=== PATIENT | male | born 1965 | race Caucasian/White ===

== ENCOUNTER 2017-02-22 11:43 | Emergency (ER) | payer BC ==
[2017-02-22] MEDS ORDERED: IBUPROFEN 600 MG TAB PO STA (12:16)
[2017-02-22] MEDS ORDERED: ACETAMINOPHEN TAB 500 MG TAB PO STA (12:16)
[2017-02-22] MEDS ORDERED: ALBUTEROL NEBULIZED 7.5 MG, IPRATROPIUM NEBULIZED 0.5 MG, SODIUM CHLORIDE 0.9% NEBULIZ ... INHALATION ONE ×3 (12:17)
[2017-02-22] MEDS ORDERED: methylPREDNISolone SOD SUCCI 125 MG/2 ML VIAL IV STA (12:17)
--- NOTE | 2017-02-22 12:21 | ED ---
General Adult HPI - General Chief complaint: Shortness of Breath Stated complaint: diff breathing,weakness Time Seen by Provider: 02/22/17 11:55 Source: patient, RN notes reviewed Mode of arrival: wheelchair Limitations: no limitations - History of Present Illness Initial comments: This is a 51-year-old male who presents emergency Department complaining of difficulty breathing. Patient states he has COPD and he still smokes. Patient states difficulty breathing his been ongoing for over a week. Patient states today he got so bad he decided he needed to come emergency department. Patient denies chest pain or palpitations. Patient denies any cough or fever. Patient denies any abdominal pain patient denies nausea vomiting diarrhea. Patient's other complaint is for over a month now his right leg is causing quite a bit of pain and dusky in appearance. - Related Data Home Medications Medication Instructions Recorded Confirmed ALPRAZolam [Xanax] 0.5 mg PO Q8H 02/22/17 02/22/17 Albuterol Inhaler [Ventolin Hfa 1 - 2 puff INHALATION RT-QID PRN 02/22/17 Inhaler] Citalopram Hydrobromide [CeleXA] 20 mg PO BID 02/22/17 02/22/17 Fish Oil/Dha/Epa [Fish Oil 1,200 1 cap PO DAILY 02/22/17 02/22/17 mg Fish Oil] Naproxen Sodium [Aleve] 220 mg PO BID PRN 02/22/17 02/22/17 Allergies Allergy/AdvReac Type Severity Reaction Status Date / Time No Known Allergies Allergy Verified 02/22/17 12:29 Review of Systems ROS Statement: Those systems with pertinent positive or pertinent negative responses have been documented in the HPI. ROS Other: All systems not noted in ROS Statement are negative. Past Medical History Past Medical History: Asthma History of Any Multi-Drug Resistant Organisms: None Reported Past Surgical History: Orthopedic Surgery Past Psychological History: Anxiety, Depression Smoking Status: Current every day smoker Past Alcohol Use History: Heavy, Occasional Past Drug Use History: None Reported General Exam - General Exam Comments Initial Comments: GENERAL: Patient is well-developed and well-nourished. Patient is nontoxic and well- hydrated and is in moderate distress. ENT: Neck is soft and supple. No significant lymphadenopathy is noted. Oropharynx is clear. Moist mucous membranes. Neck has full range of motion without eliciting any pain. EYES: The sclera were anicteric and conjunctiva were pink and moist. Extraocular movements were intact and pupils were equal round and reactive to light. Eyelids were unremarkable. PULMONARY: Diminished breath sounds bilaterally. CARDIOVASCULAR: There is a regular rate and rhythm without any murmurs gallops or rubs. ABDOMEN: Soft and nontender with normal bowel sounds. No palpable organomegaly was noted. There is no palpable pulsatile mass. SKIN: Right leg is dusky has extremely poor Refill and pulses in the foot cannot be palpated time NEUROLOGIC: Patient is alert and oriented x3. Cranial nerves II through XII are grossly intact. Motor and sensory are also intact. Normal speech, volume and content. Symmetrical smile. MUSCULOSKELETAL: Normal extremities with adequate strength and full range of motion. No lower extremity swelling or edema. No calf tenderness. LYMPHATICS: No significant lymphadenopathy is noted PSYCHIATRIC: Normal psychiatric evaluation. Limitations: no limitations Course Vital Signs 02/22/17 02/22/17 02/22/17 11:53 12:41 13:00 Temperature 99.9 F H Pulse Rate 122 H 109 H Respiratory 22 24 20 Rate Blood Pressure 133/79 151/94 O2 Sat by Pulse 100 Oximetry 02/22/17 02/22/17 02/22/17 13:01 13:17 13:34 Temperature Pulse Rate 114 H 120 H 114 H Respiratory Rate Blood Pressure O2 Sat by Pulse Oximetry 02/22/17 02/22/17 14:00 14:14 Temperature Pulse Rate 98 98 Respiratory 20 20 Rate Blood Pressure 137/74 125/68 O2 Sat by Pulse 100 100 Oximetry Medical Decision Making - Medical Decision Making EKG shows sinus tachycardia at 112 bpm [place] interval is 142 QRS is 92 QT interval 342 QTC is 466. Patient's EKG shows no ST segment elevation or depression or T wave abnormalities are noted. Patient received steroids and 3 consecutive breathing treatments and they seem to help him he did have slightly better air movement but patient did feel better. Patient has had a CT of chest and pelvis with runoff and it showed an occluded right femoral artery in the proximal area. With a partial occluded popliteal artery. I spoke with Dr. Staton who was on-call for Dr. Thomas for this patient I'm admitting him for COPD exacerbation. Dr. Solo was called earlier he did come see the patient and I made him aware of the CT results after they were done. Once Dr. Solo came back a second time to reevaluate the patient with the CAT scan information it was determined that the patient should be transferred to a tertiary center. I spoke with [facility] and they accepted the transfer and I transferred the patient. - Lab Data Result diagrams: 02/22/17 12:26 02/22/17 12:26 Lab Results 02/22/17 02/22/17 02/22/17 Range/Units 12:26 12:26 12:26 WBC 7.6 (3.8-10.6) k/uL RBC >7.00 H (4.30-5.90) m/uL Hgb 22.9 H* (13.0-17.5) gm/dL Hct 64.4 H* (39.0-53.0) % MCV 89.4 (80.0-100.0) fL MCH 31.8 (25.0-35.0) pg MCHC 35.6 (31.0-37.0) g/dL RDW 13.0 (11.5-15.5) % Plt Count 190 (150-450) k/uL Neutrophils % 78 % Lymphocytes % 10 % Monocytes % 8 % Eosinophils % 1 % Basophils % 1 % Neutrophils # 5.9 (1.3-7.7) k/uL Lymphocytes # 0.8 L (1.0-4.8) k/uL Monocytes # 0.6 (0-1.0) k/uL Eosinophils # 0.0 (0-0.7) k/uL Basophils # 0.1 (0-0.2) k/uL PT (9.0-12.0) sec INR (<1.2) APTT (22.0-30.0) sec D-Dimer <0.17 (<0.60) mg/L FEU Sodium (137-145) mmol/L Potassium (3.5-5.1) mmol/L Chloride (98-107) mmol/L Carbon Dioxide (22-30) mmol/L Anion Gap mmol/L BUN (9-20) mg/dL Creatinine (0.66-1.25) mg/dL Est GFR (MDRD) Af Amer (>60 ml/min/1.73 sqM) Est GFR (MDRD) Non-Af (>60 ml/min/1.73 sqM) Glucose (74-99) mg/dL Plasma Lactic Acid Rajeev (0.7-2.0) mmol/L Calcium (8.4-10.2) mg/dL Total Bilirubin (0.2-1.3) mg/dL AST (17-59) U/L ALT (21-72) U/L Alkaline Phosphatase (38-126) U/L Total Creatine Kinase 81 (55-170) U/L CK-MB (CK-2) 1.7 (0.0-2.4) ng/mL CK-MB (CK-2) Rel Index 2.1 Troponin I <0.012 (0.000-0.034) ng/mL Total Protein (6.3-8.2) g/dL Albumin (3.5-5.0) g/dL Urine Color Urine Appearance (Clear) Urine pH (5.0-8.0) Ur Specific [place] (1.001-1.035) Urine Protein (Negative) Urine Glucose (UA) (Negative) Urine Ketones (Negative) Urine Blood (Negative) Urine Nitrite (Negative) Urine Bilirubin (Negative) Urine Urobilinogen (<2.0) mg/dL Ur Leukocyte Esterase (Negative) Urine RBC (0-5) /hpf Urine WBC (0-5) /hpf Hyaline Casts (0-2) /lpf Urine Mucus (None) /hpf 02/22/17 02/22/17 02/22/17 Range/Units 12:26 12:26 13:06 WBC (3.8-10.6) k/uL RBC (4.30-5.90) m/uL Hgb (13.0-17.5) gm/dL Hct (39.0-53.0) % MCV (80.0-100.0) fL MCH (25.0-35.0) pg MCHC (31.0-37.0) g/dL RDW (11.5-15.5) % Plt Count (150-450) k/uL Neutrophils % % Lymphocytes % % Monocytes % % Eosinophils % % Basophils % % Neutrophils # (1.3-7.7) k/uL Lymphocytes # (1.0-4.8) k/uL Monocytes # (0-1.0) k/uL Eosinophils # (0-0.7) k/uL Basophils # (0-0.2) k/uL PT 11.1 (9.0-12.0) sec INR 1.1 (<1.2) APTT 25.0 (22.0-30.0) sec D-Dimer (<0.60) mg/L FEU Sodium 123 L (137-145) mmol/L Potassium 4.7 (3.5-5.1) mmol/L Chloride 90 L (98-107) mmol/L Carbon Dioxide 17 L (22-30) mmol/L Anion Gap 16 mmol/L BUN 7 L (9-20) mg/dL Creatinine 0.85 (0.66-1.25) mg/dL Est GFR (MDRD) Af Amer >60 (>60 ml/min/1.73 sqM) Est GFR (MDRD) Non-Af >60 (>60 ml/min/1.73 sqM) Glucose 126 H (74-99) mg/dL Plasma Lactic Acid Rajeev 3.3 H* (0.7-2.0) mmol/L Calcium 10.1 (8.4-10.2) mg/dL Total Bilirubin 3.1 H (0.2-1.3) mg/dL AST 74 H (17-59) U/L ALT 51 (21-72) U/L Alkaline Phosphatase 135 H (38-126) U/L Total Creatine Kinase (55-170) U/L CK-MB (CK-2) (0.0-2.4) ng/mL CK-MB (CK-2) Rel Index Troponin I (0.000-0.034) ng/mL Total Protein 8.5 H (6.3-8.2) g/dL Albumin 4.8 (3.5-5.0) g/dL Urine Color Urine Appearance (Clear) Urine pH (5.0-8.0) Ur Specific [place] (1.001-1.035) Urine Protein (Negative) Urine Glucose (UA) (Negative) Urine Ketones (Negative) Urine Blood (Negative) Urine Nitrite (Negative) Urine Bilirubin (Negative) Urine Urobilinogen (<2.0) mg/dL Ur Leukocyte Esterase (Negative) Urine RBC (0-5) /hpf Urine WBC (0-5) /hpf Hyaline Casts (0-2) /lpf Urine Mucus (None) /hpf 02/22/17 Range/Units 13:17 WBC (3.8-10.6) k/uL RBC (4.30-5.90) m/uL Hgb (13.0-17.5) gm/dL Hct (39.0-53.0) % MCV (80.0-100.0) fL MCH (25.0-35.0) pg MCHC (31.0-37.0) g/dL RDW (11.5-15.5) % Plt Count (150-450) k/uL Neutrophils % % Lymphocytes % % Monocytes % % Eosinophils % % Basophils % % Neutrophils # (1.3-7.7) k/uL Lymphocytes # (1.0-4.8) k/uL Monocytes # (0-1.0) k/uL Eosinophils # (0-0.7) k/uL Basophils # (0-0.2) k/uL PT (9.0-12.0) sec INR (<1.2) APTT (22.0-30.0) sec D-Dimer (<0.60) mg/L FEU Sodium (137-145) mmol/L Potassium (3.5-5.1) mmol/L Chloride (98-107) mmol/L Carbon Dioxide (22-30) mmol/L Anion Gap mmol/L BUN (9-20) mg/dL Creatinine (0.66-1.25) mg/dL Est GFR (MDRD) Af Amer (>60 ml/min/1.73 sqM) Est GFR (MDRD) Non-Af (>60 ml/min/1.73 sqM) Glucose (74-99) mg/dL Plasma Lactic Acid Rajeev (0.7-2.0) mmol/L Calcium (8.4-10.2) mg/dL Total Bilirubin (0.2-1.3) mg/dL AST (17-59) U/L ALT (21-72) U/L Alkaline Phosphatase (38-126) U/L Total Creatine Kinase (55-170) U/L CK-MB (CK-2) (0.0-2.4) ng/mL CK-MB (CK-2) Rel Index Troponin I (0.000-0.034) ng/mL Total Protein (6.3-8.2) g/dL Albumin (3.5-5.0) g/dL Urine Color [place] Urine Appearance Clear (Clear) Urine pH 6.5 (5.0-8.0) Ur Specific [place] 1.014 (1.001-1.035) Urine Protein Trace H (Negative) Urine Glucose (UA) Negative (Negative) Urine Ketones 2+ H (Negative) Urine Blood Negative (Negative) Urine Nitrite Negative (Negative) Urine Bilirubin 1+ H (Negative) Urine Urobilinogen 4.0 (<2.0) mg/dL Ur Leukocyte Esterase Moderate H (Negative) Urine RBC 1 (0-5) /hpf Urine WBC 9 H (0-5) /hpf Hyaline Casts 11 H (0-2) /lpf Urine Mucus Rare H (None) /hpf Critical Care Time Critical Care Time: Yes Total Critical Care Time: 35 Disposition Clinical Impression: Polycythemia, Femoral artery occlusion, COPD with acute exacerbation Disposition: OTHER INSTITUTION NOT DEFINED Referrals: Blas Espinal MD [Primary Care Provider] - 1-2 days Time of Disposition: 14:35 - Out of Hospital Transfer - Req. Specs Out of Hospital Transfer - Requested Specifics: Other Emergency Center ([facility])
[2017-02-22 12:40] LABS: Basophils # (A) 0.1 k/uL (0-0.2); Basophils % (A) 1 %; CH 32.2; CHCM 36.1; Eosinophils % (A) 1 %; HDW 2.06; Luc # (Auto) 0.24; Luc % (Auto) 3; Lymphocytes # (A) 0.8 k/uL (1.0-4.8); Lymphocytes % (A) 10 %; MCH 31.8 pg (25.0-35.0); MCHC 35.6 g/dL (31.0-37.0); MCV 89.4 fL (80.0-100.0); Mean Platelet Volume 7.1; Monocytes # (A) 0.6 k/uL (0-1.0); Monocytes % (A) 8 %; Neutrophils # (A) 5.9 k/uL (1.3-7.7); Neutrophils % (A) 78 %; WBC 7.6 k/uL (3.8-10.6); WBC (Perox) 7.81
[2017-02-22 12:49] LABS: HGB 22.9 gm/dL (13.0-17.5)
[2017-02-22 12:50] LABS: HCT 64.4 % (39.0-53.0); RBC >7.00 m/uL (4.30-5.90)
[2017-02-22 12:57] LABS: ALT 51 U/L (21-72); AST 74 U/L (17-59); Alkaline Phosphatase 135 U/L (38-126); Anion Gap 16 mmol/L; Blood Urea Nitrogen 7 mg/dL (9-20); Calcium 10.1 mg/dL (8.4-10.2); Carbon Dioxide 17 mmol/L (22-30); Chloride 90 mmol/L (98-107); Glucose 126 mg/dL (74-99); Non-African American GFR(MDRD) >60 (>60 ml/min/1.73 sqM); Potassium 4.7 mmol/L (3.5-5.1); Sodium 123 mmol/L (137-145); Total Bilirubin 3.1 mg/dL (0.2-1.3); Total Protein 8.5 g/dL (6.3-8.2)
[2017-02-22 13:01] LABS: Creatine Kinase 81 U/L (55-170)
--- NOTE | 2017-02-22 13:09 | XR ---
EXAMINATION TYPE: XR chest 2V DATE OF EXAM: 02/22/2017 COMPARISON: NONE HISTORY: Shortness of breath and asthma TECHNIQUE: Frontal and lateral views of the chest are obtained. FINDINGS: There is no focal air space opacity, pleural effusion, or pneumothorax seen. There is pulm onary hyperinflation and flattening of the diaphragms on the lateral image. The cardiac silhouette si ze is within normal limits. The osseous structures are intact. Overlying wire is seen at the right cardiophrenic angle. Mild degenerative changes of the thoracic spine. IMPRESSION: 1. No acute cardiopulmonary process. 2. Pulmonary hyperinflation, likely relating to the patient's history of asthma.
[2017-02-22 13:14] LABS: Creatine Kinase MB 1.7 ng/mL (0.0-2.4); Troponin I <0.012 ng/mL (0.000-0.034)
[2017-02-22] MEDS ORDERED: LORazepam 2 MG/ML SYRINGE IV STA (13:21)
[2017-02-22 13:35] LABS: Appearance,Urine Clear (Clear); Bilirubin,Urine 1+ (Negative); Glucose,Urine (UA) Negative (Negative); Ketones,Urine 2+ (Negative); Leukocyte Esterase,Urine Moderate (Negative); Mucus,Urine Rare /hpf; Nitrite,Urine Negative (Negative); PH, Urine 6.5 (5.0-8.0); Particle Count 3188; Protein,Urine Trace (Negative); RBC,Urine 1 /hpf (0-5); Specific Gravity,Urine 1.014 (1.001-1.035); UA Billing (MACRO vs. MICRO) MICRO; WBC,Urine 9 /hpf (0-5)
[2017-02-22 13:53] LABS: INR 1.1 (<1.2)
[2017-02-22 14:08] LABS: Prothrombin Time 11.1 sec (9.0-12.0)
--- NOTE | 2017-02-22 14:22 | CT ---
EXAMINATION TYPE: CT angio thoracic/abd aorta DATE OF EXAM: 02/22/2017 COMPARISON: NONE HISTORY: Discoloration right leg for [address] DLP: 977.5 mGycm. Automated Exposure Control for Dose Reduction was Utilized. CONTRAST: CT scan of the thorax, abdomen and pelvis is performed with IV Contrast, patient injected with 150 mL of Omnipaque 350. Three-dimensional reconstructions performed on an alternate workstation. FINDINGS: LUNGS: The lungs are grossly clear, there is no concerning parenchymal mass or nodule identified. Em physematous changes, interstitial lung disease change is present bilaterally. There is no pleural eff usion or pneumothorax seen. The tracheobronchial tree is patent. MEDIASTINUM: There are no greater than 1 cm hilar or mediastinal lymph nodes. No pericardial effusi on is seen. Small prevascular node is present. There are coronary artery calcifications present. OTHER: No additional significant abnormality is seen. LIVER/GB: The liver shows low attenuation likely due to fatty infiltration, the liver is enlarged. Ga llbladder is unremarkable. PANCREAS: No significant abnormality is seen. SPLEEN: No significant abnormality is seen. ADRENALS: No significant abnormality is seen. KIDNEYS: No significant abnormality is seen. BOWEL: Diverticular changes associated with the colon especially in the sigmoid region, descending co daren. GENITAL ORGANS: No gross abnormality seen. LYMPH NODES: No greater than 1cm abdominal or pelvic lymph nodes are appreciated. OSSEOUS STRUCTURES: Degenerative disc changes, facet arthropathy results in spinal stenosis at L4-5.. The aorta shows atheromatous change. The aorta shows normal caliber. No evident dissection. Three-ves beth transverse aorta is present, superior aortic branch vessels are patent. Celiac axis, superior mes enteric, renal arteries, inferior mesenteric artery are patent. Common iliac arteries are patent and densely calcified. Internal iliac, external iliac arteries are patent. Common femoral arteries are pa tent. The proximal right superficial femoral artery is occluded. Deep femoral branches are present, there i s reconstitution of the right popliteal artery above the level of the knee. Dense atheromatous change s are present in the popliteal artery, there is narrowing of the popliteal artery as well as associat ed calcification. Trifurcation vessels are patent proximally. Posterior tibial artery not well seen p eripherally, there are likely areas of plaque and stenosis extends peripherally. There is poor opacif ication of the peroneal artery, posterior tibial artery distally on the left. Stenoses. Anterior tibi al artery shows atheromatous change distally and possibly segmental stenosis. The left official femoral artery shows extensive atheromatous change with tendon stenoses. Deep femor al artery is patent. Popliteal artery also shows extensive atheromatous change and areas of narrowing . There may be popliteal aneurysm on the left, popliteal artery measures approximately 11 to 12 mm an d shows luminal plaque. Narrowing of the popliteal artery is present at this level. Trifurcation appe ars patent but shows atheromatous changes IMPRESSION: Right superficial femoral artery occlusion proximally as described. Peripheral vascular o cclusive disease. 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 Emphysema, in terstitial lung disease, coronary artery disease. Diverticulosis. Hepatic steatosis. Additional findi ngs above.
[2017-02-22] MEDS ORDERED: HEPARIN SODIUM,PORCINE/D5W PMX 25,000 UNIT in DEXTROSE/WATER 1 500ML.BAG IV SCH (14:36)
[2017-02-22] MEDS ORDERED: HEPARIN SODIUM,PORCINE 10,000 UNIT/ML 1 ML VIAL IV ONE (14:36)
[2017-02-22] MEDS ORDERED: IPRATROPIUM-ALBUTEROL 3 ML NEB INHALATION PRN (14:39)
[2017-02-22 15:22] VITALS: RESP 18
[2017-02-22 16:01] VITALS: BP 123/96; PULSE 104; TEMP 98.6
[2017-02-22] MEDS ORDERED: methylPREDNISolone SOD SUCCI 125 MG/2 ML VIAL IV SCH (18:00)
--- NOTE | 2017-02-23 08:10 | CONS ---
Date of consultation: 02-22-17 This is a 51-year-old gentleman who came to the emergency room with history of acute respiratory failure with severe chronic obstructive pulmonary disease. Patient has been complaining of some right foot pain for the last one month on and off and I was consulted for vascular evaluation on this gentleman. Patient has history of three packs a day smoking for the last 30-years. Also he has been diagnosed with severe chronic obstructive pulmonary disease. MEDICAL HISTORY: No history of diabetes, hypertension. PERSONAL HISTORY: Patient smoked three packs a day for the last 30-years. On examination the patient was seen in the room. The patient is extremely short of breath and has nasal oxygen and he cannot lay flat. He is in sitting position. His chest has crackles bilaterally. Abdomen is soft, nontender. Vascular examination: Brachial, radial pulses are present. Femorals are palpable bilaterally. Right leg is cooler than the left leg. Popliteal, posterior tibial and dorsalis pedis are not palpable. On the left side also the popliteal and posterior tibial and dorsalis pedis are not palpable. The right foot is more dusky than the left foot and there is no Doppler signal present of the dorsalis pedis and posterior tibial. On the left foot there is Doppler signal present. Motor function is diminished on the right side. Patient had CT of the chest and abdomen. CT was reviewed with the radiologist. Patient has atherosclerosis disease involving both iliac arteries and right common femoral artery was visualized. Profunda is not visualized. SFA is occluded from the takeoff and it reconstitutes above the knee with multiple atherosclerosis disease. Popliteal has severe atherosclerosis disease. There is very small tibial vessel noted below the knee and no flow noted to the foot. Patient was started on heparin. I have discussed with the sister and the mother. At this point this 51-year-old gentleman who has longstanding history of smoking prognosis is guarded because of diminutive flow noted to the right foot. Family wants to have a second opinion and we will arrange to go to tertiary center at [facility]. Patient started on heparin. Discussed with emergency room physician. They all agreed. [facility]
== END 2017-02-22 16:00 | disposition other institution (70) ==
LOC: EC 11:43 → UNDOADMIN 14:39 → 6SEL 14:39 → EC 16:00
DX: I74.3 Embolism and thrombosis of arteries of the lower extremities (principal); D75.1 Secondary polycythemia; R00.0 Tachycardia, unspecified; J44.1 Chronic obstructive pulmonary disease with (acute) exacerbation; F41.9 Anxiety disorder, unspecified; F32.9 Major depressive disorder, single episode, unspecified; F17.200 Nicotine dependence, unspecified, uncomplicated; Z79.899 Other long term (current) drug therapy
CPT/HCPCS: 96375 ×3; 96376 ×2; 96365 ×2; 99291 ×2; 36415; 94644; 93005; 85379; 80053; 82550; 82553; 83605; 84484; 85025; 85610; 85730; 81001; 87040; 87086; 71020; 75635; 71275; J2060; J1644 ×2; J2930; Q9967

== ENCOUNTER 2017-03-02 10:18 | Inpatient (IN) | payer BC ==
[2017-03-02] MEDS ORDERED: SODIUM CHLORIDE 0.9% 500 ML IV STA (11:04)
[2017-03-02 11:26] LABS: INR 4.6 (<1.2); Partial Thromboplastin Time 32.5 sec (22.0-30.0); Prothrombin Time 45.6 sec (9.0-12.0)
[2017-03-02 11:28] LABS: Basophils # (A) 0.1 k/uL (0-0.2); Basophils % (A) 1 %; CH 32.5; CHCM 33.5; Eosinophils # (A) 0.1 k/uL (0-0.7); Eosinophils % (A) 1 %; HCT 38.2 % (39.0-53.0); HDW 2.23; Luc # (Auto) 0.23; Luc % (Auto) 2; Lymphocytes # (A) 1.7 k/uL (1.0-4.8); Lymphocytes % (A) 18 %; MCH 31.5 pg (25.0-35.0); MCHC 32.4 g/dL (31.0-37.0); Mean Platelet Volume 8.2; Monocytes # (A) 0.6 k/uL (0-1.0); Monocytes % (A) 6 %; Neutrophils # (A) 6.6 k/uL (1.3-7.7); Neutrophils % (A) 71 %; RBC 3.92 m/uL (4.30-5.90); RDW 13.6 % (11.5-15.5); WBC 9.2 k/uL (3.8-10.6); WBC (Perox) 9.43
[2017-03-02 11:29] LABS: HGB 12.4 gm/dL (13.0-17.5); MCV 97.2 fL (80.0-100.0)
[2017-03-02] MEDS ORDERED: PANTOPRAZOLE 40 MG/10 ML VIAL IVP ONE (11:30)
[2017-03-02 11:39] LABS: ALT 52 U/L (21-72); AST 37 U/L (17-59); Alkaline Phosphatase 53 U/L (38-126); Anion Gap 8 mmol/L; Blood Urea Nitrogen 41 mg/dL (9-20); Calcium 8.7 mg/dL (8.4-10.2); Carbon Dioxide 22 mmol/L (22-30); Chloride 104 mmol/L (98-107); Creatine Kinase 31 U/L (55-170); Glucose 98 mg/dL (74-99); Magnesium 1.6 mg/dL (1.6-2.3); Non-African American GFR(MDRD) >60 (>60 ml/min/1.73 sqM); Potassium 4.2 mmol/L (3.5-5.1); Sodium 134 mmol/L (137-145); Total Bilirubin 0.4 mg/dL (0.2-1.3); Total Protein 5.5 g/dL (6.3-8.2)
[2017-03-02 11:51] LABS: Creatine Kinase MB 0.6 ng/mL (0.0-2.4); Troponin I <0.012 ng/mL (0.000-0.034)
[2017-03-02] MEDS ORDERED: NALOXONE 0.4 MG/ML 1 ML VIAL IV PRN (12:12)
[2017-03-02] MEDS ORDERED: PHYTONADIONE 5 MG in SODIUM CHLORIDE 0.9% 50 ML IVPB STA (12:36)
--- NOTE | 2017-03-02 12:46 | ED ---
General Adult HPI - General Chief complaint: GI Bleed Stated complaint: Low BP Time Seen by Provider: 03/02/17 10:30 Source: patient, family, RN notes reviewed, old records reviewed Mode of arrival: ambulatory Limitations: no limitations - History of Present Illness Initial comments: 51-year-old male with past medical history of COPD, peripheral vascular disease recently started on Coumadin presents with 10 episodes of dark stool, which progressed to bright red blood with blood clots. This began yesterday. He had not had a bowel movement in approximately one week. One week ago patient presented to the emergency department with chief complaint one month of pain in his right leg. He was found to have an arterial occlusion. He was sent to [facility] where he had a femoral bypass, these exact records are not available at the time this dictation, patient was started on Lovenox and Coumadin. Last dose of each of these was yesterday. At initial presentation the patient is complaining of generalized weakness and is thirsty. He denies significant abdominal pain. No known history of GI bleed. - Related Data Home Medications Medication Instructions Recorded Confirmed ALPRAZolam [Xanax] 0.5 mg PO Q8H 02/22/17 03/02/17 Albuterol Inhaler [Ventolin Hfa 1 - 2 puff INHALATION RT-QID PRN 02/22/17 Inhaler] Citalopram Hydrobromide [CeleXA] 20 mg PO BID 02/22/17 03/02/17 Fish Oil/Dha/Epa [Fish Oil 1,200 1 cap PO DAILY 02/22/17 03/02/17 mg Fish Oil] Naproxen Sodium [Aleve] 220 mg PO BID PRN 02/22/17 03/02/17 Aspirin 81 mg PO DAILY 03/02/17 03/02/17 Atorvastatin [Lipitor] 40 mg PO DIRECTED 03/02/17 03/02/17 Enoxaparin [Lovenox] 100 mg SQ Q12H 03/02/17 03/02/17 Warfarin [Coumadin] 7.5 mg PO HS 03/02/17 03/02/17 oxyCODONE HCL [Oxyir] 5 mg PO Q4HR PRN 03/02/17 03/02/17 Allergies Allergy/AdvReac Type Severity Reaction Status Date / Time No Known Allergies Allergy Verified 03/02/17 11:31 Review of Systems ROS Statement: Those systems with pertinent positive or pertinent negative responses have been documented in the HPI. ROS Other: All systems not noted in ROS Statement are negative. Past Medical History Past Medical History: Asthma Additional Past Medical History / Comment(s): dvt etoh abuse History of Any Multi-Drug Resistant Organisms: None Reported Past Surgical History: Orthopedic Surgery Additional Past Surgical History / Comment(s): fem pop bipass Past Psychological History: Anxiety, Depression Smoking Status: Former smoker Past Alcohol Use History: None Reported, Heavy, Occasional Past Drug Use History: None Reported General Exam Limitations: no limitations General appearance: alert, lethargic, in distress Head exam: Present: atraumatic, normocephalic Eye exam: Present: normal appearance, other (Pale palpebral conjunctiva) ENT exam: Present: mucous membranes dry Respiratory exam: Present: normal lung sounds bilaterally. Absent: respiratory distress, wheezes Cardiovascular Exam: Present: tachycardia GI/Abdominal exam: Present: soft. Absent: distended, tenderness Rectal exam: Present: heme (+) stool, bloody stool Extremities exam: Present: normal inspection, full ROM, normal capillary refill , other (Bilateral 2+ pulses, DP signals present.). Absent: pedal edema Neurological exam: Present: alert, oriented X3, CN II-XII intact. Absent: motor sensory deficit Psychiatric exam: Present: normal affect, normal mood Skin exam: Present: pallor. Absent: cyanosis, diaphoretic Course Vital Signs 03/02/17 03/02/17 03/02/17 10:22 10:27 11:27 Temperature 98.1 F 98.2 F Pulse Rate 102 H 96 Respiratory 20 19 Rate Blood Pressure 89/54 98/59 O2 Sat by Pulse 92 L 99 Oximetry 03/02/17 12:00 Temperature Pulse Rate 87 Respiratory 19 Rate Blood Pressure 96/61 O2 Sat by Pulse 100 Oximetry - Reevaluation(s) Reevaluation #1: 03/02/17 12:38 Patient is reevaluated multiple times. Blood pressure does remain low. Patient is responsive, able to answer questions, somewhat lethargic. EKG Findings - EKG Comments: EKG Findings:: EKG shows normal sinus rhythm, ventricular rate 98, ND interval 126, QRS duration 84, QTC 413 Procedures - Central Line Placement Right SC Consent Obtained: verbal consent Time Out Performed: Yes Patient Placed on Monitor/Pulse Ox: Yes Prep: mask, gown, gloves Central Line Prep: Chlorhexidine scrub, sterile drapes applied Local Anesthesia Used: Lidocaine 1% Amount of Anesthesia Used (mls): 2 Ultrasound Used for Placement: No Central Line Lumen Inserted: triple Bloods Obtained for Lab: Yes Central Line Position: good blood return, all ports aspirated, flushed, capped, sutured in place with 2-0 silk Dressing Applied: Tegaderm Post Procedure X-Ray: other (Pending) Patient Tolerated Procedure: well Complications: none, other (Pending x-ray) Medical Decision Making - Medical Decision Making 51-year-old male with recent femoral bypass surgery, started on Coumadin and Lovenox presents with GI bleed. Bleed is significant. His had 10 episodes of bright red blood with clots. Patient is initially hypotensive and tachycardic. He does receive moderate resuscitation with normal saline. 2 units of packed RBCs is ordered and 2 units of fresh frozen plasma for INR reversal is ordered. Initial hemoglobin is 12, however hemoglobin one week ago was 23, this represents 11 g drop in hemoglobin. Despite the relatively normal hemoglobin at this time. He will be empirically transfused 2 units of packed RBCs. Case is discussed with vascular surgery given his recent femoral bypass, at this time the recommendation is to reverse his anticoagulation even in the setting of this recent operation considering the risk of exsanguination. Case is also discussed with gastroenterology. Patient will be admitted to the intensive care unit for further resuscitation and treatment. Right subclavian triple lumen is placed in the emergency department. Patient currently receiving transfusion. Diagnosis: Hemorrhagic shock, acute GI bleed likely lower, acute blood loss anemia. - Lab Data Result diagrams: 03/02/17 11:06 03/02/17 11:06 Lab Results 03/02/17 03/02/17 03/02/17 Range/Units 11:05 11:06 11:06 WBC 9.2 (3.8-10.6) k/uL RBC 3.92 L (4.30-5.90) m/uL Hgb 12.4 L D (13.0-17.5) gm/dL Hct 38.2 L (39.0-53.0) % MCV 97.2 D (80.0-100.0) fL MCH 31.5 (25.0-35.0) pg MCHC 32.4 (31.0-37.0) g/dL RDW 13.6 (11.5-15.5) % Plt Count 281 (150-450) k/uL Neutrophils % 71 % Lymphocytes % 18 % Monocytes % 6 % Eosinophils % 1 % Basophils % 1 % Neutrophils # 6.6 (1.3-7.7) k/uL Lymphocytes # 1.7 (1.0-4.8) k/uL Monocytes # 0.6 (0-1.0) k/uL Eosinophils # 0.1 (0-0.7) k/uL Basophils # 0.1 (0-0.2) k/uL PT (9.0-12.0) sec INR (<1.2) APTT (22.0-30.0) sec Sodium (137-145) mmol/L Potassium (3.5-5.1) mmol/L Chloride (98-107) mmol/L Carbon Dioxide (22-30) mmol/L Anion Gap mmol/L BUN (9-20) mg/dL Creatinine (0.66-1.25) mg/dL Est GFR (MDRD) Af Amer (>60 ml/min/1.73 sqM) Est GFR (MDRD) Non-Af (>60 ml/min/1.73 sqM) Glucose (74-99) mg/dL Plasma Lactic Acid Rajeev (0.7-2.0) mmol/L Calcium (8.4-10.2) mg/dL Magnesium (1.6-2.3) mg/dL Total Bilirubin (0.2-1.3) mg/dL AST (17-59) U/L ALT (21-72) U/L Alkaline Phosphatase (38-126) U/L Total Creatine Kinase 31 L (55-170) U/L CK-MB (CK-2) 0.6 (0.0-2.4) ng/mL CK-MB (CK-2) Rel Index 1.9 Troponin I <0.012 (0.000-0.034) ng/mL Total Protein (6.3-8.2) g/dL Albumin (3.5-5.0) g/dL Stool Occult Blood Positive (Negative) Blood Type Blood Type Recheck Antibody Screen Crossmatch Transfuse Plasma Spec Expiration Date 03/02/17 03/02/17 03/02/17 Range/Units 11:06 11:06 11:06 WBC (3.8-10.6) k/uL RBC (4.30-5.90) m/uL Hgb (13.0-17.5) gm/dL Hct (39.0-53.0) % MCV (80.0-100.0) fL MCH (25.0-35.0) pg MCHC (31.0-37.0) g/dL RDW (11.5-15.5) % Plt Count (150-450) k/uL Neutrophils % % Lymphocytes % % Monocytes % % Eosinophils % % Basophils % % Neutrophils # (1.3-7.7) k/uL Lymphocytes # (1.0-4.8) k/uL Monocytes # (0-1.0) k/uL Eosinophils # (0-0.7) k/uL Basophils # (0-0.2) k/uL PT 45.6 H (9.0-12.0) sec INR 4.6 H (<1.2) APTT 32.5 H (22.0-30.0) sec Sodium 134 L (137-145) mmol/L Potassium 4.2 (3.5-5.1) mmol/L Chloride 104 (98-107) mmol/L Carbon Dioxide 22 (22-30) mmol/L Anion Gap 8 mmol/L BUN 41 H (9-20) mg/dL Creatinine 0.80 (0.66-1.25) mg/dL Est GFR (MDRD) Af Amer >60 (>60 ml/min/1.73 sqM) Est GFR (MDRD) Non-Af >60 (>60 ml/min/1.73 sqM) Glucose 98 (74-99) mg/dL Plasma Lactic Acid Rajeev 1.9 (0.7-2.0) mmol/L Calcium 8.7 (8.4-10.2) mg/dL Magnesium 1.6 (1.6-2.3) mg/dL Total Bilirubin 0.4 (0.2-1.3) mg/dL AST 37 (17-59) U/L ALT 52 (21-72) U/L Alkaline Phosphatase 53 (38-126) U/L Total Creatine Kinase (55-170) U/L CK-MB (CK-2) (0.0-2.4) ng/mL CK-MB (CK-2) Rel Index Troponin I (0.000-0.034) ng/mL Total Protein 5.5 L (6.3-8.2) g/dL Albumin 3.0 L (3.5-5.0) g/dL Stool Occult Blood (Negative) Blood Type Blood Type Recheck Antibody Screen Crossmatch Transfuse Plasma Spec Expiration Date 03/02/17 03/02/17 Range/Units 11:06 11:46 WBC (3.8-10.6) k/uL RBC (4.30-5.90) m/uL Hgb (13.0-17.5) gm/dL Hct (39.0-53.0) % MCV (80.0-100.0) fL MCH (25.0-35.0) pg MCHC (31.0-37.0) g/dL RDW (11.5-15.5) % Plt Count (150-450) k/uL Neutrophils % % Lymphocytes % % Monocytes % % Eosinophils % % Basophils % % Neutrophils # (1.3-7.7) k/uL Lymphocytes # (1.0-4.8) k/uL Monocytes # (0-1.0) k/uL Eosinophils # (0-0.7) k/uL Basophils # (0-0.2) k/uL PT (9.0-12.0) sec INR (<1.2) APTT (22.0-30.0) sec Sodium (137-145) mmol/L Potassium (3.5-5.1) mmol/L Chloride (98-107) mmol/L Carbon Dioxide (22-30) mmol/L Anion Gap mmol/L BUN (9-20) mg/dL Creatinine (0.66-1.25) mg/dL Est GFR (MDRD) Af Amer (>60 ml/min/1.73 sqM) Est GFR (MDRD) Non-Af (>60 ml/min/1.73 sqM) Glucose (74-99) mg/dL Plasma Lactic Acid Rajeev (0.7-2.0) mmol/L Calcium (8.4-10.2) mg/dL Magnesium (1.6-2.3) mg/dL Total Bilirubin (0.2-1.3) mg/dL AST (17-59) U/L ALT (21-72) U/L Alkaline Phosphatase (38-126) U/L Total Creatine Kinase (55-170) U/L CK-MB (CK-2) (0.0-2.4) ng/mL CK-MB (CK-2) Rel Index Troponin I (0.000-0.034) ng/mL Total Protein (6.3-8.2) g/dL Albumin (3.5-5.0) g/dL Stool Occult Blood (Negative) Blood Type O Positive Blood Type Recheck No Antibody Screen NEGATIVE Crossmatch See Detail Transfuse Plasma 03/02/17 Spec Expiration Date 03/05/2017 - 9 Critical Care Time Critical Care Time: Yes Total Critical Care Time: 40 Disposition Clinical Impression: Hematochezia, Hemorrhagic shock Disposition: ADMITTED IP TO THIS [facility] Condition: Serious Referrals: Blas Espinal MD [Primary Care Provider] - 1-2 days Decision to Admit Reason: Admit from EC Decision Date: 03/02/17 Decision Time: 12:05
--- NOTE | 2017-03-02 13:16 | P.CONS ---
History of Present Illness - Reason for Consult Consult date: 03/02/17 GI bleed Requesting physician: Cristobal Thomas - History of Present Illness 51-year-old gentleman patient of Dr. Espinal [facility] polycythemia recently evaluated in the ER on 02/22/2017 and transferred to [facility] secondary to right lower extremity peripheral occlusive disease and thrombosis. Status post right lower extremity femoral bypass at [facility] a week ago and presents with acute painless rectal bleeding. Patient was discharged from [facility] on Sunday. Constipated for a week. Yesterday he wasn't feeling well symptoms of fatigue weakness then followed by 2 gross bloody bowel movements yesterday afternoon. He was evaluated yesterday afternoon by his PCP and told he had low blood pressure but he did not mention to his PCP he had 2 bloody bowel movements. He continued to not feel well yesterday evening then passed several more gross bloody bowel movements. Systolic blood pressure 80s-100s. Heart rate 82-102. Afebrile. He started Coumadin, and Lovenox twice daily Sunday at [facility]. His last dose of Coumadin was Sunday and his last dose of Lovenox was yester morning. Admission INR 4.6. Hemoglobin 12.4. BUN 41. Denies fever chills melena or gross hematochezia. CT abdomen and pelvis 02/22/2017 reported diverticulosis. No history of GI bleeding. No history of colonoscopy. No recent NSAIDs even though home medications include Aleve however patient states he has not taken it for a long time. He is scheduled to receive 2 units of blood and 2 units of FFP along with vitamin K. Review of Systems RConstitutional: Denies fever, chills, sweats, weight gain, or loss. HEENT: Negative for migraines, blurred vision or loss, earaches, drainage, tinnitus, oral mucosal lesions, dysphagia, or odynophagia. Cardiac: Negative for chest pain, arrhythmias, or palpitation. Respiratory: Negative for shortness of breath, hemoptysis, cough, or sputum production. Gastrointestinal: See HPI for pertinent findings. Genitourinary: Negative for hematuria, urgency, frequency, polyuria, dysuria, or penile discharge. Musculoskeletal: Negative for muscle aches, swelling, arthritis, and arthralgias. Neurologic: Negative for stroke or TIA. Endocrine: Negative for thyroid problems. Skin: Negative for rash or itching. Psychiatric: Negative history for depression and anxietye All systems: negative (See HPI) Past Medical History Past Medical History: Asthma Additional Past Medical History / Comment(s): dvt etoh abuse History of Any Multi-Drug Resistant Organisms: None Reported Past Surgical History: Orthopedic Surgery Additional Past Surgical History / Comment(s): fem pop bipass Past Psychological History: Anxiety, Depression Smoking Status: Former smoker Past Alcohol Use History: None Reported, Heavy, Occasional Past Drug Use History: None Reported Medications and Allergies Home Medications Medication Instructions Recorded Confirmed Type ALPRAZolam [Xanax] 0.5 mg PO Q8H 02/22/17 03/02/17 History Albuterol Inhaler [Ventolin Hfa 1 - 2 puff INHALATION RT-QID PRN 02/22/17 History Inhaler] Citalopram Hydrobromide [CeleXA] 20 mg PO BID 02/22/17 03/02/17 History Fish Oil/Dha/Epa [Fish Oil 1,200 1 cap PO DAILY 02/22/17 03/02/17 History mg Fish Oil] Naproxen Sodium [Aleve] 220 mg PO BID PRN 02/22/17 03/02/17 History Aspirin 81 mg PO DAILY 03/02/17 03/02/17 History Atorvastatin [Lipitor] 40 mg PO DIRECTED 03/02/17 03/02/17 History Enoxaparin [Lovenox] 100 mg SQ Q12H 03/02/17 03/02/17 History Warfarin [Coumadin] 7.5 mg PO HS 03/02/17 03/02/17 History oxyCODONE HCL [Oxyir] 5 mg PO Q4HR PRN 03/02/17 03/02/17 History Allergies Allergy/AdvReac Type Severity Reaction Status Date / Time No Known Allergies Allergy Verified 03/02/17 11:31 Physical Exam Vitals: Vital Signs Temp Pulse Resp BP Pulse Ox 03/02/17 12:50 97.9 F 82 16 103/63 100 03/02/17 12:40 98.8 F 85 16 96/60 100 03/02/17 12:00 87 19 96/61 100 03/02/17 11:27 96 19 98/59 99 03/02/17 10:27 98.2 F 03/02/17 10:22 98.1 F 102 H 20 89/54 92 L Intake and Output 03/01/17 03/02/17 03/02/17 22:59 06:59 14:59 Intake Total 0 Balance 0 Intake: Blood Product 0 Rc Pheresis As-3 Unit 0 [id number] Other: Weight 92.986 kg Patient Weight 03/03/17 06:59 Weight 92.986 kg General appearance: The patient is alert, appears tired. HET: Head is normocephalic and atraumatic. Pupils are equal and reactive. Oropharynx is clear without lesions. Neck: Supple without lymphadenopathy. Trachea midline. Heart: S1 S2. Regular rate and rhythm. Lungs: No crackles or wheezes are heard. Abdomen: Soft, nontender, nondistended with bowel sounds. No peritoneal signs. No palpable organomegaly or masses. Extremities: Right groin incision with danna without erythema or drainage. Normal skin color and turgor. No cyanosis, rash, ulceration, clubbing, or edema. Radial and pedal pulses are 2/4 bilaterally. Neurological: No focal deficits. Strength and sensation are grossly intact. Rectal: Gross burgundy colored blood. Results CBC & Chem 7: 03/02/17 11:06 03/02/17 11:06 Labs: Abnormal Lab Results - Last 24 Hours (Table) 03/02/17 03/02/17 03/02/17 Range/Units 11:06 11:06 11:06 RBC 3.92 L (4.30-5.90) m/uL Hgb 12.4 L D (13.0-17.5) gm/dL Hct 38.2 L (39.0-53.0) % PT (9.0-12.0) sec INR (<1.2) APTT (22.0-30.0) sec Sodium 134 L (137-145) mmol/L BUN 41 H (9-20) mg/dL Total Creatine Kinase 31 L (55-170) U/L Total Protein 5.5 L (6.3-8.2) g/dL Albumin 3.0 L (3.5-5.0) g/dL Crossmatch 03/02/17 03/02/17 Range/Units 11:06 11:06 RBC (4.30-5.90) m/uL Hgb (13.0-17.5) gm/dL Hct (39.0-53.0) % PT 45.6 H (9.0-12.0) sec INR 4.6 H (<1.2) APTT 32.5 H (22.0-30.0) sec Sodium (137-145) mmol/L BUN (9-20) mg/dL Total Creatine Kinase (55-170) U/L Total Protein (6.3-8.2) g/dL Albumin (3.5-5.0) g/dL Crossmatch See Detail Assessment and Plan (1) GI bleed Narrative/Plan: Symptomatic anemia component of acute blood loss. Suspect colonic diverticular bleed based on CT findings from 02/22/2017 exacerbated by warfarin-induced coagulopathy and Lovenox. Status: Acute (2) Warfarin-induced coagulopathy Status: Acute (3) Hematochezia Status: Acute (4) Femoral artery occlusion Status: Acute (5) Polycythemia Status: Acute Plan: 1. Blood transfusion. FFP. Vitamin K. Hold anticoagulation. 2. Nothing by mouth. 3. Recommend general surgical consultation. 4. Inpatient colonoscopy discussed but will be contingent on clinical course. 5. Tagged RBC scan if bleeding accelerates and does not improve with reversal agents. 6. CBC every 6 hours. Thank you for this kind referral and the opportunity to participate in the care of your patient. This consultation was discussed with Dr. Verdin. The impression and plan of care have been directed as dictated.
--- NOTE | 2017-03-02 13:19 | XR ---
EXAMINATION TYPE: XR chest 1V portable DATE OF EXAM: 03/02/2017 HISTORY: Shortness of breath. COMPARISON: February 22, 2017 TECHNIQUE: Single view of the chest is submitted. FINDINGS: Right-sided central venous line with its distal tip overlying the SVC. No evidence for pneumothorax. There is no evidence for focal infiltrate. The heart is stable. Hilar and mediastinal structures are within normal limits. Degenerative changes are seen of the dorsal spine. Chronic appearing right rib deformity. IMPRESSION: 1. Chronic changes without evidence for acute pulmonary disease.
--- NOTE | 2017-03-02 13:51 | P.CNPUL ---
History of Present Illness Consult date: 03/02/17 Reason for consult: other Chief complaint: GI bleed, anemia History of present illness: Consult dated 03/02/2017 This is a 51-year-old male who has a history of underlying asthma peripheral vascular occlusive disease and was recently started on both Coumadin and Lovenox following a surgery done at [facility]. The patient apparently presented here late last week with a femoral occlusion. Was transferred to [facility]. The patient apparently had a fem-pop bypass and the patient was put on Lovenox to bridge him with anticoagulation with Coumadin. Apparently he started having a bowel movement some last night which had dark initially and then became more bloody. He apparently was found be very anemic in the emergency room today. About 6 days at [facility]. This name of surgeon is not known. The patient was placed on Lovenox and Coumadin when he was discharged there. The patient has received nor is quite received 2 units of PRBCs and 2 units of fresh frozen plasma. The patient apparently is feeling very weak and fatigued. Does have a history of underlying asthma. Takes an albuterol inhaler for that. Also uses Xanax for anxiety. Also takes Celexa fish oil and Aleve. Also apparently on aspirin Lipitor the Lovenox and warfarin and oxycodone. ALLERGIES are denied. Medical history is positive for a previous history of a DVT and asthma. Also history of alcohol abuse. Surgical history includes the recent fem-pop bypass. Social history is positive for previous tobacco use. Has a previous history of heavy alcohol use. No illicit drug use. The patient will be made moved to the ICU. Blood has been started as well as fresh frozen plasma. He received vitamin K as well. Review of Systems 12 point review of system is positive for weakness and bright red bleeding per rectum. Past Medical History Past Medical History: Asthma Additional Past Medical History / Comment(s): dvt etoh abuse History of Any Multi-Drug Resistant Organisms: None Reported Past Surgical History: Orthopedic Surgery Additional Past Surgical History / Comment(s): fem pop bipass Past Psychological History: Anxiety, Depression Smoking Status: Former smoker Past Alcohol Use History: None Reported, Heavy, Occasional Past Drug Use History: None Reported Medications and Allergies Home Medications Medication Instructions Recorded Confirmed Type ALPRAZolam [Xanax] 0.5 mg PO Q8H 02/22/17 03/02/17 History Albuterol Inhaler [Ventolin Hfa 1 - 2 puff INHALATION RT-QID PRN 02/22/17 History Inhaler] Citalopram Hydrobromide [CeleXA] 20 mg PO BID 02/22/17 03/02/17 History Fish Oil/Dha/Epa [Fish Oil 1,200 1 cap PO DAILY 02/22/17 03/02/17 History mg Fish Oil] Naproxen Sodium [Aleve] 220 mg PO BID PRN 02/22/17 03/02/17 History Aspirin 81 mg PO DAILY 03/02/17 03/02/17 History Atorvastatin [Lipitor] 40 mg PO DIRECTED 03/02/17 03/02/17 History Enoxaparin [Lovenox] 100 mg SQ Q12H 03/02/17 03/02/17 History Warfarin [Coumadin] 7.5 mg PO HS 03/02/17 03/02/17 History oxyCODONE HCL [Oxyir] 5 mg PO Q4HR PRN 03/02/17 03/02/17 History Allergies Allergy/AdvReac Type Severity Reaction Status Date / Time No Known Allergies Allergy Verified 03/02/17 11:31 Physical Exam Osteopathic Statement: *. No significant issues noted on an osteopathic structural exam other than those noted in the History and Physical/Consult. Vitals: Vital Signs Temp Pulse Resp BP Pulse Ox 03/02/17 13:44 99.0 F 81 18 104/64 03/02/17 13:38 99.0 F 88 18 104/64 03/02/17 13:20 99.0 F 83 18 94/61 03/02/17 13:00 88 20 92/53 100 03/02/17 12:50 97.9 F 82 16 103/63 100 03/02/17 12:40 98.8 F 85 16 96/60 100 03/02/17 12:00 87 19 96/61 100 03/02/17 11:27 96 19 98/59 99 03/02/17 10:27 98.2 F 03/02/17 10:22 98.1 F 102 H 20 89/54 92 L Intake and Output 03/01/17 03/02/17 03/02/17 22:59 06:59 14:59 Intake Total 0 Balance 0 Intake: Blood Product 0 Ffp 24 Cpda Unit 0 [id number] Rc Pheresis As-3 Unit 0 [id number] Other: Weight 92.986 kg Patient Weight 03/03/17 06:59 Weight 92.986 kg No acute distress, the patient does look pale. Does look fatigued. HEENT examination is grossly unremarkable. Mucous membranes are bit dry. Neck supple. Full range of motion. Cardiovascular examination reveals regular rhythm rate. S1-S2 normal. Lungs reveal clear breath sounds. No wheezes or rhonchi. Abdomen soft. Bowel sounds are noted. Patient not really having much in way of abdominal pain. Extremities are intact. Skin without rash. Results - Laboratory Findings CBC and BMP: 03/02/17 11:06 03/02/17 11:06 PT/INR, D-dimer PT 45.6 sec (9.0-12.0) H 03/02/17 11:06 INR 4.6 (<1.2) H 03/02/17 11:06 Abnormal lab findings: Abnormal Labs 03/02/17 03/02/17 03/02/17 11:06 11:06 11:06 RBC 3.92 L Hgb 12.4 L D Hct 38.2 L PT INR APTT Sodium 134 L BUN 41 H Total Creatine Kinase 31 L Total Protein 5.5 L Albumin 3.0 L Crossmatch 03/02/17 03/02/17 11:06 11:06 RBC Hgb Hct PT 45.6 H INR 4.6 H APTT 32.5 H Sodium BUN Total Creatine Kinase Total Protein Albumin Crossmatch See Detail Assessment and Plan (1) Asthma Status: Acute (2) GI bleed Status: Acute (3) Hematochezia Status: Acute (4) Warfarin-induced coagulopathy Status: Acute (5) Femoral artery occlusion Status: Acute Plan: Plan dated 03/02/2017 The patient can be transferred up to the ICU. He is to receive fresh frozen plasma PRBCs and vitamin K. The patient will be seen by GI. Additional recommendations suggestions forthcoming. The patient is hemodynamically stable currently. His respiratory status seems stable. Additional recommendations suggestions are forthcoming. We'll check hemoglobin about every 6 hours. We' ll watch him closely for any signs of deterioration. Time with Patient: Greater than 30
[2017-03-02 14:38] LABS: Glucose,Whole Blood 86 mg/dL (75-99)
[2017-03-02 18:56] LABS: Basophils % (A) 0 %; CH 32.5; CHCM 33.8; Eosinophils # (A) 0.1 k/uL (0-0.7); Eosinophils % (A) 2 %; HCT 28.3 % (39.0-53.0); HDW 2.39; Luc # (Auto) 0.12; Luc % (Auto) 2; Lymphocytes # (A) 1.7 k/uL (1.0-4.8); Lymphocytes % (A) 30 %; MCH 31.3 pg (25.0-35.0); MCHC 32.5 g/dL (31.0-37.0); MCV 96.4 fL (80.0-100.0); Monocytes # (A) 0.4 k/uL (0-1.0); Monocytes % (A) 7 %; Neutrophils # (A) 3.4 k/uL (1.3-7.7); Neutrophils % (A) 59 %; RBC 2.94 m/uL (4.30-5.90); RDW 14.1 % (11.5-15.5); WBC 5.7 k/uL (3.8-10.6); WBC (Perox) 5.63
[2017-03-02 18:59] LABS: HGB 9.2 gm/dL (13.0-17.5)
--- NOTE | 2017-03-02 19:03 | NM ---
EXAMINATION TYPE: NM GI bleeding DATE OF EXAM: 03/02/2017 HISTORY: COMPARISON: NONE Following administration of 3 ml PYP 30.0 mCi Tc 99m Sodium Pertechnete. Immediate images post inject ion. FINDINGS: There is some tracer accumulation in the left upper quadrant in the anticipated region of the distal transverse colon. There appears to be progressive increase tracer accumulation in the descending colo n. IMPRESSION: The exam appears to show active bleeding involving the distal transverse colon
[2017-03-02] MEDS: SODIUM CHLORIDE 0.9% 1,000 ML IV SCH (20:00)
[2017-03-02] MEDS ORDERED: ATORVASTATIN 40 MG TAB PO SCH (20:45)
[2017-03-02] MEDS ORDERED: ALPRAZolam 0.5 MG TAB PO SCH (20:45)
[2017-03-02] MEDS: CITALOPRAM HYDROBROMIDE 20 MG TAB PO SCH (21:09)
[2017-03-02] MEDS: PANTOPRAZOLE 40 MG/10 ML VIAL IV SCH (21:09)
[2017-03-03 00:12] LABS: CH 32.3; CHCM 34.2; HCT 26.5 % (39.0-53.0); HDW 2.42; HGB 9.1 gm/dL (13.0-17.5); MCH 32.8 pg (25.0-35.0); MCHC 34.5 g/dL (31.0-37.0); MCV 94.8 fL (80.0-100.0); Mean Platelet Volume 8.1; RBC 2.79 m/uL (4.30-5.90); RDW 13.5 % (11.5-15.5); WBC 5.8 k/uL (3.8-10.6)
[2017-03-03] MEDS: ALPRAZolam 0.5 MG TAB PO PRN ×3 (02:12→20:59)
[2017-03-03 06:27] LABS: Basophils % (A) 1 %; CH 32.4; Eosinophils # (A) 0.1 k/uL (0-0.7); Eosinophils % (A) 3 %; HCT 25.6 % (39.0-53.0); HGB 8.4 gm/dL (13.0-17.5); Luc % (Auto) 2; Lymphocytes # (A) 1.3 k/uL (1.0-4.8); Lymphocytes % (A) 27 %; MCH 31.5 pg (25.0-35.0); MCHC 32.9 g/dL (31.0-37.0); MCV 95.8 fL (80.0-100.0); Mean Platelet Volume 8.1; Monocytes # (A) 0.3 k/uL (0-1.0); Monocytes % (A) 7 %; Neutrophils % (A) 61 %; RBC 2.67 m/uL (4.30-5.90); RDW 13.5 % (11.5-15.5); WBC 4.9 k/uL (3.8-10.6); WBC (Perox) 4.81
[2017-03-03 06:45] LABS: INR 1.1 (<1.2); Prothrombin Time 10.8 sec (9.0-12.0)
[2017-03-03 07:00] LABS: ALT 55 U/L (21-72); AST 57 U/L (17-59); Alkaline Phosphatase 40 U/L (38-126); Anion Gap 2 mmol/L; Blood Urea Nitrogen 24 mg/dL (9-20); Calcium 7.8 mg/dL (8.4-10.2); Carbon Dioxide 23 mmol/L (22-30); Chloride 108 mmol/L (98-107); Glucose 85 mg/dL (74-99); Magnesium 1.6 mg/dL (1.6-2.3); Non-African American GFR(MDRD) >60 (>60 ml/min/1.73 sqM); Phosphorous 3.3 mg/dL (2.5-4.5); Potassium 3.7 mmol/L (3.5-5.1); Sodium 133 mmol/L (137-145); Total Bilirubin 0.8 mg/dL (0.2-1.3); Total Protein 4.1 g/dL (6.3-8.2)
[2017-03-03] MEDS: CITALOPRAM HYDROBROMIDE 20 MG TAB PO SCH ×2 (09:10→20:59)
[2017-03-03] MEDS: MAGNESIUM SULFATE-D5W PMX 1 GM in DEXTROSE/WATER 1 100ML.BAG IVPB SCH ×2 (09:10→13:03)
[2017-03-03] MEDS: SODIUM CHLORIDE 0.9% 1,000 ML IV SCH ×3 (09:10→17:20)
[2017-03-03] MEDS: POTASSIUM CHLORIDE 10 MEQ in WATER FOR INJECTION 1 100ML.BAG IVPB SCH ×2 (09:10→13:04)
[2017-03-03] MEDS: PANTOPRAZOLE 40 MG/10 ML VIAL IV SCH ×2 (09:11→21:00)
--- NOTE | 2017-03-03 10:40 | P.PN ---
Subjective This is a 51-year-old male who has a history of underlying asthma peripheral vascular occlusive disease and was recently started on both Coumadin and Lovenox following a surgery done at [facility]. The patient apparently presented here late last week with a femoral occlusion. Was transferred to [facility]. The patient apparently had a fem-pop bypass and the patient was put on Lovenox to bridge him with anticoagulation with Coumadin. Apparently he started having a bowel movement some last night which had dark initially and then became more bloody. He apparently was found be very anemic in the emergency room today. About 6 days at [facility]. This name of surgeon is not known. The patient was placed on Lovenox and Coumadin when he was discharged there. The patient has received nor is quite received 2 units of PRBCs and 2 units of fresh frozen plasma. The patient apparently is feeling very weak and fatigued. Does have a history of underlying asthma. Takes an albuterol inhaler for that. Also uses Xanax for anxiety. Also takes Celexa fish oil and Aleve. Also apparently on aspirin Lipitor the Lovenox and warfarin and oxycodone. ALLERGIES are denied. Medical history is positive for a previous history of a DVT and asthma. Also history of alcohol abuse. Surgical history includes the recent fem-pop bypass. Social history is positive for previous tobacco use. Has a previous history of heavy alcohol use. No illicit drug use. The patient will be made moved to the ICU. Blood has been started as well as fresh frozen plasma. He received vitamin K as well. The patient is seen again today 03/03/2017 in follow-up in the intensive care unit. He is awake and alert in no acute distress. He is feeling quite a bit better today as compared to yesterday. Still some weakness and fatigue. He denies any chest pain. No shortness of breath. Dizziness or lightheadedness. 3 black tarry stools last evening. None thus far this morning. His hemoglobin is currently 8.4. He is status post packed red blood cells and 2 units of fresh frozen plasma. His INR is 1.1. Take red blood cell study revealed active bleeding involving the distal transverse colon. The plan is for colonoscopy in the a.m. Objective - Vital Signs Vital signs: Vital Signs Temp 98.2 F 03/03/17 09:00 Pulse 68 03/03/17 10:00 Resp 24 03/03/17 10:00 BP 96/59 03/03/17 10:00 Pulse Ox 98 03/03/17 10:00 Intake & Output 03/02/17 03/03/17 03/03/17 18:59 06:59 18:59 Intake Total 1343 1200 400 Output Total 300 1800 200 Balance 1043 -600 200 Weight 92.986 kg 86.7 kg Intake: IV 300 1200 400 Sodium Chloride 0.9% 1, 300 1200 400 000 ml @ 100 mls/hr IV . Q10H [facility] Rx#:[id number] Blood Product 1043 Ffp 24 Cpda Unit 217 [id number] Ffp 24 Cpda Unit 206 [id number] Rc Pheresis As-3 Unit 310 [id number] Rc Pheresis As-3 Unit 310 [id number] Output: Urine 300 1800 200 Other: Voiding Method Urinal Urinal # Bowel Movements 0 1 0 - Exam GENERAL EXAM: Alert, active, comfortable in no apparent distress. HEAD: Normocephalic. EYES: Normal reaction of pupils, equal size. NOSE: Clear with pink turbinates. THROAT: No erythema or exudates. NECK: No masses, no JVD. CHEST: No chest wall deformity. LUNGS: Equal air entry with no crackles, wheeze, rhonchi or dullness. CVS: S1 and S2 normal with no audible murmurs, regular rhythm. ABDOMEN: No hepatosplenomegaly, normal bowel sounds, no guarding or rigidity. SPINE: No scoliosis or deformity SKIN: No rashes CENTRAL NERVOUS SYSTEM: No focal deficits, tone is normal in all 4 extremities. - Labs CBC & Chem 7: 03/03/17 06:00 03/03/17 06:00 Labs: Abnormal Lab Results - Last 24 Hours (Table) 03/02/17 03/02/17 03/02/17 Range/Units 11:06 11:06 11:06 RBC 3.92 L (4.30-5.90) m/uL Hgb 12.4 L D (13.0-17.5) gm/dL Hct 38.2 L (39.0-53.0) % PT (9.0-12.0) sec INR (<1.2) APTT (22.0-30.0) sec Sodium 134 L (137-145) mmol/L Chloride (98-107) mmol/L BUN 41 H (9-20) mg/dL Calcium (8.4-10.2) mg/dL Total Creatine Kinase 31 L (55-170) U/L Total Protein 5.5 L (6.3-8.2) g/dL Albumin 3.0 L (3.5-5.0) g/dL Crossmatch 03/02/17 03/02/17 03/02/17 Range/Units 11:06 11:06 18:45 RBC 2.94 L (4.30-5.90) m/uL Hgb 9.2 L D (13.0-17.5) gm/dL Hct 28.3 L (39.0-53.0) % PT 45.6 H (9.0-12.0) sec INR 4.6 H (<1.2) APTT 32.5 H (22.0-30.0) sec Sodium (137-145) mmol/L Chloride (98-107) mmol/L BUN (9-20) mg/dL Calcium (8.4-10.2) mg/dL Total Creatine Kinase (55-170) U/L Total Protein (6.3-8.2) g/dL Albumin (3.5-5.0) g/dL Crossmatch See Detail 03/02/17 03/03/17 03/03/17 Range/Units 23:50 06:00 06:00 RBC 2.79 L 2.67 L (4.30-5.90) m/uL Hgb 9.1 L 8.4 L (13.0-17.5) gm/dL Hct 26.5 L 25.6 L (39.0-53.0) % PT (9.0-12.0) sec INR (<1.2) APTT (22.0-30.0) sec Sodium 133 L (137-145) mmol/L Chloride 108 H (98-107) mmol/L BUN 24 H (9-20) mg/dL Calcium 7.8 L (8.4-10.2) mg/dL Total Creatine Kinase (55-170) U/L Total Protein 4.1 L (6.3-8.2) g/dL Albumin 2.1 L (3.5-5.0) g/dL Crossmatch Assessment and Plan Plan: Pression: #1 Acute gastrointestinal bleeding with positive tagged RBC revealing active bleeding involving the distal transverse colon. #2 Supratherapeutic coagulopathy secondary to warfarin and Lovenox, recovered. Current INR 1.1. #3 Recent femoral-popliteal bypass with stent placement. #4 History of chronic tobacco dependence. #5 History of heavy alcohol use. #6 History of anxiety/depression. Plan: The patient was seen and evaluated by Dr. Waters. He is currently stable from the critical care standpoint. He could be transferred out to the regular medical floor later this afternoon. Continue to monitor his hemoglobin. The plan is for possible colonoscopy in the a.m. We'll continue to follow.
[2017-03-03] MEDS ORDERED: POTASSIUM CHLORIDE 10 MEQ, LIDOCAINE 2% INJ 10 MG in SODIUM CHLORIDE 0.9% 100 ML IVPB SCH (14:00)
--- NOTE | 2017-03-03 14:32 | P.HPIM ---
History of Present Illness H&P Date: 03/03/17 Chief Complaint: GI bleed History of presenting complaint: This is a 50-year-old patient I came to see twice yesterday when patient was out of the room, and for testing and saw this patient this morning. He follows with Dr. Espinal. Patient come to the ER on 02/22/2017 and transferred to [facility] for acute arterial occlusion. Patient did have a fem-pop bypass done patient was then discharged from there 3-4 days ago. Patient 2 days ago feeling weak and tired and presented with gross bloody bowel movements and is his family doctor within moved him right away to the hospital. Patient did receive 2 units of blood as patient was bleeding significantly had 4 bloody bowel movements. Patient also Coumadin with INR of 4.6 did receive vitamin K and fresh frozen plasma. Patient did have a tagged WBC scan that showed bleeding in the distal transverse colon. Patient does feel very tired and rundown. Seen by Dr. Anderson from GI. GEN.: Tired EYES: None HEENT: None NECK: None RESPIRATORY: Some shortness of breath CARDIOVASCULAR: None GASTROINTESTINAL: No abdominal pain GENITOURINARY: None MUSCULOSKELETAL: None LYMPHATICS: None HEMATOLOGICAL: As above PSYCHIATRY: Some anxiety and depression NEUROLOGICAL: None Past medical history: COPD, peripheral artery disease, right femoral-popliteal bypass at age of [age] at 02/22/2017, anxiety depression Past surgical history: Bilaterally arthroscopic surgery, right fem-pop bypass as above Home medications reviewed in the computer ALLERGIES: None Social history: Smokes a pack and a half a day for close to 30 years seasonal spoke about 2 weeks has averaged about 4-5 beers a day about 15 years loss to 3 weeks. Lives with his parents. 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 EYES: Pupils equal. Conjunctiva palel. HEENT: External appearance of nose and ears normal, oral cavity grossly normal. NECK: JVD not raised; masses not palpable. HEART: First and second heart sounds are normal; no edema. LUNGS: Respiratory rate normal; decreased breath sounds. ABDOMEN: Soft, nontender, liver spleen not palpable, no masses palpable. LYMPHATICS: No lymph nodes palpable in the axilla and neck. PSYCH: [Alert and oriented x3; mood and affect anxious appearing l. NEUROLOGICAL: Cranial nerves grossly intact; no facial asymmetry, power and sensation grossly intact. Investigations: Initial hemoglobin 12.4 then dropped down to 8.4 this morning. INR is 4.6 down to 1.1 potassium 4. 2 GI nuclear scan as above Assessment: -Acute severe GI bleed from the bleeding source being transverse colon as seen in the tagged RBC scan from patient being on Coumadin -Acute severe blood loss anemia from GI bleed requiring 2 units of blood and causing hypotension with no shock -COPD in a current smoker -Chronic nicotine dependence patient is smoker -Chronic alcohol dependence to recently -Peripheral arterial disease with recent fem-pop bypass -Chronic depression not otherwise specified in remission Plan: Gastroenterology/Dr. Michael Anderosn was consulted. Patient had more bloody stools. Hence surgery will be consulted. Patient begin a nicotine patch. H&H followed closely. Care was discussed with the patient. Past Medical History Past Medical History: COPD, Vascular Disorder Additional Past Medical History / Comment(s): PVD, DVT R leg-recent R femoral popliteal bypass at [facility] [place] 02/22/17, History of Any Multi-Drug Resistant Organisms: None Reported Past Surgical History: Orthopedic Surgery Additional Past Surgical History / Comment(s): R fem pop bypass 02/22/17 [facility] [place], bilateral knee arthroscopic surgeries. Past Anesthesia/Blood Transfusion Reactions: No Reported Reaction Additional Past Anesthesia/Blood Transfusion Reaction / Comment(s): Pt is currently receiving blood-no reaction at this time. Smoking Status: Former smoker - Past Family History Mother Family Medical History: Cancer, Hyperlipidemia Additional Family Medical History / Comment(s): Mother had skin cancer. She is living. Father Family Medical History: Hyperlipidemia, Hypertension Additional Family Medical History / Comment(s): Father has heart condition. Medications and Allergies Home Medications Medication Instructions Recorded Confirmed Type ALPRAZolam [Xanax] 0.5 mg PO Q8H 02/22/17 03/02/17 History Albuterol Inhaler [Ventolin Hfa 1 - 2 puff INHALATION RT-QID PRN 02/22/17 History Inhaler] Citalopram Hydrobromide [CeleXA] 20 mg PO BID 02/22/17 03/02/17 History Fish Oil/Dha/Epa [Fish Oil 1,200 1 cap PO DAILY 02/22/17 03/02/17 History mg Fish Oil] Naproxen Sodium [Aleve] 220 mg PO BID PRN 02/22/17 03/02/17 History Aspirin 81 mg PO DAILY 03/02/17 03/02/17 History Atorvastatin [Lipitor] 40 mg PO DIRECTED 03/02/17 03/02/17 History Enoxaparin [Lovenox] 100 mg SQ Q12H 03/02/17 03/02/17 History Warfarin [Coumadin] 7.5 mg PO HS 03/02/17 03/02/17 History oxyCODONE HCL [Oxyir] 5 mg PO Q4HR PRN 03/02/17 03/02/17 History Allergies Allergy/AdvReac Type Severity Reaction Status Date / Time No Known Allergies Allergy Verified 03/02/17 11:31 Results CBC & Chem 7: 03/03/17 06:00 03/03/17 06:00
[2017-03-03] MEDS ORDERED: PEG 3350-NA SULF,BICARB,CL/KCL 4,000 ML BOTTLE PO ONE (17:00)
--- NOTE | 2017-03-03 20:22 | PN ---
DATE OF SERVICE: 03/03/17 The patient is a 51 -year-old pleasant white male admitted to the hospital with acute GI bleed. He presented with multiple episodes of maroon colored stool yesterday and drooped his hemoglobin from 12 to 8.4. He received two units of blood in the emergency room yesterday. The patient was just discharged home from [facility] after having fem-fem bypass surgery five days ago. He was discharged home on Coumadin as well as Lovenox. Currently on hold and the coagulopathy has been reversed with Vitamin K and fresh frozen plasma yesterday. He was admitted to the Intensive Care Unit. He had at least three bloody bowel movements through the night but presently tapering off. He denies any abdominal pain. He did have a tagged RBC scan that showed active bleeding in the distal transverse colon that showed possible active bleeding in the distal transverse colon. This morning, the patient states that he is feeling better. No abdominal pain. No nausea or vomiting. No bloody bowel movements in the last six hours. Complains of some dizziness. On physical examination, he appears comfortable in no apparent distress. Vital signs are stable. Blood pressure 87/52. Pulse rate 61. Temperature 97.5. HEENT: Unremarkable. Conjunctivae pink. Sclerae anicteric. Oral cavity no lesions. Neck no JVD or lymph node enlargement. Chest clear to auscultation. Heart regular rate and rhythm. Abdomen is soft. Nontender. Nondistended. Bowel sounds positive. No organomegaly. Extremities no pedal edema. Skin no rashes. Neurological: Alert and oriented times three. No focal deficits. Labs: Hemoglobin today is 8.4. WBC 4.9. Platelets are normal. INR 1.1. BUN 24, creatinine 0.7. IMPRESSION: 1. Acute gastrointestinal bleed, possibly lower in etiology. Tagged RBC scan done yesterday showed possible bleeding from the distal transverse colon. Presently hemodynamically stable. Last bleeding episode was about six to eight hours ago. 2. Coagulopathy secondary to Coumadin, currently reversed with FFP and Vitamin K. INR this morning is 1.1. 3. Status post fem-fem bypass surgery a week ago at [facility] presently stable. RECOMMENDATIONS: 1. Continue with a clear liquid diet. 2. We will proceed with EGD and colonoscopy tomorrow. I discussed with the patient the risks, benefits and complications and he is agreeable to it. In the meantime, we will continue to monitor CBC every six hours and transfuse as needed. Thank you for this consultation. ADORE
[2017-03-04 04:22] LABS: CH 32.4; CHCM 33.9; HCT 23.1 % (39.0-53.0); HDW 2.42; HGB 7.7 gm/dL (13.0-17.5); MCHC 33.3 g/dL (31.0-37.0); MCV 95.9 fL (80.0-100.0); Mean Platelet Volume 8.5; RBC 2.41 m/uL (4.30-5.90); RDW 13.3 % (11.5-15.5); WBC 4.5 k/uL (3.8-10.6)
[2017-03-04 04:39] LABS: Anion Gap 3 mmol/L; Blood Urea Nitrogen 12 mg/dL (9-20); Calcium 7.8 mg/dL (8.4-10.2); Carbon Dioxide 23 mmol/L (22-30); Chloride 108 mmol/L (98-107); Glucose 83 mg/dL (74-99); Magnesium 1.8 mg/dL (1.6-2.3); Non-African American GFR(MDRD) >60 (>60 ml/min/1.73 sqM); Phosphorous 3.2 mg/dL (2.5-4.5); Potassium 3.7 mmol/L (3.5-5.1); Sodium 134 mmol/L (137-145)
[2017-03-04] MEDS: SODIUM CHLORIDE 0.9% 1,000 ML IV SCH ×2 (04:47→19:39)
[2017-03-04] MEDS ORDERED: POTASSIUM CHLORIDE 20 MEQ in WATER FOR INJECTION 1 100ML.BAG IVPB ONE (06:39)
--- NOTE | 2017-03-04 09:28 | P.PN ---
Subjective Progress note dated 03/04/2017 This is a 51-year-old male who was up in the intensive care unit. The patient' s doing better. His apparently scheduled for a colonoscopy in the EGD today. He has no supplemental oxygen. He just receiving room air. His IV is 0.9 normal saline at 100 mL an hour he's received 2 units of PRBCs and 2 units of fresh frozen plasma. Also some vitamin K. He seems be doing relatively well. Not having any further bowel movements of any significance. The patient denies any complaints. No nausea vomiting. No diarrhea. No chest pain or chest discomfort. No dizziness.. The patient seems to be relatively stable. The plan is to move him to the general medical floor after his procedure as long as a don't find anything significant either on the EGD or colonoscopy. Objective - Vital Signs Vital signs: Vital Signs Temp 97.7 F 03/04/17 04:00 Pulse 56 L 03/04/17 07:00 Resp 13 03/04/17 07:00 BP 93/58 03/04/17 07:00 Pulse Ox 97 03/04/17 07:00 Intake & Output 03/03/17 03/04/17 03/04/17 18:59 06:59 18:59 Intake Total 1600 1450 100 Output Total 1700 1300 Balance -100 150 100 Weight 87.3 kg Intake: IV 1200 1200 100 Sodium Chloride 0.9% 1, 1200 1200 100 000 ml @ 100 mls/hr IV . Q10H [facility] Rx#:[id number] Intake, IV Titration 400 Amount Magnesium Sulfate-D5w Pmx 200 1 gm In Dextrose/Water 1 100ml.bag @ 100 mls/hr IVPB Q1H [facility] Rx#: [id number] Potassium Chloride 10 meq 100 In Water For Injection 1 100ml.bag @ 100 mls/hr IVPB Q1H [facility] Rx#: [id number] Potassium Chloride 10 meq 100 Lidocaine 2% Inj 10 mg In Sodium Chloride 0.9% 100 ml @ 100 mls/hr IVPB Q1HR [facility] Rx#:[id number] Oral 250 Output: Urine 1700 1300 Other: Voiding Method Urinal Urinal # Bowel Movements 0 - Exam No acute distress, oriented 3. HEENT examination is grossly unremarkable. Mucous membranes are moist. No oral lesions. Neck supple. Full range of motion. No adenopathy or thyromegaly. Heart and vascular examination reveals regular rhythm rate. S1-S2 normal. No S3-S4 or murmur. Lungs reveal clear breath sounds. No wheezes rhonchi or crackles. Breath sounds are equal bilaterally. Abdomen soft bowel sounds are heard. There is no tenderness on palpation. Extremities are intact. No cyanosis clubbing or edema. Skin without rash. Neurologic examination is nonfocal. - Labs CBC & Chem 7: 03/04/17 04:05 03/04/17 04:05 Labs: Abnormal Lab Results - Last 24 Hours (Table) 03/04/17 03/04/17 Range/Units 04:05 04:05 RBC 2.41 L (4.30-5.90) m/uL Hgb 7.7 L (13.0-17.5) gm/dL Hct 23.1 L (39.0-53.0) % Sodium 134 L (137-145) mmol/L Chloride 108 H (98-107) mmol/L Creatinine 0.60 L (0.66-1.25) mg/dL Calcium 7.8 L (8.4-10.2) mg/dL Assessment and Plan (1) Asthma Status: Acute (2) GI bleed Status: Acute (3) Hematochezia Status: Acute (4) Warfarin-induced coagulopathy Status: Acute (5) Femoral artery occlusion Status: Acute Plan: Plan dated 03/02/2017 The patient can be transferred up to the ICU. He is to receive fresh frozen plasma PRBCs and vitamin K. The patient will be seen by GI. Additional recommendations suggestions forthcoming. The patient is hemodynamically stable currently. His respiratory status seems stable. Additional recommendations suggestions are forthcoming. We'll check hemoglobin about every 6 hours. We' ll watch him closely for any signs of deterioration. Plan dated 03/04/2017 The patient's doing a better. Since she's been here he received 2 units of PRBCs in 2 units of fresh frozen plasma. He also receive vitamin K in the emergency room. This is because he was having a Coumadin induced colitis neuropathy. When he was discharged from [facility], he was sent home both on Lovenox as a bridge and Coumadin. The patient's hemoglobin of 7.7. Is not actively bleeding. He is apparently going to have an EGD and colonoscopy today. He May go straight to the general medical floor after the procedure. This depends with a fine. Labs x-rays a medications are all reviewed. Time with Patient: Less than 30
[2017-03-04] MEDS: PANTOPRAZOLE 40 MG/10 ML VIAL IV SCH ×2 (10:15→19:47)
[2017-03-04] MEDS: MAGNESIUM SULFATE-D5W PMX 1 GM in DEXTROSE/WATER 1 100ML.BAG IVPB SCH ×2 (10:15→12:35)
[2017-03-04] MEDS ORDERED: MIDAZOLAM 2 MG/2 ML VIAL ONE (10:58)
[2017-03-04] MEDS ORDERED: fentaNYL (PF) 50 MCG/ML 2 ML AMP ONE (10:58)
[2017-03-04] MEDS ORDERED: PROPOFOL 10 MG/ML 20 ML VIAL IV ONE (10:58)
[2017-03-04] MEDS ORDERED: SODIUM CHLORIDE 0.9% 1,000 ML IV ONE (11:03)
--- NOTE | 2017-03-04 11:38 | P.PCN ---
Date of Procedure: 03/04/17 Preoperative Diagnosis: Postoperative Diagnosis: Procedure(s) Performed: Brief history: Patient is a pleasant 51-year-old white male, admitted admitted to the hospital with acute GI bleed. Here multiple episodes of maroon-colored stools and dropped his hemoglobin from 12-7.5 g/dL despite giving units of blood transfusions while in the ER. He had coagulopathy secondary to Coumadin which has been reversed with vitamin K and fresh wasn't plasma last INR is 1.1. He did have a tagged RBC scan that showed possible bleeding in the stool transverse colon. scheduled for an elective upper endoscopy as well as colonoscopy as a part of evaluation of Procedure performed: Esophagogastroduodenoscopy with biopsy Colonoscopy with snare polypectomy Preoperative diagnosis: Acute GI bleeding Anesthesia: MAC Procedure: After informed consent was obtained from the patient was brought into the endoscopy unit and IV sedation was administered by anesthesia under continuous monitoring. Initially upper endoscopy was done. The Olympus GF 160 video endoscope was inserted inserted into the mouth and esophagus intubated without any difficulty and was gradually advanced into the stomach and duodenum and carefully examined. In the bulb of the duodenum there was a 1.5 cm superficial ulceration identified with no active bleeding and second part of the duodenum appeared normal. The scope was then withdrawn into the stomach adequately insufflated with air and upon careful examination the antrum had mild gastritis and biopsies were done from this area. The and body, cardia and fundus appeared normal. The scope was then withdrawn into the esophagus. Small hiatal hernia noted. The GE junction was located at 40 cm to the incisors. It appeared regular but there were 2 superficial erosions consistent with LA grade B reflux esophagitis. Rest of the esophagus appeared normal. Patient tolerated the procedure well. At this time the patient continued to remain sedation. Initial digital rectal examination was normal. Olympus CF 160 video colonoscope was then inserted into the rectum and gradually advanced to the cecum without any difficulty. Careful examination was performed as the scope was gradually being withdrawn. The prep was excellent. The cecum, ascending colon, transverse colon, descending colon, sigmoid colon and rectum appeared normal. In the sigmoid colon there was a 1 to polyp removed by snare polypectomy. Scattered left sided diverticulosis seen but no active bleeding. Retroflexion was performed in the rectum and no lesions were noted. Patient tolerated the procedure well. Impression: 1. Upper endoscopy revealed a 1.5 cm superficial duodenal bulbar ulcer with no active bleeding, small hiatal hernia and LA grade B reflux esophagitis 2. Colonoscopy revealed 1 small colon polyp status post polypectomy and scattered left sided diverticulosis Recommendations: Findings of this examination were discussed with the patient as well as his family. Recent episode of bleeding possibly was diverticular in nature but possibility of a duodenal ulcer causing bleeding cannot be excluded. Presently the bleeding has subsided. He will be continued on Protonix 40 mg daily and Diflucan advance as tolerated. Implants: Indications for Procedure: Operative Findings: Description of Procedure:
[2017-03-04] MEDS: CITALOPRAM HYDROBROMIDE 20 MG TAB PO SCH ×2 (12:35→19:47)
--- NOTE | 2017-03-04 13:01 | P.GSCN ---
History of Present Illness Consult date: 03/04/17 Reason for Consult: GI bleeding History of present illness: 51 years old male presented with GI bleed and Coumadin toxicity. Received 2Units PRBC Tagged RBC scan showed activity in transverse colon .Underwent EGD and colonoscopy by Dr. Verdin today and was found to have a duodenal ulcer without any active bleeding and colon polyp. He denies any abdominal pain. No nausea or vomiting. Status post vascular surgery at [facility] 1 week - stent placed and patient was on aspirin, lovenox and recently started on Coumadin. Unclear if this was a arterial or venous procedure Review of Systems Constitutional: Denies fever, weight loss or loss of appetite HEENT: No difficulty in vision or hearing. Denies dysphagia. Cardiovascular:Denies chest pain, palpitations, dizziness, shortness of breath. Respiratory: No cough or SOB Gastrointestinal: No recent change in bowel habits Integumentary: Genitourinary: No urinary incontinence, hematuria or dysuria Neurologic: No seizures, denies weakness in upper or lower extremities Musculoskeletal: Strength 5/5 Psychiatry: No history of depression, no suicidal ideation, no anxiety or psychosis Past Medical History Past Medical History: COPD, Vascular Disorder Additional Past Medical History / Comment(s): PVD, DVT R leg-recent R femoral popliteal bypass at [facility] 02/22/17, History of Any Multi-Drug Resistant Organisms: None Reported Past Surgical History: Orthopedic Surgery Additional Past Surgical History / Comment(s): R fem pop bypass 02/22/17 [facility], bilateral knee arthroscopic surgeries. Past Anesthesia/Blood Transfusion Reactions: No Reported Reaction Additional Past Anesthesia/Blood Transfusion Reaction / Comm: Pt is currently receiving blood-no reaction at this time. Smoking Status: Former smoker - Past Family History Mother Family Medical History: Cancer, Hyperlipidemia Additional Family Medical History / Comment(s): Mother had skin cancer. She is living. Father Family Medical History: Hyperlipidemia, Hypertension Additional Family Medical History / Comment(s): Father has heart condition. Medications and Allergies Home Medications Medication Instructions Recorded Confirmed Type ALPRAZolam [Xanax] 0.5 mg PO Q8H 02/22/17 03/02/17 History Albuterol Inhaler [Ventolin Hfa 1 - 2 puff INHALATION RT-QID PRN 02/22/17 History Inhaler] Citalopram Hydrobromide [CeleXA] 20 mg PO BID 02/22/17 03/02/17 History Fish Oil/Dha/Epa [Fish Oil 1,200 1 cap PO DAILY 02/22/17 03/02/17 History mg Fish Oil] Naproxen Sodium [Aleve] 220 mg PO BID PRN 02/22/17 03/02/17 History Aspirin 81 mg PO DAILY 03/02/17 03/02/17 History Atorvastatin [Lipitor] 40 mg PO DIRECTED 03/02/17 03/02/17 History Enoxaparin [Lovenox] 100 mg SQ Q12H 03/02/17 03/02/17 History Warfarin [Coumadin] 7.5 mg PO HS 03/02/17 03/02/17 History oxyCODONE HCL [Oxyir] 5 mg PO Q4HR PRN 03/02/17 03/02/17 History Allergies Allergy/AdvReac Type Severity Reaction Status Date / Time No Known Allergies Allergy Verified 03/02/17 11:31 Surgical - Exam Vital Signs Temp Pulse Resp BP Pulse Ox 98.1 F 102 H 20 89/54 92 L 03/02/17 10:22 03/02/17 10:22 03/02/17 10:22 03/02/17 10:22 03/02/17 10:22 General: Patient is alert and oriented to time, place and person and cooperative with exam. He is not in acute distress. HEENT: No pallor, no icterus Chest: Bilateral equal breath sounds present. No wheezes, no crackles. Cardiovascular: Regular rate and rhythm. Abdomen: Soft, nontender, nondistended. Integumentary: No active ulcers or discharge. Neurologic: Cranial nerves II-XII intact. Strength upper and lower extremities 5/5. No focal neurologic deficits. Gait is normal. Psychiatric: No anxiety or psychosis. Results - Labs 03/04/17 04:05 03/04/17 04:05 Abnormal Lab Results - Last 24 Hours (Table) 03/04/17 03/04/17 Range/Units 04:05 04:05 RBC 2.41 L (4.30-5.90) m/uL Hgb 7.7 L (13.0-17.5) gm/dL Hct 23.1 L (39.0-53.0) % Sodium 134 L (137-145) mmol/L Chloride 108 H (98-107) mmol/L Creatinine 0.60 L (0.66-1.25) mg/dL Calcium 7.8 L (8.4-10.2) mg/dL Diabetes panel 03/04/17 Range/Units 04:05 Sodium 134 L (137-145) mmol/L Potassium 3.7 (3.5-5.1) mmol/L Chloride 108 H (98-107) mmol/L Carbon Dioxide 23 (22-30) mmol/L BUN 12 (9-20) mg/dL Creatinine 0.60 L (0.66-1.25) mg/dL Glucose 83 (74-99) mg/dL Calcium 7.8 L (8.4-10.2) mg/dL Calcium panel 03/04/17 Range/Units 04:05 Calcium 7.8 L (8.4-10.2) mg/dL Phosphorus 3.2 (2.5-4.5) mg/dL Pituitary panel 03/04/17 Range/Units 04:05 Sodium 134 L (137-145) mmol/L Potassium 3.7 (3.5-5.1) mmol/L Chloride 108 H (98-107) mmol/L Carbon Dioxide 23 (22-30) mmol/L BUN 12 (9-20) mg/dL Creatinine 0.60 L (0.66-1.25) mg/dL Glucose 83 (74-99) mg/dL Calcium 7.8 L (8.4-10.2) mg/dL Adrenal panel 03/04/17 Range/Units 04:05 Sodium 134 L (137-145) mmol/L Potassium 3.7 (3.5-5.1) mmol/L Chloride 108 H (98-107) mmol/L Carbon Dioxide 23 (22-30) mmol/L BUN 12 (9-20) mg/dL Creatinine 0.60 L (0.66-1.25) mg/dL Glucose 83 (74-99) mg/dL Calcium 7.8 L (8.4-10.2) mg/dL Assessment and Plan (1) Asthma Status: Acute (2) GI bleed Status: Acute (3) Warfarin-induced coagulopathy Status: Acute Plan: 1. No active bleeding on upper and lower endoscopy. Duodenal ulcer noted. 2. Continue to monitor closely. 3. No indication for acute surgical intervention at this time. 4. Anticoagulation and antiplatelet management as per vascular surgery 5. Avoid NSAIDS
--- NOTE | 2017-03-04 17:35 | P.PN ---
Progress Note - Text Attending note. Date of service-03/04/2017 This patient was seen and examined by me . Discussed the patient with my nurse practitioner Ms. Franco. Admitted with GI bleed. Endoscopy results noted. Patient does state he was taking Aleve 250 mg a day for several months before his recent intervention. On examination: Abdomen-soft nontender Investigations: Hemoglobin 7.7 Assessment and plan: -Acute GI bleed possibly probably from peptic ulcer disease in a patient was taking Aleve until recently, also was on Coumadin and Lovenox and agree noted that patient was drinking significant alcohol for many years -Left-sided colonic diverticulosis could be a source of bleeding too Have requested records from [facility] to check exactly what procedure patient had. It does appear to meet this was a arterial intervention with a cold foot. Due to get the records from [facility] I will consult Dr. Coreas from vascular. As anticoagulation needs to be addressed. Patient been advanced to a regular diet per GI
--- NOTE | 2017-03-04 19:52 | P.PN ---
Progress Note - Text DATE OF SERVICE: 03/04/2017 PRESENTING COMPLAINT: GI bleed HISTORY OF PRESENT ILLNESS: 50-year-old patient who presented with 2 days of feeling weak and tired had gross bloody bowel movements at home, went to see his family doctor and told him about the bowel movements and was told to come to the ER. On arrival had 4 bloody bowel movements, hemoglobin dropped, received 2 units of blood. Patient was receiving Coumadin and INR was 4.6 on admission received vitamin K and fresh frozen plasma. GI was consulted, tagged red blood cell scan ordered and showed bleeding in the distal transverse colon. INTERVAL HISTORY: 03/04/2017: Patient seen and examined, patient lying in bed appears comfortable, GI took the patient for an EGD with biopsy and a colonoscopy with snare polypectomy. EGD revealed a 1.5 superficial duodenal bulbar ulcer with no active bleeding, small hiatal hernia and grade B reflux esophagitis. Colonoscopy revealed a small colon polyp status post polypectomy with some scattered left-sided diverticulosis. Postprocedure patient appears comfortable, diet advanced, no further episodes of bleeding, ambulatory within the room. REVIEW OF SYSTEMS: Done for constitutional ,cardiovascular, GI, pulmonary with relevant findings as above. CURRENT MEDICATIONS Xanax, Celexa, Protonix. PHYSICAL EXAM VITAL SIGNS: Temperature 98.2 pulse 65 respiratory rate 15 blood pressure 110/63 oxygen saturation 100% on room air. GENERAL APPEARANCE:. Lying in bed, appears comfortable EYES: Pupils equal. Conjunctiva normal. NECK: JVD not raised. Mass not palpable. RESPIRATORY: Respiratory effort normal. Lungs clear to auscultation. CARDIOVASCULAR: First and second sounds normal. No edema. ABDOMEN: Soft. Liver and spleen not palpable. No tenderness. No mass palpable. PSYCHIATRY: Alert and oriented x3. Mood and affect calm cooperative. INVESTIGATIONS: Hemoglobin 77, sodium 134, potassium 3.7, EGD with biopsy and colonoscopy: 1.5 cm superficial duodenal bulbar ulcer with no active bleeding, small hiatal hernia and grade B reflux esophagitis. Colonoscopy revealed a small colon polyp status post polypectomy with some scattered left-sided diverticulosis. ASSESSMENT: -Acute severe GI bleed likely from peptic ulcer disease in a patient who is taking Aleve until recently was on Coumadin and Lovenox with history of significant alcohol intake for many years -Left sided colonic diverticulosis -Acute severe blood loss anemia from GI bleed requiring 2 units of blood and causing hypotension with no shock -COPD in a current smoker -Chronic nicotine dependence patient is smoker -Chronic alcohol dependence to recently -Peripheral arterial disease with recent fem-pop bypass -Chronic depression not otherwise specified in remission PLAN: Continue patient on Protonix 40 mg daily and Diflucan diet can be advanced as he can tolerate. Have requested medical records from [facility] patient had a recent fem-pop bypass was on anticoagulation, need to restart anticoagulation, need to determine what was done at [facility] and anticoagulation is most appropriate. Plan of care discussed with the patient at the bedside he is in agreement. We'll continue to follow closely. FIELD UNDERWRITER statement: Patient was seen and examined by nurse practitioner Pauly Franco and all elements of the case discussed with attending Dr. Thomas
[2017-03-04] MEDS: ALPRAZolam 0.5 MG TAB PO PRN (20:59)
[2017-03-05] MEDS: SODIUM CHLORIDE 0.9% 1,000 ML IV SCH (02:10)
[2017-03-05 06:46] LABS: CH 32.5; CHCM 33.6; HCT 22.4 % (39.0-53.0); HDW 2.34; HGB 7.2 gm/dL (13.0-17.5); MCH 31.1 pg (25.0-35.0); MCV 97.2 fL (80.0-100.0); Mean Platelet Volume 8.6; RDW 13.3 % (11.5-15.5); WBC 4.5 k/uL (3.8-10.6)
[2017-03-05 06:58] LABS: Anion Gap 3 mmol/L; Blood Urea Nitrogen 6 mg/dL (9-20); Calcium 7.6 mg/dL (8.4-10.2); Carbon Dioxide 24 mmol/L (22-30); Chloride 109 mmol/L (98-107); Glucose 80 mg/dL (74-99); Magnesium 1.7 mg/dL (1.6-2.3); Non-African American GFR(MDRD) >60 (>60 ml/min/1.73 sqM); Phosphorous 3.5 mg/dL (2.5-4.5); Potassium 3.8 mmol/L (3.5-5.1); Sodium 136 mmol/L (137-145)
[2017-03-05] MEDS: CITALOPRAM HYDROBROMIDE 20 MG TAB PO SCH ×2 (07:59→20:55)
[2017-03-05] MEDS: PANTOPRAZOLE 40 MG/10 ML VIAL IV SCH ×2 (07:59→20:55)
[2017-03-05] MEDS: ALPRAZolam 0.5 MG TAB PO PRN ×2 (08:06→20:54)
[2017-03-05 10:10] LABS: CHCM 32.3; HCT 22.8 % (39.0-53.0); HDW 2.31; HGB 7.3 gm/dL (13.0-17.5); MCH 31.7 pg (25.0-35.0); MCHC 31.8 g/dL (31.0-37.0); MCV 99.5 fL (80.0-100.0); Mean Platelet Volume 8.2; RDW 13.1 % (11.5-15.5); WBC 4.1 k/uL (3.8-10.6)
--- NOTE | 2017-03-05 13:00 | P.PN ---
Subjective 51-year-old gentleman being seen on rounds this morning. Currently sitting up in bed taking a soft diet. Patient is being seen by the attending for a surgical eval in which there is no indication for an acute surgical intervention at this time. Patient is status post EGD and colonoscopy by Dr. Anderson done March 04 it showed a duodenal ulcer without any active bleeding and colon polyp. Patient currently is denying any abdominal pain. Reports no nausea vomiting. Patient is status post vascular procedure done at [facility] a week prior where stent was placed area patient presented to the emergency room with acute GI bleeding Coumadin toxicity did receive 2 units of packed red blood cells. being followed by medicine service Objective - Vital Signs Vital signs: Vital Signs Temp 98.7 F 03/05/17 07:00 Pulse 73 03/05/17 07:00 Resp 18 03/05/17 07:00 BP 103/60 03/05/17 07:00 Pulse Ox 97 03/05/17 07:00 Intake & Output 03/04/17 03/05/17 03/05/17 18:59 06:59 18:59 Intake Total 1200 550 Output Total 400 Balance 800 550 Intake: IV 1100 400 Sodium Chloride 0.9% 1, 800 400 000 ml @ 100 mls/hr IV . Q10H OLVIN Rx#:[id number] Intake, IV Titration 100 Amount Magnesium Sulfate-D5w Pmx 100 1 gm In Dextrose/Water 1 100ml.bag @ 100 mls/hr IVPB Q1H OLVIN Rx#: [id number] Oral 150 Output: Urine 400 Other: Voiding Method Urinal Urinal Urinal # Voids 1 1 # Bowel Movements 1 - Exam Physical exam 51-year-old male sitting up in bed taking a diet tolerating states no nausea vomiting denies abdominal pain when questioning pleasant cooperative oriented 3 Lungs essentially clear adequate air movement on room air Heart S1-S2 audible and regular denying chest pain Abdomen flat nontender bowel tones present states no stool Extremities danna to the right femoral area suture line well approximated no redness. No calf tenderness. No edema noted. - Labs CBC & Chem 7: 03/05/17 09:44 03/05/17 06:30 Labs: Abnormal Lab Results - Last 24 Hours (Table) 03/05/17 03/05/17 03/05/17 Range/Units 06:30 06:30 09:44 RBC 2.30 L 2.30 L (4.30-5.90) m/uL Hgb 7.2 L 7.3 L (13.0-17.5) gm/dL Hct 22.4 L 22.8 L (39.0-53.0) % Sodium 136 L (137-145) mmol/L Chloride 109 H (98-107) mmol/L BUN 6 L (9-20) mg/dL Calcium 7.6 L (8.4-10.2) mg/dL Assessment and Plan Plan: Impression Present on admission acute GI bleed with Coumadin toxicity Status post EGD and a colonoscopy showed duodenal ulcer without any active bleed and colon polyp A recent right leg femoral popliteal bypass a [facility] February Recent DVT right leg Plan No indication for an acute surgical intervention at this time Defer to medicine for further medical management Reinforce avoiding NSAIDS Continue to monitor closely Anticoagulation antiplatelet management per vascular surgery defer to Will sign off reevaluate if clinical issues arise that warrant a surgical eval The above impression and plan of care have been discussed and directed by signing physician. Aisha Miller nurse practitioner acting as scribe for signing physician.
--- NOTE | 2017-03-05 15:50 | P.PN ---
Subjective This is a 51-year-old male who has a history of underlying asthma peripheral vascular occlusive disease and was recently started on both Coumadin and Lovenox following a surgery done at [facility]. The patient apparently presented here late last week with a femoral occlusion. Was transferred to [facility]. The patient apparently had a fem-pop bypass and the patient was put on Lovenox to bridge him with anticoagulation with Coumadin. Apparently he started having a bowel movement some last night which had dark initially and then became more bloody. He apparently was found be very anemic in the emergency room today. About 6 days at [facility]. This name of surgeon is not known. The patient was placed on Lovenox and Coumadin when he was discharged there. The patient has received nor is quite received 2 units of PRBCs and 2 units of fresh frozen plasma. The patient apparently is feeling very weak and fatigued. Does have a history of underlying asthma. Takes an albuterol inhaler for that. Also uses Xanax for anxiety. Also takes Celexa fish oil and Aleve. Also apparently on aspirin Lipitor the Lovenox and warfarin and oxycodone. ALLERGIES are denied. Medical history is positive for a previous history of a DVT and asthma. Also history of alcohol abuse. Surgical history includes the recent fem-pop bypass. Social history is positive for previous tobacco use. Has a previous history of heavy alcohol use. No illicit drug use. The patient will be made moved to the ICU. Blood has been started as well as fresh frozen plasma. He received vitamin K as well. The patient is seen again today 03/03/2017 in follow-up in the intensive care unit. He is awake and alert in no acute distress. He is feeling quite a bit better today as compared to yesterday. Still some weakness and fatigue. He denies any chest pain. No shortness of breath. Dizziness or lightheadedness. 3 black tarry stools last evening. None thus far this morning. His hemoglobin is currently 8.4. He is status post packed red blood cells and 2 units of fresh frozen plasma. His INR is 1.1. Take red blood cell study revealed active bleeding involving the distal transverse colon. The plan is for colonoscopy in the a.m. On 03/05/2017 the patient is being seen in follow-up. The patient underwent endoscopy for GI bleeding and this included upper endoscopy and a colonoscopy. The upper endoscopy showed a 1.5 cm superficial duodenal ulcer that showed no evidence of any acute bleeding and there was small hiatal hernia and a grade he is esophagitis. The colonoscopy showed a 1 cm colonic polyp that was removed/ polypectomy was performed and there was scattered area of diverticulosis on the left. It was felt that the episodes of GI bleeding was most likely diverticular in nature but possibility of a duodenal ulcer causing bleeding cannot be completely excluded. The patient was started on Protonix 40 mg. For now, the patient's hemoglobin stable at 7.3. Patient is still off anticoagulation. The patient is receiving normal saline at the rate of 100 mL an hour. A surgical consultation was also obtained. No evidence of any bleeding for now and the patient is very much stable. Anticoagulation will be restarted today. Objective - Vital Signs Vital signs: Vital Signs Temp 98.7 F 03/05/17 07:00 Pulse 73 03/05/17 07:00 Resp 18 03/05/17 07:00 BP 103/60 03/05/17 07:00 Pulse Ox 97 03/05/17 07:00 Intake & Output 03/04/17 03/05/17 03/05/17 18:59 06:59 18:59 Intake Total 1200 550 Output Total 400 Balance 800 550 Intake: IV 1100 400 Sodium Chloride 0.9% 1, 800 400 000 ml @ 100 mls/hr IV . Q10H OLVIN Rx#:[id number] Intake, IV Titration 100 Amount Magnesium Sulfate-D5w Pmx 100 1 gm In Dextrose/Water 1 100ml.bag @ 100 mls/hr IVPB Q1H OLVIN Rx#: [id number] Oral 150 Output: Urine 400 Other: Voiding Method Urinal Urinal Urinal # Voids 1 1 # Bowel Movements 1 - Exam General: Patient is alert and oriented to time, place and person and cooperative with exam. He is not in acute distress. HEENT: No pallor, no icterus Chest: Bilateral equal breath sounds present. No wheezes, no crackles. Cardiovascular: Regular rate and rhythm. Abdomen: Soft, nontender, nondistended. Integumentary: No active ulcers or discharge. Neurologic: Cranial nerves II-XII intact. Strength upper and lower extremities 5/5. No focal neurologic deficits. Gait is normal. Psychiatric: No anxiety or psychosis. - Labs CBC & Chem 7: 03/05/17 09:44 03/05/17 06:30 Labs: Abnormal Lab Results - Last 24 Hours (Table) 03/05/17 03/05/17 03/05/17 Range/Units 06:30 06:30 09:44 RBC 2.30 L 2.30 L (4.30-5.90) m/uL Hgb 7.2 L 7.3 L (13.0-17.5) gm/dL Hct 22.4 L 22.8 L (39.0-53.0) % Sodium 136 L (137-145) mmol/L Chloride 109 H (98-107) mmol/L BUN 6 L (9-20) mg/dL Calcium 7.6 L (8.4-10.2) mg/dL Assessment and Plan Plan: Assessment #1 Acute gastrointestinal bleeding with positive tagged RBC revealing active bleeding involving the distal transverse colon. The EGD and colonoscopy was done. The patient has scattered diverticulosis which is thought to be the source of bleeding. The patient also had a 1.5 cm duodenal ulcer. #2 Supratherapeutic coagulopathy secondary to warfarin and Lovenox, recovered. The patient presented with Coumadin toxicity. This was a reversed and the patient is currently stable for now. Anti-coagulation has not been resumed yet. #3 Recent femoral-popliteal bypass with stent placement. The patient underwent a right lower extremity fem-pop bypass surgery previous stent placement. #4 History of chronic tobacco dependence. #5 History of heavy alcohol use. #6 History of anxiety/depression. Plan Kept on IV fluids to KVO. Monitor hemoglobin. Initiate Coumadin therapy today. Watch patient in the hospital for another 24 hours to make sure there is no evidence of any active bleeding. We'll continue to follow. He'll be bridged with Lovenox and Coumadin will be started with 7.5 mg tonight. Monitor PT/INR. Repeat hemoglobin in a.m. Continue to follow
--- NOTE | 2017-03-05 17:51 | P.PN ---
<Pauly Franco - Last Filed: 03/05/17 17:34> Progress Note - Text DATE OF SERVICE: 03/05/2017 PRESENTING COMPLAINT: GI bleed HISTORY OF PRESENT ILLNESS: 50-year-old patient who presented with 2 days of feeling weak and tired had gross bloody bowel movements at home, went to see his family doctor and told him about the bowel movements and was told to come to the ER. On arrival had 4 bloody bowel movements, hemoglobin dropped, received 2 units of blood. Patient was receiving Coumadin and INR was 4.6 on admission received vitamin K and fresh frozen plasma. GI was consulted, tagged red blood cell scan ordered and showed bleeding in the distal transverse colon. Patient is status post right femoral endarterectomy, right SFA and profunda embolectomy, right SFA stent, this procedure was done at [facility]. INTERVAL HISTORY: 03/05/2017: Patient seen in follow-up today, lying in bed appears frustrated. States he feels tired because he didn't sleep well and having difficulty with dietary. Otherwise patient feels good, tolerating his diet, states he is a bit of a fussy eater but eats when he can. No further episodes of rectal bleeding. Ambulating to and from the bathroom without difficulty. Last BM 03/04/2017. Discharge from [facility] received and will evaluate with vascular surgery for appropriate anticoagulation therapy. 03/04/2017: Patient seen and examined, patient lying in bed appears comfortable, GI took the patient for an EGD with biopsy and a colonoscopy with snare polypectomy. EGD revealed a 1.5 superficial duodenal bulbar ulcer with no active bleeding, small hiatal hernia and grade B reflux esophagitis. Colonoscopy revealed a small colon polyp status post polypectomy with some scattered left-sided diverticulosis. Postprocedure patient appears comfortable, diet advanced, no further episodes of bleeding, ambulatory within the room. REVIEW OF SYSTEMS: Done for constitutional ,cardiovascular, GI, pulmonary with relevant findings as above. CURRENT MEDICATIONS Xanax, Celexa, Protonix. PHYSICAL EXAM VITAL SIGNS: Temperature 98.2 pulse 65 respiratory rate 15 blood pressure 110/63 oxygen saturation 100% on room air. GENERAL APPEARANCE:. Lying in bed, appears anxious EYES: Pupils equal. Conjunctiva normal. NECK: JVD not raised. Mass not palpable. RESPIRATORY: Respiratory effort normal. Lungs clear to auscultation. CARDIOVASCULAR: First and second sounds normal. No edema. ABDOMEN: Soft. Liver and spleen not palpable. No tenderness. No mass palpable. PSYCHIATRY: Alert and oriented x3. Mood and affect calm anxious. INVESTIGATIONS: Hemoglobin 7.3, sodium 136, BUN 6, creatinine 0.69, ASSESSMENT: -Acute severe GI bleed likely from peptic ulcer disease in a patient taking Aleve until recently was on Coumadin and Lovenox with history of significant alcohol intake for many years -Peripheral arterial disease Status post right femoral endarterectomy, right SFA and profunda embolectomy, right SFA stent, performed at [facility] about 2 weeks ago requiring anticoagulation. -Left sided colonic diverticulosis, possible bleeding source -Acute severe blood loss anemia from GI bleed requiring 2 units of blood and causing hypotension with no shock -COPD in a current smoker -Chronic nicotine dependence patient is smoker -Chronic alcohol dependence to recently -Chronic depression not otherwise specified in remission PLAN: Continue patient on Protonix 40 mg daily and Diflucan. Likely Coumadin will be started with a 7.5 mg dose tonight with Lovenox as a bridge we'll monitor PT and INR closely. Plan of care discussed with the patient at the bedside he is in agreement. Discharge likely to occur in the next 24-48 hours. We'll continue to follow closely. MEDICAL AUDITOR statement: Patient was seen and examined by nurse practitioner Pauly Franco and all elements of the case discussed with attending Dr. Thomas <Cristobal Thomas - Last Filed: 03/06/17 18:07> Progress Note - Text Attending note. Date of service-03/05/2017 This patient was seen and examined by me . Discussed the patient with my nurse practitioner Ms. Franco. Usman GI bleed from peptic ulcer disease, patient was on Coumadin and Lovenox and was taking Aleve short time ago. No further bleeding. Records from [facility] showed patient had right femoral endarterectomy , right SFA and profunda thrombectomy embolectomy. On examination: Abdomen-soft nontender, sitting up. Did tolerate his diet Investigations: Hemoglobin 7.3 Assessment and plan: Acute GI bleed from peptic ulcer disease Recent right femoral endarterectomy, right SFA and profunda thrombectomy embolectomy. We'll await input from Dr. Coreas about anticoagulation
--- NOTE | 2017-03-05 18:20 | CONS ---
This is a 51 -year-old gentleman who has been admitted with GI bleed. This patient had a right ischemic foot. The patient had a right femoral endarterectomy, profundoplasty and SFA balloon stent placement 02/22. The patient had a scope and bleeding has been stopped. He was on Lovenox and Coumadin. The patient was seen today. His past medical history includes history of diabetes, history of COPD, history of severe peripheral vascular disease. On examination, the patient was seen in his room. Neck was supple. Chest is clear to auscultation. Abdomen soft. Brachial, radial pulses present. Femorals are palpable. The patient had incision in the right groin with danna. The patient had a Doppler signal on the right foot. Foot is warm. PLAN: The patient is going home. The patient wants to follow-up with me in the office. He will have one visit to [facility] for vascular evaluation. Then we will follow in my office. ADORE
[2017-03-06 08:01] LABS: CH 32.4; CHCM 32.8; HGB 7.5 gm/dL (13.0-17.5); MCHC 31.3 g/dL (31.0-37.0); MCV 99.3 fL (80.0-100.0); Mean Platelet Volume 8.1; RBC 2.42 m/uL (4.30-5.90); RDW 13.1 % (11.5-15.5); WBC 5.1 k/uL (3.8-10.6)
[2017-03-06 08:18] LABS: Anion Gap 3 mmol/L; Blood Urea Nitrogen 3 mg/dL (9-20); Carbon Dioxide 24 mmol/L (22-30); Chloride 110 mmol/L (98-107); Glucose 81 mg/dL (74-99); Magnesium 1.6 mg/dL (1.6-2.3); Non-African American GFR(MDRD) >60 (>60 ml/min/1.73 sqM); Phosphorous 3.7 mg/dL (2.5-4.5); Sodium 137 mmol/L (137-145)
[2017-03-06 08:30] LABS: Prothrombin Time 10.1 sec (9.0-12.0)
[2017-03-06] MEDS: CITALOPRAM HYDROBROMIDE 20 MG TAB PO SCH ×2 (09:00→21:11)
[2017-03-06] MEDS: SODIUM CHLORIDE 0.9% 1,000 ML IV SCH ×4 (09:00→17:20)
[2017-03-06] MEDS: PANTOPRAZOLE 40 MG/10 ML VIAL IV SCH (09:00)
--- NOTE | 2017-03-06 10:43 | P.PN ---
Subjective Principal diagnosis: GI bleed Admitted with acute GI bleed exacerbated by anticoagulation. Status post EGD colonoscopy with findings of diverticular disease and superficial nonbleeding duodenal ulcer. No active bleeding. Tolerating regular diet. Hemoglobin stable 7.5. Denies abdominal pain. Objective - Vital Signs Vital signs: Vital Signs Temp 98.6 F 03/06/17 07:00 Pulse 64 03/06/17 07:00 Resp 18 03/06/17 07:00 BP 120/64 03/06/17 07:00 Pulse Ox 95 03/06/17 07:00 Intake & Output 03/05/17 03/06/17 03/06/17 18:59 06:59 18:59 Intake Total 2638 Balance 2638 Intake: IV 800 Sodium Chloride 0.9% 1, 800 000 ml @ 100 mls/hr IV . Q10H [facility] Rx#:[id number] Oral 1838 Other: Voiding Method Urinal Urinal # Voids 1 1 - Exam General appearance: The patient is alert, oriented, in no acute distress. HET: Head is normocephalic and atraumatic. Pupils are equal and reactive. Oropharynx is clear without lesions. Neck: Supple without lymphadenopathy. Trachea midline. Heart: S1 S2. Regular rate and rhythm. Lungs: No crackles or wheezes are heard. Abdomen: Soft, nontender, nondistended with bowel sounds. No peritoneal signs. No palpable organomegaly or masses. Extremities: Right groin incision without erythema or drainage. Normal skin color and turgor. No cyanosis, rash, ulceration, clubbing, or edema. Radial and pedal pulses are 2/4 bilaterally. Neurological: No focal deficits. Strength and sensation are grossly intact. - Labs CBC & Chem 7: 03/06/17 07:37 03/06/17 07:37 Labs: Abnormal Lab Results - Last 24 Hours (Table) 03/06/17 03/06/17 Range/Units 07:37 07:37 RBC 2.42 L (4.30-5.90) m/uL Hgb 7.5 L (13.0-17.5) gm/dL Hct 24.0 L (39.0-53.0) % Chloride 110 H (98-107) mmol/L BUN 3 L (9-20) mg/dL Calcium 8.0 L (8.4-10.2) mg/dL Assessment and Plan (1) GI bleed Narrative/Plan: Neck diverticular bleed cannot exclude bleeding from duodenal superficial ulcer possible combination of both sources exacerbated by anticoagulation Status: Acute (2) Warfarin-induced coagulopathy Status: Acute (3) Hematochezia Status: Acute (4) Femoral artery occlusion Status: Acute (5) Polycythemia Status: Acute Plan: 1. Discharge per medicine. 2. We'll defer restarting anticoagulation to medicine/toy consultant service. 3. Follow up in GI office in 3 weeks. 4. Protonix 40 mg daily. Avoid constipation. Stool softeners daily. We'll sign off. Assessment and plan a care discussed with Dr. Goodson
--- NOTE | 2017-03-06 11:15 | P.PN ---
Subjective This is a 51-year-old male who has a history of underlying asthma peripheral vascular occlusive disease and was recently started on both Coumadin and Lovenox following a surgery done at [facility]. The patient apparently presented here late last week with a femoral occlusion. Was transferred to [facility]. The patient apparently had a fem-pop bypass and the patient was put on Lovenox to bridge him with anticoagulation with Coumadin. Apparently he started having a bowel movement some last night which had dark initially and then became more bloody. He apparently was found be very anemic in the emergency room today. About 6 days at [facility]. This name of surgeon is not known. The patient was placed on Lovenox and Coumadin when he was discharged there. The patient has received nor is quite received 2 units of PRBCs and 2 units of fresh frozen plasma. The patient apparently is feeling very weak and fatigued. Does have a history of underlying asthma. Takes an albuterol inhaler for that. Also uses Xanax for anxiety. Also takes Celexa fish oil and Aleve. Also apparently on aspirin Lipitor the Lovenox and warfarin and oxycodone. ALLERGIES are denied. Medical history is positive for a previous history of a DVT and asthma. Also history of alcohol abuse. Surgical history includes the recent fem-pop bypass. Social history is positive for previous tobacco use. Has a previous history of heavy alcohol use. No illicit drug use. The patient will be made moved to the ICU. Blood has been started as well as fresh frozen plasma. He received vitamin K as well. The patient is seen again today 03/03/2017 in follow-up in the intensive care unit. He is awake and alert in no acute distress. He is feeling quite a bit better today as compared to yesterday. Still some weakness and fatigue. He denies any chest pain. No shortness of breath. Dizziness or lightheadedness. 3 black tarry stools last evening. None thus far this morning. His hemoglobin is currently 8.4. He is status post packed red blood cells and 2 units of fresh frozen plasma. His INR is 1.1. Take red blood cell study revealed active bleeding involving the distal transverse colon. The plan is for colonoscopy in the a.m. On 03/05/2017 the patient is being seen in follow-up. The patient underwent endoscopy for GI bleeding and this included upper endoscopy and a colonoscopy. The upper endoscopy showed a 1.5 cm superficial duodenal ulcer that showed no evidence of any acute bleeding and there was small hiatal hernia and a grade he is esophagitis. The colonoscopy showed a 1 cm colonic polyp that was removed/ polypectomy was performed and there was scattered area of diverticulosis on the left. It was felt that the episodes of GI bleeding was most likely diverticular in nature but possibility of a duodenal ulcer causing bleeding cannot be completely excluded. The patient was started on Protonix 40 mg. For now, the patient's hemoglobin stable at 7.3. Patient is still off anticoagulation. The patient is receiving normal saline at the rate of 100 mL an hour. A surgical consultation was also obtained. No evidence of any bleeding for now and the patient is very much stable. Anticoagulation will be restarted today. The patient is seen again today 03/06/2017 in follow-up on the regular medical floor. He is awake and alert in no acute distress. His hemoglobin today is 7.5. He has not had any further bloody bowel movements. No noted blood in the urine. He is continued on Protonix. He denies any chest pain, no lightheadedness or dizziness. No shortness of breath. Continues to maintain good O2 saturations in the mid to upper 90s on room air. He has been hemodynamically stable. Objective - Vital Signs Vital signs: Vital Signs Temp 98.6 F 03/06/17 07:00 Pulse 64 03/06/17 07:00 Resp 18 03/06/17 07:00 BP 120/64 03/06/17 07:00 Pulse Ox 95 03/06/17 07:00 Intake & Output 03/05/17 03/06/17 03/06/17 18:59 06:59 18:59 Intake Total 2638 Balance 2638 Intake: IV 800 Sodium Chloride 0.9% 1, 800 000 ml @ 100 mls/hr IV . Q10H [facility] Rx#:[id number] Oral 1838 Other: Voiding Method Urinal Urinal # Voids 1 1 - Exam GENERAL EXAM: Alert, active, comfortable in no apparent distress. HEAD: Normocephalic. EYES: Normal reaction of pupils, equal size. NOSE: Clear with pink turbinates. THROAT: No erythema or exudates. NECK: No masses, no JVD. CHEST: No chest wall deformity. LUNGS: Equal air entry with no crackles, wheeze, rhonchi or dullness. CVS: S1 and S2 normal with no audible murmurs, regular rhythm. ABDOMEN: No hepatosplenomegaly, normal bowel sounds, no guarding or rigidity. SPINE: No scoliosis or deformity SKIN: No rashes CENTRAL NERVOUS SYSTEM: No focal deficits, tone is normal in all 4 extremities. - Labs CBC & Chem 7: 03/06/17 07:37 03/06/17 07:37 Labs: Abnormal Lab Results - Last 24 Hours (Table) 03/06/17 03/06/17 Range/Units 07:37 07:37 RBC 2.42 L (4.30-5.90) m/uL Hgb 7.5 L (13.0-17.5) gm/dL Hct 24.0 L (39.0-53.0) % Chloride 110 H (98-107) mmol/L BUN 3 L (9-20) mg/dL Calcium 8.0 L (8.4-10.2) mg/dL Assessment and Plan Plan: Pression: #1 Acute gastrointestinal bleeding with positive tagged RBC revealing active bleeding involving the distal transverse colon. No further active bleeding. Current hemoglobin 7.5. #2 Supratherapeutic coagulopathy secondary to warfarin and Lovenox, recovered. Current INR 1.0. #3 Recent femoral-popliteal bypass with stent placement. #4 History of chronic tobacco dependence. #5 History of heavy alcohol use. #6 History of anxiety/depression. Plan: The patient was seen and evaluated by Dr. Laguna. He is currently stable from the critical care standpoint. We will follow the patient on as-needed basis.
[2017-03-06] MEDS: PANTOPRAZOLE 40 MG TABLET PO SCH (17:40)
--- NOTE | 2017-03-06 21:00 | P.PN ---
<Pauly Franco - Last Filed: 03/06/17 20:59> Progress Note - Text DATE OF SERVICE: 03/06/2017 PRESENTING COMPLAINT: GI bleed HISTORY OF PRESENT ILLNESS: 50-year-old patient who presented with 2 days of feeling weak and tired had gross bloody bowel movements at home, went to see his family doctor and told him about the bowel movements and was told to come to the ER. On arrival had 4 bloody bowel movements, hemoglobin dropped, received 2 units of blood. Patient was receiving Coumadin and INR was 4.6 on admission received vitamin K and fresh frozen plasma. GI was consulted, tagged red blood cell scan ordered and showed bleeding in the distal transverse colon. Patient is status post right femoral endarterectomy, right SFA and profunda embolectomy, right SFA stent, this procedure was done at [facility]. INTERVAL HISTORY: 03/06/2017: Patient seen in follow-up today, lying in bed appears comfortable. Had many questions regarding anticoagulation and whats being done about it. Discussed with the patient that we were consulting with vascular surgery to ensure proper products being put on his regimen. He is agreeable to this. No further episodes of rectal bleeding, hemoglobin is stabilized, up to the bathroom without difficulty although feels a little woozy at times. Last BM 03/05/2017: Patient seen in follow-up today, lying in bed appears frustrated. States he feels tired because he didn't sleep well and having difficulty with dietary. Otherwise patient feels good, tolerating his diet, states he is a bit of a fussy eater but eats when he can. No further episodes of rectal bleeding. Ambulating to and from the bathroom without difficulty. Last BM 03/04/2017. Discharge from [facility] received and will evaluate with vascular surgery for appropriate anticoagulation therapy. 03/04/2017: Patient seen and examined, patient lying in bed appears comfortable, GI took the patient for an EGD with biopsy and a colonoscopy with snare polypectomy. EGD revealed a 1.5 superficial duodenal bulbar ulcer with no active bleeding, small hiatal hernia and grade B reflux esophagitis. Colonoscopy revealed a small colon polyp status post polypectomy with some scattered left-sided diverticulosis. Postprocedure patient appears comfortable, diet advanced, no further episodes of bleeding, ambulatory within the room. REVIEW OF SYSTEMS: Done for constitutional ,cardiovascular, GI, pulmonary with relevant findings as above. CURRENT MEDICATIONS Xanax, Celexa, Protonix. PHYSICAL EXAM VITAL SIGNS: Temperature 98.2 pulse 65 respiratory rate 15 blood pressure 110/63 oxygen saturation 100% on room air. GENERAL APPEARANCE:. Lying in bed, appears anxious EYES: Pupils equal. Conjunctiva normal. NECK: JVD not raised. Mass not palpable. RESPIRATORY: Respiratory effort normal. Lungs clear to auscultation. CARDIOVASCULAR: First and second sounds normal. No edema. ABDOMEN: Soft. Liver and spleen not palpable. No tenderness. No mass palpable. PSYCHIATRY: Alert and oriented x3. Mood and affect calm anxious. INVESTIGATIONS: Hemoglobin 7.3, sodium 136, BUN 6, creatinine 0.69, ASSESSMENT: -Acute severe GI bleed likely from peptic ulcer disease in a patient taking Aleve until recently was on Coumadin and Lovenox with history of significant alcohol intake for many years -Peripheral arterial disease Status post right femoral endarterectomy, right SFA and profunda embolectomy, right SFA stent, performed at [facility] about 2 weeks ago requiring anticoagulation. -Left sided colonic diverticulosis, possible bleeding source -Acute severe blood loss anemia from GI bleed requiring 2 units of blood and causing hypotension with no shock -COPD in a current smoker -Chronic nicotine dependence patient is smoker -Chronic alcohol dependence to recently -Chronic depression not otherwise specified in remission PLAN: Continue patient on Protonix 40 mg daily and Diflucan. Await input from vascular surgery regarding anticoagulation needs and goals.. Plan of care discussed with the patient at the bedside he is in agreement. Discharge likely to occur in the next 24-48 hours. We'll continue to follow closely. [employer] statement: Patient was seen and examined by nurse practitioner Pauly Franco and all elements of the case discussed with attending Dr. Thomas <Cristobal Thomas - Last Filed: 03/06/17 23:34> Progress Note - Text Attending note. Date of service-03/06/2017 This patient was seen and examined by me . Discussed the patient with my nurse practitioner Ms. Franco. Normal bleeding. Comfortable. No abdominal pain. On examination: Abdomen-6 soft nontender Investigations: Hemoglobin 7.5 Assessment and plan: Acute GI bleed from peptic ulcer disease patient taking Aleve to recently that was on Coumadin and Lovenox after intervention for peripheral artery disease. I spoke to Dr. Coreas. He said to start the patient on Plavix and patient in follow-up at [facility] coming this Sunday
[2017-03-06] MEDS: ALPRAZolam 0.5 MG TAB PO PRN (21:11)
[2017-03-06] MEDS: CLOPIDOGREL 75 MG TAB PO SCH (22:39)
[2017-03-07 07:49] LABS: Prothrombin Time 10.3 sec (9.0-12.0)
[2017-03-07 07:51] LABS: Basophils # (A) 0.1 k/uL (0-0.2); Basophils % (A) 1 %; CH 32.4; CHCM 33.1; Eosinophils # (A) 0.1 k/uL (0-0.7); Eosinophils % (A) 2 %; HCT 26.7 % (39.0-53.0); HDW 2.35; HGB 8.6 gm/dL (13.0-17.5); Luc # (Auto) 0.12; Luc % (Auto) 2; Lymphocytes # (A) 1.4 k/uL (1.0-4.8); Lymphocytes % (A) 18 %; MCH 31.5 pg (25.0-35.0); MCHC 32.1 g/dL (31.0-37.0); MCV 98.3 fL (80.0-100.0); Mean Platelet Volume 7.8; Monocytes # (A) 0.3 k/uL (0-1.0); Monocytes % (A) 5 %; Neutrophils # (A) 5.4 k/uL (1.3-7.7); Neutrophils % (A) 73 %; RBC 2.72 m/uL (4.30-5.90); RDW 13.6 % (11.5-15.5); WBC 7.4 k/uL (3.8-10.6); WBC (Perox) 7.33
[2017-03-07 08:03] VITALS: BP 129/58; PULSE 61; RESP 15; TEMP 98.3
[2017-03-07 08:23] LABS: Anion Gap 7 mmol/L; Blood Urea Nitrogen 6 mg/dL (9-20); Calcium 8.2 mg/dL (8.4-10.2); Carbon Dioxide 23 mmol/L (22-30); Chloride 107 mmol/L (98-107); Glucose 77 mg/dL (74-99); Non-African American GFR(MDRD) >60 (>60 ml/min/1.73 sqM); Potassium 4.1 mmol/L (3.5-5.1); Sodium 137 mmol/L (137-145)
[2017-03-07] MEDS: PANTOPRAZOLE 40 MG TABLET PO SCH (08:58)
[2017-03-07] MEDS: CITALOPRAM HYDROBROMIDE 20 MG TAB PO SCH (08:58)
[2017-03-07] MEDS: CLOPIDOGREL 75 MG TAB PO SCH (08:58)
[2017-03-07] MEDS: SODIUM CHLORIDE 0.9% 1,000 ML IV SCH (08:59)
--- NOTE | 2017-03-07 16:33 | P.DS ---
Providers Date of admission: 03/02/17 12:12 Expected date of discharge: 03/07/17 Attending physician: Cristobal Thomas Consults: 03/02/17 12:17 Consult Physician Stat Consulting Provider: Jovany Waters Consult Reason/Comments: Hemorrhagic shock, acute GI bleed Do you want consulting provider notified?: Already Contacted Consult Physician Urgent Consulting Provider: Linden Solo Consult Reason/Comments: Recent femoral bypass, with GI bleed, anticoagulation recommendations Do you want consulting provider notified?: Already Contacted 03/03/17 15:17 Consult Physician Stat Consulting Provider: Edna Martins Consult Reason/Comments: Bleeding Transverse Colon Do you want consulting provider notified?: Yes 03/04/17 17:29 Consult Physician Routine Consulting Provider: Linden Solo Consult Reason/Comments: recent vascular intervention Do you want consulting provider notified?: Yes [facility] Course: Final diagnosis: -Acute severe GI bleed likely from duodenal ulcer disease in a patient taking Aleve until recently was on Coumadin and Lovenox with history of significant alcohol intake for many years -Grade B reflux esophagitis -Peripheral arterial disease Status post right femoral endarterectomy, right SFA and profunda embolectomy, right SFA stent, performed at [facility] about 2 weeks ago . -Left sided colonic diverticulosis, -Acute severe blood loss anemia from GI bleed requiring 2 units of blood and causing hypotension with no shock -COPD in a current smoker -Chronic nicotine dependence patient is smoker -Chronic alcohol dependence to recently -Chronic depression not otherwise specified in remission Hospital course: This patient presented with GI bleed. He recently had intervention to the right leg arterial system transferred to [facility] for intervention including thrombo-embolectomy. Patient was discharged on Lovenox and Coumadin. Prior to that patient be doing quite a bit of Aleve. Patient presently GI bleed. EGD confirmed a duodenal ulcer and colonoscopy did show diverticulosis. Patient had no further bleeding. Patient did get 2 units of blood. Last hemoglobin was 8.6. I spoke to Dr. Coreas from vascular surgery and he said to put him on Plavix. Patient is due to follow-up at [facility] this coming Sunday. Patient is feeling well. No further bleeding. Up and about. Care was discussed with the patient. On examination: Lungs-slight decreased breath sounds, abdomen soft nontender Consultation: Dr. Coreas from vascular surgery Dr. Jolene Verdin from GI Dr. Martins from general surgery Dr. Waters from critical care Plan - Discharge Summary New Discharge Prescriptions: New Clopidogrel [Plavix] 75 mg PO DAILY #30 tab Pantoprazole [Protonix] 40 mg PO DAILY #30 tab Continue Fish Oil/Dha/Epa [Fish Oil 1,200 mg Fish Oil] 1 cap PO DAILY Citalopram Hydrobromide [CeleXA] 20 mg PO BID Albuterol Inhaler [Ventolin Hfa Inhaler] 1 - 2 puff INHALATION RT-QID PRN PRN Reason: Shortness Of Breath ALPRAZolam [Xanax] 0.5 mg PO Q8H oxyCODONE HCL [OxyIR] 5 mg PO Q4HR PRN PRN Reason: Pain Atorvastatin [Lipitor] 40 mg PO DIRECTED Discontinued Naproxen Sodium [Aleve] 220 mg PO BID PRN PRN Reason: Pain Warfarin [Coumadin] 7.5 mg PO HS Enoxaparin [Lovenox] 100 mg SQ Q12H Aspirin 81 mg PO DAILY Discharge Medication List ALPRAZolam [Xanax] 0.5 mg PO Q8H 02/22/17 [History] Albuterol Inhaler [Ventolin Hfa Inhaler] 1 - 2 puff INHALATION RT-QID PRN [History] Citalopram Hydrobromide [CeleXA] 20 mg PO BID 02/22/17 [History] Fish Oil/Dha/Epa [Fish Oil 1,200 mg Fish Oil] 1 cap PO DAILY 02/22/17 [History] Atorvastatin [Lipitor] 40 mg PO DIRECTED 03/02/17 [History] oxyCODONE HCL [OxyIR] 5 mg PO Q4HR PRN 03/02/17 [History] Clopidogrel [Plavix] 75 mg PO DAILY #30 tab 03/06/17 [Rx] Pantoprazole [Protonix] 40 mg PO DAILY #30 tab 03/06/17 [Rx] Follow up Appointment(s)/Referral(s): Blas Espinal MD [Primary Care Provider] - 03/29/17 11:00 am Sabine Verdin MD [STAFF PHYSICIAN] - 03/29/17 3:00 pm Jovany Waters DO [Doctor of Osteopathic Medicine] - As Needed Linden Solo MD [STAFF PHYSICIAN] - 04/05/17 10:30 am () Ambulatory/Diagnostic Orders: Complete Blood Count w/diff [LAB.AMB] Location: Determined By Patient Patient Instructions/Handouts: Clopidogrel (By mouth), Pantoprazole (By mouth) , Gastrointestinal Bleeding (DC) Activity/Diet/Wound Care/Special Instructions: [facility] - Need to follow up with [facility] Vascular surgery on Sunday to determine when OK to return to work. Will be off until Sunday03/09/2017 Discharge Disposition: HOME WITH HOME HEALTH SERVICES
== END 2017-03-07 10:40 | disposition home health service (06) | DRG 378 ==
LOC: EC 10:18 → 6ICU 12:12 → 5MS5E 03-04 11:56
PROVIDERS: ADMIT Hospitalist; ATTEND Hospitalist
PROC: 30243K1 Transfusion of Nonautologous Frozen Plasma into Central Vein, Percutaneous Approach (ICD-10-PCS; 2017-03-02)
PROC: 30243N1 Transfusion of Nonautologous Red Blood Cells into Central Vein, Percutaneous Approach (ICD-10-PCS; 2017-03-02)
PROC: 05H533Z Insertion of Infusion Device into Right Subclavian Vein, Percutaneous Approach (ICD-10-PCS; 2017-03-02)
PROC: 0DB78ZX Excision of Stomach, Pylorus, Via Natural or Artificial Opening Endoscopic, Diagnostic (ICD-10-PCS; principal; 2017-03-04 11:00)
PROC: 0DBN8ZX Excision of Sigmoid Colon, Via Natural or Artificial Opening Endoscopic, Diagnostic (ICD-10-PCS; 2017-03-04 11:00)
DX: K26.4 Chronic or unspecified duodenal ulcer with hemorrhage (principal); D62 Acute posthemorrhagic anemia; I95.9 Hypotension, unspecified; K57.31 Diverticulosis of large intestine without perforation or abscess with bleeding; D75.1 Secondary polycythemia; F33.40 Major depressive disorder, recurrent, in remission, unspecified; T39.315A Adverse effect of propionic acid derivatives, initial encounter; R00.0 Tachycardia, unspecified; T45.515A Adverse effect of anticoagulants, initial encounter; K29.70 Gastritis, unspecified, without bleeding; K44.9 Diaphragmatic hernia without obstruction or gangrene; F10.20 Alcohol dependence, uncomplicated; E78.5 Hyperlipidemia, unspecified; J44.9 Chronic obstructive pulmonary disease, unspecified; D12.5 Benign neoplasm of sigmoid colon; R53.1 Weakness; I73.9 Peripheral vascular disease, unspecified; F41.9 Anxiety disorder, unspecified; K21.0 Gastro-esophageal reflux disease with esophagitis; F17.200 Nicotine dependence, unspecified, uncomplicated; Z79.899 Other long term (current) drug therapy; Z82.49 Family history of ischemic heart disease and other diseases of the circulatory system; Z80.8 Family history of malignant neoplasm of other organs or systems; Z86.718 Personal history of other venous thrombosis and embolism; Z79.82 Long term (current) use of aspirin; Z51.81 Encounter for therapeutic drug level monitoring; Z79.01 Long term (current) use of anticoagulants; Z79.1 Long term (current) use of non-steroidal anti-inflammatories (NSAID); Z79.891 Long term (current) use of opiate analgesic; Z95.820 Peripheral vascular angioplasty status with implants and grafts; Z95.828 Presence of other vascular implants and grafts
CPT/HCPCS: 36415; 36556; 43239; 45385; 71010; 78278; 80048; 80053; 82272; 82550; 82553; 83605; 83735; 84100; 84484; 85025; 85027; 85610; 85730; 86850; 86900; 86901; 86920; 88305; 88342; 93005; 96365; 96375; 99291

== ENCOUNTER 2023-01-07 10:12 | Emergency (ER) | payer BC, OTHER ==
[2023-01-07 10:17] VITALS: RESP 18
[2023-01-07] MEDS ORDERED: KETOROLAC 15 MG/ML 1 ML VIAL IVP STA (10:40)
--- NOTE | 2023-01-07 11:12 | ED ---
Lower Extremity Injury HPI - General Chief Complaint: Extremity Injury, Lower Stated Complaint: L leg pain Time Seen by Provider: 01/07/23 10:24 Source: patient, RN notes reviewed Mode of arrival: wheelchair - History of Present Illness Initial Comments: This is a 57-year-old male who presents to the emergency department for left leg pain. States that it started yesterday. Feels like this is a burning sensation from the left knee down to the foot. Pain is worse in the front of the leg. Denies any injuries. 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 However, states that the symptoms feel different. When this was the case, his leg was cold and the pain was different. States that this time, his leg looks slightly red, particularly around the rivera. Denies any chest pain or shortness of breath. He is still on blood thinners. Denies any fevers, chills, sore throat, cough, dyspnea, chest pain, palpitations, abdominal pain, nausea, vomiting, diarrhea, back pain, or headaches. - Related Data Home Medications Medication Instructions Recorded Confirmed ALPRAZolam [Xanax] 0.5 mg PO Q8H 02/22/17 03/02/17 Albuterol Inhaler [Ventolin Hfa 1 - 2 puff INHALATION RT-QID PRN 02/22/17 03/02/17 Inhaler] Citalopram Hydrobromide [CeleXA] 20 mg PO BID 02/22/17 03/02/17 Fish Oil/Dha/Epa [Fish Oil 1,200 1 cap PO DAILY 02/22/17 03/02/17 mg Fish Oil] Atorvastatin [Lipitor] 40 mg PO DIRECTED 03/02/17 03/02/17 oxyCODONE HCL [OxyIR] 5 mg PO Q4HR PRN 03/02/17 03/02/17 Previous Rx's Medication Instructions Recorded Clopidogrel [Plavix] 75 mg PO DAILY #30 tab 03/06/17 Pantoprazole [Protonix] 40 mg PO DAILY #30 tab 03/06/17 HYDROcodone/APAP 5-325MG [Denton 1 tab PO Q6HR PRN 3 Days #12 tab 01/07/23 5-325] Allergies Allergy/AdvReac Type Severity Reaction Status Date / Time No Known Allergies Allergy Verified 01/07/23 10:17 Review of Systems ROS Statement: Those systems with pertinent positive or pertinent negative responses have been documented in the HPI. ROS Other: All systems not noted in ROS Statement are negative. Past Medical History Past Medical History: COPD, Vascular Disorder Additional Past Medical History / Comment(s): PVD, DVT R leg-recent R femoral popliteal bypass at [facility] 02/22/17, History of Any Multi-Drug Resistant Organisms: None Reported Past Surgical History: Orthopedic Surgery Additional Past Surgical History / Comment(s): R fem pop bypass 02/22/17 [facility], bilateral knee arthroscopic surgeries. Past Anesthesia/Blood Transfusion Reactions: No Reported Reaction Additional Past Anesthesia/Blood Transfusion Reaction / Comment(s): Pt is currently receiving blood-no reaction at this time. Past Psychological History: Anxiety, Depression Smoking Status: Current every day smoker Past Alcohol Use History: Daily, Heavy Past Drug Use History: None Reported - Past Family History Mother Family Medical History: Cancer, Hyperlipidemia Additional Family Medical History / Comment(s): Mother had skin cancer. She is living. Father Family Medical History: Hyperlipidemia, Hypertension Additional Family Medical History / Comment(s): Father has heart condition. General Exam Limitations: no limitations General appearance: alert, in no apparent distress Head exam: Present: atraumatic, normocephalic, normal inspection Respiratory exam: Present: normal lung sounds bilaterally. Absent: respiratory distress, wheezes, rales, rhonchi, stridor Cardiovascular Exam: Present: regular rate, normal rhythm, normal heart sounds. Absent: systolic murmur, diastolic murmur, rubs, gallop, clicks Extremities exam: Present: other (Minor erythema to the anterior aspect of the left lower extremity. No calf tenderness. 2+ DP/PT pulses. Capillary refill <1 second. Extremity is warm and well perfused.) Neurological exam: Present: alert, oriented X3, CN II-XII intact Psychiatric exam: Present: normal affect, normal mood Course Vital Signs 01/07/23 01/07/23 01/07/23 10:13 12:59 14:06 Temperature 98.6 F 98.0 F Pulse Rate 105 H 88 80 Respiratory 18 18 18 Rate Blood Pressure 142/83 157/93 143/89 O2 Sat by Pulse 95 96 96 Oximetry Medical Decision Making - Medical Decision Making This is a 57-year-old male who presents to the emergency department for left leg pain. Was pt. sent in by a medical professional or institution? @ -No Did you speak to anyone other than the patient for history? @ -No Did you review nursing and triage notes? @ -Yes, and I agree, it is accurate with regards to the patient's symptoms. Were old charts reviewed? @ -No Differential Diagnosis? @ -Differential Leg Pain: Leg fracture, leg sprain, DVT, PVD, arterial insufficiency, iliac artery aneurysm, cellulitis, compartment syndrome, tendinopathy, nerve entrapment, piriformis syndrome, osteoarthritis, rhabdomyolysis, myositis, cramping from an electrolyte imbalance, this is not meant to be an all inclusive list. EKG interpreted by me (3pts min.)? @ -Not obtained X-rays interpreted by me (1pt min.)? @ -Not obtained CT interpreted by me (1pt min.)? @ -Not obtained U/S interpreted by me (1pt. min.)? @ -Duplex ultrasound of the left lower extremity obtained. My interpretation identifies no evidence of a DVT. What testing was considered but not performed? (CT, X-rays, U/S, labs)? Why? @ -None What meds were considered but not given? Why? @ -None Did you discuss the management of the patient with other professionals? @ -No Did you reconcile home meds? @ -No Was smoking cessation discussed for >3mins.? @ -No Was critical care preformed (if so, how long)? @ -No Were there social determinants of health that impacted care today? How? (Homelessness, low income, unemployed, alcoholism, drug addiction, transportation, low edu. Level, literacy, decrease access to med. care, intermediate, rehab)? @ -No Was there de-escalation of care discussed even if they declined? (Discuss DNR or withdrawal of care, Hospice)? @ -No What co-morbidities impacted this encounter? (DM, HTN, Smoking, COPD, CAD, Cance r, CVA, Hep., AIDS, mental health diagnosis, sleep apnea, morbid obesity)? @ -Vascular disorder Was patient admitted / discharged? @ -Discharged. Lab work obtained revealing hyponatremia. However, the patient is not symptomatic in this regard, and this is not at a level that would necessitate the need for admission. Patient was made aware of this and the need to follow-up on this with his primary care provider. Duplex ultrasound of the left lower extremity obtained revealing no evidence of a DVT or other acute process. His extremities werewarm and well perfused and he had strong pulses. This is not consistent with an arterial occlusion like he has had in the past. Advised that given this history, if it would make him more comfortable, I am willing to order a CT angiogram. Patient declined. He was given Toradol and Denton, and his pain was well-controlled. He was able to ambulate without difficulty and felt comfortable with discharge home. Advised that the cause of his pain is not entirely clear at this time. Prescription for Denton provided with dosing instructions reviewed. Advised to take this sparingly when his pain is the most severe and to avoid driving or operating machinery when taking this. Otherwise advised to alternate with ibuprofen and Tylenol and have close follow-up with his primary care provider. Undiagnosed new problem with uncertain prognosis? @ -None Drug Therapy requiring intensive monitoring for toxicity (Heparin, Nitro, Insulin, Cardizem)? @ -None Were any procedures done? @ -None Diagnosis/symptom? @ -Left leg pain Acute, or Chronic, or Acute on Chronic? @ -Acute Uncomplicated (without systemic symptoms) or Complicated (systemic symptoms)? @ -Uncomplicated Side effects of treatment? @ -None Exacerbation, Progression, or Severe Exacerbation] @ -Not applicable Poses a threat to life or bodily function? @ -No Return precautions reviewed in depth, the patient is instructed to return to the emergency department with any new, worsening, or concerning symptoms. Patient verbalized understanding. This case was discussed in detail with the attending ED physician, Dr. Guerrero. Presentation, findings, and treatment plan discussed in detail as well. - Lab Data Result diagrams: 01/07/23 10:54 01/07/23 10:54 Lab Results 01/07/23 01/07/23 01/07/23 Range/Units 10:54 10:54 10:54 WBC 7.9 (3.8-10.6) k/uL RBC 5.87 (4.30-5.90) m/uL Hgb 16.3 (13.0-17.5) gm/dL Hct 49.4 (39.0-53.0) % MCV 84.1 (80.0-100.0) fL MCH 27.7 (25.0-35.0) pg MCHC 33.0 (31.0-37.0) g/dL RDW 14.0 (11.5-15.5) % Plt Count 254 (150-450) k/uL MPV 7.5 Neutrophils % 76 % Lymphocytes % 13 % Monocytes % 9 % Eosinophils % 1 % Basophils % 0 % Neutrophils # 6.0 (1.3-7.7) k/uL Lymphocytes # 1.0 (1.0-4.8) k/uL Monocytes # 0.7 (0-1.0) k/uL Eosinophils # 0.1 (0-0.7) k/uL Basophils # 0.0 (0-0.2) k/uL Sodium 127 L (137-145) mmol/L Potassium 4.6 (3.5-5.1) mmol/L Chloride 97 L (98-107) mmol/L Carbon Dioxide 21 L (22-30) mmol/L Anion Gap 9 mmol/L BUN 5 L (9-20) mg/dL Creatinine 0.80 (0.66-1.25) mg/dL Est GFR (CKD-EPI)AfAm >90 (>60 ml/min/1.73 sqM) Est GFR (CKD-EPI)NonAf >90 (>60 ml/min/1.73 sqM) Glucose 109 H (74-99) mg/dL Plasma Lactic Acid Rajeev 1.4 (0.7-2.0) mmol/L Calcium 9.0 (8.4-10.2) mg/dL Total Bilirubin 1.1 (0.2-1.3) mg/dL AST 94 H (17-59) U/L ALT 77 H (4-49) U/L Alkaline Phosphatase 101 (38-126) U/L C-Reactive Protein 1.1 H (<1.0) mg/dL Total Protein 7.9 (6.3-8.2) g/dL Albumin 4.0 (3.5-5.0) g/dL - Radiology Data Radiology results: report reviewed, image reviewed Disposition Clinical Impression: Left leg pain Disposition: HOME SELF-CARE Instructions (If sedation given, give patient instructions): Leg Pain (ED) Additional Instructions: Return to the emergency department with any new, worsening, or concerning symptoms. Alternate with ibuprofen and Tylenol as needed for pain relief. Take the Denton sparingly when your pain is the most severe and be aware that it may make you drowsy. Follow up with your primary care provider in 1-2 days. Prescriptions: HYDROcodone/APAP 5-325MG [Denton 5-325] 1 tab PO Q6HR PRN 3 Days #12 tab PRN Reason: Pain Is patient prescribed a controlled substance at d/c from ED?: Yes When asked, does pt state using other controlled substances?: No If prescribed controlled substance>3 days was MAPS reviewed?: Prescribed <3 Days Referrals: Blas Espinal MD [Primary Care Provider] - 1-2 days
[2023-01-07 11:21] LABS: Basophils % (A) 0 %; Eosinophils # (A) 0.1 k/uL (0-0.7); Eosinophils % (A) 1 %; HCT 49.4 % (39.0-53.0); HGB 16.3 gm/dL (13.0-17.5); Lymphocytes % (A) 13 %; MCH 27.7 pg (25.0-35.0); MCV 84.1 fL (80.0-100.0); Mean Platelet Volume 7.5; Monocytes # (A) 0.7 k/uL (0-1.0); Monocytes % (A) 9 %; Neutrophils % (A) 76 %; Platelet Count 254 k/uL (150-450); RBC 5.87 m/uL (4.30-5.90); WBC 7.9 k/uL (3.8-10.6)
[2023-01-07 11:34] LABS: ALT 77 U/L (4-49); AST 94 U/L (17-59); African American GFR (CKD) >90 (>60 ml/min/1.73 sqM); Alkaline Phosphatase 101 U/L (38-126); Anion Gap 9 mmol/L; Blood Urea Nitrogen 5 mg/dL (9-20); C Reactive Protein 1.1 mg/dL (<1.0); Carbon Dioxide 21 mmol/L (22-30); Chloride 97 mmol/L (98-107); Glucose 109 mg/dL (74-99); Non-African American GFR(CKD) >90 (>60 ml/min/1.73 sqM); Potassium 4.6 mmol/L (3.5-5.1); Sodium 127 mmol/L (137-145); Total Bilirubin 1.1 mg/dL (0.2-1.3); Total Protein 7.9 g/dL (6.3-8.2)
--- NOTE | 2023-01-07 12:03 | US ---
EXAMINATION TYPE: US venous doppler duplex LE LT DATE OF EXAM: 01/07/2023 11:54 AM COMPARISON: US 2010 CLINICAL INDICATION: Male, 57 years old with history of Left leg pain and redness; SIDE PERFORMED: Left TECHNIQUE: The lower extremity deep venous system is examined utilizing real time linear array sonog bernadine with graded compression, doppler sonography and color-flow sonography. VESSELS IMAGED: Common Femoral Vein Deep Femoral Vein Greater Saphenous Vein * Femoral Vein Popliteal Vein Small Saphenous Vein * Proximal Calf Veins (* superficial vessels) Left Leg: Appears negative for DVT IMPRESSION: 1. Left lower extremity ultrasound negative for deep venous thrombosis.
[2023-01-07] MEDS ORDERED: HYDROcodone/APAP 7.5-325MG 1 EACH TAB PO ONE (12:56)
[2023-01-07] MEDS ORDERED: ACET/COD 300 MG/30 MG STARTER PACK 6 TAB BTL PO STA (14:05)
[2023-01-07] MEDS ORDERED: IBUPROFEN 600 MG STARTER PACK 4 TAB BTL PO STA (14:05)
[2023-01-07 14:12] VITALS: BP 143/89; PULSE 80; TEMP 98
== END 2023-01-07 14:58 | disposition home or self-care (01) ==
LOC: EC 10:12
DX: M79.605 Pain in left leg (principal); F32.A Depression, unspecified; F41.9 Anxiety disorder, unspecified; J44.9 Chronic obstructive pulmonary disease, unspecified; F17.200 Nicotine dependence, unspecified, uncomplicated; Z79.899 Other long term (current) drug therapy
CPT/HCPCS: 36415; 80053; 83605; 85025; 86140; 93971; 99284; 96374; J1885

== ENCOUNTER 2023-09-03 10:45 | Inpatient (IN) | payer OTHER ==
[2023-09-03] MEDS ORDERED: VANCOMYCIN IV PER PHARMACY 1 EACH MISC MISCELLANE PRN (10:52)
--- NOTE | 2023-09-03 10:57 | ED ---
General Adult HPI - General Stated complaint: LEG INFECTION Time Seen by Provider: 09/03/23 10:45 Source: patient, RN notes reviewed, old records reviewed - History of Present Illness Initial comments: This is a 57-year-old male who presents to the emergency department stating that he had a wound on the top of his foot about 8 months ago and has been taking care with Neosporin but more recently his foot has become worse and he has not removed his sock in about a week and he decided to come to the emergency department today because he is finding it difficult to walk on that foot anymore. Patient states he does not have a primary care doctor and he sees no one for this wound in the past. Patient denies being a diabetic. Patient states he had an arterial occlusion on the other leg and had it opened up in the past. - Related Data Home Medications Medication Instructions Recorded Confirmed ALPRAZolam [Xanax] 0.5 mg PO HS 02/22/17 09/03/23 ALPRAZolam [Xanax] 0.25 mg PO DAILY PRN 09/03/23 09/03/23 Citalopram Hydrobromide [CeleXA] 20 mg PO HS 09/03/23 09/03/23 Omeprazole 20 mg PO HS 09/03/23 09/03/23 Allergies Allergy/AdvReac Type Severity Reaction Status Date / Time No Known Allergies Allergy Verified 09/03/23 12:15 Review of Systems ROS Statement: Those systems with pertinent positive or pertinent negative responses have been documented in the HPI. ROS Other: All systems not noted in ROS Statement are negative. Past Medical History Past Medical History: COPD, Vascular Disorder Additional Past Medical History / Comment(s): PVD, DVT R leg-recent R femoral popliteal bypass at [facility] 02/22/17, History of Any Multi-Drug Resistant Organisms: None Reported Past Surgical History: Orthopedic Surgery Additional Past Surgical History / Comment(s): R fem pop bypass 02/22/17 [facility], bilateral knee arthroscopic surgeries. Past Anesthesia/Blood Transfusion Reactions: No Reported Reaction Additional Past Anesthesia/Blood Transfusion Reaction / Comment(s): Pt is currently receiving blood-no reaction at this time. Past Psychological History: Anxiety, Depression Smoking Status: Current every day smoker Past Alcohol Use History: Daily, Heavy Past Drug Use History: None Reported - Past Family History Mother Family Medical History: Cancer, Hyperlipidemia Additional Family Medical History / Comment(s): Mother had skin cancer. She is living. Father Family Medical History: Hyperlipidemia, Hypertension Additional Family Medical History / Comment(s): Father has heart condition. General Exam - General Exam Comments Initial Comments: GENERAL: Patient is well-developed and well-nourished. Patient is nontoxic and well- hydrated and is in mild distress. ENT: Neck is soft and supple. No significant lymphadenopathy is noted. Oropharynx is clear. Moist mucous membranes. Neck has full range of motion without eliciting any pain. EYES: The sclera were anicteric and conjunctiva were pink and moist. Extraocular movements were intact and pupils were equal round and reactive to light. Eyelids were unremarkable. PULMONARY: Unlabored respirations. Good breath sounds bilaterally. No audible rales rhonchi or wheezing was noted. CARDIOVASCULAR: There is a regular rate and rhythm without any murmurs gallops or rubs. Femoral pulses are equal bilaterally ABDOMEN: Soft and nontender with normal bowel sounds. No palpable organomegaly was noted. There is no palpable pulsatile mass. SKIN: Skin is clear with no lesions or rashes and otherwise unremarkable. NEUROLOGIC: Patient is alert and oriented x3. Cranial nerves II through XII are grossly intact. Motor and sensory are also intact. Normal speech, volume and content. Symmetrical smile. MUSCULOSKELETAL: Left foot has a large wound that is mostly scabbed over on the top of the foot around the medial aspect of the ankle and around the heel. Patient also has a necrotic looking left first toe without any cap refill. His other toes do have cap refill just over 2 seconds LYMPHATICS: No significant lymphadenopathy is noted PSYCHIATRIC: Normal psychiatric evaluation. Course Vital Signs 09/03/23 10:51 Temperature 98.4 F Pulse Rate 105 H Respiratory 18 Rate Blood Pressure 128/91 O2 Sat by Pulse 97 Oximetry Medical Decision Making - Medical Decision Making EKG is interpreted by myself. EKG shows a sinus rhythm at 97 bpm NC interval 170 QRS is 89 QT interval 352 QTc is 407. Was pt. sent in by a medical professional or institution (, PA, IRONWORKER MACHINE OPERATOR, urgent care, hospital, or custodial...) When possible be specific @ -No Did you speak to anyone other than the patient for history (EMS, parent, family, police, friend...)? What history was obtained from this source @ -No Did you review nursing and triage notes (agree or disagree)? Why? @ -I reviewed and agree with nursing and triage notes Were old charts reviewed (outside hosp., previous admission, EMS record, old EKG, old radiological studies, urgent care reports/EKG's, custodial records)? Report findings @ -No old charts were reviewed Differential Diagnosis (chest pain, altered mental status, abdominal pain women, abdominal pain men, vaginal bleeding, weakness, fever, dyspnea, syncope, headache, dizziness, GI bleed, back pain, seizure, CVA, palpatations, mental health, musculoskeletal)? @ -Arterial occlusion, infected wound, osteomyelitis, cellulitis, this is not an all-inclusive list EKG interpreted by me (3pts min.). @ -As above X-rays interpreted by me (1pt min.). @ -X-ray of the foot shows no acute abnormality CT interpreted by me (1pt min.). @ -None done U/S interpreted by me (1pt. min.). @ -None done What testing was considered but not performed or refused? (CT, X-rays, U/S, labs)? Why? @ -None What meds were considered but not given or refused? Why? @ -None Did you discuss the management of the patient with other professionals (professionals i.e. , PA, IRONWORKER MACHINE OPERATOR, lab, RT, psych nurse, social media marketing specialist, supervisor braiding, teacher, bank operations officer, shelter case manager)? Give summary @ -I spoke with [facility] they agreed to admit the patient admit the patient wrote admitting orders Was smoking cessation discussed for >3mins.? @ -No Was critical care preformed (if so, how long)? @ -35 minutes Were there social determinants of health that impacted care today? How? (Homelessness, low income, unemployed, alcoholism, drug addiction, transportation, low edu. Level, literacy, decrease access to med. care, retirement, rehab)? @ -No Was there de-escalation of care discussed even if they declined (Discuss DNR or withdrawal of care, Hospice)? DNR status @ -No What co-morbidities impacted this encounter? (DM, HTN, Smoking, COPD, CAD, Cancer, CVA, ARF, Chemo, Hep., AIDS, mental health diagnosis, sleep apnea, morbid obesity)? @ -None Was patient admitted / discharged? Hospital course, mention meds given and route, prescriptions, significant lab abnormalities, going to OR and other pertinent info. @ -Patient received Zosyn and vancomycin for the wound and also received fluids. Patient had a sodium of 119. I spoke with [facility] hospitalist agreed admit the patient to the patient consult nephrology and ID Undiagnosed new problem with uncertain prognosis? @ -No Drug Therapy requiring intensive monitoring for toxicity (Heparin, Nitro, Insulin, Cardizem)? @ -No Were any procedures done? @ -No Diagnosis/symptom? @ -Infected wound of foot Acute, or Chronic, or Acute on Chronic? @ -Acute Uncomplicated (without systemic symptoms) or Complicated (systemic symptoms)? @ -Complicated Side effects of treatment? @ -No Exacerbation, Progression, or Severe Exacerbation? @ -No Poses a threat to life or bodily function? How? (Chest pain, USA, MD, pneumonia, PE, COPD, DKA, ARF, appy, cholecystitis, CVA, Diverticulitis, Homicidal, Suicidal, threat to staff... and all critical care pts) @ -Yes this could lead to sepsis and endorgan dysfunction Diagnosis/symptom? @ -Hyponatremia Acute, or Chronic, or Acute on Chronic? @ -Acute Uncomplicated (without systemic symptoms) or Complicated (systemic symptoms)? @ -Complicated Side effects of treatment? @ -None Exacerbation, Progression, or Severe Exacerbation] @ -No Poses a threat to life or bodily function? @ -Yes this can lead to altered mental status and coma. - Lab Data Result diagrams: 09/03/23 11:10 09/03/23 11:10 Lab Results 09/03/23 09/03/23 09/03/23 Range/Units 11:10 11:10 11:10 WBC 10.7 H (3.8-10.6) k/uL RBC 4.42 (4.30-5.90) m/uL Hgb 12.6 L (13.0-17.5) gm/dL Hct 36.5 L (39.0-53.0) % MCV 82.5 (80.0-100.0) fL MCH 28.6 (25.0-35.0) pg MCHC 34.6 (31.0-37.0) g/dL RDW 12.8 (11.5-15.5) % Plt Count 329 (150-450) k/uL MPV 7.2 Neutrophils % 84 % Lymphocytes % 7 % Monocytes % 7 % Eosinophils % 1 % Basophils % 0 % Neutrophils # 8.9 H (1.3-7.7) k/uL Lymphocytes # 0.7 L (1.0-4.8) k/uL Monocytes # 0.7 (0-1.0) k/uL Eosinophils # 0.1 (0-0.7) k/uL Basophils # 0.0 (0-0.2) k/uL PT 11.7 (10.0-12.5) sec INR 1.1 (<1.2) APTT 28.8 (22.0-30.0) sec Sodium 119 L* (137-145) mmol/L Potassium 4.2 (3.5-5.1) mmol/L Chloride 89 L (98-107) mmol/L Carbon Dioxide 21 L (22-30) mmol/L Anion Gap 9 mmol/L BUN 10 (9-20) mg/dL Creatinine 0.53 L (0.66-1.25) mg/dL Est GFR (CKD-EPI)AfAm >90 (>60 ml/min/1.73 sqM) Est GFR (CKD-EPI)NonAf >90 (>60 ml/min/1.73 sqM) Glucose 100 H (74-99) mg/dL Plasma Lactic Acid Rajeev (0.7-2.0) mmol/L Calcium 8.8 (8.4-10.2) mg/dL Total Bilirubin 1.1 (0.2-1.3) mg/dL AST 40 (17-59) U/L ALT 28 (4-49) U/L Alkaline Phosphatase 101 (38-126) U/L Total Protein 6.9 (6.3-8.2) g/dL Albumin 3.3 L (3.5-5.0) g/dL 09/03/23 Range/Units 11:10 WBC (3.8-10.6) k/uL RBC (4.30-5.90) m/uL Hgb (13.0-17.5) gm/dL Hct (39.0-53.0) % MCV (80.0-100.0) fL MCH (25.0-35.0) pg MCHC (31.0-37.0) g/dL RDW (11.5-15.5) % Plt Count (150-450) k/uL MPV Neutrophils % % Lymphocytes % % Monocytes % % Eosinophils % % Basophils % % Neutrophils # (1.3-7.7) k/uL Lymphocytes # (1.0-4.8) k/uL Monocytes # (0-1.0) k/uL Eosinophils # (0-0.7) k/uL Basophils # (0-0.2) k/uL PT (10.0-12.5) sec INR (<1.2) APTT (22.0-30.0) sec Sodium (137-145) mmol/L Potassium (3.5-5.1) mmol/L Chloride (98-107) mmol/L Carbon Dioxide (22-30) mmol/L Anion Gap mmol/L BUN (9-20) mg/dL Creatinine (0.66-1.25) mg/dL Est GFR (CKD-EPI)AfAm (>60 ml/min/1.73 sqM) Est GFR (CKD-EPI)NonAf (>60 ml/min/1.73 sqM) Glucose (74-99) mg/dL Plasma Lactic Acid Rajeev 1.2 (0.7-2.0) mmol/L Calcium (8.4-10.2) mg/dL Total Bilirubin (0.2-1.3) mg/dL AST (17-59) U/L ALT (4-49) U/L Alkaline Phosphatase (38-126) U/L Total Protein (6.3-8.2) g/dL Albumin (3.5-5.0) g/dL Disposition Clinical Impression: Infected wound, Hyponatremia Disposition: ADMITTED IP TO THIS HOSP Referrals: None,Stated [Primary Care Provider] - 1-2 days Time of Disposition: 13:37
[2023-09-03] MEDS: SODIUM CHLORIDE 0.9% 500 ML 500 ML IV SCH (11:16)
[2023-09-03] MEDS: PIPERACILLIN-TAZOBACTAM 3.375 GM in SODIUM CHLORIDE 0.9% 100 ML IVPB STA (11:18)
[2023-09-03 11:20] LABS: Basophils % (A) 0 %; Eosinophils # (A) 0.1 k/uL (0-0.7); Eosinophils % (A) 1 %; HCT 36.5 % (39.0-53.0); HGB 12.6 gm/dL (13.0-17.5); Lymphocytes # (A) 0.7 k/uL (1.0-4.8); Lymphocytes % (A) 7 %; MCH 28.6 pg (25.0-35.0); MCHC 34.6 g/dL (31.0-37.0); MCV 82.5 fL (80.0-100.0); Mean Platelet Volume 7.2; Monocytes # (A) 0.7 k/uL (0-1.0); Monocytes % (A) 7 %; Neutrophils # (A) 8.9 k/uL (1.3-7.7); Neutrophils % (A) 84 %; Platelet Count 329 k/uL (150-450); RBC 4.42 m/uL (4.30-5.90); RDW 12.8 % (11.5-15.5); WBC 10.7 k/uL (3.8-10.6)
[2023-09-03] MEDS: KETOROLAC 15 MG/ML 1 ML VIAL IVP STA (11:31)
[2023-09-03] MEDS: HYDROmorphone 0.5 MG/0.5 ML SYRINGE IVP STA (11:33)
[2023-09-03 11:34] LABS: ALT 28 U/L (4-49); African American GFR (CKD) >90 (>60 ml/min/1.73 sqM); Albumin 3.3 g/dL (3.5-5.0); Anion Gap 9 mmol/L; Blood Urea Nitrogen 10 mg/dL (9-20); Calcium 8.8 mg/dL (8.4-10.2); Carbon Dioxide 21 mmol/L (22-30); Chloride 89 mmol/L (98-107); Glucose 100 mg/dL (74-99); Non-African American GFR(CKD) >90 (>60 ml/min/1.73 sqM); Total Bilirubin 1.1 mg/dL (0.2-1.3); Total Protein 6.9 g/dL (6.3-8.2)
[2023-09-03 11:37] LABS: AST 40 U/L (17-59); Potassium 4.2 mmol/L (3.5-5.1); Sodium 119 mmol/L (137-145)
[2023-09-03 11:38] LABS: Alkaline Phosphatase 101 U/L (38-126)
[2023-09-03 11:43] LABS: INR 1.1 (<1.2); Partial Thromboplastin Time 28.8 sec (22.0-30.0); Prothrombin Time 11.7 sec (10.0-12.5)
[2023-09-03] MEDS: VANCOMYCIN 1,750 MG in SODIUM CHLORIDE 0.9% 500 ML 500 ML IVPB ONE (12:01)
--- NOTE | 2023-09-03 12:04 | XR ---
EXAMINATION TYPE: XR foot complete 3 views LT DATE OF EXAM: 09/03/2023 Comparison: None Clinical History: 57-year-old male pain and wounds to the left foot, assess for Osteomyelitis Findings: There is a soft tissue wound overlying the lateral aspect of the fifth metatarsal head. Some small fo ci of soft tissue air are present here. There seems to be another wound along the medial midfoot. No underlying lytic osseous destruction is identified. Mild generalized soft tissue swelling. No acute f racture, subluxation, dislocation. Impression: 1. Soft tissue wound lateral to the fifth metatarsal head. Small foci of soft tissue air are present in this region. Correlate to exclude infection with gas-forming organism. 2. Suggestion of an additional wound medial midfoot. 3. No radiographic evidence for an underlying contiguous osteomyelitis at this time.
[2023-09-03] MEDS: SODIUM CHLORIDE 0.9% 1,000 ML IV ONE (12:10)
[2023-09-03] MEDS ORDERED: ONDANSETRON 4 MG/2 ML VIAL IVP PRN (13:29)
[2023-09-03] MEDS ORDERED: NALOXONE 0.4 MG/ML 1 ML VIAL IV PRN (13:29)
[2023-09-03] MEDS: SODIUM CHLORIDE 0.9% 1,000 ML IV SCH (13:47)
[2023-09-03] MEDS ORDERED: LORazepam 1 MG TAB PO PRN (14:05)
[2023-09-03] MEDS ORDERED: chlordiazePOXIDE 25 MG CAP PO PRN ×2 (14:05)
[2023-09-03] MEDS ORDERED: LORazepam 2 MG/ML INJ IV PRN (14:05)
--- NOTE | 2023-09-03 14:07 | P.HPIM ---
History of Present Illness H&P Date: 09/03/23 Chief Complaint: Foot pain, ulcer * 57-year-old gentleman with past medical history significant for duodenal ulcer, history of gastrointestinal bleed, peripheral arterial disease history of s/p right femoral endarterectomy, right SFA and profunda embolectomy 2016, history of colon diverticulosis, history of COPD, alcohol use, history of depression presents to the emergency department with complaints of wound noted on his foot for approximately 8 months. Patient said he has been using topical antibiotic however recently patient has noted that the wound was getting worse. Patient states that for approximately 1 week he has not removed his socks and decided to come to the emergency since patient was unable to walk. Patient does endorse that he has history of arterial disease however denies history of diabetes. Workup initiated in ER included CBC which showed WBC of 10.7 hemoglobin 12.6 platelet count of 329 * Chemistry obtained in ER showed sodium of 119, potassium 4.2, dioxide 21 BUN 10 creatinine 0.53 * X-ray obtained in ER showed soft tissue wound lateral to the fifth metatarsal head.. Further evaluation ordered including CT foot * Patient started on IV Zosyn and vancomycin admitted to medical floor REVIEW OF SYSTEMS: Foot pain, ulcer nonhealing CONSTITUTIONAL: No fever, no malaise, no fatigue. HEENT: No recent visual problems or hearing problems. Denied any sore throat. CARDIOVASCULAR: No chest pain, orthopnea, PND, no palpitations, no syncope. PULMONARY: No shortness of breath, no cough, no hemoptysis. GASTROINTESTINAL: No diarrhea, no nausea, no vomiting, no abdominal pain. NEUROLOGICAL: No headaches, no weakness, no numbness. HEMATOLOGICAL: Denies any bleeding or petechiae. GENITOURINARY: Denies any burning micturition, frequency, or urgency. MUSCULOSKELETAL/RHEUMATOLOGICAL: Denies any joint pain, swelling, or any muscle pain. ENDOCRINE: Denies any polyuria or polydipsia. PHYSICAL EXAMINATION: GENERAL: The patient is alert and oriented x3,, chronic ill-appearing HEENT: Pupils are round and equally reacting to light. EOMI. No scleral icterus. CARDIOVASCULAR: S1 and S2 present. No murmurs, rubs, or gallops. PULMONARY: Chest is clear to auscultation, no wheezing or crackles. ABDOMEN: Soft, nontender, nondistended, normoactive bowel sounds. No palpable organomegaly. MUSCULOSKELETAL: No joint swelling or deformity. EXTREMITIES: Bilateral lower extremity edema NEUROLOGICAL: Gross neurological examination did not reveal any focal deficits. SKIN: Left lower extremity skin breakdown granulation tissue noted, erythema noted Past Medical History Past Medical History: COPD, Vascular Disorder Additional Past Medical History / Comment(s): PVD, DVT R leg-recent R femoral popliteal bypass at [facility] 02/22/17, History of Any Multi-Drug Resistant Organisms: None Reported Past Surgical History: Orthopedic Surgery Additional Past Surgical History / Comment(s): R fem pop bypass 02/22/17 [facility], bilateral knee arthroscopic surgeries. Past Anesthesia/Blood Transfusion Reactions: No Reported Reaction Additional Past Anesthesia/Blood Transfusion Reaction / Comment(s): Pt is currently receiving blood-no reaction at this time. Past Psychological History: Anxiety, Depression Smoking Status: Current every day smoker Past Alcohol Use History: Daily, Heavy Past Drug Use History: None Reported - Past Family History Mother Family Medical History: Cancer, Hyperlipidemia Additional Family Medical History / Comment(s): Mother had skin cancer. She is living. Father Family Medical History: Hyperlipidemia, Hypertension Additional Family Medical History / Comment(s): Father has heart condition. Medications and Allergies Home Medications Medication Instructions Recorded Confirmed Type ALPRAZolam [Xanax] 0.5 mg PO HS 02/22/17 09/03/23 History ALPRAZolam [Xanax] 0.25 mg PO DAILY PRN 09/03/23 09/03/23 History Citalopram Hydrobromide [CeleXA] 20 mg PO HS 09/03/23 09/03/23 History Omeprazole 20 mg PO HS 09/03/23 09/03/23 History Allergies Allergy/AdvReac Type Severity Reaction Status Date / Time No Known Allergies Allergy Verified 09/03/23 12:15 Physical Exam Vitals: Vital Signs Temp Pulse Resp BP Pulse Ox 09/03/23 10:51 98.4 F 105 H 18 128/91 97 Intake and Output 09/02/23 09/03/23 09/03/23 22:59 06:59 14:59 Other: Weight 99.79 kg Results CBC & Chem 7: 09/03/23 11:10 09/03/23 11:10 Labs: Abnormal Lab Results - Last 24 Hours (Table) 09/03/23 09/03/23 Range/Units 11:10 11:10 WBC 10.7 H (3.8-10.6) k/uL Hgb 12.6 L (13.0-17.5) gm/dL Hct 36.5 L (39.0-53.0) % Neutrophils # 8.9 H (1.3-7.7) k/uL Lymphocytes # 0.7 L (1.0-4.8) k/uL Sodium 119 L* (137-145) mmol/L Chloride 89 L (98-107) mmol/L Carbon Dioxide 21 L (22-30) mmol/L Creatinine 0.53 L (0.66-1.25) mg/dL Glucose 100 H (74-99) mg/dL Albumin 3.3 L (3.5-5.0) g/dL Assessment and Plan Assessment: Assessment and plan Peripheral arterial disease with nonhealing ulcer left foot Left foot cellulitis rule out osteomyelitis History of peripheral arterial disease with right lower extremity bypass Acute hyponatremia History of gastroesophageal reflux disease Alcohol use Tobacco use * In regards to left foot infection, CT foot ordered, CT angiogram with runoff ordered to evaluate for peripheral arterial disease. Continue Zosyn and vancomycin infectious disease and vascular surgery consulted * Regards to left foot cellulitis continue patient on IV antibiotics. CT foot ordered * Regards to acute hyponatremia, urine analysis including urine osmolality urine sodium ordered serum osmolality ordered continue patient on fluid resu scitation follow-up on electrolyte panel. Nephrology consulted * Regards to gastroesophageal reflux disease continue patient on omeprazole * In regards to peripheral arterial disease continue aspirin and Lipitor * In regards to alcohol use continue patient on CIWA * In regards to DVT prophylaxis continue Lovenox * CODE STATUS is full code Time with Patient: Greater than 30
[2023-09-03] MEDS: oxyCODONE-APAP 5-325MG 1 EACH TAB PO PRN (14:26)
[2023-09-03 15:17] LABS: African American GFR (CKD) >90 (>60 ml/min/1.73 sqM); Anion Gap 8 mmol/L; Blood Urea Nitrogen 9 mg/dL (9-20); Carbon Dioxide 22 mmol/L (22-30); Chloride 92 mmol/L (98-107); Glucose 95 mg/dL (74-99); Non-African American GFR(CKD) >90 (>60 ml/min/1.73 sqM); Potassium 3.9 mmol/L (3.5-5.1); Sodium 122 mmol/L (137-145)
--- NOTE | 2023-09-03 16:04 | CT ---
EXAMINATION TYPE: CT angio abd aorta w/Runoff DATE OF EXAM: 09/03/2023 COMPARISON: 02/22/2017 HISTORY: 57-year-old male PAD, left leg blisters, osteomyelitis TECHNIQUE: Contiguous axial scanning of the abdomen and pelvis performed without IV contrast. Subsequ ently, the patient is injected with 100 mL of Isovue 370 with scanning of the abdomen and pelvis and bilateral lower extremity runoff. Coronal/sagittal reconstructions performed. 3-D reconstructions gen erated on a dedicated independent workstation. CT DLP: 2265.4 mGycm Automated exposure control for dose reduction was used. FINDINGS: Abdomen pelvis: Heart normal size without pericardial effusion. New reticular change and patchy groundglass at the lower lungs especially on the left. Correlate for any symptoms of atypical pneumonia or interstitial pneumonitis. No pleural effusion. No focal liver lesion or biliary ductal dilatation. Portal venous system is patent. Gallbladder, spleen, left kidney, and pancreas within normal limits. Benign 1.8 cm cortical cyst posterior right kidney increased in size from 2017. 8 mm nodularity right adrenal gland is unchanged. Mild diffuse thickening of the left adrenal gland i s unchanged. No dilated small bowel, free fluid, or free air. No mesenteric or retroperitoneal adenopathy. Left-sided colonic diverticulosis without pericolonic inflammatory change. Normal appendix. Bladder is urine distended. No abnormal fluid collection in pelvis or pelvic lymphadenopathy. Bones: Moderate spondylotic change throughout the lumbar spine with degenerative grade 1 spondylolisthesis L 1-L2, L2-L3, L3-L4, L4-L5. Hypertrophic facet arthropathy is also present. Vasculature: The celiac axis and SMA are patent. Mild atherosclerotic calcification at the proximal renal arteries on both sides. Moderate apical scarring distal abdominal aorta. Right: Moderate atherosclerotic calcifications throughout the right iliac arteries, severe stenosis proximal right external iliac artery. JACKAROO is patent. Nonvisualization of the PFA. There is a previously occluded SFA stent along with a femoral bypass graft which remains patent cours ing medially to anastomose with the popliteal artery. Pronounced generalized soft tissue swelling at the thigh. Moderate to severe atherosclerotic irregularity of a diminutive mid to distal popliteal artery. There is prominent venous contamination limiting assessment of the trifurcation vessels. Some flow is noted within the diminutive anterior and posterior tibial arteries though with scattered moderate at herosclerotic changes throughout. Peroneal artery not clearly seen. Left: Segmental moderate stenoses left common and external iliac arteries. Severe stenoses and subtotal occlusions left common femoral artery. There is a patent PFA but occlusion of the SFA and continued severe atherosclerotic calcifications wi thin the popliteal artery and trifurcation vessels. Some minimal faint enhancement is noted within th e anterior tibial artery. Posterior tibial and peroneal arteries are not well seen. Pronounced generalized soft tissue swelling especially of the leg, ankle, and foot. Soft tissue ulcer ation lateral to the fifth metatarsal head and medial midfoot. IMPRESSION: Right: 1. SEVERE FOCAL STENOSIS PROXIMAL EXTERNAL ILIAC ARTERY. 2. NONVISUALIZATION OF THE PFA WITH PREVIOUSLY OCCLUDED SFA STENT. 3. PATENT FEMORAL TO POPLITEAL BYPASS GRAFT. HOWEVER, THERE IS [id number] ATHEROSCLEROTIC IRR EGULARITY OF THE POPLITEAL ARTERY AFTER THE DISTAL ANASTOMOSIS. 4. THERE IS ALSO PROMINENT VENOUS CONTAMINATION LIMITING ASSESSMENT OF THE TRIFURCATION VESSELS. SOME FLOW IS NOTED WITHIN DIMINUTIVE ANTERIOR AND POSTERIOR TIBIAL ARTERIES WITH SCATTERED MODERATE ATHER OSCLEROTIC CHANGES THROUGHOUT. PERONEAL ARTERY NOT CLEARLY SEEN. LEFT: 5. MODERATE SEGMENTAL STENOSES COMMON AND EXTERNAL ILIAC ARTERIES BUT WITH SEVERE STENOSES AND SUBTOT AL OCCLUSIONS LEFT JACKAROO. 6. PATENT PFA BUT WITH LONG SEGMENT SFA OCCLUSION. SEVERE ATHEROSCLEROTIC CHANGES CONTINUE INTO THE P OPLITEAL ARTERY AND TRIFURCATION VESSELS. 7. ARTERIAL OCCLUSION EXTENDS DOWN TO AT LEAST THE TIBIOPERONEAL TRUNK. SOME MINIMAL FAINT ENHANCEMEN T IS NOTED WITHIN THE ANTERIOR TIBIAL ARTERY. POSTERIOR TIBIAL AND PERONEAL ARTERIES ARE NOT SEEN. ABDOMEN PELVIS: 8. NEW PATCHY GROUNDGLASS CHANGE IN THE LOWER LUNGS ESPECIALLY ON THE LEFT. CORRELATE FOR ANY SYMPTOM S OF INFECTION OR ASPIRATION PNEUMONITIS.
[2023-09-03] MEDS: HYDROmorphone 1 MG/ML 1 ML SYRINGE IVP PRN (16:22)
[2023-09-03] MEDS: ASPIRIN 81 MG PO SCH (16:22)
[2023-09-03] MEDS: PIPERACILLIN-TAZOBACTAM 3.375 GM in SODIUM CHLORIDE 0.9% 100 ML IVPB SCH (16:41)
[2023-09-03 19:22] LABS: African American GFR (CKD) >90 (>60 ml/min/1.73 sqM); Anion Gap 5 mmol/L; Blood Urea Nitrogen 9 mg/dL (9-20); Calcium 7.8 mg/dL (8.4-10.2); Carbon Dioxide 23 mmol/L (22-30); Chloride 94 mmol/L (98-107); Glucose 112 mg/dL (74-99); Non-African American GFR(CKD) >90 (>60 ml/min/1.73 sqM); Potassium 3.7 mmol/L (3.5-5.1); Sodium 122 mmol/L (137-145)
[2023-09-03] MEDS: PANTOPRAZOLE 40 MG TABLET PO SCH (21:14)
[2023-09-03] MEDS: ALPRAZolam 0.5 MG TAB PO SCH (21:14)
[2023-09-03] MEDS: CITALOPRAM HYDROBROMIDE 20 MG TAB PO SCH (21:14)
[2023-09-03] MEDS: ATORVASTATIN 40 MG TAB PO SCH (21:14)
[2023-09-03] MEDS: VANCOMYCIN 1,750 MG in SODIUM CHLORIDE 0.9% 500 ML 500 ML IVPB SCH (21:15)
--- NOTE | 2023-09-03 22:55 | P.CONS ---
History of Present Illness - Reason for Consult Consult date: 09/03/23 Foot infection suspected osteomyelitis Requesting physician: Fredi Wagner - Chief Complaint Worsening wound to the left foot x weeks - History of Present Illness Patient is a 57-year-old male with a past medical history significant for COPD PAD in this patient who did have a previous history of right femoropopliteal bypass at [facility] anxiety depression current everyday smoker apparently the patient did have a wound on the top of his left foot that started about 8 months ago following January 2023 the patient has been taking care of home with Neosporin however the patient recently noticed the left foot also was becoming more discolored clinical complaining of pain to the left foot area is mostly sharp moderate intensity without any radiation patient denies having any fever or chills at home or any foul-smelling drainage no headache or URI symptoms no chest pain shortness of breath or cough no nausea vomiting no abdominal pain or diarrhea patient on presentation to the hospital was afebrile and no fever have recorded subsequently patient was not tachycardic hypotensive or hypoxic did have a white count of 10.7 creatinine was normal liver enzymes normal patient did have x-ray of the foot soft tissue wound lateral to the left fifth metatarsal head small foci of soft tissue air correlate to exclude infection with a gas-forming organism patient also have a CT angiography moderate segmental stenosis, and external iliac arteries but with severe stenosis and subtotal occlusion of the left [employer] patient has been admitted to the hospital started on vancomycin and Zosyn infectious disease was consulted for further management of antibiotic therapy Review of Systems Positive point and negatives has been mentioned in the HPI, complete review of systems was performed and all other systems are negative Past Medical History Past Medical History: COPD, Vascular Disorder Additional Past Medical History / Comment(s): PVD, DVT R leg-recent R femoral popliteal bypass at [facility] 02/22/17, History of Any Multi-Drug Resistant Organisms: None Reported Past Surgical History: Orthopedic Surgery Additional Past Surgical History / Comment(s): R fem pop bypass 02/22/17 [facility], bilateral knee arthroscopic surgeries. Past Anesthesia/Blood Transfusion Reactions: No Reported Reaction Additional Past Anesthesia/Blood Transfusion Reaction / Comm: Pt is currently receiving blood-no reaction at this time. Past Psychological History: Anxiety, Depression Smoking Status: Current every day smoker Past Alcohol Use History: Daily, Heavy Past Drug Use History: None Reported - Past Family History Mother Family Medical History: Cancer, Hyperlipidemia Additional Family Medical History / Comment(s): Mother had skin cancer. She is living. Father Family Medical History: Hyperlipidemia, Hypertension Additional Family Medical History / Comment(s): Father has heart condition. Medications and Allergies Home Medications Medication Instructions Recorded Confirmed Type Omeprazole 20 mg PO HS 09/03/23 09/03/23 History Acetaminophen Tab [Tylenol] 650 mg PO Q6HR PRN tab 09/10/23 Rx Ampicillin Sodium/Sulbactam Na 3 gm IV Q6H 21 Days each 09/10/23 Rx [Unasyn 3 gm Vial] Aspirin 81 mg PO DAILY tab 09/10/23 Rx Atorvastatin [Lipitor] 40 mg PO HS tab 09/10/23 Rx Citalopram Hydrobromide [CeleXA] 40 mg PO HS tab 09/10/23 Rx Collagenase [Santyl Ointment] 1 applic TOPICAL DAILY each 09/10/23 Rx Melatonin 5 mg PO HS PRN #10 tab 09/10/23 Rx Mirtazapine [Remeron] 15 mg PO HS tab 09/10/23 Rx Tamsulosin [Flomax] 0.4 mg PO PC-BRKFST #30 cap 09/10/23 Rx ALPRAZolam [Xanax] 0.5 mg PO HS PRN #3 tab 09/19/23 Rx Furosemide [Lasix] 40 mg PO DAILY #30 tab 09/19/23 Rx Metoprolol Succinate (ER) [Toprol 25 mg PO DAILY #30 tab 09/19/23 Rx XL] Potassium Chloride ER [K-Dur 10] 10 meq PO DAILY #30 tab 09/19/23 Rx Rivaroxaban [Xarelto] 2.5 mg PO BID #60 tab 09/19/23 Rx Thiamine [Vitamin B-1] 100 mg PO DAILY #30 tab 09/19/23 Rx oxyCODONE-APAP 5-325MG [Percocet 1 tab PO Q8H PRN 3 Days #4 tab 09/19/23 Rx 5-325 mg] Allergies Allergy/AdvReac Type Severity Reaction Status Date / Time No Known Allergies Allergy Verified 09/04/23 15:37 Physical Exam Vitals: Vital Signs Temp Pulse Resp BP Pulse Ox 09/03/23 15:18 80 18 134/81 97 09/03/23 10:51 98.4 F 105 H 18 128/91 97 Intake and Output 09/03/23 09/03/23 09/03/23 06:59 14:59 22:59 Output Total 750 Balance -750 Output: Urine 750 Uretheral (Stearns) 750 Other: Weight 99.79 kg GENERAL DESCRIPTION: Middle-aged male lying in bed, no distress. No tachypnea or accessory muscle of respiration use. HEENT: Shows Pallor , no scleral icterus. Oral mucous membrane is dry. No pharyngeal erythema or thrush NECK: Trachea central, no thyromegaly. LUNGS: Unlabored breathing. Clear to auscultation anteriorly. No wheeze or crackle. HEART: S1, S2, regular rate and rhythm. No loud murmur ABDOMEN: Soft, no tenderness , guarding or rigidity, no organomegaly EXTREMITIES: Significant wound to the left foot with excoriation and necrotic tissue along with redness SKIN: No rash, no masses palpable. NEUROLOGICAL: The patient is awake, alert, oriented x3, mood and affect normal. Results CBC & Chem 7: 09/19/23 08:33 09/19/23 08:33 Labs: Abnormal Lab Results - Last 24 Hours (Table) 09/03/23 09/03/23 09/03/23 Range/Units 11:10 11:10 14:53 WBC 10.7 H (3.8-10.6) k/uL Hgb 12.6 L (13.0-17.5) gm/dL Hct 36.5 L (39.0-53.0) % Neutrophils # 8.9 H (1.3-7.7) k/uL Lymphocytes # 0.7 L (1.0-4.8) k/uL Sodium 119 L* 122 L (137-145) mmol/L Chloride 89 L 92 L (98-107) mmol/L Carbon Dioxide 21 L (22-30) mmol/L Creatinine 0.53 L 0.57 L (0.66-1.25) mg/dL Glucose 100 H (74-99) mg/dL Calcium 8.0 L (8.4-10.2) mg/dL Albumin 3.3 L (3.5-5.0) g/dL Assessment and Plan (1) Cellulitis of left foot Status: Acute Code(s): L03.116 - CELLULITIS OF LEFT LOWER LIMB SNOMED Code(s): 05263765636332769 (2) Infected wound Status: Acute Code(s): T14.8XXA - OTHER INJURY OF UNSPECIFIED BODY REGION, INITIAL ENCOUNTER; L08.9 - LOCAL INFECTION OF THE SKIN AND SUBCUTANEOUS TISSUE, UNSP SNOMED Code(s): 00152793 (3) Non-pressure chronic ulcer of other part of left foot with necrosis of bone Status: Acute Code(s): L97.524 - NON-PRS CHRONIC ULCER OTH PRT LEFT FOOT W NECROSIS OF BONE SNOMED Code(s): 11919196011776074 Plan: 1-1patient is a 57-year-old male past medical history significant for PAD in this patient current smoker presented to hospital with extensive infection/wound to the left foot area likely component of ischemia with secondary cellulitis 2-we will check inflammatory markers 3-await vascular surgeon evaluation regarding debridement and deep culture 4-continue with the vancomycin however discontinue Zosyn and start the patient on Unasyn to decrease risk of nephrotoxicity We will follow on clinical condition and cultures to further adjust medication if needed Thank you for this consultation we will follow the patient along with you Dictation was produced using [employer] dictation software. please excuse any grammatical, word or spelling errors.
[2023-09-04] MEDS: AMPICILLIN-SULBACTAM 3 GM in SODIUM CHLORIDE 0.9% 100 ML IVPB SCH (00:37)
[2023-09-04 01:35] LABS: African American GFR (CKD) >90 (>60 ml/min/1.73 sqM); Blood Urea Nitrogen 8 mg/dL (9-20); Calcium 7.8 mg/dL (8.4-10.2); Carbon Dioxide 22 mmol/L (22-30); Chloride 98 mmol/L (98-107); Glucose 81 mg/dL (74-99); Non-African American GFR(CKD) >90 (>60 ml/min/1.73 sqM)
[2023-09-04 02:19] LABS: Anion Gap 3 mmol/L; Sodium 123 mmol/L (137-145)
[2023-09-04 06:58] LABS: Basophils # (A) 0.1 k/uL (0-0.2); Basophils % (A) 1 %; Eosinophils # (A) 0.1 k/uL (0-0.7); Eosinophils % (A) 1 %; HCT 36.3 % (39.0-53.0); HGB 12.2 gm/dL (13.0-17.5); Lymphocytes # (A) 0.7 k/uL (1.0-4.8); Lymphocytes % (A) 8 %; MCH 28.6 pg (25.0-35.0); MCHC 33.5 g/dL (31.0-37.0); MCV 85.1 fL (80.0-100.0); Mean Platelet Volume 7.4; Monocytes # (A) 0.6 k/uL (0-1.0); Monocytes % (A) 7 %; Neutrophils # (A) 7.3 k/uL (1.3-7.7); Neutrophils % (A) 83 %; Platelet Count 226 k/uL (150-450); RBC 4.26 m/uL (4.30-5.90); RDW 12.7 % (11.5-15.5); WBC 8.8 k/uL (3.8-10.6)
[2023-09-04 07:10] LABS: Anion Gap 6 mmol/L; Blood Urea Nitrogen 7 mg/dL (9-20); Carbon Dioxide 21 mmol/L (22-30); Chloride 100 mmol/L (98-107); Glucose 83 mg/dL (74-99); Potassium 3.9 mmol/L (3.5-5.1); Sodium 127 mmol/L (137-145)
[2023-09-04] MEDS: THIAMINE 100 MG TAB PO SCH (08:42)
[2023-09-04] MEDS: ENOXAPARIN 40 MG/0.4 ML SYRINGE SQ SCH (08:42)
[2023-09-04] MEDS: ALPRAZolam 0.25 MG TAB PO PRN (10:12)
--- NOTE | 2023-09-04 11:11 | P.NPCON ---
History of Present Illness - Reason for Consult hyponatremia - History of Present Illness Reason for consultation: Hyponatremia History of present illness: Patient is a 57-year-old male seen in renal consultation for hyponatremia. Patient came to the hospital due to left foot wound. Patient states it started with a scratch about 8 to 9 months ago for which she never seek medical care. It progressively got worse. Patient has history of peripheral arterial disease with stenting in the past. Patient denies history of diabetes. Denies history of coronary artery disease. Does admit to taking Motrin on a daily basis for the last few days. He does admit to drinking 3 to 4 cans of beer daily, 20 to 30 ounces of water and 2 cans of pop on a daily basis. Patient states oral intake has been just fair. He denies history of malignancy. Denies use of diuretics. He did receive 2 L of normal saline bolus on admission. He was on normal saline but is currently off fluids. Sodium level was 119 on admission on September 03, 2023 at 11 AM and is up to 127 this morning. He has a Stearns catheter for urinary retention. Denies history of kidney disease. GFR at baseline. Vital signs are stable. General: No acute distress. HEENT: Head exam is unremarkable. LUNGS: No audible rhonchi or wheezes. HEART: Rate and Rhythm are regular. ABDOMEN: Nontender. EXTREMITITES: Trace edema. Left foot wound and discoloration noted. Past Medical History Past Medical History: COPD, Vascular Disorder Additional Past Medical History / Comment(s): PVD, DVT R leg-recent R femoral popliteal bypass at [facility] 02/22/17, History of Any Multi-Drug Resistant Organisms: None Reported Past Surgical History: Orthopedic Surgery Additional Past Surgical History / Comment(s): R fem pop bypass 02/22/17 [facility], bilateral knee arthroscopic surgeries. Past Anesthesia/Blood Transfusion Reactions: No Reported Reaction Additional Past Anesthesia/Blood Transfusion Reaction / Comment(s): Pt is currently receiving blood-no reaction at this time. Past Psychological History: Anxiety, Depression Smoking Status: Current every day smoker Past Alcohol Use History: Daily, Heavy Past Drug Use History: None Reported - Past Family History Mother Family Medical History: Cancer, Hyperlipidemia Additional Family Medical History / Comment(s): Mother had skin cancer. She is living. Father Family Medical History: Hyperlipidemia, Hypertension Additional Family Medical History / Comment(s): Father has heart condition. Medications and Allergies Home Medications Medication Instructions Recorded Confirmed Type ALPRAZolam [Xanax] 0.5 mg PO HS 02/22/17 09/03/23 History ALPRAZolam [Xanax] 0.25 mg PO DAILY PRN 09/03/23 09/03/23 History Citalopram Hydrobromide [CeleXA] 20 mg PO HS 09/03/23 09/03/23 History Omeprazole 20 mg PO HS 09/03/23 09/03/23 History Allergies Allergy/AdvReac Type Severity Reaction Status Date / Time No Known Allergies Allergy Verified 09/03/23 12:15 Physical Exam Vitals: Vital Signs Temp Pulse Pulse Resp BP BP Pulse Ox 09/04/23 08:00 97.5 F L 65 17 136/75 93 L 09/04/23 01:30 97.5 F L 69 18 120/71 91 L 09/03/23 20:23 97.5 F L 74 18 120/72 97 09/03/23 18:41 71 18 101/75 98 09/03/23 18:26 72 18 99/70 96 09/03/23 16:40 75 18 121/82 98 09/03/23 15:18 80 18 134/81 97 Intake and Output 09/03/23 09/04/23 09/04/23 22:59 06:59 14:59 Intake Total 1600 Output Total 750 1000 1500 Balance -750 -1000 100 Intake: Intake, IV Titration 1600 Amount Ampicillin-Sulbactam 3 gm 200 In Sodium Chloride 0.9% 100 ml @ 200 mls/hr IVPB Q6HR OLVIN Rx#:[id number] Sodium Chloride 0.9% 1, 900 000 ml @ 75 mls/hr IV . [id number] OLVIN Rx#:[id number] Vancomycin 1,750 mg In 500 Sodium Chloride 0.9% 500 ml 500 ml @ 167 mls/hr IVPB Q8H OLVIN Rx#: [id number] Output: Urine 750 1000 1500 Uretheral (Stearns) 750 Other: Voiding Method Indwelling Catheter Indwelling Catheter Weight 99.79 kg Results - Lab Results Most recent lab results Calcium 8.0 mg/dL (8.4-10.2) L 09/04/23 06:28 09/04/23 06:28 09/04/23 06:28 Assessment and Plan Plan: Assessment: 1. Hyponatremia from poor solute intake and excessive fluid intake. Also component of NSAID use. Urine sodium less than 20 and urine osmolality 312. Improved with IV hydration. TSH normal. Sodium level of 127 this morning. 2. Left foot wound on antibiotics. Culture positive for gram-negative bacilli. Infectious disease and vascular surgery following. 3. Peripheral arterial disease with prior stenting. 4. Urinary retention status post Stearns catheter placement. Plan: Maintain off IV fluids. Add Flomax. Encouraged oral intake. Repeat labs in the morning. Thank you for the consultation. I will continue to follow the patient with you during his hospital stay.
[2023-09-04] MEDS: IV FLUID CONTINUATION 1,000 ML IV ONE ×2 (11:52→15:42)
--- NOTE | 2023-09-04 12:01 | P.GSCN ---
History of Present Illness Consult date: 09/04/23 Reason for Consult: Peripheral arterial disease, left foot wound Requesting physician: Fredi Wagner History of present illness: On this is a pleasant 57-year-old male who presented to the emergency department concern for left foot wound. States that the foot wound began back in December 2022 was a spot the size of a quarter. He states he was putting Neosporin on it the wound had improved. And then it came back and started spreading back in June 2023. He has not had insurance and has not been following with anyone. Wound has been progressively getting worse with redness up his leg and pain. He has a past medical history including peripheral arterial disease status post stent and right femoral to below the knee bypass [place] [address] Chairez. He has not followed with anybody recently. He had a CT angiogram abdominal aorta with runoff, left lower extremity with significant peripheral arterial d isease with only about 20% of flow down the left leg. X-ray of the foot is showing air and possible gas formation. Patient states that he does have pain in that left foot. Denies any shortness of breath, chest pain, abdominal pain, nausea or vomiting. No fevers or chills. He was started on IV vancomycin and Unasyn. Patient also currently here on suicide precautions Review of Systems A 14 point review systems was completed all pertinent positives and negatives as stated in the HPI. Past Medical History Past Medical History: COPD, Vascular Disorder Additional Past Medical History / Comment(s): PVD, DVT R leg-recent R femoral popliteal bypass at [facility] 02/22/17, History of Any Multi-Drug Resistant Organisms: None Reported Past Surgical History: Orthopedic Surgery Additional Past Surgical History / Comment(s): R fem pop bypass 02/22/[address] [facility], bilateral knee arthroscopic surgeries. Past Anesthesia/Blood Transfusion Reactions: No Reported Reaction Additional Past Anesthesia/Blood Transfusion Reaction / Comm: Pt is currently receiving blood-no reaction at this time. Past Psychological History: Anxiety, Depression Smoking Status: Current every day smoker Past Alcohol Use History: Daily, Heavy Past Drug Use History: None Reported - Past Family History Mother Family Medical History: Cancer, Hyperlipidemia Additional Family Medical History / Comment(s): Mother had skin cancer. She is living. Father Family Medical History: Hyperlipidemia, Hypertension Additional Family Medical History / Comment(s): Father has heart condition. Medications and Allergies Home Medications Medication Instructions Recorded Confirmed Type ALPRAZolam [Xanax] 0.5 mg PO HS 02/22/17 09/03/23 History ALPRAZolam [Xanax] 0.25 mg PO DAILY PRN 09/03/23 09/03/23 History Citalopram Hydrobromide [CeleXA] 20 mg PO HS 09/03/23 09/03/23 History Omeprazole 20 mg PO HS 09/03/23 09/03/23 History Allergies Allergy/AdvReac Type Severity Reaction Status Date / Time No Known Allergies Allergy Verified 09/03/23 12:15 Surgical - Exam Vital Signs Temp Pulse Resp BP Pulse Ox 98.4 F 105 H 18 128/91 97 09/03/23 10:51 09/03/23 10:51 09/03/23 10:51 09/03/23 10:51 09/03/23 10:51 General appearance: The patient is alert, oriented, appears in no acute distress. HET: Head is normocephalic and atraumatic. Pupils are equal and reactive. Neck: Supple. Heart: Regular. Lungs: Equal expansion, normal respiratory effort. Abdomen: Soft, nontender, nondistended. Extremities: Palpable bilateral radial pulses. Left lower extremity wound or all dorsal aspect of left foot ankle and at the distal end of rivera with maxim rounding erythema and drainage. Neurological: No focal deficits. Strength and sensation are grossly intact. Results - Labs 09/04/23 06:28 09/04/23 06:28 Abnormal Lab Results - Last 24 Hours (Table) 09/03/23 09/03/23 09/03/23 Range/Units 13:26 13:26 13:26 RBC (4.30-5.90) m/uL Hgb (13.0-17.5) gm/dL Hct (39.0-53.0) % Lymphocytes # (1.0-4.8) k/uL Sodium (137-145) mmol/L Chloride (98-107) mmol/L Carbon Dioxide (22-30) mmol/L BUN (9-20) mg/dL Creatinine (0.66-1.25) mg/dL Glucose (74-99) mg/dL Osmolality 248 A* (275-295) mOsm/kg Calcium (8.4-10.2) mg/dL Urine Osmolality 312 L (400-1100) mOsm/kg Ur Random Sodium <20 L (40-220) mmol/L 09/03/23 09/03/23 09/04/23 Range/Units 14:53 18:59 01:02 RBC (4.30-5.90) m/uL Hgb (13.0-17.5) gm/dL Hct (39.0-53.0) % Lymphocytes # (1.0-4.8) k/uL Sodium 122 L 122 L 123 L (137-145) mmol/L Chloride 92 L 94 L (98-107) mmol/L Carbon Dioxide (22-30) mmol/L BUN 8 L (9-20) mg/dL Creatinine 0.57 L 0.61 L 0.56 L (0.66-1.25) mg/dL Glucose 112 H (74-99) mg/dL Osmolality (275-295) mOsm/kg Calcium 8.0 L 7.8 L 7.8 L (8.4-10.2) mg/dL Urine Osmolality (400-1100) mOsm/kg Ur Random Sodium (40-220) mmol/L 09/04/23 09/04/23 Range/Units 06:28 06:28 RBC 4.26 L (4.30-5.90) m/uL Hgb 12.2 L (13.0-17.5) gm/dL Hct 36.3 L (39.0-53.0) % Lymphocytes # 0.7 L (1.0-4.8) k/uL Sodium 127 L (137-145) mmol/L Chloride (98-107) mmol/L Carbon Dioxide 21 L (22-30) mmol/L BUN 7 L (9-20) mg/dL Creatinine (0.66-1.25) mg/dL Glucose (74-99) mg/dL Osmolality (275-295) mOsm/kg Calcium 8.0 L (8.4-10.2) mg/dL Urine Osmolality (400-1100) mOsm/kg Ur Random Sodium (40-220) mmol/L Microbiology - Last 24 Hours (Table) 09/03/23 11:10 Gram Stain - Preliminary Foot - Left Wound Culture - Preliminary Gram Neg Bacilli Diabetes panel 02/26/24 02/26/24 02/26/24 Range/Units 11:10 14:53 18:59 Sodium 122 L 122 L (137-145) mmol/L Potassium 3.9 3.7 (3.5-5.1) mmol/L Chloride 92 L 94 L (98-107) mmol/L Carbon Dioxide 22 23 (22-30) mmol/L BUN 9 9 (9-20) mg/dL Creatinine 0.57 L 0.61 L (0.66-1.25) mg/dL Glucose 95 112 H (74-99) mg/dL Hemoglobin A1c 5.4 (<=6.0) % Calcium 8.0 L 7.8 L (8.4-10.2) mg/dL 09/04/23 09/04/23 Range/Units 01:02 06:28 Sodium 123 L 127 L (137-145) mmol/L Potassium 4.0 3.9 (3.5-5.1) mmol/L Chloride 98 100 (98-107) mmol/L Carbon Dioxide 22 21 L (22-30) mmol/L BUN 8 L 7 L (9-20) mg/dL Creatinine 0.56 L ENVIRONMENTAL AUDITOR (0.66-1.25) mg/dL Glucose 81 83 (74-99) mg/dL Hemoglobin A1c (<=6.0) % Calcium 7.8 L 8.0 L (8.4-10.2) mg/dL Thyroid panel 09/04/23 Range/Units 06:28 TSH 3.010 (0.465-4.680) mIU/L Calcium panel 09/03/23 09/03/23 09/04/23 Range/Units 14:53 18:59 01:02 Calcium 8.0 L 7.8 L 7.8 L (8.4-10.2) mg/dL 09/04/23 Range/Units 06:28 Calcium 8.0 L (8.4-10.2) mg/dL Pituitary panel 09/03/23 09/03/23 09/04/23 Range/Units 14:53 18:59 01:02 Sodium 122 L 122 L 123 L (137-145) mmol/L Potassium 3.9 3.7 4.0 (3.5-5.1) mmol/L Chloride 92 L 94 L 98 (98-107) mmol/L Carbon Dioxide 22 23 22 (22-30) mmol/L BUN 9 9 8 L (9-20) mg/dL Creatinine 0.57 L 0.61 L 0.56 L (0.66-1.25) mg/dL Glucose 95 112 H 81 (74-99) mg/dL Calcium 8.0 L 7.8 L 7.8 L (8.4-10.2) mg/dL TSH (0.465-4.680) mIU/L 09/04/23 Range/Units 06:28 Sodium 127 L (137-145) mmol/L Potassium 3.9 (3.5-5.1) mmol/L Chloride 100 (98-107) mmol/L Carbon Dioxide 21 L (22-30) mmol/L BUN 7 L (9-20) mg/dL Creatinine ENVIRONMENTAL AUDITOR (0.66-1.25) mg/dL Glucose 83 (74-99) mg/dL Calcium 8.0 L (8.4-10.2) mg/dL TSH 3.010 (0.465-4.680) mIU/L Adrenal panel 09/03/23 09/03/23 09/04/23 Range/Units 14:53 18:59 01:02 Sodium 122 L 122 L 123 L (137-145) mmol/L Potassium 3.9 3.7 4.0 (3.5-5.1) mmol/L Chloride 92 L 94 L 98 (98-107) mmol/L Carbon Dioxide 22 23 22 (22-30) mmol/L BUN 9 9 8 L (9-20) mg/dL Creatinine 0.57 L 0.61 L 0.56 L (0.66-1.25) mg/dL Glucose 95 112 H 81 (74-99) mg/dL Calcium 8.0 L 7.8 L 7.8 L (8.4-10.2) mg/dL 09/04/23 Range/Units 06:28 Sodium 127 L (137-145) mmol/L Potassium 3.9 (3.5-5.1) mmol/L Chloride 100 (98-107) mmol/L Carbon Dioxide 21 L (22-30) mmol/L BUN 7 L (9-20) mg/dL Creatinine ENVIRONMENTAL AUDITOR (0.66-1.25) mg/dL Glucose 83 (74-99) mg/dL Calcium 8.0 L (8.4-10.2) mg/dL - Imaging Comments: CT angiogram abdomen aorta with runoff Right colon severe focal stenosis proximal external iliac artery. Nonvisualization of the PFA with previous occluded SFA stent. Patent femoral to popliteal bypass graft. However there is moderate to severe arthrosclerotic irregularity of the popliteal artery after the distal anastomosis. There is also prominent venous contamination limiting assessment of the trifurcation vessels. Some flow is noted within diminutive anterior and posterior tibial arteries with scattered moderate arthrosclerotic changes throughout. Peroneal artery not clearly seen. Left: Moderate segmental stenosis common and external iliac arteries but with severe stenosis and subtotal occlusion left SUSTAINABILITY DIRECTOR. Patent PFA but with long segment SFA occlusion. Severe arthrosclerotic changes continued to the popliteal artery and trifurcation vessels. Arterial occlusion extends down to at least the tibioperoneal trunk. Some minimal faint enhancement is noted within the anterior tibial artery. Posterior tibial and peroneal arteries are not seen. Abdomen pelvis: New patchy groundglass changes in the lower lung especially on the left. Correlate for any symptoms of infection or aspiration pneumonitis. Left foot x-ray Soft tissue wound lateral to the left metatarsal head. Small foci of soft tissue air are present in this region. Correlate to exclude infection with gas- forming organism. Suggestion of an additional wound medial midfoot. No radiographic evidence for an underlying contigous osteomyelitis at this time. Assessment and Plan Assessment: 1. Chronic right foot/lower extremity wound 2. Cellulitis 3. Left SFA and SUSTAINABILITY DIRECTOR occlusions 4. History of peripheral arterial disease with previous right lower extremity stenting and femoropopliteal bypass 5. Suicidal ideations on suicide watch Plan: 1. Keep n.p.o. for surgery, then n.p.o. after midnight 2. Patient to go to the OR for left foot/lower extremity surgical debridement 3. Patient scheduled for angiogram left lower extremity tomorrow 4. Antibiotics per recommendations from infectious disease 5. Further recommendations forthcoming per vascular surgeon based on angiogram findings Thank you for this consultation, we will continue to follow. The impression and plan of care has been dictated as directed. I performed a history and examination of this patient, discussed the same with the dictator. I agree with the dictator's note ,documented as a scribe. Any additional findings or plans will be noted.
--- NOTE | 2023-09-04 12:11 | P.PN ---
Subjective Progress Note Date: 09/04/23 * 57-year-old gentleman with past medical history significant for duodenal ulcer, history of gastrointestinal bleed, peripheral arterial disease history of s/p right femoral endarterectomy, right SFA and profunda embolectomy 2016, history of colon diverticulosis, history of COPD, alcohol use, history of de pression presents to the emergency department with complaints of wound noted on his foot for approximately 8 months. Patient said he has been using topical antibiotic however recently patient has noted that the wound was getting worse. Patient states that for approximately 1 week he has not remove d his socks and decided to come to the emergency since patient was unable to walk. Patient does endorse that he has history of arterial disease however denies history of diabetes. Workup initiated in ER included CBC which showed WBC of 10.7 hemoglobin 12.6 platelet count of 329 * Chemistry obtained in ER showed sodium of 119, potassium 4.2, dioxide 21 BUN 10 creatinine 0.53 * X-ray obtained in ER showed soft tissue wound lateral to the fifth metatarsal head.. Further evaluation ordered including CT foot * Patient started on IV Zosyn and vancomycin admitted to medical floor * 09/04/23: patient seen and evaluated at bedside, CT angiogram lower extremity reviewed bilateral moderate to severe occlusive disease noted. , vascular surgery consulted. Patient started on aspirin and Lipitor. Appreciate input from Infectious Disease continue patient on IV antibiotic continue with wound care. Patient going for wound debridement made n.p.o. patient made suicidal ideation, continue one-to-one sitter will consult psychiatry REVIEW OF SYSTEMS: Foot pain, ulcer nonhealing CONSTITUTIONAL: No fever, no malaise, no fatigue. HEENT: No recent visual problems or hearing problems. Denied any sore throat. CARDIOVASCULAR: No chest pain, orthopnea, PND, no palpitations, no syncope. PULMONARY: No shortness of breath, no cough, no hemoptysis. GASTROINTESTINAL: No diarrhea, no nausea, no vomiting, no abdominal pain. NEUROLOGICAL: No headaches, no weakness, no numbness. HEMATOLOGICAL: Denies any bleeding or petechiae. GENITOURINARY: Denies any burning micturition, frequency, or urgency. MUSCULOSKELETAL/RHEUMATOLOGICAL: Denies any joint pain, swelling, or any muscle pain. ENDOCRINE: Denies any polyuria or polydipsia. PHYSICAL EXAMINATION: GENERAL: The patient is alert and oriented x3,, chronic ill-appearing HEENT: Pupils are round and equally reacting to light. EOMI. No scleral icterus. CARDIOVASCULAR: S1 and S2 present. No murmurs, rubs, or gallops. PULMONARY: Chest is clear to auscultation, no wheezing or crackles. ABDOMEN: Soft, nontender, nondistended, normoactive bowel sounds. No palpable organomegaly. MUSCULOSKELETAL: No joint swelling or deformity. EXTREMITIES: Bilateral lower extremity edema NEUROLOGICAL: Gross neurological examination did not reveal any focal deficits. SKIN: Left lower extremity skin breakdown granulation tissue noted, erythema noted Objective - Vital Signs Vital signs: Vital Signs Temp 97.5 F L 09/04/23 01:30 Pulse 69 09/04/23 01:30 Resp 18 09/04/23 01:30 BP 120/71 09/04/23 01:30 Pulse Ox 91 L 09/04/23 01:30 FiO2 Intake & Output 09/03/23 09/03/23 09/04/23 06:59 18:59 06:59 Output Total 750 Balance -750 Weight 99.79 kg 99.79 kg Output: Urine 750 Uretheral (Stearns) 750 Other: Voiding Method Indwelling Catheter - Labs CBC & Chem 7: 09/04/23 06:28 09/04/23 06:28 Labs: Abnormal Lab Results - Last 24 Hours (Table) 09/03/23 09/03/23 09/03/23 Range/Units 11:10 11:10 13:26 WBC 10.7 H (3.8-10.6) k/uL Hgb 12.6 L (13.0-17.5) gm/dL Hct 36.5 L (39.0-53.0) % Neutrophils # 8.9 H (1.3-7.7) k/uL Lymphocytes # 0.7 L (1.0-4.8) k/uL Sodium 119 L* (137-145) mmol/L Chloride 89 L (98-107) mmol/L Carbon Dioxide 21 L (22-30) mmol/L BUN (9-20) mg/dL Creatinine 0.53 L (0.66-1.25) mg/dL Glucose 100 H (74-99) mg/dL Osmolality (275-295) mOsm/kg Calcium (8.4-10.2) mg/dL Albumin 3.3 L (3.5-5.0) g/dL Urine Osmolality 312 L (400-1100) mOsm/kg Ur Random Sodium (40-220) mmol/L 09/03/23 09/03/23 09/03/23 Range/Units 13:26 13:26 14:53 WBC (3.8-10.6) k/uL Hgb (13.0-17.5) gm/dL Hct (39.0-53.0) % Neutrophils # (1.3-7.7) k/uL Lymphocytes # (1.0-4.8) k/uL Sodium 122 L (137-145) mmol/L Chloride 92 L (98-107) mmol/L Carbon Dioxide (22-30) mmol/L BUN (9-20) mg/dL Creatinine 0.57 L (0.66-1.25) mg/dL Glucose (74-99) mg/dL Osmolality 248 A* (275-295) mOsm/kg Calcium 8.0 L (8.4-10.2) mg/dL Albumin (3.5-5.0) g/dL Urine Osmolality (400-1100) mOsm/kg Ur Random Sodium <20 L (40-220) mmol/L 09/03/23 09/04/23 Range/Units 18:59 01:02 WBC (3.8-10.6) k/uL Hgb (13.0-17.5) gm/dL Hct (39.0-53.0) % Neutrophils # (1.3-7.7) k/uL Lymphocytes # (1.0-4.8) k/uL Sodium 122 L 123 L (137-145) mmol/L Chloride 94 L (98-107) mmol/L Carbon Dioxide (22-30) mmol/L BUN 8 L (9-20) mg/dL Creatinine 0.61 L 0.56 L (0.66-1.25) mg/dL Glucose 112 H (74-99) mg/dL Osmolality (275-295) mOsm/kg Calcium 7.8 L 7.8 L (8.4-10.2) mg/dL Albumin (3.5-5.0) g/dL Urine Osmolality (400-1100) mOsm/kg Ur Random Sodium (40-220) mmol/L Assessment and Plan Assessment: Assessment and plan Peripheral arterial disease with nonhealing ulcer left foot Left foot cellulitis rule out osteomyelitis History of peripheral arterial disease with right lower extremity bypass Acute hyponatremia Depression with suicidal ideation History of gastroesophageal reflux disease Alcohol use Tobacco use * In regards to left foot infection, CT foot CT angiogram with runoff shows significant peripheral arterial disease. Continue Zosyn and vancomycin, wound debridement * infectious disease and vascular surgery consulted * In Regards to left foot cellulitis continue patient on IV antibiotics. CT scan reviewed * Regards to acute hyponatremia, urine osmolality/ urine sodium Ordered ,serum osmolality 248 , continue patient on fluid resuscitation , follow-up on electrolyte panel. Nephrology consulted * Regards to gastroesophageal reflux disease continue patient on omeprazole * In regards to peripheral arterial disease continue aspirin and Lipitor * Regards to depression, patient made suicidal comments continue to maintain safety precautions continue one-to-one sitter * In regards to alcohol use , continue patient on CIWA protocol * In regards to DVT prophylaxis continue Lovenox * CODE STATUS is full code Time with Patient: Greater than 30
[2023-09-04] MEDS: VANCOMYCIN TROUGH DUE 1 EACH MISC MISCELLANE ONE (12:12)
[2023-09-04] MEDS: TAMSULOSIN 0.4 MG CAP.ER.24H PO SCH (12:18)
--- NOTE | 2023-09-04 15:20 | P.CN ---
Psychiatric Consult - . Consult date: 09/04/23 Consult:: 09/04/23 14:18 IDENTIFYING DATA: This patient is a 57-year-old male, currently lives alone in apartment, he is single unemployed, he has 1 daughter. REASON FOR REFERRAL: Psychiatry was consulted for suicidal ideations HISTORY OF PRESENT ILLNESS: The patient presented to the hospital initially on 09/03 after having a wound on his foot for the past 8 months or so. He states that he has not removed his sock in about a week and he came into the ER. Patient was admitted for foot cellulitis and pain. Hyponatremia sodium was at 119. Patient has vascular surgery on the hansen and he is scheduled to have a debridement today. Patient apparently made suicidal ideations however no specific plan. He is currently on a sitter. He was seen today laying in bed and agreeable to speak to newspaper writer. He states that he has been unable to walk due to the pain and claims that he does not know the cause of the ulcer and foot wound. States that he is in significant amount of pain. Claims that he was in a job last in February 2022. 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 Claims that he was recently having some depression and anxiety, states that he has fleeting suicidal ideations however no intent or plan. Claims that his sleep has been on and off appetite has been fair. He did claim that he does not know how he will take the news if they have to remove his foot. At this time patient denies any homical ideations, intent or plan. Patient denies any auditory, visual hallucinations and denies any paranoia or delusions. Patients admits to using claims that he smokes cigarettes daily. PAST PSYCHIATRIC HISTORY: Patient has a a history of depression, anxiety. Patient is currently on Celexa, Xanax. Patient denies any previous psychiatric hospitalizations. Patient denies any psychiatric outpatient follow-up. Claims that he attempted to cut his wrist when he was 17 years old. Past Medical History: COPD, Vascular Disorder Additional Past Medical History / Comment(s): PVD, DVT R leg-recent R femoral popliteal bypass at [facility] 02/22/17, History of Any Multi-Drug Resistant Organisms: None Reported Past Surgical History: Orthopedic Surgery Additional Past Surgical History / Comment(s): R fem pop bypass 02/22/17 [facility], bilateral knee arthroscopic surgeries. Past Anesthesia/Blood Transfusion Reactions: No Reported Reaction Additional Past Anesthesia/Blood Transfusion Reaction / Comment(s): Pt is currently receiving blood-no reaction at this time. Past Psychological History: Anxiety, Depression Smoking Status: Current every day smoker Past Alcohol Use History: Daily, Heavy Past Drug Use History: None Reported ALLERGIES: as per EMR. CHEMICAL DEPENDENCY HISTORY: as per HPI. FAMILY PSYCHIATRIC/SUBSTANCE USE HISTORY: Denies SOCIAL HISTORY: Patient was born and raised in [facility]. States that he completed high school. States that he has no legal history in the past never been to [facility] or [facility]. States that he has 1 daughter, he is single and unemployed. He lives alone in an apartment.. MENTAL STATUS EXAM: General Appearance: Patient appears to be have severe wound in his left leg, necrosis, stated age is alert, attempts to be cooperative. Patient appears to have fair hygiene and grooming wearing hospital gown with poor eye contact. Behavior: Patient is calmly lying in bed without any agitated behavior. Vague at times Speech: Patient's speech is fluent and nonpressured. Mood/Affect: Patient reports their mood is "depressed and mildly anxious", affect is congruent and constricted Suicidality/Homicidality: Patient denies having any suicidal or homicidal ideation intent or plan. Perceptions: Patient denies any visual hallucinations and denies any auditory hallucinations Though content/process: There is no evidence of any delusional thought content and thought process is linear and goal-directed. [place] Memory and concentration: AOX3, grossly intact for the purposes of this session. Can spell "WORLD" backwards Judgment and insight: Poor IMPRESSIONS: Major depressive disorder Anxiety disorder unspecified Nicotine dependence PLAN: -At this time patient DOES NOT meet criteria for inpatient psychiatric admission. Would recommend the following medication changes/additions: Can continue with Xanax 0.5 mg nightly for anxiety, Celexa increased to dose of 40 mg nightly for mood/anxiety. Added Remeron 7.5 mg nightly for sleep/anxiety/mood. -Continue 1:1 sitter for safety and suicidal thoughts, will look at possibly discontinuing tomorrow if patient is improving. -Director Of Rooms spoke with patient about substance abuse and the harmful effects on medical and mental health, patient verbally understood and agreed. -Communicated plan to patient's nurse -Will continue to follow along tomorrow -Please contact with any questions. 09/04/23 15:14
--- NOTE | 2023-09-04 15:26 | P.PN ---
Subjective Progress Note Date: 09/04/23 Principal diagnosis: Left foot wound and cellulitis Patient is a 57-year-old male with a past medical history significant for COPD PAD in this patient who did have a previous history of right femoropopliteal bypass at [facility] anxiety depression current ever yday smoker presented to the hospital worsening discoloration and wound to the left foot that has been there for couple of months. On today's evaluation that is 09/04/2023,the patient remains to be afebrile, patient is on room air not requiring supplemental oxygen and denies any shortness of breath no chest pain or cough.Patient denies having any nausea or vomiting, no abdominal pain and no diarrhea has been reported, denies any worsening pain to the left foot area. Patient white count at 8.8, creatinine is 0.61, blood culture growing gram- negative Objective - Vital Signs Vital signs: Vital Signs Temp 97.7 F 09/04/23 14:00 Pulse 67 09/04/23 14:00 Resp 16 09/04/23 14:00 BP 126/71 09/04/23 14:00 Pulse Ox 93 L 09/04/23 14:00 FiO2 Intake & Output 09/03/23 09/04/23 09/04/23 18:59 06:59 18:59 Intake Total 1600 Output Total 750 1000 1500 Balance -750 -1000 100 Weight 99.79 kg 99.79 kg 99.79 kg Intake: Intake, IV Titration 1600 Amount Ampicillin-Sulbactam 3 gm 200 In Sodium Chloride 0.9% 100 ml @ 200 mls/hr IVPB Q6HR [facility] Rx#:[id number] Sodium Chloride 0.9% 1, 900 000 ml @ 75 mls/hr IV . [id number] [facility] Rx#:[id number] Vancomycin 1,750 mg In 500 Sodium Chloride 0.9% 500 ml 500 ml @ 167 mls/hr IVPB Q8H [facility] Rx#: [id number] Output: Urine 750 1000 1500 Uretheral (Stearns) 750 Other: Voiding Method Indwelling Catheter Indwelling Catheter - Exam GENERAL DESCRIPTION: Middle-age male lying in bed in no distress RESPIRATORY SYSTEM: Unlabored breathing , decreased breath sounds at bases HEART: S1 S2 regular rate and rhythm , ABDOMEN: Soft , no tenderness EXTREMITIES: Left foot with e discoloration swelling redness no foul-smelling drainage - Labs CBC & Chem 7: 09/04/23 06:28 09/04/23 06:28 Labs: Abnormal Lab Results - Last 24 Hours (Table) 09/03/23 09/03/23 09/03/23 Range/Units 13:26 13:26 13:26 RBC (4.30-5.90) m/uL Hgb (13.0-17.5) gm/dL Hct (39.0-53.0) % Lymphocytes # (1.0-4.8) k/uL Sodium (137-145) mmol/L Chloride (98-107) mmol/L Carbon Dioxide (22-30) mmol/L BUN (9-20) mg/dL Creatinine (0.66-1.25) mg/dL Glucose (74-99) mg/dL Osmolality 248 A* (275-295) mOsm/kg Calcium (8.4-10.2) mg/dL Urine Osmolality 312 L (400-1100) mOsm/kg Ur Random Sodium <20 L (40-220) mmol/L 09/03/23 09/04/23 09/04/23 Range/Units 18:59 01:02 06:28 RBC 4.26 L (4.30-5.90) m/uL Hgb 12.2 L (13.0-17.5) gm/dL Hct 36.3 L (39.0-53.0) % Lymphocytes # 0.7 L (1.0-4.8) k/uL Sodium 122 L 123 L (137-145) mmol/L Chloride 94 L (98-107) mmol/L Carbon Dioxide (22-30) mmol/L BUN 8 L (9-20) mg/dL Creatinine 0.61 L 0.56 L (0.66-1.25) mg/dL Glucose 112 H (74-99) mg/dL Osmolality (275-295) mOsm/kg Calcium 7.8 L 7.8 L (8.4-10.2) mg/dL Urine Osmolality (400-1100) mOsm/kg Ur Random Sodium (40-220) mmol/L 09/04/23 Range/Units 06:28 RBC (4.30-5.90) m/uL Hgb (13.0-17.5) gm/dL Hct (39.0-53.0) % Lymphocytes # (1.0-4.8) k/uL Sodium 127 L (137-145) mmol/L Chloride (98-107) mmol/L Carbon Dioxide 21 L (22-30) mmol/L BUN 7 L (9-20) mg/dL Creatinine (0.66-1.25) mg/dL Glucose (74-99) mg/dL Osmolality (275-295) mOsm/kg Calcium 8.0 L (8.4-10.2) mg/dL Urine Osmolality (400-1100) mOsm/kg Ur Random Sodium (40-220) mmol/L Microbiology - Last 24 Hours (Table) 09/03/23 11:10 Gram Stain - Preliminary Foot - Left Wound Culture - Preliminary Gram Neg Bacilli Assessment and Plan (1) Cellulitis of left foot Current Visit: Yes Status: Acute Code(s): L03.116 - CELLULITIS OF LEFT LOWER LIMB SNOMED Code(s): 93869840652032162 (2) Infected wound Current Visit: Yes Status: Acute Code(s): T14.8XXA - OTHER INJURY OF UNSPECIFIED BODY REGION, INITIAL ENCOUNTER; L08.9 - LOCAL INFECTION OF THE SKIN AND SUBCUTANEOUS TISSUE, UNSP SNOMED Code(s): 56926380 Plan: 1-1patient is a 57-year-old male past medical history significant for PAD in this patient current smoker presented to hospital with extensive infection/wound to the left foot area likely component of ischemia with secondary cellulitis 2-await surgical debridement and deep culture 3patient to continue with the vancomycin and Unasyn while waiting for the culture to finalize Dictation was produced using [employer] dictation software. please excuse any grammatical, word or spelling errors. Time with Patient: Less than 30
[2023-09-04] MEDS ORDERED: LIDOCAINE 1% INJ 10MG/ML (20 ML MDV) ONE (16:11)
[2023-09-04] MEDS ORDERED: PROPOFOL 10 MG/ML 20 ML VIAL IV ONE (16:11)
[2023-09-04] MEDS ORDERED: fentaNYL (PF) 50 MCG/ML 2 ML AMP ONE (16:11)
[2023-09-04] MEDS ORDERED: KETAMINE HCL IN 0.9 % NACL 50 MG/5 ML SYRINGE ONE (16:11)
[2023-09-04] MEDS ORDERED: ePHEDrine 50 MG/ML 1 ML VIAL ONE (16:11)
[2023-09-04] MEDS ORDERED: MIDAZOLAM 2 MG/2 ML VIAL ONE (16:11)
[2023-09-04] MEDS ORDERED: SUCCINYLCHOLINE CHLORIDE 200 MG/10 ML VIAL IV ONE (16:11)
[2023-09-04] MEDS: BACITRACIN ZINC 500 UNIT/GM OINT 28.4 GM TUBE TOPICAL ONE (17:17)
[2023-09-04] MEDS: SODIUM CHLORIDE 0.9% 1,000 ML IV ONE ×2 (17:26)
--- NOTE | 2023-09-04 18:42 | P.OP ---
Date of Procedure: 09/04/23 Preoperative Diagnosis: Left foot gangrene, chronic wound, possible osteomyelitis Postoperative Diagnosis: Left foot wound without evidence of osteomyelitis Procedure(s) Performed: Excisional debridement of left foot wound Anesthesia: LEXYA Surgeon: Marcos Payne Estimated Blood Loss (ml): 10 Pathology: other (wound culture) Condition: stable Disposition: PACU Indications for Procedure: 57 year old gentleman with left chronic foot wound, possible flesh eating bacteria and osteomyelitis presents to the OR for debridement to determine the extent of the wound and future planning for revascularization versus amputation. Operative Findings: Large subcutaneous wound involving the dorsal aspect of the left foot. Wound measured over 20cm x 20 cm with 0.2 cm in depth Description of Procedure: After written and informed consent was obtained and all risks, benefits and complications were described the patient was brought to the operative suite and laid in a supine position. The area of the left foot was prepped and draped in the usual sterile fashion. Timeout was performed in usual fashion. Using a 10 blade scalpel and currette the foot was debrided down to the subcutaneous tissue and fascia. Some purulent drainage noted from the 5th metatarsal aspect of the foot which was cultured. No bone was exposed. The wound was irrigated with antibiotics solution and then dressed with Bacitracin, 4x4, ABD pads and Kerlix. The patient tolerated the procedure well and was sent to PACU for recovery.
[2023-09-04] MEDS: CITALOPRAM HYDROBROMIDE 20 MG TAB PO SCH (21:34)
[2023-09-04] MEDS: MIRTAZAPINE 15 MG TAB PO SCH (21:34)
[2023-09-05 06:39] LABS: African American GFR (CKD) >90 (>60 ml/min/1.73 sqM); Anion Gap 3 mmol/L; Blood Urea Nitrogen 5 mg/dL (9-20); Calcium 7.7 mg/dL (8.4-10.2); Carbon Dioxide 24 mmol/L (22-30); Chloride 102 mmol/L (98-107); Glucose 84 mg/dL (74-99); Magnesium 1.7 mg/dL (1.6-2.3); Non-African American GFR(CKD) >90 (>60 ml/min/1.73 sqM); Potassium 3.8 mmol/L (3.5-5.1); Sodium 129 mmol/L (137-145)
--- NOTE | 2023-09-05 10:46 | P.PN ---
Subjective Patient is seen in follow-up for hyponatremia. Sodium level gradually improving. Oral intake good. No vomiting or diarrhea. Good urine output. Vital signs are stable. General: No acute distress. HEENT: Head exam is unremarkable. LUNGS: No audible rhonchi or wheezes. HEART: Rate and Rhythm are regular. ABDOMEN: Nontender. EXTREMITITES: Left foot wrapped. 1+ edema. Objective - Vital Signs Vital signs: Vital Signs Temp 98.2 F 09/05/23 07:15 Pulse 81 09/05/23 07:15 Resp 18 09/05/23 07:15 BP 130/71 09/05/23 07:15 Pulse Ox 99 09/05/23 07:15 FiO2 Intake & Output 09/04/23 09/05/23 09/05/23 18:59 06:59 18:59 Intake Total 2700 Output Total 2450 650 Balance 250 -650 Weight 99.79 kg Intake: IV 1100 Intake, IV Titration 1600 Amount Ampicillin-Sulbactam 3 gm 200 In Sodium Chloride 0.9% 100 ml @ 200 mls/hr IVPB Q6HR [facility] Rx#:[id number] Sodium Chloride 0.9% 1, 900 000 ml @ 75 mls/hr IV . [id number] [facility] Rx#:[id number] Vancomycin 1,750 mg In 500 Sodium Chloride 0.9% 500 ml 500 ml @ 167 mls/hr IVPB Q8H [facility] Rx#: [id number] Output: Urine 2450 650 Other: Voiding Method Indwelling Catheter Indwelling Catheter Indwelling Catheter - Labs CBC & Chem 7: 09/04/23 06:28 09/05/23 06:05 Labs: Abnormal Lab Results - Last 24 Hours (Table) 09/05/23 Range/Units 06:05 Sodium 129 L (137-145) mmol/L BUN 5 L (9-20) mg/dL Creatinine 0.56 L (0.66-1.25) mg/dL Calcium 7.7 L (8.4-10.2) mg/dL Microbiology - Last 24 Hours (Table) 09/03/23 11:10 Gram Stain - Final Foot - Left Wound Culture - Final Proteus vulgaris 09/03/23 11:10 Blood Culture - Preliminary Blood 09/03/23 11:10 Blood Culture - Preliminary Blood Assessment and Plan Plan: Assessment: 1. Hyponatremia from poor solute intake and excessive fluid intake. Also component of NSAID use. Urine sodium less than 20 and urine osmolality 312. Improved with IV hydration. TSH normal. Sodium level of 129 this morning. 2. Left foot wound on antibiotics. Culture positive for Proteus. Infectious disease and vascular surgery following. Status post debridement September 04, 2023. 3. Peripheral arterial disease with prior stenting. 4. Urinary retention status post Stearns catheter placement. On Flomax. Plan: Encouraged oral intake. Repeat labs in the morning.
--- NOTE | 2023-09-05 12:08 | P.PN ---
Subjective Progress Note Date: 09/05/23 Principal diagnosis: Left foot wound and cellulitis Patient is a 57-year-old male with a past medical history significant for COPD PAD in this patient who did have a previous history of right femoropopliteal bypass at [facility] anxiety depression current ever yday smoker presented to the hospital worsening discoloration and wound to the left foot that has been there for couple of months. Patient is status post excisional debridement of the left foot completed by vascular surgery operative report mention no evidence of osteomyelitis. On today's evaluation that is 09/05/2023, the patient continues to be afebrile, the patient is on room air and breathing comfortably, the Pt denies having any chest pain or cough, the patient denies having any abdominal pain no vomiting or any diarrhea has been reported by the nursing staff, patient mention pain to the left for slightly decreased in intensity. Patient local culture growing Proteus white count is 8.8 creatinine 0.56 Objective - Vital Signs Vital signs: Vital Signs Temp 98.2 F 09/05/23 07:15 Pulse 81 09/05/23 07:15 Resp 18 09/05/23 07:15 BP 130/71 09/05/23 07:15 Pulse Ox 99 09/05/23 07:15 FiO2 Intake & Output 09/04/23 09/05/23 09/05/23 18:59 06:59 18:59 Intake Total 2700 Output Total 2450 650 825 Balance 250 -650 -825 Weight 99.79 kg Intake: IV 1100 Intake, IV Titration 1600 Amount Ampicillin-Sulbactam 3 gm 200 In Sodium Chloride 0.9% 100 ml @ 200 mls/hr IVPB Q6HR [facility] Rx#:[id number] Sodium Chloride 0.9% 1, 900 000 ml @ 75 mls/hr IV . [id number] [facility] Rx#:[id number] Vancomycin 1,750 mg In 500 Sodium Chloride 0.9% 500 ml 500 ml @ 167 mls/hr IVPB Q8H [facility] Rx#: [id number] Output: Urine 2450 650 825 Other: Voiding Method Indwelling Catheter Indwelling Catheter Indwelling Catheter - Exam GENERAL DESCRIPTION: Middle-age male lying in bed in no distress RESPIRATORY SYSTEM: Unlabored breathing , decreased breath sounds at bases HEART: S1 S2 regular rate and rhythm , ABDOMEN: Soft , no tenderness EXTREMITIES: Left foot currently dressed minimal drainage on the dressing - Labs CBC & Chem 7: 09/04/23 06:28 09/05/23 06:05 Labs: Abnormal Lab Results - Last 24 Hours (Table) 09/05/23 Range/Units 06:05 Sodium 129 L (137-145) mmol/L BUN 5 L (9-20) mg/dL Creatinine 0.56 L (0.66-1.25) mg/dL Calcium 7.7 L (8.4-10.2) mg/dL Microbiology - Last 24 Hours (Table) 09/03/23 11:10 Gram Stain - Final Foot - Left Wound Culture - Final Proteus vulgaris 09/03/23 11:10 Blood Culture - Preliminary Blood 09/03/23 11:10 Blood Culture - Preliminary Blood Assessment and Plan (1) Cellulitis of left foot Current Visit: Yes Status: Acute Code(s): L03.116 - CELLULITIS OF LEFT LOWER LIMB SNOMED Code(s): 29904532250292846 (2) Infected wound Current Visit: Yes Status: Acute Code(s): T14.8XXA - OTHER INJURY OF UNSPECIFIED BODY REGION, INITIAL ENCOUNTER; L08.9 - LOCAL INFECTION OF THE SKIN AND SUBCUTANEOUS TISSUE, UNSP SNOMED Code(s): 73954730 Plan: 1-1patient is a 57-year-old male past medical history significant for PAD in this patient current smoker presented to hospital with extensive infection/wound to the left foot area likely component of ischemia with secondar y cellulitis 2-patient is status post surgical debridement and deep culture, operative report did not mention any extension of the wound 3patient cultures currently growing Proteus sensitive to Unasyn to be continued and will discontinue vancomycin Dictation was produced using [employer] dictation software. please excuse any grammatical, word or spelling errors. Time with Patient: Less than 30
--- NOTE | 2023-09-05 13:31 | P.PN ---
Subjective 57-year-old gentleman with past medical history significant for duodenal ulcer, history of gastrointestinal bleed, peripheral arterial disease history of s/p right femoral endarterectomy, right SFA and profunda embolectomy 2016, history of colon diverticulosis, history of COPD, alcohol use, history of depression presents to the emergency department with complaints of wound noted on his foot for approximately 8 months. Patient said he has been using topical antibiotic however recently patient has noted that the wound was getting worse. Patient states that for approximately 1 week he has not removed his socks and decided to come to the emergency since patient was unable to walk. Patient does endorse that he has history of arterial disease however denies history of diabetes. Workup initiated in ER included CBC which showed WBC of 10.7 hemoglobin 12.6 platelet count of 329 Chemistry obtained in ER showed sodium of 119, potassium 4.2, dioxide 21 BUN 10 creatinine 0.53 X-ray obtained in ER showed soft tissue wound lateral to the fifth metatarsal head.. Further evaluation ordered including CT foot Patient started on IV Zosyn and vancomycin admitted to medical floor 09/04/23: patient seen and evaluated at bedside, CT angiogram lower extremity reviewed bilateral moderate to severe occlusive disease noted. , vascular surgery consulted. Patient started on aspirin and Lipitor. Appreciate input from Infectious Disease continue patient on IV antibiotic continue with wound care. Patient going for wound debridement made n.p.o. patient made suicidal ideation, continue one-to-one sitter will consult psychiatry 09/05/2023 This is a pleasant 57 years old male who presents on 09/03 for left foot infection on the wound which was been going on for 8 months, recently getting worse. He is status post excision and debridement and 09/04. Today postop day #1. His left foot in a dressing and pain was controlled. 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 When asked the patient he told me he has depression but he denies suicidal ideation or homicidal ideation currently. No evidence of active delirium tremens or alcohol withdrawal symptoms His wound culture is growing sensitive for Proteus and the vancomycin was discontinued Discussed with staff Review of systems CONSTITUTIONAL: No fever, no malaise, no fatigue. HEENT: No recent visual problems or hearing problems. Denied any sore throat. CARDIOVASCULAR: No orthopnea, PND, no palpitations, no syncope. PULMONARY: No shortness of breath, no cough, no hemoptysis. GASTROINTESTINAL: No diarrhea, no nausea, no vomiting, no abdominal pain. Normoactive bowel sounds. Active Medications Generic Name Dose Route Start Last Admin Trade Name Freq PRN Reason Stop Dose Admin Acetaminophen 650 mg 09/03/23 13:29 Acetaminophen Tab 325 Mg Tab PO Q6HR PRN Mild Pain or Fever > 100.5 Alprazolam 0.5 mg 09/03/23 21:00 09/04/23 21:34 Alprazolam 0.5 Mg Tab PO 0.5 mg HS OLVIN Administration Aspirin 81 mg 09/03/23 14:15 09/05/23 08:07 Aspirin 81 Mg PO Not Given DAILY O[facility] Atorvastatin Calcium 40 mg 09/03/23 21:00 09/04/23 21:35 Atorvastatin 40 Mg Tab PO 40 mg HS O[facility]IN Administration Citalopram Hydrobromide 40 mg 09/04/23 21:00 09/04/23 21:34 Citalopram Hydrobromide 20 Mg Tab PO 40 mg HS OLVIN Administration Enoxaparin Sodium 40 mg 09/04/23 09:00 09/05/23 08:07 Enoxaparin 40 Mg/0.4 Ml Syringe SQ Not Given DAILY [facility] Hydromorphone HCl 1 mg 09/03/23 13:29 09/04/23 11:08 Hydromorphone 1 Mg/Ml 1 Ml Syringe IVP 1 mg Q3HR PRN Administration Severe Pain (Scale 7 to 10) Ampicillin Sodium/Sulbactam 100 mls @ 200 mls/hr 09/04/23 00:00 09/05/23 11:19 Sodium 3 gm/ Sodium Chloride IVPB 200 mls/hr Q6HR [facility] Administration Protocol Lorazepam 2 mg 09/03/23 14:05 Lorazepam 1 Mg Tab PO Q2HR PRN Ciwa 10 or greater Lorazepam 2 mg 09/03/23 14:05 Lorazepam 2 Mg/Ml Inj IV 09/05/23 14:05 Q10M PRN CIWA 16 or higher Mirtazapine 7.5 mg 09/04/23 21:00 09/04/23 21:34 Mirtazapine 15 Mg Tab PO 7.5 mg HS OLVIN Administration Naloxone HCl 0.2 mg 09/03/23 13:29 Naloxone 0.4 Mg/Ml 1 Ml Vial IV Q2M PRN Opioid Reversal Ondansetron HCl 4 mg 09/03/23 13:29 Ondansetron 4 Mg/2 Ml Vial IVP Q8HR PRN Nausea And Vomiting Oxycodone/Acetaminophen 1 each 09/03/23 13:29 09/05/23 11:50 Oxycodone-Apap 5-325mg 1 Each Tab PO 1 each Q4HR PRN Administration Severe Pain (Scale 7 to 10) Pantoprazole Sodium 40 mg 09/03/23 21:00 09/04/23 21:34 Pantoprazole 40 Mg Tablet PO 40 mg HS OLVIN Administration Tamsulosin HCl 0.4 mg 09/04/23 11:15 09/05/23 08:06 Tamsulosin 0.4 Mg Cap.Er.24h PO 0.4 mg [id number] O[facility] Administration Thiamine HCl 100 mg 09/04/23 09:00 09/05/23 08:06 Thiamine 100 Mg Tab PO 100 mg DAILY OLVIN Administration Objective - Vital Signs Vital signs: Vital Signs Temp 98.2 F 09/05/23 07:15 Pulse 81 09/05/23 07:15 Resp 18 09/05/23 07:15 BP 130/71 09/05/23 07:15 Pulse Ox 99 09/05/23 07:15 FiO2 Intake & Output 09/04/23 09/05/23 09/05/23 18:59 06:59 18:59 Intake Total 2700 Output Total 2450 650 825 Balance 250 -650 -825 Weight 99.79 kg Intake: IV 1100 Intake, IV Titration 1600 Amount Ampicillin-Sulbactam 3 gm 200 In Sodium Chloride 0.9% 100 ml @ 200 mls/hr IVPB Q6HR [facility] Rx#:[id number] Sodium Chloride 0.9% 1, 900 000 ml @ 75 mls/hr IV . [id number] [facility] Rx#:[id number] Vancomycin 1,750 mg In 500 Sodium Chloride 0.9% 500 ml 500 ml @ 167 mls/hr IVPB Q8H [facility] Rx#: [id number] Output: Urine 2450 650 825 Other: Voiding Method Indwelling Catheter Indwelling Catheter Indwelling Catheter - Exam GENERAL: The patient is alert and oriented x3, not in any acute distress. Well developed, well nourished. HEENT: Pupils are round and equally reacting to light. EOMI. No scleral icterus. No conjunctival pallor. Normocephalic, atraumatic. No pharyngeal erythema. No thyromegaly. CARDIOVASCULAR: S1 and S2 present. No murmurs, rubs, or gallops. PULMONARY: Chest is clear to auscultation, no wheezing , no crackles. ABDOMEN: Soft, nontender, nondistended, normoactive bowel sounds. No palpable organomegaly. MUSCULOSKELETAL: No joint swelling or deformity. -EXTREMITIES: No cyanosis, clubbing, or pedal edema. Left foot surgical wound with a recent a Place. Rest of exam is deferred to surgery team NEUROLOGICAL: Gross neurological examination did not reveal any focal deficits. SKIN: No rashes. no petechiae. - Labs CBC & Chem 7: 09/04/23 06:28 09/05/23 06:05 Labs: Abnormal Lab Results - Last 24 Hours (Table) 09/05/23 Range/Units 06:05 Sodium 129 L (137-145) mmol/L BUN 5 L (9-20) mg/dL Creatinine 0.56 L (0.66-1.25) mg/dL Calcium 7.7 L (8.4-10.2) mg/dL Microbiology - Last 24 Hours (Table) 09/03/23 11:10 Gram Stain - Final Foot - Left Wound Culture - Final Proteus vulgaris 09/03/23 11:10 Blood Culture - Preliminary Blood 09/03/23 11:10 Blood Culture - Preliminary Blood Assessment and Plan Assessment: Left foot gangrene and wound infection with cellulitis status post excision and debridement and 09/04 Depression, with previous suicidal ideation. He tolerated by psychiatrist Local lose disorder Hyponatremia, improving Plan: Continue with Unasyn Continue with CIWA protocol and a mean Psychiatric evaluation is ongoing and patient currently has sitter at bedside to be discontinued by psychiatrist Monitor sodium level and follow with organization development consultant recommendation. Labs and medication were reviewed.. Continue same treatment. Continue with symptomatic treatment. Resume home medication. Monitor labs and vitals. DVT and GI prophylaxis. Further recommendations as per clinical course of the patient DVT prophylaxis: Subcutaneous heparin GI Prophylaxis: Pepcid PT/OT: Subacute rehab, I talked to the patient and he is agreeable Prognosis is guarded
--- NOTE | 2023-09-05 14:20 | P.PN ---
Progress Note - Text Progress Note Date: 09/05/23 Interval history: Patient was seen today for psychiatric follow-up regarding patient's depression and anxiety. Patient was seen today at the bedside and agreeable to speak to technical report writer. Patient had wound debridement today this morning with vascular surgery. Patient claims that he is doing a bit better with regards to his depression, I explained that he does have some mild anxiety still. Claims that the meds have been helping him. He states that he did not sleep well last night, we spoke ab out increasing his Remeron and also adding trazodone as needed and which she is okay with. States that he is looking forward to the news about his foot and what they can do to help him. At this time he is more future oriented, denying any suicidal homicidal ideations intent or plan. Denies any auditory or visual hallucinations. He was contracted to safety with the technical report writer MENTAL STATUS EXAM: General Appearance: Patient appears to be have severe wound in his left leg, necrosis, stated age is alert, attempts to be cooperative. Patient appears to have fair hygiene and grooming wearing hospital gown with improving eye contact Behavior: Patient is calmly lying in bed without any agitated behavior. Vague at times, improving Speech: Patient's speech is fluent and nonpressured. Mood/Affect: Patient reports their mood is "a bit anxious", mood is improving, affect is congruent and constricted, improving Suicidality/Homicidality: Patient denies having any suicidal or homicidal ideation intent or plan. Perceptions: Patient denies any visual hallucinations and denies any auditory hallucinations Though content/process: There is no evidence of any delusional thought content and thought process is linear and goal-directed. [place], more future oriented today Memory and concentration: AOX3, grossly intact for the purposes of this session Judgment and insight: Improving mildly IMPRESSIONS: Major depressive disorder Anxiety disorder unspecified Nicotine dependence PLAN: -At this time patient DOES NOT meet criteria for inpatient psychiatric admission. Would recommend the following medication changes/additions: Can continue with Xanax 0.5 mg nightly for anxiety, Celexa 40 mg nightly for mood/anxiety. Increased Remeron 15 mg nightly for sleep/anxiety/mood. Added trazodone 50 mg nightly as needed for insomnia. -Can discontinue 1:1 sitter today as patient claims that he is improving since yesterday, adamantly denies any suicidal ideations today intent or plan. -Communicated plan to patient's nurse -At this time psychiatry will sign off. -Please contact with any questions.
[2023-09-05] MEDS: MIDAZOLAM 2 MG/2 ML VIAL IVP ONE (14:30)
[2023-09-05] MEDS: fentaNYL (PF) 50 MCG/1 ML VIAL IVP ONE ×2 (14:30→14:43)
[2023-09-05] MEDS: LIDOCAINE 1% INJ 10MG/ML (5 ML VIAL-PF) SQ ONE (14:30)
[2023-09-05] MEDS: IOPAMIDOL-370 100ML BTL INTRATHECA ONE (14:47)
[2023-09-05] MEDS: SODIUM CHLORIDE 0.9% 1,000 ML IV ONE (14:48)
--- NOTE | 2023-09-05 14:58 | P.OP ---
Date of Procedure: 09/05/23 Description of Procedure: Preoperative diagnosis: [place] 6 peripheral arterial disease, left lower extremity wound Postoperative diagnosis: Same Procedure: Ultrasound-guided right radial artery access with permanent images stored Selective placement of catheter in descending and abdominal aorta, second order Aortogram with runoffs Moderate conscious sedation 24 minutes, personal monitoring certified RN administration with hemodynamic monitoring Surgeon: Surekha Stearns D.O. EBL: Less than 5 mL IV fluids: See records Urine output: Not measured Drains: None Complications: None immediately apparent Condition: Stable to recovery Operative indication and findings: Patient is 57-year-old male with severe peripheral vascular disease, previous right lower extremity bypass and left lower extremity wounds. In order to undergo intervention revascularization further visualization with angiogram was recommended due to planning for bypass and target. Risks and benefits were discussed. He seemingly understood Procedure in detail: [Patient was taken to the special suite and placed in supine position the right wrist and bilateral groins are prepped and draped in usual sterile fashion. A pre-procedure, performed, all parties are in agreement. Using ultrasound, the right radial artery was identified, it was found be patent with no significant calcific disease. Permanent images stored. The skin overlying was anesthetized and using Seldinger technique a 5 slender sheath was placed. Catheters and wires were then advanced into the subclavian artery, the aortic arch, then using a pigtail catheter the descending aorta was selected. The catheter was advanced and an aortogram was performed. The catheter was advanced to the bifurcation and bilateral lower extremity images were obtained. Catheters and wires were then removed. The sheath was removed and anterior band was placed with adequate hemostasis. The patient was transferred to recovery in stable condition having tolerated the procedure well. Angiographic findings: Aorta. Normal course and caliber. Bilateral bilateral common iliac arteries appear patent without significant disease. The internal and external iliac arteries appear patent without obvious disease. On the right, the common femoral artery appears patent without significant disease. There is postsurgical changes with a bypass visualized that is patent down to the above-knee femoral artery. There is a widely patent popliteal artery. The anterior tibial and peroneal arteries appear patent. There is no posterior tibial artery visualized. On the left, the common femoral artery has significant disease with occlusion of the common and reconstitution of the profunda. The superficial femoral artery is occluded at its origin and does reconstitute at the level of the below-knee popliteal artery. Flow is diminutive however there does appear to be some disease. It is patent and there is visualization of the anterior tibial and peroneal vessel down to the mid calf.
--- NOTE | 2023-09-05 17:53 | IR ---
EXAMINATION TYPE: IR angio abdominal w runoff Intraoperative/procedural fluoroscopic services were pr ovided. CLINICAL INDICATION:Male, 57 years old with history of 1.7min fluoro, bilateral leg pain, 104.8999Gyc m2; , [facility] Total fluoroscopy time is 1.7 min. DAP: 104.89 Gycm2 Please see the operative/procedural note for further details.
[2023-09-05] MEDS: MIRTAZAPINE 15 MG TAB PO SCH (22:10)
--- NOTE | 2023-09-05 23:35 | US ---
EXAMINATION TYPE: US vein mapping LT DATE OF EXAM: 09/05/2023 9:16 PM COMPARISON: NONE CLINICAL INDICATION: Male, 57 years old with history of need by tomorrow am to know if able to use by pass; SIDE PERFORMED: Left TECHNIQUE: Left leg greater saphenous vein is examined and measured utilizing real time linear array sonography. DUPLEX FINDINGS: Greater Saphenous: Color flow seen Measurements in mm: Left Greater Saphenous: Groin: 6.7 x 5.3 mm High Thigh: 5.7 x 4.8 mm Mid Thigh: 3.3 x 2.9 mm Above Knee: 2.4 x 1.8 mm Knee: 4.6 x 3.1 mm Below Knee: 4.1 x 3 mm Mid Calf: 3.8 x 2.9 mm At Ankle: 5 x 3.8 mm Prominent lymph node seen in the groin measuring 2.8 x 1.7 x 1.2cm, with preserved lymph node archite cture. Edema noted in the calf. IMPRESSION: 1. Left leg GSV measurements as above. Performing surgeon to determine viability as conduit. 2. Prominent lymph node seen in the left groin, likely reactive. 3. Calf edema.
[2023-09-06 08:41] LABS: African American GFR (CKD) >90 (>60 ml/min/1.73 sqM); Anion Gap 6 mmol/L; Blood Urea Nitrogen 5 mg/dL (9-20); Calcium 7.6 mg/dL (8.4-10.2); Carbon Dioxide 23 mmol/L (22-30); Chloride 99 mmol/L (98-107); Glucose 77 mg/dL (74-99); Non-African American GFR(CKD) >90 (>60 ml/min/1.73 sqM); Sodium 128 mmol/L (137-145)
[2023-09-06 08:44] LABS: Potassium 3.8 mmol/L (3.5-5.1)
--- NOTE | 2023-09-06 10:42 | P.PN ---
Subjective Patient is seen in follow-up for hyponatremia. Sodium level stable. Oral intake good. No vomiting or diarrhea. Good urine output. Vital signs are stable. General: No acute distress. HEENT: Head exam is unremarkable. LUNGS: No audible rhonchi or wheezes. HEART: Rate and Rhythm are regular. ABDOMEN: Nontender. EXTREMITITES: Left foot wrapped. 1+ edema. Objective - Vital Signs Vital signs: Vital Signs Temp 98 F 09/06/23 04:00 Pulse 89 09/06/23 04:00 Resp 16 09/05/23 15:29 BP 136/69 09/06/23 04:00 Pulse Ox 92 L 09/06/23 04:00 FiO2 Intake & Output 09/05/23 09/06/23 09/06/23 18:59 06:59 18:59 Intake Total 740 Output Total 825 2325 Balance -85 -2325 Intake: IV 200 Oral 540 Output: Urine 825 2325 Other: Voiding Method Indwelling Catheter Indwelling Catheter - Labs CBC & Chem 7: 09/04/23 06:28 09/06/23 07:26 Labs: Abnormal Lab Results - Last 24 Hours (Table) 09/06/23 Range/Units 07:26 Sodium 128 L (137-145) mmol/L BUN 5 L (9-20) mg/dL Creatinine 0.55 L (0.66-1.25) mg/dL Calcium 7.6 L (8.4-10.2) mg/dL Microbiology - Last 24 Hours (Table) 09/04/23 16:51 Gram Stain - Preliminary Foot - Left Wound Culture - Preliminary Gram Neg Bacilli 09/03/23 11:10 Blood Culture - Preliminary Blood 09/03/23 11:10 Blood Culture - Preliminary Blood 09/03/23 11:10 Gram Stain - Final Foot - Left Wound Culture - Final Proteus vulgaris Assessment and Plan Plan: Assessment: 1. Hyponatremia from poor solute intake and excessive fluid intake. Also component of NSAID use. Urine sodium less than 20 and urine osmolality 312. Improved with IV hydration. TSH normal. Sodium level stable at 128 this morning. 2. Left foot wound on antibiotics. Culture positive for Proteus. Infectious disease and vascular surgery following. Status post debridement September 04, 2023. 3. Peripheral arterial disease with prior stenting. 4. Urinary retention status post Stearns catheter placement. On Flomax. Plan: Encouraged oral intake. Add 1500 cc fluid restriction. Lasix 20 mg IV once today. Repeat labs in the morning.
--- NOTE | 2023-09-06 11:27 | P.PN ---
Subjective 57-year-old gentleman with past medical history significant for duodenal ulcer, history of gastrointestinal bleed, peripheral arterial disease history of s/p right femoral endarterectomy, right SFA and profunda embolectomy 2016, history of colon diverticulosis, history of COPD, alcohol use, history of depression presents to the emergency department with complaints of wound noted on his foot for approximately 8 months. Patient said he has been using topical antibiotic however recently patient has noted that the wound was getting worse. Patient states that for approximately 1 week he has not removed his socks and decided to come to the emergency since patient was unable to walk. Patient does endorse that he has history of arterial disease however denies history of diabetes. Workup initiated in ER included CBC which showed WBC of 10.7 hemoglobin 12.6 platelet count of 329 Chemistry obtained in ER showed sodium of 119, potassium 4.2, dioxide 21 BUN 10 creatinine 0.53 X-ray obtained in ER showed soft tissue wound lateral to the fifth metatarsal head.. Further evaluation ordered including CT foot Patient started on IV Zosyn and vancomycin admitted to medical floor 09/04/23: patient seen and evaluated at bedside, CT angiogram lower extremity reviewed bilateral moderate to severe occlusive disease noted. , vascular surgery consulted. Patient started on aspirin and Lipitor. Appreciate input from Infectious Disease continue patient on IV antibiotic continue with wound care. Patient going for wound debridement made n.p.o. patient made suicidal ideation, continue one-to-one sitter will consult psychiatry 09/05/2023 This is a pleasant 57 years old male who presents on 09/03 for left foot infection on the wound which was been going on for 8 months, recently getting worse. He is status post excision and debridement and 09/04. Today postop day #1. His left foot in a dressing and pain was controlled. 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 When asked the patient he told me he has depression but he denies suicidal ideation or homicidal ideation currently. No evidence of active delirium tremens or alcohol withdrawal symptoms His wound culture is growing sensitive for Proteus and the vancomycin was discontinued Discussed with staff 09/06/2023 Patient transferred to [address] [place] [address] after the angiogram done yesterday by vascular surgery team showing significant peripheral vascular disease involvement the left lower extremity including the iliac arteries and tibia arteries as well. Patient remains on Unasyn and wound culture, Proteus, repeat wound culture growing gram-negative bacilli which is pending for now Patients sodium 128 and he has evidence of bilateral leg swelling. Is status post Lasix 20 mg 1 today Objective - Vital Signs Vital signs: Vital Signs Temp 98 F 09/06/23 04:00 Pulse 89 09/06/23 04:00 Resp 16 09/05/23 15:29 BP 136/69 09/06/23 04:00 Pulse Ox 92 L 09/06/23 04:00 FiO2 Intake & Output 09/05/23 09/06/23 09/06/23 18:59 06:59 18:59 Intake Total 740 Output Total 825 2325 Balance -85 -2325 Intake: IV 200 Oral 540 Output: Urine 825 2325 Other: Voiding Method Indwelling Catheter Indwelling Catheter - Exam GENERAL: The patient is alert and oriented x3, not in any acute distress. Well developed, well nourished. HEENT: Pupils are round and equally reacting to light. EOMI. No scleral icterus. No conjunctival pallor. Normocephalic, atraumatic. No pharyngeal erythema. No thyromegaly. CARDIOVASCULAR: S1 and S2 present. No murmurs, rubs, or gallops. PULMONARY: Chest is clear to auscultation, no wheezing , no crackles. ABDOMEN: Soft, nontender, nondistended, normoactive bowel sounds. No palpable organomegaly. MUSCULOSKELETAL: No joint swelling or deformity. -EXTREMITIES: No cyanosis, clubbing, or pedal edema. Left foot surgical wound with a recent a Place. Rest of exam is deferred to surgery team NEUROLOGICAL: Gross neurological examination did not reveal any focal deficits. SKIN: No rashes. no petechiae. - Labs CBC & Chem 7: 09/04/23 06:28 09/06/23 07:26 Labs: Abnormal Lab Results - Last 24 Hours (Table) 09/06/23 Range/Units 07:26 Sodium 128 L (137-145) mmol/L BUN 5 L (9-20) mg/dL Creatinine 0.55 L (0.66-1.25) mg/dL Calcium 7.6 L (8.4-10.2) mg/dL Microbiology - Last 24 Hours (Table) 09/04/23 16:51 Gram Stain - Preliminary Foot - Left Wound Culture - Preliminary Gram Neg Bacilli 09/03/23 11:10 Blood Culture - Preliminary Blood 09/03/23 11:10 Blood Culture - Preliminary Blood 09/03/23 11:10 Gram Stain - Final Foot - Left Wound Culture - Final Proteus vulgaris Assessment and Plan Assessment: Left foot gangrene and wound infection with cellulitis status post excision and debridement and 09/04. Angiogram showing significant disease of the left lower extremity Depression, with previous suicidal ideation. He is improved and patient was by psychiatrist who discontinued the sitter Alcohol lose disorder, patient consult and increased to quit. No withdrawal symptoms currently Hyponatremia, hypervolemic Bilateral pitting leg edema Plan: Continue with Unasyn. Follow-up final wound culture results Psychiatric evaluation is appreciated. Psychiatric team discontinued sitter and found patient does not meet criteria for inpatient psych unit, continue with medications recommended by psychiatrist Monitor sodium level and follow with superintendent automotive recommendation. Status post Lasix Vascular surgery team of the case and patient is status post angiogram showing significant disease of the left lower extremity. Labs and medication were reviewed.. Continue same treatment. Continue with symptomatic treatment. Resume home medication. Monitor labs and vitals. DVT and GI prophylaxis. Further recommendations as per clinical course of the patient DVT prophylaxis: Subcutaneous heparin GI Prophylaxis: Pepcid PT/OT: Subacute rehab, I talked to the patient and he is agreeable Prognosis is guarded
--- NOTE | 2023-09-06 11:37 | P.CONS ---
History of Present Illness - Reason for Consult Consult date: 09/06/23 wound care - History of Present Illness This is a 57-year-old patient being seen on 3 S. for a nonhealing ulceration of the left foot status postsurgical debridement. Patient's past medical history significant for COPD he is a current everyday smoker previous popliteal bypass in 2017. Patient is scheduled to have a vascular intervention tomorrow. Patient has a nonhealing ulceration with bone exposure possible osteomyelitis and gangrene to the left foot. Ulceration measures approximately 20 x 20 x 0.3 cm with slough and nonviable tissue present no tunneling or undermining noted. Minimal granulation noted to the wound bed. Review Of Systems: Constitutional: No fever, no chills, no night sweats. No weight change. No weakness, fatigue or lethargy. No daytime sleepiness. Integumentary:reports wounds, no lesions. No rash or pruritus. No unusual bruising. No change in hair or nails. Physical exam: General Appearance: Alert, cooperative, no distress, appears stated age. Skin: See HPI all other Skin color, texture, tugor normal, no rashes or lesions. Neurologic: Alert oriented x3 Assessment: 1. Nonhealing ulceration with bone necrosis left foot 2. Osteomyelitis 3. Gangrene Plan: 1.Apply Santyl, saline moist gauze, dry gauze, rolled gauze and secure with paper tape. Change daily. Patient would benefit from advanced wound care and wound care center. We be happy to see him upon discharge. Thank you for the consultation any questions please contact the wound care center DNP note has been reviewed and discussed with Dr. Beal and the impression and plan of care has been directed as dictated. Past Medical History Past Medical History: COPD, Vascular Disorder Additional Past Medical History / Comment(s): PVD, DVT R leg-recent R femoral popliteal bypass at [facility] 02/22/17, History of Any Multi-Drug Resistant Organisms: None Reported Past Surgical History: Orthopedic Surgery Additional Past Surgical History / Comment(s): R fem pop bypass 02/22/17 [facility], bilateral knee arthroscopic surgeries. Past Anesthesia/Blood Transfusion Reactions: No Reported Reaction Additional Past Anesthesia/Blood Transfusion Reaction / Comm: Pt is currently receiving blood-no reaction at this time. Past Psychological History: Anxiety, Depression Smoking Status: Current every day smoker Past Alcohol Use History: Daily, Heavy Past Drug Use History: None Reported - Past Family History Mother Family Medical History: Cancer, Hyperlipidemia Additional Family Medical History / Comment(s): Mother had skin cancer. She is living. Father Family Medical History: Hyperlipidemia, Hypertension Additional Family Medical History / Comment(s): Father has heart condition. Medications and Allergies Home Medications Medication Instructions Recorded Confirmed Type ALPRAZolam [Xanax] 0.5 mg PO HS 02/22/17 09/03/23 History ALPRAZolam [Xanax] 0.25 mg PO DAILY PRN 09/03/23 09/03/23 History Citalopram Hydrobromide [CeleXA] 20 mg PO HS 09/03/23 09/03/23 History Omeprazole 20 mg PO HS 09/03/23 09/03/23 History Allergies Allergy/AdvReac Type Severity Reaction Status Date / Time No Known Allergies Allergy Verified 09/04/23 15:37 Physical Exam Vitals: Vital Signs Temp Pulse Pulse Resp BP BP Pulse Ox 09/06/23 08:45 98.4 F 89 16 109/68 97 09/06/23 04:00 98 F 89 136/69 92 L 09/06/23 00:00 79 130/69 96 09/05/23 20:00 98.2 F 74 145/72 98 09/05/23 16:44 87 123/75 98 09/05/23 16:30 91 104/65 99 09/05/23 16:15 93 109/65 100 09/05/23 15:29 90 16 138/80 97 09/05/23 15:14 96 16 151/74 97 09/05/23 14:59 92 16 158/80 96 09/05/23 14:00 97.9 F 81 16 122/68 98 Intake and Output 09/05/23 09/06/23 09/06/23 22:59 06:59 14:59 Intake Total 640 Output Total 850 1475 Balance -210 -1475 Intake: IV 100 Oral 540 Output: Urine 850 1475 Other: Voiding Method Indwelling Catheter Indwelling Catheter Indwelling Catheter Results CBC & Chem 7: 09/04/23 06:28 09/06/23 07:26 Labs: Abnormal Lab Results - Last 24 Hours (Table) 09/06/23 Range/Units 07:26 Sodium 128 L (137-145) mmol/L BUN 5 L (9-20) mg/dL Creatinine 0.55 L (0.66-1.25) mg/dL Calcium 7.6 L (8.4-10.2) mg/dL Microbiology - Last 24 Hours (Table) 09/04/23 16:51 Gram Stain - Preliminary Foot - Left Wound Culture - Preliminary Gram Neg Bacilli 09/03/23 11:10 Blood Culture - Preliminary Blood 09/03/23 11:10 Blood Culture - Preliminary Blood 09/03/23 11:10 Gram Stain - Final Foot - Left Wound Culture - Final Proteus vulgaris Assessment and Plan (1) Non-pressure chronic ulcer of other part of left foot with necrosis of bone Current Visit: Yes Status: Acute Code(s): L97.524 - NON-PRS CHRONIC ULCER OTH PRT LEFT FOOT W NECROSIS OF BONE SNOMED Code(s): 25667959813439284 (2) Osteomyelitis, unspecified Current Visit: Yes Status: Acute Code(s): M86.9 - OSTEOMYELITIS, UNSPECIFIED SNOMED Code(s): 32495552 (3) Gangrene Current Visit: Yes Status: Acute Code(s): I96 - GANGRENE, NOT ELSEWHERE CLASSIFIED SNOMED Code(s): 221969516
[2023-09-06] MEDS: FUROSEMIDE 10 MG/ML 2 ML VIAL IV ONE (11:53)
--- NOTE | 2023-09-06 12:26 | P.PN ---
Subjective Progress Note Date: 09/06/23 Principal diagnosis: Left foot wound and cellulitis Patient is a 57-year-old male with a past medical history significant for COPD PAD in this patient who did have a previous history of right femoropopliteal bypass at [facility] anxiety depression current ever yday smoker presented to the hospital worsening discoloration and wound to the left foot that has been there for couple of months. Patient is status post excisional debridement of the left foot completed by vascular surgery operative report mention no evidence of osteomyelitis. On today's evaluation that is 09/06/2023, Patient is afebrile patient is currently on room air and denies having any shortness of breath, the patient denies any chest pain or cough, the patient denies any nausea vomiting did not have any abdominal pain and no diarrhea pain to the left foot is currently controlled. Patient creatinine 0.55 local culture with Proteus Objective - Vital Signs Vital signs: Vital Signs Temp 98.2 F 09/06/23 11:47 Pulse 80 09/06/23 11:47 Resp 16 09/06/23 11:47 BP 108/66 09/06/23 11:47 Pulse Ox 99 09/06/23 11:47 FiO2 Intake & Output 09/05/23 09/06/23 09/06/23 18:59 06:59 18:59 Intake Total 740 Output Total 825 2325 1125 Balance -85 -2325 -1125 Intake: IV 200 Oral 540 Output: Urine 825 2325 1125 Other: Voiding Method Indwelling Catheter Indwelling Catheter Indwelling Catheter - Exam GENERAL DESCRIPTION: Middle-age male lying in bed in no distress RESPIRATORY SYSTEM: Unlabored breathing , decreased breath sounds at bases HEART: S1 S2 regular rate and rhythm , ABDOMEN: Soft , no tenderness EXTREMITIES: Left foot currently dressed minimal drainage on the dressing - Labs CBC & Chem 7: 09/04/23 06:28 09/06/23 07:26 Labs: Abnormal Lab Results - Last 24 Hours (Table) 09/06/23 Range/Units 07:26 Sodium 128 L (137-145) mmol/L BUN 5 L (9-20) mg/dL Creatinine 0.55 L (0.66-1.25) mg/dL Calcium 7.6 L (8.4-10.2) mg/dL Microbiology - Last 24 Hours (Table) 09/04/23 16:51 Gram Stain - Preliminary Foot - Left Wound Culture - Preliminary Gram Neg Bacilli 09/03/23 11:10 Blood Culture - Preliminary Blood 09/03/23 11:10 Blood Culture - Preliminary Blood 09/03/23 11:10 Gram Stain - Final Foot - Left Wound Culture - Final Proteus vulgaris Assessment and Plan (1) Cellulitis of left foot Current Visit: Yes Status: Acute Code(s): L03.116 - CELLULITIS OF LEFT LOWER LIMB SNOMED Code(s): 88201144358516111 (2) Infected wound Current Visit: Yes Status: Acute Code(s): T14.8XXA - OTHER INJURY OF UNSPECIFIED BODY REGION, INITIAL ENCOUNTER; L08.9 - LOCAL INFECTION OF THE SKIN AND SUBCUTANEOUS TISSUE, UNSP SNOMED Code(s): 01377178 Plan: 1-1patient is a 57-year-old male past medical history significant for PAD in this patient current smoker presented to hospital with extensive infection/wound to the left foot area likely component of ischemia with secondary cellulitis 2-patient is status post surgical debridement and deep culture, operative report did not mention any extension of the wound 3patient cultures currently growing Proteus sensitive to Unasyn patient to continue with Unasyn will need a PICC line for outpatient IV antibiotic therapy because of his extensive infection Dictation was produced using [employer] dictation software. please excuse any grammatical, word or spelling errors. Time with Patient: Less than 30
--- NOTE | 2023-09-06 13:46 | P.PN ---
Subjective Progress Note Date: 09/06/23 Principal diagnosis: Chronic wound, peripheral arterial disease Patient is seen and examined today as a follow-up. Yesterday he underwent left lower extremity angiogram. He was found to have left SFA and common femoral artery occlusion. Left lower extremity with dressing intact with serosanguineous drainage. No other acute changes through the night. He remains afebrile. Infectious diseases following. Objective - Vital Signs Vital signs: Vital Signs Temp 98.2 F 09/06/23 11:47 Pulse 80 09/06/23 11:47 Resp 16 09/06/23 11:47 BP 108/66 09/06/23 11:47 Pulse Ox 99 09/06/23 11:47 FiO2 Intake & Output 09/05/23 09/06/23 09/06/23 18:59 06:59 18:59 Intake Total 740 480 Output Total 825 2325 1125 Balance -85 -2325 -645 Intake: IV 200 Oral 540 480 Output: Urine 825 2325 1125 Other: Voiding Method Indwelling Catheter Indwelling Catheter Indwelling Catheter - Exam General appearance: The patient is alert, oriented, appears in no acute distress. HET: Head is normocephalic and atraumatic. Pupils are equal and reactive. Neck: Supple. Heart: Regular. Lungs: Equal expansion, normal respiratory effort. Abdomen: Soft, nontender, nondistended. Extremities: Left lower extremity with dressing with serosanguineous drainage, dressing removed. Left foot wound debridement site with pink bleeding tissue. Neurological: No focal deficits. Strength and sensation are grossly intact. - Labs CBC & Chem 7: 09/04/23 06:28 09/06/23 07:26 Labs: Abnormal Lab Results - Last 24 Hours (Table) 09/06/23 Range/Units 07:26 Sodium 128 L (137-145) mmol/L BUN 5 L (9-20) mg/dL Creatinine 0.55 L (0.66-1.25) mg/dL Calcium 7.6 L (8.4-10.2) mg/dL Microbiology - Last 24 Hours (Table) 09/04/23 16:51 Gram Stain - Preliminary Foot - Left Wound Culture - Preliminary Gram Neg Bacilli 09/03/23 11:10 Blood Culture - Preliminary Blood 09/03/23 11:10 Blood Culture - Preliminary Blood 09/03/23 11:10 Gram Stain - Final Foot - Left Wound Culture - Final Proteus vulgaris Assessment and Plan Assessment: 1. 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 [place] 6 peripheral arterial disease 3. Chronic right foot/lower extremity wound 4. Cellulitis 5. History of peripheral arterial disease with previous right lower extremity stenting and femoropopliteal bypass 6. Suicidal ideations on suicide watch Plan: 1. N.p.o. after midnight 2. Hold Lovenox on 09/07/2023 for surgery 3. Patient is status post angiogram 4. Antibiotics per recommendations from infectious disease 5. Patient is scheduled for left femoral endarterectomy with femoral-tibial bypass with in situ graft Thank you for this consultation, we will continue to follow. The impression and plan of care has been dictated as directed. Dr. Robin I performed a history and examination of this patient, discussed the same with the dictator. I agree with the dictator's note ,documented as a scribe. Any additional findings or plans will be noted.
--- NOTE | 2023-09-06 16:32 | CDI ---
Documentation Clarification Form Date: 09/06/2023 04:28:25 PM From: Sheila Kenny RN, CCDS Email: [email or web address] Admit Date: 09/03/2023 01:37:00 PM Patient Name: Star Alas Visit Number: [id number] Discharge Date: ATTENTION: The Clinical Documentation Specialists (CDI) and [facility] Coding Staff appreciate your assistance in clarifying documentation. Please respond to the clarification below the line at the bottom and electronically sign. The CDI & [facility] Coding staff will review the response and follow-up if needed. Please note: Queries are made part of the Legal Health Record. If you have any questions, please contact the author of this message via ITS. Dr. Moe Snow Gangrene is documented in the 09/04 procedure note and subsequent progress notes. Additional specificity regarding the type of gangrene is requested. Patient history/risk factors: PAD, non-healing ulcer left foot, GERD, alcohol and tobacco use. Presents with foot pain and ulcer. Admitted with peripheral arterial disease with nonhealing ulcer left foot and left foot cellulitis rule out osteomyelitis. Clinical Indicators: 09/03 Left foot xray: Soft tissue wound lateral to the fifth metatarsal head. Small foci of soft tissue air are present in this region. Correlate to exclude infection with gas-forming organism. 09/03 ID consult: "patient did have x-ray of the foot. Soft tissue wound lateral to the left fifth metatarsal head small foci of soft tissue air, correlate to exclude infection with a gas-forming organism." 09/04 Consult: "X-ray of the foot is showing air and possible gas formation." 09/05 IM: "Left foot gangrene and wound infection with cellulitis status post excision and debridement and 09/04." Treatment: IV Unasyn 3gm Q6H 09/04-; IV Zosyn 3.375gm x1 on 09/03; IV Vancomycin 1750mg x1 on 09/03; IV Vancomycin 1750mg Q8H 09/03-09/05 09/04 Procedure: Left foot gangrene, chronic wound, possible osteomyelitis. S/P excisional debridement of left foot wound. After work up and study can you further specify the type of gangrene? [ x ] Gas gangrene [ ] Other, please specify [ ] Unable to determine MTDD
[2023-09-07] MEDS: COLLAGENASE 250 UNIT/GM OINTMENT 30 GM TUBE TOPICAL SCH (05:52)
[2023-09-07 08:18] LABS: African American GFR (CKD) >90 (>60 ml/min/1.73 sqM); Anion Gap 3 mmol/L; Blood Urea Nitrogen 7 mg/dL (9-20); Calcium 7.6 mg/dL (8.4-10.2); Carbon Dioxide 26 mmol/L (22-30); Chloride 100 mmol/L (98-107); Glucose 116 mg/dL (74-99); Magnesium 1.6 mg/dL (1.6-2.3); Non-African American GFR(CKD) >90 (>60 ml/min/1.73 sqM); Potassium 3.1 mmol/L (3.5-5.1); Sodium 129 mmol/L (137-145)
--- NOTE | 2023-09-07 10:17 | P.PN ---
Subjective Patient is seen in follow-up for hyponatremia. Sodium level slightly better. Oral intake good. No vomiting or diarrhea. Good urine output. Vital signs are stable. General: No acute distress. HEENT: Head exam is unremarkable. LUNGS: No audible rhonchi or wheezes. HEART: Rate and Rhythm are regular. ABDOMEN: Nontender. EXTREMITITES: Left foot wrapped. 1+ edema. Objective - Vital Signs Vital signs: Vital Signs Temp 98 F 09/07/23 08:50 Pulse 62 09/07/23 08:50 Resp 17 09/07/23 08:50 BP 146/79 09/07/23 08:50 Pulse Ox 95 09/07/23 08:50 FiO2 Intake & Output 09/06/23 09/07/23 09/07/23 18:59 06:59 18:59 Intake Total 720 Output Total 1974 1849 Balance -5 -1849 Intake: Oral 720 Output: Urine 1974 1849 Other: Voiding Method Indwelling Catheter Indwelling Catheter Indwelling Catheter - Labs CBC & Chem 7: 09/04/23 06:28 09/07/23 07:43 Labs: Abnormal Lab Results - Last 24 Hours (Table) 09/07/23 Range/Units 07:43 Sodium 129 L (137-145) mmol/L Potassium 3.1 L (3.5-5.1) mmol/L BUN 7 L (9-20) mg/dL Creatinine 0.58 L (0.66-1.25) mg/dL Glucose 116 H (74-99) mg/dL Calcium 7.6 L (8.4-10.2) mg/dL Microbiology - Last 24 Hours (Table) 09/03/23 11:10 Blood Culture - Preliminary Blood 09/03/23 11:10 Blood Culture - Preliminary Blood 09/04/23 16:51 Gram Stain - Preliminary Foot - Left Wound Culture - Preliminary Gram Neg Bacilli Assessment and Plan Plan: Assessment: 1. Hyponatremia from poor solute intake and excessive fluid intake. Also component of NSAID use. Urine sodium less than 20 and urine osmolality 312. Improved with IV hydration. TSH normal. Sodium level 129 today. 2. Left foot wound on antibiotics. Culture positive for Proteus. Infectious disease and vascular surgery following. Status post debridement September 04, 2023. 3. Peripheral arterial disease with prior stenting. 4. Urinary retention status post Stearns catheter placement. On Flomax. 5. Hypokalemia from diuresis. Plan: Encouraged oral intake. Maintain 1500 cc fluid restriction. Repeat Lasix 20 mg IV once today. Replace potassium. Repeat labs in the morning.
[2023-09-07] MEDS: MAGNESIUM SULFATE-D5W PMX 1 GM in DEXTROSE/WATER 1 100ML.BAG IVPB SCH (10:25)
[2023-09-07] MEDS: FUROSEMIDE 10 MG/ML 2 ML VIAL IV STA (10:26)
[2023-09-07] MEDS: POTASSIUM CHLORIDE ER 20 MEQ TAB.ER PO SCH (10:26)
[2023-09-07] MEDS ORDERED: Potassium Replacement Protocol 1 EACH MISC MISCELLANE PRN (12:27)
--- NOTE | 2023-09-07 12:29 | P.PN ---
Subjective 57-year-old gentleman with past medical history significant for duodenal ulcer, history of gastrointestinal bleed, peripheral arterial disease history of s/p right femoral endarterectomy, right SFA and profunda embolectomy 2016, history of colon diverticulosis, history of COPD, alcohol use, history of depression presents to the emergency department with complaints of wound noted on his foot for approximately 8 months. Patient said he has been using topical antibiotic however recently patient has noted that the wound was getting worse. Patient states that for approximately 1 week he has not removed his socks and decided to come to the emergency since patient was unable to walk. Patient does endorse that he has history of arterial disease however denies history of diabetes. Workup initiated in ER included CBC which showed WBC of 10.7 hemoglobin 12.6 platelet count of 329 Chemistry obtained in ER showed sodium of 119, potassium 4.2, dioxide 21 BUN 10 creatinine 0.53 X-ray obtained in ER showed soft tissue wound lateral to the fifth metatarsal head.. Further evaluation ordered including CT foot Patient started on IV Zosyn and vancomycin admitted to medical floor 09/04/23: patient seen and evaluated at bedside, CT angiogram lower extremity reviewed bilateral moderate to severe occlusive disease noted. , vascular surgery consulted. Patient started on aspirin and Lipitor. Appreciate input from Infectious Disease continue patient on IV antibiotic continue with wound care. Patient going for wound debridement made n.p.o. patient made suicidal ideation, continue one-to-one sitter will consult psychiatry 09/05/2023 This is a pleasant 57 years old male who presents on 09/03 for left foot infection on the wound which was been going on for 8 months, recently getting worse. He is status post excision and debridement and 09/04. Today postop day #1. His left foot in a dressing and pain was controlled. 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 When asked the patient he told me he has depression but he denies suicidal ideation or homicidal ideation currently. No evidence of active delirium tremens or alcohol withdrawal symptoms His wound culture is growing sensitive for Proteus and the vancomycin was discontinued Discussed with staff 09/06/2023 Patient transferred to [address] [place] [address] after the angiogram done yesterday by vascular surgery team showing significant peripheral vascular disease involvement the left lower extremity including the iliac arteries and tibia arteries as well. Patient remains on Unasyn and wound culture, Proteus, repeat wound culture growing gram-negative bacilli which is pending for now Patients sodium 128 and he has evidence of bilateral leg swelling. Is status post Lasix 20 mg 1 today 09/07/2023 Patient is awake and alert, no pain no distress, no new complaints No chest pain or dyspnea His left foot wound with a dressing in place. No significant pain Patient is planned to go for OR today for revascularization and direct hysterectomy and possible bypass procedure with vascular surgery team Patient low potassium and magnesium been replaced per protocol He is on Unasyn. Local withdrawal Objective - Vital Signs Vital signs: Vital Signs Temp 98 F 09/07/23 08:50 Pulse 62 09/07/23 08:50 Resp 17 09/07/23 08:50 BP 146/79 09/07/23 08:50 Pulse Ox 95 09/07/23 08:50 FiO2 Intake & Output 09/06/23 09/07/23 09/07/23 18:59 06:59 18:59 Intake Total 720 Output Total 1974 1849 Balance -1255 -1849 Intake: Oral 720 Output: Urine 1974 1849 Other: Voiding Method Indwelling Catheter Indwelling Catheter Indwelling Catheter - Exam GENERAL: The patient is alert and oriented x3, not in any acute distress. Well developed, well nourished. HEENT: Pupils are round and equally reacting to light. EOMI. No scleral icterus. No conjunctival pallor. Normocephalic, atraumatic. No pharyngeal erythema. No thyromegaly. CARDIOVASCULAR: S1 and S2 present. No murmurs, rubs, or gallops. PULMONARY: Chest is clear to auscultation, no wheezing , no crackles. ABDOMEN: Soft, nontender, nondistended, normoactive bowel sounds. No palpable organomegaly. MUSCULOSKELETAL: No joint swelling or deformity. -EXTREMITIES: No cyanosis, clubbing, or pedal edema. Left foot surgical wound with a recent a Place. Rest of exam is deferred to surgery team NEUROLOGICAL: Gross neurological examination did not reveal any focal deficits. SKIN: No rashes. no petechiae. - Labs CBC & Chem 7: 09/04/23 06:28 09/07/23 07:43 Labs: Abnormal Lab Results - Last 24 Hours (Table) 09/07/23 Range/Units 07:43 Sodium 129 L (137-145) mmol/L Potassium 3.1 L (3.5-5.1) mmol/L BUN 7 L (9-20) mg/dL Creatinine 0.58 L (0.66-1.25) mg/dL Glucose 116 H (74-99) mg/dL Calcium 7.6 L (8.4-10.2) mg/dL Microbiology - Last 24 Hours (Table) 09/04/23 16:51 Gram Stain - Final Foot - Left Wound Culture - Final Proteus vulgaris 09/03/23 11:10 Blood Culture - Preliminary Blood 09/03/23 11:10 Blood Culture - Preliminary Blood Assessment and Plan Assessment: Left foot gangrene and wound infection with cellulitis status post excision and debridement and 09/04. Angiogram showing significant disease of the left lower extremity Depression, with previous suicidal ideation. He is improved and patient was by psychiatrist who discontinued the sitter Alcohol lose disorder, patient consult and increased to quit. No withdrawal symptoms currently Hyponatremia, hypervolemic Bilateral pitting leg edema Plan: Continue with Unasyn. Follow-up final wound culture results Psychiatric evaluation is appreciated. Psychiatric team discontinued sitter and found patient does not meet criteria for inpatient psych unit, continue with medications recommended by psychiatrist Monitor sodium level and follow with hay buckler recommendation. Status post Lasix Vascular surgery team of the case and patient is status post angiogram showing significant disease of the left lower extremity. Labs and medication were reviewed.. Continue same treatment. Continue with symptomatic treatment. Resume home medication. Monitor labs and vitals. DVT and GI prophylaxis. Further recommendations as per clinical course of the patient DVT prophylaxis: Subcutaneous heparin GI Prophylaxis: Pepcid PT/OT: Subacute rehab, I talked to the patient and he is agreeable Prognosis is guarded
--- NOTE | 2023-09-07 14:08 | P.PN ---
Subjective Progress Note Date: 09/07/23 Principal diagnosis: Chronic wound, peripheral arterial disease Patient is seen and examined today as a follow-up. He was initially scheduled to undergo left lower extremity bypass surgery with atherectomy today however his surgery will be rescheduled for next week sometime due to emergency cases in the operating room. Patient is afebrile. He denies any pain currently. Objective - Vital Signs Vital signs: Vital Signs Temp 98.1 F 09/07/23 12:00 Pulse 65 09/07/23 12:00 Resp 17 09/07/23 12:00 BP 146/83 09/07/23 12:00 Pulse Ox 95 09/07/23 12:00 FiO2 Intake & Output 09/06/23 09/07/23 09/07/23 18:59 06:59 18:59 Intake Total 720 10 Output Total 1974 1849 2800 Balance -1255 -1850 -1970 Intake: IV 10 Invasive Line 6 10 Oral 720 Output: Urine 19740 Other: Voiding Method Indwelling Catheter Indwelling Catheter Indwelling Catheter - Exam General appearance: The patient is alert, oriented, appears in no acute distress. HET: Head is normocephalic and atraumatic. Pupils are equal and reactive. Neck: Supple. Extremities: Left lower extremity with dressing clean dry and intact. Neurological: No focal deficits. - Labs CBC & Chem 7: 09/04/23 06:28 09/07/23 07:43 Labs: Abnormal Lab Results - Last 24 Hours (Table) 09/07/23 Range/Units 07:43 Sodium 129 L (137-145) mmol/L Potassium 3.1 L (3.5-5.1) mmol/L BUN 7 L (9-20) mg/dL Creatinine 0.58 L (0.66-1.25) mg/dL Glucose 116 H (74-99) mg/dL Calcium 7.6 L (8.4-10.2) mg/dL Microbiology - Last 24 Hours (Table) 09/04/23 16:51 Gram Stain - Final Foot - Left Wound Culture - Final Proteus vulgaris 09/03/23 11:10 Blood Culture - Preliminary Blood 09/03/23 11:10 Blood Culture - Preliminary Blood Assessment and Plan Assessment: 1. 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 Annamaria 6 peripheral arterial disease 3. Chronic right foot/lower extremity wound 4. Cellulitis 5. History of peripheral arterial disease with previous right lower extremity stenting and femoropopliteal bypass 6. Suicidal ideations on suicide watch Plan: 1. Patient may have regular diet 2. May resume Lovenox 3. Patient is status post angiogram 4. Continue with recommendations from infectious disease 5. Patient was scheduled for left femoral endarterectomy with femoral-tibial b ypass with in situ graft, however this will need to be rescheduled for sometime next week 6. Local wound care per recommendations from wound care clinic 7. If planning on discharge patient is cleared from vascular surgery for discharge and may have bypass done as an outpatient. Thank you for this consultation, we will continue to follow. The impression and plan of care has been dictated as directed. Dr. Stearns I performed a history and examination of this patient, discussed the same with the dictator. I agree with the dictator's note ,documented as a scribe. Any additional findings or plans will be noted.
--- NOTE | 2023-09-07 15:23 | P.PN ---
Subjective Progress Note Date: 09/07/23 Principal diagnosis: Left foot wound and cellulitis Patient is a 57-year-old male with a past medical history significant for COPD PAD in this patient who did have a previous history of right femoropopliteal bypass at [facility] anxiety depression current ever yday smoker presented to the hospital worsening discoloration and wound to the left foot that has been there for couple of months. Patient is status post excisional debridement of the left foot completed by vascular surgery operative report mention no evidence of osteomyelitis. On today's evaluation that is 09/07/2023,the patient denies any fever or any chills, patient is breathing comfortably on room air, the patient denies chest pain shortness of breath and no significant cough, patient denies abdominal pain, no nausea vomiting or diarrhea. Patient pain to the left foot slightly decreased in intensity. Patient did have a creatinine 0.58 foot culture growing Proteus that is sensitive to Unasyn anaerobe cultures so far negative Objective - Vital Signs Vital signs: Vital Signs Temp 98.1 F 09/07/23 12:00 Pulse 65 09/07/23 12:00 Resp 17 09/07/23 12:00 BP 146/83 09/07/23 12:00 Pulse Ox 95 09/07/23 12:00 FiO2 Intake & Output 09/06/23 09/07/23 09/07/23 18:59 06:59 18:59 Intake Total 720 10 Output Total 19740 2800 Balance -1530 -4654 -4319 Weight 99.79 kg Intake: IV 10 Invasive Line 6 10 Oral 720 Output: Urine 19740 Other: Voiding Method Indwelling Catheter Indwelling Catheter Indwelling Catheter - Exam GENERAL DESCRIPTION: Middle-age male lying in bed in no distress RESPIRATORY SYSTEM: Unlabored breathing , decreased breath sounds at bases HEART: S1 S2 regular rate and rhythm , ABDOMEN: Soft , no tenderness EXTREMITIES: Left foot currently dressed minimal drainage on the dressing - Labs CBC & Chem 7: 09/04/23 06:28 09/07/23 14:36 Labs: Abnormal Lab Results - Last 24 Hours (Table) 09/07/23 Range/Units 07:43 Sodium 129 L (137-145) mmol/L Potassium 3.1 L (3.5-5.1) mmol/L BUN 7 L (9-20) mg/dL Creatinine 0.58 L (0.66-1.25) mg/dL Glucose 116 H (74-99) mg/dL Calcium 7.6 L (8.4-10.2) mg/dL Microbiology - Last 24 Hours (Table) 09/04/23 16:51 Anaerobic Culture - Final Foot - Left 09/04/23 16:51 Gram Stain - Final Foot - Left Wound Culture - Final Proteus vulgaris 09/03/23 11:10 Blood Culture - Preliminary Blood 09/03/23 11:10 Blood Culture - Preliminary Blood Assessment and Plan (1) Cellulitis of left foot Current Visit: Yes Status: Acute Code(s): L03.116 - CELLULITIS OF LEFT LOWER LIMB SNOMED Code(s): 88398256939494984 (2) Infected wound Current Visit: Yes Status: Acute Code(s): T14.8XXA - OTHER INJURY OF UNSPECIFIED BODY REGION, INITIAL ENCOUNTER; L08.9 - LOCAL INFECTION OF THE SKIN AND SUBCUTANEOUS TISSUE, UNSP SNOMED Code(s): 55805275 Plan: 1-1patient is a 57-year-old male past medical history significant for PAD in this patient current smoker presented to hospital with extensive i nfection/wound to the left foot area likely component of ischemia with secondary cellulitis 2-patient is status post surgical debridement and deep culture, operative report did not mention any extension of the wound 3patient cultures currently growing Proteus sensitive to Unasyn but resistant/intermediate to Rocephin 4-keeping in mind extensive infection will order PICC line for outpatient IV Un asyn Dictation was produced using [employer] dictation software. please excuse any grammatical, word or spelling errors. Time with Patient: Less than 30
[2023-09-07] MEDS: LIDOCAINE 1% INJ 10MG/ML (20 ML MDV) SQ ONE (15:33)
[2023-09-07] MEDS: POTASSIUM CHLORIDE ER 20 MEQ TAB.ER PO STA (16:25)
--- NOTE | 2023-09-07 16:51 | P.OP ---
Date of Procedure: 09/07/23 Description of Procedure: Preoperative diagnosis Need for long-term IV antibiotic access. Postoperative Diagnosis: Same. Procedure(s) Performed: Ultrasound-guided cannulation right basilic vein. Insertion of peripherally inserted central catheter under fluoroscopic guidance. Anesthesia: local 1% lidocaine aissatou Surgeon: Daryn Estimated Blood Loss (ml): 5 IV fluids (ml): 0 Urine output (ml): 0 Pathology: none sent Condition: stable Disposition: no change Indications for Procedure: Patient requires long-term IV antibiotics as an outpatient patient is offered a PICC line to allow for intravenous administration of antibiotics. Description of Procedure: Patient was brought to the special procedure suite. The right upper extremity sterilely prepped and draped in usual manner. Ultrasound was utilized to identify the basilic vein which was normally compressible free of visible thrombus. There was permenant image was stored. Noted the early bifurcation of the brachial artery visualized the radial and ulnar arteries up in the upper arm. 1% Xylocaine was utilized for local anesthesia tissues overlying the vein. Through this anesthetized area and with the aid of ultrasound a micropuncture needle was utilized to cannulate the vein. Once cannulated, Softip guidewire was advanced into the vein. The needle was withdrawn and a micropuncture sheath and dilator advanced over the guidewire. The guidewire was withdrawn and exchanged for the PICC guidewire and measured 42 cm to the cavoatrial junction. The catheter was cut to size and advanced into the cavoatrial junction without resistance. The sheath was peeled away. Blood was easily withdrawn through the catheter and the catheter was then flushed with heparinized saline solution and secured to the skin. Patient tolerated procedure well and was returned to their room in satisfactory and stable condition.
--- NOTE | 2023-09-07 17:05 | IR ---
EXAMINATION TYPE: IR cvc insert >=5 years Intraoperative/procedural fluoroscopic services were provid ed. CLINICAL INDICATION:Male, 57 years old with history of ABX, 42cm, left basilic vein, 0.3min fluoro, 0 .[id number]; , [facility] Total fluoroscopy time is 0.3 min. DAP: 0.209 Gycm2 Please see the operative/procedural note for further details.
[2023-09-07] MEDS: POTASSIUM CHLORIDE ER 20 MEQ TAB.ER PO ONE (17:31)
[2023-09-08 09:17] LABS: African American GFR (CKD) >90 (>60 ml/min/1.73 sqM); Anion Gap 5 mmol/L; Blood Urea Nitrogen 10 mg/dL (9-20); Calcium 7.9 mg/dL (8.4-10.2); Carbon Dioxide 26 mmol/L (22-30); Chloride 100 mmol/L (98-107); Glucose 114 mg/dL (74-99); Magnesium 1.7 mg/dL (1.6-2.3); Non-African American GFR(CKD) >90 (>60 ml/min/1.73 sqM); Potassium 3.7 mmol/L (3.5-5.1); Sodium 131 mmol/L (137-145)
--- NOTE | 2023-09-08 11:07 | P.PN ---
Subjective 57-year-old gentleman with past medical history significant for duodenal ulcer, history of gastrointestinal bleed, peripheral arterial disease history of s/p right femoral endarterectomy, right SFA and profunda embolectomy 2016, history of colon diverticulosis, history of COPD, alcohol use, history of depression presents to the emergency department with complaints of wound noted on his foot for approximately 8 months. Patient said he has been using topical antibiotic however recently patient has noted that the wound was getting worse. Patient states that for approximately 1 week he has not removed his socks and decided to come to the emergency since patient was unable to walk. Patient does endorse that he has history of arterial disease however denies history of diabetes. Workup initiated in ER included CBC which showed WBC of 10.7 hemoglobin 12.6 platelet count of 329 Chemistry obtained in ER showed sodium of 119, potassium 4.2, dioxide 21 BUN 10 creatinine 0.53 X-ray obtained in ER showed soft tissue wound lateral to the fifth metatarsal head.. Further evaluation ordered including CT foot Patient started on IV Zosyn and vancomycin admitted to medical floor 09/04/23: patient seen and evaluated at bedside, CT angiogram lower extremity reviewed bilateral moderate to severe occlusive disease noted. , vascular surgery consulted. Patient started on aspirin and Lipitor. Appreciate input from Infectious Disease continue patient on IV antibiotic continue with wound care. Patient going for wound debridement made n.p.o. patient made suicidal ideation, continue one-to-one sitter will consult psychiatry 09/05/2023 This is a pleasant 57 years old male who presents on 09/03 for left foot infection on the wound which was been going on for 8 months, recently getting worse. He is status post excision and debridement and 09/04. Today postop day #1. His left foot in a dressing and pain was controlled. 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 When asked the patient he told me he has depression but he denies suicidal ideation or homicidal ideation currently. No evidence of active delirium tremens or alcohol withdrawal symptoms His wound culture is growing sensitive for Proteus and the vancomycin was discontinued Discussed with staff 09/06/2023 Patient transferred to [address] [place] [id number] after the angiogram done yesterday by vascular surgery team showing significant peripheral vascular disease involvement the left lower extremity including the iliac arteries and tibia arteries as well. Patient remains on Unasyn and wound culture, Proteus, repeat wound culture growing gram-negative bacilli which is pending for now Patients sodium 128 and he has evidence of bilateral leg swelling. Is status post Lasix 20 mg 1 today 09/07/2023 Patient is awake and alert, no pain no distress, no new complaints No chest pain or dyspnea His left foot wound with a dressing in place. No significant pain Patient is planned to go for OR today for revascularization and direct hysterectomy and possible bypass procedure with vascular surgery team Patient low potassium and magnesium been replaced per protocol He is on Unasyn. Local withdrawal 09/08/2023 Patient awake and alert He is supposed to get surgery for his peripheral vascular disease of the left lower extremity including endarterectomy and bypass procedure however it was held and vascular surgery are considering doing it as an outpatient. In the meantime he remains being treated with IV Unasyn for his left foot wound and infection, PICC line was placed for IV antibiotics Unasyn upon discharge per recommendation of ID team Patient required ECF upon discharge, prior authorization is still pending He is on multiple pain regimen Objective - Vital Signs Vital signs: Vital Signs Temp 98.2 F 09/08/23 08:30 Pulse 74 09/08/23 08:30 Resp 16 09/08/23 08:30 BP 112/62 09/08/23 08:30 Pulse Ox 95 09/08/23 08:30 FiO2 Intake & Output 09/07/23 09/08/23 09/08/23 18:59 06:59 18:59 Intake Total 490 20 240 Output Total 2800 1100 Balance -2310 -1080 240 Weight 99.79 kg Intake: IV 10 20 Invasive Line 6 10 20 Oral 480 240 Output: Urine 2800 1100 Other: Voiding Method Indwelling Catheter Indwelling Catheter Indwelling Catheter - Exam GENERAL: The patient is alert and oriented x3, not in any acute distress. Well developed, well nourished. HEENT: Pupils are round and equally reacting to light. EOMI. No scleral icterus. No conjunctival pallor. Normocephalic, atraumatic. No pharyngeal erythema. No thyromegaly. CARDIOVASCULAR: S1 and S2 present. No murmurs, rubs, or gallops. PULMONARY: Chest is clear to auscultation, no wheezing , no crackles. ABDOMEN: Soft, nontender, nondistended, normoactive bowel sounds. No palpable organomegaly. MUSCULOSKELETAL: No joint swelling or deformity. -EXTREMITIES: No cyanosis, clubbing, or pedal edema. Left foot surgical wound with a recent a Place. Rest of exam is deferred to surgery team NEUROLOGICAL: Gross neurological examination did not reveal any focal deficits. SKIN: No rashes. no petechiae. - Labs CBC & Chem 7: 09/04/23 06:28 09/08/23 08:22 Labs: Abnormal Lab Results - Last 24 Hours (Table) 09/07/23 09/08/23 Range/Units 14:36 08:22 Sodium 131 L (137-145) mmol/L Potassium 3.2 L (3.5-5.1) mmol/L Creatinine 0.64 L (0.66-1.25) mg/dL Glucose 114 H (74-99) mg/dL Calcium 7.9 L (8.4-10.2) mg/dL Microbiology - Last 24 Hours (Table) 09/04/23 16:51 Anaerobic Culture - Final Foot - Left 09/04/23 16:51 Gram Stain - Final Foot - Left Wound Culture - Final Proteus vulgaris Assessment and Plan Assessment: Left foot gangrene and wound infection with cellulitis status post excision and debridement and 09/04. Angiogram showing significant disease of the left lower extremity Depression, with previous suicidal ideation. He is improved and patient was by psychiatrist who discontinued the sitter Alcohol lose disorder, patient consult and increased to quit. No withdrawal symptoms currently Hyponatremia, hypervolemic Bilateral pitting leg edema Plan: Continue with Unasyn. Follow-up final wound culture results Psychiatric evaluation is appreciated. Psychiatric team discontinued sitter and found patient does not meet criteria for inpatient psych unit, continue with medications recommended by psychiatrist Monitor sodium level and follow with rn clinical resource recommendation. Status post Lasix Vascular surgery team of the case and patient is status post angiogram showing significant disease of the left lower extremity. Labs and medication were reviewed.. Continue same treatment. Continue with symptomatic treatment. Resume home medication. Monitor labs and vitals. DVT and GI prophylaxis. Further recommendations as per clinical course of the patient DVT prophylaxis: Subcutaneous heparin GI Prophylaxis: Pepcid PT/OT: Subacute rehab, I talked to the patient and he is agreeable Prognosis is guarded
--- NOTE | 2023-09-08 11:29 | P.PN ---
Subjective Patient is seen for follow-up for hyponatremia. Improved with IV saline. No significant complaints today. Sodium has improved to 131 today. Objective - Vital Signs Vital signs: Vital Signs Temp 98.2 F 09/08/23 08:30 Pulse 74 09/08/23 08:30 Resp 16 09/08/23 08:30 BP 112/62 09/08/23 08:30 Pulse Ox 95 09/08/23 08:30 FiO2 Intake & Output 09/07/23 09/08/23 09/08/23 18:59 06:59 18:59 Intake Total 490 20 240 Output Total 2800 1100 Balance -2310 -1080 240 Weight 99.79 kg Intake: IV 10 20 Invasive Line 6 10 20 Oral 480 240 Output: Urine 2800 1100 Other: Voiding Method Indwelling Catheter Indwelling Catheter Indwelling Catheter - Exam Patient is awake, comfortable, no acute distress Examination of the heart S1 and S2 Examination of the lungs bilateral breath sounds are heard Abdomen is soft nontender Examination of lower extremities shows no edema. Left foot is currently wrapped. ALUMINUM SIDING INSTALLER exam grossly intact - Labs CBC & Chem 7: 09/04/23 06:28 09/08/23 08:22 Labs: Abnormal Lab Results - Last 24 Hours (Table) 09/07/23 09/08/23 Range/Units 14:36 08:22 Sodium 131 L (137-145) mmol/L Potassium 3.2 L (3.5-5.1) mmol/L Creatinine 0.64 L (0.66-1.25) mg/dL Glucose 114 H (74-99) mg/dL Calcium 7.9 L (8.4-10.2) mg/dL Microbiology - Last 24 Hours (Table) 09/04/23 16:51 Anaerobic Culture - Final Foot - Left 09/04/23 16:51 Gram Stain - Final Foot - Left Wound Culture - Final Proteus vulgaris Assessment and Plan Assessment: 1. Hyponatremia from poor solute intake and excessive fluid intake. Also component of NSAID use. Urine sodium less than 20 and urine osmolality 312. Improved with IV saline. Also received a dose of IV Lasix on 09/07/2023. TSH normal. Sodium level 131 today. 2. Left foot wound on antibiotics. Culture positive for Proteus. Infectious disease and vascular surgery following. Status post debridement September 04, 2023. 3. Peripheral arterial disease with prior stenting. 4. Urinary retention status post Stearns catheter placement. On Flomax. 5. Hypokalemia from diuresis. Plan: Continue off of IV fluids and diuretics Encourage increase oral intake particularly protein Repeat labs in AM.
--- NOTE | 2023-09-08 13:23 | P.PN ---
Subjective Progress Note Date: 09/08/23 Principal diagnosis: Left foot wound and cellulitis Patient is a 57-year-old male with a past medical history significant for COPD PAD in this patient who did have a previous history of right femoropopliteal bypass at [facility] anxiety depression current ever yday smoker presented to the hospital worsening discoloration and wound to the left foot that has been there for couple of months. Patient is status post excisional debridement of the left foot completed by vascular surgery operative report mention no evidence of osteomyelitis. On today's evaluation that is 09/08/2023,the patient remains to be afebrile, patient is on room air not requiring supplemental oxygen and denies any shortness of breath no chest pain or cough.Patient denies having any nausea or vomiting, no abdominal pain and no diarrhea has been reported patient has been complaining of pain to the left foot area no worsening though. Patient did have a creatinine 0.64 Objective - Vital Signs Vital signs: Vital Signs Temp 98.3 F 09/08/23 12:00 Pulse 74 09/08/23 12:00 Resp 16 09/08/23 12:00 BP 131/76 09/08/23 12:00 Pulse Ox 96 09/08/23 12:00 FiO2 Intake & Output 09/07/23 09/08/23 09/08/23 18:59 06:59 18:59 Intake Total 490 20 240 Output Total 2800 1100 Balance -2310 -1080 240 Weight 99.79 kg Intake: IV 10 20 Invasive Line 6 10 20 Oral 480 240 Output: Urine 2800 1100 Other: Voiding Method Indwelling Catheter Indwelling Catheter Indwelling Catheter - Exam GENERAL DESCRIPTION: Middle-age male lying in bed in no distress RESPIRATORY SYSTEM: Unlabored breathing , decreased breath sounds at bases HEART: S1 S2 regular rate and rhythm , ABDOMEN: Soft , no tenderness EXTREMITIES: Left foot currently dressed minimal drainage on the dressing - Labs CBC & Chem 7: 09/04/23 06:28 09/08/23 08:22 Labs: Abnormal Lab Results - Last 24 Hours (Table) 09/07/23 09/08/23 Range/Units 14:36 08:22 Sodium 131 L (137-145) mmol/L Potassium 3.2 L (3.5-5.1) mmol/L Creatinine 0.64 L (0.66-1.25) mg/dL Glucose 114 H (74-99) mg/dL Calcium 7.9 L (8.4-10.2) mg/dL Microbiology - Last 24 Hours (Table) 09/04/23 16:51 Anaerobic Culture - Final Foot - Left 09/04/23 16:51 Gram Stain - Final Foot - Left Wound Culture - Final Proteus vulgaris Assessment and Plan (1) Cellulitis of left foot Current Visit: Yes Status: Acute Code(s): L03.116 - CELLULITIS OF LEFT LOWER LIMB SNOMED Code(s): 06652746772167182 (2) Infected wound Current Visit: Yes Status: Acute Code(s): T14.8XXA - OTHER INJURY OF UNSPECIFIED BODY REGION, INITIAL ENCOUNTER; L08.9 - LOCAL INFECTION OF THE SKIN AND SUBCUTANEOUS TISSUE, UNSP SNOMED Code(s): 38942118 Plan: 1-1patient is a 57-year-old male past medical history significant for PAD in this patient current smoker presented to hospital with extensive infection/wound to the left foot area likely component of ischemia with s econdary cellulitis 2-patient is status post surgical debridement and deep culture, operative report did not mention any extension of the wound 3patient cultures currently growing Proteus sensitive to Unasyn but resistant/intermediate to Rocephin, anaerobe culture have been negative 4-patient did get a PICC line for outpatient IV Unasyn currently waiting for insurance Auth before the patient could be [facility] to the [facility] or not continue with the Unasyn Mother at the bedside questions were answered Dictation was produced using [employer] NET dictation software. please excuse any grammatical, word or spelling errors. Time with Patient: Less than 30
--- NOTE | 2023-09-09 14:36 | P.PN ---
Subjective Patient is seen for follow-up for hyponatremia. Improved with IV saline. No significant complaints today. Sodium has improved to 131. Currently off of IV fluids. Tolerating oral intake. Objective - Vital Signs Vital signs: Vital Signs Temp 98.3 F 09/09/23 12:00 Pulse 81 09/09/23 12:00 Resp 16 09/09/23 12:00 BP 116/71 09/09/23 12:00 Pulse Ox 95 09/09/23 12:00 FiO2 Intake & Output 09/08/23 09/09/23 09/09/23 18:59 06:59 18:59 Intake Total 640 110 Output Total 650 1999 500 Balance -390 Intake: Oral 640 110 Output: Urine 650 1999 500 Uretheral (Stearns) 500 Other: Voiding Method Indwelling Catheter Indwelling Catheter Indwelling Catheter - Exam Patient is awake, comfortable, no acute distress Examination of the heart S1 and S2 Examination of the lungs bilateral breath sounds are heard Abdomen is soft nontender Examination of lower extremities shows no edema. Left foot is wrapped. FRONT COUNTER CLERK exam grossly intact - Labs CBC & Chem 7: 09/04/23 06:28 09/08/23 08:22 Labs: Microbiology - Last 24 Hours (Table) 09/03/23 11:10 Blood Culture - Final Blood 09/03/23 11:10 Blood Culture - Final Blood Assessment and Plan Assessment: 1. Hyponatremia from poor solute intake and excessive fluid intake. Also component of NSAID use. Urine sodium less than 20 and urine osmolality 312. Improved with IV saline. Also received a dose of IV Lasix on 09/07/2023. TSH normal. Sodium level 131 yesterday. 2. Left foot wound on antibiotics. Culture positive for Proteus. Infectious disease and vascular surgery following. Status post debridement September 04, 2023. 3. Peripheral arterial disease with prior stenting. 4. Urinary retention status post Stearns catheter placement. On Flomax. 5. Hypokalemia from diuresis. Plan: Continue off of IV fluids and diuretics Encourage increase oral intake particularly protein Repeat labs in AM.
--- NOTE | 2023-09-09 15:55 | P.PN ---
Subjective 57-year-old gentleman with past medical history significant for duodenal ulcer, history of gastrointestinal bleed, peripheral arterial disease history of s/p right femoral endarterectomy, right SFA and profunda embolectomy 2016, history of colon diverticulosis, history of COPD, alcohol use, history of depression presents to the emergency department with complaints of wound noted on his foot for approximately 8 months. Patient said he has been using topical antibiotic however recently patient has noted that the wound was getting worse. Patient states that for approximately 1 week he has not removed his socks and decided to come to the emergency since patient was unable to walk. Patient does endorse that he has history of arterial disease however denies history of diabetes. Workup initiated in ER included CBC which showed WBC of 10.7 hemoglobin 12.6 platelet count of 329 Chemistry obtained in ER showed sodium of 119, potassium 4.2, dioxide 21 BUN 10 creatinine 0.53 X-ray obtained in ER showed soft tissue wound lateral to the fifth metatarsal head.. Further evaluation ordered including CT foot Patient started on IV Zosyn and vancomycin admitted to medical floor 09/04/23: patient seen and evaluated at bedside, CT angiogram lower extremity reviewed bilateral moderate to severe occlusive disease noted. , vascular surgery consulted. Patient started on aspirin and Lipitor. Appreciate input from Infectious Disease continue patient on IV antibiotic continue with wound care. Patient going for wound debridement made n.p.o. patient made suicidal ideation, continue one-to-one sitter will consult psychiatry 09/05/2023 This is a pleasant 57 years old male who presents on 09/03 for left foot infection on the wound which was been going on for 8 months, recently getting worse. He is status post excision and debridement and 09/04. Today postop day #1. His left foot in a dressing and pain was controlled. 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 When asked the patient he told me he has depression but he denies suicidal ideation or homicidal ideation currently. No evidence of active delirium tremens or alcohol withdrawal symptoms His wound culture is growing sensitive for Proteus and the vancomycin was discontinued Discussed with staff 09/06/2023 Patient transferred to [address] [place] [address] after the angiogram done yesterday by vascular surgery team showing significant peripheral vascular disease involvement the left lower extremity including the iliac arteries and tibia arteries as well. Patient remains on Unasyn and wound culture, Proteus, repeat wound culture growing gram-negative bacilli which is pending for now Patients sodium 128 and he has evidence of bilateral leg swelling. Is status post Lasix 20 mg 1 today 09/07/2023 Patient is awake and alert, no pain no distress, no new complaints No chest pain or dyspnea His left foot wound with a dressing in place. No significant pain Patient is planned to go for OR today for revascularization and direct hysterectomy and possible bypass procedure with vascular surgery team Patient low potassium and magnesium been replaced per protocol He is on Unasyn. Local withdrawal 09/08/2023 Patient awake and alert He is supposed to get surgery for his peripheral vascular disease of the left lower extremity including endarterectomy and bypass procedure however it was held and vascular surgery are considering doing it as an outpatient. In the meantime he remains being treated with IV Unasyn for his left foot wound and infection, PICC line was placed for IV antibiotics Unasyn upon discharge per recommendation of ID team Patient required ECF upon discharge, prior authorization is still pending He is on multiple pain regimen 09/09/2039 Patient still being treated for his left foot infection and wound. He has evidence of peripheral vascular disease, initially vascular surgery team are planning to do revascularization procedure for his left lower extremity however currently this is was postponed until outpatient basis. Patient informed and he agreed He continues to improve with IV antibiotic, currently he is on IV Unasyn and plan for him to be discharged on IV antibiotic. PICC line is in place Patient also wants to be DNR Objective - Vital Signs Vital signs: Vital Signs Temp 98.4 F 09/09/23 08:20 Pulse 80 09/09/23 08:20 Resp 16 09/09/23 08:20 BP 122/69 09/09/23 08:20 Pulse Ox 94 L 09/09/23 08:20 FiO2 Intake & Output 09/08/23 09/09/23 09/09/23 18:59 06:59 18:59 Intake Total 640 110 Output Total 650 1999 Balance - Intake: Oral 640 110 Output: Urine 650 1999 Uretheral (Stearns) 500 Other: Voiding Method Indwelling Catheter Indwelling Catheter Indwelling Catheter - Exam GENERAL: The patient is alert and oriented x3, not in any acute distress. Well developed, well nourished. HEENT: Pupils are round and equally reacting to light. EOMI. No scleral icterus. No conjunctival pallor. Normocephalic, atraumatic. No pharyngeal erythema. No thyromegaly. CARDIOVASCULAR: S1 and S2 present. No murmurs, rubs, or gallops. PULMONARY: Chest is clear to auscultation, no wheezing , no crackles. ABDOMEN: Soft, nontender, nondistended, normoactive bowel sounds. No palpable or ganomegaly. MUSCULOSKELETAL: No joint swelling or deformity. -EXTREMITIES: No cyanosis, clubbing, or pedal edema. Left foot surgical wound with a recent a Place. Rest of exam is deferred to surgery team NEUROLOGICAL: Gross neurological examination did not reveal any focal deficits. SKIN: No rashes. no petechiae. - Labs CBC & Chem 7: 09/04/23 06:28 09/08/23 08:22 Labs: Microbiology - Last 24 Hours (Table) 09/03/23 11:10 Blood Culture - Final Blood 09/03/23 11:10 Blood Culture - Final Blood Assessment and Plan Assessment: Left foot gangrene and wound infection with cellulitis status post excision and debridement and 09/04. Angiogram showing significant disease of the left lower extremity Depression, with previous suicidal ideation. He is improved and patient was by psychiatrist who discontinued the sitter Alcohol lose disorder, patient consult and increased to quit. No withdrawal symptoms currently Hyponatremia, hypervolemic Bilateral pitting leg edema Plan: Continue with Unasyn. Follow-up final wound culture results Psychiatric evaluation is appreciated. Psychiatric team discontinued sitter and found patient does not meet criteria for inpatient psych unit, continue with medications recommended by psychiatrist Monitor sodium level and follow with gettering filament machine operator recommendation. Status post Lasix Vascular surgery team of the case and patient is status post angiogram showing significant disease of the left lower extremity. Labs and medication were reviewed.. Continue same treatment. Continue with symptomatic treatment. Resume home medication. Monitor labs and vitals. DVT and GI prophylaxis. Further recommendations as per clinical course of the patient DVT prophylaxis: Subcutaneous heparin GI Prophylaxis: Pepcid PT/OT: Subacute rehab, I talked to the patient and he is agreeable Prognosis is guarded
[2023-09-10] MEDS: ZINC OXIDE PASTE (Z-GUARD) 1 APPLIC TOPICAL SCH (00:35)
--- NOTE | 2023-09-10 10:51 | P.PN ---
Subjective Progress Note Date: 09/10/23 Principal diagnosis: Chronic wound, peripheral arterial disease Patient is seen and examined today as a follow-up. He has had no acute changes throughout the weekend. He is awaiting authorization for ECF. He has PICC line in place. Awaiting recommendations for outpatient IV antibiotics from infectious disease. Objective - Vital Signs Vital signs: Vital Signs Temp 98.3 F 09/10/23 04:02 Pulse 85 09/10/23 04:02 Resp 19 09/10/23 04:02 BP 113/66 09/10/23 04:02 Pulse Ox 93 L 09/10/23 04:02 FiO2 Intake & Output 09/09/23 09/10/23 09/10/23 18:59 06:59 18:59 Intake Total 1050 Output Total 950 2150 Balance 100 -2150 Intake: Oral 1050 Output: Urine 950 2150 Straight 450 850 Uretheral (Stearns) 500 Other: Voiding Method Indwelling Catheter - Exam General appearance: The patient is alert, oriented, appears in no acute distress. HET: Head is normocephalic and atraumatic. Pupils are equal and reactive. Neck: Supple. Extremities: Left lower extremity with dressing clean dry and intact. Neurological: No focal deficits. - Labs CBC & Chem 7: 09/04/23 06:28 09/08/23 08:22 Assessment and Plan Assessment: 1. 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 [place] 6 peripheral arterial disease 3. Chronic left foot/lower extremity wound status post debridement 4. Cellulitis 5. History of peripheral arterial disease with previous right lower extremity stenting and femoropopliteal bypass 6. Suicidal ideations on suicide watch Plan: 1. Continue daily dressing changes with recommendation from wound care 2. Continue with recommendations from infectious disease 3. Patient to follow-up this week with vascular surgery, to schedule outpatient left femoral endarterectomy with femoral tibial bypass with GSV in situ graft 4. Patient is cleared from vascular surgery for discharge Thank you for this consultation. The impression and plan of care has been dictated as directed. Dr. Payne I performed a history and examination of this patient, discussed the same with the dictator. I agree with the dictator's note ,documented as a scribe. Any additional findings or plans will be noted.
--- NOTE | 2023-09-10 11:15 | P.DS ---
Providers Date of admission: 09/03/23 13:37 Attending physician: Fredi Wagner MD Consults: 09/03/23 13:30 Consult Physician Routine Consulting Provider: Surekha Stearns Consult Reason/Comments: History of peripheral arterial disease with suspicion chr for limb ischemia Do you want consulting provider notified?: Yes Consult Physician Routine Consulting Provider: Torrie Shaffer Consult Reason/Comments: Foot infection suspected osteomyelitis Do you want consulting provider notified?: Yes 09/03/23 13:36 Consult Physician Routine Consulting Provider: Jcarlos Knutson Consult Reason/Comments: Acute hyponatremia Do you want consulting provider notified?: Yes 09/03/23 22:37 Consult Physician Routine Consulting Provider: Ted Barrientos Consult Reason/Comments: Suicidal thoughs Do you want consulting provider notified?: Yes, Notify in am Primary care physician: Stated None Hospital Course: Diagnosis: Left foot gangrene and wound infection with cellulitis status post excision and debridement on 09/04. Angiogram showing significant disease of the left lower extremity Depression, with previous suicidal ideation. He is improved and patient was cleared by psychiatrist who discontinued the sitter Alcohol lose disorder, patient consult and agrees to quit. No withdrawal symptoms currently Hyponatremia, hypervolemic Bilateral pitting leg edema Hospital course: 57-year-old gentleman with past medical history significant for duodenal ulcer, history of gastrointestinal bleed, peripheral arterial disease history of s/p right femoral endarterectomy, right SFA and profunda embolectomy 2016, history of colon diverticulosis, history of COPD, alcohol use, history of depression presents to the emergency department with complaints of wound noted on his foot for approximately 8 months. Patient said he has been using topical antibiotic however recently patient has noted that the wound was getting worse. Patient is admitted with extensive left foot cellulitis with infected wound and has been evaluated by vascular surgery team were following with him closely. He underwent excision and debridement on 09/04. Angiogram showing significant peripheral vascular disease of the left lower extremity, initially were planned to revascularization surgery in hospital however patient remains clinically stable and improving slowly and gradually while on antibiotic, the vascular surgery team recommend to do the procedure as an outpatient patient informed and he agrees He is currently covered with IV Unasyn per ID team recommendation went plan for him to continue with Unasyn upon discharge, right upper extremity PICC line placed and he tolerated his procedure well. Patient has no more alcohol withdrawal symptom. Psychiatrist evaluated the p atient and find him does not meet criteria for inpatient psych hospital. Sitter was discontinued. Patient currently denies overt depressive symptoms, also he is denying suicidal or homicidal ideation. No other new complaint Patient was cleared for discharge by vascular surgery team and infectious disease team. Problems and management plan were discussed with the patient and he verbalized understanding and acceptance Patient was found stable and can be discharged home in guarded prognosis however he needs follow-up as an outpatient. Patient was instructed to follow up with PCP within one week and patient agrees ( patient states he has no PCP, he was instructed to call his medical insurance provider to find a nearby PCP and he agrees) Patient was instructed to follow-up with vascular surgeon Dr. Car already in 1 week for procedure of revascularization of his lower extremity and he agrees. Also patient was instructed to follow-up with Dr. Hall from infectious disease in 1 week and he agrees Physical exam Gen: patient is a AAOx3, no distress CVS: S1-S2, RRR, no murmur Lungs: B/L CTA, no wheezing Abdomen: soft, no distention, no tenderness, positive bowel sounds Extremity: no leg edema or induration. Left foot surgical wound with a recent a Place. Rest of exam is deferred to surgery team Time spent more than 35 minutes Heart healthy diet Activity as tolerated Patient will require wound care while in rehab Plan - Discharge Summary Discharge Rx Participant: No New Discharge Prescriptions: No Action RX: ALPRAZolam [Xanax] 0.5 mg PO HS RX: Omeprazole 20 mg PO HS ALPRAZolam [Xanax] 0.25 mg PO DAILY PRN PRN Reason: Anxiety/SLEEP Citalopram Hydrobromide [CeleXA] 20 mg PO HS Discharge Medication List RX: ALPRAZolam [Xanax] 0.5 mg PO HS 02/22/17 [History] ALPRAZolam [Xanax] 0.25 mg PO DAILY PRN 09/03/23 [History] Citalopram Hydrobromide [CeleXA] 20 mg PO HS 09/03/23 [History] RX: Omeprazole 20 mg PO HS 09/03/23 [History] Follow up Appointment(s)/Referral(s): Marcos Payne DO [STAFF PHYSICIAN] - 1-2 Days None,Stated [Primary Care Provider] - 1-2 days [facility] [NON-STAFF] - 1 Week Torrie Shaffer MD [STAFF PHYSICIAN] - 1 Week Discharge/Stand Alone Forms: Area PCPs
--- NOTE | 2023-09-10 12:18 | P.PN ---
Subjective Progress Note Date: 09/09/23 Principal diagnosis: Left foot wound and cellulitis Patient is a 57-year-old male with a past medical history significant for COPD PAD in this patient who did have a previous history of right femoropopliteal bypass at [facility] anxiety depression current ever yday smoker presented to the hospital worsening discoloration and wound to the left foot that has been there for couple of months. Patient is status post excisional debridement of the left foot completed by vascular surgery operative report mention no evidence of osteomyelitis. On today's evaluation that is 09/09/2023, the patient continues to be afebrile, the patient is on room air and breathing comfortably, the Pt denies having any chest pain or cough, the patient denies having any abdominal pain no vomiting or any diarrhea has been reported by the nursing staff pain to the left foot is currently controlled with the pain medication. No new labs today Objective - Vital Signs Vital signs: Vital Signs Temp 98.4 F 09/09/23 08:20 Pulse 80 09/09/23 08:20 Resp 16 09/09/23 08:20 BP 122/69 09/09/23 08:20 Pulse Ox 94 L 09/09/23 08:20 FiO2 Intake & Output 09/08/23 09/09/23 09/09/23 18:59 06:59 18:59 Intake Total 640 110 Output Total 650 1999 500 Balance - Intake: Oral 640 110 Output: Urine 650 1999 500 Uretheral (Stearns) 500 Other: Voiding Method Indwelling Catheter Indwelling Catheter Indwelling Catheter - Exam GENERAL DESCRIPTION: Middle-age male lying in bed in no distress RESPIRATORY SYSTEM: Unlabored breathing , decreased breath sounds at bases HEART: S1 S2 regular rate and rhythm , ABDOMEN: Soft , no tenderness EXTREMITIES: Left foot currently dressed minimal drainage on the dressing - Labs CBC & Chem 7: 09/04/23 06:28 09/08/23 08:22 Labs: Microbiology - Last 24 Hours (Table) 09/03/23 11:10 Blood Culture - Final Blood 09/03/23 11:10 Blood Culture - Final Blood Assessment and Plan (1) Cellulitis of left foot Current Visit: Yes Status: Acute Code(s): L03.116 - CELLULITIS OF LEFT LOWER LIMB SNOMED Code(s): 25293458204468206 (2) Infected wound Current Visit: Yes Status: Acute Code(s): T14.8XXA - OTHER INJURY OF UNSPECIFIED BODY REGION, INITIAL ENCOUNTER; L08.9 - LOCAL INFECTION OF THE SKIN AND SUBCUTANEOUS TISSUE, UNSP SNOMED Code(s): 18313203 Plan: 1-1patient is a 57-year-old male past medical history significant for PAD in this patient current smoker presented to hospital with extensive infection/wound to the left foot area likely component of ischemia with secondary cellulitis 2-patient is status post surgical debridement and deep culture, operative report did not mention any extension of the wound 3patient cultures currently growing Proteus sensitive to Unasyn but resistant /intermediate to Rocephin, anaerobe culture have been negative 4-patient did get a PICC line for outpatient IV Unasyn currently waiting for insurance Auth before the patient could be sent to the penitentiary 5-patient to continue with the Unasyn and monitor clinical course closely Dictation was produced using [employer] dictation software. please excuse any grammatical, word or spelling errors.
[2023-09-10 14:12] LABS: Potassium 3.3 mmol/L (3.5-5.1)
[2023-09-10] MEDS: MAGNESIUM SULFATE-D5W PMX 1 GM in DEXTROSE/WATER 1 100ML.BAG IVPB ONE (21:15)
[2023-09-10] MEDS: POTASSIUM CHLORIDE ER 20 MEQ TAB.ER PO STA (21:15)
--- NOTE | 2023-09-11 11:01 | P.PN ---
Subjective 57-year-old gentleman with past medical history significant for duodenal ulcer, history of gastrointestinal bleed, peripheral arterial disease history of s/p right femoral endarterectomy, right SFA and profunda embolectomy 2016, history of colon diverticulosis, history of COPD, alcohol use, history of depression presents to the emergency department with complaints of wound noted on his foot for approximately 8 months. Patient said he has been using topical antibiotic however recently patient has noted that the wound was getting worse. Patient states that for approximately 1 week he has not removed his socks and decided to come to the emergency since patient was unable to walk. Patient does endorse that he has history of arterial disease however denies history of diabetes. Workup initiated in ER included CBC which showed WBC of 10.7 hemoglobin 12.6 platelet count of 329 Chemistry obtained in ER showed sodium of 119, potassium 4.2, dioxide 21 BUN 10 creatinine 0.53 X-ray obtained in ER showed soft tissue wound lateral to the fifth metatarsal head.. Further evaluation ordered including CT foot Patient started on IV Zosyn and vancomycin admitted to medical floor 09/04/23: patient seen and evaluated at bedside, CT angiogram lower extremity reviewed bilateral moderate to severe occlusive disease noted. , vascular surgery consulted. Patient started on aspirin and Lipitor. Appreciate input from Infectious Disease continue patient on IV antibiotic continue with wound care. Patient going for wound debridement made n.p.o. patient made suicidal ideation, continue one-to-one sitter will consult psychiatry 09/05/2023 This is a pleasant 57 years old male who presents on 09/03 for left foot infection on the wound which was been going on for 8 months, recently getting worse. He is status post excision and debridement and 09/04. Today postop day #1. His left foot in a dressing and pain was controlled. 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 When asked the patient he told me he has depression but he denies suicidal ideation or homicidal ideation currently. No evidence of active delirium tremens or alcohol withdrawal symptoms His wound culture is growing sensitive for Proteus and the vancomycin was discontinued Discussed with staff 09/06/2023 Patient transferred to [address] [place] [id number] after the angiogram done yesterday by vascular surgery team showing significant peripheral vascular disease involvement the left lower extremity including the iliac arteries and tibia arteries as well. Patient remains on Unasyn and wound culture, Proteus, repeat wound culture growing gram-negative bacilli which is pending for now Patients sodium 128 and he has evidence of bilateral leg swelling. Is status post Lasix 20 mg 1 today 09/07/2023 Patient is awake and alert, no pain no distress, no new complaints No chest pain or dyspnea His left foot wound with a dressing in place. No significant pain Patient is planned to go for OR today for revascularization and direct hysterectomy and possible bypass procedure with vascular surgery team Patient low potassium and magnesium been replaced per protocol He is on Unasyn. Local withdrawal 09/08/2023 Patient awake and alert He is supposed to get surgery for his peripheral vascular disease of the left lower extremity including endarterectomy and bypass procedure however it was held and vascular surgery are considering doing it as an outpatient. In the meantime he remains being treated with IV Unasyn for his left foot wound and infection, PICC line was placed for IV antibiotics Unasyn upon discharge per recommendation of ID team Patient required ECF upon discharge, prior authorization is still pending He is on multiple pain regimen 09/09/2039 Patient still being treated for his left foot infection and wound. He has evidence of peripheral vascular disease, initially vascular surgery team are planning to do revascularization procedure for his left lower extremity however currently this is was postponed until outpatient basis. Patient informed and he agreed He continues to improve with IV antibiotic, currently he is on IV Unasyn and plan for him to be discharged on IV antibiotic. PICC line is in place Patient also wants to be DNR 09/11/2023 Patient discharged yesterday was held for placement I discussed the case with case supervisor today, his insurance has lapsed and now his with no insurance and social work job titles on the case for his discharge planning Clinically patient looks the same, no new complaint. Will check bladder scan that was less than 10. Patient does not need Stearns catheter Patient is aware with the discharge plan and is agreeable Will discharge patient to rehab once authorization is obtained Objective - Vital Signs Vital signs: Vital Signs Temp 98.8 F 09/11/23 07:51 Pulse 84 09/11/23 07:51 Resp 19 09/11/23 07:51 BP 124/72 09/11/23 07:51 Pulse Ox 92 L 09/11/23 07:51 FiO2 Intake & Output 09/10/23 09/11/23 09/11/23 18:59 06:59 18:59 Intake Total 680 Output Total 1000 Balance 680 -1000 Intake: Intake, IV Titration 200 Amount Ampicillin-Sulbactam 3 gm 100 In Sodium Chloride 0.9% 100 ml @ 200 mls/hr IVPB Q6HR [facility] Rx#:[id number] Sodium Chloride 0.9% 1, 100 000 ml @ 0 mls/hr IV .[facility] Rx#:[id number] Oral 480 Output: Urine 1000 Other: Voiding Method Indwelling Catheter - Exam GENERAL: The patient is alert and oriented x3, not in any acute distress. Well developed, well nourished. HEENT: Pupils are round and equally reacting to light. EOMI. No scleral icterus. No conjunctival pallor. Normocephalic, atraumatic. No pharyngeal erythema. No thyromegaly. CARDIOVASCULAR: S1 and S2 present. No murmurs, rubs, or gallops. PULMONARY: Chest is clear to auscultation, no wheezing , no crackles. ABDOMEN: Soft, nontender, nondistended, normoactive bowel sounds. No palpable organomegaly. MUSCULOSKELETAL: No joint swelling or deformity. -EXTREMITIES: No cyanosis, clubbing, or pedal edema. Left foot surgical wound with a recent a Place. Rest of exam is deferred to surgery team NEUROLOGICAL: Gross neurological examination did not reveal any focal deficits. SKIN: No rashes. no petechiae. - Labs CBC & Chem 7: 09/04/23 06:28 09/10/23 11:22 Labs: Abnormal Lab Results - Last 24 Hours (Table) 09/10/23 Range/Units 11:22 Sodium 131 L (137-145) mmol/L Potassium 3.3 L (3.5-5.1) mmol/L Assessment and Plan Assessment: Left foot gangrene and wound infection with cellulitis status post excision and debridement and 09/04. Angiogram showing significant disease of the left lower extremity Depression, with previous suicidal ideation. He is improved and patient was by psychiatrist who discontinued the sitter Alcohol lose disorder, patient consult and increased to quit. No withdrawal symptoms currently Hyponatremia, hypervolemic Bilateral pitting leg edema Plan: Continue with Unasyn. Follow-up final wound culture results Psychiatric evaluation is appreciated. Psychiatric team discontinued sitter and found patient does not meet criteria for inpatient psych unit, continue with medications recommended by psychiatrist Monitor sodium level and follow with associate spa director recommendation. Status post Lasix Vascular surgery team of the case and patient is status post angiogram showing significant disease of the left lower extremity. Labs and medication were reviewed.. Continue same treatment. Continue with symptomatic treatment. Resume home medication. Monitor labs and vitals. DVT and GI prophylaxis. Further recommendations as per clinical course of the patient DVT prophylaxis: Subcutaneous heparin GI Prophylaxis: Pepcid PT/OT: Subacute rehab, I talked to the patient and he is agreeable Prognosis is guarded
--- NOTE | 2023-09-11 12:50 | P.PN ---
Subjective Progress Note Date: 09/11/23 Principal diagnosis: Chronic wound, peripheral arterial disease Patient seen and examined today as a follow-up. No acute changes through the night. He is awaiting authorization for possible discharge to extended-care facility. Patient's mother is at the bedside and concerned that patient's insurance will not cover ECF, he has 3 flights of stairs to get into his home. Patient is complaining of left calf pain and pain with ambulating. Objective - Vital Signs Vital signs: Vital Signs Temp 98.8 F 09/11/23 07:51 Pulse 84 09/11/23 07:51 Resp 19 09/11/23 07:51 BP 124/72 09/11/23 07:51 Pulse Ox 92 L 09/11/23 07:51 FiO2 Intake & Output 09/10/23 09/11/23 09/11/23 18:59 06:59 18:59 Intake Total 680 Output Total 1000 Balance 680 -1000 Intake: Intake, IV Titration 200 Amount Ampicillin-Sulbactam 3 gm 100 In Sodium Chloride 0.9% 100 ml @ 200 mls/hr IVPB Q6HR [facility] Rx#:[id number] Sodium Chloride 0.9% 1, 100 000 ml @ 0 mls/hr IV .[facility] Rx#:[id number] Oral 480 Output: Urine 1000 Other: Voiding Method Indwelling Catheter - Exam General appearance: The patient is alert, oriented, appears in no acute distress. HET: Head is normocephalic and atraumatic. Pupils are equal and reactive. Neck: Supple. Extremities: Left lower extremity with dressing clean dry and intact. Tenderness to calf and rivera with squeezing. Neurological: No focal deficits. - Labs CBC & Chem 7: 09/04/23 06:28 09/10/23 11:22 Labs: Abnormal Lab Results - Last 24 Hours (Table) 09/10/23 Range/Units 11:22 Sodium 131 L (137-145) mmol/L Potassium 3.3 L (3.5-5.1) mmol/L Assessment and Plan Assessment: 1. 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 [place] 6 peripheral arterial disease 3. Chronic left foot/lower extremity wound status post debridement 4. Cellulitis 5. History of peripheral arterial disease with previous right lower extremity stenting and femoropopliteal bypass 6. Suicidal ideations on suicide watch Plan: 1. Continue daily dressing changes with recommendation from wound care 2. Continue with recommendations from infectious disease 3. At this time patient does not have insurance to cover ECF placement, discharge is on hold. 4. Patient is tentatively scheduled for 09/15/2023 for left femoral endarterectomy with femoral tibial bypass with GSV in situ graft 5. Rest of medical management per primary medical team Thank you for this consultation. We will continue to follow. The impression and plan of care has been dictated as directed. Dr. Payne I performed a history and examination of this patient, discussed the same with the dictator. I agree with the dictator's note ,documented as a scribe. Any additional findings or plans will be noted.
--- NOTE | 2023-09-11 13:08 | P.PN ---
Subjective Patient is seen for follow-up for hyponatremia. Improved with IV saline. No significant complaints today. Sodium staying at 131 Currently off of IV fluids. Tolerating oral intake. Objective - Vital Signs Vital signs: Vital Signs Temp 98.8 F 09/11/23 07:51 Pulse 84 09/11/23 07:51 Resp 19 09/11/23 07:51 BP 124/72 09/11/23 07:51 Pulse Ox 92 L 09/11/23 07:51 FiO2 Intake & Output 09/10/23 09/11/23 09/11/23 18:59 06:59 18:59 Intake Total 680 Output Total 1000 Balance 680 -1000 Weight 99.79 kg Intake: Intake, IV Titration 200 Amount Ampicillin-Sulbactam 3 gm 100 In Sodium Chloride 0.9% 100 ml @ 200 mls/hr IVPB Q6HR [facility] Rx#:[id number] Sodium Chloride 0.9% 1, 100 000 ml @ 0 mls/hr IV .[facility] Rx#:[id number] Oral 480 Output: Urine 1000 Other: Voiding Method Indwelling Catheter - Exam Patient is awake, comfortable, no acute distress Examination of the heart S1 and S2 Examination of the lungs bilateral breath sounds are heard Abdomen is soft nontender Examination of lower extremities shows no edema. Left foot is wrapped. 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 Hyponatremia from poor solute intake and excessive fluid intake. Also component of NSAID use. Urine sodium less than 20 and urine osmolality 312. TSH normal. Sodium currently staying at 131 2. Left foot wound on antibiotics. Culture positive for Proteus. Infectious disease and vascular surgery following. Status post debridement September 04, 2023. 3. Peripheral arterial disease with prior stenting. 4. Urinary retention status post Stearns catheter placement. On Flomax. 5. Hypokalemia from diuresis. Plan: Continue off of IV fluids and diuretics Continue with fluid restriction Encourage increase oral intake particularly protein Repeat labs in AM.
--- NOTE | 2023-09-11 14:46 | P.PN ---
Subjective Progress Note Date: 09/10/23 Principal diagnosis: Left foot wound and cellulitis Patient is a 57-year-old male with a past medical history significant for COPD PAD in this patient who did have a previous history of right femoropopliteal bypass at [facility] anxiety depression current ever yday smoker presented to the hospital worsening discoloration and wound to the left foot that has been there for couple of months. Patient is status post excisional debridement of the left foot completed by vascular surgery operative report mention no evidence of osteomyelitis. On today's evaluation that is 09/10/2023, Patient is afebrile patient is currently on room air and denies having any shortness of breath, the patient denies any chest pain or cough, the patient denies any nausea vomiting did not have any abdominal pain and no diarrhea, pain to the left foot has slightly decreased intensity Patient did not have any new labs today Objective - Vital Signs Vital signs: Vital Signs Temp 98.1 F 09/10/23 08:00 Pulse 92 09/10/23 08:00 Resp 20 09/10/23 08:00 BP 98/54 09/10/23 08:00 Pulse Ox 96 09/10/23 08:00 FiO2 Intake & Output 09/09/23 09/10/23 09/10/23 18:59 06:59 18:59 Intake Total 1050 Output Total 950 2150 Balance 100 -2150 Intake: Oral 1050 Output: Urine 950 2150 Straight 450 850 Uretheral (Stearns) 500 Other: Voiding Method Indwelling Catheter - Exam GENERAL DESCRIPTION: Middle-age male lying in bed in no distress RESPIRATORY SYSTEM: Unlabored breathing , decreased breath sounds at bases HEART: S1 S2 regular rate and rhythm , ABDOMEN: Soft , no tenderness EXTREMITIES: Left foot currently dressed minimal drainage on the dressing - Labs CBC & Chem 7: 09/04/23 06:28 09/10/23 11:22 Assessment and Plan (1) Cellulitis of left foot Current Visit: Yes Status: Acute Code(s): L03.116 - CELLULITIS OF LEFT LOWER LIMB SNOMED Code(s): 22880048427831061 (2) Infected wound Current Visit: Yes Status: Acute Code(s): T14.8XXA - OTHER INJURY OF UNSPECIFIED BODY REGION, INITIAL ENCOUNTER; L08.9 - LOCAL INFECTION OF THE SKIN AND SUBCUTANEOUS TISSUE, UNSP SNOMED Code(s): 73056758 Plan: 1-1patient is a 57-year-old male past medical history significant for PAD in this patient current smoker presented to hospital with extensive infection/wound to the left foot area likely component of ischemia with secondary cellulitis 2-patient is status post surgical debridement and deep culture, operative report did not mention any extension of the wound 3patient cultures grew Proteus sensitive to Unasyn but resistant/intermediate to Rocephin, anaerobe culture have been negative 4-patient did get a PICC line for outpatient IV Unasyn, the patient is currently waiting for insurance Auth for rehab placement 5-patient to continue with the Unasyn and continue with supportive care Dictation was produced using [employer] dictation software. please excuse any grammatical, word or spelling errors.
--- NOTE | 2023-09-11 14:47 | P.PN ---
Subjective Progress Note Date: 09/11/23 Principal diagnosis: Left foot wound and cellulitis Patient is a 57-year-old male with a past medical history significant for COPD PAD in this patient who did have a previous history of right femoropopliteal bypass at [facility] anxiety depression current ever yday smoker presented to the hospital worsening discoloration and wound to the left foot that has been there for couple of months. Patient is status post excisional debridement of the left foot completed by vascular surgery operative report mention no evidence of osteomyelitis. On today's evaluation that is 09/11/2023,the patient denies any fever or any chills, patient is breathing comfortably on room air, the patient denies chest pain shortness of breath and no significant cough, patient denies abdominal pain, no nausea vomiting or diarrhea, P denies any worsening pain to the left foot currently waiting for placement No new labs were obtained today Objective - Vital Signs Vital signs: Vital Signs Temp 98.1 F 09/11/23 14:00 Pulse 81 09/11/23 14:00 Resp 16 09/11/23 14:00 BP 108/68 09/11/23 14:00 Pulse Ox 96 09/11/23 14:00 FiO2 Intake & Output 09/10/23 09/11/23 09/11/23 18:59 06:59 18:59 Intake Total 680 100 Output Total 1000 Balance 680 -1000 100 Weight 99.79 kg Intake: Intake, IV Titration 200 100 Amount Ampicillin-Sulbactam 3 gm 100 100 In Sodium Chloride 0.9% 100 ml @ 200 mls/hr IVPB Q6HR [facility] Rx#:[id number] Sodium Chloride 0.9% 1, 100 000 ml @ 0 mls/hr IV .[facility] Rx#:[id number] Oral 480 Output: Urine 1000 Other: Voiding Method Indwelling Catheter - Exam GENERAL DESCRIPTION: Middle-age male lying in bed in no distress RESPIRATORY SYSTEM: Unlabored breathing , decreased breath sounds at bases HEART: S1 S2 regular rate and rhythm , ABDOMEN: Soft , no tenderness EXTREMITIES: Left foot currently dressed minimal drainage on the dressing - Labs CBC & Chem 7: 09/04/23 06:28 09/10/23 11:22 Assessment and Plan (1) Cellulitis of left foot Current Visit: Yes Status: Acute Code(s): L03.116 - CELLULITIS OF LEFT LOWER LIMB SNOMED Code(s): 28638416942404318 (2) Infected wound Current Visit: Yes Status: Acute Code(s): T14.8XXA - OTHER INJURY OF UNSPECIFIED BODY REGION, INITIAL ENCOUNTER; L08.9 - LOCAL INFECTION OF THE SKIN AND SUBCUTANEOUS TISSUE, UNSP SNOMED Code(s): 86890628 Plan: 1-1patient is a 57-year-old male past medical history significant for PAD in this patient current smoker presented to hospital with extensive infection/wound to the left foot area likely component of ischemia with secondary cellulitis 2-patient is status post surgical debridement and deep culture, operative report did not mention any extension of the wound 3patient cultures grew Proteus sensitive to Unasyn but resistant/intermediate to Rocephin, anaerobe culture have been negative 4-patient did get a PICC line for outpatient IV Unasyn, the patient is currently waiting for insurance Auth for rehab placement 5-patient has tolerated Unasyn and will continue on with local wound care per the surgical team mother at the bedside question Answered Dictation was produced using [employer] dictation software. please excuse any grammatical, word or spelling errors. Time with Patient: Less than 30
[2023-09-11] MEDS: ACETAMINOPHEN TAB 325 MG TAB PO PRN (16:52)
--- NOTE | 2023-09-12 11:03 | P.PN ---
Subjective Progress Note Date: 09/12/23 Principal diagnosis: Chronic wound, peripheral arterial disease Patient seen and examined today as a follow-up. He remains afebrile. Still has pain down the left lower extremity however is well-managed with pain medication. He is without any acute changes through the night. He remains on IV antibiotics. Objective - Vital Signs Vital signs: Vital Signs Temp 98.3 F 09/12/23 07:38 Pulse 83 09/12/23 07:38 Resp 19 09/12/23 07:38 BP 96/60 09/12/23 07:38 Pulse Ox 95 09/12/23 07:38 FiO2 Intake & Output 09/11/23 09/12/23 09/12/23 18:59 06:59 18:59 Intake Total 100 Output Total 800 Balance 100 -800 Weight 99.79 kg Intake: Intake, IV Titration 100 Amount Ampicillin-Sulbactam 3 gm 100 In Sodium Chloride 0.9% 100 ml @ 200 mls/hr IVPB Q6HR [facility] Rx#:[id number] Output: Urine 800 - Exam General appearance: The patient is alert, oriented, appears in no acute distress . HET: Head is normocephalic and atraumatic. Pupils are equal and reactive. Neck: Supple. Extremities: Left lower extremity with dressing changed. Eschar to heel and areas on dorsal apsect of foot and lateral aspect. Neurological: No focal deficits. - Labs CBC & Chem 7: 09/04/23 06:28 09/10/23 11:22 Assessment and Plan Assessment: 1. 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 [place] 6 peripheral arterial disease 3. Chronic left foot/lower extremity wound status post debridement 4. Cellulitis 5. History of peripheral arterial disease with previous right lower extremity stenting and femoropopliteal bypass 6. Suicidal ideations on suicide watch Plan: 1. Continue daily dressing changes with recommendation from wound care 2. Continue with recommendations from infectious disease 3. At this time patient does not have insurance to cover ECF placement, discharge is on hold. 4. Patient is tentatively scheduled for 09/15/2023 for left femoral endarterectomy with femoral tibial bypass with GSV in situ graft, possible debridement 5. Rest of medical management per primary medical team Thank you for this consultation. We will continue to follow. The impression and plan of care has been dictated as directed. Dr. Stearns I performed a history and examination of this patient, discussed the same with the dictator. I agree with the dictator's note ,documented as a scribe. Any additional findings or plans will be noted.
[2023-09-12 11:53] LABS: Basophils # (A) 0.1 k/uL (0-0.2); Basophils % (A) 1 %; Eosinophils # (A) 0.2 k/uL (0-0.7); Eosinophils % (A) 2 %; HCT 33.5 % (39.0-53.0); HGB 10.9 gm/dL (13.0-17.5); Lymphocytes # (A) 1.2 k/uL (1.0-4.8); Lymphocytes % (A) 10 %; MCH 28.8 pg (25.0-35.0); MCHC 32.6 g/dL (31.0-37.0); MCV 88.4 fL (80.0-100.0); Mean Platelet Volume 8.2; Monocytes # (A) 1.1 k/uL (0-1.0); Monocytes % (A) 9 %; Neutrophils % (A) 76 %; Platelet Count 419 k/uL (150-450); RBC 3.79 m/uL (4.30-5.90); WBC 11.9 k/uL (3.8-10.6)
[2023-09-12 12:02] LABS: ALT 101 U/L (4-49); AST 121 U/L (17-59); African American GFR (CKD) >90 (>60 ml/min/1.73 sqM); Albumin 2.5 g/dL (3.5-5.0); Albumin/Globulin Ratio 0.8; Alkaline Phosphatase 158 U/L (38-126); Anion Gap 5 mmol/L; Blood Urea Nitrogen 11 mg/dL (9-20); Calcium 7.8 mg/dL (8.4-10.2); Carbon Dioxide 26 mmol/L (22-30); Chloride 103 mmol/L (98-107); Globulin 3.2 g/dL; Glucose 93 mg/dL (74-99); Non-African American GFR(CKD) >90 (>60 ml/min/1.73 sqM); Potassium 3.4 mmol/L (3.5-5.1); Sodium 134 mmol/L (137-145); Total Bilirubin 0.5 mg/dL (0.2-1.3); Total Protein 5.7 g/dL (6.3-8.2)
--- NOTE | 2023-09-12 20:23 | P.PN ---
Subjective 57-year-old gentleman with past medical history significant for duodenal ulcer, history of gastrointestinal bleed, peripheral arterial disease history of s/p right femoral endarterectomy, right SFA and profunda embolectomy 2016, history of colon diverticulosis, history of COPD, alcohol use, history of depression presents to the emergency department with complaints of wound noted on his foot for approximately 8 months. Patient said he has been using topical antibiotic however recently patient has noted that the wound was getting worse. Patient states that for approximately 1 week he has not removed his socks and decided to come to the emergency since patient was unable to walk. Patient does endorse that he has history of arterial disease however denies history of diabetes. Workup initiated in ER included CBC which showed WBC of 10.7 hemoglobin 12.6 platelet count of 329 Chemistry obtained in ER showed sodium of 119, potassium 4.2, dioxide 21 BUN 10 creatinine 0.53 X-ray obtained in ER showed soft tissue wound lateral to the fifth metatarsal head.. Further evaluation ordered including CT foot Patient started on IV Zosyn and vancomycin admitted to medical floor 09/04/23: patient seen and evaluated at bedside, CT angiogram lower extremity reviewed bilateral moderate to severe occlusive disease noted. , vascular surgery consulted. Patient started on aspirin and Lipitor. Appreciate input from Infectious Disease continue patient on IV antibiotic continue with wound care. Patient going for wound debridement made n.p.o. patient made suicidal ideation, continue one-to-one sitter will consult psychiatry 09/05/2023 This is a pleasant 57 years old male who presents on 09/03 for left foot infection on the wound which was been going on for 8 months, recently getting worse. He is status post excision and debridement and 09/04. Today postop day #1. His left foot in a dressing and pain was controlled. 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 When asked the patient he told me he has depression but he denies suicidal ideation or homicidal ideation currently. No evidence of active delirium tremens or alcohol withdrawal symptoms His wound culture is growing sensitive for Proteus and the vancomycin was discontinued Discussed with staff 09/06/2023 Patient transferred to [address] [place] [address] after the angiogram done yesterday by vascular surgery team showing significant peripheral vascular disease involvement the left lower extremity including the iliac arteries and tibia arteries as well. Patient remains on Unasyn and wound culture, Proteus, repeat wound culture growing gram-negative bacilli which is pending for now Patients sodium 128 and he has evidence of bilateral leg swelling. Is status post Lasix 20 mg 1 today 09/07/2023 Patient is awake and alert, no pain no distress, no new complaints No chest pain or dyspnea His left foot wound with a dressing in place. No significant pain Patient is planned to go for OR today for revascularization and direct hysterectomy and possible bypass procedure with vascular surgery team Patient low potassium and magnesium been replaced per protocol He is on Unasyn. Local withdrawal 09/08/2023 Patient awake and alert He is supposed to get surgery for his peripheral vascular disease of the left lower extremity including endarterectomy and bypass procedure however it was held and vascular surgery are considering doing it as an outpatient. In the meantime he remains being treated with IV Unasyn for his left foot wound and infection, PICC line was placed for IV antibiotics Unasyn upon discharge per recommendation of ID team Patient required ECF upon discharge, prior authorization is still pending He is on multiple pain regimen 09/09/2039 Patient still being treated for his left foot infection and wound. He has evidence of peripheral vascular disease, initially vascular surgery team are planning to do revascularization procedure for his left lower extremity however currently this is was postponed until outpatient basis. Patient informed and he agreed He continues to improve with IV antibiotic, currently he is on IV Unasyn and plan for him to be discharged on IV antibiotic. PICC line is in place Patient also wants to be DNR 09/11/2023 Patient discharged yesterday was held for placement I discussed the case with case finisher today, his insurance has lapsed and now his with no insurance and social work faculty member on the case for his discharge planning Clinically patient looks the same, no new complaint. Will check bladder scan that was less than 10. Patient does not need Stearns catheter Patient is aware with the discharge plan and is agreeable Will discharge patient to rehab once authorization is obtained 09/12/2023 Patient clinically looks the same. He has slightly worsening labs Patient has no insurance to go to rehab, patient is scheduled for surgery this coming Thursday 09/14. Continue with antibiotic Objective - Vital Signs Vital signs: Vital Signs Temp 98.3 F 09/12/23 07:38 Pulse 83 09/12/23 07:38 Resp 19 09/12/23 07:38 BP 96/60 09/12/23 07:38 Pulse Ox 95 09/12/23 07:38 FiO2 Intake & Output 09/11/23 09/12/23 09/12/23 18:59 06:59 18:59 Intake Total 100 Output Total 800 Balance 100 -800 Weight 99.79 kg Intake: Intake, IV Titration 100 Amount Ampicillin-Sulbactam 3 gm 100 In Sodium Chloride 0.9% 100 ml @ 200 mls/hr IVPB Q6HR [facility] Rx#:[id number] Output: Urine 800 - Exam GENERAL: The patient is alert and oriented x3, not in any acute distress. Well developed, well nourished. HEENT: Pupils are round and equally reacting to light. EOMI. No scleral icterus. No conjunctival pallor. Normocephalic, atraumatic. No pharyngeal erythema. No thyromegaly. CARDIOVASCULAR: S1 and S2 present. No murmurs, rubs, or gallops. PULMONARY: Chest is clear to auscultation, no wheezing , no crackles. ABDOMEN: Soft, nontender, nondistended, normoactive bowel sounds. No palpable organomegaly. MUSCULOSKELETAL: No joint swelling or deformity. -EXTREMITIES: No cyanosis, clubbing, or pedal edema. Left foot surgical wound with a recent a Place. Rest of exam is deferred to surgery team NEUROLOGICAL: Gross neurological examination did not reveal any focal deficits. SKIN: No rashes. no petechiae. - Labs CBC & Chem 7: 09/12/23 11:17 09/12/23 11:17 Labs: Abnormal Lab Results - Last 24 Hours (Table) 09/12/23 09/12/23 Range/Units 11:17 11:17 WBC 11.9 H (3.8-10.6) k/uL RBC 3.79 L (4.30-5.90) m/uL Hgb 10.9 L (13.0-17.5) gm/dL Hct 33.5 L (39.0-53.0) % Neutrophils # 9.0 H (1.3-7.7) k/uL Monocytes # 1.1 H (0-1.0) k/uL Sodium 134 L (137-145) mmol/L Potassium 3.4 L (3.5-5.1) mmol/L Creatinine 0.64 L (0.66-1.25) mg/dL Calcium 7.8 L (8.4-10.2) mg/dL AST 121 H (17-59) U/L ALT 101 H (4-49) U/L Alkaline Phosphatase 158 H (38-126) U/L Total Protein 5.7 L (6.3-8.2) g/dL Albumin 2.5 L (3.5-5.0) g/dL Assessment and Plan Assessment: Left foot gangrene and wound infection with cellulitis status post excision and debridement and 09/04. Angiogram showing significant disease of the left lower extremity Depression, with previous suicidal ideation. He is improved and patient was by psychiatrist who discontinued the sitter Alcohol lose disorder, patient consult and increased to quit. No withdrawal symptoms currently Hyponatremia, hypervolemic Bilateral pitting leg edema Plan: Patient scheduled for surgery of the left lower extremity on 09/14 including endarterectomy Continue with Unasyn. Follow-up final wound culture results Psychiatric evaluation is appreciated. Psychiatric team discontinued sitter and found patient does not meet criteria for inpatient psych unit, continue with medications recommended by psychiatrist Monitor sodium level and follow with harness placer recommendation. Status post Lasix Vascular surgery team of the case and patient is status post angiogram showing significant disease of the left lower extremity. Labs and medication were reviewed.. Continue same treatment. Continue with symptomatic treatment. Resume home medication. Monitor labs and vitals. DVT and GI prophylaxis. Further recommendations as per clinical course of the patient DVT prophylaxis: Subcutaneous heparin GI Prophylaxis: Pepcid PT/OT: Subacute rehab, I talked to the patient and he is agreeable Prognosis is guarded
--- NOTE | 2023-09-13 10:15 | P.PN ---
Subjective 57-year-old gentleman with past medical history significant for duodenal ulcer, history of gastrointestinal bleed, peripheral arterial disease history of s/p right femoral endarterectomy, right SFA and profunda embolectomy 2016, history of colon diverticulosis, history of COPD, alcohol use, history of depression presents to the emergency department with complaints of wound noted on his foot for approximately 8 months. Patient said he has been using topical antibiotic however recently patient has noted that the wound was getting worse. Patient states that for approximately 1 week he has not removed his socks and decided to come to the emergency since patient was unable to walk. Patient does endorse that he has history of arterial disease however denies history of diabetes. Workup initiated in ER included CBC which showed WBC of 10.7 hemoglobin 12.6 platelet count of 329 Chemistry obtained in ER showed sodium of 119, potassium 4.2, dioxide 21 BUN 10 creatinine 0.53 X-ray obtained in ER showed soft tissue wound lateral to the fifth metatarsal head.. Further evaluation ordered including CT foot Patient started on IV Zosyn and vancomycin admitted to medical floor 09/04/23: patient seen and evaluated at bedside, CT angiogram lower extremity reviewed bilateral moderate to severe occlusive disease noted. , vascular surgery consulted. Patient started on aspirin and Lipitor. Appreciate input from Infectious Disease continue patient on IV antibiotic continue with wound care. Patient going for wound debridement made n.p.o. patient made suicidal ideation, continue one-to-one sitter will consult psychiatry 09/05/2023 This is a pleasant 57 years old male who presents on 09/03 for left foot infection on the wound which was been going on for 8 months, recently getting worse. He is status post excision and debridement and 09/04. Today postop day #1. His left foot in a dressing and pain was controlled. 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 When asked the patient he told me he has depression but he denies suicidal ideation or homicidal ideation currently. No evidence of active delirium tremens or alcohol withdrawal symptoms His wound culture is growing sensitive for Proteus and the vancomycin was discontinued Discussed with staff 09/06/2023 Patient transferred to [address] [place] [address] after the angiogram done yesterday by vascular surgery team showing significant peripheral vascular disease involvement the left lower extremity including the iliac arteries and tibia arteries as well. Patient remains on Unasyn and wound culture, Proteus, repeat wound culture growing gram-negative bacilli which is pending for now Patients sodium 128 and he has evidence of bilateral leg swelling. Is status post Lasix 20 mg 1 today 09/07/2023 Patient is awake and alert, no pain no distress, no new complaints No chest pain or dyspnea His left foot wound with a dressing in place. No significant pain Patient is planned to go for OR today for revascularization and direct hysterectomy and possible bypass procedure with vascular surgery team Patient low potassium and magnesium been replaced per protocol He is on Unasyn. Local withdrawal 09/08/2023 Patient awake and alert He is supposed to get surgery for his peripheral vascular disease of the left lower extremity including endarterectomy and bypass procedure however it was held and vascular surgery are considering doing it as an outpatient. In the meantime he remains being treated with IV Unasyn for his left foot wound and infection, PICC line was placed for IV antibiotics Unasyn upon discharge per recommendation of ID team Patient required ECF upon discharge, prior authorization is still pending He is on multiple pain regimen 09/09/2039 Patient still being treated for his left foot infection and wound. He has evidence of peripheral vascular disease, initially vascular surgery team are planning to do revascularization procedure for his left lower extremity however currently this is was postponed until outpatient basis. Patient informed and he agreed He continues to improve with IV antibiotic, currently he is on IV Unasyn and plan for him to be discharged on IV antibiotic. PICC line is in place Patient also wants to be DNR 09/11/2023 Patient discharged yesterday was held for placement I discussed the case with rn case manager today, his insurance has lapsed and now his with no insurance and healthcare social worker on the case for his discharge planning Clinically patient looks the same, no new complaint. Will check bladder scan that was less than 10. Patient does not need Stearns catheter Patient is aware with the discharge plan and is agreeable Will discharge patient to rehab once authorization is obtained 09/12/2023 Patient clinically looks the same. He has slightly worsening labs Patient has no insurance to go to rehab, patient is scheduled for surgery this coming Thursday 09/14. Continue with antibiotic patient awake alert, no new complaint No chest pain or dyspnea Patient planned to undergo vascular surgery of his left leg/ankle on this coming Sunday Objective - Vital Signs Vital signs: Vital Signs Temp 98.3 F 09/13/23 07:14 Pulse 83 09/13/23 07:14 Resp 18 09/13/23 07:14 BP 141/83 09/13/23 07:14 Pulse Ox 98 09/13/23 07:14 FiO2 Intake & Output 09/12/23 09/13/23 09/13/23 18:59 06:59 18:59 Intake Total 100 Output Total 1450 Balance 100 -1450 Intake: Intake, IV Titration 100 Amount Ampicillin-Sulbactam 3 gm 100 In Sodium Chloride 0.9% 100 ml @ 200 mls/hr IVPB Q6HR [facility] Rx#:[id number] Output: Urine 1450 Other: # Voids 1 # Bowel Movements 1 - Exam GENERAL: The patient is alert and oriented x3, not in any acute distress. Well developed, well nourished. HEENT: Pupils are round and equally reacting to light. EOMI. No scleral icterus. No conjunctival pallor. Normocephalic, atraumatic. No pharyngeal erythema. No thyromegaly. CARDIOVASCULAR: S1 and S2 present. No murmurs, rubs, or gallops. PULMONARY: Chest is clear to auscultation, no wheezing , no crackles. ABDOMEN: Soft, nontender, nondistended, normoactive bowel sounds. No palpable organomegaly. MUSCULOSKELETAL: No joint swelling or deformity. -EXTREMITIES: No cyanosis, clubbing, or pedal edema. Left foot surgical wound with a recent a Place. Rest of exam is deferred to surgery team NEUROLOGICAL: Gross neurological examination did not reveal any focal deficits. SKIN: No rashes. no petechiae. - Labs CBC & Chem 7: 09/12/23 11:17 09/12/23 11:17 Labs: Abnormal Lab Results - Last 24 Hours (Table) 09/12/23 09/12/23 Range/Units 11:17 11:17 WBC 11.9 H (3.8-10.6) k/uL RBC 3.79 L (4.30-5.90) m/uL Hgb 10.9 L (13.0-17.5) gm/dL Hct 33.5 L (39.0-53.0) % Neutrophils # 9.0 H (1.3-7.7) k/uL Monocytes # 1.1 H (0-1.0) k/uL Sodium 134 L (137-145) mmol/L Potassium 3.4 L (3.5-5.1) mmol/L Creatinine 0.64 L (0.66-1.25) mg/dL Calcium 7.8 L (8.4-10.2) mg/dL AST 121 H (17-59) U/L ALT 101 H (4-49) U/L Alkaline Phosphatase 158 H (38-126) U/L Total Protein 5.7 L (6.3-8.2) g/dL Albumin 2.5 L (3.5-5.0) g/dL Assessment and Plan Assessment: Left foot gangrene and wound infection with cellulitis status post excision and debridement and 09/04. Angiogram showing significant disease of the left lower extremity Depression, with previous suicidal ideation. He is improved and patient was by psychiatrist who discontinued the sitter Alcohol lose disorder, patient consult and increased to quit. No withdrawal symptoms currently Hyponatremia, hypervolemic Bilateral pitting leg edema Plan: Patient scheduled for surgery of the left lower extremity on 09/14 including endarterectomy Continue with Unasyn. Follow-up final wound culture results Psychiatric evaluation is appreciated. Psychiatric team discontinued sitter and found patient does not meet criteria for inpatient psych unit, continue with medications recommended by psychiatrist Monitor sodium level and follow with punch operator recommendation. Status post Lasix Vascular surgery team of the case and patient is status post angiogram showing significant disease of the left lower extremity. Labs and medication were reviewed.. Continue same treatment. Continue with symptomatic treatment. Resume home medication. Monitor labs and vitals. DVT and GI prophylaxis. Further recommendations as per clinical course of the patient DVT prophylaxis: Subcutaneous heparin GI Prophylaxis: Pepcid PT/OT: Subacute rehab, I talked to the patient and he is agreeable Prognosis is guarded
[2023-09-13] MEDS: POTASSIUM CHLORIDE ER 20 MEQ TAB.ER PO STA (11:01)
--- NOTE | 2023-09-13 13:08 | P.PN ---
Subjective Patient is seen for follow-up for hyponatremia. Improved with IV saline. No significant complaints today. Sodium at 134 Currently off of IV fluids. Tolerating oral intake. Objective - Vital Signs Vital signs: Vital Signs Temp 98.3 F 09/13/23 07:14 Pulse 83 09/13/23 07:14 Resp 18 09/13/23 07:14 BP 141/83 09/13/23 07:14 Pulse Ox 98 09/13/23 07:14 FiO2 Intake & Output 09/12/23 09/13/23 09/13/23 18:59 06:59 18:59 Intake Total 100 Output Total 1450 Balance 100 -1450 Intake: Intake, IV Titration 100 Amount Ampicillin-Sulbactam 3 gm 100 In Sodium Chloride 0.9% 100 ml @ 200 mls/hr IVPB Q6HR [facility] Rx#:[id number] Output: Urine 1450 Other: # Voids 1 # Bowel Movements 1 - Exam Patient is awake, comfortable, no acute distress Examination of the heart S1 and S2 Examination of the lungs bilateral breath sounds are heard Abdomen is soft nontender Examination of lower extremities shows 1+ edema. Left foot is wrapped. LOAN REPRESENTATIVE exam grossly intact - Labs CBC & Chem 7: 09/12/23 11:17 09/12/23 11:17 Assessment and Plan Assessment: 1. Hyponatremia from poor solute intake and excessive fluid intake. Also component of NSAID use. Urine sodium less than 20 and urine osmolality 312. TSH normal. Sodium currently staying at 134. Patient is currently hypervolemic. 2. Left foot wound on antibiotics. Culture positive for Proteus. Infectious disease and vascular surgery following. Status post debridement September 04, 2023. 3. Peripheral arterial disease with prior stenting. 4. Urinary retention status post Stearns catheter placement. On Flomax. 5. Hypokalemia from diuresis. Plan: Add loop diuretics Continue with fluid restriction Encourage increase oral intake particularly protein Repeat labs in AM.
--- NOTE | 2023-09-13 14:21 | P.PN ---
Subjective Progress Note Date: 09/12/23 Principal diagnosis: Left foot wound and cellulitis Patient is a 57-year-old male with a past medical history significant for COPD PAD in this patient who did have a previous history of right femoropopliteal bypass at [facility] anxiety depression current ever yday smoker presented to the hospital worsening discoloration and wound to the left foot that has been there for couple of months. Patient is status post excisional debridement of the left foot completed by vascular surgery operative report mention no evidence of osteomyelitis. On today's evaluation that is 09/12/2023,the patient remains to be afebrile, patient is on room air not requiring supplemental oxygen and denies any shortness of breath no chest pain or cough.Patient denies having any nausea or vomiting, no abdominal pain and no diarrhea has been reported, denies any worsening pain to the left foot wound area. Patient did have white count of 11.9, creatinine 0.64 Objective - Vital Signs Vital signs: Vital Signs Temp 98.3 F 09/12/23 07:38 Pulse 83 09/12/23 07:38 Resp 19 09/12/23 07:38 BP 96/60 09/12/23 07:38 Pulse Ox 95 09/12/23 07:38 FiO2 Intake & Output 09/11/23 09/12/23 09/12/23 18:59 06:59 18:59 Intake Total 100 Output Total 800 Balance 100 -800 Weight 99.79 kg Intake: Intake, IV Titration 100 Amount Ampicillin-Sulbactam 3 gm 100 In Sodium Chloride 0.9% 100 ml @ 200 mls/hr IVPB Q6HR [facility] Rx#:[id number] Output: Urine 800 - Exam GENERAL DESCRIPTION: Middle-age male lying in bed in no distress RESPIRATORY SYSTEM: Unlabored breathing , decreased breath sounds at bases HEART: S1 S2 regular rate and rhythm , ABDOMEN: Soft , no tenderness EXTREMITIES: Left foot currently dressed minimal drainage on the dressing - Labs CBC & Chem 7: 09/12/23 11:17 09/12/23 11:17 Labs: Abnormal Lab Results - Last 24 Hours (Table) 09/12/23 09/12/23 Range/Units 11:17 11:17 WBC 11.9 H (3.8-10.6) k/uL RBC 3.79 L (4.30-5.90) m/uL Hgb 10.9 L (13.0-17.5) gm/dL Hct 33.5 L (39.0-53.0) % Neutrophils # 9.0 H (1.3-7.7) k/uL Monocytes # 1.1 H (0-1.0) k/uL Sodium 134 L (137-145) mmol/L Potassium 3.4 L (3.5-5.1) mmol/L Creatinine 0.64 L (0.66-1.25) mg/dL Calcium 7.8 L (8.4-10.2) mg/dL AST 121 H (17-59) U/L ALT 101 H (4-49) U/L Alkaline Phosphatase 158 H (38-126) U/L Total Protein 5.7 L (6.3-8.2) g/dL Albumin 2.5 L (3.5-5.0) g/dL Assessment and Plan (1) Cellulitis of left foot Current Visit: Yes Status: Acute Code(s): L03.116 - CELLULITIS OF LEFT LOWER LIMB SNOMED Code(s): 60234220845306920 (2) Infected wound Current Visit: Yes Status: Acute Code(s): T14.8XXA - OTHER INJURY OF UNSPECIFIED BODY REGION, INITIAL ENCOUNTER; L08.9 - LOCAL INFECTION OF THE SKIN AND SUBCUTANEOUS TISSUE, UNSP SNOMED Code(s): 21787334 Plan: 1-1patient is a 57-year-old male past medical history significant for PAD in this patient current smoker presented to hospital with extensive infection/wound to the left foot area likely component of ischemia with secondary cellulitis 2-patient is status post surgical debridement and deep culture, operative report did not mention any extension of the wound 3patient cultures grew Proteus sensitive to Unasyn but resistant/intermediate to Rocephin, anaerobe culture have been negative 4-patient did get a PICC line for outpatient IV Unasyn, the patient is currently waiting for insurance Auth for rehab placement 5-patient to continue on with local wound care per the surgical team and continue with Unasyn Dictation was produced using [employer] dictation software. please excuse any grammatical, word or spelling errors. Time with Patient: Less than 30
--- NOTE | 2023-09-13 14:23 | P.PN ---
Subjective Progress Note Date: 09/13/23 Principal diagnosis: Left foot wound and cellulitis Patient is a 57-year-old male with a past medical history significant for COPD PAD in this patient who did have a previous history of right femoropopliteal bypass at [facility] anxiety depression current ever yday smoker presented to the hospital worsening discoloration and wound to the left foot that has been there for couple of months. Patient is status post excisional debridement of the left foot completed by vascular surgery operative report mention no evidence of osteomyelitis. On today's evaluation that is 09/13/2023, the patient continues to be afebrile, the patient is on room air and breathing comfortably, the Pt denies having any chest pain or cough, the patient denies having any abdominal pain no vomiting or any diarrhea has been reported by the nursing staff, pain to the left foot is currently controlled. No new labs obtained today Objective - Vital Signs Vital signs: Vital Signs Temp 98.7 F 09/13/23 13:12 Pulse 81 09/13/23 13:12 Resp 19 09/13/23 13:12 BP 149/76 09/13/23 13:12 Pulse Ox 100 09/13/23 13:12 FiO2 Intake & Output 09/12/23 09/13/23 09/13/23 18:59 06:59 18:59 Intake Total 100 Output Total 1450 Balance 100 -1450 Intake: Intake, IV Titration 100 Amount Ampicillin-Sulbactam 3 gm 100 In Sodium Chloride 0.9% 100 ml @ 200 mls/hr IVPB Q6HR [facility] Rx#:[id number] Output: Urine 1450 Other: # Voids 1 3 # Bowel Movements 1 1 - Exam GENERAL DESCRIPTION: Middle-age male lying in bed in no distress RESPIRATORY SYSTEM: Unlabored breathing , decreased breath sounds at bases HEART: S1 S2 regular rate and rhythm , ABDOMEN: Soft , no tenderness EXTREMITIES: Left foot currently dressed minimal drainage on the dressing - Labs CBC & Chem 7: 09/12/23 11:17 09/12/23 11:17 Assessment and Plan (1) Cellulitis of left foot Current Visit: Yes Status: Acute Code(s): L03.116 - CELLULITIS OF LEFT LOWER LIMB SNOMED Code(s): 74510987513798255 (2) Infected wound Current Visit: Yes Status: Acute Code(s): T14.8XXA - OTHER INJURY OF UNSPECIFIED BODY REGION, INITIAL ENCOUNTER; L08.9 - LOCAL INFECTION OF THE SKIN AND SUBCUTANEOUS TISSUE, UNSP SNOMED Code(s): 25354142 Plan: 1-1patient presented to hospital with extensive infection/wound to the left foot area likely component of ischemia with secondary cellulitis, patient is status post surgical debridement and deep culture, operative report did not mention any extension of the wound 2-patient cultures grew Proteus sensitive to Unasyn but resistant/intermediate to Rocephin, anaerobe culture have been negative 3-patient did get a PICC line for outpatient IV Unasyn, 4-patient to continue on with local wound care per the surgical team and continue with Unasyn, currently waiting for the rehab placement insurance authorization Dictation was produced using [employer] dictation software. please excuse any grammatical, word or spelling errors. Time with Patient: Less than 30
[2023-09-13] MEDS: FUROSEMIDE 10 MG/ML 4 ML VIAL IV SCH (14:41)
[2023-09-13] MEDS: POTASSIUM CHLORIDE ER 20 MEQ TAB.ER PO SCH (23:00)
[2023-09-14] MEDS: traZODone HCL 50 MG TAB PO PRN (00:56)
[2023-09-14 09:03] LABS: HCT 33.2 % (39.0-53.0); HGB 10.6 gm/dL (13.0-17.5); MCH 27.9 pg (25.0-35.0); MCV 87.3 fL (80.0-100.0); Platelet Count 516 k/uL (150-450); RDW 13.1 % (11.5-15.5); WBC 11.1 k/uL (3.8-10.6)
[2023-09-14 09:14] LABS: African American GFR (CKD) >90 (>60 ml/min/1.73 sqM); Anion Gap 10 mmol/L; Blood Urea Nitrogen 10 mg/dL (9-20); Calcium 8.3 mg/dL (8.4-10.2); Carbon Dioxide 24 mmol/L (22-30); Chloride 102 mmol/L (98-107); Glucose 109 mg/dL (74-99); Non-African American GFR(CKD) >90 (>60 ml/min/1.73 sqM); Potassium 3.5 mmol/L (3.5-5.1); Sodium 136 mmol/L (137-145)
--- NOTE | 2023-09-14 12:17 | P.PN ---
Subjective Progress Note Date: 09/14/23 Principal diagnosis: Chronic wound, peripheral arterial disease Patient seen and examined today as a follow-up. No acute changes through the night. Patient was moved to 3 S. cardiac stepdown unit for anticipation of femoropopliteal bypass tomorrow. Objective - Vital Signs Vital signs: Vital Signs Temp 98.2 F 09/14/23 09:02 Pulse 74 09/14/23 11:54 Resp 16 09/14/23 11:54 BP 104/69 09/14/23 11:54 Pulse Ox 96 09/14/23 11:54 FiO2 Intake & Output 09/13/23 09/14/23 09/14/23 18:59 06:59 18:59 Intake Total 480 580 10 Output Total 300 1200 Balance 180 -620 10 Weight 91.4 kg Intake: IV 10 Invasive Line 7 10 Intake, IV Titration 100 Amount Ampicillin-Sulbactam 3 gm 100 In Sodium Chloride 0.9% 100 ml @ 200 mls/hr IVPB Q6HR [facility] Rx#:[id number] Oral 480 480 Output: Urine 300 1200 Other: Voiding Method Toilet Toilet Urinal Urinal # Voids 3 1 0 # Bowel Movements 1 - Exam General appearance: The patient is alert, oriented, appears in no acute distress. HET: Head is normocephalic and atraumatic. Pupils are equal and reactive. Neck: Supple. Extremities: Left lower extremity with dressing clean dry and intact. Neurological: No focal deficits. - Labs CBC & Chem 7: 09/14/23 08:32 09/14/23 08:32 Labs: Abnormal Lab Results - Last 24 Hours (Table) 09/14/23 09/14/23 Range/Units 08:32 08:32 WBC 11.1 H (3.8-10.6) k/uL RBC 3.80 L (4.30-5.90) m/uL Hgb 10.6 L (13.0-17.5) gm/dL Hct 33.2 L (39.0-53.0) % Plt Count 516 H (150-450) k/uL Sodium 136 L (137-145) mmol/L Creatinine 0.65 L (0.66-1.25) mg/dL Glucose 109 H (74-99) mg/dL Calcium 8.3 L (8.4-10.2) mg/dL Assessment and Plan Assessment: 1. 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 Annamaria 6 peripheral arterial disease 3. Chronic left foot/lower extremity wound status post debridement 4. Cellulitis 5. History of peripheral arterial disease with previous right lower extremity stenting and femoropopliteal bypass 6. Suicidal ideations on suicide watch Plan: 1. Continue daily dressing changes with recommendation from wound care 2. Continue with recommendations from infectious disease 3. N.p.o. after midnight 4. Patient is scheduled tomorrow for left femoral endarterectomy with femoral tibial bypass with GSV in situ graft, possible debridement 5. Type and screen, CBC, BMP ordered 6. Hold Lovenox 09/15/2023 7. Rest of medical management per primary medical team Thank you for this consultation. We will continue to follow. The impression and plan of care has been dictated as directed. Dr. Stearns I performed a history and examination of this patient, discussed the same with the dictator. I agree with the dictator's note ,documented as a scribe. Any additional findings or plans will be noted.
--- NOTE | 2023-09-14 15:29 | P.PN ---
Subjective Patient is seen for follow-up for hyponatremia. Currently hypervolemic and started on IV Lasix. No significant complaints today. Sodium at 136 Tolerating oral intake. Objective - Vital Signs Vital signs: Vital Signs Temp 98.2 F 09/14/23 09:02 Pulse 74 09/14/23 11:54 Resp 16 09/14/23 11:54 BP 104/69 09/14/23 11:54 Pulse Ox 96 09/14/23 11:54 FiO2 Intake & Output 09/13/23 09/14/23 09/14/23 18:59 06:59 18:59 Intake Total 480 580 20 Output Total 300 1200 Balance 180 -620 20 Weight 91.4 kg Intake: IV 20 Invasive Line 7 20 Intake, IV Titration 100 Amount Ampicillin-Sulbactam 3 gm 100 In Sodium Chloride 0.9% 100 ml @ 200 mls/hr IVPB Q6HR [facility] Rx#:[id number] Oral 480 480 Output: Urine 300 1200 Other: Voiding Method Toilet Toilet Urinal Urinal # Voids 3 1 0 # Bowel Movements 1 - Exam Patient is awake, comfortable, no acute distress Examination of the heart S1 and S2 Examination of the lungs bilateral breath sounds are heard Abdomen is soft nontender Examination of lower extremities shows 1+ edema. Left foot is wrapped. KNOT BUMPER exam grossly intact - Labs CBC & Chem 7: 09/14/23 08:32 09/14/23 08:32 Labs: Abnormal Lab Results - Last 24 Hours (Table) 09/14/23 09/14/23 Range/Units 08:32 08:32 WBC 11.1 H (3.8-10.6) k/uL RBC 3.80 L (4.30-5.90) m/uL Hgb 10.6 L (13.0-17.5) gm/dL Hct 33.2 L (39.0-53.0) % Plt Count 516 H (150-450) k/uL Sodium 136 L (137-145) mmol/L Creatinine 0.65 L (0.66-1.25) mg/dL Glucose 109 H (74-99) mg/dL Calcium 8.3 L (8.4-10.2) mg/dL Assessment and Plan Assessment: 1. Hyponatremia from poor solute intake and excessive fluid intake. Also component of NSAID use. Urine sodium less than 20 and urine osmolality 312. TSH normal. Sodium currently staying at 134. Patient is currently hypervolemic. Started on IV Lasix on 09/13/2023 2. Left foot wound on antibiotics. Culture positive for Proteus. Infectious disease and vascular surgery following. Status post debridement September 04, 2023. Plans for femoropopliteal bypass in a.m. 3. Peripheral arterial disease with prior stenting. 4. Urinary retention status post Stearns catheter placement. On Flomax. 5. Hypokalemia from diuresis. Plan: Continue with IV Lasix Continue with fluid restriction Encourage increase oral intake particularly protein Repeat labs in AM.
--- NOTE | 2023-09-14 16:33 | P.PN ---
Subjective Progress Note Date: 09/14/23 Principal diagnosis: Left foot wound and cellulitis Patient is a 57-year-old male with a past medical history significant for COPD PAD in this patient who did have a previous history of right femoropopliteal bypass at [facility] anxiety depression current ever yday smoker presented to the hospital worsening discoloration and wound to the left foot that has been there for couple of months. Patient is status post excisional debridement of the left foot completed by vascular surgery operative report mention no evidence of osteomyelitis. On today's evaluation that is 09/14/2023, Patient is afebrile patient is currently on room air and denies having any shortness of breath, the patient denies any chest pain or cough, the patient denies any nausea vomiting did not have any abdominal pain and no diarrhea, pain to the left foot is currently controlled with the current medication. Patient white count is 11.1, creatinine 0.65 Objective - Vital Signs Vital signs: Vital Signs Temp 98.2 F 09/14/23 09:02 Pulse 74 09/14/23 11:54 Resp 16 09/14/23 11:54 BP 104/69 09/14/23 11:54 Pulse Ox 96 09/14/23 11:54 FiO2 Intake & Output 09/13/23 09/14/23 09/14/23 18:59 06:59 18:59 Intake Total 480 580 510 Output Total 300 1200 Balance 180 -620 510 Weight 91.4 kg Intake: IV 30 Invasive Line 7 30 Intake, IV Titration 100 Amount Ampicillin-Sulbactam 3 gm 100 In Sodium Chloride 0.9% 100 ml @ 200 mls/hr IVPB Q6HR [facility] Rx#:[id number] Oral 480 480 480 Output: Urine 300 1200 Other: Voiding Method Toilet Toilet Urinal Urinal # Voids 3 1 0 # Bowel Movements 1 - Exam GENERAL DESCRIPTION: Middle-age male lying in bed in no distress RESPIRATORY SYSTEM: Unlabored breathing , decreased breath sounds at bases HEART: S1 S2 regular rate and rhythm , ABDOMEN: Soft , no tenderness EXTREMITIES: Left foot currently dressed minimal drainage on the dressing - Labs CBC & Chem 7: 09/14/23 08:32 09/14/23 08:32 Labs: Abnormal Lab Results - Last 24 Hours (Table) 09/14/23 09/14/23 Range/Units 08:32 08:32 WBC 11.1 H (3.8-10.6) k/uL RBC 3.80 L (4.30-5.90) m/uL Hgb 10.6 L (13.0-17.5) gm/dL Hct 33.2 L (39.0-53.0) % Plt Count 516 H (150-450) k/uL Sodium 136 L (137-145) mmol/L Creatinine 0.65 L (0.66-1.25) mg/dL Glucose 109 H (74-99) mg/dL Calcium 8.3 L (8.4-10.2) mg/dL Assessment and Plan (1) Cellulitis of left foot Current Visit: Yes Status: Acute Code(s): L03.116 - CELLULITIS OF LEFT LOWER LIMB SNOMED Code(s): 10462541755871279 (2) Infected wound Current Visit: Yes Status: Acute Code(s): T14.8XXA - OTHER INJURY OF UNSPECIFIED BODY REGION, INITIAL ENCOUNTER; L08.9 - LOCAL INFECTION OF THE SKIN AND SUBCUTANEOUS TISSUE, UNSP SNOMED Code(s): 07833994 Plan: 1-1patient presented to hospital with extensive infection/wound to the left foot area likely component of ischemia with secondary cellulitis, patient is status post surgical debridement and deep culture, operative report did not mention any extension of the wound 2-patient cultures grew Proteus sensitive to Unasyn but resistant/intermediate to Rocephin, anaerobe culture have been negative 3-patient did get a PICC line for outpatient IV Unasyn, 4-patient to continue on with local wound care per the surgical team apparently scheduled for surgical intervention tomorrow morning for revascularization to the left leg 5patient to continue with Unasyn mother at the bedside questions were answered Dictation was produced using [employer] dictation software. please excuse any grammatical, word or spelling errors. Time with Patient: Less than 30
--- NOTE | 2023-09-14 21:44 | P.PN ---
Subjective 57-year-old gentleman with past medical history significant for duodenal ulcer, history of gastrointestinal bleed, peripheral arterial disease history of s/p right femoral endarterectomy, right SFA and profunda embolectomy 2016, history of colon diverticulosis, history of COPD, alcohol use, history of depression presents to the emergency department with complaints of wound noted on his foot for approximately 8 months. Patient said he has been using topical antibiotic however recently patient has noted that the wound was getting worse. Patient states that for approximately 1 week he has not removed his socks and decided to come to the emergency since patient was unable to walk. Patient does endorse that he has history of arterial disease however denies history of diabetes. Workup initiated in ER included CBC which showed WBC of 10.7 hemoglobin 12.6 platelet count of 329 Chemistry obtained in ER showed sodium of 119, potassium 4.2, dioxide 21 BUN 10 creatinine 0.53 X-ray obtained in ER showed soft tissue wound lateral to the fifth metatarsal head.. Further evaluation ordered including CT foot Patient started on IV Zosyn and vancomycin admitted to medical floor 09/04/23: patient seen and evaluated at bedside, CT angiogram lower extremity reviewed bilateral moderate to severe occlusive disease noted. , vascular surgery consulted. Patient started on aspirin and Lipitor. Appreciate input from Infectious Disease continue patient on IV antibiotic continue with wound care. Patient going for wound debridement made n.p.o. patient made suicidal ideation, continue one-to-one sitter will consult psychiatry 09/05/2023 This is a pleasant 57 years old male who presents on 09/03 for left foot infection on the wound which was been going on for 8 months, recently getting worse. He is status post excision and debridement and 09/04. Today postop day #1. His left foot in a dressing and pain was controlled. 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 When asked the patient he told me he has depression but he denies suicidal ideation or homicidal ideation currently. No evidence of active delirium tremens or alcohol withdrawal symptoms His wound culture is growing sensitive for Proteus and the vancomycin was discontinued Discussed with staff 09/06/2023 Patient transferred to [address] [place] [address] after the angiogram done yesterday by vascular surgery team showing significant peripheral vascular disease involvement the left lower extremity including the iliac arteries and tibia arteries as well. Patient remains on Unasyn and wound culture, Proteus, repeat wound culture growing gram-negative bacilli which is pending for now Patients sodium 128 and he has evidence of bilateral leg swelling. Is status post Lasix 20 mg 1 today 09/07/2023 Patient is awake and alert, no pain no distress, no new complaints No chest pain or dyspnea His left foot wound with a dressing in place. No significant pain Patient is planned to go for OR today for revascularization and direct hysterectomy and possible bypass procedure with vascular surgery team Patient low potassium and magnesium been replaced per protocol He is on Unasyn. Local withdrawal 09/08/2023 Patient awake and alert He is supposed to get surgery for his peripheral vascular disease of the left lower extremity including endarterectomy and bypass procedure however it was held and vascular surgery are considering doing it as an outpatient. In the meantime he remains being treated with IV Unasyn for his left foot wound and infection, PICC line was placed for IV antibiotics Unasyn upon discharge per recommendation of ID team Patient required ECF upon discharge, prior authorization is still pending He is on multiple pain regimen 09/09/2039 Patient still being treated for his left foot infection and wound. He has evidence of peripheral vascular disease, initially vascular surgery team are planning to do revascularization procedure for his left lower extremity however currently this is was postponed until outpatient basis. Patient informed and he agreed He continues to improve with IV antibiotic, currently he is on IV Unasyn and plan for him to be discharged on IV antibiotic. PICC line is in place Patient also wants to be DNR 09/11/2023 Patient discharged yesterday was held for placement I discussed the case with case consultant today, his insurance has lapsed and now his with no insurance and social services designee on the case for his discharge planning Clinically patient looks the same, no new complaint. Will check bladder scan that was less than 10. Patient does not need Stearns catheter Patient is aware with the discharge plan and is agreeable Will discharge patient to rehab once authorization is obtained 09/12/2023 Patient clinically looks the same. He has slightly worsening labs Patient has no insurance to go to rehab, patient is scheduled for surgery this coming Thursday 09/14. Continue with antibiotic patient awake alert, no new complaint No chest pain or dyspnea Patient planned to undergo vascular surgery of his left leg/ankle on this coming Sunday09/14/2023 Patient is awake and alert looks comfortable in bed No chest pain no dyspnea Is able get up from bed His left lower extremity cellulitis looks improvement with less warmth and tenderness and swelling. Remains on broad-spectrum antibiotics Patient planned for left femoral endarterectomy and left femoral-tibial bypass procedure and possible debridement Objective - Vital Signs Vital signs: Vital Signs Temp 98.3 F 09/14/23 20:37 Pulse 66 09/14/23 20:37 Resp 19 09/14/23 20:37 BP 132/78 09/14/23 20:37 Pulse Ox 97 09/14/23 20:37 FiO2 Intake & Output 09/14/23 09/14/23 09/15/23 06:59 18:59 06:59 Intake Total 580 520 240 Output Total 1200 950 Balance -620 -430 240 Weight 91.4 kg Intake: IV 40 Invasive Line 7 40 Intake, IV Titration 100 Amount Ampicillin-Sulbactam 3 gm 100 In Sodium Chloride 0.9% 100 ml @ 200 mls/hr IVPB Q6HR [facility] Rx#:[id number] Oral 480 480 240 Output: Urine 1200 950 Other: Voiding Method Toilet Toilet Urinal Urinal # Voids 1 0 - Exam GENERAL: The patient is alert and oriented x3, not in any acute distress. Well developed, well nourished. HEENT: Pupils are round and equally reacting to light. EOMI. No scleral icterus. No conjunctival pallor. Normocephalic, atraumatic. No pharyngeal erythema. No thyromegaly. CARDIOVASCULAR: S1 and S2 present. No murmurs, rubs, or gallops. PULMONARY: Chest is clear to auscultation, no wheezing , no crackles. ABDOMEN: Soft, nontender, nondistended, normoactive bowel sounds. No palpable organomegaly. MUSCULOSKELETAL: No joint swelling or deformity. -EXTREMITIES: No cyanosis, clubbing, or pedal edema. Left foot surgical wound with a recent a Place. Rest of exam is deferred to surgery team NEUROLOGICAL: Gross neurological examination did not reveal any focal deficits. SKIN: No rashes. no petechiae. - Labs CBC & Chem 7: 09/14/23 08:32 09/14/23 08:32 Labs: Abnormal Lab Results - Last 24 Hours (Table) 09/14/23 09/14/23 Range/Units 08:32 08:32 WBC 11.1 H (3.8-10.6) k/uL RBC 3.80 L (4.30-5.90) m/uL Hgb 10.6 L (13.0-17.5) gm/dL Hct 33.2 L (39.0-53.0) % Plt Count 516 H (150-450) k/uL Sodium 136 L (137-145) mmol/L Creatinine 0.65 L (0.66-1.25) mg/dL Glucose 109 H (74-99) mg/dL Calcium 8.3 L (8.4-10.2) mg/dL Assessment and Plan Assessment: Left foot gangrene and wound infection with cellulitis status post excision and debridement and 09/04. Angiogram showing significant disease of the left lower extremity Depression, with previous suicidal ideation. He is improved and patient was by psychiatrist who discontinued the sitter Alcohol lose disorder, patient consult and increased to quit. No withdrawal symptoms currently Hyponatremia, hypervolemic Bilateral pitting leg edema Plan: Patient scheduled for surgery of the left lower extremity on 09/14 including endarterectomy Continue with Unasyn. Follow-up final wound culture results Psychiatric evaluation is appreciated. Psychiatric team discontinued sitter and found patient does not meet criteria for inpatient psych unit, continue with medications recommended by psychiatrist Monitor sodium level and follow with pet adoption counselor recommendation. Status post Lasix Vascular surgery team of the case and patient is status post angiogram showing significant disease of the left lower extremity. Labs and medication were reviewed.. Continue same treatment. Continue with symptomatic treatment. Resume home medication. Monitor labs and vitals. DVT and GI prophylaxis. Further recommendations as per clinical course of the patient DVT prophylaxis: Subcutaneous heparin GI Prophylaxis: Pepcid PT/OT: Subacute rehab, I talked to the patient and he is agreeable Prognosis is guarded
[2023-09-15] MEDS ORDERED: PROPOFOL 10 MG/ML 20 ML VIAL IV ONE (08:13)
[2023-09-15] MEDS ORDERED: HEPARIN SODIUM,PORCINE 10,000 UNIT/ML 1 ML VIAL ONE (08:13)
[2023-09-15] MEDS ORDERED: PHENYLEPHRINE 10 MG/ML VIAL ONE (08:13)
[2023-09-15] MEDS ORDERED: ROCURONIUM 10 MG/ML (5 ML VIAL) IV ONE (08:13)
[2023-09-15] MEDS ORDERED: MIDAZOLAM 2 MG/2 ML VIAL ONE (08:13)
[2023-09-15] MEDS ORDERED: fentaNYL (PF) 50 MCG/ML 2 ML AMP ONE (08:13)
[2023-09-15] MEDS ORDERED: HYDROmorphone (PF) 1 MG/ML ONE (08:13)
[2023-09-15] MEDS ORDERED: LIDOCAINE 1% INJ 10MG/ML (20 ML MDV) ONE (08:13)
[2023-09-15] MEDS: IV FLUID CONTINUATION 1,000 ML IV ONE (08:13)
[2023-09-15] MEDS: ceFAZolin 1,000 MG in SODIUM CHLORIDE 0.9% 1,000 ML IRRIGATION ONE (08:20)
[2023-09-15] MEDS: HEPARIN SODIUM,PORCINE 10,000 UNIT in SODIUM CHLORIDE 0.9% 1,000 ML IRRIGATION ONE (08:20)
[2023-09-15] MEDS: ceFAZolin 4 GM in SODIUM CHLORIDE 0.9% 1,000 ML IRRIGATION ONE (08:20)
[2023-09-15] MEDS: LACTATED RINGERS 1,000 ML IV ONE ×4 (08:20→12:55)
[2023-09-15] MEDS: GELATIN SPONGE,ABSORB (LARGE) 1 EACH SPONGE TOPICAL ONE (09:27)
[2023-09-15] MEDS: THROMBIN (BOVINE) 5,000 UNIT VIAL TOPICAL ONE ×2 (09:27→12:37)
--- NOTE | 2023-09-15 10:10 | P.PN ---
Subjective 57-year-old gentleman with past medical history significant for duodenal ulcer, history of gastrointestinal bleed, peripheral arterial disease history of s/p right femoral endarterectomy, right SFA and profunda embolectomy 2016, history of colon diverticulosis, history of COPD, alcohol use, history of depression presents to the emergency department with complaints of wound noted on his foot for approximately 8 months. Patient said he has been using topical antibiotic however recently patient has noted that the wound was getting worse. Patient states that for approximately 1 week he has not removed his socks and decided to come to the emergency since patient was unable to walk. Patient does endorse that he has history of arterial disease however denies history of diabetes. Workup initiated in ER included CBC which showed WBC of 10.7 hemoglobin 12.6 platelet count of 329 Chemistry obtained in ER showed sodium of 119, potassium 4.2, dioxide 21 BUN 10 creatinine 0.53 X-ray obtained in ER showed soft tissue wound lateral to the fifth metatarsal head.. Further evaluation ordered including CT foot Patient started on IV Zosyn and vancomycin admitted to medical floor 09/04/23: patient seen and evaluated at bedside, CT angiogram lower extremity reviewed bilateral moderate to severe occlusive disease noted. , vascular surgery consulted. Patient started on aspirin and Lipitor. Appreciate input from Infectious Disease continue patient on IV antibiotic continue with wound care. Patient going for wound debridement made n.p.o. patient made suicidal ideation, continue one-to-one sitter will consult psychiatry 09/05/2023 This is a pleasant 57 years old male who presents on 09/03 for left foot infection on the wound which was been going on for 8 months, recently getting worse. He is status post excision and debridement and 09/04. Today postop day #1. His left foot in a dressing and pain was controlled. 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 When asked the patient he told me he has depression but he denies suicidal ideation or homicidal ideation currently. No evidence of active delirium tremens or alcohol withdrawal symptoms His wound culture is growing sensitive for Proteus and the vancomycin was discontinued Discussed with staff 09/06/2023 Patient transferred to [address] [place] [address] after the angiogram done yesterday by vascular surgery team showing significant peripheral vascular disease involvement the left lower extremity including the iliac arteries and tibia arteries as well. Patient remains on Unasyn and wound culture, Proteus, repeat wound culture growing gram-negative bacilli which is pending for now Patients sodium 128 and he has evidence of bilateral leg swelling. Is status post Lasix 20 mg 1 today 09/07/2023 Patient is awake and alert, no pain no distress, no new complaints No chest pain or dyspnea His left foot wound with a dressing in place. No significant pain Patient is planned to go for OR today for revascularization and direct hysterectomy and possible bypass procedure with vascular surgery team Patient low potassium and magnesium been replaced per protocol He is on Unasyn. Local withdrawal 09/08/2023 Patient awake and alert He is supposed to get surgery for his peripheral vascular disease of the left lower extremity including endarterectomy and bypass procedure however it was held and vascular surgery are considering doing it as an outpatient. In the meantime he remains being treated with IV Unasyn for his left foot wound and infection, PICC line was placed for IV antibiotics Unasyn upon discharge per recommendation of ID team Patient required ECF upon discharge, prior authorization is still pending He is on multiple pain regimen 09/09/2039 Patient still being treated for his left foot infection and wound. He has evidence of peripheral vascular disease, initially vascular surgery team are planning to do revascularization procedure for his left lower extremity however currently this is was postponed until outpatient basis. Patient informed and he agreed He continues to improve with IV antibiotic, currently he is on IV Unasyn and plan for him to be discharged on IV antibiotic. PICC line is in place Patient also wants to be DNR 09/11/2023 Patient discharged yesterday was held for placement I discussed the case with case packer and sealer today, his insurance has lapsed and now his with no insurance and social services assistant on the case for his discharge planning Clinically patient looks the same, no new complaint. Will check bladder scan that was less than 10. Patient does not need Stearns catheter Patient is aware with the discharge plan and is agreeable Will discharge patient to rehab once authorization is obtained 09/12/2023 Patient clinically looks the same. He has slightly worsening labs Patient has no insurance to go to rehab, patient is scheduled for surgery this coming Thursday 09/14. Continue with antibiotic patient awake alert, no new complaint No chest pain or dyspnea Patient planned to undergo vascular surgery of his left leg/ankle on this coming Sunday09/14/2023 Patient is awake and alert looks comfortable in bed No chest pain no dyspnea Is able get up from bed His left lower extremity cellulitis looks improvement with less warmth and tenderness and swelling. Remains on broad-spectrum antibiotics Patient planned for left femoral endarterectomy and left femoral-tibial bypass procedure and possible debridement 09/15/2023 Patient In bed comfortable. No chest pain or dyspnea. No other complaints. Vitals and labs reviewed. He has mild increased liver enzymes. We will check it tomorrow. However patient denies any right upper quadrant pain or tenderness hi Patient planned for left femoral endarterectomy and left femoral-tibial bypass procedure and possible debridement today Objective - Vital Signs Vital signs: Vital Signs Temp 97.7 F 09/15/23 04:00 Pulse 97 09/15/23 04:00 Resp 15 09/15/23 04:00 BP 105/68 09/15/23 04:00 Pulse Ox 98 09/15/23 04:00 FiO2 Intake & Output 09/14/23 09/15/23 09/15/23 18:59 06:59 18:59 Intake Total 520 920 902 Output Total 950 575 Balance -430 345 902 Intake: IV 40 902 Invasive Line 7 40 Intake, IV Titration 200 Amount Ampicillin-Sulbactam 3 gm 200 In Sodium Chloride 0.9% 100 ml @ 200 mls/hr IVPB Q6HR [facility] Rx#:[id number] Oral 480 720 Output: Urine 950 575 Other: Voiding Method Toilet Toilet Urinal Urinal # Voids 0 3 - Exam GENERAL: The patient is alert and oriented x3, not in any acute distress. Well developed, well nourished. HEENT: Pupils are round and equally reacting to light. EOMI. No scleral icterus. No conjunctival pallor. Normocephalic, atraumatic. No pharyngeal erythema. No thyromegaly. CARDIOVASCULAR: S1 and S2 present. No murmurs, rubs, or gallops. PULMONARY: Chest is clear to auscultation, no wheezing , no crackles. ABDOMEN: Soft, nontender, nondistended, normoactive bowel sounds. No palpable organomegaly. MUSCULOSKELETAL: No joint swelling or deformity. -EXTREMITIES: No cyanosis, clubbing, or pedal edema. Left foot surgical wound with a recent a Place. Rest of exam is deferred to surgery team NEUROLOGICAL: Gross neurological examination did not reveal any focal deficits. SKIN: No rashes. no petechiae. - Labs CBC & Chem 7: 09/14/23 08:32 09/14/23 08:32 Assessment and Plan Assessment: Left foot gangrene and wound infection with cellulitis status post excision and debridement and 09/04. Angiogram showing significant disease of the left lower extremity Depression, with previous suicidal ideation. He is improved and patient was by psychiatrist who discontinued the sitter Alcohol lose disorder, patient consult and increased to quit. No withdrawal symptoms currently Hyponatremia, hypervolemic Bilateral pitting leg edema Plan: Patient scheduled for surgery of the left lower extremity on 09/14 including endarterectomy Continue with Unasyn. Follow-up final wound culture results Psychiatric evaluation is appreciated. Psychiatric team discontinued sitter and found patient does not meet criteria for inpatient psych unit, continue with medications recommended by psychiatrist Monitor sodium level and follow with conference center manager recommendation. Status post Lasix Vascular surgery team of the case and patient is status post angiogram showing significant disease of the left lower extremity. Labs and medication were reviewed.. Continue same treatment. Continue with symptomatic treatment. Resume home medication. Monitor labs and vitals. DVT and GI prophylaxis. Further recommendations as per clinical course of the patient DVT prophylaxis: Subcutaneous heparin GI Prophylaxis: Pepcid PT/OT: Subacute rehab, I talked to the patient and he is agreeable Prognosis is guarded
[2023-09-15] MEDS ORDERED: ceFAZolin 1 GM/50 ML BAG (PMX) ONE (12:28)
--- NOTE | 2023-09-15 15:06 | P.OP ---
Date of Procedure: 09/15/23 Preoperative Diagnosis: Critical limb ischemia of left lower extremity Left lower extremity common femoral artery occlusion, superficial femoral artery occlusion with reconstitution below the knee popliteal Left foot non-healing wound Postoperative Diagnosis: Same Procedure(s) Performed: Left common femoral artery endarterectomy with patch angioplasty Left femoral to below knee popliteal artery bypass with InSitu greater saphenous graft Selective left lower extremity angiogram Left femoral-popliteal bypass balloon angioplasty Anesthesia: LEENA Surgeon: Marcos Payne Canine Service Teacher #1: Surekha Stearns Estimated Blood Loss (ml): 50 Pathology: other (Femoral plaque, femoral lymph nodes) Condition: stable Disposition: PACU Indications for Procedure: 58-year-old gentleman with history of left lower extremity non healing foot wound presents to the operative suite for left femoral-below knee popliteal bypass after workup demonstrated femoral occlusion with reconstitution below knee to hopefully improve blood flow to help heal the wound and prevent a mputation. Operative Findings: Occluded left femoral artery with dense plaque One vessel runoff to ankle Description of Procedure: After written and informed consent was obtained from the patient all risks benefits and competitions were described the patient is brought to the operative suite and laid in a supine position. The area of the abdomen, left lower extremity was prepped and draped in usual sterile fashion after appropriate anesthetic was performed per the anesthesiologist. A timeout was performed in normal fashion. Antibiotics were administered prior to incision. A vertical incision was created at the left groin and dissection was carried down to the common femoral artery. Femoral artery was densely calcified. The common f emoral, superficial femoral and profundus femoris arteries were dissected free in a circumferential manner and controlled with vessel loops. Attention was then placed to the greater saphenous vein which was dissected free up to the saphenofemoral junction. A vessel loop was then placed around this area. Attention was then placed distally and a transverse incision was created on the medial aspect of the lower leg just below the knee with a 15 blade scalpel. Dissection was then carried down with electrocautery through the fascia to the popliteal artery. Popliteal artery, tibioperoneal trunk was then dissected free in a circumferential manner and controlled with vessel loops. The anterior tibial artery was also dissected free and visualized. Once controlled attention was then placed to dissection of the greater saphenous vein. Meticulous dissection was then performed of the greater saphenous vein and controlled with a blue vessel loop. Patient was then administered heparin. Endarterectomy was then performed at the common femoral artery extending up towards the external iliac artery with an 11 blade scalpel and Dwyer scissors. Dense plaque was noted and endarterectomy was performed with removal of large amount of plaque with good backbleeding noted from the profunda. Once completed there was good inflow with palpable pulse. Utilizing a bovine pericardial patch a patch angioplasty was then performed with 6-0 Prolene suture in a running fashion. Once completed control was released revealing good pulsatile flow through the patch. Control was once again placed and vascular clamps were placed and the proximal greater saphenous vein was then resected and suture ligated at the saphenofemoral junction. The vein was then brought over to the femoral artery and patch arteriotomy was then created with 11 blade scalpel and extended with Pott Navarro scissors. End-to-side anastomosis was then created with 6-0 Prolene suture in a running fashion after the vein was dilated with serial dilation. Good backbleeding was noted from the vein and good brisk forward bleeding was noted from the artery. Final sutures were then placed good pulsatile blood flow was noted within the vein bypass. The vein was then ligated distally and utilizing a valvulotome the valves were destroyed up to the proximal aspect at the previous anastomosis until there was good pulsatile bleeding noted through the bypass. There was an issue with the valvulotome going into a different branch of greater saphenous vein that had already been ligated and therefore multiple incisions were created overlying the greater saphenous vein and a large branch was noted which was suture-ligated to direct the valvulotome in the correct position. Once it was directed in the appropriate vein valves were destroyed and good pulsatile blood flow was noted. There was a large amount of vein that when the subcutaneous tissue was brought over to close it was kinking and therefore decision was made to finish the bypass and see if this would straighten it out and if not would have to be revised. The tibial peroneal trunk was then controlled and arteriotomy was created with 11 blade scalpel and extended with Pott Navarro scissors. There was good backbleeding noted. The vein was then spatulated and an end-to-side anastomosis was created with 6-0 Prolene suture in a running fashion. Prior to last sutures being placed backbleeding was once again assessed which was not adequate due to the kink proximally. The vein was then cut and the excess vein was removed and an end-to-end anastomosis was created. There was still diminished blood flow through the bypass and therefore decision was made to perform an angiogram. The vein proximally was accessed with a 6 Arabic sheath in normal fashion and selective angiogram was performed demonstrating decreased flow at the anastomosis site at the midportion of the vein as well as distally where the vein decreased to about 20%. 018 wire was then placed across these areas and balloon angioplasty was performed with a 5 x 40 mm balloon. This improved the pulse significantly and final angiogram was obtained demonstrating good pulsatile blood flow through the bypass distally with one-vessel runoff to the ankle. Doppler signals were then noted distal to the bypass and were multiphasic. The areas were then copiously irrigated with antibiotic solution. The incisions were then closed in a multilayer fashion after hemostasis was assured with Gelfoam and thrombin and the skin was then cleansed and dressings were placed. The patient tolerated procedure well was sent to PACU for recovery.
--- NOTE | 2023-09-15 15:20 | FL ---
EXAMINATION TYPE: FL guidance operating room DATE OF EXAM: 09/15/2023 Comparison: None Clinical History: 58-year-old male Fem Pop Findings: fem pop bypass left lower extremity 3 min 39 sec fl 7.8961 Gycm2 DAP 11 images provided Impression: Intraoperative fluoroscopy as above.
[2023-09-15 18:17] LABS: Glucose,Whole Blood 95 mg/dL (70-110)
[2023-09-15] MEDS: RIVAROXABAN 2.5 MG TABLET PO SCH (21:50)
[2023-09-16 09:43] LABS: ALT 55 U/L (4-49); AST 57 U/L (17-59); African American GFR (CKD) >90 (>60 ml/min/1.73 sqM); Albumin 2.2 g/dL (3.5-5.0); Alkaline Phosphatase 170 U/L (38-126); Anion Gap 6 mmol/L; Bilirubin, Delta 0.3 mg/dL (0.0-0.2); Bilirubin,Unconjugated 0.4 mg/dL (0.0-1.1); Blood Urea Nitrogen 9 mg/dL (9-20); Calcium 7.8 mg/dL (8.4-10.2); Carbon Dioxide 25 mmol/L (22-30); Chloride 102 mmol/L (98-107); Glucose 88 mg/dL (74-99); Non-African American GFR(CKD) >90 (>60 ml/min/1.73 sqM); Potassium 3.6 mmol/L (3.5-5.1); Sodium 133 mmol/L (137-145); Total Bilirubin 0.7 mg/dL (0.2-1.3); Total Protein 5.4 g/dL (6.3-8.2)
--- NOTE | 2023-09-16 10:38 | P.PN ---
Subjective Patient is seen in follow-up for hyponatremia. Sodium level 133 today. Oral intake good. No vomiting or diarrhea. Good urine output. On IV Lasix. Vital signs are stable. General: No acute distress. HEENT: Head exam is unremarkable. LUNGS: No audible rhonchi or wheezes. HEART: Rate and Rhythm are regular. ABDOMEN: Nontender. EXTREMITITES: 1+ edema. No drainage noted. Objective - Vital Signs Vital signs: Vital Signs Temp 98.7 F 09/16/23 04:00 Pulse 95 09/16/23 04:00 Resp 20 09/16/23 04:00 BP 135/66 09/16/23 04:00 Pulse Ox 96 09/16/23 04:00 FiO2 Intake & Output 09/15/23 09/16/23 09/16/23 17:59 06:59 18:59 Intake Total Output Total Balance Intake: IV Output: Urine Estimated Blood Loss Other: Voiding Method - Labs CBC & Chem 7: 09/14/23 08:32 09/16/23 08:37 Labs: Abnormal Lab Results - Last 24 Hours (Table) 09/16/23 Range/Units 08:37 Sodium 133 L (137-145) mmol/L Creatinine 0.64 L (0.66-1.25) mg/dL Calcium 7.8 L (8.4-10.2) mg/dL Delta Bilirubin 0.3 H (0.0-0.2) mg/dL ALT 55 H (4-49) U/L Alkaline Phosphatase 170 H (38-126) U/L Total Protein 5.4 L (6.3-8.2) g/dL Albumin 2.2 L (3.5-5.0) g/dL Assessment and Plan Plan: Assessment: 1. Hyponatremia from poor solute intake and excessive fluid intake. Now hypervolemic on Lasix. Urine sodium less than 20 and urine osmolality 312. Improved with IV hydration. TSH normal. Sodium level 133 today. 2. Left foot wound on antibiotics. Culture positive for Proteus. Infectious disease and vascular surgery following. Status post debridement September 04, 2023. 3. Peripheral arterial disease with prior stenting. Underwent left common femoral artery endarterectomy with patch angioplasty, left femoral to below-knee popliteal artery bypass September 15, 2023. 4. Urinary retention status post Stearns catheter placement - Stearns catheter had been removed but was placed again yesterday for surgery.. On Flomax. 5. Hypokalemia from diuresis. Plan: Encouraged oral intake. Maintain 1500 cc fluid restriction. Maintain IV Lasix. Replace potassium. Repeat labs in the morning. Okay to DC Stearns catheter from nephrology standpoint.
--- NOTE | 2023-09-16 11:28 | P.PN ---
Subjective 57-year-old gentleman with past medical history significant for duodenal ulcer, history of gastrointestinal bleed, peripheral arterial disease history of s/p right femoral endarterectomy, right SFA and profunda embolectomy 2016, history of colon diverticulosis, history of COPD, alcohol use, history of depression presents to the emergency department with complaints of wound noted on his foot for approximately 8 months. Patient said he has been using topical antibiotic however recently patient has noted that the wound was getting worse. Patient states that for approximately 1 week he has not removed his socks and decided to come to the emergency since patient was unable to walk. Patient does endorse that he has history of arterial disease however denies history of diabetes. Workup initiated in ER included CBC which showed WBC of 10.7 hemoglobin 12.6 platelet count of 329 Chemistry obtained in ER showed sodium of 119, potassium 4.2, dioxide 21 BUN 10 creatinine 0.53 X-ray obtained in ER showed soft tissue wound lateral to the fifth metatarsal head.. Further evaluation ordered including CT foot Patient started on IV Zosyn and vancomycin admitted to medical floor 09/04/23: patient seen and evaluated at bedside, CT angiogram lower extremity reviewed bilateral moderate to severe occlusive disease noted. , vascular surgery consulted. Patient started on aspirin and Lipitor. Appreciate input from Infectious Disease continue patient on IV antibiotic continue with wound care. Patient going for wound debridement made n.p.o. patient made suicidal ideation, continue one-to-one sitter will consult psychiatry 09/05/2023 This is a pleasant 57 years old male who presents on 09/03 for left foot infection on the wound which was been going on for 8 months, recently getting worse. He is status post excision and debridement and 09/04. Today postop day #1. His left foot in a dressing and pain was controlled. 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 When asked the patient he told me he has depression but he denies suicidal ideation or homicidal ideation currently. No evidence of active delirium tremens or alcohol withdrawal symptoms His wound culture is growing sensitive for Proteus and the vancomycin was discontinued Discussed with staff 09/06/2023 Patient transferred to [address] [place] [address] after the angiogram done yesterday by vascular surgery team showing significant peripheral vascular disease involvement the left lower extremity including the iliac arteries and tibia arteries as well. Patient remains on Unasyn and wound culture, Proteus, repeat wound culture growing gram-negative bacilli which is pending for now Patients sodium 128 and he has evidence of bilateral leg swelling. Is status post Lasix 20 mg 1 today 09/07/2023 Patient is awake and alert, no pain no distress, no new complaints No chest pain or dyspnea His left foot wound with a dressing in place. No significant pain Patient is planned to go for OR today for revascularization and direct hysterectomy and possible bypass procedure with vascular surgery team Patient low potassium and magnesium been replaced per protocol He is on Unasyn. Local withdrawal 09/08/2023 Patient awake and alert He is supposed to get surgery for his peripheral vascular disease of the left lower extremity including endarterectomy and bypass procedure however it was held and vascular surgery are considering doing it as an outpatient. In the meantime he remains being treated with IV Unasyn for his left foot wound and infection, PICC line was placed for IV antibiotics Unasyn upon discharge per recommendation of ID team Patient required [facility] upon discharge, prior authorization is still pending He is on multiple pain regimen 09/09/2039 Patient still being treated for his left foot infection and wound. He has evidence of peripheral vascular disease, initially vascular surgery team are planning to do revascularization procedure for his left lower extremity however currently this is was postponed until outpatient basis. Patient informed and he agreed He continues to improve with IV antibiotic, currently he is on IV Unasyn and plan for him to be discharged on IV antibiotic. PICC line is in place Patient also wants to be DNR 09/11/2023 Patient discharged yesterday was held for placement I discussed the case with continuous pillowcase cutter today, his insurance has lapsed and now his with no insurance and social sciences instructor on the case for his discharge planning Clinically patient looks the same, no new complaint. Will check bladder scan that was less than 10. Patient does not need Stearns catheter Patient is aware with the discharge plan and is agreeable Will discharge patient to rehab once authorization is obtained 09/12/2023 Patient clinically looks the same. He has slightly worsening labs Patient has no insurance to go to rehab, patient is scheduled for surgery this coming Thursday 09/14. Continue with antibiotic patient awake alert, no new complaint No chest pain or dyspnea Patient planned to undergo vascular surgery of his left leg/ankle on this coming Sunday09/14/2023 Patient is awake and alert looks comfortable in bed No chest pain no dyspnea Is able get up from bed His left lower extremity cellulitis looks improvement with less warmth and tenderness and swelling. Remains on broad-spectrum antibiotics Patient planned for left femoral endarterectomy and left femoral-tibial bypass procedure and possible debridement 09/15/2023 Patient In bed comfortable. No chest pain or dyspnea. No other complaints. Vitals and labs reviewed. He has mild increased liver enzymes. We will check it tomorrow. However patient denies any right upper quadrant pain or tenderness hi Patient planned for left femoral endarterectomy and left femoral-tibial bypass procedure and possible debridement today 09/16/2023 Patient s/p Left common femoral artery endarterectomy with patch angioplasty andLeft femoral to below knee popliteal artery bypass with InSitu greater saphenous graft, patient is postop day #1 He denies chest pain or dyspnea he is awake and calm Overnight he pulled his wound VAC from his left leg. Vascular surgery had to come and clean the area and put the dressing back in. Pain is minimal this morning. No chest pain dyspnea. No other new complaints His liver enzymes are improving. Rest of labs and vitals look stable Remains on Unasyn. Also he is on Xarelto 2.5 mg started by surgery team Objective - Vital Signs Vital signs: Vital Signs Temp 98.7 F 09/16/23 04:00 Pulse 95 09/16/23 04:00 Resp 20 09/16/23 04:00 BP 135/66 09/16/23 04:00 Pulse Ox 96 09/16/23 04:00 FiO2 Intake & Output 09/15/23 09/16/23 09/16/23 17:59 06:59 18:59 Intake Total Output Total Balance Intake: IV Output: Urine Estimated Blood Loss Other: Voiding Method - Exam GENERAL: The patient is alert and oriented x3, not in any acute distress. Well developed, well nourished. HEENT: Pupils are round and equally reacting to light. EOMI. No scleral icterus. No conjunctival pallor. Normocephalic, atraumatic. No pharyngeal erythema. No thyromegaly. CARDIOVASCULAR: S1 and S2 present. No murmurs, rubs, or gallops. PULMONARY: Chest is clear to auscultation, no wheezing , no crackles. ABDOMEN: Soft, nontender, nondistended, normoactive bowel sounds. No palpable organomegaly. MUSCULOSKELETAL: No joint swelling or deformity. -EXTREMITIES: No cyanosis, clubbing, or pedal edema. Left foot surgical wound with dressing in Place. Rest of exam is deferred to surgery team. Your surgical wounds with dressing in place also on the medial side of the left thigh and left leg NEUROLOGICAL: Gross neurological examination did not reveal any focal deficits. SKIN: No rashes. no petechiae. - Labs CBC & Chem 7: 09/14/23 08:32 09/16/23 08:37 Labs: Abnormal Lab Results - Last 24 Hours (Table) 09/16/23 Range/Units 08:37 Sodium 133 L (137-145) mmol/L Creatinine 0.64 L (0.66-1.25) mg/dL Calcium 7.8 L (8.4-10.2) mg/dL Delta Bilirubin 0.3 H (0.0-0.2) mg/dL ALT 55 H (4-49) U/L Alkaline Phosphatase 170 H (38-126) U/L Total Protein 5.4 L (6.3-8.2) g/dL Albumin 2.2 L (3.5-5.0) g/dL Assessment and Plan Assessment: -Left foot gangrene and wound infection with cellulitis status post excision and debridement and 09/04. Angiogram showing significant disease of the left lower extremity. Status post Left common femoral artery endarterectomy with patch angioplasty andLeft femoral to below knee popliteal artery bypass with InSitu greater saphenous graft, -Depression, with previous suicidal ideation. He is improved and patient was by psychiatrist who discontinued the sitter -Alcohol lose disorder, patient consult and increased to quit. No withdrawal symptoms currently -Hyponatremia, hypervolemic -Bilateral pitting leg edema Plan: Patient s is a status post surgery of the left lower extremity on 09/14 including endarterectomy Continue with Unasyn. Follow-up final wound culture results Psychiatric evaluation is appreciated. Psychiatric team discontinued sitter and found patient does not meet criteria for inpatient psych unit, continue with medications recommended by psychiatrist Monitor sodium level and follow with tube closing machine operator recommendation. Labs and medication were reviewed.. Continue same treatment. Continue with symptomatic treatment. Resume home medication. Monitor labs and vitals. DVT and GI prophylaxis. Further recommendations as per clinical course of the patient DVT prophylaxis: Xarelto 2.5 mg GI Prophylaxis: Pepcid PT/OT: Subacute rehab, I talked to the patient and he is agreeable Prognosis is guarded
[2023-09-16] MEDS: POTASSIUM CHLORIDE ER 20 MEQ TAB.ER PO STA (12:09)
--- NOTE | 2023-09-16 12:45 | P.PN ---
Subjective Progress Note Date: 09/16/23 Patient seen and examined. States he feels somewhat better in his leg as he does not need to continuously Put it over the side of the bed for pain control. Denies any issues otherwise. Overnight events noted, he did remove dressings and wound VAC. Objective - Vital Signs Vital signs: Vital Signs Temp 98.6 F 09/16/23 08:00 Pulse 74 09/16/23 08:00 Resp 20 09/16/23 08:00 BP 122/65 09/16/23 08:00 Pulse Ox 96 09/16/23 08:00 FiO2 Intake & Output 09/15/23 09/16/23 09/16/23 17:59 06:59 18:59 Intake Total 240 Output Total 1200 Balance -960 Intake: IV Oral 240 Output: Urine 1200 Estimated Blood Loss Other: Voiding Method Indwelling Catheter - Exam No acute distress resting comfortably. Sitting at the side of the bed. Dressings in place. No significant erythema or drainage. Dressings are dry. Palpable pulse in the graft at the knee with good signal. Foot dressings in place - Labs CBC & Chem 7: 09/14/23 08:32 09/16/23 08:37 Labs: Abnormal Lab Results - Last 24 Hours (Table) 09/16/23 Range/Units 08:37 Sodium 133 L (137-145) mmol/L Creatinine 0.64 L (0.66-1.25) mg/dL Calcium 7.8 L (8.4-10.2) mg/dL Delta Bilirubin 0.3 H (0.0-0.2) mg/dL ALT 55 H (4-49) U/L Alkaline Phosphatase 170 H (38-126) U/L Total Protein 5.4 L (6.3-8.2) g/dL Albumin 2.2 L (3.5-5.0) g/dL Assessment and Plan Assessment: Postop left femoral endarterectomy with patch angioplasty, left femoral to distal popliteal in situ saphenous vein bypass, left lower extremity angiogram and balloon angioplasty of saphenous vein bypass and debridement of foot Left superficial femoral artery and common femoral artery occlusions Annamaria 6 peripheral arterial disease Chronic left foot/lower extremity wound status post debridement Cellulitis History of peripheral arterial disease with previous right lower extremity stenting and femoropopliteal bypass Suicidal ideations on suicide watch Plan: Continue with local wound care for the foot. Continue medications as ordered. Okay to reinitiate DC planning. Activity as tolerated
--- NOTE | 2023-09-16 14:35 | P.PN ---
Subjective Progress Note Date: 09/15/23 Principal diagnosis: Left foot wound and cellulitis Patient is a 57-year-old male with a past medical history significant for COPD PAD in this patient who did have a previous history of right femoropopliteal bypass at [facility] anxiety depression current ever yday smoker presented to the hospital worsening discoloration and wound to the left foot that has been there for couple of months. Patient is status post excisional debridement of the left foot completed by vascular surgery operative report mention no evidence of osteomyelitis. On today's evaluation that is 09/15/2023, patient has been afebrile, patient is breathing comfortably and is currently on room air, patient denies having any significant cough no chest pain shortness of breath, patient denies nausea vomiting or diarrhea and no abdominal pain, pain to the left foot is currently controlled. Patient white count is 11.1, creatinine 0.65 Objective - Vital Signs Vital signs: Vital Signs Temp 97.7 F 09/15/23 04:00 Pulse 97 09/15/23 04:00 Resp 15 09/15/23 04:00 BP 105/68 09/15/23 04:00 Pulse Ox 98 09/15/23 04:00 FiO2 Intake & Output 09/14/23 09/15/23 09/15/23 18:59 06:59 18:59 Intake Total 772 755 9991 Output Total 950 575 Balance -844 447 9551 Intake: IV 40 2902 Invasive Line 7 40 Intake, IV Titration 200 Amount Ampicillin-Sulbactam 3 gm 200 In Sodium Chloride 0.9% 100 ml @ 200 mls/hr IVPB Q6HR [facility] Rx#:[id number] Oral 480 720 Output: Urine 950 575 Other: Voiding Method Toilet Toilet Urinal Urinal # Voids 0 3 - Exam GENERAL DESCRIPTION: Middle-age male lying in bed in no distress RESPIRATORY SYSTEM: Unlabored breathing , decreased breath sounds at bases HEART: S1 S2 regular rate and rhythm , ABDOMEN: Soft , no tenderness EXTREMITIES: Left foot currently dressed minimal drainage on the dressing - Labs CBC & Chem 7: 09/14/23 08:32 09/16/23 08:37 Assessment and Plan (1) Cellulitis of left foot Current Visit: Yes Status: Acute Code(s): L03.116 - CELLULITIS OF LEFT LOWER LIMB SNOMED Code(s): 75264123169052946 (2) Infected wound Current Visit: Yes Status: Acute Code(s): T14.8XXA - OTHER INJURY OF UNSPECIFIED BODY REGION, INITIAL ENCOUNTER; L08.9 - LOCAL INFECTION OF THE SKIN AND SUBCUTANEOUS TISSUE, UNSP SNOMED Code(s): 80839260 Plan: 1-1patient presented to hospital with extensive infection/wound to the left foot area likely component of ischemia with secondary cellulitis, patient is status post surgical debridement and deep culture, operative report did not mention any extension of the wound 2-patient cultures grew Proteus sensitive to Unasyn but resistant/intermediate to Rocephin, anaerobe culture have been negative 3--patient to continue on with local wound care per the surgical team 4patient is status post left femoral-popliteal bypass hopefully will help with healing of his left foot wound, patient to continue with Unasyn mother at the bedside questions were answered Dictation was produced using [employer] dictation software. please excuse any grammatical, word or spelling errors. Time with Patient: Less than 30
--- NOTE | 2023-09-16 14:37 | P.PN ---
Subjective Progress Note Date: 09/16/23 Principal diagnosis: Left foot wound and cellulitis Patient is a 57-year-old male with a past medical history significant for COPD PAD in this patient who did have a previous history of right femoropopliteal bypass at [facility] anxiety depression current ever yday smoker presented to the hospital worsening discoloration and wound to the left foot that has been there for couple of months. Patient is status post excisional debridement of the left foot completed by vascular surgery operative report mention no evidence of osteomyelitis.Patient is status post left common femoral artery endarterectomy with patch angioplasty, Left femoral to below knee popliteal artery bypass with InSitu greater saphenous graft, Selective left lower extremity angiogram and Left femoral-popliteal bypass balloon angioplasty, procedure completed on 09/15/2023. On today's visit that is 09/16/2023,the patient denies any fever or any chills, patient is breathing comfortably on 2 L nasal cannula oxygen, the patient denies chest pain shortness of breath and no significant cough, patient denies abdominal pain, no nausea vomiting or diarrhea. Patient still complaining of pain to the left lower extremity but no worsening. Patient did have a creatinine 0.64 no CBC was done today Objective - Vital Signs Vital signs: Vital Signs Temp 98.6 F 09/16/23 08:00 Pulse 74 09/16/23 08:00 Resp 20 09/16/23 08:00 BP 122/65 09/16/23 08:00 Pulse Ox 96 09/16/23 08:00 FiO2 Intake & Output 09/15/23 09/16/23 09/16/23 17:59 06:59 18:59 Intake Total 240 Output Total 1200 Balance -960 Intake: IV Oral 240 Output: Urine 1200 Estimated Blood Loss Other: Voiding Method Indwelling Catheter - Exam GENERAL DESCRIPTION: Middle-age male lying in bed in no distress RESPIRATORY SYSTEM: Unlabored breathing , decreased breath sounds at bases HEART: S1 S2 regular rate and rhythm , ABDOMEN: Soft , no tenderness EXTREMITIES: Left foot currently dressed, review of the picture taken by the nursing staff did have some clear however still have some necrotic skin - Labs CBC & Chem 7: 09/14/23 08:32 09/16/23 08:37 Labs: Abnormal Lab Results - Last 24 Hours (Table) 09/16/23 Range/Units 08:37 Sodium 133 L (137-145) mmol/L Creatinine 0.64 L (0.66-1.25) mg/dL Calcium 7.8 L (8.4-10.2) mg/dL Delta Bilirubin 0.3 H (0.0-0.2) mg/dL ALT 55 H (4-49) U/L Alkaline Phosphatase 170 H (38-126) U/L Total Protein 5.4 L (6.3-8.2) g/dL Albumin 2.2 L (3.5-5.0) g/dL Assessment and Plan (1) Cellulitis of left foot Current Visit: Yes Status: Acute Code(s): L03.116 - CELLULITIS OF LEFT LOWER LIMB SNOMED Code(s): 73348280186973397 (2) Infected wound Current Visit: Yes Status: Acute Code(s): T14.8XXA - OTHER INJURY OF UNSPECIFIED BODY REGION, INITIAL ENCOUNTER; L08.9 - LOCAL INFECTION OF THE SKIN AND SUBCUTANEOUS TISSUE, UNSP SNOMED Code(s): 68355341 Plan: 1-1patient presented to hospital with extensive infection/wound to the left foot area likely component of ischemia with secondary cellulitis, patient is status post surgical debridement and deep culture, operative report did not mention any extension of the wound 2-patient cultures grew Proteus sensitive to Unasyn but resistant/intermediate to Rocephin, anaerobe culture have been negative 3--patient to continue on with local wound care per the surgical team 4patient is status post left femoral-popliteal bypass completed on 09/15/2023, patient to continue with Unasyn for underlying infection and monitor clinical course closely Dictation was produced using [employer] dictation software. please excuse any grammatical, word or spelling errors. Time with Patient: Less than 30
[2023-09-16] MEDS: METOPROLOL SUCCINATE (ER) 25 MG TAB.ER.24H PO SCH (17:24)
--- NOTE | 2023-09-16 18:16 | P.CRDCN ---
History of Present Illness Consult date: 09/16/23 History of present illness: HISTORY OF PRESENTING ILLNESS 87-year-old male with PMH of prior GI bleeding, PAD s/p right SFA profunda embolectomy and bypass surgery. Recently underwent left femoropopliteal bypass. He also has history of COPD, alcohol abuse, depression. Patient has had a prolonged hospital stay. He was admitted on 09/03/2023. He underwent left femoral endarterectomy with patch angioplasty, left femoral to distal popliteal in situ saphenous vein bypass, left lower extremity angiogram and balloon angioplasty of saphenous vein bypass and debridement of foot. He is also dealing with chronic nonhealing left lower extremity wound and cellulitis. Today around 7 AM it was noticed that patient had a short run of nonsustained ventricular tachycardia during which patient was asymptomatic. His potassium was 3.6. Which has been replaced. His magnesium was 1.6 which has not been replaced. I will give him 2 g of IV mag sulfate. REVIEW OF SYSTEMS 14 point review of system is negative except what is mentioned above in HPI. PHYSICAL EXAMINATION Vital signs reviewed. Head: Normocephalic. Eyes: Sclerae nonicteric. Neck: Brisk carotid upstroke, no jugular venous distention. Lungs: Clear to auscultation. Heart: Regular rate and rhythm, S1-S2, no S3, no murmur or rub. Abdomen: Soft nontender, positive bowel sounds. Extremities: No edema, intact distal pulses. Neuro: Alert, oritented, no focal deficits. Detailed neuro exam was not performed. ASSESSMENT nonsustained ventricular tachycardia, asymptomatic. Severe PAD s/p femoral endarterectomy with patch angioplasty, left femoral to distal popliteal in situ saphenous vein bypass, left lower extremity angiogram and balloon angioplasty of saphenous vein bypass and debridement of foot Suicidal ideation and depression PLAN His potassium was 3.6. Which has been replaced. His magnesium was 1.6 which has not been replaced. I will give him 2 g of IV mag sulfate. Will obtain an echocardiogram to make sure there is no concerns of cardiomyopathy Metoprolol succinate 25 mg daily Agree with aspirin, atorvastatin, Xarelto 2.5 mg twice daily Ryan Sherman MD, FACC, RPVI Thank you for allowing [facility] to participate in this patient's care. Feel free to reach out in case of any followup questions. Past Medical History Past Medical History: COPD, Vascular Disorder Additional Past Medical History / Comment(s): PVD, DVT R leg-recent R femoral popliteal bypass at [facility] 02/22/17, History of Any Multi-Drug Resistant Organisms: None Reported Past Surgical History: Orthopedic Surgery Additional Past Surgical History / Comment(s): R fem pop bypass 02/22/17 [facility], bilateral knee arthroscopic surgeries. Past Anesthesia/Blood Transfusion Reactions: No Reported Reaction Additional Past Anesthesia/Blood Transfusion Reaction / Comment(s): Pt is currently receiving blood-no reaction at this time. Past Psychological History: Anxiety, Depression Smoking Status: Current every day smoker Past Alcohol Use History: Daily, Heavy Past Drug Use History: None Reported - Past Family History Mother Family Medical History: Cancer, Hyperlipidemia Additional Family Medical History / Comment(s): Mother had skin cancer. She is living. Father Family Medical History: Hyperlipidemia, Hypertension Additional Family Medical History / Comment(s): Father has heart condition. Medications and Allergies Home Medications Medication Instructions Recorded Confirmed Type Omeprazole 20 mg PO HS 09/03/23 09/03/23 History ALPRAZolam [Xanax] 0.5 mg PO HS PRN #3 09/10/23 09/03/23 Rx Acetaminophen Tab [Tylenol] 650 mg PO Q6HR PRN tab 09/10/23 Rx Ampicillin Sodium/Sulbactam Na 3 gm IV Q6H 21 Days each 09/10/23 Rx [Unasyn 3 gm Vial] Aspirin 81 mg PO DAILY tab 09/10/23 Rx Atorvastatin [Lipitor] 40 mg PO HS tab 09/10/23 Rx Citalopram Hydrobromide [CeleXA] 40 mg PO HS tab 09/10/23 Rx Collagenase [Santyl Ointment] 1 applic TOPICAL DAILY each 09/10/23 Rx Melatonin 5 mg PO HS PRN #10 tab 09/10/23 Rx Mirtazapine [Remeron] 15 mg PO HS tab 09/10/23 Rx Tamsulosin [Flomax] 0.4 mg PO PC-BRKFST #30 cap 09/10/23 Rx oxyCODONE-APAP 5-325MG [Percocet 1 each PO Q8HR PRN #6 tab 09/10/23 Rx 5-325 mg] Allergies Allergy/AdvReac Type Severity Reaction Status Date / Time No Known Allergies Allergy Verified 09/04/23 15:37 Physical Exam Vitals: Vital Signs Temp Pulse Resp BP Pulse Ox 09/16/23 16:00 98.9 F 82 18 121/68 97 09/16/23 12:00 99.8 F H 94 18 114/69 97 09/16/23 08:00 98.6 F 74 20 122/65 96 09/16/23 04:00 98.7 F 95 20 135/66 96 09/16/23 00:00 99.3 F 87 16 119/64 96 09/15/23 20:00 99.4 F 99 18 123/66 96 09/15/23 18:10 89 18 149/82 98 Intake and Output 09/16/23 09/16/23 09/16/23 06:59 14:59 22:59 Intake Total 358 522 Output Total 1200 Balance -842 522 Intake: Oral 358 522 Output: Urine 1200 Other: Voiding Method Indwelling Catheter Results 09/14/23 08:32 09/16/23 08:37 Cardiac Enzymes 09/16/23 Range/Units 08:37 AST 57 (17-59) U/L Comprehensive Metabolic Panel 09/16/23 Range/Units 08:37 Sodium 133 L (137-145) mmol/L Potassium 3.6 (3.5-5.1) mmol/L Chloride 102 (98-107) mmol/L Carbon Dioxide 25 (22-30) mmol/L BUN 9 (9-20) mg/dL Creatinine 0.64 L (0.66-1.25) mg/dL Glucose 88 (74-99) mg/dL Calcium 7.8 L (8.4-10.2) mg/dL Unconjugated Bilirubin 0.4 (0.0-1.1) mg/dL AST 57 (17-59) U/L ALT 55 H (4-49) U/L Alkaline Phosphatase 170 H (38-126) U/L Total Protein 5.4 L (6.3-8.2) g/dL Albumin 2.2 L (3.5-5.0) g/dL Current Medications Generic Name Dose Route Start Last Admin Trade Name Freq PRN Reason Stop Dose Admin Acetaminophen 650 mg 09/03/23 13:29 09/14/23 11:55 Acetaminophen Tab 325 Mg Tab PO 650 mg Q6HR PRN Administration Mild Pain or Fever > 100.5 Alprazolam 0.5 mg 09/03/23 21:00 09/15/23 21:50 Alprazolam 0.5 Mg Tab PO 0.5 mg HS OLVIN Administration Aspirin 81 mg 09/03/23 14:15 09/16/23 09:38 Aspirin 81 Mg PO 81 mg DAILY OLVIN Administration Atorvastatin Calcium 40 mg 09/03/23 21:00 09/15/23 21:49 Atorvastatin 40 Mg Tab PO 40 mg HS OLVIN Administration Citalopram Hydrobromide 40 mg 09/04/23 21:00 09/15/23 21:49 Citalopram Hydrobromide 20 Mg Tab PO 40 mg HS OLVIN Administration Collagenase 1 applic 09/07/23 11:30 09/16/23 09:39 Collagenase 250 Unit/Gm Ointment 30 Gm Tube TOPICAL 1 applic DAILY OLVIN Administration Protocol Furosemide 40 mg 09/13/23 13:30 09/16/23 09:39 Furosemide 10 Mg/Ml 4 Ml Vial IV 40 mg DAILY OLVIN Administration Hydromorphone HCl 1 mg 09/03/23 13:29 09/16/23 06:56 Hydromorphone 1 Mg/Ml 1 Ml Syringe IVP 1 mg Q3HR PRN Administration Severe Pain (Scale 7 to 10) Ampicillin Sodium/Sulbactam 100 mls @ 200 mls/hr 09/04/23 00:00 09/16/23 17:24 Sodium 3 gm/ Sodium Chloride IVPB 200 mls/hr Q6HR OLVIN Administration Protocol Magnesium Sulfate/Dextrose 1 100 mls @ 100 mls/hr 09/16/23 18:30 gm/ IV Solution IVPB 09/16/23 20:29 Q1H OLVIN Lorazepam 2 mg 09/03/23 14:05 Lorazepam 1 Mg Tab PO Q2HR PRN Ciwa 10 or greater Metoprolol Succinate 25 mg 09/16/23 17:00 09/16/23 17:24 Metoprolol Succinate (Er) 25 Mg Tab.Er.24h PO 25 mg DAILY OLVIN Administration Mirtazapine 15 mg 09/05/23 21:00 09/15/23 21:49 Mirtazapine 15 Mg Tab PO 15 mg HS OLVIN Administration Miscellaneous Information 1 each 09/07/23 12:27 Potassium Replacement Protocol 1 Each Misc MISCELLANE DAILY PRN Per Protocol Protocol Naloxone HCl 0.2 mg 09/03/23 13:29 Naloxone 0.4 Mg/Ml 1 Ml Vial IV Q2M PRN Opioid Reversal Ondansetron HCl 4 mg 09/03/23 13:29 Ondansetron 4 Mg/2 Ml Vial IVP Q8HR PRN Nausea And Vomiting Oxycodone/Acetaminophen 1 each 09/03/23 13:29 09/16/23 12:08 Oxycodone-Apap 5-325mg 1 Each Tab PO 1 each Q4HR PRN Administration Severe Pain (Scale 7 to 10) Pantoprazole Sodium 40 mg 09/03/23 21:00 09/15/23 21:49 Pantoprazole 40 Mg Tablet PO 40 mg HS OLVIN Administration Petrolatum 1 applic 09/09/23 21:00 09/16/23 09:39 Zinc Oxide Paste (Z-Guard) 1 Applic TOPICAL Not Given BID OLVIN Protocol Rivaroxaban 2.5 mg 09/15/23 21:00 09/16/23 09:38 Rivaroxaban 2.5 Mg Tablet PO 2.5 mg BID OLVIN Administration Protocol Tamsulosin HCl 0.4 mg 09/04/23 11:15 09/16/23 09:38 Tamsulosin 0.4 Mg Cap.Er.24h PO 0.4 mg PC-BRKFST OLVIN Administration Thiamine HCl 100 mg 09/04/23 09:00 09/16/23 09:38 Thiamine 100 Mg Tab PO 100 mg DAILY OLVIN Administration Trazodone HCl 50 mg 09/05/23 14:15 09/14/23 21:54 Trazodone Hcl 50 Mg Tab PO 50 mg HS PRN Administration Insomnia Intake and Output 09/16/23 09/16/23 09/16/23 06:59 14:59 22:59 Intake Total 358 522 Output Total 1200 Balance -842 522 Intake: Oral 358 522 Output: Urine 1200 Other: Voiding Method Indwelling Catheter 09/14/23 08:32 09/16/23 08:37
[2023-09-16] MEDS: MAGNESIUM SULFATE-D5W PMX 1 GM in DEXTROSE/WATER 1 100ML.BAG IVPB SCH (18:21)
[2023-09-17 08:30] LABS: African American GFR (CKD) >90 (>60 ml/min/1.73 sqM); Anion Gap 8 mmol/L; Blood Urea Nitrogen 11 mg/dL (9-20); Calcium 7.9 mg/dL (8.4-10.2); Carbon Dioxide 23 mmol/L (22-30); Chloride 101 mmol/L (98-107); Glucose 118 mg/dL (74-99); Magnesium 1.9 mg/dL (1.6-2.3); Non-African American GFR(CKD) >90 (>60 ml/min/1.73 sqM); Potassium 3.2 mmol/L (3.5-5.1); Sodium 132 mmol/L (137-145)
--- NOTE | 2023-09-17 11:27 | CA ---
Transthoracic Echo Report Name: Star Alas Age: 58 Gender: M : 1965 Exam Date: 09/17/2023 08:27 Exam Location: [facility] Ht (in): 74 Wt (lb): 201 Ordering Physician: Ryan Sherman MD ([id number]) Attending/Referring Phys: Ophthalmic Medical Technician Deisi Huston RCS Procedure CPT: Indications: Ventricular Tachycardia Cardiac Hx: Technical Quality: Technically difficult study Contrast 1: Definity Total Dose (mL): 2 Contrast 2: Total Dose (mL): MEASUREMENTS (Male / Female) Normal Values 2D ECHO LV Diastolic Diameter PLAX 5.5 cm 4.2 - 5.9 / 3.9 - 5.3 cm LV Systolic Diameter PLAX 4.4 cm IVS Diastolic Thickness 0.7 cm 0.6 - 1.0 / 0.6 - 0.9 cm LVPW Diastolic Thickness 0.6 cm 0.6 - 1.0 / 0.6 - 0.9 cm LV Relative Wall Thickness 0.2 LVOT Diameter 2.0 cm LV Diastolic Volume MOD BP 196.7 cm??? 67 - 155 / 56 - 104 cm??? LV Systolic Volume MOD BP 98.4 cm??? 22 - 58 / 19 - 49 cm??? LV Ejection Fraction MOD BP 50.0 % >= 55 % LV Cardiac Index MOD BP 3321.4 cm???/min???m??? LV Diastolic Volume MOD 4C 194.1 cm??? LV Systolic Volume MOD 4C 89.8 cm??? LV Ejection Fraction MOD 4C 53.7 % LV Cardiac Index MOD 4C 3525.1 cm???/min???m??? LV Diastolic Length 4C 9.6 cm LV Systolic Length 4C 8.1 cm LV Diastolic Volume MOD 2C 195.8 cm??? LV Systolic Volume MOD 2C 107.8 cm??? LV Ejection Fraction MOD 2C 44.9 % LV Cardiac Index MOD 2C 2972.7 cm???/min???m??? LV Diastolic Length 2C 9.8 cm LV Systolic Length 2C 8.0 cm LA Volume 66.0 cm??? 18 - 58 / 22 - 52 cm??? LA Volume Index 30.2 cm???/m??? 16 - 28 cm???/m??? DOPPLER AV Peak Velocity 123.8 cm/s AV Peak Gradient 6.1 mmHg AV Mean Velocity 90.1 cm/s AV Mean Gradient 3.7 mmHg AV Velocity Time Integral 24.9 cm LVOT Peak Velocity 106.4 cm/s LVOT Peak Gradient 4.5 mmHg LVOT Velocity Time Integral 19.9 cm LVOT Stroke Volume 63.6 cm??? LVOT Stroke Volume Index 29.2 ml/m??? LVOT Cardiac Index 2150.2 cm???/min???m??? AV Area Cont Eq vti 2.6 cm??? AV Area Cont Eq pk 2.8 cm??? Mitral E Point Velocity 71.4 cm/s Mitral A Point Velocity 45.4 cm/s Mitral E to A Ratio 1.6 MV Deceleration Time 217.0 ms MV E' Velocity 11.4 cm/s Mitral E to MV E' Ratio 6.3 PV Peak Velocity 95.5 cm/s PV Peak Gradient 3.7 mmHg FINDINGS Left Ventricle Left ventricular ejection fraction is estimated at 45%. Moderately increased left ventricular diastolic volume. Severely increased left ventricular systolic volume. Mildly decreased left ventricular ejection fraction. No obvious regional wall motion abnormalities. Right Ventricle Normal right ventricular size and function. Unable to determine right ventricular systolic function. Right Atrium Normal right atrial size. Left Atrium Mildly increased left atrial volume. Mildly increased left atrial area. Mitral Valve Structurally normal mitral valve. No evidence for mitral valve prolapse. No mitral stenosis. Trace mitral regurgitation. Aortic Valve Trileaflet aortic valve. No aortic stenosis. No aortic regurgitation. Tricuspid Valve Structurally normal tricuspid valve. No tricuspid stenosis. Trace tricuspid regurgitation. Pulmonic Valve Pulmonic valve not well visualized. No pulmonic stenosis. No pulmonic regurgitation. Pericardium No pericardial effusion. Aorta Aortic annulus normal. Ascending aorta not well visualized. CONCLUSIONS Technically difficult study. Contrast was used Mildly impaired LV function with EF at 45% No significant valvular abnormalities noted No pericardial effusion Previewed by: Dr. Jorge Lehman MD (Electronically Signed) Final Date: 17 September 2023 11:26
--- NOTE | 2023-09-17 11:29 | P.PN ---
Subjective Progress Note Date: 09/17/23 Principal diagnosis: Chronic wound, peripheral arterial disease Patient is seen and examined today as a follow-up. He is postop day #2 for left femoral to below the knee popliteal bypass. He states he is having increased pain to his foot. He also underwent debridement. States he has been up and walking in his room. Denies any shortness of breath, chest pain, abdominal akri n, nausea or vomiting. He has been afebrile. Left lower extremity warm to the touch. Objective - Vital Signs Vital signs: Vital Signs Temp 98.6 F 09/17/23 04:00 Pulse 86 09/17/23 04:00 Resp 18 09/17/23 04:00 BP 130/73 09/17/23 04:00 Pulse Ox 92 L 09/17/23 04:00 FiO2 Intake & Output 09/16/23 09/17/23 09/17/23 18:59 06:59 18:59 Intake Total 1420 20 Output Total 1200 600 Balance 220 -580 Weight 92.5 kg Intake: IV 20 Invasive Line 7 10 Invasive Line 8 10 Oral 1420 Output: Urine 1200 600 Other: Voiding Method Indwelling Catheter Urinal # Voids 1 - Exam General appearance: The patient is alert, oriented, appears in no acute distress. HET: Head is normocephalic and atraumatic. Neck: Supple. Extremities: Left lower extremity groin incision with serosanguineous drainage, left medial thigh dressing clean dry and intact, left medial lower and extremity incision well-approximated. Palpable bypass. Multiphasic PT signal present. Left foot with multiple areas of ischemic changes to the dorsal aspect as well and has healed. Neurological: No focal deficits. - Labs CBC & Chem 7: 09/14/23 08:32 09/17/23 07:41 Labs: Abnormal Lab Results - Last 24 Hours (Table) 09/17/23 Range/Units 07:41 Sodium 132 L (137-145) mmol/L Potassium 3.2 L (3.5-5.1) mmol/L Creatinine 0.60 L (0.66-1.25) mg/dL Glucose 118 H (74-99) mg/dL Calcium 7.9 L (8.4-10.2) mg/dL Assessment and Plan Assessment: 1. 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 Annamaria 6 peripheral arterial disease 3. Chronic left foot/lower extremity wound status post debridement 4. Cellulitis 5. History of peripheral arterial disease with previous right lower extremity stenting and femoropopliteal bypass 6. Suicidal ideations on suicide watch Plan: 1. Continue local wound care as recommended by wound clinic 2. Continue with recommendations from infectious disease 3. Consult to physical therapy 4. Patient will need continued outpatient wound care with the [facility] wound clinic 5. Rest of medical management per primary medical team Thank you for this consultation. Patient is cleared from vascular surgery for discharge. The impression and plan of care has been dictated as directed. Dr. Stearns I performed a history and examination of this patient, discussed the same with the dictator. I agree with the dictator's note ,documented as a scribe. Any additional findings or plans will be noted. Palpable pulse and graft. Foot wound is evaluated, await further demarcation. Continue local wound care. Likely will need further debridement versus amputation pending the amount of tissue loss. Discussed with the patient and his mother seems understand.
--- NOTE | 2023-09-17 11:56 | P.PN ---
Subjective Patient is seen in follow-up for hyponatremia. Sodium level 132 today. Oral intake good. Drinking quite a bit of fluids. No vomiting or diarrhea. Good urine output. On IV Lasix. Vital signs are stable. General: No acute distress. HEENT: Head exam is unremarkable. LUNGS: No audible rhonchi or wheezes. HEART: Rate and Rhythm are regular. ABDOMEN: Nontender. EXTREMITITES: 1+ edema. No drainage noted. Dark discoloration of lower extremity noted. Objective - Vital Signs Vital signs: Vital Signs Temp 98.0 F 09/17/23 08:20 Pulse 77 09/17/23 08:20 Resp 17 09/17/23 08:20 BP 82/51 09/17/23 08:20 Pulse Ox 98 09/17/23 08:20 FiO2 Intake & Output 09/16/23 09/17/23 09/17/23 18:59 06:59 18:59 Intake Total 1420 20 Output Total 1200 600 Balance 220 -580 Weight 92.5 kg Intake: IV 20 Invasive Line 7 10 Invasive Line 8 10 Oral 1420 Output: Urine 1200 600 Other: Voiding Method Indwelling Catheter Urinal # Voids 1 - Labs CBC & Chem 7: 09/14/23 08:32 09/17/23 07:41 Labs: Abnormal Lab Results - Last 24 Hours (Table) 09/17/23 Range/Units 07:41 Sodium 132 L (137-145) mmol/L Potassium 3.2 L (3.5-5.1) mmol/L Creatinine 0.60 L (0.66-1.25) mg/dL Glucose 118 H (74-99) mg/dL Calcium 7.9 L (8.4-10.2) mg/dL Assessment and Plan Plan: Assessment: 1. Hyponatremia from poor solute intake and excessive fluid intake. Now hypervolemic on Lasix. Urine sodium less than 20 and urine osmolality 312. Improved with IV hydration. TSH normal. Sodium level 132 today. 2. Left foot wound on antibiotics. Culture positive for Proteus. Infectious disease and vascular surgery following. Status post debridement September 04, 2023. 3. Peripheral arterial disease with prior stenting. Underwent left common femoral artery endarterectomy with patch angioplasty, left femoral to below-knee popliteal artery bypass September 15, 2023. 4. Urinary retention status post Stearns catheter placement - Stearns catheter had been removed but was placed again yesterday for surgery.. On Flomax. 5. Hypokalemia from diuresis. Plan: Encouraged oral intake. Maintain 1500 cc fluid restriction - stressed compliance. Patient was not adhering. Maintain IV Lasix. Replace potassium. Repeat labs in the morning. Stearns catheter removed.
[2023-09-17] MEDS: POTASSIUM CHLORIDE ER 20 MEQ TAB.ER PO STA (12:29)
[2023-09-17 14:41] VITALS: BMI 26.2
--- NOTE | 2023-09-17 15:05 | P.PN ---
Subjective Progress Note Date: 09/17/23 HISTORY OF PRESENTING ILLNESS 87-year-old male with PMH of prior GI bleeding, PAD s/p right SFA profunda embolectomy and bypass surgery. Recently underwent left femoropopliteal bypass. He also has history of COPD, alcohol abuse, depression. Patient has had a prolonged hospital stay. He was admitted on 09/03/2023. He underwent left femoral endarterectomy with patch angioplasty, left femoral to distal popliteal in situ saphenous vein bypass, left lower extremity angiogram and balloon angioplasty of saphenous vein bypass and debridement of foot. He is also dealing with chronic nonhealing left lower extremity wound and cellulitis. Today around 7 AM it was noticed that patient had a short run of nonsustained ventricular tachycardia during which patient was asymptomatic. His potassium was 3.6. Which has been replaced. His magnesium was 1.6 which has not been replaced. I will give him 2 g of IV mag sulfate. 09/16 Patient denies having any chest pain or shortness of breath. He states he may have felt a little dizzy this morning. Blood pressure 82/51, heart rate 77, pulse ox 98% on room air. Sodium 132, potassium 3.2, creatinine 0.6. Potassium has been replaced by nephrology. Patient is currently on Lasix 40 mg IV daily per nephrology. Echocardiogram reveals EF of 45%. No significant valvular abnormalities. PHYSICAL EXAMINATION Vital signs reviewed. Head: Normocephalic. Eyes: Sclerae nonicteric. Neck: Brisk carotid upstroke, no jugular venous distention. Lungs: Clear to auscultation. Heart: Regular rate and rhythm, S1-S2, no S3, no murmur or rub. Abdomen: Soft nontender, positive bowel sounds. Extremities: 1+ edema, intact distal pulses. Dark skin changes noted to the lower extremities Neuro: Alert, oritented, no focal deficits. Detailed neuro exam was not performe d. ASSESSMENT nonsustained ventricular tachycardia, asymptomatic. Severe PAD s/p femoral endarterectomy with patch angioplasty, left femoral to distal popliteal in situ saphenous vein bypass, left lower extremity angiogram and balloon angioplasty of saphenous vein bypass and debridement of foot Suicidal ideation and depression PLAN Continue patient on Metoprolol succinate 25 mg daily Agree with aspirin, atorvastatin, Xarelto 2.5 mg twice daily Diuretics per nephrology Nurse practitioner note has been reviewed, I agree with documented findings and plan of care. Patient was seen and examined. Objective - Vital Signs Vital signs: Vital Signs Temp 98.0 F 09/17/23 08:20 Pulse 77 09/17/23 08:20 Resp 17 09/17/23 08:20 BP 82/51 09/17/23 08:20 Pulse Ox 98 09/17/23 08:20 FiO2 Intake & Output 09/16/23 09/17/23 09/17/23 18:59 06:59 18:59 Intake Total 1420 20 Output Total 1200 600 Balance 220 -580 Weight 92.5 kg Intake: IV 20 Invasive Line 7 10 Invasive Line 8 10 Oral 1420 Output: Urine 1200 600 Other: Voiding Method Indwelling Catheter Urinal # Voids 1 - Labs CBC & Chem 7: 09/14/23 08:32 09/17/23 07:41 Labs: Abnormal Lab Results - Last 24 Hours (Table) 09/17/23 Range/Units 07:41 Sodium 132 L (137-145) mmol/L Potassium 3.2 L (3.5-5.1) mmol/L Creatinine 0.60 L (0.66-1.25) mg/dL Glucose 118 H (74-99) mg/dL Calcium 7.9 L (8.4-10.2) mg/dL
[2023-09-18 09:59] LABS: Basophils # (A) 0.1 k/uL (0-0.2); Basophils % (A) 1 %; Eosinophils # (A) 0.2 k/uL (0-0.7); Eosinophils % (A) 2 %; HCT 25.3 % (39.0-53.0); Lymphocytes # (A) 0.8 k/uL (1.0-4.8); Lymphocytes % (A) 8 %; MCH 28.6 pg (25.0-35.0); MCHC 32.8 g/dL (31.0-37.0); MCV 87.2 fL (80.0-100.0); Mean Platelet Volume 8.2; Monocytes # (A) 0.7 k/uL (0-1.0); Monocytes % (A) 7 %; Neutrophils # (A) 7.9 k/uL (1.3-7.7); Neutrophils % (A) 81 %; Platelet Count 429 k/uL (150-450); RDW 13.3 % (11.5-15.5); WBC 9.8 k/uL (3.8-10.6)
[2023-09-18 10:03] LABS: HGB 8.3 gm/dL (13.0-17.5)
[2023-09-18 10:08] LABS: African American GFR (CKD) >90 (>60 ml/min/1.73 sqM); Anion Gap 4 mmol/L; Blood Urea Nitrogen 12 mg/dL (9-20); Calcium 7.4 mg/dL (8.4-10.2); Carbon Dioxide 26 mmol/L (22-30); Chloride 104 mmol/L (98-107); Glucose 89 mg/dL (74-99); Magnesium 1.8 mg/dL (1.6-2.3); Non-African American GFR(CKD) >90 (>60 ml/min/1.73 sqM); Potassium 3.4 mmol/L (3.5-5.1); Sodium 134 mmol/L (137-145)
--- NOTE | 2023-09-18 11:47 | P.PN ---
Subjective Patient is seen in follow-up for hyponatremia. Sodium level 134 today. Oral intake good. No vomiting or diarrhea. Good urine output. On IV Lasix. Vital signs are stable. General: No acute distress. HEENT: Head exam is unremarkable. LUNGS: No audible rhonchi or wheezes. HEART: Rate and Rhythm are regular. ABDOMEN: Nontender. EXTREMITITES: 1+ edema. No drainage noted. Objective - Vital Signs Vital signs: Vital Signs Temp 98.2 F 09/18/23 08:00 Pulse 79 09/18/23 08:00 Resp 18 09/18/23 08:00 BP 97/59 09/18/23 08:00 Pulse Ox 98 09/18/23 08:00 FiO2 Intake & Output 09/17/23 09/18/23 09/18/23 18:59 06:59 18:59 Intake Total 480 118 Output Total 1100 2000 950 Balance -620 -2000 -832 Weight 92.5 kg 93.2 kg Intake: Oral 480 118 Output: Urine 1100 2000 950 Other: Voiding Method Urinal Urinal # Voids 1 - Labs CBC & Chem 7: 09/18/23 09:35 09/18/23 09:35 Labs: Abnormal Lab Results - Last 24 Hours (Table) 09/18/23 09/18/23 Range/Units 09:35 09:35 RBC 2.90 L (4.30-5.90) m/uL Hgb 8.3 L D (13.0-17.5) gm/dL Hct 25.3 L (39.0-53.0) % Neutrophils # 7.9 H (1.3-7.7) k/uL Lymphocytes # 0.8 L (1.0-4.8) k/uL Sodium 134 L (137-145) mmol/L Potassium 3.4 L (3.5-5.1) mmol/L Calcium 7.4 L (8.4-10.2) mg/dL Assessment and Plan Plan: Assessment: 1. Hyponatremia from poor solute intake and excessive fluid intake. Now hyper volemic on Lasix. Urine sodium less than 20 and urine osmolality 312. TSH normal. Sodium level 134 today. 2. Left foot wound on antibiotics. Culture positive for Proteus. Infectious disease and vascular surgery following. Status post debridement September 04, 2023. 3. Peripheral arterial disease with prior stenting. Underwent left common femoral artery endarterectomy with patch angioplasty, left femoral to below-knee popliteal artery bypass September 15, 2023. 4. Urinary retention status post Stearns catheter placement - Stearns catheter had been removed but was placed again yesterday for surgery.. On Flomax. 5. Hypokalemia from diuresis. Plan: Encouraged oral intake. Maintain 1500 cc fluid restriction - stressed compliance. Maintain IV Lasix. Will give additional dose this evening. Potassium replaced. Repeat labs in the morning.
--- NOTE | 2023-09-18 12:40 | P.PN ---
Subjective Progress Note Date: 09/18/23 HISTORY OF PRESENTING ILLNESS 87-year-old male with PMH of prior GI bleeding, PAD s/p right SFA profunda embolectomy and bypass surgery. Recently underwent left femoropopliteal bypass. He also has history of COPD, alcohol abuse, depression. Patient has had a prolonged hospital stay. He was admitted on 09/03/2023. He underwent left femoral endarterectomy with patch angioplasty, left femoral to distal popliteal in situ saphenous vein bypass, left lower extremity angiogram and balloon angioplasty of saphenous vein bypass and debridement of foot. He is also dealing with chronic nonhealing left lower extremity wound and cellulitis. Today around 7 AM it was noticed that patient had a short run of nonsustained ventricular tachycardia during which patient was asymptomatic. His potassium was 3.6. Which has been replaced. His magnesium was 1.6 which has not been replaced. I will give him 2 g of IV mag sulfate. 09/16 Patient denies having any chest pain or shortness of breath. He states he may have felt a little dizzy this morning. Blood pressure 82/51, heart rate 77, pulse ox 98% on room air. Sodium 132, potassium 3.2, creatinine 0.6. Potassium has been replaced by nephrology. Patient is currently on Lasix 40 mg IV daily per nephrology. Echocardiogram reveals EF of 45%. No significant valvular abnormalities. 09/17 Noted patient had a drop in his hemoglobin 8.3. Other lab work revealed sodium 134, potassium 3.4 will be replaced. Creatinine 0.67. Blood pressure 97/59, heart rate in the 70s, pulse ox 98% on room air. Patient states he has had no issues overnight. No chest pain or shortness of breath. Lower extremity edema in the left leg is improving. He states pain to the left foot is controlled. PHYSICAL EXAMINATION Vital signs reviewed. Head: Normocephalic. Eyes: Sclerae nonicteric. Neck: Brisk carotid upstroke, no jugular venous distention. Lungs: Clear to auscultation. Heart: Regular rate and rhythm, S1-S2, no S3, no murmur or rub. Abdomen: Soft nontender, positive bowel sounds. Extremities: 1+ edema, intact distal pulses. Dark skin changes noted to the lower extremities Neuro: Alert, oritented, no focal deficits. Detailed neuro exam was not perform ed. ASSESSMENT nonsustained ventricular tachycardia, asymptomatic. Severe PAD s/p femoral endarterectomy with patch angioplasty, left femoral to distal popliteal in situ saphenous vein bypass, left lower extremity angiogram and balloon angioplasty of saphenous vein bypass and debridement of foot Suicidal ideation and depression PLAN Continue patient on Metoprolol succinate 25 mg daily Agree with aspirin, atorvastatin, Xarelto 2.5 mg twice daily Diuretics per nephrology Cardiology will sign off this case and follow on an as-needed basis. Please reconsult for any new concerns. Patient may follow-up in the office in one to 2 weeks. Nurse practitioner note has been reviewed, I agree with documented findings and plan of care. Patient was seen and examined. Objective - Vital Signs Vital signs: Vital Signs Temp 98.2 F 09/18/23 08:00 Pulse 79 09/18/23 08:00 Resp 18 09/18/23 08:00 BP 97/59 09/18/23 08:00 Pulse Ox 98 09/18/23 08:00 FiO2 Intake & Output 09/17/23 09/18/23 09/18/23 18:59 06:59 18:59 Intake Total 480 118 Output Total 1100 2000 950 Balance -620 -2000 -832 Weight 92.5 kg 93.2 kg Intake: Oral 480 118 Output: Urine 1100 2000 950 Other: Voiding Method Urinal Urinal # Voids 1 - Labs CBC & Chem 7: 09/18/23 09:35 09/18/23 09:35 Labs: Abnormal Lab Results - Last 24 Hours (Table) 09/18/23 09/18/23 Range/Units 09:35 09:35 RBC 2.90 L (4.30-5.90) m/uL Hgb 8.3 L D (13.0-17.5) gm/dL Hct 25.3 L (39.0-53.0) % Neutrophils # 7.9 H (1.3-7.7) k/uL Lymphocytes # 0.8 L (1.0-4.8) k/uL Sodium 134 L (137-145) mmol/L Potassium 3.4 L (3.5-5.1) mmol/L Calcium 7.4 L (8.4-10.2) mg/dL
--- NOTE | 2023-09-18 12:50 | P.PN ---
Subjective Progress Note Date: 09/17/23 Principal diagnosis: Left foot wound and cellulitis Patient is a 57-year-old male with a past medical history significant for COPD PAD in this patient who did have a previous history of right femoropopliteal bypass at [facility] anxiety depression current ever yday smoker presented to the hospital worsening discoloration and wound to the left foot that has been there for couple of months. Patient is status post excisional debridement of the left foot completed by vascular surgery operative report mention no evidence of osteomyelitis.Patient is status post left common femoral artery endarterectomy with patch angioplasty, Left femoral to below knee popliteal artery bypass with InSitu greater saphenous graft, Selective left lower extremity angiogram and Left femoral-popliteal bypass balloon angioplasty, procedure completed on 09/15/2023. On today's visit that is 09/17/2023,the patient remains to be afebrile, patient is on room air not requiring supplemental oxygen and denies any shortness of breath no chest pain or cough.Patient denies having any nausea or vomiting, no abdominal pain and no diarrhea has been reported, still complaining of pain to t he left lower extremity no worsening though Patient did have a creatinine 0.60 no CBC was done today Objective - Vital Signs Vital signs: Vital Signs Temp 98.0 F 09/17/23 08:20 Pulse 77 09/17/23 08:20 Resp 17 09/17/23 08:20 BP 82/51 09/17/23 08:20 Pulse Ox 98 09/17/23 08:20 FiO2 Intake & Output 09/16/23 09/17/23 09/17/23 18:59 06:59 18:59 Intake Total 1420 20 Output Total 1200 600 Balance 220 -580 Weight 92.5 kg Intake: IV 20 Invasive Line 7 10 Invasive Line 8 10 Oral 1420 Output: Urine 1200 600 Other: Voiding Method Indwelling Catheter Urinal # Voids 1 - Exam GENERAL DESCRIPTION: Middle-age male lying in bed in no distress RESPIRATORY SYSTEM: Unlabored breathing , decreased breath sounds at bases HEART: S1 S2 regular rate and rhythm , ABDOMEN: Soft , no tenderness EXTREMITIES: Left foot currently dressed, review of the picture taken by the nursing staff did have some clear however still have some necrotic skin - Labs CBC & Chem 7: 09/18/23 09:35 09/18/23 09:35 Labs: Abnormal Lab Results - Last 24 Hours (Table) 09/17/23 Range/Units 07:41 Sodium 132 L (137-145) mmol/L Potassium 3.2 L (3.5-5.1) mmol/L Creatinine 0.60 L (0.66-1.25) mg/dL Glucose 118 H (74-99) mg/dL Calcium 7.9 L (8.4-10.2) mg/dL Assessment and Plan (1) Cellulitis of left foot Current Visit: Yes Status: Acute Code(s): L03.116 - CELLULITIS OF LEFT LOWER LIMB SNOMED Code(s): 13666788918921262 (2) Infected wound Current Visit: Yes Status: Acute Code(s): T14.8XXA - OTHER INJURY OF UNSPECIFIED BODY REGION, INITIAL ENCOUNTER; L08.9 - LOCAL INFECTION OF THE SKIN AND SUBCUTANEOUS TISSUE, UNSP SNOMED Code(s): 84290717 Plan: 1-1patient presented to hospital with extensive infection/wound to the left foot area likely component of ischemia with secondary cellulitis, patient is status post surgical debridement and deep culture, operative report did not mention any extension of the wound 2-patient cultures grew Proteus sensitive to Unasyn but resistant/intermediate to Rocephin, anaerobe culture have been negative 3--patient is status post left femoral-popliteal bypass completed on 09/15/2023 4- patient to continue with Unasyn for underlying infection and monitor clinical course closely Dictation was produced using [employer] dictation software. please excuse any grammatical, word or spelling errors. Time with Patient: Less than 30
--- NOTE | 2023-09-18 12:51 | P.PN ---
Subjective Progress Note Date: 09/18/23 Principal diagnosis: Left foot wound and cellulitis Patient is a 57-year-old male with a past medical history significant for COPD PAD in this patient who did have a previous history of right femoropoplite[facility] at [facility] anxiety depression current ever yday smoker presented to the hospital worsening discoloration and wound to the left foot that has been there for couple of months. Patient is status post excisional debridement of the left foot completed by vascular surgery operative report mention no evidence of osteomyelitis.Patient is status post left common femoral artery endarterectomy with patch angioplasty, Left femoral to below knee popliteal artery bypass with InSitu greater saphenous graft, Selective left lower extremity angiogram and Left femoral-popliteal bypass balloon angioplasty, procedure completed on 09/15/2023. On today's visit that is 09/18/2023, the patient continues to be afebrile, the patient is on room air and breathing comfortably, the Pt denies having any chest pain or cough, the patient denies having any abdominal pain no vomiting or any diarrhea has been reported by the nursing staff, pain to the left lower extre mity has slightly decreased in intensity Patient white count normal at 9.8, creatinine 0.67 Objective - Vital Signs Vital signs: Vital Signs Temp 98.2 F 09/18/23 08:00 Pulse 79 09/18/23 08:00 Resp 18 09/18/23 08:00 BP 97/59 09/18/23 08:00 Pulse Ox 98 09/18/23 08:00 FiO2 Intake & Output 09/17/23 09/18/23 09/18/23 18:59 06:59 18:59 Intake Total 480 118 Output Total 1100 1999 950 Balance -620 -2000 -832 Weight 92.5 kg 93.2 kg Intake: Oral 480 118 Output: Urine 1100 1999 950 Other: Voiding Method Urinal Urinal # Voids 1 - Exam GENERAL DESCRIPTION: Middle-age male lying in bed in no distress RESPIRATORY SYSTEM: Unlabored breathing , decreased breath sounds at bases HEART: S1 S2 regular rate and rhythm , ABDOMEN: Soft , no tenderness EXTREMITIES: Left foot currently dressed, review of the picture taken by the nursing staff did have some clear however still have some necrotic skin - Labs CBC & Chem 7: 09/18/23 09:35 09/18/23 09:35 Labs: Abnormal Lab Results - Last 24 Hours (Table) 09/18/23 09/18/23 Range/Units 09:35 09:35 RBC 2.90 L (4.30-5.90) m/uL Hgb 8.3 L D (13.0-17.5) gm/dL Hct 25.3 L (39.0-53.0) % Neutrophils # 7.9 H (1.3-7.7) k/uL Lymphocytes # 0.8 L (1.0-4.8) k/uL Sodium 134 L (137-145) mmol/L Potassium 3.4 L (3.5-5.1) mmol/L Calcium 7.4 L (8.4-10.2) mg/dL Assessment and Plan (1) Cellulitis of left foot Current Visit: Yes Status: Acute Code(s): L03.116 - CELLULITIS OF LEFT LOWER LIMB SNOMED Code(s): 34648722938524529 (2) Infected wound Current Visit: Yes Status: Acute Code(s): T14.8XXA - OTHER INJURY OF UNSPECIFIED BODY REGION, INITIAL ENCOUNTER; L08.9 - LOCAL INFECTION OF THE SKIN AND SUBCUTANEOUS TISSUE, UNSP SNOMED Code(s): 26138542 Plan: 1-1patient presented to hospital with extensive infection/wound to the left foot area likely component of ischemia with secondary cellulitis, patient is status post surgical debridement and deep culture, operative report did not mention any extension of the wound 2-patient cultures grew Proteus sensitive to Unasyn but resistant/intermediate to Rocephin, anaerobe culture have been negative 3--patient is status post left femoral-popliteal bypass completed on 09/15/2023 4- patient is afebrile patient white count is normal, patient to continue with Unasyn for few weeks because of his extensive infection and continue supportive care Dictation was produced using [employer] dictation software. please excuse any grammatical, word or spelling errors. Time with Patient: Less than 30
--- NOTE | 2023-09-18 13:09 | P.PN ---
Subjective Progress Note Date: 09/18/23 Principal diagnosis: Chronic wound, peripheral arterial disease Patient seen and examined today as a follow-up. He continues to have increased swelling in the left lower extremity. He states pain has improved. No acute changes through the night. He did have a drop in his hemoglobin from 10.6-8.3. No signs of bleeding. Objective - Vital Signs Vital signs: Vital Signs Temp 98.2 F 09/18/23 08:00 Pulse 79 09/18/23 08:00 Resp 18 09/18/23 08:00 BP 97/59 09/18/23 08:00 Pulse Ox 98 09/18/23 08:00 FiO2 Intake & Output 09/17/23 09/18/23 09/18/23 18:59 06:59 18:59 Intake Total 480 118 Output Total 1100 2000 950 Balance -620 -2000 -832 Weight 92.5 kg 93.2 kg Intake: Oral 480 118 Output: Urine 1100 2000 950 Other: Voiding Method Urinal Urinal # Voids 1 - Exam General appearance: The patient is alert, oriented, appears in no acute distress. HET: Head is normocephalic and atraumatic. Neck: Supple. Extremities: Left lower extremity swelling. Left lower extremity groin incision with serosanguineous drainage, left medial thigh dressing clean dry and intact, left medial lower and extremity incision well-approximated. Palpable bypass. Multiphasic PT signal present. Left foot with multiple areas of ischemic changes to the dorsal aspect as well and has healed. Neurological: No focal deficits. - Labs CBC & Chem 7: 09/18/23 09:35 09/18/23 09:35 Labs: Abnormal Lab Results - Last 24 Hours (Table) 09/18/23 09/18/23 Range/Units 09:35 09:35 RBC 2.90 L (4.30-5.90) m/uL Hgb 8.3 L D (13.0-17.5) gm/dL Hct 25.3 L (39.0-53.0) % Neutrophils # 7.9 H (1.3-7.7) k/uL Lymphocytes # 0.8 L (1.0-4.8) k/uL Sodium 134 L (137-145) mmol/L Potassium 3.4 L (3.5-5.1) mmol/L Calcium 7.4 L (8.4-10.2) mg/dL Assessment and Plan Assessment: 1. 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 [place] 6 peripheral arterial disease 3. Chronic left foot/lower extremity wound status post debridement 4. Cellulitis 5. History of peripheral arterial disease with previous right lower extremity stenting and femoropopliteal bypass 6. Suicidal ideations on suicide watch Plan: 1. Continue local wound care as recommended by wound clinic 2. Continue with recommendations from infectious disease 3. Consult to physical therapy 4. Patient will need continued outpatient wound care with the [facility] wound cli [place] 5. Rest of medical management per primary medical team 6. Elevate left lower extremity 7. Repeat CBC tomorrow Thank you for this consultation. The impression and plan of care has been dictated as directed. Dr. Payne I performed a history and examination of this patient, discussed the same with the dictator. I agree with the dictator's note ,documented as a scribe. Any additional findings or plans will be noted.
[2023-09-18] MEDS: POTASSIUM CHLORIDE ER 20 MEQ TAB.ER PO STA (14:04)
[2023-09-18] MEDS: FUROSEMIDE 10 MG/ML 2 ML VIAL IV ONE (16:48)
[2023-09-18] MEDS ORDERED: Magnesium Replacement Protocol 1 EACH MISC MISCELLANE PRN (22:27)
--- NOTE | 2023-09-18 22:58 | P.PN ---
Subjective Progress Note Date: 09/17/23 57-year-old gentleman with past medical history significant for duodenal ulcer, history of gastrointestinal bleed, peripheral arterial disease history of s/p right femoral endarterectomy, right SFA and profunda embolectomy 2016, history of colon diverticulosis, history of COPD, alcohol use, history of de pression presents to the emergency department with complaints of wound noted on his foot for approximately 8 months. Patient said he has been using topical antibiotic however recently patient has noted that the wound was getting worse. Patient states that for approximately 1 week he has not removed his socks and decided to come to the emergency since patient was unable to walk. Patient does endorse that he has history of arterial disease however denies history of diabetes. Workup initiated in ER included CBC which showed WBC of 10.7 hemoglobin 12.6 platelet count of 329 Chemistry obtained in ER showed sodium of 119, potassium 4.2, dioxide 21 BUN 10 creatinine 0.53 X-ray obtained in ER showed soft tissue wound lateral to the fifth metatarsal head.. Further evaluation ordered including CT foot Patient started on IV Zosyn and vancomycin admitted to medical floor 09/04/23: patient seen and evaluated at bedside, CT angiogram lower extremity reviewed bilateral moderate to severe occlusive disease noted. , vascular surgery consulted. Patient started on aspirin and Lipitor. Appreciate input from Infectious Disease continue patient on IV antibiotic continue with wound care. Patient going for wound debridement made n.p.o. patient made suicidal ideation, continue one-to-one sitter will consult psychiatry 09/05/2023 This is a pleasant 57 years old male who presents on 09/03 for left foot infection on the wound which was been going on for 8 months, recently getting worse. He is status post excision and debridement and 09/04. Today postop day #1. His left foot in a dressing and pain was controlled. 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 When asked the patient he told me he has depression but he denies suicidal ideation or homicidal ideation currently. No evidence of active delirium tremens or alcohol withdrawal symptoms His wound culture is growing sensitive for Proteus and the vancomycin was discontinued Discussed with staff 09/06/2023 Patient transferred to [address] [place] [address] after the angiogram done yesterday by vascular surgery team showing significant peripheral vascular disease involvement the l eft lower extremity including the iliac arteries and tibia arteries as well. Patient remains on Unasyn and wound culture, Proteus, repeat wound culture growing gram-negative bacilli which is pending for now Patients sodium 128 and he has evidence of bilateral leg swelling. Is status post Lasix 20 mg 1 today 09/07/2023 Patient is awake and alert, no pain no distress, no new complaints No chest pain or dyspnea His left foot wound with a dressing in place. No significant pain Patient is planned to go for OR today for revascularization and direct hysterectomy and possible bypass procedure with vascular surgery team Patient low potassium and magnesium been replaced per protocol He is on Unasyn. Local withdrawal 09/08/2023 Patient awake and alert He is supposed to get surgery for his peripheral vascular disease of the left lower extremity including endarterectomy and bypass procedure however it was held and vascular surgery are considering doing it as an outpatient. In the meantime he remains being treated with IV Unasyn for his left foot wound and infection, PICC line was placed for IV antibiotics Unasyn upon discharge per recommendation of ID team Patient required ECF upon discharge, prior authorization is still pending He is on multiple pain regimen 09/09/2039 Patient still being treated for his left foot infection and wound. He has evidence of peripheral vascular disease, initially vascular surgery team are planning to do revascularization procedure for his left lower extremity however currently this is was postponed until outpatient basis. Patient informed and he agreed He continues to improve with IV antibiotic, currently he is on IV Unasyn and plan for him to be discharged on IV antibiotic. PICC line is in place Patient also wants to be DNR 09/11/2023 Patient discharged yesterday was held for placement I discussed the case with briefcase sewer today, his insurance has lapsed and now his with no insurance and adoption social worker on the case for his discharge planning Clinically patient looks the same, no new complaint. Will check bladder scan that was less than 10. Patient does not need Stearns catheter Patient is aware with the discharge plan and is agreeable Will discharge patient to rehab once authorization is obtained 09/12/2023 Patient clinically looks the same. He has slightly worsening labs Patient has no insurance to go to rehab, patient is scheduled for surgery this coming Thursday 09/14. Continue with antibiotic patient awake alert, no new complaint No chest pain or dyspnea Patient planned to undergo vascular surgery of his left leg/ankle on this coming Sunday09/14/2023 Patient is awake and alert looks comfortable in bed No chest pain no dyspnea Is able get up from bed His left lower extremity cellulitis looks improvement with less warmth and tenderness and swelling. Remains on broad-spectrum antibiotics Patient planned for left femoral endarterectomy and left femoral-tibial bypass procedure and possible debridement 09/15/2023 Patient In bed comfortable. No chest pain or dyspnea. No other complaints. Vitals and labs reviewed. He has mild increased liver enzymes. We will check it tomorrow. However patient denies any right upper quadrant pain or tenderness hi Patient planned for left femoral endarterectomy and left femoral-tibial bypass procedure and possible debridement today 09/16/2023 Patient s/p Left common femoral artery endarterectomy with patch angioplasty andLeft femoral to below knee popliteal artery bypass with InSitu greater saphenous graft, patient is postop day #1 He denies chest pain or dyspnea he is awake and calm Overnight he pulled his wound VAC from his left leg. Vascular surgery had to come and clean the area and put the dressing back in. Pain is minimal this morning. No chest pain dyspnea. No other new complaints His liver enzymes are improving. Rest of labs and vitals look stable Remains on Unasyn. Also he is on Xarelto 2.5 mg started by surgery team 09/17/2023 Patient is lying in the bed. Awake alert and orient x 3. Patient is complaining of left lower extremity pain this morning. Also complains of dizziness getting up. Blood pressure was low this morning with SBP upper 80s. No complaints of chest pain or shortness of breath. No nausea vomiting abdominal pain or diarrhea. Currently on room air. Lab data showed sodium 132 potassium 3.3 chloride 101 bicarb is 23 BUN 11 creatinine 0.63 blood sugar 118 and calcium 7.9 and magnesium 1.9. Patient is being currently on Lasix 40 mg IV. daily Also on antibiotics in the form of Unasyn. Anticoagulation with Xarelto 2.5 mg p.o. twice daily. Vascular surgery, ID and cardiology and nephrology is on board. Current medications reviewed. Objective - Vital Signs Vital signs: Vital Signs Temp 98.6 F 09/17/23 04:00 Pulse 86 09/17/23 04:00 Resp 18 09/17/23 04:00 BP 130/73 09/17/23 04:00 Pulse Ox 92 L 09/17/23 04:00 FiO2 Intake & Output 09/16/23 09/17/23 09/17/23 18:59 06:59 18:59 Intake Total 1420 20 Output Total 1200 600 Balance 220 -580 Weight 92.5 kg Intake: IV 20 Invasive Line 7 10 Invasive Line 8 10 Oral 1420 Output: Urine 1200 600 Other: Voiding Method Indwelling Catheter Urinal # Voids 1 - Exam GENERAL: The patient is alert and oriented x3, not in any acute distress. Well developed, well nourished. HEENT: Pupils are round and equally reacting to light. EOMI. No scleral icterus. No conjunctival pallor. Normocephalic, atraumatic. No pharyngeal erythema. No thyromegaly. CARDIOVASCULAR: S1 and S2 present. No murmurs, rubs, or gallops. PULMONARY: Chest is clear to auscultation, no wheezing , no crackles. ABDOMEN: Soft, nontender, nondistended, normoactive bowel sounds. No palpable organomegaly. MUSCULOSKELETAL: No joint swelling or deformity. -EXTREMITIES: No cyanosis, clubbing, or pedal edema. Left foot surgical wound with dressing in Place. Rest of exam is deferred to surgery team. Your surgical wounds with dressing in place also on the medial side of the left thigh and left leg NEUROLOGICAL: Gross neurological examination did not reveal any focal deficits. SKIN: No rashes. no petechiae. - Labs CBC & Chem 7: 09/18/23 09:35 09/18/23 09:35 Labs: Abnormal Lab Results - Last 24 Hours (Table) 09/17/23 Range/Units 07:41 Sodium 132 L (137-145) mmol/L Potassium 3.2 L (3.5-5.1) mmol/L Creatinine 0.60 L (0.66-1.25) mg/dL Glucose 118 H (74-99) mg/dL Calcium 7.9 L (8.4-10.2) mg/dL Assessment and Plan Assessment: -Left foot gangrene and wound infection with cellulitis status post excision and debridement and 09/04. Angiogram showing significant disease of the left lower extremity. Status post Left common femoral artery endarterectomy with patch angioplasty andLeft femoral to below knee popliteal artery bypass with InSitu greater saphenous graft, -Depression, with previous suicidal ideation. He is improved and patient was by psychiatrist who discontinued the sitter -Alcohol lose disorder, patient consult and increased to quit. No withdrawal symptoms currently -Hyponatremia, hypervolemic -Bilateral pitting leg edema -DVT prophylaxis patient is on Xarelto Plan: Patient s is a status post surgery of the left lower extremity on 09/14 including endarterectomy Continue with Unasyn. Follow-up final wound culture results Psychiatric evaluation is appreciated. Psychiatric team discontinued sitter and found patient does not meet criteria for inpatient psych unit, continue with medications recommended by psychiatrist Monitor sodium level and follow with pear picker recommendation. Labs and medication were reviewed.. Monitor labs and vitals. DVT and GI prophylaxis. Patient will be continued on aspirin and statins. On IV Lasix 40 mg daily. DVT prophylaxis: Xarelto 2.5 mg GI Prophylaxis: Pepcid PT/OT: Subacute rehab, patient is agreeable Prognosis is guarded Time with Patient: Greater than 30
--- NOTE | 2023-09-18 23:04 | P.PN ---
Subjective Progress Note Date: 09/18/23 57-year-old gentleman with past medical history significant for duodenal ulcer, history of gastrointestinal bleed, peripheral arterial disease history of s/p right femoral endarterectomy, right SFA and profunda embolectomy 2016, history of colon diverticulosis, history of COPD, alcohol use, history of de pression presents to the emergency department with complaints of wound noted on his foot for approximately 8 months. Patient said he has been using topical antibiotic however recently patient has noted that the wound was getting worse. Patient states that for approximately 1 week he has not removed his socks and decided to come to the emergency since patient was unable to walk. Patient does endorse that he has history of arterial disease however denies history of diabetes. Workup initiated in ER included CBC which showed WBC of 10.7 hemoglobin 12.6 platelet count of 329 Chemistry obtained in ER showed sodium of 119, potassium 4.2, dioxide 21 BUN 10 creatinine 0.53 X-ray obtained in ER showed soft tissue wound lateral to the fifth metatarsal head.. Further evaluation ordered including CT foot Patient started on IV Zosyn and vancomycin admitted to medical floor 09/04/23: patient seen and evaluated at bedside, CT angiogram lower extremity reviewed bilateral moderate to severe occlusive disease noted. , vascular surgery consulted. Patient started on aspirin and Lipitor. Appreciate input from Infectious Disease continue patient on IV antibiotic continue with wound care. Patient going for wound debridement made n.p.o. patient made suicidal ideation, continue one-to-one sitter will consult psychiatry 09/05/2023 This is a pleasant 57 years old male who presents on 09/03 for left foot infection on the wound which was been going on for 8 months, recently getting worse. He is status post excision and debridement and 09/04. Today postop day #1. His left foot in a dressing and pain was controlled. 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 When asked the patient he told me he has depression but he denies suicidal ideation or homicidal ideation currently. No evidence of active delirium tremens or alcohol withdrawal symptoms His wound culture is growing sensitive for Proteus and the vancomycin was discontinued Discussed with staff 09/06/2023 Patient transferred to [address] [place] [address] after the angiogram done yesterday by vascular surgery team showing significant peripheral vascular disease involvement the l eft lower extremity including the iliac arteries and tibia arteries as well. Patient remains on Unasyn and wound culture, Proteus, repeat wound culture growing gram-negative bacilli which is pending for now Patients sodium 128 and he has evidence of bilateral leg swelling. Is status post Lasix 20 mg 1 today 09/07/2023 Patient is awake and alert, no pain no distress, no new complaints No chest pain or dyspnea His left foot wound with a dressing in place. No significant pain Patient is planned to go for OR today for revascularization and direct hysterectomy and possible bypass procedure with vascular surgery team Patient low potassium and magnesium been replaced per protocol He is on Unasyn. Local withdrawal 09/08/2023 Patient awake and alert He is supposed to get surgery for his peripheral vascular disease of the left lower extremity including endarterectomy and bypass procedure however it was held and vascular surgery are considering doing it as an outpatient. In the meantime he remains being treated with IV Unasyn for his left foot wound and infection, PICC line was placed for IV antibiotics Unasyn upon discharge per recommendation of ID team Patient required ECF upon discharge, prior authorization is still pending He is on multiple pain regimen 09/09/2039 Patient still being treated for his left foot infection and wound. He has evidence of peripheral vascular disease, initially vascular surgery team are planning to do revascularization procedure for his left lower extremity however currently this is was postponed until outpatient basis. Patient informed and he agreed He continues to improve with IV antibiotic, currently he is on IV Unasyn and plan for him to be discharged on IV antibiotic. PICC line is in place Patient also wants to be DNR 09/11/2023 Patient discharged yesterday was held for placement I discussed the case with caseworker intake today, his insurance has lapsed and now his with no insurance and marriage and family social worker on the case for his discharge planning Clinically patient looks the same, no new complaint. Will check bladder scan that was less than 10. Patient does not need Stearns catheter Patient is aware with the discharge plan and is agreeable Will discharge patient to rehab once authorization is obtained 09/12/2023 Patient clinically looks the same. He has slightly worsening labs Patient has no insurance to go to rehab, patient is scheduled for surgery this coming Thursday 09/14. Continue with antibiotic patient awake alert, no new complaint No chest pain or dyspnea Patient planned to undergo vascular surgery of his left leg/ankle on this coming Sunday09/14/2023 Patient is awake and alert looks comfortable in bed No chest pain no dyspnea Is able get up from bed His left lower extremity cellulitis looks improvement with less warmth and tenderness and swelling. Remains on broad-spectrum antibiotics Patient planned for left femoral endarterectomy and left femoral-tibial bypass procedure and possible debridement 09/15/2023 Patient In bed comfortable. No chest pain or dyspnea. No other complaints. Vitals and labs reviewed. He has mild increased liver enzymes. We will check it tomorrow. However patient denies any right upper quadrant pain or tenderness hi Patient planned for left femoral endarterectomy and left femoral-tibial bypass procedure and possible debridement today 09/16/2023 Patient s/p Left common femoral artery endarterectomy with patch angioplasty andLeft femoral to below knee popliteal artery bypass with InSitu greater saphenous graft, patient is postop day #1 He denies chest pain or dyspnea he is awake and calm Overnight he pulled his wound VAC from his left leg. Vascular surgery had to come and clean the area and put the dressing back in. Pain is minimal this morning. No chest pain dyspnea. No other new complaints His liver enzymes are improving. Rest of labs and vitals look stable Remains on Unasyn. Also he is on Xarelto 2.5 mg started by surgery team 09/17/2023 Patient is lying in the bed. Awake alert and orient x 3. Patient is complaining of left lower extremity pain this morning. Also complains of dizziness getting up. Blood pressure was low this morning with SBP upper 80s. No complaints of chest pain or shortness of breath. No nausea vomiting abdominal pain or diarrhea. Currently on room air. Lab data showed sodium 132 potassium 3.3 chloride 101 bicarb is 23 BUN 11 creatinine 0.63 blood sugar 118 and calcium 7.9 and magnesium 1.9. Patient is being currently on Lasix 40 mg IV. daily Also on antibiotics in the form of Unasyn. Anticoagulation with Xarelto 2.5 mg p.o. twice daily. Vascular surgery, ID and cardiology and nephrology is on board. 09/18/2023 Patient is resting in the bed. Awake alert and oriented x 3. Lower extremity pain is better. Swelling is also improving. It is an denied any dizziness or lightheadedness. Patient has been afebrile. Continue to be antibiotics Unasyn. Wound cultures growing Proteus vulgaris. Patient is also on IV Lasix 40 mg daily. Laboratory data showed WBC 9.8 hemoglobin 8.3 and platelets 429 Sodium 134 potassium 3.4 chloride 104 bicarb is 26 BUN 12 and creatinine 0.67 blood sugar 89 and calcium 7.4 magnesium 1.8. Current medications reviewed. Objective - Vital Signs Vital signs: Vital Signs Temp 98.2 F 09/18/23 16:00 Pulse 78 09/18/23 16:00 Resp 17 09/18/23 16:00 BP 119/69 09/18/23 16:00 Pulse Ox 97 09/18/23 16:00 FiO2 Intake & Output 09/18/23 09/18/23 09/19/23 06:59 18:59 06:59 Intake Total 118 Output Total 1999 1749 Balance -1999 Weight 93.2 kg Intake: Oral 118 Output: Urine 1999 1749 Other: Voiding Method Urinal Urinal # Voids 2 - Exam GENERAL: The patient is alert and oriented x3, not in any acute distress. Well developed, well nourished. HEENT: Pupils are round and equally reacting to light. EOMI. No scleral icterus. No conjunctival pallor. Normocephalic, atraumatic. No pharyngeal erythema. No thyromegaly. CARDIOVASCULAR: S1 and S2 present. No murmurs, rubs, or gallops. PULMONARY: Chest is clear to auscultation, no wheezing , no crackles. ABDOMEN: Soft, nontender, nondistended, normoactive bowel sounds. No palpable organomegaly. MUSCULOSKELETAL: No joint swelling or deformity. -EXTREMITIES: No cyanosis, clubbing, or pedal edema. Left foot surgical wound with dressing in Place. Rest of exam is deferred to surgery team. Your surgical wounds with dressing in place also on the medial side of the left thigh and left leg NEUROLOGICAL: Gross neurological examination did not reveal any focal deficits. SKIN: No rashes. no petechiae. - Labs CBC & Chem 7: 09/18/23 09:35 09/18/23 09:35 Labs: Abnormal Lab Results - Last 24 Hours (Table) 09/18/23 09/18/23 Range/Units 09:35 09:35 RBC 2.90 L (4.30-5.90) m/uL Hgb 8.3 L D (13.0-17.5) gm/dL Hct 25.3 L (39.0-53.0) % Neutrophils # 7.9 H (1.3-7.7) k/uL Lymphocytes # 0.8 L (1.0-4.8) k/uL Sodium 134 L (137-145) mmol/L Potassium 3.4 L (3.5-5.1) mmol/L Calcium 7.4 L (8.4-10.2) mg/dL Assessment and Plan Assessment: -Left foot ischemia and wound infection with cellulitis status post excision and debridement and 09/04. Angiogram showing significant disease of the left lower extremity. Status post Left common femoral artery endarterectomy with patch angioplasty andLeft femoral to below knee popliteal artery bypass with InSitu greater saphenous graft, -Depression, with previous suicidal ideation. He is improved and patient was by psychiatrist who discontinued the sitter -Alcohol lose disorder, patient consult and increased to quit. No withdrawal symptoms currently -Hyponatremia, hypervolemic -Bilateral pitting leg edema -DVT prophylaxis patient is on Xarelto Plan: Patient is a status post surgery of the left lower extremity on 09/14 including endarterectomy Continue with Unasyn. Wound cultures growing Proteus vulgaris. Patient is being continued on Unasyn. Psychiatric evaluation is appreciated. Psychiatric team discontinued sitter and found patient does not meet criteria for inpatient psych unit, continue with medications recommended by psychiatrist Monitor sodium level and follow with oyster floater recommendation. Labs and medication were reviewed.. Monitor labs and vitals. DVT and GI prophylaxis. Patient will be continued on aspirin and statins. On IV Lasix 40 mg daily. DVT prophylaxis: Xarelto 2.5 mg GI Prophylaxis: Pepcid PT/OT: Subacute rehab, patient is agreeable Prognosis is guarded Time with Patient: Greater than 30
[2023-09-18 23:24] LABS: ALT 97 U/L (4-49); AST 125 U/L (17-59); African American GFR (CKD) >90 (>60 ml/min/1.73 sqM); Albumin 2.1 g/dL (3.5-5.0); Alkaline Phosphatase 182 U/L (38-126); Anion Gap 5 mmol/L; Blood Urea Nitrogen 11 mg/dL (9-20); Calcium 7.3 mg/dL (8.4-10.2); Carbon Dioxide 25 mmol/L (22-30); Chloride 102 mmol/L (98-107); Glucose 122 mg/dL (74-99); Magnesium 1.6 mg/dL (1.6-2.3); Non-African American GFR(CKD) >90 (>60 ml/min/1.73 sqM); Potassium 3.3 mmol/L (3.5-5.1); Sodium 132 mmol/L (137-145); Total Bilirubin 0.5 mg/dL (0.2-1.3); Total Protein 5.2 g/dL (6.3-8.2)
[2023-09-18] MEDS: POTASSIUM CHLORIDE ER 20 MEQ TAB.ER PO SCH (23:58)
[2023-09-18] MEDS: MAGNESIUM SULFATE-D5W PMX 1 GM in DEXTROSE/WATER 1 100ML.BAG IVPB SCH (23:59)
[2023-09-19 04:48] VITALS: RESP 16
[2023-09-19 09:09] LABS: Basophils # (A) 0.1 k/uL (0-0.2); Basophils % (A) 1 %; Eosinophils # (A) 0.1 k/uL (0-0.7); Eosinophils % (A) 1 %; HCT 27.6 % (39.0-53.0); Lymphocytes # (A) 0.8 k/uL (1.0-4.8); Lymphocytes % (A) 9 %; MCH 28.8 pg (25.0-35.0); MCHC 32.6 g/dL (31.0-37.0); MCV 88.4 fL (80.0-100.0); Mean Platelet Volume 7.5; Monocytes # (A) 0.5 k/uL (0-1.0); Monocytes % (A) 5 %; Neutrophils # (A) 7.4 k/uL (1.3-7.7); Neutrophils % (A) 82 %; Platelet Count 502 k/uL (150-450); RBC 3.13 m/uL (4.30-5.90); RDW 13.4 % (11.5-15.5)
[2023-09-19 09:17] LABS: African American GFR (CKD) >90 (>60 ml/min/1.73 sqM); Anion Gap 8 mmol/L; Blood Urea Nitrogen 10 mg/dL (9-20); Calcium 7.8 mg/dL (8.4-10.2); Carbon Dioxide 22 mmol/L (22-30); Chloride 103 mmol/L (98-107); Glucose 122 mg/dL (74-99); Magnesium 2.1 mg/dL (1.6-2.3); Non-African American GFR(CKD) >90 (>60 ml/min/1.73 sqM); Potassium 4.1 mmol/L (3.5-5.1); Sodium 133 mmol/L (137-145)
[2023-09-19 09:25] VITALS: TEMP 99.7
--- NOTE | 2023-09-19 12:03 | P.PN ---
Subjective Patient is seen in follow-up for hyponatremia. Sodium level 133 today. Oral intake good. No vomiting or diarrhea. Good urine output. On IV Lasix. Vital signs are stable. General: No acute distress. HEENT: Head exam is unremarkable. LUNGS: No audible rhonchi or wheezes. HEART: Rate and Rhythm are regular. ABDOMEN: Nontender. EXTREMITITES: 1+ edema. No drainage noted. Objective - Vital Signs Vital signs: Vital Signs Temp 99.7 F H 09/19/23 08:55 Pulse 86 09/19/23 08:55 Resp 16 09/19/23 08:55 BP 96/51 09/19/23 08:55 Pulse Ox 98 09/19/23 08:55 FiO2 Intake & Output 09/18/23 09/19/23 09/19/23 18:59 06:59 18:59 Intake Total 118 Output Total 1750 600 700 Balance -6122 -600 -700 Weight 92.7 kg Intake: Oral 118 Output: Urine 1750 600 700 Other: Voiding Method Urinal Urinal Urinal # Voids 2 3 - Labs CBC & Chem 7: 09/19/23 08:33 09/19/23 08:33 Labs: Abnormal Lab Results - Last 24 Hours (Table) 09/18/23 09/19/23 09/19/23 Range/Units 22:32 08:33 08:33 RBC 3.13 L (4.30-5.90) m/uL Hgb 9.0 L (13.0-17.5) gm/dL Hct 27.6 L (39.0-53.0) % Plt Count 502 H (150-450) k/uL Lymphocytes # 0.8 L (1.0-4.8) k/uL Sodium 132 L 133 L (137-145) mmol/L Potassium 3.3 L (3.5-5.1) mmol/L Creatinine 0.62 L (0.66-1.25) mg/dL Glucose 122 H 122 H (74-99) mg/dL Calcium 7.3 L 7.8 L (8.4-10.2) mg/dL AST 125 H (17-59) U/L ALT 97 H (4-49) U/L Alkaline Phosphatase 182 H (38-126) U/L Total Protein 5.2 L (6.3-8.2) g/dL Albumin 2.1 L (3.5-5.0) g/dL Assessment and Plan Plan: Assessment: 1. Hyponatremia from poor solute intake and excessive fluid intake. Now hypervolemic on Lasix. Urine sodium less than 20 and urine osmolality 312. TSH normal. Sodium level 133 today. 2. Left foot wound on antibiotics. Culture positive for Proteus. Infectious disease and vascular surgery following. Status post debridement September 04, 2023. 3. Peripheral arterial disease with prior stenting. Underwent left common femoral artery endarterectomy with patch angioplasty, left femoral to below-knee popliteal artery bypass September 15, 2023. 4. Urinary retention status post Stearns catheter placement - Stearns catheter had been removed but was placed again yesterday for surgery.. On Flomax. 5. Hypokalemia from diuresis. Replaced. Better. Plan: Encouraged oral intake. Maintain 1500 cc fluid restriction - stressed compliance. Change Lasix to 40 mg orally once daily starting tomorrow. Add maintenance potassium supplementation. Repeat BMP and magnesium level 2 to 3 days postdischarge. Follow-up outpatient in 1 week.
[2023-09-19 13:25] VITALS: BP 105/55; PULSE 73
--- NOTE | 2023-09-19 13:52 | P.DS ---
Providers Date of admission: 09/03/23 13:37 Expected date of discharge: 09/19/23 Attending physician: Fredi Wagner MD Consults: 09/03/23 13:30 Consult Physician Routine Consulting Provider: Surekha Stearns Consult Reason/Comments: History of peripheral arterial disease with suspicion chr for limb ischemia Do you want consulting provider notified?: Yes Consult Physician Routine Consulting Provider: Torrie Shaffer Consult Reason/Comments: Foot infection suspected osteomyelitis Do you want consulting provider notified?: Yes 09/03/23 13:36 Consult Physician Routine Consulting Provider: Jcarlos Knutson Consult Reason/Comments: Acute hyponatremia Do you want consulting provider notified?: Yes 09/03/23 22:37 Consult Physician Routine Consulting Provider: Ted Barrientos Consult Reason/Comments: Suicidal thoughs Do you want consulting provider notified?: Yes, Notify in am 09/16/23 08:23 Consult Physician Routine Consulting Provider: Ryan Sherman Consult Reason/Comments: NSVT, 7 RUNS Do you want consulting provider notified?: Yes Primary care physician: Stated None Hospital Course: Discharge diagnosis -Left foot ischemia and wound infection with cellulitis status post excision and debridement and 09/04. Angiogram showing significant disease of the left lower extremity. Status post Left common femoral artery endarterectomy with patch angioplasty andLeft femoral to below knee popliteal artery bypass with InSitu greater saphenous graft,. Wound cultures growing Proteus vulgaris. Continue with Unasyn as per ID recommendations. -Depression, with previous suicidal ideation. He is improved and patient was seen by psychiatrist who discontinued the sitter. Continue with medications. -Alcohol lose disorder, patient consult and increased to quit. No withdrawal symptoms currently -Hyponatremia, hypervolemic. Improving. -Bilateral pitting leg edema -Nonsustained V. tach -DVT prophylaxis patient is on Xarelto 2.5 mg twice daily. Hospital course Pt. is a 57-year-old gentleman with past medical history significant for duodenal ulcer, history of gastrointestinal bleed, peripheral arterial disease history of s/p right femoral endarterectomy, right SFA and profunda embolectomy 2016, history of colon diverticulosis, history of COPD, alcohol use, history of depression presents to the emergency department with complaints of wound noted on his foot for approximately 8 months. Patient said he has been using topical antibiotic however recently patient has noted that the wound was getting worse. Patient states that for approximately 1 week he has not removed his socks and decided to come to the emergency since patient was unable to walk. Patient does endorse that he has history of arterial disease however denies history of diabetes. Workup initiated in ER included CBC which showed WBC of 10.7 hemoglobin 12.6 platelet count of 329 Chemistry obtained in ER showed sodium of 119, potassium 4.2, dioxide 21 BUN 10 creatinine 0.53 X-ray obtained in ER showed soft tissue wound lateral to the fifth metatarsal head.. Further evaluation ordered including CT foot Patient started on IV Zosyn and vancomycin admitted to medical floor 09/04/23: patient seen and evaluated at bedside, CT angiogram lower extremity reviewed bilateral moderate to severe occlusive disease noted. , vascular surgery consulted. Patient started on aspirin and Lipitor. Appreciate input from Infectious Disease continue patient on IV antibiotic continue with wound care. Patient going for wound debridement made n.p.o. patient made suicidal ideation, continue one-to-one sitter will consult psychiatry 09/05/2023 This is a pleasant 57 years old male who presents on 09/03 for left foot infection on the wound which was been going on for 8 months, recently getting worse. He is status post excision and debridement and 09/04. Today postop day #1. His left foot in a dressing and pain was controlled. 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 When asked the patient he told me he has depression but he denies suicidal ideation or homicidal ideation currently. No evidence of active delirium tremens or alcohol withdrawal symptoms His wound culture is growing sensitive for Proteus and the vancomycin was discontinued Discussed with staff 09/06/2023 Patient transferred to [address] [place] [address] after the angiogram done yesterday by vascular surgery team showing significant peripheral vascular disease involvement the left lower extremity including the iliac arteries and tibia arteries as well. Patient remains on Unasyn and wound culture, Proteus, repeat wound culture growing gram-negative bacilli which is pending for now Patients sodium 128 and he has evidence of bilateral leg swelling. Is status post Lasix 20 mg 1 today 09/07/2023 Patient is awake and alert, no pain no distress, no new complaints No chest pain or dyspnea His left foot wound with a dressing in place. No significant pain Patient is planned to go for OR today for revascularization and direct hysterectomy and possible bypass procedure with vascular surgery team Patient low potassium and magnesium been replaced per protocol He is on Unasyn. Local withdrawal 09/08/2023 Patient awake and alert He is supposed to get surgery for his peripheral vascular disease of the left lower extremity including endarterectomy and bypass procedure however it was held and vascular surgery are considering doing it as an outpatient. In the meantime he remains being treated with IV Unasyn for his left foot wound and infection, PICC line was placed for IV antibiotics Unasyn upon discharge per recommendation of ID team Patient required ECF upon discharge, prior authorization is still pending He is on multiple pain regimen 09/09/2039 Patient still being treated for his left foot infection and wound. He has evidence of peripheral vascular disease, initially vascular surgery team are planning to do revascularization procedure for his left lower extremity however currently this is was postponed until outpatient basis. Patient informed and he agreed He continues to improve with IV antibiotic, currently he is on IV Unasyn and plan for him to be discharged on IV antibiotic. PICC line is in place Patient also wants to be DNR 09/11/2023 Patient discharged yesterday was held for placement I discussed the case with protective services case worker today, his insurance has lapsed and now his with no insurance and social sciences professor on the case for his discharge planning Clinically patient looks the same, no new complaint. Will check bladder scan that was less than 10. Patient does not need Stearns catheter Patient is aware with the discharge plan and is agreeable Will discharge patient to rehab once authorization is obtained 09/12/2023 Patient clinically looks the same. He has slightly worsening labs Patient has no insurance to go to rehab, patient is scheduled for surgery this coming Thursday 09/14. Continue with antibiotic patient awake alert, no new complaint No chest pain or dyspnea Patient planned to undergo vascular surgery of his left leg/ankle on this coming Sunday09/14/2023 Patient is awake and alert looks comfortable in bed No chest pain no dyspnea Is able get up from bed His left lower extremity cellulitis looks improvement with less warmth and tenderness and swelling. Remains on broad-spectrum antibiotics Patient planned for left femoral endarterectomy and left femoral-tibial bypass procedure and possible debridement 09/15/2023 Patient In bed comfortable. No chest pain or dyspnea. No other complaints. Vitals and labs reviewed. He has mild increased liver enzymes. We will check it tomorrow. However patient denies any right upper quadrant pain or tenderness hi Patient planned for left femoral endarterectomy and left femoral-tibial bypass procedure and possible debridement today 09/16/2023 Patient s/p Left common femoral artery endarterectomy with patch angioplasty andLeft femoral to below knee popliteal artery bypass with InSitu greater saphenous graft, patient is postop day #1 He denies chest pain or dyspnea he is awake and calm Overnight he pulled his wound VAC from his left leg. Vascular surgery had to come and clean the area and put the dressing back in. Pain is minimal this morning. No chest pain dyspnea. No other new complaints His liver enzymes are improving. Rest of labs and vitals look stable Remains on Unasyn. Also he is on Xarelto 2.5 mg started by surgery team 09/17/2023 Patient is lying in the bed. Awake alert and orient x 3. Patient is complaining of left lower extremity pain this morning. Also complains of dizziness getting up. Blood pressure was low this morning with SBP upper 80s. No complaints of chest pain or shortness of breath. No nausea vomiting abdominal pain or diarrhea. Currently on room air. Lab data showed sodium 132 potassium 3.3 chloride 101 bicarb is 23 BUN 11 creatinine 0.63 blood sugar 118 and calcium 7.9 and magnesium 1.9. Patient is being currently on Lasix 40 mg IV. daily Also on antibiotics in the form of Unasyn. Anticoagulation with Xarelto 2.5 mg p.o. twice daily. Vascular surgery, ID and cardiology and nephrology is on board. 09/18/2023 Patient is resting in the bed. Awake alert and oriented x 3. Lower extremity pain is better. Swelling is also improving. It is an denied any dizziness or lightheadedness. Patient has been afebrile. Continue to be antibiotics Unasyn. Wound cultures growing Proteus vulgaris. Patient is also on IV Lasix 40 mg daily. Laboratory data showed WBC 9.8 hemoglobin 8.3 and platelets 429 Sodium 134 potassium 3.4 chloride 104 bicarb is 26 BUN 12 and creatinine 0.67 blood sugar 89 and calcium 7.4 magnesium 1.8. 09/19/2023 Patient is resting in the bed. Awake alert and oriented x 2-3. No complaints of chest pain or shortness of breath. Currently on room air. Left leg pain is much improved. No nausea vomiting or abdominal pain or diarrhea. Patient is tolerating oral diet. Nephrology recommends to maintain 1.5 L fluid restriction and continue with Lasix 40 mg daily and potassium supplementation. Continue with IV antibiotics Unasyn and follow-up with vascular surgery and ID as an outpatient as well. Patient is being discharged to rehab today. Discussed with his mother at bedside in detail. Stearns catheter has been discontinued and awaiting spontaneous voiding. Patient will be continued on aspirin, statin send Xarelto. GENERAL: The patient is alert and oriented x3, not in any acute distress. Well developed, well nourished. HEENT: Pupils are round and equally reacting to light. EOMI. No scleral icterus. No conjunctival pallor. Normocephalic, atraumatic. No pharyngeal erythema. No thyromegaly. CARDIOVASCULAR: S1 and S2 present. No murmurs, rubs, or gallops. PULMONARY: Chest is clear to auscultation, no wheezing , no crackles. ABDOMEN: Soft, nontender, nondistended, normoactive bowel sounds. No palpable organomegaly. MUSCULOSKELETAL: No joint swelling or deformity. -EXTREMITIES: No cyanosis, clubbing, or pedal edema. Left foot surgical wound with dressing in Place. Rest of exam is deferred to surgery team. Your surgical wounds with dressing in place also on the medial side of the left thigh and left leg NEUROLOGICAL: Gross neurological examination did not reveal any focal deficits. SKIN: No rashes. no petechiae. Vital Signs 09/19/23 09/19/23 08:55 12:10 Temperature 99.7 F H Pulse Rate [ 86 73 [employer] ] Respiratory 16 16 Rate Blood Pressure 96/51 105/55 [Right Arm] O2 Sat by Pulse 98 99 Oximetry Total time taken greater than 35 minutes including 18 minutes for counseling and coordination of care. Patient Condition at Discharge: Stable Plan - Discharge Summary Discharge Rx Participant: No New Discharge Prescriptions: New Tamsulosin [Flomax] 0.4 mg PO PC-BRKFST #30 cap Metoprolol Succinate (ER) [Toprol XL] 25 mg PO DAILY #30 tab Furosemide [Lasix] 40 mg PO DAILY #30 tab Aspirin 81 mg PO DAILY tab Citalopram Hydrobromide [CeleXA] 40 mg PO HS tab Atorvastatin [Lipitor] 40 mg PO HS tab oxyCODONE-APAP 5-325MG [Percocet 5-325 mg] 1 each PO Q8HR PRN #6 tab PRN Reason: Severe Pain (Scale 7 To 10) Mirtazapine [Remeron] 15 mg PO HS tab Collagenase [Santyl Ointment] 1 applic TOPICAL DAILY each Acetaminophen Tab [Tylenol] 650 mg PO Q6HR PRN tab PRN Reason: Mild Pain Or Fever > 100.5 Melatonin 5 mg PO HS PRN #10 tab PRN Reason: Insomnia Ampicillin Sodium/Sulbactam Na [Unasyn 3 gm Vial] 3 gm IV Q6H 21 Days each Thiamine [Vitamin B-1] 100 mg PO DAILY #30 tab Rivaroxaban [Xarelto] 2.5 mg PO BID #60 tab Potassium Chloride ER [K-Dur 10] 10 meq PO DAILY #30 tab Continue Omeprazole 20 mg PO HS Changed ALPRAZolam [Xanax] 0.5 mg PO HS PRN #3 PRN Reason: Insomnia Discontinued ALPRAZolam [Xanax] 0.25 mg PO DAILY PRN PRN Reason: Anxiety/SLEEP Citalopram Hydrobromide [CeleXA] 20 mg PO HS Discharge Medication List Omeprazole 20 mg PO HS 09/03/23 [History] ALPRAZolam [Xanax] 0.5 mg PO HS PRN #3 09/10/23 [Rx] Acetaminophen Tab [Tylenol] 650 mg PO Q6HR PRN tab 09/10/23 [Rx] Ampicillin Sodium/Sulbactam Na [Unasyn 3 gm Vial] 3 gm IV Q6H 21 Days each 09/10/23 [Rx] Aspirin 81 mg PO DAILY tab 09/10/23 [Rx] Atorvastatin [Lipitor] 40 mg PO HS tab 09/10/23 [Rx] Citalopram Hydrobromide [CeleXA] 40 mg PO HS tab 09/10/23 [Rx] Collagenase [Santyl Ointment] 1 applic TOPICAL DAILY each 09/10/23 [Rx] Melatonin 5 mg PO HS PRN #10 tab 09/10/23 [Rx] Mirtazapine [Remeron] 15 mg PO HS tab 09/10/23 [Rx] Tamsulosin [Flomax] 0.4 mg PO PC-BRKFST #30 cap 09/10/23 [Rx] oxyCODONE-APAP 5-325MG [Percocet 5-325 mg] 1 each PO Q8HR PRN #6 tab 09/10/23 [Rx] Furosemide [Lasix] 40 mg PO DAILY #30 tab 09/19/23 [Rx] Metoprolol Succinate (ER) [Toprol XL] 25 mg PO DAILY #30 tab 09/19/23 [Rx] Potassium Chloride ER [K-Dur 10] 10 meq PO DAILY #30 tab 09/19/23 [Rx] Rivaroxaban [Xarelto] 2.5 mg PO BID #60 tab 09/19/23 [Rx] Thiamine [Vitamin B-1] 100 mg PO DAILY #30 tab 09/19/23 [Rx] Follow up Appointment(s)/Referral(s): Ryan Sherman MD [Medical Doctor] - 1 Week Marcos Payne DO [STAFF PHYSICIAN] - 2 Weeks None,Stated [Primary Care Provider] - 1-2 days [facility] [NON-STAFF] - 1 Week Jcarlos Knutson DO [STAFF PHYSICIAN] - 1 Week Torrie Shaffer MD [STAFF PHYSICIAN] - 1 Week Patient Instructions/Handouts: Hyponatremia (DC), Chronic Wound Care (DC), PICC (Peripherally Inserted Central Catheter) (DC), Incision and Drainage (DC) Activity/Diet/Wound Care/Special Instructions: Heart healthy diet, continue fluid restriction 1500 ml per day Activity as tolerated We recommend to discontinue PICC line after finishing his course of IV antibiotic Patient will require sowing outpatient follow-up with Dr. Car already from vascular surgery for revascularization of his left lower extremity peripheral vascular disease. monitor sodium level Discharge/Stand Alone Forms: Area PCPs Discharge Disposition: TRANSFER TO SNF/ECF
--- NOTE | 2023-09-19 15:29 | P.PN ---
Subjective Progress Note Date: 09/19/23 Principal diagnosis: Chronic wound, peripheral arterial disease Patient seen and examined today as a follow-up. Swelling improved to the left lower extremity. He states pain has improved. No acute changes through the night. Hemoglobin stable at 9.0. He has been seen and evaluated and working with physical therapy. Objective - Vital Signs Vital signs: Vital Signs Temp 99.7 F H 09/19/23 08:55 Pulse 86 09/19/23 08:55 Resp 16 09/19/23 08:55 BP 96/51 09/19/23 08:55 Pulse Ox 98 09/19/23 08:55 FiO2 Intake & Output 09/18/23 09/19/23 09/19/23 18:59 06:59 18:59 Intake Total 118 Output Total 1750 600 Balance -1632 -600 Weight 92.7 kg Intake: Oral 118 Output: Urine 1750 600 Other: Voiding Method Urinal Urinal Urinal # Voids 2 - Exam General appearance: The patient is alert, oriented, appears in no acute distress. HET: Head is normocephalic and atraumatic. Neck: Supple. Extremities: Left lower extremity swelling. Left lower extremity groin incision well-approximated without any drainage, no notable hematoma. Left medial thigh incision well-approximated without any drainage or redness. Left medial lower and extremity incision well-approximated. Palpable bypass. left foot dressing clean dry and intact. Neurological: No focal deficits. - Labs CBC & Chem 7: 09/19/23 08:33 09/19/23 08:33 Labs: Abnormal Lab Results - Last 24 Hours (Table) 09/18/23 09/18/23 09/18/23 Range/Units 09:35 09:35 22:32 RBC 2.90 L (4.30-5.90) m/uL Hgb 8.3 L D (13.0-17.5) gm/dL Hct 25.3 L (39.0-53.0) % Plt Count (150-450) k/uL Neutrophils # 7.9 H (1.3-7.7) k/uL Lymphocytes # 0.8 L (1.0-4.8) k/uL Sodium 134 L 132 L (137-145) mmol/L Potassium 3.4 L 3.3 L (3.5-5.1) mmol/L Creatinine (0.66-1.25) mg/dL Glucose 122 H (74-99) mg/dL Calcium 7.4 L 7.3 L (8.4-10.2) mg/dL AST 125 H (17-59) U/L ALT 97 H (4-49) U/L Alkaline Phosphatase 182 H (38-126) U/L Total Protein 5.2 L (6.3-8.2) g/dL Albumin 2.1 L (3.5-5.0) g/dL 09/19/23 09/19/23 Range/Units 08:33 08:33 RBC 3.13 L (4.30-5.90) m/uL Hgb 9.0 L (13.0-17.5) gm/dL Hct 27.6 L (39.0-53.0) % Plt Count 502 H (150-450) k/uL Neutrophils # (1.3-7.7) k/uL Lymphocytes # 0.8 L (1.0-4.8) k/uL Sodium 133 L (137-145) mmol/L Potassium (3.5-5.1) mmol/L Creatinine 0.62 L (0.66-1.25) mg/dL Glucose 122 H (74-99) mg/dL Calcium 7.8 L (8.4-10.2) mg/dL AST (17-59) U/L ALT (4-49) U/L Alkaline Phosphatase (38-126) U/L Total Protein (6.3-8.2) g/dL Albumin (3.5-5.0) g/dL Assessment and Plan Assessment: 1. 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 Annamaria 6 peripheral arterial disease 3. Chronic left foot/lower extremity wound status post debridement 4. Cellulitis 5. History of peripheral arterial disease with previous right lower extremity stenting and femoropopliteal bypass 6. Suicidal ideations on suicide watch Plan: 1. Continue local wound care as recommended by wound clinic 2. Continue with recommendations from infectious disease 3. Consult to physical therapy 4. Patient will need continued outpatient wound care with the [facility] wound clinic 5. Rest of medical management per primary medical team 6. Elevate left lower extremity Thank you for this consultation, patient is cleared from vascular surgery for discharge. The impression and plan of care has been dictated as directed. Dr. Stearns I performed a history and examination of this patient, discussed the same with the dictator. I agree with the dictator's note ,documented as a scribe. Any additional findings or plans will be noted.
[2023-09-20] MEDS ORDERED: FUROSEMIDE 40 MG TAB PO SCH (09:00)
[2023-09-20] MEDS ORDERED: POTASSIUM CHLORIDE ER 10 MEQ TAB.ER.PRT PO SCH (09:00)
== END 2023-09-19 15:44 | DRG 181 ==
LOC: EC 10:45 → 4SSUR 13:37 → 3SCARD 09-05 15:42 → 4SSUR 09-10 21:55 → 3SCARD 09-13 16:08
PROVIDERS: ADMIT Internal Medicine; ATTEND Internal Medicine
DX: I70.262 Atherosclerosis of native arteries of extremities with gangrene, left leg (principal); L97.524 Non-pressure chronic ulcer of other part of left foot with necrosis of bone; F17.210 Nicotine dependence, cigarettes, uncomplicated; Z71.6 Tobacco abuse counseling; F10.10 Alcohol abuse, uncomplicated; Z71.41 Alcohol abuse counseling and surveillance of alcoholic; E87.6 Hypokalemia; T50.2X5A Adverse effect of carbonic-anhydrase inhibitors, benzothiadiazides and other diuretics, initial encounter; F32.A Depression, unspecified; I47.20 Ventricular tachycardia, unspecified; Z87.11 Personal history of peptic ulcer disease; J44.9 Chronic obstructive pulmonary disease, unspecified; F41.9 Anxiety disorder, unspecified; I10 Essential (primary) hypertension; R33.9 Retention of urine, unspecified; Z95.828 Presence of other vascular implants and grafts; Z28.311 Partially vaccinated for COVID-19; Z28.21 Immunization not carried out because of patient refusal; R45.851 Suicidal ideations; K21.9 Gastro-esophageal reflux disease without esophagitis; L03.116 Cellulitis of left lower limb; E87.1 Hypo-osmolality and hyponatremia; Z71.3 Dietary counseling and surveillance; B96.4 Proteus (mirabilis) (morganii) as the cause of diseases classified elsewhere; E87.70 Fluid overload, unspecified; Z60.2 Problems related to living alone; Z86.718 Personal history of other venous thrombosis and embolism; Z59.7 Insufficient social insurance and welfare support; Z79.01 Long term (current) use of anticoagulants; Z79.82 Long term (current) use of aspirin; Z79.899 Other long term (current) drug therapy; Z82.49 Family history of ischemic heart disease and other diseases of the circulatory system; Z91.51 Personal history of suicidal behavior
CPT/HCPCS: 36200; 36415; 36573; 51798; 75630; 75635; 75716; 76937; 80048; 80051; 80053; 80076; 80202; 83036; 83605; 83735; 83930; 83935; 84132; 84300; 84443; 85025; 85027; 85610; 85730; 86850; 86900; 86901; 87040; 87070; 87075; 87077; 87186; 87205; 88304; 88305; 88311; 93005; 93306; 96361; 96365; 96366; 96368; 96375; 99291

== ENCOUNTER 2023-11-05 10:37 | Inpatient (IN) | payer OTHER ==
--- NOTE | 2023-11-05 11:39 | ED ---
Wound/Laceration HPI - General Chief Complaint: Wound/Laceration Stated Complaint: Celulitis Time Seen by Provider: 11/05/23 11:00 Source: patient, EMS, RN notes reviewed Mode of arrival: EMS Limitations: physical limitation - History of Present Illness Initial Comments: 58-year-old male presenting with left lower leg edema x 2 days. States he was hospitalized 2 months ago for osteomyelitis of left foot and had to DVTs during his hospital stay. He is currently residing at [facility] for short-term care of his wounds. He was sent here due to swelling and redness of his left lower leg over the weekend. He remains nonweightbearing due to injury. He is currently on Xarelto. He reports infection is improving. - Related Data Home Medications Medication Instructions Recorded Confirmed Acetaminophen Tab [Tylenol Tab] 1,000 mg PO ONETIME 11/05/23 11/05/23 Acetaminophen [Tylenol Arthritis] 650 mg PO Q6H PRN 11/05/23 11/05/23 Citalopram Hydrobromide [CeleXA] 40 mg PO HS 11/05/23 11/05/23 DULoxetine HCL [Cymbalta] 30 mg PO DAILY@0700 11/05/23 11/05/23 Famotidine [Pepcid] 10 mg PO DAILY 11/05/23 11/05/23 Gabapentin 300 mg PO TID@0700,1300,1900 11/05/23 11/05/23 Magnesium Oxide [Mag-Ox] 400 mg PO DAILY@0700 11/05/23 11/05/23 Metoprolol Succinate (ER) [Toprol 25 mg PO DAILY 11/05/23 11/05/23 Xl] Naloxone HCl [Narcan] 4 mg NASAL ONCE PRN 11/05/23 11/05/23 Naloxone [Narcan] 0.4 mg IM ONCE PRN 11/05/23 11/05/23 oxyCODONE-APAP 7.5-325MG [Percocet 1 tab PO Q6HR 11/05/23 11/05/23 7.5-325 mg] Previous Rx's Medication Instructions Recorded Aspirin 81 mg PO DAILY tab 09/10/23 Atorvastatin [Lipitor] 40 mg PO HS tab 09/10/23 Mirtazapine [Remeron] 15 mg PO HS tab 09/10/23 Tamsulosin [Flomax] 0.4 mg PO PC-BRKFST #30 cap 09/10/23 Rivaroxaban [Xarelto] 2.5 mg PO BID #60 tab 09/19/23 Thiamine [Vitamin B-1] 100 mg PO DAILY #30 tab 09/19/23 Allergies Allergy/AdvReac Type Severity Reaction Status Date / Time No Known Allergies Allergy Verified 11/05/23 11:04 Review of Systems ROS Statement: Those systems with pertinent positive or pertinent negative responses have been documented in the HPI. ROS Other: All systems not noted in ROS Statement are negative. Past Medical History Past Medical History: COPD, Vascular Disorder Additional Past Medical History / Comment(s): PVD, DVT R leg-recent R femoral popliteal bypass at [facility] 02/22/17, History of Any Multi-Drug Resistant Organisms: None Reported Past Surgical History: Orthopedic Surgery Additional Past Surgical History / Comment(s): R fem pop bypass 02/22/17 [facility], bilateral knee arthroscopic surgeries. Past Anesthesia/Blood Transfusion Reactions: No Reported Reaction Additional Past Anesthesia/Blood Transfusion Reaction / Comment(s): Pt is currently receiving blood-no reaction at this time. Past Psychological History: Anxiety, Depression Smoking Status: Current every day smoker Past Alcohol Use History: Daily, Heavy Past Drug Use History: None Reported - Past Family History Mother Family Medical History: Cancer, Hyperlipidemia Additional Family Medical History / Comment(s): Mother had skin cancer. She is living. Father Family Medical History: Hyperlipidemia, Hypertension Additional Family Medical History / Comment(s): Father has heart condition. General Exam Limitations: physical limitation General appearance: alert, in no apparent distress Respiratory exam: Present: normal lung sounds bilaterally. Absent: respiratory distress, wheezes, rales, rhonchi, stridor Cardiovascular Exam: Present: regular rate, normal rhythm, normal heart sounds. Absent: systolic murmur, diastolic murmur, rubs, gallop, clicks Left Knee exam: Present: normal inspection, full ROM. Absent: tenderness, swelling Lower Leg exam: Present: swelling. Absent: normal inspection (Lower left le+ pitting edema and diffuse erythema. Full sensation and dorsalis pedis pulses.), full ROM, tenderness Foot/Toe exam: Absent: normal inspection (Multiple well-healing infections over medial aspect of left lower leg and diffusely over left foot.) Neurovascular tendon exam: Absent: no vascular compromise, pulse deficit, abnormal cap refill, sensory deficit Course Vital Signs 11/05/23 10:52 Temperature 98.1 F Pulse Rate 91 Respiratory 16 Rate Blood Pressure 106/68 O2 Sat by Pulse 97 Oximetry Medical Decision Making - Medical Decision Making Was pt. sent in by a medical professional or institution (, [facility], SUPPLY ASSISTANT, urgent care, hospital, or senior living...) When possible be specific @ -Sent by [employer] Did you speak to anyone other than the patient for history (EMS, parent, family, police, friend...)? What history was obtained from this source @ -[No] Did you review nursing and triage notes (agree or disagree)? Why? @ -[I reviewed and agree with nursing and triage notes] Were old charts reviewed (outside hosp., previous admission, EMS record, old EKG, old radiological studies, urgent care reports/EKG's, senior living records)? Report findings @ -Previous admission and previous lab work reviewed. White blood cell count increasing from labs 4 days ago. Differential Diagnosis (chest pain, altered mental status, abdominal pain women, abdominal pain men, vaginal bleeding, weakness, fever, dyspnea, syncope, headache, dizziness, GI bleed, back pain, seizure, CVA, palpatations, mental health, musculoskeletal)? @ -Cellulitis, DVT, necrotizing fasciitis, osteomyelitis EKG interpreted by me (3pts min.). @ -None X-rays interpreted by me (1pt min.). @ -X-ray of left tib-fib ordered at time of admission. CT interpreted by me (1pt min.). @ -[None done] U/S interpreted by me (1pt. min.). @ -Ultrasound of left lower leg negative for DVT What testing was considered but not performed or refused? (CT, X-rays, U/S, labs)? Why? @ -[None] What meds were considered but not given or refused? Why? @ -[None] Did you discuss the management of the patient with other professionals (professionals i.e. [facility] Gallo, SUPPLY ASSISTANT, lab, RT, psych nurse, administrator social welfare, meeting specialist, teacher, staff nuclear weapons officer, director of casework services)? Give summary @ -Case discussed with Dr. Wagner from [facility] who accepted admission. Patient started on IV antibiotics and x-ray ordered. Was smoking cessation discussed for >3mins.? @ -[No] Was critical care preformed (if so, how long)? @ -[No] Were there social determinants of health that impacted care today? How? (Homelessness, low income, unemployed, alcoholism, drug addiction, transportation, low edu. Level, literacy, decrease access to med. care, senior care, rehab)? @ -[No] Was there de-escalation of care discussed even if they declined (Discuss DNR or withdrawal of care, Hospice)? DNR status @ -[No] What co-morbidities impacted this encounter? (DM, HTN, Smoking, COPD, CAD, Cancer, CVA, ARF, Chemo, Hep., AIDS, mental health diagnosis, sleep apnea, morbid obesity)? @ -[None] Was patient admitted / discharged? Hospital course, mention meds given and route, prescriptions, significant lab abnormalities, going to OR and other pertinent info. @ -Patient was admitted. Patient was seen and evaluated for left lower extremity infection. Vitals are stable however patient is noted to have a fever of 100.8 at [facility]. Ultrasound performed to rule out DVT and was negative. White blood cell count increased from 4 days ago. X-ray of tib-fib ordered and patient started on IV antibiotics. Patient admitted to [facility]. Undiagnosed new problem with uncertain prognosis? @ -[No] Drug Therapy requiring intensive monitoring for toxicity (Heparin, Nitro, Insulin, Cardizem)? @ -[No] Were any procedures done? @ -[No] Diagnosis/symptom? @ -Cellulitis of left lower extremity Acute, or Chronic, or Acute on Chronic? @ -Acute Uncomplicated (without systemic symptoms) or Complicated (systemic symptoms)? @ -Complicated Side effects of treatment? @ -[No] Exacerbation, Progression, or Severe Exacerbation? @ -[No] Poses a threat to life or bodily function? How? (Chest pain, [place], [place], pneumonia, PE, COPD, DKA, ARF, appy, cholecystitis, CVA, Diverticulitis, Homicidal, Suicidal, threat to staff... and all critical care pts) @ -Yes - Lab Data Result diagrams: 11/05/23 11:55 11/05/23 11:55 Lab Results 11/05/23 11/05/23 Range/Units 11:55 11:55 WBC 13.3 H (3.8-10.6) k/uL RBC 3.21 L (4.30-5.90) m/uL Hgb 8.6 L (13.0-17.5) gm/dL Hct 27.5 L (39.0-53.0) % MCV 85.6 (80.0-100.0) fL MCH 26.9 (25.0-35.0) pg MCHC 31.5 (31.0-37.0) g/dL RDW 15.0 (11.5-15.5) % Plt Count 540 H (150-450) k/uL MPV 7.2 Neutrophils % 74 % Lymphocytes % 14 % Monocytes % 7 % Eosinophils % 3 % Basophils % 1 % Neutrophils # 9.8 H (1.3-7.7) k/uL Lymphocytes # 1.9 (1.0-4.8) k/uL Monocytes # 0.9 (0-1.0) k/uL Eosinophils # 0.4 (0-0.7) k/uL Basophils # 0.1 (0-0.2) k/uL Sodium 133 L (137-145) mmol/L Potassium 4.8 (3.5-5.1) mmol/L Chloride 100 (98-107) mmol/L Carbon Dioxide 30 (22-30) mmol/L Anion Gap 3 mmol/L BUN 9 (9-20) mg/dL Creatinine 0.61 L (0.66-1.25) mg/dL Est GFR (CKD-EPI)AfAm >90 (>60 ml/min/1.73 sqM) Est GFR (CKD-EPI)NonAf >90 (>60 ml/min/1.73 sqM) Glucose 88 (74-99) mg/dL Calcium 8.3 L (8.4-10.2) mg/dL Total Bilirubin 0.6 (0.2-1.3) mg/dL AST 30 (17-59) U/L ALT 18 (4-49) U/L Alkaline Phosphatase 143 H (38-126) U/L Total Protein 6.8 (6.3-8.2) g/dL Albumin 2.8 L (3.5-5.0) g/dL Disposition Clinical Impression: Cellulitis of left leg Disposition: ADMITTED IP TO THIS HOSP Condition: Stable Referrals: Kierra Fisher DO [Primary Care Provider] - 1-2 days Time of Disposition: 13:16
[2023-11-05 12:17] LABS: Basophils # (A) 0.1 k/uL (0-0.2); Basophils % (A) 1 %; Eosinophils # (A) 0.4 k/uL (0-0.7); Eosinophils % (A) 3 %; HCT 27.5 % (39.0-53.0); HGB 8.6 gm/dL (13.0-17.5); Lymphocytes # (A) 1.9 k/uL (1.0-4.8); Lymphocytes % (A) 14 %; MCH 26.9 pg (25.0-35.0); MCHC 31.5 g/dL (31.0-37.0); MCV 85.6 fL (80.0-100.0); Mean Platelet Volume 7.2; Monocytes # (A) 0.9 k/uL (0-1.0); Monocytes % (A) 7 %; Neutrophils # (A) 9.8 k/uL (1.3-7.7); Neutrophils % (A) 74 %; Platelet Count 540 k/uL (150-450); RBC 3.21 m/uL (4.30-5.90); WBC 13.3 k/uL (3.8-10.6)
[2023-11-05 12:23] LABS: ALT 18 U/L (4-49); AST 30 U/L (17-59); African American GFR (CKD) >90 (>60 ml/min/1.73 sqM); Albumin 2.8 g/dL (3.5-5.0); Alkaline Phosphatase 143 U/L (38-126); Anion Gap 3 mmol/L; Blood Urea Nitrogen 9 mg/dL (9-20); Calcium 8.3 mg/dL (8.4-10.2); Carbon Dioxide 30 mmol/L (22-30); Chloride 100 mmol/L (98-107); Glucose 88 mg/dL (74-99); Non-African American GFR(CKD) >90 (>60 ml/min/1.73 sqM); Potassium 4.8 mmol/L (3.5-5.1); Sodium 133 mmol/L (137-145); Total Bilirubin 0.6 mg/dL (0.2-1.3); Total Protein 6.8 g/dL (6.3-8.2)
--- NOTE | 2023-11-05 12:24 | US ---
EXAMINATION TYPE: US venous doppler duplex LE LT DATE OF EXAM: 11/05/2023 12:10 PM COMPARISON: NONE CLINICAL INDICATION: Male, 58 years old with history of left lower extremity edema; foot black histor y of DVT on blood thinners SIDE PERFORMED: Left TECHNIQUE: The lower extremity deep venous system is examined utilizing real time linear array sonog bernadine with graded compression, doppler sonography and color-flow sonography. VESSELS IMAGED: Common Femoral Vein Deep Femoral Vein Greater Saphenous Vein * Femoral Vein Popliteal Vein Small Saphenous Vein * Proximal Calf Veins (* superficial vessels) Left Leg: Negative for DVT IMPRESSION: 1. Left lower extremity ultrasound negative for deep venous thrombosis.
[2023-11-05] MEDS ORDERED: ONDANSETRON 4 MG/2 ML VIAL IVP PRN (13:01)
[2023-11-05] MEDS ORDERED: NALOXONE 0.4 MG/ML 1 ML VIAL IV PRN (13:01)
[2023-11-05] MEDS ORDERED: VANCOMYCIN IV PER PHARMACY 1 EACH MISC MISCELLANE PRN ×2 (13:03→13:04)
--- NOTE | 2023-11-05 13:28 | P.HPIM ---
History of Present Illness H&P Date: 11/05/23 Chief Complaint: Worsening lower extremity infection * 58-year-old gentleman with past medical history of peripheral arterial disease, history of left foot nonhealing wound, with cellulitis, s/p left common femoral artery endarterectomy and angioplasty left femoral to below-k nee popliteal artery bypass, history of gastrointestinal bleed, history of colon diverticulosis, COPD, history of depression presents to the emergency department with worsening lower extremity edema ongoing for 48 hours. Patient was hospitalized in September and was treated for left foot infection, noted to have DVT during that hospitalization. Patient coming in from [facility] short-term care for his wounds. Secondary to worsening swelling, left lower extremity erythema patient was sent in for further evaluation * Workup in ER included CBC which showed WBC of 13.3 hemoglobin 8.6 platelet count of 540, serum chemistry showed sodium 133 potassium 4.8 BUN 9 creatinine 0.61 * While in the ER and x-ray of the foot is requested, started on broad-spectrum antibiotic including Zosyn and vancomycin REVIEW OF SYSTEMS: Lower extremity swelling, fever, worsening left lower extrem ity infection, left lower extremity swelling CONSTITUTIONAL: No fever, no malaise, no fatigue. HEENT: No recent visual problems or hearing problems. Denied any sore throat. CARDIOVASCULAR: No chest pain, orthopnea, PND, no palpitations, no syncope. PULMONARY: No shortness of breath, no cough, no hemoptysis. GASTROINTESTINAL: No diarrhea, no nausea, no vomiting, no abdominal pain. NEUROLOGICAL: No headaches, no weakness, no numbness. HEMATOLOGICAL: Denies any bleeding or petechiae. GENITOURINARY: Denies any burning micturition, frequency, or urgency. MUSCULOSKELETAL/RHEUMATOLOGICAL: Lower extremity swelling, fever, worsening left lower extremity infection, left lower extremity swelling ENDOCRINE: Denies any polyuria or polydipsia. PHYSICAL EXAMINATION: GENERAL: The patient is alert and oriented x3, HEENT: Pupils are round and equally reacting to light. EOMI. CARDIOVASCULAR: S1 and S2 present. No murmurs, rubs, or gallops. PULMONARY: Chest is clear to auscultation, no wheezing or crackles. ABDOMEN: Soft, nontender, nondistended, normoactive bowel sounds. No palpable organomegaly. MUSCULOSKELETAL: No joint swelling or deformity. EXTREMITIES: Lower extremity edema NEUROLOGICAL: Gross neurological examination did not reveal any focal deficits. SKIN: Left lower extremity cellulitis, erythema left foot gangrene Assessment and plan * Left lower extremity cellulitis, left foot gangrene * Sepsis * Peripheral arterial disease s/p left femoral endarterectomy, patch ang ioplasty, left femoral to distal popliteal saphenous vein bypass * History of DVT * History of nonsustained V. tach * In regards to left lower extremity cellulitis, infectious disease consulted, x-ray left lower extremity ordered, venous ultrasound negative for DVT * In regards to sepsis, continue patient on broad-spectrum antibiotic Zosyn and vancomycin blood cultures requested in regards to peripheral arterial disease continue patient on aspirin, Lipitor, continue Xarelto * In regards to history of DVT continue patient on Xarelto in regards to history of nonsustained V. tach continue patient on metoprolol * Vascular surgery consulted * CODE STATUS full code Past Medical History Past Medical History: COPD, Vascular Disorder Additional Past Medical History / Comment(s): PVD, DVT R leg-recent R femoral popliteal bypass at [facility] 02/22/17, History of Any Multi-Drug Resistant Organisms: None Reported Past Surgical History: Orthopedic Surgery Additional Past Surgical History / Comment(s): R fem pop bypass 02/22/17 [facility], bilateral knee arthroscopic surgeries. Past Anesthesia/Blood Transfusion Reactions: No Reported Reaction Additional Past Anesthesia/Blood Transfusion Reaction / Comment(s): Pt is currently receiving blood-no reaction at this time. Past Psychological History: Anxiety, Depression Smoking Status: Current every day smoker Past Alcohol Use History: Daily, Heavy Past Drug Use History: None Reported - Past Family History Mother Family Medical History: Cancer, Hyperlipidemia Additional Family Medical History / Comment(s): Mother had skin cancer. She is living. Father Family Medical History: Hyperlipidemia, Hypertension Additional Family Medical History / Comment(s): Father has heart condition. Medications and Allergies Home Medications Medication Instructions Recorded Confirmed Type Aspirin 81 mg PO DAILY tab 09/10/23 11/05/23 Rx Atorvastatin [Lipitor] 40 mg PO HS tab 09/10/23 11/05/23 Rx Mirtazapine [Remeron] 15 mg PO HS tab 09/10/23 11/05/23 Rx Tamsulosin [Flomax] 0.4 mg PO PC-BRKFST #30 cap 09/10/23 11/05/23 Rx Rivaroxaban [Xarelto] 2.5 mg PO BID #60 tab 09/19/23 11/05/23 Rx Thiamine [Vitamin B-1] 100 mg PO DAILY #30 tab 09/19/23 11/05/23 Rx Acetaminophen Tab [Tylenol Tab] 1,000 mg PO ONETIME 11/05/23 11/05/23 History Acetaminophen [Tylenol Arthritis] 650 mg PO Q6H PRN 11/05/23 11/05/23 History Citalopram Hydrobromide [CeleXA] 40 mg PO HS 11/05/23 11/05/23 History DULoxetine HCL [Cymbalta] 30 mg PO DAILY@0700 11/05/23 11/05/23 History Famotidine [Pepcid] 10 mg PO DAILY 11/05/23 11/05/23 History Gabapentin 300 mg PO TID@0700,1300,1900 11/05/23 11/05/23 History Magnesium Oxide [Mag-Ox] 400 mg PO DAILY@0700 11/05/23 11/05/23 History Metoprolol Succinate (ER) [Toprol 25 mg PO DAILY 11/05/23 11/05/23 History Xl] Naloxone HCl [Narcan] 4 mg NASAL ONCE PRN 11/05/23 11/05/23 History Naloxone [Narcan] 0.4 mg IM ONCE PRN 11/05/23 11/05/23 History oxyCODONE-APAP 7.5-325MG [Percocet 1 tab PO Q6HR 11/05/23 11/05/23 History 7.5-325 mg] Allergies Allergy/AdvReac Type Severity Reaction Status Date / Time No Known Allergies Allergy Verified 11/05/23 11:04 Physical Exam Vitals: Vital Signs Temp Pulse Resp BP Pulse Ox 11/05/23 10:52 98.1 F 91 16 106/68 97 Intake and Output 11/04/23 11/05/23 11/05/23 22:59 06:59 14:59 Other: Weight 90.718 kg Results CBC & Chem 7: 11/05/23 11:55 11/05/23 11:55 Labs: Abnormal Lab Results - Last 24 Hours (Table) 11/05/23 11/05/23 Range/Units 11:55 11:55 WBC 13.3 H (3.8-10.6) k/uL RBC 3.21 L (4.30-5.90) m/uL Hgb 8.6 L (13.0-17.5) gm/dL Hct 27.5 L (39.0-53.0) % Plt Count 540 H (150-450) k/uL Neutrophils # 9.8 H (1.3-7.7) k/uL Sodium 133 L (137-145) mmol/L Creatinine 0.61 L (0.66-1.25) mg/dL Calcium 8.3 L (8.4-10.2) mg/dL Alkaline Phosphatase 143 H (38-126) U/L Albumin 2.8 L (3.5-5.0) g/dL
[2023-11-05] MEDS: GABAPENTIN 300 MG CAP PO SCH (14:26)
[2023-11-05] MEDS: PIPERACILLIN-TAZOBACTAM 3.375 GM in SODIUM CHLORIDE 0.9% 100 ML IVPB STA (14:27)
--- NOTE | 2023-11-05 16:10 | XR ---
EXAMINATION TYPE: XR tibia fibula LT DATE OF EXAM: 11/05/2023 COMPARISON: None HISTORY: Leg infection TECHNIQUE: 2 view left tibia and fibula FINDINGS: Subcutaneous air is present laterally at the left foreleg. Correlate for gas forming infect ion. No suspicious cortical erosions are evident. Vascular calcification is present. Irregular soft tissue changes are in the distal lateral foreleg. Small Achilles tendon calcaneal heel spur is present. IMPRESSION: 1. Correlate for gas forming infection along the lateral proximal foreleg. 2. Additional soft tissue injury is along the anterior distal foreleg and lateral distal foreleg.
[2023-11-05] MEDS: oxyCODONE-APAP 7.5-325MG 1 EACH TAB PO PRN (17:18)
[2023-11-05] MEDS: VANCOMYCIN 1,500 MG in SODIUM CHLORIDE 0.9% 500 ML 500 ML IVPB STA (17:52)
[2023-11-05] MEDS: SODIUM CHLORIDE 0.9% 1,000 ML IV SCH (17:54)
[2023-11-05] MEDS ORDERED: oxyCODONE-APAP 7.5-325MG 1 EACH TAB PO SCH (18:00)
[2023-11-05] MEDS: ATORVASTATIN 40 MG TAB PO SCH (20:45)
[2023-11-05] MEDS: CITALOPRAM HYDROBROMIDE 20 MG TAB PO SCH (20:45)
[2023-11-05] MEDS: CEFEPIME 2 GM in SODIUM CHLORIDE 0.9% 100 ML IVPB SCH (21:11)
[2023-11-05] MEDS: MIRTAZAPINE 15 MG TAB PO SCH (21:40)
[2023-11-05] MEDS: RIVAROXABAN 2.5 MG TABLET PO SCH (21:40)
--- NOTE | 2023-11-05 21:43 | P.CONS ---
History of Present Illness - Reason for Consult Consult date: 11/05/23 Left lower extremity cellulitis Requesting physician: Fredi Wagner - Chief Complaint Left leg pain swelling and redness x few days - History of Present Illness Patient is a 58-year-old male with a past medical history significant for COPD patient did have a history of left foot gangrene in this patient who is status post left femoral-popliteal bypass patient currently at the local long-term patient has been sent to the ER concerning for increasing swelling redness of the left lower extremity that apparently has been getting worse over the last weekend patient complaining of increasing drainage from the left leg wound small skin tear denies any foul-smelling drainage denies high-grade fever patient pain is mostly dull aching to sharp mild to moderate intensity without radiation with the send the patient has been evaluated on presentation to the hospital the patient was afebrile and no fever have recorded subsequently patient was not tachycardic hypotensive or hypoxic and did have marginal 13.3 creatinine 0.61 liver enzymes are normal electrolytes normal blood culture has been obtained patient was admitted to the hospital started on vancomycin and Zosyn infectious disease was consulted regarding antibiotic therapy Review of Systems Positive point and negatives has been mentioned in the HPI, complete review of systems was performed and all other systems are negative Past Medical History Past Medical History: COPD, Vascular Disorder Additional Past Medical History / Comment(s): PVD, DVT R leg-recent R femoral popliteal bypass at [facility] 02/22/17, History of Any Multi-Drug Resistant Organisms: None Reported Past Surgical History: Orthopedic Surgery Additional Past Surgical History / Comment(s): R fem pop bypass 02/22/17 [facility], bilateral knee arthroscopic surgeries. Past Anesthesia/Blood Transfusion Reactions: No Reported Reaction Additional Past Anesthesia/Blood Transfusion Reaction / Comm: Pt is currently receiving blood-no reaction at this time. Past Psychological History: Anxiety, Depression Smoking Status: Current every day smoker Past Alcohol Use History: Daily, Heavy Past Drug Use History: None Reported - Past Family History Mother Family Medical History: Cancer, Hyperlipidemia Additional Family Medical History / Comment(s): Mother had skin cancer. She is living. Father Family Medical History: Hyperlipidemia, Hypertension Additional Family Medical History / Comment(s): Father has heart condition. Medications and Allergies Home Medications Medication Instructions Recorded Confirmed Type Aspirin 81 mg PO DAILY tab 09/10/23 11/05/23 Rx Atorvastatin [Lipitor] 40 mg PO HS tab 09/10/23 11/05/23 Rx Mirtazapine [Remeron] 15 mg PO HS tab 09/10/23 11/05/23 Rx Tamsulosin [Flomax] 0.4 mg PO PC-BRKFST #30 cap 09/10/23 11/05/23 Rx Rivaroxaban [Xarelto] 2.5 mg PO BID #60 tab 09/19/23 11/05/23 Rx Thiamine [Vitamin B-1] 100 mg PO DAILY #30 tab 09/19/23 11/05/23 Rx Acetaminophen Tab [Tylenol] 1,000 mg PO ONETIME 11/05/23 11/05/23 History Acetaminophen [Tylenol Arthritis] 650 mg PO Q6H PRN 11/05/23 11/05/23 History Citalopram Hydrobromide [CeleXA] 40 mg PO HS 11/05/23 11/05/23 History DULoxetine HCL [Cymbalta] 30 mg PO DAILY@0700 11/05/23 11/05/23 History Famotidine [Pepcid] 10 mg PO DAILY 11/05/23 11/05/23 History Magnesium Oxide [Mag-Ox] 400 mg PO DAILY@0700 11/05/23 11/05/23 History Metoprolol Succinate (ER) [Toprol 25 mg PO DAILY 11/05/23 11/05/23 History XL] Naloxone HCl [Narcan] 4 mg NASAL ONCE PRN 11/05/23 11/05/23 History Naloxone [Narcan] 0.4 mg IM ONCE PRN 11/05/23 11/05/23 History Cefepime [Maxipime] 2 gm IVPB Q8H #63 each 11/08/23 Rx Gabapentin [Neurontin] 600 mg PO TID@0700,1300,1900 #30 11/08/23 Rx cap Vancomycin 1,500 mg IVPB Q8HR #63 each 11/08/23 Rx oxyCODONE-APAP 7.5-325MG [Percocet 1 tab PO Q12HR PRN 3 Days #0 11/08/23 11/05/23 Rx 7.5-325 mg] Allergies Allergy/AdvReac Type Severity Reaction Status Date / Time No Known Allergies Allergy Verified 11/05/23 11:04 Physical Exam Vitals: Vital Signs Temp Pulse Resp BP Pulse Ox 11/05/23 15:29 98.1 F 92 18 130/75 98 11/05/23 10:52 98.1 F 91 16 106/68 97 Intake and Output 11/05/23 11/05/23 11/05/23 06:59 14:59 22:59 Other: Weight 90.718 kg GENERAL DESCRIPTION: Middle-aged male lying in bed, no distress. No tachypnea or accessory muscle of respiration use. HEENT: Shows Pallor , no scleral icterus. Oral mucous membrane is dry. No ph aryngeal erythema or thrush NECK: Trachea central, no thyromegaly. LUNGS: Unlabored breathing. Clear to auscultation anteriorly. No wheeze or crackle. HEART: S1, S2, regular rate and rhythm. No loud murmur ABDOMEN: Soft, no tenderness , guarding or rigidity, no organomegaly EXTREMITIES: Left foot with necrotic skin did have swelling redness and some drainage from the wound to the left leg SKIN: No rash, no masses palpable. NEUROLOGICAL: The patient is awake, alert, oriented x3, mood and affect normal. Results CBC & Chem 7: 11/07/23 06:28 11/07/23 06:28 Labs: Abnormal Lab Results - Last 24 Hours (Table) 11/05/23 11/05/23 Range/Units 11:55 11:55 WBC 13.3 H (3.8-10.6) k/uL RBC 3.21 L (4.30-5.90) m/uL Hgb 8.6 L (13.0-17.5) gm/dL Hct 27.5 L (39.0-53.0) % Plt Count 540 H (150-450) k/uL Neutrophils # 9.8 H (1.3-7.7) k/uL Sodium 133 L (137-145) mmol/L Creatinine 0.61 L (0.66-1.25) mg/dL Calcium 8.3 L (8.4-10.2) mg/dL Alkaline Phosphatase 143 H (38-126) U/L Albumin 2.8 L (3.5-5.0) g/dL Assessment and Plan (1) Cellulitis of left foot Status: Acute Code(s): L03.116 - CELLULITIS OF LEFT LOWER LIMB SNOMED Code(s): 95791186253208075 (2) Cellulitis of left leg Status: Acute Code(s): L03.116 - CELLULITIS OF LEFT LOWER LIMB SNOMED Code(s): 53124759462635064 (3) Gangrene of left foot Status: Acute Code(s): I96 - GANGRENE, NOT ELSEWHERE CLASSIFIED SNOMED C ode(s): 84249323075243311 Plan: 1patient presented to hospital with increasing pain swelling redness to the left lower extremity in this patient noted to have left foot gangrene and recently did have a left lower extremity bypass surgery and also completed extensive course of IV antibiotic therapy now presenting with increasing drainage did have elevated white count concerning for wound infection and cellulitis we will need to cover for resistant gram-positive as well as gram- negative 2-await vascular surgery evaluation for possible debridement and deep culture 3-continue with the vancomycin however switch Zosyn to cefepime to decrease risk of nephrotoxicity We will follow on clinical condition and cultures to further adjust medication if needed Thank you for this consultation we will follow the patient along with you Dictation was produced using [employer] dictation software. please excuse any grammatical, word or spelling errors. Time with Patient: Greater than 30
[2023-11-05] MEDS ORDERED: PIPERACILLIN-TAZOBACTAM 3.375 GM in SODIUM CHLORIDE 0.9% 100 ML IVPB SCH (22:00)
[2023-11-06] MEDS: VANCOMYCIN 1,500 MG in SODIUM CHLORIDE 0.9% 500 ML 500 ML IVPB SCH (02:00)
[2023-11-06 06:55] LABS: Basophils # (A) 0.1 k/uL (0-0.2); Basophils % (A) 0 %; Eosinophils # (A) 0.3 k/uL (0-0.7); Eosinophils % (A) 3 %; HGB 8.6 gm/dL (13.0-17.5); Lymphocytes # (A) 1.7 k/uL (1.0-4.8); Lymphocytes % (A) 15 %; MCH 26.9 pg (25.0-35.0); MCHC 30.8 g/dL (31.0-37.0); MCV 87.3 fL (80.0-100.0); Mean Platelet Volume 7.1; Monocytes # (A) 0.6 k/uL (0-1.0); Monocytes % (A) 6 %; Neutrophils # (A) 8.4 k/uL (1.3-7.7); Neutrophils % (A) 74 %; Platelet Count 553 k/uL (150-450); RBC 3.21 m/uL (4.30-5.90); RDW 14.8 % (11.5-15.5); WBC 11.4 k/uL (3.8-10.6)
[2023-11-06 07:05] LABS: African American GFR (CKD) >90 (>60 ml/min/1.73 sqM); Anion Gap 6 mmol/L; Blood Urea Nitrogen 9 mg/dL (9-20); Calcium 8.3 mg/dL (8.4-10.2); Carbon Dioxide 25 mmol/L (22-30); Chloride 104 mmol/L (98-107); Glucose 95 mg/dL (74-99); Non-African American GFR(CKD) >90 (>60 ml/min/1.73 sqM); Potassium 4.3 mmol/L (3.5-5.1); Sodium 135 mmol/L (137-145)
[2023-11-06] MEDS: FAMOTIDINE 20 MG TAB PO SCH (08:11)
[2023-11-06] MEDS: THIAMINE 100 MG TAB PO SCH (08:11)
[2023-11-06] MEDS: ASPIRIN 81 MG PO SCH (08:11)
[2023-11-06] MEDS: METOPROLOL SUCCINATE (ER) 50 MG TAB.ER.24H PO SCH (08:11)
[2023-11-06] MEDS: TAMSULOSIN 0.4 MG CAP.ER.24H PO SCH (08:11)
[2023-11-06] MEDS: MAGNESIUM OXIDE 400 MG TAB PO SCH (08:11)
[2023-11-06] MEDS: DULoxetine HCL 30 MG CAPSULE.DR PO SCH (08:33)
[2023-11-06] MEDS: HYDROmorphone 0.5 MG/0.5 ML SYRINGE IVP PRN (09:24)
--- NOTE | 2023-11-06 12:10 | P.CONS ---
History of Present Illness - Reason for Consult Consult date: 11/06/23 wound care - History of Present Illness This is a 58-year-old patient with history of peripheral vascular disease. Patient had a femoropopliteal bypass at the end of August. Patient has a wound dehiscence of the medial distal incision. Nonhealing ulceration to the left left lateral ankle. And wet gangrene noted to the fourth and fifth digit of the left foot. Patient has significant amount of dry eschar gangrene to the dorsal and plantar aspect of the left foot. The left calf medial incisional ulceration cluster of 2 measuring approximately 1 x 1 x 1 cm. No granulation noted within the wound bed. Serous drainage present. Patient states that he receives wound care at the extended-care facility. Review Of Systems: Constitutional: No fever, no chills, no night sweats. No weight change. No weakness, fatigue or lethargy. No daytime sleepiness. Integumentary:reports wounds, no lesions. No rash or pruritus. No unusual bruising. No change in hair or nails. Physical exam: General Appearance: Alert, cooperative, no distress, appears stated age. Skin: See HPI all other Skin color, texture, tugor normal, no rashes or lesions. Neurologic: Alert oriented x3 Assessment: 1. Gangrene to the left foot 2. Nonhealing ulceration left calf with muscle involvement 3. Arthrosclerosis with ulceration of left ankle Plan: 1. Awaiting vascular recommendations. May apply honey gel to the left medial calf incisional ulceration and left lateral ankle ulceration. Thank you for the consultation any questions please contact the wound care center DNP note has been reviewed and discussed with Dr. Beal and the impression and plan of care has been directed as dictated. Past Medical History Past Medical History: COPD, Vascular Disorder Additional Past Medical History / Comment(s): PVD, DVT R leg-recent R femoral popliteal bypass at [facility] 02/22/17, History of Any Multi-Drug Resistant Organisms: None Reported Past Surgical History: Orthopedic Surgery Additional Past Surgical History / Comment(s): R fem pop bypass 02/22/[address] [facility], bilateral knee arthroscopic surgeries. Past Anesthesia/Blood Transfusion Reactions: No Reported Reaction Additional Past Anesthesia/Blood Transfusion Reaction / Comm: Pt is currently receiving blood-no reaction at this time. Past Psychological History: Anxiety, Depression Smoking Status: Current every day smoker Past Alcohol Use History: Daily, Heavy Past Drug Use History: None Reported - Past Family History Mother Family Medical History: Cancer, Hyperlipidemia Additional Family Medical History / Comment(s): Mother had skin cancer. She is living. Father Family Medical History: Hyperlipidemia, Hypertension Additional Family Medical History / Comment(s): Father has heart condition. Medications and Allergies Home Medications Medication Instructions Recorded Confirmed Type Aspirin 81 mg PO DAILY tab 09/10/23 11/05/23 Rx Atorvastatin [Lipitor] 40 mg PO HS tab 09/10/23 11/05/23 Rx Mirtazapine [Remeron] 15 mg PO HS tab 09/10/23 11/05/23 Rx Tamsulosin [Flomax] 0.4 mg PO PC-BRKFST #30 cap 09/10/23 11/05/23 Rx Rivaroxaban [Xarelto] 2.5 mg PO BID #60 tab 09/19/23 11/05/23 Rx Thiamine [Vitamin B-1] 100 mg PO DAILY #30 tab 09/19/23 11/05/23 Rx Acetaminophen Tab [Tylenol Tab] 1,000 mg PO ONETIME 11/05/23 11/05/23 History Acetaminophen [Tylenol Arthritis] 650 mg PO Q6H PRN 11/05/23 11/05/23 History Citalopram Hydrobromide [CeleXA] 40 mg PO HS 11/05/23 11/05/23 History DULoxetine HCL [Cymbalta] 30 mg PO DAILY@0700 11/05/23 11/05/23 History Famotidine [Pepcid] 10 mg PO DAILY 11/05/23 11/05/23 History Gabapentin 300 mg PO TID@0700,1300,1900 11/05/23 11/05/23 History Magnesium Oxide [Mag-Ox] 400 mg PO DAILY@0700 11/05/23 11/05/23 History Metoprolol Succinate (ER) [Toprol 25 mg PO DAILY 11/05/23 11/05/23 History Xl] Naloxone HCl [Narcan] 4 mg NASAL ONCE PRN 11/05/23 11/05/23 History Naloxone [Narcan] 0.4 mg IM ONCE PRN 11/05/23 11/05/23 History oxyCODONE-APAP 7.5-325MG [Percocet 1 tab PO Q6HR 11/05/23 11/05/23 History 7.5-325 mg] Allergies Allergy/AdvReac Type Severity Reaction Status Date / Time No Known Allergies Allergy Verified 11/05/23 11:04 Physical Exam Vitals: Vital Signs Temp Pulse Pulse Resp BP BP Pulse Ox 11/06/23 07:00 98.2 F 97 128/72 99 11/06/23 01:57 98.2 F 91 16 124/74 100 11/05/23 20:20 97.9 F 79 16 128/74 100 11/05/23 15:29 98.1 F 92 18 130/75 98 Intake and Output 11/05/23 11/06/23 11/06/23 22:59 06:59 14:59 Intake Total 500 240 Output Total 640 800 675 Balance -140 -800 -435 Intake: Intake, IV Titration 500 Amount Vancomycin 1,500 mg In 500 Sodium Chloride 0.9% 500 ml 500 ml @ 167 mls/hr IVPB Q8H [facility] Rx#: [id number] Oral 240 Output: Urine 640 800 675 Other: Voiding Method Urinal Urinal Weight 90.718 kg Results CBC & Chem 7: 11/06/23 06:24 11/06/23 06:24 Labs: Abnormal Lab Results - Last 24 Hours (Table) 11/05/23 11/05/23 11/06/23 Range/Units 11:55 11:55 06:24 WBC 13.3 H 11.4 H (3.8-10.6) k/uL RBC 3.21 L 3.21 L (4.30-5.90) m/uL Hgb 8.6 L 8.6 L (13.0-17.5) gm/dL Hct 27.5 L 28.0 L (39.0-53.0) % MCHC 30.8 L (31.0-37.0) g/dL Plt Count 540 H 553 H (150-450) k/uL Neutrophils # 9.8 H 8.4 H (1.3-7.7) k/uL Sodium 133 L (137-145) mmol/L Creatinine 0.61 L (0.66-1.25) mg/dL Calcium 8.3 L (8.4-10.2) mg/dL Alkaline Phosphatase 143 H (38-126) U/L Albumin 2.8 L (3.5-5.0) g/dL 11/06/23 Range/Units 06:24 WBC (3.8-10.6) k/uL RBC (4.30-5.90) m/uL Hgb (13.0-17.5) gm/dL Hct (39.0-53.0) % MCHC (31.0-37.0) g/dL Plt Count (150-450) k/uL Neutrophils # (1.3-7.7) k/uL Sodium 135 L (137-145) mmol/L Creatinine 0.63 L (0.66-1.25) mg/dL Calcium 8.3 L (8.4-10.2) mg/dL Alkaline Phosphatase (38-126) U/L Albumin (3.5-5.0) g/dL Assessment and Plan (1) Gangrene of left foot Current Visit: Yes Status: Acute Code(s): I96 - GANGRENE, NOT ELSEWHERE CLASSIFIED SNOMED Code(s): 43175651486752707 (2) 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
--- NOTE | 2023-11-06 12:27 | P.PN ---
Subjective Progress Note Date: 11/06/23 * 58-year-old gentleman with past medical history of peripheral arterial disease, history of left foot nonhealing wound, with cellulitis, s/p left common femoral artery endarterectomy and angioplasty left femoral to below- knee popliteal artery bypass, history of gastrointestinal bleed, history of colon diverticulosis, COPD, history of depression presents to the emergency department with worsening lower extremity edema ongoing for 48 hours. Patient was hospitalized in September and was treated for left foot infection, noted to have DVT during that hospitalization. Patient coming in from [facility] for his wounds. Secondary to worsening swelling, left lower extremity erythema patient was sent in for further evaluation * Workup in ER included CBC which showed WBC of 13.3 hemoglobin 8.6 platelet count of 540, serum chemistry showed sodium 133 potassium 4.8 BUN 9 creatinine 0.61 * While in the ER and x-ray of the foot is requested, started on broad-spectrum antibiotic including Zosyn and vancomycin * 11/06/23: Patient seen and evaluated at bedside, appreciate input from infect ious disease, continue patient on broad-spectrum antibiotics on cefepime and vancomycin, x-ray of the face shows subcutaneous air laterally at the left lateral foreleg. Blood work reviewed WBC 11.4 trending down hemoglobin 8.6 serum chemistry reviewed. Potential need for amputation discussed with patient down the line, at this time patient adamantly refusing. REVIEW OF SYSTEMS: Lower extremity swelling, fever, worsening left lower extremity infection, left lower extremity swelling CONSTITUTIONAL: No fever, no malaise, no fatigue. HEENT: No recent visual problems or hearing problems. Denied any sore throat. CARDIOVASCULAR: No chest pain, orthopnea, PND, no palpitations, no syncope. PULMONARY: No shortness of breath, no cough, no hemoptysis. GASTROINTESTINAL: No diarrhea, no nausea, no vomiting, no abdominal pain. NEUROLOGICAL: No headaches, no weakness, no numbness. HEMATOLOGICAL: Denies any bleeding or petechiae. GENITOURINARY: Denies any burning micturition, frequency, or urgency. MUSCULOSKELETAL/RHEUMATOLOGICAL: Lower extremity swelling, fever, worsening left lower extremity infection, left lower extremity swelling ENDOCRINE: Denies any polyuria or polydipsia. PHYSICAL EXAMINATION: GENERAL: The patient is alert and oriented x3, HEENT: Pupils are round and equally reacting to light. EOMI. CARDIOVASCULAR: S1 and S2 present. No murmurs, rubs, or gallops. PULMONARY: Chest is clear to auscultation, no wheezing or crackles. ABDOMEN: Soft, nontender, nondistended, normoactive bowel sounds. No palpable organomegaly. MUSCULOSKELETAL: No joint swelling or deformity. EXTREMITIES: Lower extremity edema NEUROLOGICAL: Gross neurological examination did not reveal any focal deficits. SKIN: Left lower extremity cellulitis, erythema left foot gangrene Assessment and plan * Left lower extremity cellulitis, left foot gangrene * Sepsis * Peripheral arterial disease s/p left femoral endarterectomy, patch angioplasty, left femoral to distal popliteal saphenous vein bypass * History of DVT * History of nonsustained V. tach * In regards to left lower extremity cellulitis, infectious disease consulted, x-ray left lower extremity reviewed, venous ultrasound negative for DVT * In regards to sepsis, continue patient on broad-spectrum antibiotic cefepime and vancomycin day 2 * blood cultures ordered * in regards to peripheral arterial disease continue patient on aspirin, Lipitor, continue Xarelto * In regards to history of DVT continue patient on Xarelto in regards to history of nonsustained V. tach continue patient on metoprolol * Vascular surgery consulted, will need outpatient follow-up Objective - Vital Signs Vital signs: Vital Signs Temp 98.2 F 11/06/23 07:00 Pulse 97 11/06/23 07:00 Resp 16 11/06/23 01:57 BP 128/72 11/06/23 07:00 Pulse Ox 99 11/06/23 07:00 FiO2 Intake & Output 11/05/23 11/06/23 11/06/23 18:59 06:59 18:59 Intake Total 500 Output Total 1440 Balance -940 Weight 90.718 kg 90.718 kg Intake: Intake, IV Titration 500 Amount Vancomycin 1,500 mg In 500 Sodium Chloride 0.9% 500 ml 500 ml @ 167 mls/hr IVPB Q8H [facility] Rx#: [id number] Output: Urine 1440 Other: Voiding Method Urinal - Labs CBC & Chem 7: 11/06/23 06:24 11/06/23 06:24 Labs: Abnormal Lab Results - Last 24 Hours (Table) 11/05/23 11/05/23 11/06/23 Range/Units 11:55 11:55 06:24 WBC 13.3 H 11.4 H (3.8-10.6) k/uL RBC 3.21 L 3.21 L (4.30-5.90) m/uL Hgb 8.6 L 8.6 L (13.0-17.5) gm/dL Hct 27.5 L 28.0 L (39.0-53.0) % MCHC 30.8 L (31.0-37.0) g/dL Plt Count 540 H 553 H (150-450) k/uL Neutrophils # 9.8 H 8.4 H (1.3-7.7) k/uL Sodium 133 L (137-145) mmol/L Creatinine 0.61 L (0.66-1.25) mg/dL Calcium 8.3 L (8.4-10.2) mg/dL Alkaline Phosphatase 143 H (38-126) U/L Albumin 2.8 L (3.5-5.0) g/dL 11/06/23 Range/Units 06:24 WBC (3.8-10.6) k/uL RBC (4.30-5.90) m/uL Hgb (13.0-17.5) gm/dL Hct (39.0-53.0) % MCHC (31.0-37.0) g/dL Plt Count (150-450) k/uL Neutrophils # (1.3-7.7) k/uL Sodium 135 L (137-145) mmol/L Creatinine 0.63 L (0.66-1.25) mg/dL Calcium 8.3 L (8.4-10.2) mg/dL Alkaline Phosphatase (38-126) U/L Albumin (3.5-5.0) g/dL
--- NOTE | 2023-11-06 15:18 | P.GSCN ---
History of Present Illness Consult date: 11/06/23 Reason for Consult: Peripheral arterial disease status post left femoropopliteal bypass Requesting physician: Fredi Wagner History of present illness: This is a pleasant 58-year-old male with a history of peripheral arterial disease and critical limb ischemia of the left lower extremity who underwent left common femoral endarterectomy and femoral to below the knee popliteal artery bypass and left femoral popliteal bypass balloon angioplasty on 09/15/[address] Payne. Patient has been [facility] and getting wound care there. Patient has had increased swelling of that left lower extremity and pain so came in for further evaluation. He states he does not have much pain in the foot it is mostly in his rivera. He is currently aspirin 81 mg and Xarelto 2.5 mg twice daily. He had a venous duplex of the left lower extremity that was negative for DVT. X-ray reports correlate for gas-forming infection along the lateral proximal foreleg. Additional soft tissue injury is along the anterior distal foreleg and lateral distal foreleg. He denies any fevers, chills, body aches, abdominal pain, nausea vomiting, shortness of breath or chest pain. Review of Systems A 14 point review systems was completed all pertinent positives and negatives as stated in the HPI. Past Medical History Past Medical History: COPD, Vascular Disorder Additional Past Medical History / Comment(s): PVD, DVT R leg-recent R femoral popliteal bypass at [facility] 02/22/17, History of Any Multi-Drug Resistant Organisms: None Reported Past Surgical History: Orthopedic Surgery Additional Past Surgical History / Comment(s): R fem pop bypass 02/22/17 [facility], bilateral knee arthroscopic surgeries. Past Anesthesia/Blood Transfusion Reactions: No Reported Reaction Additional Past Anesthesia/Blood Transfusion Reaction / Comm: Pt is currently receiving blood-no reaction at this time. Past Psychological History: Anxiety, Depression Smoking Status: Current every day smoker Past Alcohol Use History: Daily, Heavy Past Drug Use History: None Reported - Past Family History Mother Family Medical History: Cancer, Hyperlipidemia Additional Family Medical History / Comment(s): Mother had skin cancer. She is living. Father Family Medical History: Hyperlipidemia, Hypertension Additional Family Medical History / Comment(s): Father has heart condition. Medications and Allergies Home Medications Medication Instructions Recorded Confirmed Type RX: Aspirin 81 mg PO DAILY tab 09/10/23 11/05/23 Rx RX: Atorvastatin [Lipitor] 40 mg PO HS tab 09/10/23 11/05/23 Rx RX: Mirtazapine [Remeron] 15 mg PO HS tab 09/10/23 11/05/23 Rx RX: Tamsulosin [Flomax] 0.4 mg PO PC-BRKFST #30 cap 09/10/23 11/05/23 Rx RX: Rivaroxaban [Xarelto] 2.5 mg PO BID #60 tab 09/19/23 11/05/23 Rx RX: Thiamine [Vitamin B-1] 100 mg PO DAILY #30 tab 09/19/23 11/05/23 Rx Acetaminophen Tab [Tylenol Tab] 1,000 mg PO ONETIME 11/05/23 11/05/23 History Acetaminophen [Tylenol Arthritis] 650 mg PO Q6H PRN 11/05/23 11/05/23 History Citalopram Hydrobromide [CeleXA] 40 mg PO HS 11/05/23 11/05/23 History DULoxetine HCL [Cymbalta] 30 mg PO DAILY@0700 11/05/23 11/05/23 History Famotidine [Pepcid] 10 mg PO DAILY 11/05/23 11/05/23 History Magnesium Oxide [Mag-Ox] 400 mg PO DAILY@0700 11/05/23 11/05/23 History Metoprolol Succinate (ER) [Toprol 25 mg PO DAILY 11/05/23 11/05/23 History Xl] Naloxone HCl [Narcan] 4 mg NASAL ONCE PRN 11/05/23 11/05/23 History Naloxone [Narcan] 0.4 mg IM ONCE PRN 11/05/23 11/05/23 History RX: Gabapentin 300 mg PO TID@0700,1300,1900 11/05/23 11/05/23 History oxyCODONE-APAP 7.5-325MG [Percocet 1 tab PO Q6HR 11/05/23 11/05/23 History 7.5-325 mg] Allergies Allergy/AdvReac Type Severity Reaction Status Date / Time No Known Allergies Allergy Verified 11/05/23 11:04 Surgical - Exam Vital Signs Temp Pulse Resp BP Pulse Ox 98.1 F 91 16 106/68 97 11/05/23 10:52 11/05/23 10:52 11/05/23 10:52 11/05/23 10:52 11/05/23 10:52 General appearance: The patient is alert, oriented, appears in no acute distr ess. HET: Head is normocephalic and atraumatic. Pupils are equal and reactive. Neck: Supple. Heart: Regular. Lungs: Equal expansion, normal respiratory effort. Abdomen: Soft, nontender, nondistended. Extremities: Left lower extremity swelling, bypass incision to medial aspect of lower extremity with dehiscence. Gangrene left foot, some noted area of drainage between fourth and fifth toes. Nonhealing ulcer to left lateral ankle. Doppler signal present of bypass graft. Neurological: No focal deficits. Strength and sensation are grossly intact. Results - Labs 11/06/23 06:24 11/06/23 06:24 Abnormal Lab Results - Last 24 Hours (Table) 11/05/23 11/05/23 11/06/23 Range/Units 11:55 11:55 06:24 WBC 13.3 H 11.4 H (3.8-10.6) k/uL RBC 3.21 L 3.21 L (4.30-5.90) m/uL Hgb 8.6 L 8.6 L (13.0-17.5) gm/dL Hct 27.5 L 28.0 L (39.0-53.0) % MCHC 30.8 L (31.0-37.0) g/dL Plt Count 540 H 553 H (150-450) k/uL Neutrophils # 9.8 H 8.4 H (1.3-7.7) k/uL Sodium 133 L (137-145) mmol/L Creatinine 0.61 L (0.66-1.25) mg/dL Calcium 8.3 L (8.4-10.2) mg/dL Alkaline Phosphatase 143 H (38-126) U/L Albumin 2.8 L (3.5-5.0) g/dL 11/06/23 Range/Units 06:24 WBC (3.8-10.6) k/uL RBC (4.30-5.90) m/uL Hgb (13.0-17.5) gm/dL Hct (39.0-53.0) % MCHC (31.0-37.0) g/dL Plt Count (150-450) k/uL Neutrophils # (1.3-7.7) k/uL Sodium 135 L (137-145) mmol/L Creatinine 0.63 L (0.66-1.25) mg/dL Calcium 8.3 L (8.4-10.2) mg/dL Alkaline Phosphatase (38-126) U/L Albumin (3.5-5.0) g/dL Diabetes panel 11/05/23 11/06/23 Range/Units 11:55 06:24 Sodium 133 L 135 L (137-145) mmol/L Potassium 4.8 4.3 (3.5-5.1) mmol/L Chloride 100 104 (98-107) mmol/L Carbon Dioxide 30 25 (22-30) mmol/L BUN 9 9 (9-20) mg/dL Creatinine 0.61 L 0.63 L (0.66-1.25) mg/dL Glucose 88 95 (74-99) mg/dL Calcium 8.3 L 8.3 L (8.4-10.2) mg/dL AST 30 (17-59) U/L ALT 18 (4-49) U/L Alkaline Phosphatase 143 H (38-126) U/L Total Protein 6.8 (6.3-8.2) g/dL Albumin 2.8 L (3.5-5.0) g/dL Calcium panel 11/05/23 11/06/23 Range/Units 11:55 06:24 Calcium 8.3 L 8.3 L (8.4-10.2) mg/dL Albumin 2.8 L (3.5-5.0) g/dL Pituitary panel 11/05/23 11/06/23 Range/Units 11:55 06:24 Sodium 133 L 135 L (137-145) mmol/L Potassium 4.8 4.3 (3.5-5.1) mmol/L Chloride 100 104 (98-107) mmol/L Carbon Dioxide 30 25 (22-30) mmol/L BUN 9 9 (9-20) mg/dL Creatinine 0.61 L 0.63 L (0.66-1.25) mg/dL Glucose 88 95 (74-99) mg/dL Calcium 8.3 L 8.3 L (8.4-10.2) mg/dL Adrenal panel 11/05/23 11/06/23 Range/Units 11:55 06:24 Sodium 133 L 135 L (137-145) mmol/L Potassium 4.8 4.3 (3.5-5.1) mmol/L Chloride 100 104 (98-107) mmol/L Carbon Dioxide 30 25 (22-30) mmol/L BUN 9 9 (9-20) mg/dL Creatinine 0.61 L 0.63 L (0.66-1.25) mg/dL Glucose 88 95 (74-99) mg/dL Calcium 8.3 L 8.3 L (8.4-10.2) mg/dL Total Bilirubin 0.6 (0.2-1.3) mg/dL AST 30 (17-59) U/L ALT 18 (4-49) U/L Alkaline Phosphatase 143 H (38-126) U/L Total Protein 6.8 (6.3-8.2) g/dL Albumin 2.8 L (3.5-5.0) g/dL - Imaging Comments: X-ray reports correlate for gas-forming infection along the lateral proximal foreleg. Additional soft tissue injury is along the anterior distal foreleg and lateral distal foreleg Venous duplex negative for DVT Assessment and Plan Assessment: 1. History of peripheral arterial disease with critical limb ischemia of the left lower extremity status post left common femoral endarterectomy and femoral to below-knee popliteal artery bypass 2. 2. Left lower extremity swelling 3. Dehiscence of left medial calf incision from increased edema 4. Gangrene left foot 5. Ulceration left ankle Plan: 1. Consult to wound clinic for local wound care 2. Wound cultures obtained 3. Continue with recommendations from infectious disease 4. Continue with outpatient wound care 5. Discussed with patient there is a likely possibility that he will require a below the knee amputation. 6. No plans on surgical intervention from vascular surgery at this time Thank you for this consultation, we will continue to follow. The impression and plan of care has been dictated as directed. I performed a history and examination of this patient, discussed the same with the dictator. I agree with the dictator's note ,documented as a scribe. Any additional findings or plans will be noted.
[2023-11-06] MEDS: VANCOMYCIN TROUGH DUE 1 EACH MISC MISCELLANE ONE (17:59)
[2023-11-07 07:07] LABS: African American GFR (CKD) >90 (>60 ml/min/1.73 sqM); Anion Gap 7 mmol/L; Blood Urea Nitrogen 7 mg/dL (9-20); Calcium 8.6 mg/dL (8.4-10.2); Carbon Dioxide 25 mmol/L (22-30); Chloride 103 mmol/L (98-107); Glucose 93 mg/dL (74-99); Non-African American GFR(CKD) >90 (>60 ml/min/1.73 sqM); Potassium 3.9 mmol/L (3.5-5.1); Sodium 135 mmol/L (137-145)
[2023-11-07 07:09] LABS: HCT 27.7 % (39.0-53.0); HGB 8.6 gm/dL (13.0-17.5); MCH 26.9 pg (25.0-35.0); MCV 86.7 fL (80.0-100.0); Mean Platelet Volume 7.5; Platelet Count 583 k/uL (150-450); RDW 14.7 % (11.5-15.5); WBC 12.6 k/uL (3.8-10.6)
--- NOTE | 2023-11-07 09:55 | P.PN ---
Subjective 58-year-old gentleman with past medical history of peripheral arterial disease, history of left foot nonhealing wound, with cellulitis, s/p left common femoral artery endarterectomy and angioplasty left femoral to below-knee popliteal artery bypass, history of gastrointestinal bleed, history of colon diverticulosis, COPD, history of depression presents to the emergency department with worsening lower extremity edema ongoing for 48 hours. Patient was hospitalized in September and was treated for left foot infection, noted to have DVT during that hospitalization. Patient coming in from [facility] short- term care for his wounds. Secondary to worsening swelling, left lower extremity erythema patient was sent in for further evaluation Workup in ER included CBC which showed WBC of 13.3 hemoglobin 8.6 platelet count of 540, serum chemistry showed sodium 133 potassium 4.8 BUN 9 creatinine 0.61 While in the ER and x-ray of the foot is requested, started on broad-spectrum antibiotic including Zosyn and vancomycin 11/06/23: Patient seen and evaluated at bedside, appreciate input from infectious disease, continue patient on broad-spectrum antibiotics on cefepime and vancomycin, x-ray of the face shows subcutaneous air laterally at the left lateral foreleg. Blood work reviewed WBC 11.4 trending down hemoglobin 8.6 serum chemistry reviewed. Potential need for amputation discussed with patient down the line, at this time patient adamantly refusing. 11/07/2023 Patient awake alert She has left leg swelling and wounds with some purulent discharge, he has a wound below the left knee medially and another 1 in the ankle and foot, he has some finger gangrene changes. Dressing is placed in pain and can move his legs and sit up on the bed age. Patient denies diarrhea or any other new complaint Hemodynamically stable WBC is 12.6 which is stable, hemoglobin stable at 13.6, BMP is unremarkable Wound cultures, gram-negative bacilli and MRSA Remains on IV cefepime and IV vancomycin Vascular surgery team already evaluated the patient, as per recommendation patient will likely possibility that there will need for below-knee amputation Objective - Vital Signs Vital signs: Vital Signs Temp 97.8 F 11/07/23 02:00 Pulse 95 11/07/23 02:00 Resp 16 11/07/23 02:00 BP 96/56 11/07/23 02:00 Pulse Ox 95 11/07/23 02:00 FiO2 Intake & Output 0411/07/23 11/07/23 18:59 06:59 18:59 Intake Total 1200 1150 Output Total 1925 550 Balance -725 1150 -550 Intake: Intake, IV Titration 1150 Amount Cefepime 2 gm In Sodium 650 Chloride 0.9% 100 ml @ 25 mls/hr IVPB Q8H [facility]LV[facility] Rx#: [id number] Vancomycin 1,500 mg In 500 Sodium Chloride 0.9% 500 ml 500 ml @ 167 mls/hr IVPB Q8H [facility] Rx#: [id number] Oral 1200 Output: Urine 1925 550 Other: Voiding Method Urinal # Voids 1 # Bowel Movements 1 - Exam GENERAL: The patient is alert and oriented x3, not in any acute distress. Well developed, well nourished. HEENT: Pupils are round and equally reacting to light. EOMI. No scleral icterus. No conjunctival pallor. Normocephalic, atraumatic. No pharyngeal erythema. No thyromegaly. CARDIOVASCULAR: S1 and S2 present. No murmurs, rubs, or gallops. PULMONARY: Chest is clear to auscultation, no wheezing , no crackles. ABDOMEN: Soft, nontender, nondistended, normoactive bowel sounds. No palpable organomegaly. MUSCULOSKELETAL: No joint swelling or deformity. -EXTREMITIES: No cyanosis, clubbing, or pedal edema. left leg swelling and wounds with some purulent discharge, he has a wound below the left knee medially and another 1 in the ankle and foot, he has some finger gangrene changes. Dressing is placed NEUROLOGICAL: Gross neurological examination did not reveal any focal deficits. SKIN: No rashes. no petechiae. - Labs CBC & Chem 7: 11/07/23 06:28 11/07/23 06:28 Labs: Abnormal Lab Results - Last 24 Hours (Table) 11/07/23 11/07/23 Range/Units 06:28 06:28 WBC 12.6 H (3.8-10.6) k/uL RBC 3.20 L (4.30-5.90) m/uL Hgb 8.6 L (13.0-17.5) gm/dL Hct 27.7 L (39.0-53.0) % Plt Count 583 H (150-450) k/uL Sodium 135 L (137-145) mmol/L BUN 7 L (9-20) mg/dL Creatinine 0.62 L (0.66-1.25) mg/dL Microbiology - Last 24 Hours (Table) 11/06/23 09:30 Gram Stain - Preliminary Leg - Left Wound Culture - Preliminary Gram Neg Bacilli Presumptive MRSA 11/06/23 09:30 Gram Stain - Preliminary Foot - Left 11/05/23 14:00 Blood Culture - Preliminary Blood Assessment and Plan Assessment: Left lower extremity cellulitis, left foot gangrene Sepsis Peripheral arterial disease s/p left femoral endarterectomy, patch angioplasty, left femoral to distal popliteal saphenous vein bypass History of DVT History of nonsustained V. tach Plan: Follow-up with cultures Continue with IV vancomycin and IV cefepime ID and vascular surgery team on the case Wound team consult Pain management Patient marked my surgical debridement or BKA per vascular surgery team recommendation Labs and medication were reviewed.. Continue same treatment. Continue with symptomatic treatment. Resume home medication. Monitor labs and vitals. DVT and GI prophylaxis. Further recommendations as per clinical course of the patient DVT prophylaxis: Xarelto GI Prophylaxis: Pepcid PT/OT: Pending, patient is from [facility] which she plans to go back upon discharge Prognosis is guarded
--- NOTE | 2023-11-07 12:05 | P.PN ---
Subjective Progress Note Date: 11/07/23 Principal diagnosis: Peripheral arterial disease, gangrene foot Patient is seen and examined today as a follow-up. He is sitting up at the bedside with his legs dangling on the floor. Left lower extremity with swelling and erythema. Dressings intact with drainage noted. Patient is afebrile. Wound culture preliminary gram-negative bacilli, presumptive MRSA. Patient continues to complain of left leg pain when elevated and feels better when it is dependent. Objective - Vital Signs Vital signs: Vital Signs Temp 97.8 F 11/07/23 02:00 Pulse 95 11/07/23 02:00 Resp 16 11/07/23 02:00 BP 96/56 11/07/23 02:00 Pulse Ox 95 11/07/23 02:00 FiO2 Intake & Output 11/06/23 11/07/23 11/07/23 18:59 06:59 18:59 Intake Total 1200 1150 Output Total 1925 550 Balance -725 1150 -550 Intake: Intake, IV Titration 1150 Amount Cefepime 2 gm In Sodium 650 Chloride 0.9% 100 ml @ 25 mls/hr IVPB Q8H [facility] Rx#: [id number] Vancomycin 1,500 mg In 500 Sodium Chloride 0.9% 500 ml 500 ml @ 167 mls/hr IVPB Q8H [facility]LV[facility] Rx#: [id number] Oral 1200 Output: Urine 1925 550 Other: Voiding Method Urinal # Voids 1 # Bowel Movements 1 - Exam General appearance: The patient is alert, oriented, appears in no acute distress. HET: Head is normocephalic and atraumatic. Pupils are equal and reactive. Neck: Supple. Abdomen: Soft, nondistended. Extremities: Left lower extremity swelling, erythema. Good capillary refill. Medial surgical incision with dressing with serosanguineous drainage noted. Left foot with dressing intact. Sensorimotor intact. Neurological: No focal deficits. Alert and oriented.. - Labs CBC & Chem 7: 11/07/23 06:28 11/07/23 06:28 Labs: Abnormal Lab Results - Last 24 Hours (Table) 11/07/23 11/07/23 Range/Units 06:28 06:28 WBC 12.6 H (3.8-10.6) k/uL RBC 3.20 L (4.30-5.90) m/uL Hgb 8.6 L (13.0-17.5) gm/dL Hct 27.7 L (39.0-53.0) % Plt Count 583 H (150-450) k/uL Sodium 135 L (137-145) mmol/L BUN 7 L (9-20) mg/dL Creatinine 0.62 L (0.66-1.25) mg/dL Microbiology - Last 24 Hours (Table) 11/06/23 09:30 Gram Stain - Preliminary Leg - Left 11/06/23 09:30 Gram Stain - Preliminary Foot - Left 11/05/23 14:00 Blood Culture - Preliminary Blood Assessment and Plan Assessment: 1. History of peripheral arterial disease with critical limb ischemia of the left lower extremity status post left common femoral endarterectomy and femoral to below-knee popliteal artery bypass 2. Left lower extremity swelling 3. Dehiscence of left medial calf incision from increased edema 4. Gangrene left foot 5. Ulceration left ankle Plan: 1. Consult to wound clinic for local wound care 2. Wound cultures obtained 3. Continue with recommendations from infectious disease 4. Continue with outpatient wound care 5. Discussed with patient there is a likely possibility that he will require a below the knee amputation, this will be further discussed as an outpatient if patient does not heal. 6. No plans on surgical intervention from vascular surgery at this time 7. Will plan for PICC line placement if ordered Thank you for this consultation, patient is cleared from vascular surgery for discharge. The impression and plan of care has been dictated as directed. Dr. Stearns I performed a history and examination of this patient, discussed the same with the dictator. I agree with the dictator's note ,documented as a scribe. Any additional findings or plans will be noted.
[2023-11-07] MEDS: GABAPENTIN 300 MG CAP PO SCH (12:44)
--- NOTE | 2023-11-08 09:03 | P.OP ---
Date of Procedure: 11/08/23 Description of Procedure: Date of Procedure: Preoperative Diagnosis: Need for long-term IV antibiotic access. Postoperative Diagnosis: Same. Procedure(s) Performed: Ultrasound-guided cannulation right basilic vein. Insertion of peripherally inserted central catheter under fluoroscopic guidance. Anesthesia: local (1% Xylocaine.) Surgeon: Daryn Estimated Blood Loss (ml): 5 IV fluids (ml): 0 Urine output (ml): 0 Pathology: none sent Condition: stable Disposition: no change Indications for Procedure: Patient is a 58-year-old male with lower extremity foot infection recommended to have antibiotics. Patient will require long-term IV antibiotics as an outpatient patient is offered a PICC line to allow for intravenous administration of antibiotics. Description of Procedure: Patient was brought to the special procedure suite. The right upper extremity sterilely prepped and draped in usual manner. Ultrasound was utilized to identify the basilic vein which was normally compressible free of visible thrombus. Permenant image was stored. 1% Xylocaine was utilized for local anesthesia tissues overlying the vein. Through this anesthetized area and with the aid of ultrasound a micropuncture needle was utilized to cannulate the vein. Once cannulated, Softip guidewire was advanced into the vein. The needle was withdrawn and a micropuncture sheath and dilator advanced over the guidewire. The guidewire was withdrawn and exchanged for the PICC guidewire and measured 45 cm to the cavoatrial junction. The catheter was cut to size and advanced into the cavoatrial junction without resistance. The sheath was peeled away. Blood was easily withdrawn through the catheter and the catheter was then flushed with heparinized saline solution and secured to the skin. Patient tolerated procedure well and was returned to their room in satisfactory and stable condition.
--- NOTE | 2023-11-08 09:14 | IR ---
EXAMINATION TYPE: IR cvc insert >=5 years DATE OF EXAM: 11/08/2023 COMPARISON: NONE HISTORY: Fluoroscopy time. Fluoroscopy was provided to the referring clinician.
--- NOTE | 2023-11-08 11:53 | P.PN ---
Subjective Progress Note Date: 11/08/23 Principal diagnosis: Peripheral arterial disease, gangrene foot Patient is seen and examined today as a follow-up. He had his PICC line placed. Plan is for discharge with IV antibiotics. He has been afebrile. States pain is improved. Objective - Vital Signs Vital signs: Vital Signs Temp 98.4 F 11/08/23 07:34 Pulse 79 11/08/23 07:34 Resp 20 11/08/23 07:34 BP 143/73 11/08/23 07:34 Pulse Ox 97 11/08/23 07:34 FiO2 Intake & Output 11/07/23 11/08/23 11/08/23 18:59 06:59 18:59 Intake Total 1300 Output Total 1650 1500 Balance -1650 -200 Intake: Intake, IV Titration 700 Amount Cefepime 2 gm In Sodium 200 Chloride 0.9% 100 ml @ 25 mls/hr IVPB Q8H [facility] Rx#: [id number] Vancomycin 1,500 mg In 500 Sodium Chloride 0.9% 500 ml 500 ml @ 167 mls/hr IVPB Q8H [facility] Rx#: [id number] Oral 600 Output: Urine 1650 1500 Other: Voiding Method Urinal Urinal Urinal # Voids 2 # Bowel Movements 1 - Exam General appearance: The patient is alert, oriented, appears in no acute distress. HET: Head is normocephalic and atraumatic. Pupils are equal and reactive. Neck: Supple. Abdomen: Soft, nondistended. Extremities: Left lower extremity swelling, erythema. Good capillary refill. Medial surgical incision with dressing with serosanguineous drainage noted. Left foot with dressing intact. Sensorimotor intact. Neurological: No focal deficits. Alert and oriented.. - Labs CBC & Chem 7: 11/07/23 06:28 11/07/23 06:28 Labs: Microbiology - Last 24 Hours (Table) 11/06/23 09:30 Gram Stain - Final Leg - Left Wound Culture - Final Pseudomonas aeruginosa Methicillin resist S. aureus 11/06/23 09:30 Gram Stain - Final Foot - Left Wound Culture - Final 11/05/23 14:00 Blood Culture - Preliminary Blood Assessment and Plan Assessment: 1. History of peripheral arterial disease with critical limb ischemia of the left lower extremity status post left common femoral endarterectomy and femoral to below-knee popliteal artery bypass 2. Left lower extremity swelling 3. Dehiscence of left medial calf incision from increased edema 4. Gangrene left foot 5. Ulceration left ankle Plan: 1. Consult to wound clinic for local wound care 2. Wound cultures obtained 3. Continue with recommendations from infectious disease 4. Continue with outpatient wound care 5. Discussed with patient there is a likely possibility that he will require a below the knee amputation, this will be further discussed as an outpatient if patient does not heal. 6. No plans on surgical intervention from vascular surgery at this time 7. PICC line placed Thank you for this consultation, patient is cleared from vascular surgery for discharge. He has appointment with Dr. Payne on 11/20/2023 The impression and plan of care has been dictated as directed. Dr. Stearns I performed a history and examination of this patient, discussed the same with the dictator. I agree with the dictator's note ,documented as a scribe. Any additional findings or plans will be noted.
[2023-11-08] MEDS: ACETAMINOPHEN TAB 325 MG TAB PO PRN (13:04)
--- NOTE | 2023-11-08 13:25 | P.PN ---
Subjective Progress Note Date: 11/06/23 Principal diagnosis: Reason for follow-up is left lower extremity wound and cellulitis Patient is a 58-year-old male with a past medical history significant for COPD patient did have a history of left foot gangrene in this patient who is status post left femoral-popliteal bypass patient currently at the local [facility] patient has been sent to the ER concerning for increasing swelling redness of the left lower extremity, patient admitted to hospital with left lower extremity wound and cellulitis. On today's evaluation that is 11/06/2023,the patient denies any fever or any chills, patient is breathing comfortably on room air, the patient denies chest pain shortness of breath and no significant cough, patient denies abdominal pain, no nausea vomiting or diarrhea or any worsening pain to the left lower extremity. The patient white count is down to 11.4, creatinine 0.63 Objective - Vital Signs Vital signs: Vital Signs Temp 98.4 F 11/06/23 07:34 Pulse 79 11/06/23 07:34 Resp 20 11/06/23 07:34 BP 143/73 11/06/23 07:34 Pulse Ox 97 11/06/23 07:34 FiO2 - Exam GENERAL DESCRIPTION: Middle-age male lying in bed in no distress RESPIRATORY SYSTEM: Unlabored breathing , decreased breath sounds at bases HEART: S1 S2 regular rate and rhythm , ABDOMEN: Soft , no tenderness EXTREMITIES: Left lower extremity some swelling redness minimal drainage - Labs CBC & Chem 7: 11/07/23 06:28 11/07/23 06:28 Labs: Microbiology - Last 24 Hours (Table) 11/06/23 09:30 Anaerobic Culture - Preliminary Leg - Left 11/06/23 09:30 Anaerobic Culture - Preliminary Foot - Left Sherin albicans 11/06/23 09:30 Gram Stain - Final Leg - Left Wound Culture - Final Pseudomonas aeruginosa Methicillin resist S. 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 Current Visit: Yes Status: Acute Code(s): L97.225 - NON-PRS CHR ULCER OF LEFT CALF WITH MSL INVL W/O EVD OF NECR SNOMED Code(s): 82460421415163371 Plan: 1patient presented to hospital with increasing pain swelling redness to the left lower extremity in this patient noted to have left foot gangrene and recently did have a left lower extremity bypass surgery and also completed ext ensive course of IV antibiotic therapy now presenting with increasing drainage did have elevated white count concerning for wound infection and cellulitis we will need to cover for resistant gram-positive as well as gram-negative 2-vascular surgery has evaluated the patient recommending no drainage at this point 3-patient to continue with the vancomycin and cefepime while waiting for the culture to finalize Dictation was produced using [employer] dictation software. please excuse any grammatical, word or spelling errors. Time with Patient: Less than 30
--- NOTE | 2023-11-08 13:30 | P.PN ---
Subjective Progress Note Date: 11/07/23 Principal diagnosis: Reason for follow-up is left lower extremity wound and cellulitis Patient is a 58-year-old male with a past medical history significant for COPD patient did have a history of left foot gangrene in this patient who is status post left femoral-popliteal bypass patient currently at the local [facility] patient has been sent to the ER concerning for increasing swelling redness of the left lower extremity, patient admitted to hospital with left lower extremity wound and cellulitis. On today's evaluation that is 11/07/2023,the patient remains to be afebrile, patient is on room air not requiring supplemental oxygen and denies any shortness of breath no chest pain or cough.Patient denies having any nausea or vomiting, no abdominal pain and no diarrhea has been reported, still complaining of pain to the left leg but no worsening. The patient white count is 12.6 creatinine 0.62 local culture with MRSA and gram-negative Objective - Vital Signs Vital signs: Vital Signs Temp 97.4 F L 11/07/23 10:37 Pulse 87 11/07/23 10:37 Resp 14 11/07/23 10:37 BP 110/72 11/07/23 10:37 Pulse Ox 99 11/07/23 10:37 FiO2 Intake & Output 11/06/23 11/07/23 11/07/23 18:59 06:59 18:59 Intake Total 1200 1150 Output Total 1925 1050 Balance -725 1150 -1050 Intake: Intake, IV Titration 1150 Amount Cefepime 2 gm In Sodium 650 Chloride 0.9% 100 ml @ 25 mls/hr IVPB Q8H [facility] Rx#: [id number] Vancomycin 1,500 mg In 500 Sodium Chloride 0.9% 500 ml 500 ml @ 167 mls/hr IVPB Q8H O[facility] Rx#: [id number] Oral 1200 Output: Urine 1925 1050 Other: Voiding Method Urinal Urinal # Voids 1 # Bowel Movements 1 - Exam GENERAL DESCRIPTION: Middle-age male lying in bed in no distress RESPIRATORY SYSTEM: Unlabored breathing , decreased breath sounds at bases HEART: S1 S2 regular rate and rhythm , ABDOMEN: Soft , no tenderness EXTREMITIES: Left lower extremity some swelling redness minimal drainage - Labs CBC & Chem 7: 11/07/23 06:28 11/07/23 06:28 Labs: Abnormal Lab Results - Last 24 Hours (Table) 11/07/23 11/07/23 Range/Units 06:28 06:28 WBC 12.6 H (3.8-10.6) k/uL RBC 3.20 L (4.30-5.90) m/uL Hgb 8.6 L (13.0-17.5) gm/dL Hct 27.7 L (39.0-53.0) % Plt Count 583 H (150-450) k/uL Sodium 135 L (137-145) mmol/L BUN 7 L (9-20) mg/dL Creatinine 0.62 L (0.66-1.25) mg/dL Microbiology - Last 24 Hours (Table) 11/06/23 09:30 Gram Stain - Preliminary Leg - Left Wound Culture - Preliminary Gram Neg Bacilli Presumptive MRSA 11/06/23 09:30 Gram Stain - Preliminary Foot - Left 11/05/23 14:00 Blood Culture - Preliminary Blood Assessment and Plan (1) Cellulitis of left leg Current Visit: Yes Status: Acute Code(s): L03.116 - CELLULITIS OF LEFT LOWER LIMB SNOMED Code(s): 28342419346327587 (2) Gangrene of left foot Current Visit: Yes Status: Acute Code(s): I96 - GANGRENE, NOT ELSEWHERE CLASSIFIED SNOMED Code(s): 21881911152816985 (3) 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 Current Visit: Yes Status: Acute Code(s): L97.225 - NON-PRS CHR ULCER OF LEFT CALF WITH MSL INVL W/O EVD OF NECR SNOMED Code(s): 91852964095364809 Plan: 1patient presented to hospital with increasing pain swelling redness to the left lower extremity in this patient noted to have left foot gangrene and rec ently did have a left lower extremity bypass surgery and also completed extensive course of IV antibiotic therapy now presenting with increasing drainage did have elevated white count concerning for wound infection and cellulitis we will need to cover for resistant gram-positive as well as gram-negative 2-vascular surgery has evaluated the patient recommending no drainage at this point 3-patient local culture currently growing MRSA and gram-negative for the patient is covered with cefepime and vancomycin he did get a PICC line Dictation was produced using [employer] dictation software. please excuse any grammatical, word or spelling errors. Time with Patient: Less than 30
--- NOTE | 2023-11-08 13:31 | P.PN ---
Subjective Progress Note Date: 11/08/23 Principal diagnosis: Reason for follow-up is left lower extremity wound and cellulitis Patient is a 58-year-old male with a past medical history significant for COPD patient did have a history of left foot gangrene in this patient who is status post left femoral-popliteal bypass patient currently at the local [facility] patient has been sent to the ER concerning for increasing swelling redness of the left lower extremity, patient admitted to hospital with left lower extremity wound and cellulitis. On today's evaluation that is 11/08/2023, Patient did have a low-grade fever 100.2 last night however the patient is afebrile since then patient is breathing comfortably on room air, denies having any chest pain shortness of breath or cough still complaining of pain to the left lower extremity but no worsening and no diarrhea. No new labs has been obtained today culture has been positive for Pseudomonas and MRSA anaerobe cultures so far negative, also showing Sherin species Objective - Vital Signs Vital signs: Vital Signs Temp 98.5 F 11/08/23 12:56 Pulse 78 11/08/23 12:56 Resp 18 11/08/23 12:56 BP 133/76 11/08/23 12:56 Pulse Ox 99 11/08/23 12:56 FiO2 Intake & Output 11/07/23 11/08/23 11/08/23 18:59 06:59 18:59 Intake Total 1300 Output Total 1650 1500 600 Balance -1650 -200 -600 Intake: Intake, IV Titration 700 Amount Cefepime 2 gm In Sodium 200 Chloride 0.9% 100 ml @ 25 mls/hr IVPB Q8H [facility] Rx#: [id number] Vancomycin 1,500 mg In 500 Sodium Chloride 0.9% 500 ml 500 ml @ 167 mls/hr IVPB Q8H [facility] Rx#: [id number] Oral 600 Output: Urine 1650 1500 600 Other: Voiding Method Urinal Urinal Urinal # Voids 2 3 # Bowel Movements 1 - Exam GENERAL DESCRIPTION: Middle-age male lying in bed in no distress RESPIRATORY SYSTEM: Unlabored breathing , decreased breath sounds at bases HEART: S1 S2 regular rate and rhythm , ABDOMEN: Soft , no tenderness EXTREMITIES: Left lower extremity some swelling redness has improved minimal drainage on the dressing - Labs CBC & Chem 7: 11/07/23 06:28 11/07/23 06:28 Labs: Microbiology - Last 24 Hours (Table) 11/06/23 09:30 Anaerobic Culture - Preliminary Leg - Left 11/06/23 09:30 Anaerobic Culture - Preliminary Foot - Left Sherin albicans 11/06/23 09:30 Gram Stain - Final Leg - Left Wound Culture - Final Pseudomonas aeruginosa Methicillin resist S. 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 Current Visit: Yes Status: Acute Code(s): L97.225 - NON-PRS CHR ULCER OF LEFT CALF WITH MSL INVL W/O EVD OF NECR SNOMED Code(s): 23736016366841544 Plan: 1patient presented to hospital with increasing pain swelling redness to the left lower extremity in this patient noted to have left foot gangrene and recently did have a left lower extremity bypass surgery and also completed extensive course of IV antibiotic therapy now presenting with increasing drainage did have elevated white count concerning for wound infection and cellulitis we will need to cover for resistant gram-positive as well as gram- negative 2-vascular surgery has evaluated the patient recommending no drainage at this point 3-patient local culture currently growing MRSA and Pseudomonas aeruginosa also showing Sherin which is more likely colonizer patient is covered with the vancomycin and cefepime to continue for 2 to 4-week depending upon clinical improvement and close outpatient follow-up discussed with admitting team Dictation was produced using [employer] dictation software. please excuse any grammatical, word or spelling errors. Time with Patient: Less than 30
[2023-11-08 15:19] VITALS: BMI 25.0
--- NOTE | 2023-11-08 16:18 | P.PN ---
Subjective 58-year-old gentleman with past medical history of peripheral arterial disease, history of left foot nonhealing wound, with cellulitis, s/p left common femoral artery endarterectomy and angioplasty left femoral to below-knee popliteal artery bypass, history of gastrointestinal bleed, history of colon diverticulosis, COPD, history of depression presents to the emergency department with worsening lower extremity edema ongoing for 48 hours. Patient was hospitalized in September and was treated for left foot infection, noted to have DVT during that hospitalization. Patient coming in from [facility] short- term care for his wounds. Secondary to worsening swelling, left lower extremity erythema patient was sent in for further evaluation Workup in ER included CBC which showed WBC of 13.3 hemoglobin 8.6 platelet count of 540, serum chemistry showed sodium 133 potassium 4.8 BUN 9 creatinine 0.61 While in the ER and x-ray of the foot is requested, started on broad-spectrum antibiotic including Zosyn and vancomycin 11/06/23: Patient seen and evaluated at bedside, appreciate input from infectious disease, continue patient on broad-spectrum antibiotics on cefepime and vancomycin, x-ray of the face shows subcutaneous air laterally at the left lateral foreleg. Blood work reviewed WBC 11.4 trending down hemoglobin 8.6 serum chemistry reviewed. Potential need for amputation discussed with patient down the line, at this time patient adamantly refusing. 11/07/2023 Patient awake alert She has left leg swelling and wounds with some purulent discharge, he has a wound below the left knee medially and another 1 in the ankle and foot, he has some finger gangrene changes. Dressing is placed in pain and can move his legs and sit up on the bed age. Patient denies diarrhea or any other new complaint Hemodynamically stable WBC is 12.6 which is stable, hemoglobin stable at 13.6, BMP is unremarkable Wound cultures, gram-negative bacilli and MRSA Remains on IV cefepime and IV vancomycin Vascular surgery team already evaluated the patient, as per recommendation patient will likely possibility that there will need for below-knee amputation 11/08/2023 Patient fluid culture came back positive for MRSA and Pseudomonas Patient had PICC line placed Antibiotic were adjusted for discharge including vancomycin and cefepime per ID team recommendation Patient is cleared for discharge by vascular surgery team per my discussion with them. Patient also refusing any surgical intervention while this hospital. Still patient has risk of BKA which is going to follow-up as an outpatient and already has appointment with vascular surgery team on 11/19 Currently patient medically stable and has been considered for discharge. Pending antibiotic set up as an outpatient Case discussed with the staff,, possible discharge tomorrow Objective - Vital Signs Vital signs: Vital Signs Temp 98.5 F 11/08/23 12:56 Pulse 78 11/08/23 12:56 Resp 18 11/08/23 12:56 BP 133/76 11/08/23 12:56 Pulse Ox 99 11/08/23 12:56 FiO2 Intake & Output 11/07/23 11/08/23 11/08/23 18:59 06:59 18:59 Intake Total 1300 Output Total 1650 1500 600 Balance -1650 -200 -600 Weight 90.718 kg Intake: Intake, IV Titration 700 Amount Cefepime 2 gm In Sodium 200 Chloride 0.9% 100 ml @ 25 mls/hr IVPB Q8H OLVIN Rx#: [id number] Vancomycin 1,500 mg In 500 Sodium Chloride 0.9% 500 ml 500 ml @ 167 mls/hr IVPB Q8H OLVIN Rx#: [id number] Oral 600 Output: Urine 1650 1500 600 Other: Voiding Method Urinal Urinal Urinal # Voids 2 3 # Bowel Movements 1 - Exam GENERAL: The patient is alert and oriented x3, not in any acute distress. Well developed, well nourished. HEENT: Pupils are round and equally reacting to light. EOMI. No scleral icterus. No conjunctival pallor. Normocephalic, atraumatic. No pharyngeal erythema. No thyromegaly. CARDIOVASCULAR: S1 and S2 present. No murmurs, rubs, or gallops. PULMONARY: Chest is clear to auscultation, no wheezing , no crackles. ABDOMEN: Soft, nontender, nondistended, normoactive bowel sounds. No palpable organomegaly. MUSCULOSKELETAL: No joint swelling or deformity. -EXTREMITIES: No cyanosis, clubbing, or pedal edema. left leg swelling and wounds with some purulent discharge, he has a wound below the left knee medially and another 1 in the ankle and foot, he has some finger gangrene changes. Dressing is placed NEUROLOGICAL: Gross neurological examination did not reveal any focal deficits. SKIN: No rashes. no petechiae. - Labs CBC & Chem 7: 11/07/23 06:28 11/07/23 06:28 Labs: Microbiology - Last 24 Hours (Table) 11/06/23 09:30 Anaerobic Culture - Preliminary Leg - Left 11/06/23 09:30 Anaerobic Culture - Preliminary Foot - Left Sherin albicans 11/06/23 09:30 Gram Stain - Final Leg - Left Wound Culture - Final Pseudomonas aeruginosa Methicillin resist S. aureus 11/06/23 09:30 Gram Stain - Final Foot - Left Wound Culture - Final 11/05/23 14:00 Blood Culture - Preliminary Blood Assessment and Plan Assessment: Left lower extremity cellulitis, left foot gangrene Sepsis Peripheral arterial disease s/p left femoral endarterectomy, patch angioplasty, left femoral to distal popliteal saphenous vein bypass History of DVT History of nonsustained V. tach Plan: Follow-up with cultures Continue with IV vancomycin and IV cefepime ID and vascular surgery team on the case Wound team consult Pain management Patient marked my surgical debridement or BKA per vascular surgery team recommendation Labs and medication were reviewed.. Continue same treatment. Continue with symptomatic treatment. Resume home medication. Monitor labs and vitals. DVT and GI prophylaxis. Further recommendations as per clinical course of the patient DVT prophylaxis: Xarelto GI Prophylaxis: Pepcid PT/OT: Pending, patient is from [facility] which she plans to go back upon discharge Prognosis is guarded
[2023-11-09 08:12] VITALS: BP 157/73; PULSE 90; RESP 18; TEMP 98.7
[2023-11-09] MEDS: VANCOMYCIN TROUGH DUE 1 EACH MISC MISCELLANE ONE (11:05)
--- NOTE | 2023-11-09 11:16 | P.DS ---
Providers Date of admission: 11/05/23 12:36 Attending physician: Fredi Wagner MD Consults: 11/05/23 13:03 Consult Physician Routine Consulting Provider: Torrie Shaffer Consult Reason/Comments: Left lower extremity cellulitis Do you want consulting provider notified?: Yes 11/05/23 13:25 Consult Physician Routine Consulting Provider: Marcos Miles Consult Reason/Comments: Peripheral arterial disease, s/p left femoropopliteal bypass,, foot gangren Do you want consulting provider notified?: Yes Primary care physician: Kierra Fisher DO Hospital Course: Diagnoses Left lower extremity cellulitis, left foot gangrene. Patient declined surgical treatment patient will be discharged on IV antibiotic Sepsis, secondary to above, improving Peripheral arterial disease s/p left femoral endarterectomy, patch angioplasty, left femoral to distal popliteal saphenous vein bypass, needs close outpatient follow-up History of DVT. Currently is taking Xarelto 2.5 mg for DVT prophylaxis History of nonsustained V. tach Hospital course: -year-old gentleman with past medical history of peripheral arterial disease, history of left foot nonhealing wound, with cellulitis, s/p left common femoral artery endarterectomy and angioplasty left femoral to below-knee popliteal artery bypass, history of gastrointestinal bleed, history of colon diverticu losis, COPD, history of depression presents to the emergency department with worsening lower extremity edema ongoing for 48 hours. Patient was hospitalized in September and was treated for left foot infection, noted to have DVT during that hospitalization, currently patient is on Xarelto 2.5 mg for DVT prophylaxis. Ultrasound of the left leg was negative for DVT. Patient coming in from [facility] short-term care for his wounds. Secondary to worsening swelling, left lower extremity erythema patient was sent in for further evaluation. Patient was found with cellulitis of the left lower extremity cultures growing MRSA Pseudomonas. Patient to continue with IV antibiotics upon discharge as is suggested by ID team to include IV vancomycin and cefepime. Also vascular surgery team evaluate the patient, patient may be considered for debridement versus left BKA however patient declined surgical intervention, as such patient will be continued with IV antibiotics. Vascular surgery team Clear him for discharge, patient has follow-up appointment with Dr. toussaint on 11/20, patient informed and he agrees Patient denies any other complaints. No chest pain or dyspnea Patient eager to go close rehab from yesterday Patient was cleared for discharge by all consultants including infectious disease team and vascular surgery team. I discussed the case with vascular surgery myself and patient can follow-up as an outpatient Problems and management plan were discussed with the patient and he verbalized understanding and acceptance Patient was found stable and can be discharged home in guarded prognosis however he needs follow-up as an outpatient. Patient was instructed to follow up with PCP Dr. Nelson within one week and patient agrees Patient was instructed to follow-up with vascular surgeon dr. miles on his appointment on 11/19 and he agrees to follow up Patient was instructed to follow-up with ID Dr. Shaffer in 1 week and he agrees Physical exam Gen: patient is a AAOx3, no distress CVS: S1-S2, RRR, no murmur Lungs: B/L CTA, no wheezing Abdomen: soft, no distention, no tenderness, positive bowel sounds -Extremity: no leg edema or induration. Left leg wound in the left and below left knee with dressing in place, cellulitis and erythema and swelling improvement Time spent more than 35 minutes Patient Condition at Discharge: Stable Plan - Discharge Summary Discharge Rx Participant: No New Discharge Prescriptions: New Gabapentin [Neurontin] 600 mg PO TID@0700,1300,1900 #30 cap Cefepime [Maxipime] 2 gm IVPB Q8H #63 each Vancomycin 1,500 mg IVPB Q8HR #63 each Continue Tamsulosin [Flomax] 0.4 mg PO PC-BRKFST #30 cap Naloxone [Narcan] 0.4 mg IM ONCE PRN PRN Reason: Opioid Reversal Acetaminophen Tab [Tylenol] 1,000 mg PO ONETIME Acetaminophen [Tylenol Arthritis] 650 mg PO Q6H PRN PRN Reason: Fever And/ Or Pain Famotidine [Pepcid] 10 mg PO DAILY Aspirin 81 mg PO DAILY tab Atorvastatin [Lipitor] 40 mg PO HS tab Mirtazapine [Remeron] 15 mg PO HS tab Thiamine [Vitamin B-1] 100 mg PO DAILY #30 tab Rivaroxaban [Xarelto] 2.5 mg PO BID #60 tab Naloxone HCl [Narcan] 4 mg NASAL ONCE PRN PRN Reason: Opioid Reversal Metoprolol Succinate (ER) [Toprol XL] 25 mg PO DAILY Magnesium Oxide [Mag-Ox] 400 mg PO DAILY@0700 Citalopram Hydrobromide [CeleXA] 40 mg PO HS DULoxetine HCL [Cymbalta] 30 mg PO DAILY@0700 Changed oxyCODONE-APAP 7.5-325MG [Percocet 7.5-325 mg] 1 tab PO Q12HR PRN 3 Days #0 PRN Reason: Severe Breakthrough Pain Discontinued Gabapentin 300 mg PO TID@0700,1300,1900 Discharge Medication List Aspirin 81 mg PO DAILY tab 09/10/23 [Rx] Atorvastatin [Lipitor] 40 mg PO HS tab 09/10/23 [Rx] Mirtazapine [Remeron] 15 mg PO HS tab 09/10/23 [Rx] Tamsulosin [Flomax] 0.4 mg PO PC-BRKFST #30 cap 09/10/23 [Rx] Rivaroxaban [Xarelto] 2.5 mg PO BID #60 tab 09/19/23 [Rx] Thiamine [Vitamin B-1] 100 mg PO DAILY #30 tab 09/19/23 [Rx] Acetaminophen Tab [Tylenol] 1,000 mg PO ONETIME 11/05/23 [History] Acetaminophen [Tylenol Arthritis] 650 mg PO Q6H PRN 11/05/23 [History] Citalopram Hydrobromide [CeleXA] 40 mg PO HS 11/05/23 [History] DULoxetine HCL [Cymbalta] 30 mg PO DAILY@0700 11/05/23 [History] Famotidine [Pepcid] 10 mg PO DAILY 11/05/23 [History] Magnesium Oxide [Mag-Ox] 400 mg PO DAILY@0700 11/05/23 [History] Metoprolol Succinate (ER) [Toprol XL] 25 mg PO DAILY 11/05/23 [History] Naloxone HCl [Narcan] 4 mg NASAL ONCE PRN 11/05/23 [History] Naloxone [Narcan] 0.4 mg IM ONCE PRN 11/05/23 [History] Cefepime [Maxipime] 2 gm IVPB Q8H #63 each 11/08/23 [Rx] Gabapentin [Neurontin] 600 mg PO TID@0700,1300,1900 #30 cap 11/08/23 [Rx] Vancomycin 1,500 mg IVPB Q8HR #63 each 11/08/23 [Rx] oxyCODONE-APAP 7.5-325MG [Percocet 7.5-325 mg] 1 tab PO Q12HR PRN 3 Days #0 11/08/23 [Rx] Follow up Appointment(s)/Referral(s): Kierra Fisher DO [Primary Care Provider] - 1-2 days Marcos Miles DO [STAFF PHYSICIAN] - 11/20/23 Torrie Shaffer MD [STAFF PHYSICIAN] - 1 Week Activity/Diet/Wound Care/Special Instructions: Regular diet activity is as tolerated
--- NOTE | 2023-11-09 16:23 | P.PN ---
Subjective Progress Note Date: 11/09/23 Principal diagnosis: Reason for follow-up is left lower extremity wound and cellulitis Patient is a 58-year-old male with a past medical history significant for COPD patient did have a history of left foot gangrene in this patient who is status post left femoral-popliteal bypass patient [facility] the local [facility] patient has been sent to the ER concerning for increasing swelling redness of the left lower extremity, patient admitted to hospital with left lower extremity wound and cellulitis. On today's evaluation that is 11/09/2023, patient has been afebrile, patient is breathing comfortably and is currently on room air, patient denies having any significant cough no chest pain shortness of breath, patient denies nausea vomiting or diarrhea and no abdominal pain, the patient pain to the left lower extremity has decreased in intensity. Patient did have a vancomycin trough of 23.4 no CBC was done today Objective - Vital Signs Vital signs: Vital Signs Temp 98.7 F 11/09/23 07:27 Pulse 90 11/09/23 07:27 Resp 18 11/09/23 07:27 BP 157/73 11/09/23 07:27 Pulse Ox 96 11/09/23 07:27 FiO2 Intake & Output 11/08/23 11/09/23 11/09/23 18:59 06:59 18:59 Intake Total 1200 Output Total 1075 2500 700 Balance -1075 -1300 -700 Weight 90.718 kg Intake: Intake, IV Titration 600 Amount Cefepime 2 gm In Sodium 100 Chloride 0.9% 100 ml @ 25 mls/hr IVPB Q8H OLVIN Rx#: [id number] Vancomycin 1,500 mg In 500 Sodium Chloride 0.9% 500 ml 500 ml @ 167 mls/hr IVPB Q8H OLVIN Rx#: [id number] Oral 600 Output: Urine 1075 2500 700 Other: Voiding Method Urinal Urinal # Voids 3 # Bowel Movements 1 - Exam GENERAL DESCRIPTION: Middle-age male lying in bed in no distress RESPIRATORY SYSTEM: Unlabored breathing , decreased breath sounds at bases HEART: S1 S2 regular rate and rhythm , ABDOMEN: Soft , no tenderness EXTREMITIES: Left lower extremity some swelling redness has improved minimal drainage on the dressing - Labs CBC & Chem 7: 11/07/23 06:28 11/07/23 06:28 Labs: Microbiology - Last 24 Hours (Table) 11/05/23 14:00 Blood Culture - Preliminary Blood 11/06/23 09:30 Anaerobic Culture - Preliminary Leg - Left 11/06/23 09:30 Anaerobic Culture - Preliminary Foot - Left Sherin albicans 11/06/23 09:30 Gram Stain - Final Leg - Left Wound Culture - Final Pseudomonas aeruginosa Methicillin resist S. 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 Status: Acute Code(s): L97.225 - NON-PRS CHR ULCER OF LEFT CALF WITH MSL INVL W/O EVD OF NECR SNOMED Code(s): 37642848233016351 Plan: 1patient presented to hospital with increasing pain swelling redness to the left lower extremity in this patient noted to have left foot gangrene and recently did have a left lower extremity bypass surgery and also completed extensive course of IV antibiotic therapy now presenting with increasing drainage did have elevated white count concerning for wound infection and cellulitis we will need to cover for resistant gram-positive as well as gram- negative 2-vascular surgery has evaluated the patient recommending no drainage at this point 3-patient local culture currently growing MRSA and Pseudomonas aeruginosa also showing Sherin which is more likely colonizer 4-patient to continue the vancomycin pharmacy to dose and cefepime x 2 to 4 weeks on discharge and close outpatient follow-up Dictation was produced using [employer] dictation software. please excuse any grammatical, word or spelling errors. Time with Patient: Less than 30
[2023-11-09] MEDS ORDERED: VANCOMYCIN 1,500 MG in SODIUM CHLORIDE 0.9% 500 ML 500 ML IVPB SCH (23:00)
== END 2023-11-09 13:07 | DRG 720 ==
LOC: EC 10:37 → 4SSUR 12:36 → 1SOBS 15:10 → 5NMEDONC 11-07 15:57
PROVIDERS: ADMIT Internal Medicine; ATTEND Internal Medicine
PROC: 02HV33Z Insertion of Infusion Device into Superior Vena Cava, Percutaneous Approach (ICD-10-PCS; principal; 2023-11-08 08:35)
DX: A41.02 Sepsis due to Methicillin resistant Staphylococcus aureus (principal); I70.262 Atherosclerosis of native arteries of extremities with gangrene, left leg; L97.225 Non-pressure chronic ulcer of left calf with muscle involvement without evidence of necrosis; R65.20 Severe sepsis without septic shock; L03.116 Cellulitis of left lower limb; T81.31XA Disruption of external operation (surgical) wound, not elsewhere classified, initial encounter; B96.5 Pseudomonas (aeruginosa) (mallei) (pseudomallei) as the cause of diseases classified elsewhere; F32.A Depression, unspecified; F41.9 Anxiety disorder, unspecified; F17.200 Nicotine dependence, unspecified, uncomplicated; L97.329 Non-pressure chronic ulcer of left ankle with unspecified severity; I47.20 Ventricular tachycardia, unspecified; Z79.01 Long term (current) use of anticoagulants; Z79.82 Long term (current) use of aspirin; Z79.899 Other long term (current) drug therapy; Z86.718 Personal history of other venous thrombosis and embolism; Z95.828 Presence of other vascular implants and grafts; Z87.19 Personal history of other diseases of the digestive system
CPT/HCPCS: 36415; 36573; 80048; 80053; 80202; 85025; 85027; 87040; 87070; 87075; 87077; 87186; 87205; 96365; 96366; 99285

== ENCOUNTER 2023-12-05 11:57 | Inpatient (IN) | payer OTHER ==
[2023-12-05 13:28] LABS: ALT 22 U/L (4-49); AST 33 U/L (17-59); African American GFR (CKD) 37 (>60 ml/min/1.73 sqM); Albumin 2.8 g/dL (3.5-5.0); Alcohol <10 mg/dL; Alkaline Phosphatase 121 U/L (38-126); Anion Gap 9 mmol/L; Blood Urea Nitrogen 19 mg/dL (9-20); Calcium 8.1 mg/dL (8.4-10.2); Carbon Dioxide 20 mmol/L (22-30); Chloride 108 mmol/L (98-107); Glucose 95 mg/dL (74-99); Lactic Acid, Venous 1.3 mmol/L (0.7-2.0); Magnesium 2.1 mg/dL (1.6-2.3); Non-African American GFR(CKD) 32 (>60 ml/min/1.73 sqM); Potassium 4.4 mmol/L (3.5-5.1); Sodium 137 mmol/L (137-145); Total Bilirubin 0.4 mg/dL (0.2-1.3); Total Protein 6.9 g/dL (6.3-8.2)
[2023-12-05] MEDS: SODIUM CHLORIDE 0.9% 500 ML 500 ML IV ONE (13:30)
[2023-12-05 13:38] LABS: Basophils # (A) 0.1 k/uL (0-0.2); Basophils % (A) 1 %; Eosinophils # (A) 0.3 k/uL (0-0.7); Eosinophils % (A) 3 %; HCT 25.4 % (39.0-53.0); HGB 7.8 gm/dL (13.0-17.5); Hypochromasia Moderate; Lymphocytes # (A) 1.3 k/uL (1.0-4.8); Lymphocytes % (A) 12 %; MCH 25.2 pg (25.0-35.0); MCHC 30.7 g/dL (31.0-37.0); MCV 82.1 fL (80.0-100.0); Mean Platelet Volume 7.3; Monocytes # (A) 0.7 k/uL (0-1.0); Monocytes % (A) 6 %; Neutrophils # (A) 8.9 k/uL (1.3-7.7); Neutrophils % (A) 78 %; Platelet Count 584 k/uL (150-450); RBC 3.09 m/uL (4.30-5.90); WBC 11.5 k/uL (3.8-10.6)
--- NOTE | 2023-12-05 13:49 | ED ---
General Adult HPI - General Chief complaint: Altered Mental Status Stated complaint: AMS Time Seen by Provider: 12/05/23 12:15 Source: patient, EMS Mode of arrival: EMS - History of Present Illness Initial comments: 58-year-old male sent to the emergency department from [facility]. Patient is currently there for cellulitis of his left lower extremity. Patient is on Vanco. The facility noted that the patient was becoming altered last night with worsening mentation this morning. He was trying to eat breakfast and was having difficulty feeding himself due to tremors. The patient stated that he did not feel well therefore they transferred him in. He states he feels foggy. Patient was given a Percocet just prior to his altered mental status however the patient has been on this medication for pain. He was also on Flexeril however this medication was recently discontinued yesterday. He denies any other medication changes. No trauma. He denies chest pain, shortness of breath, cough. No abdominal pain. No changes in his bowel or bladder habits. Denies headache or visual changes. No other alleviating, precipitating or modifying factors - Related Data Home Medications Medication Instructions Recorded Confirmed Acetaminophen [Tylenol Arthritis] 650 mg PO Q6H PRN 11/05/23 12/05/23 Citalopram Hydrobromide [CeleXA] 40 mg PO HS 11/05/23 12/05/23 Famotidine [Pepcid] 10 mg PO DAILY 11/05/23 12/05/23 Magnesium Oxide [Mag-Ox] 400 mg PO DAILY 11/05/23 12/05/23 Naloxone HCl [Narcan] 4 mg NASAL ONCE PRN 11/05/23 12/05/23 Naloxone [Narcan] 0.4 mg IM ONCE PRN 11/05/23 12/05/23 Metoprolol Succinate (ER) [Toprol 25 mg PO DAILY 11/22/23 12/05/23 Xl] Rivaroxaban [Xarelto] 2.5 mg PO BID@0700,1900 11/22/23 12/05/23 Tamsulosin [Flomax] 0.4 mg PO DAILY 11/22/23 12/05/23 Vancomycin 1,500 mg IVPB BID@0900,2100 11/22/23 12/05/23 oxyCODONE-APAP 7.5-325MG [Percocet 1 tab PO Q4H 11/22/23 12/05/23 7.5-325 mg] oxyCODONE-APAP 7.5-325MG [Percocet 1 tab PO Q4HR PRN 11/22/23 12/05/23 7.5-325 mg] Ascorbic Acid [Vitamin C] 500 mg PO DAILY 12/05/23 12/05/23 Aspirin EC [Ecotrin Low Dose] 81 mg PO DAILY 12/05/23 12/05/23 Calcium Carbonate/Vitamin D3 1 tab PO DAILY 12/05/23 12/05/23 [Calcium 600 mg-Vit D3 5 mcg (200 unit)] Previous Rx's Medication Instructions Recorded Atorvastatin [Lipitor] 40 mg PO HS tab 09/10/23 Mirtazapine [Remeron] 15 mg PO HS tab 09/10/23 Thiamine [Vitamin B-1] 100 mg PO DAILY #30 tab 09/19/23 Gabapentin [Neurontin] 600 mg PO TID@0700,1300,1900 #30 11/08/23 cap Allergies Allergy/AdvReac Type Severity Reaction Status Date / Time No Known Allergies Allergy Verified 12/05/23 12:31 Review of Systems ROS Statement: Those systems with pertinent positive or pertinent negative responses have been documented in the HPI. ROS Other: All systems not noted in ROS Statement are negative. Past Medical History Past Medical History: COPD, Vascular Disorder Additional Past Medical History / Comment(s): PVD, DVT R leg-recent R femoral popliteal bypass at [facility] 02/22/17, History of Any Multi-Drug Resistant Organisms: MRSA Date of last positivie culture/infection: 11/06/23 MRSA MDRO Source:: Left Leg Past Surgical History: Orthopedic Surgery Additional Past Surgical History / Comment(s): R fem pop bypass 02/22/17 [facility], bilateral knee arthroscopic surgeries. Past Anesthesia/Blood Transfusion Reactions: No Reported Reaction Additional Past Anesthesia/Blood Transfusion Reaction / Comment(s): Pt is currently receiving blood-no reaction at this time. Past Psychological History: Anxiety, Depression Smoking Status: Current every day smoker Past Alcohol Use History: Daily, Heavy Past Drug Use History: None Reported - Past Family History Mother Family Medical History: Cancer, Hyperlipidemia Additional Family Medical History / Comment(s): Mother had skin cancer. She is living. Father Family Medical History: Hyperlipidemia, Hypertension Additional Family Medical History / Comment(s): Father has heart condition. General Exam General appearance: alert, in no apparent distress Head exam: Present: atraumatic, normocephalic, normal inspection Eye exam: Present: normal appearance, PERRL, EOMI. Absent: scleral icterus, conjunctival injection, periorbital swelling ENT exam: Present: normal exam, mucous membranes moist Neck exam: Present: normal inspection. Absent: tenderness, meningismus, lymphadenopathy Respiratory exam: Present: normal lung sounds bilaterally. Absent: respiratory distress, wheezes, rales, rhonchi, stridor Cardiovascular Exam: Present: regular rate, normal rhythm, normal heart sounds. Absent: systolic murmur, diastolic murmur, rubs, gallop, clicks GI/Abdominal exam: Present: soft, normal bowel sounds. Absent: distended, tenderness, guarding, rebound, rigid Extremities exam: Present: normal capillary refill, pedal edema (Left leg is wrapped. Moderate edema noted to this extremity). Absent: tenderness, joint swelling, calf tenderness Back exam: Present: normal inspection Neurological exam: Present: alert, oriented X3, CN II-XII intact Psychiatric exam: Present: normal affect, normal mood Skin exam: Present: warm, dry, intact, normal color. Absent: rash Course Vital Signs 12/05/23 12/05/23 11:59 16:39 Temperature 98.0 F Pulse Rate 72 84 Respiratory 18 Rate Blood Pressure 92/56 102/61 O2 Sat by Pulse 100 99 Oximetry Medical Decision Making - Medical Decision Making Was pt. sent in by a medical professional or institution (, PA, CIVIL DRAFTING TECHNICIAN, urgent care, hospital, or fdc...) When possible be specific @ -Patient was sent in from [facility] Did you speak to anyone other than the patient for history (EMS, parent, family, police, friend...)? What history was obtained from this source @ -Spoke with EMS for history Did you review nursing and triage notes (agree or disagree)? Why? @ -I reviewed and agree with nursing and triage notes Were old charts reviewed (outside hosp., previous admission, EMS record, old EKG, old radiological studies, urgent care reports/EKG's, fdc records)? Report findings @ -I reviewed discharge summary from November 08 when patient was diagnosed with MRSA cellulitis and placed on antibiotics Differential Diagnosis (chest pain, altered mental status, abdominal pain women, abdominal pain men, vaginal bleeding, weakness, fever, dyspnea, syncope, headache, dizziness, GI bleed, back pain, seizure, CVA, palpatations, mental health, musculoskeletal)? @ -Differential Altered Mental Status: Hypoglycemia, DKA, hypercapnia, ETOH, overdose, CO poisoning, trauma, myxedema coma, HTN encephalopathy, infection, encephalitis, psychosis, intercranial hemorrhage, hepatic encephalopathy, meningitis, CVA, this is not meant to be an all-inclusive list EKG interpreted by me (3pts min.). @ -Yes and demonstrates sinus rhythm with a rate of 76. VT interval 140. QRS 88. QTc of 451. No acute ST segment elevations or depressions X-rays interpreted by me (1pt min.). @ -None done CT interpreted by me (1pt min.). @ -None done U/S interpreted by me (1pt. min.). @ -None done What testing was considered but not performed or refused? (CT, X-rays, U/S, labs)? Why? @ -None What meds were considered but not given or refused? Why? @ -None Did you discuss the management of the patient with other professionals (professionals i.e. , PA, CIVIL DRAFTING TECHNICIAN, lab, RT, psych nurse, social service worker, bed bug exterminator, teacher, aoc director intelligence officer, case packer)? Give summary @ -Spoke with Dr. Pierce for admission Was smoking cessation discussed for >3mins.? @ -No Was critical care preformed (if so, how long)? @ -No Were there social determinants of health that impacted care today? How? (Homel essness, low income, unemployed, alcoholism, drug addiction, transportation, low edu. Level, literacy, decrease access to med. care, senior living, rehab)? @ -Patient is coming from rehab Was there de-escalation of care discussed even if they declined (Discuss DNR or withdrawal of care, Hospice)? DNR status @ -No What co-morbidities impacted this encounter? (DM, HTN, Smoking, COPD, CAD, Cancer, CVA, ARF, Chemo, Hep., AIDS, mental health diagnosis, sleep apnea, morbid obesity)? @ -Chronic cellulitis/osteomyelitis Was patient admitted / discharged? Hospital course, mention meds given and route, prescriptions, significant lab abnormalities, going to OR and other pertinent info. @ -Upon arrival patient seen and evaluated in room 20. Thorough history and physical exam was performed. IV is established. Laboratory studies are conducted. Patient does have acute kidney injury. He is on vancomycin which is supratherapeutic. I did recommend admission for infectious disease consult and trending of the patient's creatinine. Patient was agreeable to admission. Spoke with Dr. Pierce for admission Undiagnosed new problem with uncertain prognosis? @ -No Drug Therapy requiring intensive monitoring for toxicity (Heparin, Nitro, Insulin, Cardizem)? @ -No Were any procedures done? @ -No Diagnosis/symptom? @ -Acute encephalopathy, DAYANARA, vancomycin toxicity Acute, or Chronic, or Acute on Chronic? @ -Acute Uncomplicated (without systemic symptoms) or Complicated (systemic symptoms)? @ -Complicated Side effects of treatment? @ -No Exacerbation, Progression, or Severe Exacerbation? @ -No Poses a threat to life or bodily function? How? (Chest pain, [place], [place], pneumonia, PE, COPD, DKA, ARF, appy, cholecystitis, CVA, Diverticulitis, Homicidal, Suicidal, threat to staff... and all critical care pts) @ -No - Lab Data Result diagrams: 12/05/23 13:08 12/05/23 13:08 Lab Results 12/05/23 12/05/23 12/05/23 Range/Units 13:08 13:08 13:08 WBC 11.5 H (3.8-10.6) k/uL RBC 3.09 L (4.30-5.90) m/uL Hgb 7.8 L (13.0-17.5) gm/dL Hct 25.4 L (39.0-53.0) % MCV 82.1 (80.0-100.0) fL MCH 25.2 (25.0-35.0) pg MCHC 30.7 L (31.0-37.0) g/dL RDW 15.0 (11.5-15.5) % Plt Count 584 H (150-450) k/uL MPV 7.3 Neutrophils % 78 % Lymphocytes % 12 % Monocytes % 6 % Eosinophils % 3 % Basophils % 1 % Neutrophils # 8.9 H (1.3-7.7) k/uL Lymphocytes # 1.3 (1.0-4.8) k/uL Monocytes # 0.7 (0-1.0) k/uL Eosinophils # 0.3 (0-0.7) k/uL Basophils # 0.1 (0-0.2) k/uL Hypochromasia Moderate Sodium 137 (137-145) mmol/L Potassium 4.4 (3.5-5.1) mmol/L Chloride 108 H (98-107) mmol/L Carbon Dioxide 20 L (22-30) mmol/L Anion Gap 9 mmol/L BUN 19 (9-20) mg/dL Creatinine 2.15 H (0.66-1.25) mg/dL Est GFR (CKD-EPI)AfAm 37 (>60 ml/min/1.73 sqM) Est GFR (CKD-EPI)NonAf 32 (>60 ml/min/1.73 sqM) Glucose 95 (74-99) mg/dL Plasma Lactic Acid Rajeev 1.3 (0.7-2.0) mmol/L Calcium 8.1 L (8.4-10.2) mg/dL Magnesium 2.1 (1.6-2.3) mg/dL Total Bilirubin 0.4 (0.2-1.3) mg/dL AST 33 (17-59) U/L ALT 22 (4-49) U/L Alkaline Phosphatase 121 (38-126) U/L Ammonia <9 (<30) umol/L Total Protein 6.9 (6.3-8.2) g/dL Albumin 2.8 L (3.5-5.0) g/dL Urine Color Urine Appearance (Clear) Urine pH (5.0-8.0) Ur Specific [place] (1.001-1.035) Urine Protein (Negative) Urine Glucose (UA) (Negative) Urine Ketones (Negative) Urine Blood (Negative) Urine Nitrite (Negative) Urine Bilirubin (Negative) Urine Urobilinogen (<2.0) mg/dL Ur Leukocyte Esterase (Negative) Urine RBC (0-5) /hpf Urine WBC (0-5) /hpf Ur Squamous Epith Cells (0-4) /hpf Amorphous Sediment (None) /hpf Urine Bacteria (None) /hpf Random Vancomycin 43.0 H* ug/mL Urine Opiates Screen (NotDetected) Ur Oxycodone Screen (NotDetected) Urine Methadone Screen (NotDetected) Ur Barbiturates Screen (NotDetected) U Tricyclic Antidepress (NotDetected) Ur Phencyclidine Scrn (NotDetected) Ur Amphetamines Screen (NotDetected) U Methamphetamines Scrn (NotDetected) U Benzodiazepines Scrn (NotDetected) Urine Cocaine Screen (NotDetected) U Marijuana (THC) Screen (NotDetected) Serum Alcohol <10 mg/dL 12/05/23 Range/Units 13:30 WBC (3.8-10.6) k/uL RBC (4.30-5.90) m/uL Hgb (13.0-17.5) gm/dL Hct (39.0-53.0) % MCV (80.0-100.0) fL MCH (25.0-35.0) pg MCHC (31.0-37.0) g/dL RDW (11.5-15.5) % Plt Count (150-450) k/uL MPV Neutrophils % % Lymphocytes % % Monocytes % % Eosinophils % % Basophils % % Neutrophils # (1.3-7.7) k/uL Lymphocytes # (1.0-4.8) k/uL Monocytes # (0-1.0) k/uL Eosinophils # (0-0.7) k/uL Basophils # (0-0.2) k/uL Hypochromasia Sodium (137-145) mmol/L Potassium (3.5-5.1) mmol/L Chloride (98-107) mmol/L Carbon Dioxide (22-30) mmol/L Anion Gap mmol/L BUN (9-20) mg/dL Creatinine (0.66-1.25) mg/dL Est GFR (CKD-EPI)AfAm (>60 ml/min/1.73 sqM) Est GFR (CKD-EPI)NonAf (>60 ml/min/1.73 sqM) Glucose (74-99) mg/dL Plasma Lactic Acid Rajeev (0.7-2.0) mmol/L Calcium (8.4-10.2) mg/dL Magnesium (1.6-2.3) mg/dL Total Bilirubin (0.2-1.3) mg/dL AST (17-59) U/L ALT (4-49) U/L Alkaline Phosphatase (38-126) U/L Ammonia (<30) umol/L Total Protein (6.3-8.2) g/dL Albumin (3.5-5.0) g/dL Urine Color Light Yellow Urine Appearance Turbid (Clear) Urine pH 5.5 (5.0-8.0) Ur Specific [place] 1.014 (1.001-1.035) Urine Protein 1+ H (Negative) Urine Glucose (UA) Negative (Negative) Urine Ketones Negative (Negative) Urine Blood Small H (Negative) Urine Nitrite Negative (Negative) Urine Bilirubin Negative (Negative) Urine Urobilinogen <2.0 (<2.0) mg/dL Ur Leukocyte Esterase Negative (Negative) Urine RBC 3 (0-5) /hpf Urine WBC 5 (0-5) /hpf Ur Squamous Epith Cells 1 (0-4) /hpf Amorphous Sediment Moderate H (None) /hpf Urine Bacteria Occasional H (None) /hpf Random Vancomycin ug/mL Urine Opiates Screen Not Detected (NotDetected) Ur Oxycodone Screen Not Detected (NotDetected) Urine Methadone Screen Not Detected (NotDetected) Ur Barbiturates Screen Not Detected (NotDetected) U Tricyclic Antidepress Not Detected (NotDetected) Ur Phencyclidine Scrn Not Detected (NotDetected) Ur Amphetamines Screen Not Detected (NotDetected) U Methamphetamines Scrn Not Detected (NotDetected) U Benzodiazepines Scrn Not Detected (NotDetected) Urine Cocaine Screen Not Detected (NotDetected) U Marijuana (THC) Screen Not Detected (NotDetected) Serum Alcohol mg/dL Disposition Clinical Impression: Acute encephalopathy, DAYANARA (acute kidney injury), Vancomycin-induced nephrotoxicity Disposition: ADMITTED IP TO THIS HOSP Condition: Serious Is patient prescribed a controlled substance at d/c from ED?: No Time of Disposition: 15:18 Decision to Admit Reason: Admit from EC Decision Date: 12/05/23 Decision Time: 15:18
[2023-12-05 14:18] LABS: Amorphous Sediment,Urine Moderate /hpf; Appearance,Urine Turbid (Clear); Bacteria,Urine Occasional /hpf; Bilirubin,Urine Negative (Negative); Blood,Urine Small (Negative); Color,Urine Light Yellow; Glucose,Urine (UA) Negative (Negative); Ketones,Urine Negative (Negative); Leukocyte Esterase,Urine Negative (Negative); Nitrite,Urine Negative (Negative); PH, Urine 5.5 (5.0-8.0); Protein,Urine 1+ (Negative); RBC,Urine 3 /hpf (0-5); Specific Gravity,Urine 1.014 (1.001-1.035); Squamous Epithelial Cell,Urine 1 /hpf (0-4); Urobilinogen,Urine <2.0 mg/dL (<2.0); WBC,Urine 5 /hpf (0-5)
[2023-12-05 14:25] LABS: Amphetamine Screen,Urine Not Detected (NotDetected); Barbiturate Screen,Urine Not Detected (NotDetected); Benzodiazepines Screen,Urine Not Detected (NotDetected); Cocaine Screen,Urine Not Detected (NotDetected); Methadone Screen, Urine Not Detected (NotDetected); Opiate Screen,Urine Not Detected (NotDetected); Oxycodone Screen, Urine Not Detected (NotDetected); Phencyclidine Screen,Urine Not Detected (NotDetected); Tricyclic Antidepressant,Urine Not Detected (NotDetected); Urn Cannabinoid Scrn Not Detected (NotDetected)
[2023-12-05] MEDS ORDERED: NALOXONE 0.4 MG/ML 1 ML VIAL IV PRN (15:19)
[2023-12-05] MEDS ORDERED: NALOXONE 1 MG/ML 2 ML SYRINGE IM PRN (18:13)
[2023-12-05] MEDS: HYDROmorphone 1 MG/ML 1 ML SYRINGE IVP STA (18:20)
[2023-12-05] MEDS: oxyCODONE-APAP 7.5-325MG 1 EACH TAB PO SCH ×2 (18:35→18:37)
[2023-12-05] MEDS: SODIUM CHLORIDE 0.9% 1,000 ML IV SCH (18:37)
[2023-12-05] MEDS: CITALOPRAM HYDROBROMIDE 20 MG TAB PO SCH (20:41)
[2023-12-05] MEDS: RIVAROXABAN 2.5 MG TABLET PO SCH (20:41)
[2023-12-05] MEDS: ATORVASTATIN 40 MG TAB PO SCH (20:41)
[2023-12-05] MEDS: MIRTAZAPINE 15 MG TAB PO SCH (20:41)
[2023-12-05] MEDS: DAPTOmycin 350 MG in SODIUM CHLORIDE 0.9% 50 ML IVPB SCH (23:37)
[2023-12-06] MEDS: HYDROmorphone 1 MG/ML 1 ML SYRINGE IVP PRN (00:59)
[2023-12-06] MEDS: CEFEPIME 2 GM in SODIUM CHLORIDE 0.9% 100 ML IVPB SCH (01:37)
[2023-12-06] MEDS: ACETAMINOPHEN SUPPOSITORY 650 MG SUPP RECTAL PRN (02:27)
[2023-12-06 04:53] LABS: Glucose,Whole Blood 88 mg/dL (70-110)
[2023-12-06 05:45] LABS: Glucose,Whole Blood 101 mg/dL (70-110)
[2023-12-06] MEDS: IPRATROPIUM-ALBUTEROL 3 ML NEB IH STA (05:46)
--- NOTE | 2023-12-06 05:58 | XR ---
EXAMINATION TYPE: XR chest 1V portable DATE OF EXAM: 12/06/2023 CLINICAL HISTORY: Respiratory distress TECHNIQUE: Single AP portable frontal upright view of the chest is obtained. COMPARISON: Chest x-ray 2017 FINDINGS: Right sided PICC line is redemonstrated. New central increased markings. No pleural effusi on or pneumothorax seen bilaterally. The cardiac silhouette size remains within normal limits. The osseous structures are intact. IMPRESSION: There is new Mild to moderate central vascular congestion suggesting fluid overload state . Correlate clinically.
[2023-12-06] MEDS: SODIUM CHLORIDE 0.9% 1,000 ML BAG IV STA (05:59)
[2023-12-06] MEDS: ACETAMINOPHEN IV (For NPO) 1,000 MG in EMPTY BAG 1 BAG IVPB ONE (05:59)
[2023-12-06] MEDS: METOPROLOL TARTRATE 5 MG/5 ML VIAL IVP ONE (06:00)
[2023-12-06] MEDS: ASPIRIN 300 MG SUPP RECTAL STA (06:31)
--- NOTE | 2023-12-06 07:50 | P.CONS ---
History of Present Illness - Reason for Consult Consult date: 12/05/23 - History of Present Illness Patient is a 58-year-old male with a past medical history significant for COPD also with a history of PAD with recent multiple admission to the hospital with necrotic left foot requiring revascularization recently did have a wound infection culture positive for MRSA and Pseudomonas patient did get a PICC line and was receiving IV vancomycin and cefepime at the skilled nursing patient has been brought into the hospital as the patient was noticed to have elevated Vanco trough and the patient did have some mental status changes patient has been complaining of feeling foggy and not feeling well denies high-grade fever or any chills and no chest pain shortness of breath or cough no nausea no vomiting no abdominal pain or diarrhea has been complaining of pain to the left lower extremity to be sharp moderate to severe intensity without any radiation also noticed to have more discoloration to the left foot area patient on presentation to the hospital was afebrile patient was not hypotensive mildly hypoxic currently on a 3 L nasal cannula oxygen he did have a white count of 11.5 creatinine is 2.15 liver enzymes are normal vancomycin random was 43 urine drug screen has been negative patient was admitted to hospital infectious disease was consulted for further management of antibiotic therapy Past Medical History Past Medical History: COPD, Vascular Disorder Additional Past Medical History / Comment(s): PVD, DVT R leg-recent R femoral popliteal bypass at [facility] 02/22/17, History of Any Multi-Drug Resistant Organisms: MRSA Year Discovered:: 11/06/23 MRSA MDRO Source:: Left Leg Past Surgical History: Orthopedic Surgery Additional Past Surgical History / Comment(s): R fem pop bypass 02/22/17 [facility], bilateral knee arthroscopic surgeries. Past Anesthesia/Blood Transfusion Reactions: No Reported Reaction Additional Past Anesthesia/Blood Transfusion Reaction / Comm: Pt is currently receiving blood-no reaction at this time. Past Psychological History: Anxiety, Depression Smoking Status: Current every day smoker Past Alcohol Use History: Daily, Heavy Past Drug Use History: None Reported - Past Family History Mother Family Medical History: Cancer, Hyperlipidemia Additional Family Medical History / Comment(s): Mother had skin cancer. She is living. Father Family Medical History: Hyperlipidemia, Hypertension Additional Family Medical History / Comment(s): Father has heart condition. Medications and Allergies Home Medications Medication Instructions Recorded Confirmed Type Atorvastatin [Lipitor] 40 mg PO HS tab 09/10/23 12/05/23 Rx Mirtazapine [Remeron] 15 mg PO HS tab 09/10/23 12/05/23 Rx Thiamine [Vitamin B-1] 100 mg PO DAILY #30 tab 09/19/23 12/05/23 Rx Acetaminophen [Tylenol Arthritis] 650 mg PO Q6H PRN 11/05/23 12/05/23 History Citalopram Hydrobromide [CeleXA] 40 mg PO HS 11/05/23 12/05/23 History Famotidine [Pepcid] 10 mg PO DAILY 11/05/23 12/05/23 History Magnesium Oxide [Mag-Ox] 400 mg PO DAILY 11/05/23 12/05/23 History Naloxone HCl [Narcan] 4 mg NASAL ONCE PRN 11/05/23 12/05/23 History Naloxone [Narcan] 0.4 mg IM ONCE PRN 11/05/23 12/05/23 History Gabapentin [Neurontin] 600 mg PO TID@0700,1300,1900 #30 11/08/23 12/05/23 Rx cap Metoprolol Succinate (ER) [Toprol 25 mg PO DAILY 11/22/23 12/05/23 History Xl] Rivaroxaban [Xarelto] 2.5 mg PO BID@0700,1900 11/22/23 12/05/23 History Tamsulosin [Flomax] 0.4 mg PO DAILY 11/22/23 12/05/23 History Vancomycin 1,500 mg IVPB BID@0900,2100 11/22/23 12/05/23 History oxyCODONE-APAP 7.5-325MG [Percocet 1 tab PO Q4H 11/22/23 12/05/23 History 7.5-325 mg] oxyCODONE-APAP 7.5-325MG [Percocet 1 tab PO Q4HR PRN 11/22/23 12/05/23 History 7.5-325 mg] Ascorbic Acid [Vitamin C] 500 mg PO DAILY 12/05/23 12/05/23 History Aspirin EC [Ecotrin Low Dose] 81 mg PO DAILY 12/05/23 12/05/23 History Calcium Carbonate/Vitamin D3 1 tab PO DAILY 12/05/23 12/05/23 History [Calcium 600 mg-Vit D3 5 mcg (200 unit)] Allergies Allergy/AdvReac Type Severity Reaction Status Date / Time No Known Allergies Allergy Verified 12/05/23 12:31 Physical Exam Vitals: Vital Signs Temp Pulse Resp BP Pulse Ox 12/05/23 16:39 84 18 102/61 99 12/05/23 11:59 98.0 F 72 92/56 100 Intake and Output 12/05/23 12/05/23 12/05/23 06:59 14:59 22:59 Other: Weight 90.718 kg Results CBC & Chem 7: 12/05/23 13:08 12/05/23 13:08 Labs: Abnormal Lab Results - Last 24 Hours (Table) 12/05/23 12/05/23 12/05/23 Range/Units 13:08 13:08 13:30 WBC 11.5 H (3.8-10.6) k/uL RBC 3.09 L (4.30-5.90) m/uL Hgb 7.8 L (13.0-17.5) gm/dL Hct 25.4 L (39.0-53.0) % MCHC 30.7 L (31.0-37.0) g/dL Plt Count 584 H (150-450) k/uL Neutrophils # 8.9 H (1.3-7.7) k/uL Chloride 108 H (98-107) mmol/L Carbon Dioxide 20 L (22-30) mmol/L Creatinine 2.15 H (0.66-1.25) mg/dL Calcium 8.1 L (8.4-10.2) mg/dL Albumin 2.8 L (3.5-5.0) g/dL Urine Protein 1+ H (Negative) Urine Blood Small H (Negative) Amorphous Sediment Moderate H (None) /hpf Urine Bacteria Occasional H (None) /hpf Random Vancomycin 43.0 H* ug/mL Assessment and Plan Plan: 1patient with a chronic nonhealing wound to the left lower extremity in this patient who did have significant PAD requiring revascularization surgery now with more necrotic left foot wound left lower extremity and cellulitis with a previous culture positive for MRSA and Pseudomonas 2-patient did have a elevated creatinine and high vancomycin random level. 3discontinue vancomycin. 4we will start the patient on daptomycin and cefepime. 5patient benefit from vascular surgery evaluation as to have failed medical therapy may need amputation. We will follow on clinical condition and cultures to further adjust medication if needed Thank you for this consultation we will follow the patient along with you Dictation was produced using [employer] dictation software. please excuse any grammatical, word or spelling errors. Time with Patient: Greater than 30
--- NOTE | 2023-12-06 09:52 | P.CRDCN ---
History of Present Illness Consult date: 12/06/23 Reason for Consult (text): Elevated troponin History of present illness: The patient is a 58-year-old male who is currently admitted to the hospital with mental status changes and acute kidney injury. The patient has had multiple admissions within the last several months regarding peripheral vascular disease and recurrent cellulitis. The patient was residing in a local long term where he was receiving IV vancomycin. On arrival to the emergency room he was noted to have nephro toxicity and elevated vancomycin levels. He was admitted to the medical floor and developed sinus tachycardia and reported having chest discomfort. He was subsequently transferred to the ICU and cardiology was consulted for elevated troponin at 0.2. DIAGNOSTICS: EKG shows sinus mechanism without ST or T wave abnormalities Chest x-ray shows pulmonary vascular congestion Lab data: WBC 11.5, hemoglobin 7.8, hematocrit 25.4, platelet 584, sodium 137, potassium 4.4, BUN 19, creatinine 2.15, troponin 0.2 Echocardiogram in September 2023 shows ejection fraction at 45% with no significant valvular abnormalities REVIEW OF SYSTEMS: No chest discomfort or difficulty breathing. Limited review of systems due to mental status. PHYSICAL EXAMINATION: This is a 58-year-old male in no apparent distress at the time of my examination. HEENT: Head is atraumatic, normocephalic. Pupils are equal, round. Mucous membranes of the mouth are moist. Neck is supple. There is no jugular venous distention. No carotid bruit is heard. CHEST EXAMINATION: Lungs are clear to auscultation. No chest wall tenderness is noted on palpation or with deep breathing. HEART EXAMINATION: Heart regular rate and rhythm. S1, S2 heard. No murmurs, gallops or rub. ABDOMEN: Soft, nontender. Bowel sounds are heard. No organomegaly noted. EXTREMITIES: Left lower extremity dressed. No edema in right lower extremity. +1 pulse NEUROLOGIC EXAMINATION: Patient is disoriented. Only able to answer simple questions. Intermittent clonic jerking. FINAL ASSESSMENT AND PLAN: Elevated troponin, likely secondary to nephrotoxicity, awaiting trend Vancomycin toxicity Acute encephalopathy Peripheral vascular disease, status post revascularization Left lower extremity cellulitis History of cardiomyopathy, EF 45% PLAN: Check BNP Resume home cardiac medication regimen Repeat limited echocardiogram Further recommendations to be based upon clinical course I am dictating on behalf of Dr Derek Funez's history/physical and assessment/plan. Past Medical History Past Medical History: COPD, Vascular Disorder Additional Past Medical History / Comment(s): PVD, DVT R leg-recent R femoral popliteal bypass at [facility] 02/22/17, History of Any Multi-Drug Resistant Organisms: MRSA Date of last positivie culture/infection: 11/06/23 MRSA MDRO Source:: Left Leg Past Surgical History: Orthopedic Surgery Additional Past Surgical History / Comment(s): R fem pop bypass 02/22/17 [facility], bilateral knee arthroscopic surgeries. Past Anesthesia/Blood Transfusion Reactions: No Reported Reaction Additional Past Anesthesia/Blood Transfusion Reaction / Comment(s): Pt is currently receiving blood-no reaction at this time. Past Psychological History: Anxiety, Depression Smoking Status: Current every day smoker Past Alcohol Use History: Daily, Heavy Past Drug Use History: None Reported - Past Family History Mother Family Medical History: Cancer, Hyperlipidemia Additional Family Medical History / Comment(s): Mother had skin cancer. She is living. Father Family Medical History: Hyperlipidemia, Hypertension Additional Family Medical History / Comment(s): Father has heart condition. Medications and Allergies Home Medications Medication Instructions Recorded Confirmed Type Atorvastatin [Lipitor] 40 mg PO HS tab 09/10/23 12/05/23 Rx Mirtazapine [Remeron] 15 mg PO HS tab 09/10/23 12/05/23 Rx Thiamine [Vitamin B-1] 100 mg PO DAILY #30 tab 09/19/23 12/05/23 Rx Acetaminophen [Tylenol Arthritis] 650 mg PO Q6H PRN 11/05/23 12/05/23 History Citalopram Hydrobromide [CeleXA] 40 mg PO HS 11/05/23 12/05/23 History Famotidine [Pepcid] 10 mg PO DAILY 11/05/23 12/05/23 History Magnesium Oxide [Mag-Ox] 400 mg PO DAILY 11/05/23 12/05/23 History Naloxone HCl [Narcan] 4 mg NASAL ONCE PRN 11/05/23 12/05/23 History Naloxone [Narcan] 0.4 mg IM ONCE PRN 11/05/23 12/05/23 History Gabapentin [Neurontin] 600 mg PO TID@0700,1300,1900 #30 11/08/23 12/05/23 Rx cap Metoprolol Succinate (ER) [Toprol 25 mg PO DAILY 11/22/23 12/05/23 History Xl] Rivaroxaban [Xarelto] 2.5 mg PO BID@0700,1900 11/22/23 12/05/23 History Tamsulosin [Flomax] 0.4 mg PO DAILY 11/22/23 12/05/23 History Vancomycin 1,500 mg IVPB BID@0900,2100 11/22/23 12/05/23 History oxyCODONE-APAP 7.5-325MG [Percocet 1 tab PO Q4H 11/22/23 12/05/23 History 7.5-325 mg] oxyCODONE-APAP 7.5-325MG [Percocet 1 tab PO Q4HR PRN 11/22/23 12/05/23 History 7.5-325 mg] Ascorbic Acid [Vitamin C] 500 mg PO DAILY 12/05/23 12/05/23 History Aspirin EC [Ecotrin Low Dose] 81 mg PO DAILY 12/05/23 12/05/23 History Calcium Carbonate/Vitamin D3 1 tab PO DAILY 12/05/23 12/05/23 History [Calcium 600 mg-Vit D3 5 mcg (200 unit)] Allergies Allergy/AdvReac Type Severity Reaction Status Date / Time No Known Allergies Allergy Verified 12/05/23 12:31 Physical Exam Vitals: Vital Signs Temp Pulse Pulse Resp BP BP Pulse Ox 12/06/23 08:13 94 L 12/06/23 08:00 100.3 F H 77 17 101/58 12/06/23 05:51 104 H 22 12/06/23 05:45 104 H 24 12/06/23 04:51 101.7 F H 132 H 16 125/71 98 12/06/23 04:02 100.7 F H 12/06/23 02:47 16 120/66 94 L 12/06/23 02:35 101.3 F H 12/06/23 00:39 99.5 F 12/05/23 20:00 98.1 F 64 16 102/49 98 12/05/23 17:10 98.1 F 72 18 123/63 98 12/05/23 16:39 84 18 102/61 99 12/05/23 11:59 98.0 F 72 92/56 100 Intake and Output 12/05/23 12/06/23 12/06/23 22:59 06:59 14:59 Intake Total 130 230 Balance 130 230 Intake: IV 130 Sodium Chloride 0.9% 1, 130 000 ml @ 130 mls/hr IV . Q7H42M [facility] Rx#:[id number] Intake, IV Titration 130 100 Amount ACETAMINOPHEN IV (For NPO 100 ) 1,000 mg In Empty Bag 1 bag @ 400 mls/hr IVPB ONCE ONE Rx#:[id number] Sodium Chloride 0.9% 1, 130 000 ml @ 130 mls/hr IV . Q7H42M [facility] Rx#:[id number] Other: Voiding Method Urinal External Catheter Diaper Weight 90.718 kg Results 12/05/23 13:08 12/05/23 13:08 Cardiac Enzymes 12/05/23 12/06/23 Range/Units 13:08 06:51 AST 33 (17-59) U/L Troponin I 0.207 H* (0.000-0.034) ng/mL CBC 12/05/23 Range/Units 13:08 WBC 11.5 H (3.8-10.6) k/uL RBC 3.09 L (4.30-5.90) m/uL Hgb 7.8 L (13.0-17.5) gm/dL Hct 25.4 L (39.0-53.0) % Plt Count 584 H (150-450) k/uL Comprehensive Metabolic Panel 12/05/23 Range/Units 13:08 Sodium 137 (137-145) mmol/L Potassium 4.4 (3.5-5.1) mmol/L Chloride 108 H (98-107) mmol/L Carbon Dioxide 20 L (22-30) mmol/L BUN 19 (9-20) mg/dL Creatinine 2.15 H (0.66-1.25) mg/dL Glucose 95 (74-99) mg/dL Calcium 8.1 L (8.4-10.2) mg/dL AST 33 (17-59) U/L ALT 22 (4-49) U/L Alkaline Phosphatase 121 (38-126) U/L Total Protein 6.9 (6.3-8.2) g/dL Albumin 2.8 L (3.5-5.0) g/dL Current Medications Generic Name Dose Route Start Last Admin Trade Name Freq PRN Reason Stop Dose Admin Acetaminophen 650 mg 12/05/23 18:13 Acetaminophen Tab 325 Mg Tab PO Q6H PRN Fever and/ or Pain Acetaminophen 650 mg 12/05/23 23:31 12/06/23 02:27 Acetaminophen Suppository 650 Mg Supp RECTAL 650 mg Q6HR PRN Administration Fever and/ or Pain Ascorbic Acid 500 mg 12/06/23 09:00 Ascorbic Acid 500 Mg Tab PO DAILY [facility] Aspirin 81 mg 12/06/23 09:00 Aspirin 81 Mg PO DAILY [facility] Calcium Carbonate 1 each 12/06/23 09:00 Calcium Carb-Vit D 500 Mg-5 Mcg Tab PO DAILY [facility] Citalopram Hydrobromide 40 mg 12/05/23 21:00 12/05/23 20:41 Citalopram Hydrobromide 20 Mg Tab PO 40 mg HS OLVIN Administration Famotidine 10 mg 12/06/23 09:00 Famotidine 20 Mg Tab PO DAILY [facility] Hydromorphone HCl 1 mg 12/05/23 18:15 12/06/23 00:59 Hydromorphone 1 Mg/Ml 1 Ml Syringe IVP 1 mg Q4HR PRN Administration Pain Sodium Chloride 1,000 mls @ 130 mls/hr 12/05/23 15:30 12/06/23 08:13 Saline 0.9% IV 130 mls/hr .Q7H42M OLVIN Administration Cefepime HCl 2 gm/ Sodium 100 mls @ 25 mls/hr 12/06/23 00:00 12/06/23 01:37 Chloride IVPB 25 mls/hr Q12H OLVIN Administration Protocol Daptomycin 350 mg/ Sodium 50 mls @ 100 mls/hr 12/06/23 00:00 12/06/23 00:56 Chloride IVPB 100 mls/hr Q24H O[facility]IN Administration Protocol Magnesium Oxide 400 mg 12/06/23 09:00 Magnesium Oxide 400 Mg Tab PO DAILY [facility] Metoprolol Succinate 25 mg 12/06/23 09:00 Metoprolol Succinate (Er) 25 Mg Tab.Er.24h PO DAILY [facility] Mirtazapine 15 mg 12/05/23 21:00 12/05/23 20:41 Mirtazapine 15 Mg Tab PO 15 mg HS OLVIN Administration Naloxone HCl 0.2 mg 12/05/23 15:19 Naloxone 0.4 Mg/Ml 1 Ml Vial IV Q2M PRN Opioid Reversal Oxycodone/Acetaminophen 1 each 12/05/23 18:35 Oxycodone-Apap 7.5-325mg 1 Each Tab PO Q4H PRN pain Rivaroxaban 2.5 mg 12/05/23 19:00 12/06/23 06:45 Rivaroxaban 2.5 Mg Tablet PO Not Given BID@0700,1900 [facility] Protocol Tamsulosin HCl 0.4 mg 12/06/23 09:00 Tamsulosin 0.4 Mg Cap.Er.24h PO DAILY [facility] Thiamine HCl 100 mg 12/06/23 09:00 Thiamine 100 Mg Tab PO DAILY [facility] Intake and Output 12/05/23 12/06/23 12/06/23 22:59 06:59 14:59 Intake Total 130 230 Balance 130 230 Intake: IV 130 Sodium Chloride 0.9% 1, 130 000 ml @ 130 mls/hr IV . Q7H42M [facility] Rx#:[id number] Intake, IV Titration 130 100 Amount ACETAMINOPHEN IV (For NPO 100 ) 1,000 mg In Empty Bag 1 bag @ 400 mls/hr IVPB ONCE ONE Rx#:[id number] Sodium Chloride 0.9% 1, 130 000 ml @ 130 mls/hr IV . Q7H42M [facility] Rx#:[id number] Other: Voiding Method Urinal External Catheter Diaper Weight 90.718 kg 12/05/23 13:08 12/05/23 13:08
[2023-12-06 10:46] LABS: Basophils # (A) 0.05 X 10*3/uL (0.00-0.10); Basophils % (A) 0.3 %; Eosinophils # (A) 0.03 X 10*3/uL (0.04-0.35); Eosinophils % (A) 0.2 %; HCT 19.6 % (39.6-50.0); HGB 5.9 g/dL (13.0-17.0); Lymphocytes # (A) 0.68 X 10*3/uL (0.90-5.00); Lymphocytes % (A) 4.6 %; MCH 25.2 pg (27.0-32.0); MCHC 30.1 g/dL (32.0-37.0); MCV 83.8 FL (80.0-97.0); Mean Platelet Volume 9.4 FL (9.5-12.2); Monocytes # (A) 1.17 X 10*3/uL (0.20-1.00); NRBC Per 100 WBC 0 X 10*3/uL (0.00-0.01); Neutrophils # (A) 12.66 X 10*3/uL (1.80-7.70); Neutrophils % (A) 86.1 %; Platelet Count 475 X 10*3/uL (140-440); RBC 2.34 X 10*6/uL (4.40-5.60); RDW 16.1 % (11.5-14.5); WBC 14.71 X 10*3/uL (4.50-10.00)
[2023-12-06 10:54] LABS: BUN/Creat Ratio 6.83 Ratio (12.00-20.00); Blood Urea Nitrogen 20.5 mg/dL (9.0-27.0); Glucose 92 mg/dL (70-110)
[2023-12-06 10:55] LABS: Calcium 7.8 mg/dL (8.7-10.3); Carbon Dioxide 17.4 mmol/L (21.6-31.8); Chloride 106 mmol/L (96-109); Potassium 4.4 mmol/L (3.5-5.5); Sodium 137 mmol/L (135-145)
[2023-12-06] MEDS: ASPIRIN 81 MG PO SCH (11:29)
[2023-12-06] MEDS: ASCORBIC ACID 500 MG TAB PO SCH (11:29)
[2023-12-06] MEDS: TAMSULOSIN 0.4 MG CAP.ER.24H PO SCH (11:30)
[2023-12-06] MEDS: METOPROLOL SUCCINATE (ER) 25 MG TAB.ER.24H PO SCH (11:30)
[2023-12-06] MEDS: FAMOTIDINE 20 MG TAB PO SCH (11:30)
[2023-12-06] MEDS: THIAMINE 100 MG TAB PO SCH (11:30)
[2023-12-06] MEDS: CALCIUM CARB-VIT D 500 MG-5 MCG TAB PO SCH (11:30)
[2023-12-06] MEDS: MAGNESIUM OXIDE 400 MG TAB PO SCH (11:30)
[2023-12-06] MEDS: ACETAMINOPHEN TAB 325 MG TAB PO PRN (13:49)
--- NOTE | 2023-12-06 16:17 | P.PN ---
Subjective Progress Note Date: 12/06/23 Principal diagnosis: Reason for follow-up is sepsis and left lower extremity cellulitis Patient is a 58-year-old male with a past medical history significant for COPD also with a history of PAD with recent multiple admission to the hospital with necrotic left foot requiring revascularization recently did have a wound infection culture positive for MRSA and Pseudomonas patient did get a PICC line and was receiving IV vancomycin and cefepime at the half-way presented to the hospital mental status changes elevated vancomycin trough and creatinine. On today's evaluation that is 12/06/2023 patient did have significant change in his current clinical condition last night when he spiked a fever of 101.3 patient also become tachycardic and has been transferred to the ICU patient is currently breathing comfortably on 2 L current oxygen denies any chest pain shortness of breath or cough no worsening pain to the left lower extremity or any foul-smelling drainage. Patient white count is 14.71 creatinine 3.0 Objective - Vital Signs Vital signs: Vital Signs Temp 100.3 F H 12/06/23 08:00 Pulse 77 12/06/23 08:00 Resp 17 12/06/23 08:00 BP 101/58 12/06/23 08:00 Pulse Ox 94 L 12/06/23 08:13 FiO2 Intake & Output 12/05/23 12/06/23 12/06/23 18:59 06:59 18:59 Intake Total 130 230 Output Total 650 Balance 130 230 -650 Weight 90.718 kg Intake: IV 130 Sodium Chloride 0.9% 1, 130 000 ml @ 130 mls/hr IV . Q7H42M [facility] Rx#:[id number] Intake, IV Titration 130 100 Amount ACETAMINOPHEN IV (For NPO 100 ) 1,000 mg In Empty Bag 1 bag @ 400 mls/hr IVPB ONCE ONE Rx#:[id number] Sodium Chloride 0.9% 1, 130 000 ml @ 130 mls/hr IV . Q7H42M [facility] Rx#:[id number] Output: Urine 650 Uretheral (Stearns) 650 Other: Voiding Method Urinal External Catheter Diaper - Exam GENERAL DESCRIPTION: Middle-age male lying in bed in no distress RESPIRATORY SYSTEM: Unlabored breathing , decreased breath sounds at bases HEART: S1 S2 regular rate and rhythm , ABDOMEN: Soft , no tenderness EXTREMITIES: Left foot is necrotic overall swelling redness to the left leg slightly decreased - Labs CBC & Chem 7: 12/06/23 06:51 12/06/23 06:51 Labs: Abnormal Lab Results - Last 24 Hours (Table) 12/05/23 12/05/23 12/05/23 Range/Units 13:08 13:08 13:30 WBC 11.5 H (3.8-10.6) k/uL RBC 3.09 L (4.30-5.90) m/uL Hgb 7.8 L (13.0-17.5) gm/dL Hct 25.4 L (39.0-53.0) % MCH (27.0-32.0) pg MCHC 30.7 L (31.0-37.0) g/dL RDW (11.5-14.5) % Plt Count 584 H (150-450) k/uL MPV (9.5-12.2) FL Immature Gran # (0.00-0.04) X 10*3/uL Neutrophils # 8.9 H (1.3-7.7) k/uL Lymphocytes # (0.90-5.00) X 10*3/uL Monocytes # (0.20-1.00) X 10*3/uL Eosinophils # (0.04-0.35) X 10*3/uL Chloride 108 H (98-107) mmol/L Carbon Dioxide 20 L (22-30) mmol/L Anion Gap (4.00-12.00) mmol/L Creatinine 2.15 H (0.66-1.25) mg/dL Est GFR (CKD-EPI) (>=60) BUN/Creatinine Ratio (12.00-20.00) Ratio Calcium 8.1 L (8.4-10.2) mg/dL Troponin I (0.000-0.034) ng/mL Albumin 2.8 L (3.5-5.0) g/dL Urine Protein 1+ H (Negative) Urine Blood Small H (Negative) Amorphous Sediment Moderate H (None) /hpf Urine Bacteria Occasional H (None) /hpf Random Vancomycin 43.0 H* ug/mL 12/06/23 12/06/23 12/06/23 Range/Units 06:51 06:51 06:51 WBC 14.71 H (3.8-10.6) k/uL RBC 2.34 L (4.30-5.90) m/uL Hgb 5.9 A* (13.0-17.5) gm/dL Hct 19.6 A* (39.0-53.0) % MCH 25.2 L (27.0-32.0) pg MCHC 30.1 L (31.0-37.0) g/dL RDW 16.1 H (11.5-14.5) % Plt Count 475 H (150-450) k/uL MPV 9.4 L (9.5-12.2) FL Immature Gran # 0.12 H (0.00-0.04) X 10*3/uL Neutrophils # 12.66 H (1.3-7.7) k/uL Lymphocytes # 0.68 L (0.90-5.00) X 10*3/uL Monocytes # 1.17 H (0.20-1.00) X 10*3/uL Eosinophils # 0.03 L (0.04-0.35) X 10*3/uL Chloride (98-107) mmol/L Carbon Dioxide 17.4 L (22-30) mmol/L Anion Gap 13.60 H (4.00-12.00) mmol/L Creatinine 3.0 H (0.66-1.25) mg/dL Est GFR (CKD-EPI) 23 L (>=60) BUN/Creatinine Ratio 6.83 L (12.00-20.00) Ratio Calcium 7.8 L (8.4-10.2) mg/dL Troponin I 0.207 H* (0.000-0.034) ng/mL Albumin (3.5-5.0) g/dL Urine Protein (Negative) Urine Blood (Negative) Amorphous Sediment (None) /hpf Urine Bacteria (None) /hpf Random Vancomycin ug/mL Assessment and Plan (1) Leukocytosis Current Visit: Yes Status: Acute Code(s): D72.829 - ELEVATED WHITE BLOOD CELL COUNT, UNSPECIFIED SNOMED Code(s): 881691911 (2) Cellulitis of left leg Current Visit: No Status: Acute Code(s): L03.116 - CELLULITIS OF LEFT LOWER LIMB SNOMED Code(s): 10249539858591121 (3) Infected wound Current Visit: No Status: Acute Code(s): T14.8XXA - OTHER INJURY OF UNSPECIFIED BODY REGION, INITIAL ENCOUNTER; L08.9 - LOCAL INFECTION OF THE SKIN AND SUBCUTANEOUS TISSUE, UNSP SNOMED Code(s): 32506144 Plan: 1patient with a chronic nonhealing wound to the left lower extremity in this patient who did have significant PAD requiring revascularization surgery now with more necrotic left foot wound left lower extremity and cellulitis with a previous culture positive for MRSA and Pseudomonas 2-patient to continue with daptomycin and cefepime while waiting for the workup to be completed 3patient will benefit from vascular surgery evaluation as for as necrotic left foot and need for surgery discussed with admitting team and mother at the bedside Dictation was produced using [employer] dictation software. please excuse any grammatical, word or spelling errors. Time with Patient: Less than 30
[2023-12-06] MEDS: FUROSEMIDE 10 MG/ML 2 ML VIAL IV ONE (16:48)
--- NOTE | 2023-12-06 17:19 | P.GSCN ---
History of Present Illness Consult date: 12/06/23 Reason for Consult: Questionable ischemia, previous lower extremity bypass Requesting physician: Yolie Ivy History of present illness: This is a pleasant 58-year-old male with a past medical history of COPD, nicot ine and alcohol abuse, and peripheral arterial disease who was brought into the emergency department for altered mental status changes. History of peripheral arterial disease and critical limb ischemia of the left lower extremity who underwent left common femoral endarterectomy and femoral to below the knee popliteal artery bypass and left femoral popliteal bypass balloon angioplasty on 09/15/[address] Payne. The patient has been at [facility] and getting wound care there. He was admitted earlier this month with dehiscence of his surgical site and left lower extremity wound. At that time was recommended to continue local wound care and IV antibiotics. He went to [facility] with a PICC line vancomycin and cefepime for positive wound cultures MRSA and Pseudomonas. Patient was admitted for altered mental status changes to the medical floor then had developed sinus tachycardia with chest pain and was transferred to the ICU. He was afebrile on admission he did spike fever through the night with a max temp of 101.3. He states he does have pain to his left lower extremity although it is not any worse than previously. He currently denies any shortness of breath or chest pain he is getting blood transfusion at this time. He is lethargic. During prior hospitalization amputation of the left lower extremity was discussed with the patient due to severity of wounds however patient was not interested at that time and wanted to proceed with wound care to see if wounds would heal following bypass. Today's labs WBC 14.7 hemoglobin 5.9 platelet count 475,000 sodium 137 potassium 4.4 BUN 20.5 creatinine 3.0 troponin 0 point 2 repeat 0.617 BNP 12,700. Review of Systems A 14 point review systems was completed all pertinent positives and negatives as stated in the HPI. Past Medical History Past Medical History: COPD, Vascular Disorder Additional Past Medical History / Comment(s): PVD, DVT R leg-recent R femoral popliteal bypass at [facility] 02/22/17, History of Any Multi-Drug Resistant Organisms: MRSA Year Discovered:: 11/06/23 MRSA MDRO Source:: Left Leg Past Surgical History: Orthopedic Surgery Additional Past Surgical History / Comment(s): R fem pop bypass 02/22/17 HFH, bilateral knee arthroscopic surgeries. Past Anesthesia/Blood Transfusion Reactions: No Reported Reaction Additional Past Anesthesia/Blood Transfusion Reaction / Comm: Pt is currently receiving blood-no reaction at this time. Past Psychological History: Anxiety, Depression Smoking Status: Current every day smoker Past Alcohol Use History: Daily, Heavy Past Drug Use History: None Reported - Past Family History Mother Family Medical History: Cancer, Hyperlipidemia Additional Family Medical History / Comment(s): Mother had skin cancer. She is living. Father Family Medical History: Hyperlipidemia, Hypertension Additional Family Medical History / Comment(s): Father has heart condition. Medications and Allergies Home Medications Medication Instructions Recorded Confirmed Type Atorvastatin [Lipitor] 40 mg PO HS tab 09/10/23 12/05/23 Rx Mirtazapine [Remeron] 15 mg PO HS tab 09/10/23 12/05/23 Rx Thiamine [Vitamin B-1] 100 mg PO DAILY #30 tab 09/19/23 12/05/23 Rx Acetaminophen [Tylenol Arthritis] 650 mg PO Q6H PRN 11/05/23 12/05/23 History Citalopram Hydrobromide [CeleXA] 40 mg PO HS 11/05/23 12/05/23 History Famotidine [Pepcid] 10 mg PO DAILY 11/05/23 12/05/23 History Magnesium Oxide [Mag-Ox] 400 mg PO DAILY 11/05/23 12/05/23 History Naloxone HCl [Narcan] 4 mg NASAL ONCE PRN 11/05/23 12/05/23 History Naloxone [Narcan] 0.4 mg IM ONCE PRN 11/05/23 12/05/23 History Gabapentin [Neurontin] 600 mg PO TID@0700,1300,1900 #30 11/08/23 12/05/23 Rx cap Metoprolol Succinate (ER) [Toprol 25 mg PO DAILY 11/22/23 12/05/23 History Xl] Rivaroxaban [Xarelto] 2.5 mg PO BID@0700,1900 11/22/23 12/05/23 History Tamsulosin [Flomax] 0.4 mg PO DAILY 11/22/23 12/05/23 History Vancomycin 1,500 mg IVPB BID@0900,2100 11/22/23 12/05/23 History oxyCODONE-APAP 7.5-325MG [Percocet 1 tab PO Q4H 11/22/23 12/05/23 History 7.5-325 mg] oxyCODONE-APAP 7.5-325MG [Percocet 1 tab PO Q4HR PRN 11/22/23 12/05/23 History 7.5-325 mg] Ascorbic Acid [Vitamin C] 500 mg PO DAILY 12/05/23 12/05/23 History Aspirin EC [Ecotrin Low Dose] 81 mg PO DAILY 12/05/23 12/05/23 History Calcium Carbonate/Vitamin D3 1 tab PO DAILY 12/05/23 12/05/23 History [Calcium 600 mg-Vit D3 5 mcg (200 unit)] Allergies Allergy/AdvReac Type Severity Reaction Status Date / Time No Known Allergies Allergy Verified 12/05/23 12:31 Surgical - Exam Vital Signs Temp Pulse BP Pulse Ox 98.0 F 72 92/56 100 12/05/23 11:59 12/05/23 11:59 12/05/23 11:59 12/05/23 11:59 General appearance: The patient is alert, oriented, but lethargic, appears in no acute distress. HET: Head is normocephalic and atraumatic. Pupils are equal and reactive. Neck: Supple. Heart: Regular. Lungs: Equal expansion, normal respiratory effort. Abdomen: Soft, nontender, nondistended. Extremities: Left lower extremity incision on thigh well-healed. Doppler signal over bypass present. Medial aspect of calf incision with dehiscence. Nonhealing ulcers to distal lower leg, gangrene foot with tendon exposure dorsal aspect, plantar aspect of foot with area of viable tissue. Neurological: Patient is lethargic, some confusion but otherwise alert and orien conchita. Results - Labs 12/06/23 06:51 12/06/23 06:51 Abnormal Lab Results - Last 24 Hours (Table) 12/06/23 12/06/23 12/06/23 Range/Units 06:51 06:51 06:51 WBC 14.71 H (4.50-10.00) X 10*3/uL RBC 2.34 L (4.40-5.60) X 10*6/uL Hgb 5.9 A* (13.0-17.0) g/dL Hct 19.6 A* (39.6-50.0) % MCH 25.2 L (27.0-32.0) pg MCHC 30.1 L (32.0-37.0) g/dL RDW 16.1 H (11.5-14.5) % Plt Count 475 H (140-440) X 10*3/uL MPV 9.4 L (9.5-12.2) FL Immature Gran # 0.12 H (0.00-0.04) X 10*3/uL Neutrophils # 12.66 H (1.80-7.70) X 10*3/uL Lymphocytes # 0.68 L (0.90-5.00) X 10*3/uL Monocytes # 1.17 H (0.20-1.00) X 10*3/uL Eosinophils # 0.03 L (0.04-0.35) X 10*3/uL Carbon Dioxide 17.4 L (21.6-31.8) mmol/L Anion Gap 13.60 H (4.00-12.00) mmol/L Creatinine 3.0 H (0.6-1.5) mg/dL Est GFR (CKD-EPI) 23 L (>=60) BUN/Creatinine Ratio 6.83 L (12.00-20.00) Ratio Calcium 7.8 L (8.7-10.3) mg/dL Troponin I 0.207 H* (0.000-0.034) ng/mL Crossmatch 12/06/23 12/06/23 Range/Units 10:35 12:11 WBC (4.50-10.00) X 10*3/uL RBC (4.40-5.60) X 10*6/uL Hgb (13.0-17.0) g/dL Hct (39.6-50.0) % MCH (27.0-32.0) pg MCHC (32.0-37.0) g/dL RDW (11.5-14.5) % Plt Count (140-440) X 10*3/uL MPV (9.5-12.2) FL Immature Gran # (0.00-0.04) X 10*3/uL Neutrophils # (1.80-7.70) X 10*3/uL Lymphocytes # (0.90-5.00) X 10*3/uL Monocytes # (0.20-1.00) X 10*3/uL Eosinophils # (0.04-0.35) X 10*3/uL Carbon Dioxide (21.6-31.8) mmol/L Anion Gap (4.00-12.00) mmol/L Creatinine (0.6-1.5) mg/dL Est GFR (CKD-EPI) (>=60) BUN/Creatinine Ratio (12.00-20.00) Ratio Calcium (8.7-10.3) mg/dL Troponin I 0.617 H* (0.000-0.034) ng/mL Crossmatch See Detail Diabetes panel 12/06/23 Range/Units 06:51 Sodium 137 (135-145) mmol/L Potassium 4.4 (3.5-5.5) mmol/L Chloride 106 (96-109) mmol/L Carbon Dioxide 17.4 L (21.6-31.8) mmol/L BUN 20.5 (9.0-27.0) mg/dL Creatinine 3.0 H (0.6-1.5) mg/dL Glucose 92 (70-110) mg/dL Calcium 7.8 L (8.7-10.3) mg/dL Calcium panel 12/06/23 Range/Units 06:51 Calcium 7.8 L (8.7-10.3) mg/dL Pituitary panel 12/06/23 Range/Units 06:51 Sodium 137 (135-145) mmol/L Potassium 4.4 (3.5-5.5) mmol/L Chloride 106 (96-109) mmol/L Carbon Dioxide 17.4 L (21.6-31.8) mmol/L BUN 20.5 (9.0-27.0) mg/dL Creatinine 3.0 H (0.6-1.5) mg/dL Glucose 92 (70-110) mg/dL Calcium 7.8 L (8.7-10.3) mg/dL Adrenal panel 12/06/23 Range/Units 06:51 Sodium 137 (135-145) mmol/L Potassium 4.4 (3.5-5.5) mmol/L Chloride 106 (96-109) mmol/L Carbon Dioxide 17.4 L (21.6-31.8) mmol/L BUN 20.5 (9.0-27.0) mg/dL Creatinine 3.0 H (0.6-1.5) mg/dL Glucose 92 (70-110) mg/dL Calcium 7.8 L (8.7-10.3) mg/dL Assessment and Plan Assessment: 1. Gangrene left foot 2. History of peripheral arterial disease with critical limb ischemia of the left lower extremity status post left common femoral endarterectomy and femoral to below-knee popliteal bypass 3. Nonhealing left lower extremity wounds 4. Altered mental status changes 5. Leukocytosis 6. Fever 7. Recent wound culture with MRSA and Pseudomonas on outpatient IV antibiotics Plan: 1. Continue local wound care, will consult wound clinic 2. Continue recommendations from infectious disease 3. Continue with recommendations from cardiology 4. Rest of medical management per primary medical team 5. Further recommendations forthcoming per vascular surgeon based on clinical course Thank you for this consultation, we will continue to follow. The impression and plan of care has been dictated as directed. I performed a history and examination of this patient, discussed the same with the dictator. I agree with the dictator's note ,documented as a scribe. Any additional findings or plans will be noted.
[2023-12-06 22:15] LABS: Basophils # (A) 0.1 k/uL (0-0.2); Basophils % (A) 0 %; Eosinophils # (A) 0.1 k/uL (0-0.7); Eosinophils % (A) 0 %; HCT 24.2 % (39.0-53.0); HGB 7.5 gm/dL (13.0-17.5); Hypochromasia Moderate; Lymphocytes # (A) 0.7 k/uL (1.0-4.8); Lymphocytes % (A) 4 %; MCH 25.7 pg (25.0-35.0); MCHC 30.9 g/dL (31.0-37.0); Mean Platelet Volume 7.7; Monocytes # (A) 1.6 k/uL (0-1.0); Monocytes % (A) 9 %; Neutrophils % (A) 84 %; Platelet Count 473 k/uL (150-450); Poikilocytosis Slight; RBC 2.91 m/uL (4.30-5.90); RDW 14.7 % (11.5-15.5); WBC 16.7 k/uL (3.8-10.6)
--- NOTE | 2023-12-07 00:01 | HP ---
HISTORY AND PHYSICAL CHIEF COMPLAINT: Change in mental status. HISTORY OF PRESENT ILLNESS: This is a 58-year-old gentleman with a past medical history of multiple medical problems, was in [facility]. The patient had vascular surgery on the left leg and also had some infection. The patient is on IV antibiotics. The patient is seeing Dr. Shaffer as an outpatient. The patient was trying to eat breakfast yesterday and had difficulty in feeding himself. The patient is confused and the patient was taken to [facility] and subsequently admitted to ICU at this time. The patient has significant black dry gangrenous type of changes in the left lower leg and the patient admitted for further evaluation and treatment. Multiple consultants are following the patient closely. Hemoglobin is 5.9, white count is 14.7. The patient had widely fluctuating hemoglobin previously. There is no history of any fever, rigors, or chills. The troponin is indeterminate and BNP is also elevated. Currently, the patient is drowsy, unable to give a coherent history, most of the history is taken by discussion with staff and review of the chart. The chest x-ray showed some evidence of CHF also. The patient had apparent nephrotoxicity also from secondary to vancomycin. The creatinine was elevated up to 3 at this time. PAST MEDICAL HISTORY: Reviewed. History of peripheral vascular disease surgery, infection, antibiotics. MEDICATIONS: Prior to admission include oxycodone, gabapentin, dose and rest of medications reviewed. ALLERGIES: None. Family history, social history, and review of systems could not be taken because of the patient's change in mental status. PHYSICAL EXAMINATION: VITAL SIGNS: Pulse is 77, blood pressure 101/58, respirations 17. HEENT: Conjunctivae normal. NECK: No jugular venous distention. CARDIOVASCULAR: S1, S2. RESPIRATIONS: Diminished at the bases, scattered rhonchi and crackles. ABDOMEN: Soft, nontender. LEGS: Left leg infection as well as dry gangrene also present. NERVOUS SYSTEM: Could not be tested, diffusely weak. SKIN: No ulcer, rash, bleeding. JOINTS: No active deforming arthropathy. LABORATORY DATA: Reviewed WBC 14.7. ASSESSMENT: 1. Left leg postoperative wound infection, dry gangrene, and possible sepsis. 2. Change in mental status, metabolic encephalopathy. 3. Acute renal failure, possible vancomycin toxicity. 4. Severe anemia, possible blood loss, multifactorial. 5. Elevated WBC. 6. Troponin 0.617, possibly secondary to renal failure per Cardiology. 7. Chronic obstructive pulmonary disease. 8. DVT of the right leg. 9. History of MRSA. 10.Anxiety, depression. 11.History of EtOH. 12.Possible CHF acute exacerbation, acute on chronic diastolic dysfunction. RECOMMENDATIONS AND DISCUSSION: This 58-year-old gentleman presented with multiple complex medical issues, we will monitor the patient closely, broad-spectrum IV antibiotics. Avoid nephrotoxic medications and closely monitor with Infectious Disease, Nephrology, and Cardiology. We will continue to monitor. Prognosis is extremely guarded because of multiple complex medical issues. Further recommendations to follow. See orders for details. MMODL / IJN: [id number] /
--- NOTE | 2023-12-07 05:10 | CT ---
EXAMINATION TYPE: CT brain wo con DATE OF EXAM: 12/06/2023 HISTORY: confusion/septic. pt admitted for acute encephalopathy, divine. Stroke. CT DLP: 1183.9 mGycm. Automated Exposure Control for Dose Reduction was Utilized. TECHNIQUE: CT scan of the head is performed without contrast. COMPARISON: None. FINDINGS: There is no acute intracranial hemorrhage or midline shift identified. There is mild to m oderate diffuse ventricular and sulcal prominence consistent with diffuse age-related cerebral atroph y. There is moderate low-attenuation in the deep and periventricular white matter most likely consis tent with chronic small vessel ischemic change in patient of this age. The globes are intact and the visualized sinuses are clear. IMPRESSION: No acute intracranial hemorrhage or midline shift. There is [id number]-[id number] diffuse ag e-related cerebral atrophy and moderate probable chronic small vessel ischemic change noted. If clinical concern for acute stroke persists further investigation with MRI study may BE warranted.
[2023-12-07 06:07] LABS: Basophils # (A) 0.1 k/uL (0-0.2); Basophils % (A) 0 %; Eosinophils # (A) 0.1 k/uL (0-0.7); Eosinophils % (A) 1 %; HCT 24.6 % (39.0-53.0); HGB 7.3 gm/dL (13.0-17.5); Hypochromasia Marked; Lymphocytes # (A) 0.9 k/uL (1.0-4.8); Lymphocytes % (A) 6 %; MCH 25.5 pg (25.0-35.0); MCHC 29.7 g/dL (31.0-37.0); MCV 85.8 fL (80.0-100.0); Mean Platelet Volume 7.6; Monocytes # (A) 0.8 k/uL (0-1.0); Monocytes % (A) 6 %; Neutrophils # (A) 13.1 k/uL (1.3-7.7); Neutrophils % (A) 87 %; Platelet Count 455 k/uL (150-450); RBC 2.87 m/uL (4.30-5.90); RDW 15.2 % (11.5-15.5); WBC 15.2 k/uL (3.8-10.6)
[2023-12-07 06:24] LABS: ALT 15 U/L (4-49); AST 31 U/L (17-59); African American GFR (CKD) 20 (>60 ml/min/1.73 sqM); Albumin 2.4 g/dL (3.5-5.0); Alkaline Phosphatase 88 U/L (38-126); Anion Gap 9 mmol/L; Blood Urea Nitrogen 29 mg/dL (9-20); Calcium 7.8 mg/dL (8.4-10.2); Carbon Dioxide 15 mmol/L (22-30); Chloride 114 mmol/L (98-107); Glucose 87 mg/dL (74-99); Non-African American GFR(CKD) 18 (>60 ml/min/1.73 sqM); Potassium 4.5 mmol/L (3.5-5.1); Sodium 138 mmol/L (137-145); Total Bilirubin 0.6 mg/dL (0.2-1.3)
--- NOTE | 2023-12-07 07:36 | XR ---
EXAMINATION TYPE: XR chest 1V portable DATE OF EXAM: 12/07/2023 COMPARISON: 12/06/2023 INDICATION: CHF TECHNIQUE: Single frontal view of the chest is obtained. FINDINGS: The heart size is mildly prominent. The pulmonary vasculature is prominent. Diffuse increased lung markings are present. Correlate for worsening pulmonary edema IMPRESSION: 1. Clinical correlation recommended for congestive heart failure. Follow-up is recommended. Findings are worsened from comparison.
--- NOTE | 2023-12-07 09:23 | P.PN ---
Subjective Progress Note Date: 12/07/23 The patient is a 58-year-old male who is currently admitted to the hospital with mental status changes and acute kidney injury. The patient has been treated for severe peripheral vascular disease and gangrene over the last several months. The patient has developed nephrotoxicity secondary to vancomycin. The patient has developed acute anemia over the last 24 hours and received 1 unit of packed red blood cells, followed by a dose of furosemide. Chest x-ray this morning shows increased pulmonary vascular congestion. The patient was seen by vascular surgery and it is recommended that he undergo amputation of his left lower extremity. Patient was interviewed and examined resting in bed. He is much more alert today. He denies any current chest pain or chest pressure. No difficulty breathing. He denies any pain in his left lower extremity GENERAL: Well-appearing, well-nourished and in no acute distress. NECK: Supple without JVD or thyromegaly. LUNGS: Breath sounds diminished to auscultation bilaterally. Respiration equal and unlabored. Fine crackles noted in left lower lobe HEART: Regular rate and rhythm without murmurs, rubs or gallops. S1 and S2 heard. EXTREMITIES: Normal range of motion, no edema in right lower extremity. +2 pulse. Left lower extremity in dressing. TELEMETRY: Sinus rhythm overnight LABS: WBC 15.2, hemoglobin 7.3, hematocrit 24.6, platelet 455, sodium 138, potassium 4.5, BUN 29, creatinine 3.57, AST 31, ALT 15 IMPRESSION: Elevated troponin, likely secondary to nephrotoxicity Vancomycin toxicity Acute encephalopathy Peripheral vascular disease, status post revascularization Left lower extremity cellulitis History of cardiomyopathy, EF 45% Acute on chronic kidney injury, worsening function PLAN: Additional single dose of furosemide Aggressive pulmonary hygiene Awaiting results of echocardiogram No need for additional troponin levels Further recommendations to be based upon clinical course I am dictating on behalf of Dr Derek Funez's history/physical and assessment/plan. Objective - Vital Signs Vital signs: Vital Signs Temp 98.0 F 12/07/23 01:24 Pulse 71 12/07/23 01:24 Resp 16 12/07/23 01:24 BP 115/69 12/07/23 01:24 Pulse Ox 95 12/07/23 01:24 FiO2 Intake & Output 12/06/23 12/07/23 12/07/23 18:59 06:59 18:59 Intake Total 900 760 Output Total 1250 800 Balance -350 -40 Intake: IV 900 240 Sodium Chloride 0.9% 1, 900 240 000 ml @ 75 mls/hr IV . [id number] OLVIN Rx#:[id number] Intake, IV Titration 150 Amount Cefepime 2 gm In Sodium 100 Chloride 0.9% 100 ml @ 25 mls/hr IVPB Q12H OLVIN Rx# :[id number] DAPTOmycin 350 mg In 50 Sodium Chloride 0.9% 50 ml @ 100 mls/hr IVPB Q24H OLVIN Rx#:[id number] Oral 60 Blood Product 0 310 Rc As-1 Unit 0 310 [id number] Rc As-1 Unit 0 [id number] Output: Urine 1250 800 Uretheral (Stearns) 650 Other: Voiding Method External Catheter Indwelling Catheter # Bowel Movements 0 - Labs CBC & Chem 7: 12/07/23 05:46 12/07/23 05:39 Labs: Abnormal Lab Results - Last 24 Hours (Table) 12/06/23 12/06/23 12/06/23 Range/Units 06:51 06:51 10:35 WBC 14.71 H (4.50-10.00) X 10*3/uL RBC 2.34 L (4.40-5.60) X 10*6/uL Hgb 5.9 A* (13.0-17.0) g/dL Hct 19.6 A* (39.6-50.0) % MCH 25.2 L (27.0-32.0) pg MCHC 30.1 L (32.0-37.0) g/dL RDW 16.1 H (11.5-14.5) % Plt Count 475 H (140-440) X 10*3/uL MPV 9.4 L (9.5-12.2) FL Immature Gran # 0.12 H (0.00-0.04) X 10*3/uL Neutrophils # 12.66 H (1.80-7.70) X 10*3/uL Lymphocytes # 0.68 L (0.90-5.00) X 10*3/uL Monocytes # 1.17 H (0.20-1.00) X 10*3/uL Eosinophils # 0.03 L (0.04-0.35) X 10*3/uL Chloride (98-107) mmol/L Carbon Dioxide 17.4 L (21.6-31.8) mmol/L Anion Gap 13.60 H (4.00-12.00) mmol/L BUN (9-20) mg/dL Creatinine 3.0 H (0.6-1.5) mg/dL Est GFR (CKD-EPI) 23 L (>=60) BUN/Creatinine Ratio 6.83 L (12.00-20.00) Ratio Calcium 7.8 L (8.7-10.3) mg/dL Troponin I 0.617 H* (0.000-0.034) ng/mL Total Protein (6.3-8.2) g/dL Albumin (3.5-5.0) g/dL Crossmatch 12/06/23 12/06/23 12/07/23 Range/Units 12:11 21:57 05:39 WBC 16.7 H (4.50-10.00) X 10*3/uL RBC 2.91 L (4.40-5.60) X 10*6/uL Hgb 7.5 L (13.0-17.0) g/dL Hct 24.2 L (39.6-50.0) % MCH (27.0-32.0) pg MCHC 30.9 L (32.0-37.0) g/dL RDW (11.5-14.5) % Plt Count 473 H (140-440) X 10*3/uL MPV (9.5-12.2) FL Immature Gran # (0.00-0.04) X 10*3/uL Neutrophils # 14.0 H (1.80-7.70) X 10*3/uL Lymphocytes # 0.7 L (0.90-5.00) X 10*3/uL Monocytes # 1.6 H (0.20-1.00) X 10*3/uL Eosinophils # (0.04-0.35) X 10*3/uL Chloride 114 H (98-107) mmol/L Carbon Dioxide 15 L (21.6-31.8) mmol/L Anion Gap (4.00-12.00) mmol/L BUN 29 H (9-20) mg/dL Creatinine 3.57 H (0.6-1.5) mg/dL Est GFR (CKD-EPI) (>=60) BUN/Creatinine Ratio (12.00-20.00) Ratio Calcium 7.8 L (8.7-10.3) mg/dL Troponin I (0.000-0.034) ng/mL Total Protein 6.0 L (6.3-8.2) g/dL Albumin 2.4 L (3.5-5.0) g/dL Crossmatch See Detail 12/07/23 Range/Units 05:46 WBC 15.2 H (4.50-10.00) X 10*3/uL RBC 2.87 L (4.40-5.60) X 10*6/uL Hgb 7.3 L (13.0-17.0) g/dL Hct 24.6 L (39.6-50.0) % MCH (27.0-32.0) pg MCHC 29.7 L (32.0-37.0) g/dL RDW (11.5-14.5) % Plt Count 455 H (140-440) X 10*3/uL MPV (9.5-12.2) FL Immature Gran # (0.00-0.04) X 10*3/uL Neutrophils # 13.1 H (1.80-7.70) X 10*3/uL Lymphocytes # 0.9 L (0.90-5.00) X 10*3/uL Monocytes # (0.20-1.00) X 10*3/uL Eosinophils # (0.04-0.35) X 10*3/uL Chloride (98-107) mmol/L Carbon Dioxide (21.6-31.8) mmol/L Anion Gap (4.00-12.00) mmol/L BUN (9-20) mg/dL Creatinine (0.6-1.5) mg/dL Est GFR (CKD-EPI) (>=60) BUN/Creatinine Ratio (12.00-20.00) Ratio Calcium (8.7-10.3) mg/dL Troponin I (0.000-0.034) ng/mL Total Protein (6.3-8.2) g/dL Albumin (3.5-5.0) g/dL Crossmatch
[2023-12-07] MEDS: FUROSEMIDE 10 MG/ML 2 ML VIAL IV ONE (09:28)
--- NOTE | 2023-12-07 10:20 | P.CONS ---
History of Present Illness - History of Present Illness This is a 58-year-old patient with history of peripheral vascular disease. Dilip wilson had a femoropopliteal bypass at the end of August. Patient has a wound dehiscence of the medial distal incision. Nonhealing ulceration to the left left lateral ankle. And wet gangrene noted to the left foot. Patient has significant amount of dry eschar gangrene to the dorsal and plantar aspect of the left foot. The left calf medial incisional ulceration cluster of 2 measuring approximately 1 x 1 x 1 cm. No granulation noted within the wound bed. Serous drainage present. Review Of Systems: Constitutional: No fever, no chills, no night sweats. No weight change. No weakness, fatigue or lethargy. No daytime sleepiness. Integumentary:reports wounds, no lesions. No rash or pruritus. No unusual bruising. No change in hair or nails. Physical exam: General Appearance: Alert, cooperative, no distress, appears stated age. Skin: See HPI all other Skin color, texture, tugor normal, no rashes or lesions. Neurologic: Alert oriented x3 Assessment: 1. Gangrene to the left foot 2. Nonhealing ulceration left calf with muscle involvement 3. Arthrosclerosis with ulceration of left ankle Plan: 1. Vascular surgery's recommendation is for amputation. Patient is agreeable at this time. At this time there is no wound care orders needed. Thank you for the consultation any questions please contact the wound care center DNP note has been reviewed and discussed with Dr. Beal and the impression and plan of care has been directed as dictated. Past Medical History Past Medical History: COPD, Vascular Disorder Additional Past Medical History / Comment(s): PVD, DVT R leg-recent R femoral popliteal bypass at [facility] 02/22/17, History of Any Multi-Drug Resistant Organisms: MRSA Year Discovered:: 11/06/23 MRSA MDRO Source:: Left Leg Past Surgical History: Orthopedic Surgery Additional Past Surgical History / Comment(s): R fem pop bypass 02/22/17 [facility], bilateral knee arthroscopic surgeries. Past Anesthesia/Blood Transfusion Reactions: No Reported Reaction Additional Past Anesthesia/Blood Transfusion Reaction / Comm: Pt is currently receiving blood-no reaction at this time. Past Psychological History: Anxiety, Depression Smoking Status: Current every day smoker Past Alcohol Use History: Daily, Heavy Past Drug Use History: None Reported - Past Family History Mother Family Medical History: Cancer, Hyperlipidemia Additional Family Medical History / Comment(s): Mother had skin cancer. She is living. Father Family Medical History: Hyperlipidemia, Hypertension Additional Family Medical History / Comment(s): Father has heart condition. Medications and Allergies Home Medications Medication Instructions Recorded Confirmed Type Atorvastatin [Lipitor] 40 mg PO HS tab 09/10/23 12/05/23 Rx Mirtazapine [Remeron] 15 mg PO HS tab 09/10/23 12/05/23 Rx Thiamine [Vitamin B-1] 100 mg PO DAILY #30 tab 09/19/23 12/05/23 Rx Acetaminophen [Tylenol Arthritis] 650 mg PO Q6H PRN 11/05/23 12/05/23 History Citalopram Hydrobromide [CeleXA] 40 mg PO HS 11/05/23 12/05/23 History Famotidine [Pepcid] 10 mg PO DAILY 11/05/23 12/05/23 History Magnesium Oxide [Mag-Ox] 400 mg PO DAILY 11/05/23 12/05/23 History Naloxone HCl [Narcan] 4 mg NASAL ONCE PRN 11/05/23 12/05/23 History Naloxone [Narcan] 0.4 mg IM ONCE PRN 11/05/23 12/05/23 History Gabapentin [Neurontin] 600 mg PO TID@0700,1300,1900 #30 11/08/23 12/05/23 Rx cap Metoprolol Succinate (ER) [Toprol 25 mg PO DAILY 11/22/23 12/05/23 History Xl] Rivaroxaban [Xarelto] 2.5 mg PO BID@0700,1900 11/22/23 12/05/23 History Tamsulosin [Flomax] 0.4 mg PO DAILY 11/22/23 12/05/23 History Vancomycin 1,500 mg IVPB BID@0900,2100 11/22/23 12/05/23 History oxyCODONE-APAP 7.5-325MG [Percocet 1 tab PO Q4H 11/22/23 12/05/23 History 7.5-325 mg] oxyCODONE-APAP 7.5-325MG [Percocet 1 tab PO Q4HR PRN 11/22/23 12/05/23 History 7.5-325 mg] Ascorbic Acid [Vitamin C] 500 mg PO DAILY 12/05/23 12/05/23 History Aspirin EC [Ecotrin Low Dose] 81 mg PO DAILY 12/05/23 12/05/23 History Calcium Carbonate/Vitamin D3 1 tab PO DAILY 12/05/23 12/05/23 History [Calcium 600 mg-Vit D3 5 mcg (200 unit)] Allergies Allergy/AdvReac Type Severity Reaction Status Date / Time No Known Allergies Allergy Verified 12/05/23 12:31 Physical Exam Vitals: Vital Signs Temp Pulse Pulse Resp BP BP Pulse Ox 12/07/23 01:24 98.0 F 71 16 115/69 95 12/06/23 21:50 102 F H 12/06/23 20:20 99.4 F 90 20 130/73 99 12/06/23 20:00 99.4 F 90 20 130/73 99 12/06/23 17:37 98.9 F 84 16 128/80 99 12/06/23 17:17 99.3 F 90 18 130/75 99 12/06/23 16:37 99.1 F 81 16 115/81 99 12/06/23 16:00 99.1 F 84 18 118/69 100 12/06/23 14:11 98.9 F 77 19 125/70 99 12/06/23 13:51 98.8 F 99 18 111/67 98 12/06/23 13:41 99.1 F 85 16 125/78 98 Intake and Output 12/06/23 12/07/23 12/07/23 22:59 06:59 14:59 Intake Total 1210 450 Output Total 600 800 Balance 610 -350 Intake: IV 900 240 Sodium Chloride 0.9% 1, 900 240 000 ml @ 75 mls/hr IV . [id number] [facility] Rx#:[id number] Intake, IV Titration 150 Amount Cefepime 2 gm In Sodium 100 Chloride 0.9% 100 ml @ 25 mls/hr IVPB Q12H [facility] Rx# :[id number] DAPTOmycin 350 mg In 50 Sodium Chloride 0.9% 50 ml @ 100 mls/hr IVPB Q24H [facility] Rx#:[id number] Oral 60 Blood Product 310 Rc As-1 Unit 310 [id number] Output: Urine 600 800 Other: Voiding Method Indwelling Catheter # Bowel Movements 0 Results CBC & Chem 7: 12/07/23 05:46 12/07/23 05:39 Labs: Abnormal Lab Results - Last 24 Hours (Table) 12/06/23 12/06/23 12/06/23 Range/Units 06:51 06:51 10:35 WBC 14.71 H (4.50-10.00) X 10*3/uL RBC 2.34 L (4.40-5.60) X 10*6/uL Hgb 5.9 A* (13.0-17.0) g/dL Hct 19.6 A* (39.6-50.0) % MCH 25.2 L (27.0-32.0) pg MCHC 30.1 L (32.0-37.0) g/dL RDW 16.1 H (11.5-14.5) % Plt Count 475 H (140-440) X 10*3/uL MPV 9.4 L (9.5-12.2) FL Immature Gran # 0.12 H (0.00-0.04) X 10*3/uL Neutrophils # 12.66 H (1.80-7.70) X 10*3/uL Lymphocytes # 0.68 L (0.90-5.00) X 10*3/uL Monocytes # 1.17 H (0.20-1.00) X 10*3/uL Eosinophils # 0.03 L (0.04-0.35) X 10*3/uL Chloride (98-107) mmol/L Carbon Dioxide 17.4 L (21.6-31.8) mmol/L Anion Gap 13.60 H (4.00-12.00) mmol/L BUN (9-20) mg/dL Creatinine 3.0 H (0.6-1.5) mg/dL Est GFR (CKD-EPI) 23 L (>=60) BUN/Creatinine Ratio 6.83 L (12.00-20.00) Ratio Calcium 7.8 L (8.7-10.3) mg/dL Troponin I 0.617 H* (0.000-0.034) ng/mL Total Protein (6.3-8.2) g/dL Albumin (3.5-5.0) g/dL Crossmatch 12/06/23 12/06/23 12/07/23 Range/Units 12:11 21:57 05:39 WBC 16.7 H (4.50-10.00) X 10*3/uL RBC 2.91 L (4.40-5.60) X 10*6/uL Hgb 7.5 L (13.0-17.0) g/dL Hct 24.2 L (39.6-50.0) % MCH (27.0-32.0) pg MCHC 30.9 L (32.0-37.0) g/dL RDW (11.5-14.5) % Plt Count 473 H (140-440) X 10*3/uL MPV (9.5-12.2) FL Immature Gran # (0.00-0.04) X 10*3/uL Neutrophils # 14.0 H (1.80-7.70) X 10*3/uL Lymphocytes # 0.7 L (0.90-5.00) X 10*3/uL Monocytes # 1.6 H (0.20-1.00) X 10*3/uL Eosinophils # (0.04-0.35) X 10*3/uL Chloride 114 H (98-107) mmol/L Carbon Dioxide 15 L (21.6-31.8) mmol/L Anion Gap (4.00-12.00) mmol/L BUN 29 H (9-20) mg/dL Creatinine 3.57 H (0.6-1.5) mg/dL Est GFR (CKD-EPI) (>=60) BUN/Creatinine Ratio (12.00-20.00) Ratio Calcium 7.8 L (8.7-10.3) mg/dL Troponin I (0.000-0.034) ng/mL Total Protein 6.0 L (6.3-8.2) g/dL Albumin 2.4 L (3.5-5.0) g/dL Crossmatch See Detail 12/07/23 Range/Units 05:46 WBC 15.2 H (4.50-10.00) X 10*3/uL RBC 2.87 L (4.40-5.60) X 10*6/uL Hgb 7.3 L (13.0-17.0) g/dL Hct 24.6 L (39.6-50.0) % MCH (27.0-32.0) pg MCHC 29.7 L (32.0-37.0) g/dL RDW (11.5-14.5) % Plt Count 455 H (140-440) X 10*3/uL MPV (9.5-12.2) FL Immature Gran # (0.00-0.04) X 10*3/uL Neutrophils # 13.1 H (1.80-7.70) X 10*3/uL Lymphocytes # 0.9 L (0.90-5.00) X 10*3/uL Monocytes # (0.20-1.00) X 10*3/uL Eosinophils # (0.04-0.35) X 10*3/uL Chloride (98-107) mmol/L Carbon Dioxide (21.6-31.8) mmol/L Anion Gap (4.00-12.00) mmol/L BUN (9-20) mg/dL Creatinine (0.6-1.5) mg/dL Est GFR (CKD-EPI) (>=60) BUN/Creatinine Ratio (12.00-20.00) Ratio Calcium (8.7-10.3) mg/dL Troponin I (0.000-0.034) ng/mL Total Protein (6.3-8.2) g/dL Albumin (3.5-5.0) g/dL Crossmatch
--- NOTE | 2023-12-07 10:24 | P.PN ---
Subjective Progress Note Date: 12/07/23 Principal diagnosis: Left lower extremity nonhealing wounds, gangrene foot Patient is seen and examined today as a follow-up. He is sitting up in bed in the ICU. He is more alert and oriented today. He is having his breakfast. He reports no change in his left lower extremity. Patient had a max temp of 102.0 F yesterday. He is afebrile this morning. He received 2 units of blood yesterday repeat hemoglobin today 7.3, WBC 15.2 Objective - Vital Signs Vital signs: Vital Signs Temp 98.0 F 12/07/23 01:24 Pulse 71 12/07/23 01:24 Resp 16 12/07/23 01:24 BP 115/69 12/07/23 01:24 Pulse Ox 95 12/07/23 01:24 FiO2 Intake & Output 12/06/23 12/07/23 12/07/23 18:59 06:59 18:59 Intake Total 900 760 Output Total 1250 800 Balance -350 -40 Intake: IV 900 240 Sodium Chloride 0.9% 1, 900 240 000 ml @ 75 mls/hr IV . [id number] [facility] Rx#:[id number] Intake, IV Titration 150 Amount Cefepime 2 gm In Sodium 100 Chloride 0.9% 100 ml @ 25 mls/hr IVPB Q12H [facility] Rx# :[id number] DAPTOmycin 350 mg In 50 Sodium Chloride 0.9% 50 ml @ 100 mls/hr IVPB Q24H [facility] Rx#:[id number] Oral 60 Blood Product 0 310 Rc As-1 Unit 0 310 [id number] Rc As-1 Unit 0 [id number] Output: Urine 1250 800 Uretheral (Stearns) 650 Other: Voiding Method External Catheter Indwelling Catheter # Bowel Movements 0 - Exam General appearance: The patient is alert, oriented, appears in no acute distress. HET: Head is normocephalic and atraumatic. Pupils are equal and reactive. Neck: Supple. Abdomen: Soft, nondistended. Extremities: Left lower extremity incision on thigh well-healed. Doppler signal over bypass present. Left knee contracture. Medial aspect of calf incision with dehiscence. Nonhealing ulcers to distal lower leg, gangrene foot with tendon exposure dorsal aspect, plantar aspect of foot with area of viable tissue. Dressing intact. Sensorimotor intact. Neurological: No focal deficits. - Labs CBC & Chem 7: 12/07/23 05:46 12/07/23 05:39 Labs: Abnormal Lab Results - Last 24 Hours (Table) 12/06/23 12/06/23 12/06/23 Range/Units 06:51 06:51 10:35 WBC 14.71 H (4.50-10.00) X 10*3/uL RBC 2.34 L (4.40-5.60) X 10*6/uL Hgb 5.9 A* (13.0-17.0) g/dL Hct 19.6 A* (39.6-50.0) % MCH 25.2 L (27.0-32.0) pg MCHC 30.1 L (32.0-37.0) g/dL RDW 16.1 H (11.5-14.5) % Plt Count 475 H (140-440) X 10*3/uL MPV 9.4 L (9.5-12.2) FL Immature Gran # 0.12 H (0.00-0.04) X 10*3/uL Neutrophils # 12.66 H (1.80-7.70) X 10*3/uL Lymphocytes # 0.68 L (0.90-5.00) X 10*3/uL Monocytes # 1.17 H (0.20-1.00) X 10*3/uL Eosinophils # 0.03 L (0.04-0.35) X 10*3/uL Chloride (98-107) mmol/L Carbon Dioxide 17.4 L (21.6-31.8) mmol/L Anion Gap 13.60 H (4.00-12.00) mmol/L BUN (9-20) mg/dL Creatinine 3.0 H (0.6-1.5) mg/dL Est GFR (CKD-EPI) 23 L (>=60) BUN/Creatinine Ratio 6.83 L (12.00-20.00) Ratio Calcium 7.8 L (8.7-10.3) mg/dL Troponin I 0.617 H* (0.000-0.034) ng/mL Total Protein (6.3-8.2) g/dL Albumin (3.5-5.0) g/dL Crossmatch 12/06/23 12/06/23 12/07/23 Range/Units 12:11 21:57 05:39 WBC 16.7 H (4.50-10.00) X 10*3/uL RBC 2.91 L (4.40-5.60) X 10*6/uL Hgb 7.5 L (13.0-17.0) g/dL Hct 24.2 L (39.6-50.0) % MCH (27.0-32.0) pg MCHC 30.9 L (32.0-37.0) g/dL RDW (11.5-14.5) % Plt Count 473 H (140-440) X 10*3/uL MPV (9.5-12.2) FL Immature Gran # (0.00-0.04) X 10*3/uL Neutrophils # 14.0 H (1.80-7.70) X 10*3/uL Lymphocytes # 0.7 L (0.90-5.00) X 10*3/uL Monocytes # 1.6 H (0.20-1.00) X 10*3/uL Eosinophils # (0.04-0.35) X 10*3/uL Chloride 114 H (98-107) mmol/L Carbon Dioxide 15 L (21.6-31.8) mmol/L Anion Gap (4.00-12.00) mmol/L BUN 29 H (9-20) mg/dL Creatinine 3.57 H (0.6-1.5) mg/dL Est GFR (CKD-EPI) (>=60) BUN/Creatinine Ratio (12.00-20.00) Ratio Calcium 7.8 L (8.7-10.3) mg/dL Troponin I (0.000-0.034) ng/mL Total Protein 6.0 L (6.3-8.2) g/dL Albumin 2.4 L (3.5-5.0) g/dL Crossmatch See Detail 12/07/23 Range/Units 05:46 WBC 15.2 H (4.50-10.00) X 10*3/uL RBC 2.87 L (4.40-5.60) X 10*6/uL Hgb 7.3 L (13.0-17.0) g/dL Hct 24.6 L (39.6-50.0) % MCH (27.0-32.0) pg MCHC 29.7 L (32.0-37.0) g/dL RDW (11.5-14.5) % Plt Count 455 H (140-440) X 10*3/uL MPV (9.5-12.2) FL Immature Gran # (0.00-0.04) X 10*3/uL Neutrophils # 13.1 H (1.80-7.70) X 10*3/uL Lymphocytes # 0.9 L (0.90-5.00) X 10*3/uL Monocytes # (0.20-1.00) X 10*3/uL Eosinophils # (0.04-0.35) X 10*3/uL Chloride (98-107) mmol/L Carbon Dioxide (21.6-31.8) mmol/L Anion Gap (4.00-12.00) mmol/L BUN (9-20) mg/dL Creatinine (0.6-1.5) mg/dL Est GFR (CKD-EPI) (>=60) BUN/Creatinine Ratio (12.00-20.00) Ratio Calcium (8.7-10.3) mg/dL Troponin I (0.000-0.034) ng/mL Total Protein (6.3-8.2) g/dL Albumin (3.5-5.0) g/dL Crossmatch Assessment and Plan Assessment: 1. Gangrene left foot 2. History of peripheral arterial disease with critical limb ischemia of the left lower extremity status post left common femoral endarterectomy and femoral to below-knee popliteal bypass 3. Nonhealing left lower extremity wounds 4. Altered mental status changes 5. Leukocytosis 6. Fever 7. Recent wound culture with MRSA and Pseudomonas on outpatient IV antibiotics Plan: 1. Continue local wound care 2. Continue recommendations from infectious disease 3. Continue with recommendations from cardiology 4. Rest of medical management per primary medical team 5. Discussed with patient he will likely need a below the knee amputation if not possible [id number] amputation. Of course patient would prefer below the knee amputation. This will be further discussed with Dr. Payne and edelmira wadsworth recommendations forthcoming. Thank you for this consultation, we will continue to follow. The impression and plan of care has been dictated as directed. I performed a history and examination of this patient, discussed the same with the dictator. I agree with the dictator's note ,documented as a scribe. Any additional findings or plans will be noted.
[2023-12-07] MEDS: CEFEPIME 1 GM in SODIUM CHLORIDE 0.9% 50 ML IVPB SCH (11:28)
--- NOTE | 2023-12-07 11:44 | CA ---
Transthoracic Echo Report Name: Star Alas Age: 58 Gender: M : 1965 Exam Date: 12/06/2023 11:32 Exam Location: [place] [facility] Ht (in): 75 Wt (lb): 200 Ordering Physician: Brenda Carrera Attending/Referring Phys: [id number], Debi Business Case Analyst Faiza Miramontes, MARTELL Procedure CPT: Indications: cardiomyopathy Cardiac Hx: Technical Quality: Good Contrast 1: Total Dose (mL): Contrast 2: Total Dose (mL): MEASUREMENTS (Male / Female) Normal Values 2D ECHO LV Diastolic Diameter PLAX 6.7 cm 4.2 - 5.9 / 3.9 - 5.3 cm LV Systolic Diameter PLAX 5.3 cm IVS Diastolic Thickness 1.1 cm 0.6 - 1.0 / 0.6 - 0.9 cm LVPW Diastolic Thickness 1.0 cm 0.6 - 1.0 / 0.6 - 0.9 cm LV Relative Wall Thickness 0.3 RV Internal Dim ED PLAX 2.2 cm LV Diastolic Volume MOD BP 155.3 cm??? 67 - 155 / 56 - 104 cm??? LV Systolic Volume MOD BP 85.4 cm??? 22 - 58 / 19 - 49 cm??? LV Ejection Fraction MOD BP 45.0 % >= 55 % LV Cardiac Index MOD BP 2227.5 cm???/min???m??? LV Diastolic Volume MOD 4C 139.1 cm??? LV Systolic Volume MOD 4C 85.2 cm??? LV Ejection Fraction MOD 4C 38.7 % LV Cardiac Index MOD 4C 1717.6 cm???/min???m??? LV Diastolic Length 4C 9.3 cm LV Systolic Length 4C 9.2 cm LV Diastolic Volume MOD 2C 173.2 cm??? LV Systolic Volume MOD 2C 80.2 cm??? LV Ejection Fraction MOD 2C 53.7 % LV Cardiac Index MOD 2C 2965.7 cm???/min???m??? LV Diastolic Length 2C 9.2 cm LV Systolic Length 2C 8.0 cm M-MODE Aortic Root Diameter MM 3.9 cm LA Systolic Diameter MM 4.9 cm LA Ao Ratio MM 1.2 AV Cusp Separation MM 2.5 cm FINDINGS Left Ventricle Left ventricular ejection fraction is estimated at 40-45%. Mildly increased septal wall thickness. Moderately increased left ventricular diastolic diameter. Severely increased left ventricular systolic volume. Right Ventricle Right Atrium Left Atrium Mitral Valve Aortic Valve Tricuspid Valve Pulmonic Valve Pericardium No pericardial or pleural effusion. Aorta Mildly dilated aortic annulus. CONCLUSIONS Enlarged left ventricle with the global decrease in contractility. Ejection fraction is about 40-45 %. Previewed by: Dr. Ascencion Johnson MD (Electronically Signed) Final Date: 07 Dec 2023 11:43
--- NOTE | 2023-12-07 15:17 | P.PN ---
Subjective Progress Note Date: 12/07/23 Principal diagnosis: Reason for follow-up is sepsis and left lower extremity cellulitis Patient is a 58-year-old male with a past medical history significant for COPD also with a history of PAD with recent multiple admission to the hospital with necrotic left foot requiring revascularization recently did have a wound infection culture positive for MRSA and Pseudomonas patient did get a PICC line and [facility] hospital mental status changes elevated vancomycin trough and creatinine. On today's evaluation that is 12/07/2023, the patient did have another fever last night of 102 F however the patient is afebrile this morning, the patient is on 3 L current oxygen and breathing comfortably, the Pt denies having any chest pain or cough, the patient denies having any abdominal pain no vomiting or any diarrhea has been reported by the nursing staff patient denies any worsening pain to the left lower extremity. Patient white count slightly down to 15.2, creatinine 3.57 blood cultures currently pending Objective - Vital Signs Vital signs: Vital Signs Temp 98.0 F 12/07/23 08:00 Pulse 79 12/07/23 08:00 Resp 16 12/07/23 08:00 BP 116/75 12/07/23 08:00 Pulse Ox 96 12/07/23 08:00 FiO2 Intake & Output 12/06/23 12/07/23 12/07/23 18:59 06:59 18:59 Intake Total 900 760 Output Total 1250 800 Balance -350 -40 Intake: IV 900 240 Sodium Chloride 0.9% 1, 900 240 000 ml @ 75 mls/hr IV . [id number] [facility] Rx#:[id number] Intake, IV Titration 150 Amount Cefepime 2 gm In Sodium 100 Chloride 0.9% 100 ml @ 25 mls/hr IVPB Q12H [facility] Rx# :[id number] DAPTOmycin 350 mg In 50 Sodium Chloride 0.9% 50 ml @ 100 mls/hr IVPB Q24H [facility] Rx#:[id number] Oral 60 Blood Product 0 310 Rc As-1 Unit 0 310 [id number] Rc As-1 Unit 0 [id number] Output: Urine 1250 800 Uretheral (Stearns) 650 Other: Voiding Method External Catheter Indwelling Catheter Indwelling Catheter # Bowel Movements 0 - Exam GENERAL DESCRIPTION: Middle-age male lying in bed in no distress RESPIRATORY SYSTEM: Unlabored breathing , decreased breath sounds at bases HEART: S1 S2 regular rate and rhythm , ABDOMEN: Soft , no tenderness EXTREMITIES: Left foot is necrotic overall swelling redness to the left leg slightly decreased - Labs CBC & Chem 7: 12/07/23 05:46 12/07/23 05:39 Labs: Abnormal Lab Results - Last 24 Hours (Table) 12/06/23 12/06/23 12/07/23 Range/Units 12:11 21:57 05:39 WBC 16.7 H (3.8-10.6) k/uL RBC 2.91 L (4.30-5.90) m/uL Hgb 7.5 L (13.0-17.5) gm/dL Hct 24.2 L (39.0-53.0) % MCHC 30.9 L (31.0-37.0) g/dL Plt Count 473 H (150-450) k/uL Neutrophils # 14.0 H (1.3-7.7) k/uL Lymphocytes # 0.7 L (1.0-4.8) k/uL Monocytes # 1.6 H (0-1.0) k/uL Chloride 114 H (98-107) mmol/L Carbon Dioxide 15 L (22-30) mmol/L BUN 29 H (9-20) mg/dL Creatinine 3.57 H (0.66-1.25) mg/dL Calcium 7.8 L (8.4-10.2) mg/dL Total Protein 6.0 L (6.3-8.2) g/dL Albumin 2.4 L (3.5-5.0) g/dL Crossmatch See Detail 12/07/23 Range/Units 05:46 WBC 15.2 H (3.8-10.6) k/uL RBC 2.87 L (4.30-5.90) m/uL Hgb 7.3 L (13.0-17.5) gm/dL Hct 24.6 L (39.0-53.0) % MCHC 29.7 L (31.0-37.0) g/dL Plt Count 455 H (150-450) k/uL Neutrophils # 13.1 H (1.3-7.7) k/uL Lymphocytes # 0.9 L (1.0-4.8) k/uL Monocytes # (0-1.0) k/uL Chloride (98-107) mmol/L Carbon Dioxide (22-30) mmol/L BUN (9-20) mg/dL Creatinine (0.66-1.25) mg/dL Calcium (8.4-10.2) mg/dL Total Protein (6.3-8.2) g/dL Albumin (3.5-5.0) g/dL Crossmatch Microbiology - Last 24 Hours (Table) 12/06/23 01:04 Blood Culture - Preliminary Blood Assessment and Plan (1) Leukocytosis Current Visit: Yes Status: Acute Code(s): D72.829 - ELEVATED WHITE BLOOD CELL COUNT, UNSPECIFIED SNOMED Code(s): 198238990 (2) Cellulitis of left leg Current Visit: No Status: Acute Code(s): L03.116 - CELLULITIS OF LEFT LOWER LIMB SNOMED Code(s): 54002214094089281 (3) Infected wound Current Visit: No Status: Acute Code(s): T14.8XXA - OTHER INJURY OF UNSPECIFIED BODY REGION, INITIAL ENCOUNTER; L08.9 - LOCAL INFECTION OF THE SKIN AND SUBCUTANEOUS TISSUE, UNSP SNOMED Code(s): 78145144 Plan: 1patient with a chronic nonhealing wound to the left lower extremity in this pa tient who did have significant PAD requiring revascularization surgery now with more necrotic left foot wound left lower extremity and cellulitis with a previous culture positive for MRSA and Pseudomonas 2-patient is currently covered with the daptomycin and cefepime apparently patient is considered for possible amputation to the left foot extremity as per discussion with the nursing staff cultures will be followed Dictation was produced using [employer] dictation software. please excuse any grammatical, word or spelling errors. Time with Patient: Less than 30
[2023-12-07] MEDS: DEXTROSE 5% IN WATER 100 ML with AMIODARONE 300 MG IV ONE (20:02)
[2023-12-07] MEDS: HEPARIN SOD,PORK IN 0.45% NACL 25,000 UNIT in 0.45% NACL 1 250ML.BAG IV SCH (20:02)
[2023-12-07] MEDS: HEPARIN SODIUM 1,000 UN/ML (10ML VL) IV ONE (20:03)
[2023-12-07] MEDS: GABAPENTIN 100 MG CAP PO SCH (20:43)
[2023-12-07] MEDS: AMIODARONE 360 MG in DEXTROSE 5% IN WATER 200 ML IV ONE (22:38)
--- NOTE | 2023-12-07 23:52 | PN ---
PROGRESS NOTE DATE OF SERVICE: 12/07/2023 SUBJECTIVE: This 58-year-old gentleman was admitted with change in mental status and possibly left leg postoperative wound and sepsis, is being closely monitored at this time. The patient is much more alert today. The patient also received hemoglobin yesterday. The patient was transfused packed cells yesterday and hemoglobin is at 7.3 today. Creatinine 3.57. PAST MEDICAL HISTORY: Reviewed. REVIEW OF SYSTEMS: A 14-point review of systems is negative except as mentioned earlier. PAST MEDICAL HISTORY: Reviewed. CURRENT MEDICATIONS: Reviewed include cefepime. PHYSICAL EXAMINATION: VITAL SIGNS: Pulse is 79, blood pressure 116/75, respirations 16. HEENT: Conjunctivae normal. CARDIOVASCULAR: S1, S2. RESPIRATIONS: Diminished at the bases, scattered rhonchi. ABDOMEN: Soft. LEGS: Left leg dry gangrenous significant infection present. LABORATORY DATA: WBC 15.0, hemoglobin 7, rest of the labs are noted. ASSESSMENT: 1. Left leg postoperative wound infection, dry gangrene, possible sepsis present on admission. 2. Change in mental status, acute metabolic encephalopathy. 3. Acute renal failure, possibly vancomycin toxicity. 4. Severe anemia, possibly blood loss, multifactorial, status post transfusion. 5. Elevated WBC. 6. Troponin 0.617, possibly secondary to renal failure per Cardiology. 7. Chronic obstructive pulmonary disease. 8. DVT of the right leg. 9. History of MRSA. 10.Multiple complex medical issues. 11.CHF acute exacerbation, acute on chronic systolic dysfunction, ejection fraction 40% to 45%. RECOMMENDATIONS: Recommended to continue current medications, continue symptomatic treatment. Otherwise closely monitor in ICU. I would recommend 1 more unit of transfusion for symptomatic anemia. Otherwise, the chest x-ray was personally reviewed. Closely follow with multiple current antibiotics, monitor creatinine closely. Chest x-ray does show some fluid overload and a 2D echo limited was reviewed personally by me, showed ejection fraction 40% to 45%. MMODL / IJN: [id number] /
[2023-12-08] MEDS ORDERED: DAPTOmycin 350 MG in SODIUM CHLORIDE 0.9% 50 ML IVPB SCH
[2023-12-08] MEDS: DAPTOmycin 350 MG in SODIUM CHLORIDE 0.9% 50 ML IVPB SCH (01:26)
[2023-12-08] MEDS: HEPARIN SODIUM 1,000 UN/ML (10ML VL) IV PRN (02:16)
[2023-12-08] MEDS: AMIODARONE 450 MG in DEXTROSE 5% IN WATER 250 ML IV SCH (04:58)
--- NOTE | 2023-12-08 07:04 | XR ---
EXAMINATION TYPE: XR chest 1V portable DATE OF EXAM: 12/08/2023 COMPARISON: 12/07/2023 HISTORY: CHF TECHNIQUE: Single frontal view of the chest is obtained. FINDINGS: There is mild cardiomegaly and mild pulmonary vascular congestion. There is no pneumothorax or large pleural effusion. The osseous structures are intact. There is no ai rspace opacification. IMPRESSION: Findings most consistent with mild CHF which has mildly to moderately decreased in the in terval.
[2023-12-08 08:28] LABS: Basophils % (A) 0 %; Eosinophils # (A) 0.6 k/uL (0-0.7); Eosinophils % (A) 4 %; HCT 23.7 % (39.0-53.0); HGB 7.4 gm/dL (13.0-17.5); Hypochromasia Marked; Lymphocytes # (A) 0.9 k/uL (1.0-4.8); Lymphocytes % (A) 6 %; MCV 83.7 fL (80.0-100.0); Mean Platelet Volume 7.7; Monocytes # (A) 1.2 k/uL (0-1.0); Monocytes % (A) 8 %; Neutrophils % (A) 80 %; Platelet Count 413 k/uL (150-450); RBC 2.83 m/uL (4.30-5.90); RDW 14.9 % (11.5-15.5); WBC 14.9 k/uL (3.8-10.6)
[2023-12-08 08:41] LABS: African American GFR (CKD) 19 (>60 ml/min/1.73 sqM); Anion Gap 7 mmol/L; Blood Urea Nitrogen 33 mg/dL (9-20); Calcium 7.8 mg/dL (8.4-10.2); Carbon Dioxide 18 mmol/L (22-30); Chloride 109 mmol/L (98-107); Glucose 90 mg/dL (74-99); Non-African American GFR(CKD) 16 (>60 ml/min/1.73 sqM); Potassium 4.2 mmol/L (3.5-5.1); Sodium 134 mmol/L (137-145)
[2023-12-08 08:43] LABS: INR 1.2 (<1.2); Prothrombin Time 13.1 sec (10.0-12.5)
--- NOTE | 2023-12-08 09:39 | P.PN ---
Subjective Progress Note Date: 12/08/23 This is Anibal Dean NP, I'm dictating on behalf of Dr. Funez's H&P and A&P. Patient was interviewed and examined. Patient is a pleasant 58-year-old male who presented to the hospital with acute nephrotoxicity secondary to vancomycin as well as altered mental status. Patient continues to appreciate pain today in the left lower extremity. Patient was started on amiodarone loading yesterday evening for tachycardia, this does appear to be working as his heart rate is now in the 70s. GENERAL: Well-appearing, well-nourished and in no acute distress. NECK: Supple without JVD or thyromegaly. LUNGS: Breath sounds clear to auscultation bilaterally. Respiration equal and unlabored. No wheezes, rales or rhonchi. HEART: Regular rate and rhythm without murmurs, rubs or gallops. S1 and S2 heard. EXTREMITIES: Normal range of motion, no edema. Left lower extremity is wrapped in Kerlix, and appears to be gangrenous and painful. VITALS: Pulse 70, respirations 16, blood pressure 107/70, O2 saturation 96% on 3 L TELEMETRY: Sinus mechanism LABS: White count 14.9, hemoglobin 7.4, platelets 413, sodium 134, potassium 4.2, BUN 33, creatinine 3.79 IMPRESSION: 1. Elevated troponin secondary to nephrotoxicity 2. Vancomycin toxicity 3. Acute encephalopathy 4. Peripheral vascular disease 5. Left lower extremity cellulitis 6. History of cardiomyopathy 7. Acute on chronic kidney injury, worsening function PLAN: Continue amiodarone loading dose until completed, then start amiodarone 200 mg daily. Echocardiogram demonstrates an EF similar to previous reads. Aggressive pulmonary hygiene. Further recommendations based on patient's clinical course. Objective - Vital Signs Vital signs: Vital Signs Temp 99 F 12/07/23 22:50 Pulse 70 12/08/23 03:31 Resp 16 12/08/23 03:31 BP 107/70 12/08/23 03:31 Pulse Ox 96 12/08/23 03:31 FiO2 Intake & Output 12/07/23 12/08/23 12/08/23 18:59 06:59 18:59 Intake Total 750 602.5 Output Total 800 475 Balance -50 127.5 Intake: IV 750 Sodium Chloride 0.9% 1, 750 000 ml @ 75 mls/hr IV . [id number] [facility] Rx#:[id number] Intake, IV Titration 62.5 Amount Heparin Sod,Pork in 0.45% 62.5 NaCl 25,000 unit In 0.45 % NaCl 1 250ml.bag @ 11. 023 UNITS/KG/HR 10 mls/hr IV .Q24H [facility] Rx#: [id number] Oral 540 Output: Urine 800 475 Other: Voiding Method Indwelling Catheter Indwelling Catheter # Bowel Movements 1 - Labs CBC & Chem 7: 12/08/23 07:44 12/08/23 07:44 Labs: Abnormal Lab Results - Last 24 Hours (Table) 12/06/23 12/08/23 12/08/23 Range/Units 12:11 00:31 07:44 WBC 14.9 H (3.8-10.6) k/uL RBC 2.83 L (4.30-5.90) m/uL Hgb 7.4 L (13.0-17.5) gm/dL Hct 23.7 L (39.0-53.0) % Neutrophils # 12.0 H (1.3-7.7) k/uL Lymphocytes # 0.9 L (1.0-4.8) k/uL Monocytes # 1.2 H (0-1.0) k/uL PT (10.0-12.5) sec INR (<1.2) APTT 35.4 H (22.0-30.0) sec Sodium (137-145) mmol/L Chloride (98-107) mmol/L Carbon Dioxide (22-30) mmol/L BUN (9-20) mg/dL Creatinine (0.66-1.25) mg/dL Calcium (8.4-10.2) mg/dL Crossmatch See Detail 12/08/23 12/08/23 12/08/23 Range/Units 07:44 07:44 07:44 WBC (3.8-10.6) k/uL RBC (4.30-5.90) m/uL Hgb (13.0-17.5) gm/dL Hct (39.0-53.0) % Neutrophils # (1.3-7.7) k/uL Lymphocytes # (1.0-4.8) k/uL Monocytes # (0-1.0) k/uL PT 13.1 H (10.0-12.5) sec INR 1.2 H (<1.2) APTT 34.9 H (22.0-30.0) sec Sodium 134 L (137-145) mmol/L Chloride 109 H (98-107) mmol/L Carbon Dioxide 18 L (22-30) mmol/L BUN 33 H (9-20) mg/dL Creatinine 3.79 H (0.66-1.25) mg/dL Calcium 7.8 L (8.4-10.2) mg/dL Crossmatch Microbiology - Last 24 Hours (Table) 12/06/23 01:04 Blood Culture - Preliminary Blood
[2023-12-08] MEDS: oxyCODONE-APAP 7.5-325MG 1 EACH TAB PO PRN (13:36)
--- NOTE | 2023-12-08 14:22 | P.PN ---
Subjective Progress Note Date: 12/08/23 Principal diagnosis: Reason for follow-up is sepsis and left lower extremity cellulitis Patient is a 58-year-old male with a past medical history significant for COPD also with a history of PAD with recent multiple admission to the hospital with necrotic left foot requiring revascularization recently did have a wound infection culture positive for MRSA and Pseudomonas patient did get a PICC line and was receiving IV vancomycin and cefepime at the skilled nursing presented to the hospital mental status changes elevated vancomycin trough and creatinine. On today's evaluation that is 12/08/2023, Patient is afebrile patient is currently on 3 L current oxygen and denies having any shortness of breath, the patient denies any chest pain or cough, the patient denies any nausea vomiting did not have any abdominal pain and no diarrhea, denies any worsening pain to the left lower extremity. Patient white count is down to 14.8, creatinine 3.79 blood cultures so far nega tive Objective - Vital Signs Vital signs: Vital Signs Temp 98.3 F 12/08/23 11:54 Pulse 71 12/08/23 11:54 Resp 18 12/08/23 11:25 BP 113/63 12/08/23 11:54 Pulse Ox 94 L 12/08/23 11:54 FiO2 Intake & Output 12/07/23 12/08/23 12/08/23 18:59 06:59 18:59 Intake Total 750 602.5 571.4 Output Total 800 475 Balance -50 127.5 571.4 Intake: IV 750 30 Invasive Line 2 10 Invasive Line 4 10 Invasive Line 5 10 Sodium Chloride 0.9% 1, 750 000 ml @ 75 mls/hr IV . [id number] [facility] Rx#:[id number] Intake, IV Titration 62.5 97.4 Amount Heparin Sod,Pork in 0.45% 62.5 97.4 NaCl 25,000 unit In 0.45 % NaCl 1 250ml.bag @ 11. 023 UNITS/KG/HR 10 mls/hr IV .Q24H [facility] Rx#: [id number] Oral 540 444 Blood Product 0 Rc As-1 Unit 0 [id number] Output: Urine 800 475 Other: Voiding Method Indwelling Catheter Indwelling Catheter Indwelling Catheter # Bowel Movements 1 - Exam GENERAL DESCRIPTION: Middle-age male lying in bed in no distress RESPIRATORY SYSTEM: Unlabored breathing , decreased breath sounds at bases HEART: S1 S2 regular rate and rhythm , ABDOMEN: Soft , no tenderness EXTREMITIES: Left foot is necrotic, left leg is currently dressed minimal drainage on the dressing - Labs CBC & Chem 7: 12/08/23 07:44 12/08/23 07:44 Labs: Abnormal Lab Results - Last 24 Hours (Table) 12/06/23 12/08/23 12/08/23 Range/Units 12:11 00:31 07:44 WBC 14.9 H (3.8-10.6) k/uL RBC 2.83 L (4.30-5.90) m/uL Hgb 7.4 L (13.0-17.5) gm/dL Hct 23.7 L (39.0-53.0) % Neutrophils # 12.0 H (1.3-7.7) k/uL Lymphocytes # 0.9 L (1.0-4.8) k/uL Monocytes # 1.2 H (0-1.0) k/uL PT (10.0-12.5) sec INR (<1.2) APTT 35.4 H (22.0-30.0) sec Sodium (137-145) mmol/L Chloride (98-107) mmol/L Carbon Dioxide (22-30) mmol/L BUN (9-20) mg/dL Creatinine (0.66-1.25) mg/dL Calcium (8.4-10.2) mg/dL Crossmatch See Detail 12/08/23 12/08/23 12/08/23 Range/Units 07:44 07:44 07:44 WBC (3.8-10.6) k/uL RBC (4.30-5.90) m/uL Hgb (13.0-17.5) gm/dL Hct (39.0-53.0) % Neutrophils # (1.3-7.7) k/uL Lymphocytes # (1.0-4.8) k/uL Monocytes # (0-1.0) k/uL PT 13.1 H (10.0-12.5) sec INR 1.2 H (<1.2) APTT 34.9 H (22.0-30.0) sec Sodium 134 L (137-145) mmol/L Chloride 109 H (98-107) mmol/L Carbon Dioxide 18 L (22-30) mmol/L BUN 33 H (9-20) mg/dL Creatinine 3.79 H (0.66-1.25) mg/dL Calcium 7.8 L (8.4-10.2) mg/dL Crossmatch Microbiology - Last 24 Hours (Table) 12/06/23 01:04 Blood Culture - Preliminary Blood 12/06/23 16:52 Urine Culture - Final Urine,Catheterized Assessment and Plan (1) Leukocytosis Current Visit: Yes Status: Acute Code(s): D72.829 - ELEVATED WHITE BLOOD CELL COUNT, UNSPECIFIED SNOMED Code(s): 500227373 (2) Cellulitis of left leg Current Visit: No Status: Acute Code(s): L03.116 - CELLULITIS OF LEFT LOWER LIMB SNOMED Code(s): 22698134611512132 (3) Infected wound Current Visit: No Status: Acute Code(s): T14.8XXA - OTHER INJURY OF UNSPECIFIED BODY REGION, INITIAL ENCOUNTER; L08.9 - LOCAL INFECTION OF THE SKIN AND SUBCUTANEOUS TISSUE, UNSP SNOMED Code(s): 41702593 Plan: 1patient with a chronic nonhealing wound to the left lower extremity in this patient who did have significant PAD requiring revascularization surgery now with more necrotic left foot wound left lower extremity and cellulitis with a previous culture positive for MRSA and Pseudomonas 2-patient is afebrile white count is down, patient to continue with the daptomycin and cefepime and monitor clinical course closely Dictation was produced using [employer] dictation software. please excuse any grammatical, word or spelling errors. Time with Patient: Less than 30
[2023-12-08] MEDS: AMIODARONE 200 MG TAB PO SCH (21:56)
--- NOTE | 2023-12-08 22:11 | PN ---
PROGRESS NOTE DATE OF SERVICE: 12/08/2023 SUBJECTIVE: This is a 58-year-old gentleman, who was admitted with left leg postoperative wound infection, also had change in mental status. The patient also has renal failure and multiple complex medical issues. The patient is being closely monitored. Chest x-ray done today, which I reviewed personally showed some increased bronchovascular markings. PAST MEDICAL HISTORY: Reviewed. REVIEW OF SYSTEMS: A 14-point review is negative except as mentioned earlier. CURRENT MEDICATIONS: Reviewed include amiodarone. Dose and rest of medications reviewed. PHYSICAL EXAMINATION: VITAL SIGNS: Pulse is 68, blood pressure 105/53, respirations 16. CHEST: A few scattered rhonchi and crackles. ABDOMEN: Soft. NERVOUS SYSTEM: Nonfocal. LABORATORY DATA: WBC 14.9 and cultures are negative so far. ASSESSMENT: 1. Left leg postoperative wound infection, dry gangrene with possible sepsis present on admission. 2. Change in mental status, acute metabolic encephalopathy. 3. Acute renal failure, possibly vancomycin toxicity. 4. Severe anemia, possibly acute blood loss anemia, multifactorial, status post transfusion. 5. Elevated WBC. 6. Rule out mild congestive heart failure with congestive heart failure acute exacerbation, acute on chronic systolic dysfunction. 7. Troponin 0.617, possibly secondary to renal failure per Cardiology. 8. Chronic obstructive pulmonary disease. 9. Deep venous thrombosis of the right leg history. 10.History of methicillin-resistant Staphylococcus aureus. 11.Multiple complex medical issues. RECOMMENDATIONS AND DISCUSSION: Recommend to continue current management and continue symptomatic treatment. Otherwise, we will continue with current medications. Amiodarone per Cardiology. The patient had received 1 dose of Lasix. We will continue to monitor. Monitor creatinine closely. Continue with antibiotics. Overall prognosis extremely guarded and we will also closely follow with Surgery as well. Further recommendations to follow. See orders for further details. We will repeat the chest x-ray also. MMODL / IJN: [id number] /
[2023-12-09 05:58] LABS: Basophils % (A) 0 %; Eosinophils # (A) 0.7 k/uL (0-0.7); Eosinophils % (A) 7 %; HCT 27.2 % (39.0-53.0); HGB 8.4 gm/dL (13.0-17.5); Hypochromasia Marked; Lymphocytes # (A) 1.1 k/uL (1.0-4.8); Lymphocytes % (A) 10 %; MCH 26.3 pg (25.0-35.0); MCHC 30.7 g/dL (31.0-37.0); MCV 85.8 fL (80.0-100.0); Mean Platelet Volume 7.9; Monocytes # (A) 0.6 k/uL (0-1.0); Monocytes % (A) 6 %; Neutrophils # (A) 7.9 k/uL (1.3-7.7); Neutrophils % (A) 75 %; Platelet Count 450 k/uL (150-450); RBC 3.17 m/uL (4.30-5.90); RDW 15.7 % (11.5-15.5); WBC 10.5 k/uL (3.8-10.6)
[2023-12-09 06:29] LABS: African American GFR (CKD) 19 (>60 ml/min/1.73 sqM); Anion Gap 6 mmol/L; Blood Urea Nitrogen 37 mg/dL (9-20); Calcium 7.9 mg/dL (8.4-10.2); Carbon Dioxide 18 mmol/L (22-30); Chloride 109 mmol/L (98-107); Glucose 103 mg/dL (74-99); Non-African American GFR(CKD) 16 (>60 ml/min/1.73 sqM); Sodium 133 mmol/L (137-145)
[2023-12-09 06:31] LABS: Potassium 4.5 mmol/L (3.5-5.1)
--- NOTE | 2023-12-09 07:35 | XR ---
EXAMINATION TYPE: XR chest 1V portable DATE OF EXAM: 12/09/2023 COMPARISON: 12/27/2023 HISTORY: Follow-up CHF TECHNIQUE: Single frontal view of the chest is obtained. FINDINGS: There is no change in the mild pulmonary vascular congestion or the partially consolidated opacity in the right lung base. The heart size is normal for the technique. There is no pleural effusion or pneumothorax. The osseous structures are intact IMPRESSION: No interval change in the acute cardiopulmonary process.
--- NOTE | 2023-12-09 11:55 | P.PN ---
Subjective Progress Note Date: 12/09/23 This is Anibal Dean NP, I'm dictating on behalf of Dr. Funez's H&P and A&P. Patient was interviewed and examined. Patient is a pleasant 58-year-old male who presented to the hospital with acute encephalopathy, acute kidney injury, left lower extremity gangrene, nephrotoxicity secondary to vancomycin. Patient was significantly tachycardic, and had been started on amiodarone drip. This was completed yesterday, and the patient was started on amiodarone 200 mg twice daily. This does appear to have worked, as the patient's heart rate is well-controlled today. Patient reports overall that he is doing okay and has no complaints from a cardiac standpoint. GENERAL: Well-appearing, well-nourished and in no acute distress. NECK: Supple without JVD or thyromegaly. LUNGS: Breath sounds clear to auscultation bilaterally. Respiration equal and unlabored. No wheezes, rales or rhonchi. HEART: Regular rate and rhythm without murmurs, rubs or gallops. S1 and S2 heard. EXTREMITIES: Normal range of motion, no edema. No clubbing or cyanosis. Peripheral pulses intact and strong. VITALS: Temp 98.0, pulse 71, respirations 18, blood pressure 101/49, O2 saturation 95% on room air TELEMETRY: Sinus mechanism LABS: White count 10.5, hemoglobin 8.4, platelets 450, sodium 133, potassium 4.5, BUN 37, creatinine 3.8, calcium 7.9 IMPRESSION: 1. Elevated troponin secondary to nephrotoxicity 2. Vancomycin toxicity 3. Acute encephalopathy 4. Peripheral vascular disease 5. Left lower extremity cellulitis 6. History of cardiomyopathy 7. Acute on chronic kidney injury, worsening function PLAN: Continue amiodarone 200 mg twice daily. Echocardiogram demonstrates ejection fraction similar to previous reads. Aggressive pulmonary hygiene. From a cardiology standpoint the patient is cleared for surgery. Further recommendations based on patient's clinical course. Objective - Vital Signs Vital signs: Vital Signs Temp 98.0 F 12/09/23 07:52 Pulse 71 12/09/23 07:52 Resp 18 12/09/23 07:52 BP 101/49 12/09/23 07:52 Pulse Ox 95 12/09/23 07:52 FiO2 Intake & Output 12/08/23 12/09/23 12/09/23 18:59 06:59 18:59 Intake Total 1859.5 540 805.314 Output Total 300 600 Balance 1559.5 -60 805.314 Intake: IV 30 20 Invasive Line 2 10 10 Invasive Line 4 10 Invasive Line 5 10 10 Intake, IV Titration 187.5 245.314 Amount Heparin Sod,Pork in 0.45% 187.5 245.314 NaCl 25,000 unit In 0.45 % NaCl 1 250ml.bag @ 11. 023 UNITS/KG/HR 10 mls/hr IV .Q24H [facility] Rx#: [id number] Oral 1332 540 540 Blood Product 310 Rc As-1 Unit 310 [id number] Output: Urine 300 600 Other: Voiding Method Indwelling Catheter Indwelling Catheter Indwelling Catheter - Labs CBC & Chem 7: 12/09/23 05:43 12/09/23 05:43 Labs: Abnormal Lab Results - Last 24 Hours (Table) 12/06/23 12/08/23 12/08/23 Range/Units 12:11 16:16 23:18 RBC (4.30-5.90) m/uL Hgb (13.0-17.5) gm/dL Hct (39.0-53.0) % MCHC (31.0-37.0) g/dL RDW (11.5-15.5) % Neutrophils # (1.3-7.7) k/uL APTT 40.2 H 45.0 H (22.0-30.0) sec Sodium (137-145) mmol/L Chloride (98-107) mmol/L Carbon Dioxide (22-30) mmol/L BUN (9-20) mg/dL Creatinine (0.66-1.25) mg/dL Glucose (74-99) mg/dL Calcium (8.4-10.2) mg/dL Crossmatch See Detail 12/09/23 12/09/23 12/09/23 Range/Units 05:43 05:43 05:43 RBC 3.17 L (4.30-5.90) m/uL Hgb 8.4 L (13.0-17.5) gm/dL Hct 27.2 L (39.0-53.0) % MCHC 30.7 L (31.0-37.0) g/dL RDW 15.7 H (11.5-15.5) % Neutrophils # 7.9 H (1.3-7.7) k/uL APTT 46.5 H (22.0-30.0) sec Sodium 133 L (137-145) mmol/L Chloride 109 H (98-107) mmol/L Carbon Dioxide 18 L (22-30) mmol/L BUN 37 H (9-20) mg/dL Creatinine 3.80 H (0.66-1.25) mg/dL Glucose 103 H (74-99) mg/dL Calcium 7.9 L (8.4-10.2) mg/dL Crossmatch Microbiology - Last 24 Hours (Table) 12/06/23 01:04 Blood Culture - Preliminary Blood 12/06/23 16:52 Urine Culture - Final Urine,Catheterized
--- NOTE | 2023-12-09 13:54 | P.PN ---
Subjective Progress Note Date: 12/09/23 Patient seen and examined. States that he is ready for amputation and his wound has been draining significantly over the last couple days. He denies any fevers, chills, chest pain or shortness of breath. Objective - Vital Signs Vital signs: Vital Signs Temp 98.0 F 12/09/23 07:52 Pulse 63 12/09/23 12:53 Resp 16 12/09/23 12:53 BP 151/73 12/09/23 12:53 Pulse Ox 96 12/09/23 12:53 FiO2 Intake & Output 12/08/23 12/09/23 12/09/23 18:59 06:59 18:59 Intake Total 1859.5 540 805.314 Output Total 300 600 Balance 1559.5 -60 805.314 Intake: IV 30 20 Invasive Line 2 10 10 Invasive Line 4 10 Invasive Line 5 10 10 Intake, IV Titration 187.5 245.314 Amount Heparin Sod,Pork in 0.45% 187.5 245.314 NaCl 25,000 unit In 0.45 % NaCl 1 250ml.bag @ 11. 023 UNITS/KG/HR 10 mls/hr IV .Q24H [facility] Rx#: [id number] Oral 1332 540 540 Blood Product 310 Rc As-1 Unit 310 [id number] Output: Urine 300 600 Other: Voiding Method Indwelling Catheter Indwelling Catheter Indwelling Catheter - Exam Left lower extremity dressing in place which is saturated. Dry gangrene noted in the foot distally with proximal capillary refill noted. Palpable pulse in the bypass. - Constitutional General appearance: Present: mild distress - EENT Eyes: Present: EOMI, PERRLA - Respiratory Respiratory: bilateral: CTA - Cardiovascular Rhythm: regular - Labs CBC & Chem 7: 12/09/23 05:43 12/09/23 05:43 Labs: Abnormal Lab Results - Last 24 Hours (Table) 12/06/23 12/08/23 12/08/23 Range/Units 12:11 16:16 23:18 RBC (4.30-5.90) m/uL Hgb (13.0-17.5) gm/dL Hct (39.0-53.0) % MCHC (31.0-37.0) g/dL RDW (11.5-15.5) % Neutrophils # (1.3-7.7) k/uL APTT 40.2 H 45.0 H (22.0-30.0) sec Sodium (137-145) mmol/L Chloride (98-107) mmol/L Carbon Dioxide (22-30) mmol/L BUN (9-20) mg/dL Creatinine (0.66-1.25) mg/dL Glucose (74-99) mg/dL Calcium (8.4-10.2) mg/dL Crossmatch See Detail 12/09/23 12/09/23 12/09/23 Range/Units 05:43 05:43 05:43 RBC 3.17 L (4.30-5.90) m/uL Hgb 8.4 L (13.0-17.5) gm/dL Hct 27.2 L (39.0-53.0) % MCHC 30.7 L (31.0-37.0) g/dL RDW 15.7 H (11.5-15.5) % Neutrophils # 7.9 H (1.3-7.7) k/uL APTT 46.5 H (22.0-30.0) sec Sodium 133 L (137-145) mmol/L Chloride 109 H (98-107) mmol/L Carbon Dioxide 18 L (22-30) mmol/L BUN 37 H (9-20) mg/dL Creatinine 3.80 H (0.66-1.25) mg/dL Glucose 103 H (74-99) mg/dL Calcium 7.9 L (8.4-10.2) mg/dL Crossmatch Microbiology - Last 24 Hours (Table) 12/06/23 01:04 Blood Culture - Preliminary Blood 12/06/23 16:52 Urine Culture - Final Urine,Catheterized Assessment and Plan Assessment: Gangrene left foot Chronic left lower extremity critical limb ischemia History of left femoral to tibial bypass Plan: Discussed options including below-knee amputation which patient and his mother are in agreement. Shelby will schedule next week for left lower extremity BKA
--- NOTE | 2023-12-09 23:02 | PN ---
PROGRESS NOTE DATE OF SERVICE: 12/09/2023 SUBJECTIVE: This 58-year-old gentleman admitted with left leg postoperative wound infection, is being closely monitored at this time. Vascular Surgery is planning amputation. No chest pain, no palpitation. OBJECTIVE: VITAL SIGNS: Pulse 63, blood pressure 150/70, respirations 16. CHEST: Few scattered rhonchi. ABDOMEN: Soft. NERVOUS SYSTEM: Nonfocal. LABORATORY DATA: Sodium 133, hemoglobin 8.4. ASSESSMENT: 1. Left leg postoperative wound infection, dry gangrene, possible sepsis present on admission for amputation. 2. Change in mental status, acute metabolic encephalopathy. 3. Acute renal failure, possibly vancomycin toxicity. 4. Severe anemia, possible acute blood loss anemia, multifactorial, status post transfusion. 5. Elevated WBC. 6. Rule out mild CHF with acute exacerbation, acute on chronic systolic dysfunction. 7. Troponin 0.617, possibly secondary to renal failure per Cardiology. 8. Chronic obstructive pulmonary disease. 9. History of DVT of the right leg. 10.History of MRSA. 11.Multiple complex medical issues. RECOMMENDATIONS AND DISCUSSION: Recommended to continue current management, continue symptomatic treatment. Continue with antibiotics. Monitor creatinine. White count is normal closely. Cultures are negative so far. Closely follow with vascular surgery for possible surgery. Further recommendations to follow. Sensorium has improved much. MMODL / IJN: [id number] /
[2023-12-10 08:38] LABS: Basophils # (A) 0.1 k/uL (0-0.2); Basophils % (A) 1 %; Eosinophils # (A) 0.8 k/uL (0-0.7); Eosinophils % (A) 8 %; HCT 32.1 % (39.0-53.0); HGB 9.6 gm/dL (13.0-17.5); Hypochromasia Marked; Lymphocytes # (A) 1.2 k/uL (1.0-4.8); Lymphocytes % (A) 12 %; MCHC 29.8 g/dL (31.0-37.0); MCV 87.1 fL (80.0-100.0); Mean Platelet Volume 8.1; Monocytes # (A) 0.7 k/uL (0-1.0); Monocytes % (A) 7 %; Neutrophils # (A) 7.2 k/uL (1.3-7.7); Neutrophils % (A) 72 %; Platelet Count 478 k/uL (150-450); RBC 3.69 m/uL (4.30-5.90); RDW 15.2 % (11.5-15.5)
--- NOTE | 2023-12-10 08:39 | P.PN ---
Subjective Progress Note Date: 12/10/23 Principal diagnosis: PAD The patient is a 58-year-old gentleman with a past medical history significant for cardiomyopathy with a EF between 40 to 45% as well as hypertension and dyslipidemia and anemia and chronic kidney disease who was admitted to the hospital with acute renal failure secondary to vancomycin toxicity causing acute renal failure. We consulted to see the patient because of abnormal cardiac enzymes and mildly abnormal troponin which we felt secondary to nephropathy. December 10, 2023 The patient was seen and evaluated this morning. He is asymptomatic. He is hemodynamically stable. The EKG showed no ischemic changes. The echo was the same as before. Currently he is on heparin for the PAD and acute limb ischemia. No need for heparin from the cardiac standpoint of view. The examination is remarkable for regular rhythm with clear breathing sounds bilaterally and no edema was noted in the right lower extremity Assessment Acute renal failure Chronic anemia Lower extremities PAD Cardiomyopathy Plan Continue the current medical regimen Follow-up with the patient Objective - Vital Signs Vital signs: Vital Signs Temp 98.1 F 12/10/23 04:00 Pulse 63 12/10/23 04:00 Resp 16 12/10/23 04:00 BP 106/59 12/10/23 04:00 Pulse Ox 96 12/10/23 04:00 FiO2 Intake & Output 12/09/23 12/10/23 12/10/23 18:59 06:59 18:59 Intake Total 1041.314 250 Output Total 800 1000 Balance 241.314 -750 Intake: IV 20 Invasive Line 2 10 Invasive Line 5 10 Intake, IV Titration 245.314 250 Amount Heparin Sod,Pork in 0.45% 245.314 250 NaCl 25,000 unit In 0.45 % NaCl 1 250ml.bag @ 11. 023 UNITS/KG/HR 10 mls/hr IV .Q24H [facility] Rx#: [id number] Oral 776 Output: Urine 800 1000 Other: Voiding Method Indwelling Catheter Indwelling Catheter - Labs CBC & Chem 7: 12/09/23 05:43 12/09/23 05:43 Labs: Microbiology - Last 24 Hours (Table) 12/06/23 01:04 Blood Culture - Preliminary Blood
[2023-12-10 09:02] LABS: African American GFR (CKD) 17 (>60 ml/min/1.73 sqM); Anion Gap 11 mmol/L; Blood Urea Nitrogen 37 mg/dL (9-20); Calcium 8.3 mg/dL (8.4-10.2); Carbon Dioxide 17 mmol/L (22-30); Chloride 108 mmol/L (98-107); Glucose 81 mg/dL (74-99); Non-African American GFR(CKD) 15 (>60 ml/min/1.73 sqM); Potassium 4.3 mmol/L (3.5-5.1); Sodium 136 mmol/L (137-145)
--- NOTE | 2023-12-10 11:42 | P.PN ---
Subjective Progress Note Date: 12/10/23 Principal diagnosis: Left lower extremity nonhealing wounds, gangrene foot Patient is seen and examined today as a follow-up. He is in the cardiac stepdown unit. He is much more awake and alert today. States he feels a little off. He has been afebrile, states pain in left lower extremity is controlled. Dressings are intact with drainage. Hemoglobin stable at 9.6, kidney function is worsening with BUN 37 and creatinine 4.11 today. He currently has IV heparin running, cardiology has cleared him for surgery. Objective - Vital Signs Vital signs: Vital Signs Temp 98 F 12/10/23 08:00 Pulse 66 12/10/23 08:00 Resp 16 12/10/23 08:00 BP 93/53 12/10/23 08:00 Pulse Ox 93 L 12/10/23 08:00 FiO2 Intake & Output 12/09/23 12/10/23 12/10/23 18:59 06:59 18:59 Intake Total 1041.314 250 240 Output Total 800 1000 Balance 241.314 -750 240 Intake: IV 20 Invasive Line 2 10 Invasive Line 5 10 Intake, IV Titration 245.314 250 Amount Heparin Sod,Pork in 0.45% 245.314 250 NaCl 25,000 unit In 0.45 % NaCl 1 250ml.bag @ 11. 023 UNITS/KG/HR 10 mls/hr IV .Q24H [facility] Rx#: [id number] Oral 776 240 Output: Urine 800 1000 Other: Voiding Method Indwelling Catheter Indwelling Catheter - Exam General appearance: The patient is alert, oriented, appears in no acute distress. HET: Head is normocephalic and atraumatic. Pupils are equal and reactive. Neck: Supple. Abdomen: Soft, nondistended. Extremities: Left lower extremity incision on thigh well-healed. Dressing to left lower extremity with drainage. Neurological: No focal deficits. - Labs CBC & Chem 7: 12/10/23 07:13 12/10/23 07:13 Labs: Abnormal Lab Results - Last 24 Hours (Table) 12/10/23 12/10/23 12/10/23 Range/Units 07:13 07:13 07:13 RBC 3.69 L (4.30-5.90) m/uL Hgb 9.6 L (13.0-17.5) gm/dL Hct 32.1 L (39.0-53.0) % MCHC 29.8 L (31.0-37.0) g/dL Plt Count 478 H (150-450) k/uL Eosinophils # 0.8 H (0-0.7) k/uL APTT 43.5 H (22.0-30.0) sec Sodium 136 L (137-145) mmol/L Chloride 108 H (98-107) mmol/L Carbon Dioxide 17 L (22-30) mmol/L BUN 37 H (9-20) mg/dL Creatinine 4.11 H (0.66-1.25) mg/dL Calcium 8.3 L (8.4-10.2) mg/dL Microbiology - Last 24 Hours (Table) 12/06/23 01:04 Blood Culture - Preliminary Blood Assessment and Plan Assessment: 1. Gangrene left foot 2. History of peripheral arterial disease with critical limb ischemia of the left lower extremity status post left common femoral endarterectomy and femoral to below-knee popliteal bypass 3. Nonhealing left lower extremity wounds 4. Altered mental status changes 5. Leukocytosis 6. Fever 7. Recent wound culture with MRSA and Pseudomonas on outpatient IV antibiotics Plan: 1. Continue local wound care 2. Continue recommendations from infectious disease 3. Continue with recommendations from cardiology. Patient has been cleared by cardiology to proceed with below the knee amputation 4. Rest of medical management per primary medical team 5. Patient is tentatively scheduled for left below the knee amputation Sunday 6. Will need to hold heparin 6 hours prior to surgery 7. Encourage patient to get up into chair 8. Physical therapy and Occupational Therapy on consult Thank you for this consultation, we will continue to follow. The impression and plan of care has been dictated as directed. Dr. Stearns I performed a history and examination of this patient, discussed the same with the dictator. I agree with the dictator's note ,documented as a scribe. Any additional findings or plans will be noted.
--- NOTE | 2023-12-10 21:43 | PN ---
PROGRESS NOTE DATE OF SERVICE: 12/10/2023 SUBJECTIVE: This is a 58-year-old gentleman who was admitted with left hip postoperative wound infection, had surgery planned this week. No chest pain, no palpitations, no fever. OBJECTIVE: VITAL SIGNS: Pulse 63, blood pressure 100/60, respirations 16. CHEST: Clear to auscultation. CARDIOVASCULAR: S1, S2. ABDOMEN: Soft. NERVOUS SYSTEM: Nonfocal. LABORATORY DATA: Sodium 133, rest of the labs noted, creatinine is 4.11. ASSESSMENT: 1. Left leg postoperative wound infection, dry gangrene pulse, possible sepsis present on admission for amputation. 2. Change in mental status, acute metabolic encephalopathy. 3. Acute renal failure, possibly vancomycin toxicity. 4. Severe anemia, possible acute blood loss anemia, multifactorial, status post transfusion. 5. Increased WBC. 6. Possible CHF acute exacerbation, acute on chronic systolic dysfunction. 7. Troponin 0.617, possible acute renal failure per Cardiology. 8. COPD. 9. History of DVT. 10.History of MRSA. 11.Multiple complex medical issues. RECOMMENDATIONS: Recommended to continue current management, continue symptomatic treatment. Otherwise at this time closely follow with multiple consultants including Nephrology and closely follow with vascular surgery. Empiric antibiotics. Guarded prognosis because of multiple complex medical issues and further recommendations to follow. See orders for details. MMODL / IJN: [id number] /
[2023-12-11 06:50] LABS: African American GFR (CKD) 18 (>60 ml/min/1.73 sqM); Anion Gap 9 mmol/L; Blood Urea Nitrogen 40 mg/dL (9-20); Calcium 8.6 mg/dL (8.4-10.2); Carbon Dioxide 19 mmol/L (22-30); Chloride 109 mmol/L (98-107); Glucose 91 mg/dL (74-99); Non-African American GFR(CKD) 15 (>60 ml/min/1.73 sqM); Potassium 4.6 mmol/L (3.5-5.1); Sodium 137 mmol/L (137-145)
[2023-12-11 07:34] LABS: Basophils # (A) 0.1 k/uL (0-0.2); Basophils % (A) 1 %; Eosinophils # (A) 0.7 k/uL (0-0.7); Eosinophils % (A) 8 %; HCT 31.1 % (39.0-53.0); HGB 9.5 gm/dL (13.0-17.5); Hypochromasia Marked; Lymphocytes # (A) 1.2 k/uL (1.0-4.8); Lymphocytes % (A) 13 %; MCH 26.4 pg (25.0-35.0); MCHC 30.6 g/dL (31.0-37.0); MCV 86.2 fL (80.0-100.0); Mean Platelet Volume 8.1; Monocytes # (A) 0.7 k/uL (0-1.0); Monocytes % (A) 7 %; Neutrophils # (A) 6.6 k/uL (1.3-7.7); Neutrophils % (A) 70 %; Platelet Count 474 k/uL (150-450); RBC 3.61 m/uL (4.30-5.90); RDW 15.5 % (11.5-15.5); WBC 9.4 k/uL (3.8-10.6)
[2023-12-11] MEDS ORDERED: REGADENOSON 0.4 MG/5 ML SYRINGE IV PRN (09:17)
[2023-12-11] MEDS ORDERED: AMINOPHYLLINE 500 MG/20 ML VIAL IV PRN (09:17)
[2023-12-11] MEDS ORDERED: CAFFEINE CITRATE 60 MG/3 ML VIAL IV PRN (09:17)
--- NOTE | 2023-12-11 09:29 | P.NPCON ---
History of Present Illness - Reason for Consult acute renal failure - History of Present Illness Reason for consultation: Acute kidney injury History of present illness: Patient is a 58-year-old male seen in renal consultation for acute kidney injury. Patient's creatinine dated November 22, 2023 was 0.75. This admission it was elevated at 2.15 dated December 05, 2023 and was up to 4.11 yesterday. It is fairly stable at 4.01 today. Patient came from an extended care facility due to infection of his left lower extremity. Patient was also confused prior to admission. Patient underwent left common femoral endarterectomy and femoral to below the knee popliteal artery bypass and left femoral-popliteal bypass balloon angioplasty in September 2023. Patient subsequently developed infection and was receiving IV antibiotics. Patient was hesitant to undergo below the knee amputation. He is being followed by vascular surgery and now is agreeable to undergo below the knee amputation which is scheduled for Sunday. Patient's vancomycin level was noted to be elevated at 43 dated December 05, 2023. Oral intake is good. Patient is nonoliguric. Has a Stearns catheter. Denies gross hematuria or dysuria. Denies history of diabetes or coronary artery disease. Denies use of nonsteroidals. Vital signs are stable. General: No acute distress. HEENT: Head exam is unremarkable. LUNGS: No audible rhonchi or wheezes. HEART: Rate and Rhythm are regular. ABDOMEN: Nontender. EXTREMITITES: Left lower extremity wrapped. No drainage. No edema. Past Medical History Past Medical History: COPD, Vascular Disorder Additional Past Medical History / Comment(s): PVD, DVT R leg-recent R femoral popliteal bypass at [facility] 02/22/17, History of Any Multi-Drug Resistant Organisms: MRSA Date of last positivie culture/infection: 11/06/23 MRSA MDRO Source:: Left Leg Past Surgical History: Orthopedic Surgery Additional Past Surgical History / Comment(s): R fem pop bypass 02/22/17 [facility], bilateral knee arthroscopic surgeries. Past Anesthesia/Blood Transfusion Reactions: No Reported Reaction Additional Past Anesthesia/Blood Transfusion Reaction / Comment(s): Pt is currently receiving blood-no reaction at this time. Past Psychological History: Anxiety, Depression Smoking Status: Current every day smoker Past Alcohol Use History: Daily, Heavy Past Drug Use History: None Reported - Past Family History Mother Family Medical History: Cancer, Hyperlipidemia Additional Family Medical History / Comment(s): Mother had skin cancer. She is living. Father Family Medical History: Hyperlipidemia, Hypertension Additional Family Medical History / Comment(s): Father has heart condition. Medications and Allergies Home Medications Medication Instructions Recorded Confirmed Type Atorvastatin [Lipitor] 40 mg PO HS tab 09/10/23 12/05/23 Rx Mirtazapine [Remeron] 15 mg PO HS tab 09/10/23 12/05/23 Rx Thiamine [Vitamin B-1] 100 mg PO DAILY #30 tab 09/19/23 12/05/23 Rx Acetaminophen [Tylenol Arthritis] 650 mg PO Q6H PRN 11/05/23 12/05/23 History Citalopram Hydrobromide [CeleXA] 40 mg PO HS 11/05/23 12/05/23 History Famotidine [Pepcid] 10 mg PO DAILY 11/05/23 12/05/23 History Magnesium Oxide [Mag-Ox] 400 mg PO DAILY 11/05/23 12/05/23 History Naloxone HCl [Narcan] 4 mg NASAL ONCE PRN 11/05/23 12/05/23 History Naloxone [Narcan] 0.4 mg IM ONCE PRN 11/05/23 12/05/23 History Gabapentin [Neurontin] 600 mg PO TID@0700,1300,1900 #30 11/08/23 12/05/23 Rx cap Metoprolol Succinate (ER) [Toprol 25 mg PO DAILY 11/22/23 12/05/23 History Xl] Rivaroxaban [Xarelto] 2.5 mg PO BID@0700,1900 11/22/23 12/05/23 History Tamsulosin [Flomax] 0.4 mg PO DAILY 11/22/23 12/05/23 History Vancomycin 1,500 mg IVPB BID@0900,2100 11/22/23 12/05/23 History oxyCODONE-APAP 7.5-325MG [Percocet 1 tab PO Q4H 11/22/23 12/05/23 History 7.5-325 mg] oxyCODONE-APAP 7.5-325MG [Percocet 1 tab PO Q4HR PRN 11/22/23 12/05/23 History 7.5-325 mg] Ascorbic Acid [Vitamin C] 500 mg PO DAILY 12/05/23 12/05/23 History Aspirin EC [Ecotrin Low Dose] 81 mg PO DAILY 12/05/23 12/05/23 History Calcium Carbonate/Vitamin D3 1 tab PO DAILY 12/05/23 12/05/23 History [Calcium 600 mg-Vit D3 5 mcg (200 unit)] Allergies Allergy/AdvReac Type Severity Reaction Status Date / Time No Known Allergies Allergy Verified 12/05/23 12:31 Physical Exam Vitals: Vital Signs Temp Pulse Resp BP Pulse Ox 12/11/23 04:00 97.6 F 60 16 104/57 94 L 12/11/23 00:00 98.4 F 60 16 112/56 95 12/10/23 19:31 97.8 F 61 16 110/60 96 12/10/23 16:00 97.9 F 67 16 116/64 96 12/10/23 12:00 97.9 F 64 16 107/62 97 Intake and Output 12/10/23 12/11/23 12/11/23 22:59 06:59 14:59 Intake Total 490 91.454 133.97 Output Total 650 775 Balance -160 -683.546 133.97 Intake: Intake, IV Titration 250 91.454 133.97 Amount Heparin Sod,Pork in 0.45% 250 91.454 133.97 NaCl 25,000 unit In 0.45 % NaCl 1 250ml.bag @ 11. 023 UNITS/KG/HR 10 mls/hr IV .Q24H [facility] Rx#: [id number] Oral 240 0 Output: Urine 650 775 Other: Voiding Method Indwelling Catheter Indwelling Catheter Results - Lab Results Most recent lab results Calcium 8.6 mg/dL (8.4-10.2) 12/11/23 06:15 Magnesium 2.1 mg/dL (1.6-2.3) 12/05/23 13:08 12/11/23 06:15 12/11/23 06:15 Assessment and Plan Plan: Assessment: 1. Acute kidney injury secondary to ATN secondary to vancomycin toxicity. Creatinine 4.01 today. Baseline creatinine 0.75 from November 2023. UA with 1+ protein. 2. Peripheral arterial disease with left foot gangrene. Underwent femoropopliteal bypass in September 2023. Scheduled for below the knee amputation this Homero. Vascular surgery and infectious disease following. 3. Chronic systolic CHF with ejection fraction of 40 to 45%. 4. Metabolic acidosis secondary to acute kidney injury. Plan: Start normal saline at 50 cc an hour. Add oral bicarb. Check renal ultrasound. Continue to monitor renal function and urine output. Avoid nephrotoxins. Continue to assess daily for need for renal replacement therapy. No urgency at this time. Discussed with patient. Thank you for the consultation. I will continue to follow the patient with you during his hospital stay.
--- NOTE | 2023-12-11 11:09 | US ---
EXAMINATION TYPE: US kidneys/renal and bladder DATE OF EXAM: 12/11/2023 COMPARISON: CTa 09/03/2023 CLINICAL INDICATION: Male, 58 years old with history of dayanara; DAYANARA EXAM MEASUREMENTS: Right Kidney: 12.3 x 6.4 x 6.1 cm Left Kidney: 12.4 x 7.0 x 6.7 cm Exam is limited due to patient body habitus. Right Kidney: No hydronephrosis or masses seen Left Kidney: Area of mixed echogenicity seen upper/mid pole, area appears to be mostly hyperechoic wi th hypoechoic component: 3.4 x 2.6 x 2.9 cm. *Limitations due to gas and rib shadowing. Bladder: Not seen Bilateral Jets seen: No IMPRESSION: Solid-appearing lytic area in the left in the left kidney measuring 3.4 cm. Is not seen on prior CT a nd may be artifactual. Further evaluation with MRI renal mass protocol recommended for complete evalu ation.
--- NOTE | 2023-12-11 11:11 | P.PN ---
Subjective Progress Note Date: 12/11/23 PAD The patient is a 58-year-old gentleman with a past medical history significant for cardiomyopathy with a EF between 40 to 45% as well as hypertension and dyslipidemia and anemia and chronic kidney disease who was admitted to the hospital with acute renal failure secondary to vancomycin toxicity causing acute renal failure. We consulted to see the patient because of abnormal cardiac enzymes and mildly abnormal troponin which we felt secondary to nephropathy. December 10, 2023 The patient was seen and evaluated this morning. He is asymptomatic. He is hemodynamically stable. The EKG showed no ischemic changes. The echo was the same as before. Currently he is on heparin for the PAD and acute limb ischemia. No need for heparin from the cardiac standpoint of view. The examination is remarkable for regular rhythm with clear breathing sounds bilaterally and no edema was noted in the right lower extremity 12/10 This morning, patient states he had an episode of a twinge in his chest and the left upper area. It started after he felt a pain from his foot that went up his leg. It is completely gone now. EKG shows changes from prior. Chest wall is nontender. Patient is on a heparin drip with plan for BKA on Sunday. Blood pressure 104/57, heart rate 60, pulse ox 94% on room air. Examination reveals regular rhythm, clear lung sounds, no edema. Dressing in place to the left lower extremity. Assessment Acute renal failure Chronic anemia Rule out coronary artery disease Lower extremities PAD, scheduled for BKA Sunday Cardiomyopathy Plan Continue the current medical regimen Schedule patient for Lexiscan stress test tomorrow Follow-up with the patient Nurse practitioner note has been reviewed, I agree with documented findings and plan of care. Patient was seen and examined. Objective - Vital Signs Vital signs: Vital Signs Temp 97.6 F 12/11/23 04:00 Pulse 60 12/11/23 04:00 Resp 16 12/11/23 04:00 BP 104/57 12/11/23 04:00 Pulse Ox 94 L 12/11/23 04:00 FiO2 Intake & Output 12/10/23 12/11/23 12/11/23 18:59 06:59 18:59 Intake Total 840 91.454 Output Total 650 775 Balance 190 -683.546 Intake: Intake, IV Titration 250 91.454 Amount Heparin Sod,Pork in 0.45% 250 91.454 NaCl 25,000 unit In 0.45 % NaCl 1 250ml.bag @ 11. 023 UNITS/KG/HR 10 mls/hr IV .Q24H [facility] Rx#: [id number] Oral 590 Output: Urine 650 775 Other: Voiding Method Indwelling Catheter Indwelling Catheter - Labs CBC & Chem 7: 12/11/23 06:15 12/11/23 06:15 Labs: Abnormal Lab Results - Last 24 Hours (Table) 12/10/23 12/10/23 12/10/23 Range/Units 07:13 07:13 07:13 RBC 3.69 L (4.30-5.90) m/uL Hgb 9.6 L (13.0-17.5) gm/dL Hct 32.1 L (39.0-53.0) % MCHC 29.8 L (31.0-37.0) g/dL Plt Count 478 H (150-450) k/uL Eosinophils # 0.8 H (0-0.7) k/uL APTT 43.5 H (22.0-30.0) sec Sodium 136 L (137-145) mmol/L Chloride 108 H (98-107) mmol/L Carbon Dioxide 17 L (22-30) mmol/L BUN 37 H (9-20) mg/dL Creatinine 4.11 H (0.66-1.25) mg/dL Calcium 8.3 L (8.4-10.2) mg/dL 12/10/23 12/10/23 12/11/23 Range/Units 16:09 22:36 06:15 RBC 3.61 L (4.30-5.90) m/uL Hgb 9.5 L (13.0-17.5) gm/dL Hct 31.1 L (39.0-53.0) % MCHC 30.6 L (31.0-37.0) g/dL Plt Count 474 H (150-450) k/uL Eosinophils # (0-0.7) k/uL APTT 42.4 H 53.9 H (22.0-30.0) sec Sodium (137-145) mmol/L Chloride (98-107) mmol/L Carbon Dioxide (22-30) mmol/L BUN (9-20) mg/dL Creatinine (0.66-1.25) mg/dL Calcium (8.4-10.2) mg/dL 12/11/23 Range/Units 06:15 RBC (4.30-5.90) m/uL Hgb (13.0-17.5) gm/dL Hct (39.0-53.0) % MCHC (31.0-37.0) g/dL Plt Count (150-450) k/uL Eosinophils # (0-0.7) k/uL APTT (22.0-30.0) sec Sodium (137-145) mmol/L Chloride 109 H (98-107) mmol/L Carbon Dioxide 19 L (22-30) mmol/L BUN 40 H (9-20) mg/dL Creatinine 4.01 H (0.66-1.25) mg/dL Calcium (8.4-10.2) mg/dL
[2023-12-11] MEDS: SODIUM BICARBONATE TAB 650 MG TAB PO SCH (11:25)
[2023-12-11] MEDS: SODIUM CHLORIDE 0.9% 1,000 ML IV SCH (11:28)
--- NOTE | 2023-12-11 13:38 | P.PN ---
Subjective Progress Note Date: 12/11/23 Principal diagnosis: Left lower extremity nonhealing wounds, gangrene foot She is seen and examined today as a follow-up. Patient states he had a cough and some chest pain earlier this morning. He had some EKG changes reported from cardiology. He is scheduled to undergo Lexiscan stress test tomorrow and further recommendations from cardiology. Patient currently denies any chest pain or shortness of breath. He is undergoing ultrasound. Objective - Vital Signs Vital signs: Vital Signs Temp 97.6 F 12/11/23 04:00 Pulse 60 12/11/23 04:00 Resp 16 12/11/23 04:00 BP 104/57 12/11/23 04:00 Pulse Ox 94 L 12/11/23 04:00 FiO2 Intake & Output 12/10/23 12/11/23 12/11/23 18:59 06:59 18:59 Intake Total 840 91.454 133.97 Output Total 650 775 Balance 190 -683.546 133.97 Intake: Intake, IV Titration 250 91.454 133.97 Amount Heparin Sod,Pork in 0.45% 250 91.454 133.97 NaCl 25,000 unit In 0.45 % NaCl 1 250ml.bag @ 11. 023 UNITS/KG/HR 10 mls/hr IV .Q24H [facility] Rx#: [id number] Oral 590 Output: Urine 650 775 Other: Voiding Method Indwelling Catheter Indwelling Catheter - Exam General appearance: The patient is alert, oriented, appears in no acute dist ress. HET: Head is normocephalic and atraumatic. Pupils are equal and reactive. Neck: Supple. Abdomen: Soft, nondistended. Extremities: Left lower extremity incision on thigh well-healed. Dressing to left lower extremity with drainage. Neurological: No focal deficits. - Labs CBC & Chem 7: 12/11/23 06:15 12/11/23 06:15 Labs: Abnormal Lab Results - Last 24 Hours (Table) 12/10/23 12/10/23 12/10/23 Range/Units 07:13 16:09 22:36 RBC (4.30-5.90) m/uL Hgb (13.0-17.5) gm/dL Hct (39.0-53.0) % MCHC (31.0-37.0) g/dL Plt Count (150-450) k/uL APTT 43.5 H 42.4 H 53.9 H (22.0-30.0) sec Chloride (98-107) mmol/L Carbon Dioxide (22-30) mmol/L BUN (9-20) mg/dL Creatinine (0.66-1.25) mg/dL 12/11/23 12/11/23 Range/Units 06:15 06:15 RBC 3.61 L (4.30-5.90) m/uL Hgb 9.5 L (13.0-17.5) gm/dL Hct 31.1 L (39.0-53.0) % MCHC 30.6 L (31.0-37.0) g/dL Plt Count 474 H (150-450) k/uL APTT (22.0-30.0) sec Chloride 109 H (98-107) mmol/L Carbon Dioxide 19 L (22-30) mmol/L BUN 40 H (9-20) mg/dL Creatinine 4.01 H (0.66-1.25) mg/dL Assessment and Plan Assessment: 1. Gangrene left foot 2. History of peripheral arterial disease with critical limb ischemia of the left lower extremity status post left common femoral endarterectomy and femoral to below-knee popliteal bypass 3. Nonhealing left lower extremity wounds 4. Altered mental status changes 5. Leukocytosis 6. Fever 7. Recent wound culture with MRSA and Pseudomonas on outpatient IV antibiotics 8. Acute renal failure 9. Chest pain Plan: 1. Continue local wound care 2. Continue recommendations from infectious disease 3. Continue with recommendations from cardiology, await cardiac clearance 4. Rest of medical management per primary medical team 5. Patient is tentatively scheduled for left below the knee amputation Sunday 6. Will need to hold heparin 6 hours prior to surgery 7. Encourage patient to get up into chair 8. Physical therapy and Occupational Therapy on consult 9. Nephrology consulted for acute kidney injury Thank you for this consultation, we will continue to follow. The impression and plan of care has been dictated as directed. Dr. Stearns I performed a history and examination of this patient, discussed the same with the dictator. I agree with the dictator's note ,documented as a scribe. Any additional findings or plans will be noted.
--- NOTE | 2023-12-11 14:51 | P.PN ---
Subjective This is a pleasant 58 years old male with past medical history of multiple medical problems, he was transferred from [facility] for altered mental status. He is a known case of left leg cellulitis and wounds secondary to MRSA. Patient was on IV vancomycin. Also patient was evidence of acute kidney injury with creatinine went up from 2.1 on admission today is 4.01. Baseline is around 0.7. Has been followed closely by anesthesia attending and he was started on gentle hydration and sodium bicarb pills Renal ultrasound showing possible solid lytic lesion on the left kidney 3.4 x 2.6 x 2.9 cm Patient was shown to have peripheral vascular disease with chronic critical left lower extremity ischemia s/p left common femoral and endarterectomy and left femoral-popliteal bypass Vital signs stable and patient is afebrile Labs reviewed and look stable Hemoglobin is 9.5 Creatinine 4.01 Review of systems CONSTITUTIONAL: No fever, no malaise, no fatigue. HEENT: No recent visual problems or hearing problems. Denied any sore throat. CARDIOVASCULAR: No orthopnea, PND, no palpitations, no syncope. PULMONARY: No shortness of breath, no cough, no hemoptysis. GASTROINTESTINAL: No diarrhea, no nausea, no vomiting, no abdominal pain. Normoactive bowel sounds. NEUROLOGICAL: No headaches, no weakness, no numbness. Active Medications Generic Name Dose Route Start Last Admin Trade Name Freq PRN Reason Stop Dose Admin Acetaminophen 650 mg 12/05/23 18:13 12/06/23 21:10 Acetaminophen Tab 325 Mg Tab PO 650 mg Q6H PRN Administration Fever and/ or Pain Acetaminophen 650 mg 12/05/23 23:31 12/06/23 02:27 Acetaminophen Suppository 650 Mg Supp RECTAL 650 mg Q6HR PRN Administration Fever and/ or Pain Amiodarone HCl 200 mg 12/08/23 21:00 12/11/23 08:09 Amiodarone 200 Mg Tab PO 200 mg BID OLVIN Administration Aspirin 81 mg 12/06/23 09:00 12/11/23 08:09 Aspirin 81 Mg PO 81 mg DAILY OLVIN Administration Calcium Carbonate 1 each 12/06/23 09:00 12/11/23 08:09 Calcium Carb-Vit D 500 Mg-5 Mcg Tab PO 1 each DAILY OLVIN Administration Citalopram Hydrobromide 40 mg 12/05/23 21:00 12/10/23 20:12 Citalopram Hydrobromide 20 Mg Tab PO 40 mg HS OLVIN Administration Famotidine 10 mg 12/11/23 21:00 Famotidine 20 Mg/2 Ml Vial IV Q12HR [facility] Gabapentin 100 mg 12/07/23 21:00 12/11/23 08:09 Gabapentin 100 Mg Cap PO 100 mg BID OLVIN Administration Heparin Sodium (Porcine) 0 unit 12/07/23 18:53 12/11/23 08:21 Heparin Sodium 1,000 Un/Ml (10ml Vl) IV 4,000 unit PER PROTOCOL PRN Administration Low PTT Protocol Hydromorphone HCl 1 mg 12/05/23 18:15 12/11/23 14:41 Hydromorphone 1 Mg/Ml 1 Ml Syringe IVP 1 mg Q4HR PRN Administration Pain Daptomycin 350 mg/ Sodium 50 mls @ 100 mls/hr 12/08/23 00:00 12/09/23 23:57 Chloride IVPB 100 mls/hr Q48H [facility]LVIN Administration Protocol Cefepime HCl 1 gm/ Sodium 50 mls @ 12.5 mls/hr 12/07/23 12:00 12/11/23 11:24 Chloride IVPB 12.5 mls/hr Q12H [facility] Administration Protocol Heparin Sodium/Sodium Chloride 250 mls @ 10 mls/hr 12/07/23 19:15 12/11/23 08:17 25,000 unit/ Sodium Chloride IV 23.23 units/kg/hr .Q24H [facility] 21.074 mls/hr Administration Protocol 11.023 UNITS/KG/HR Sodium Chloride 1,000 mls @ 50 mls/hr 12/11/23 09:30 12/11/23 11:28 Saline 0.9% IV 50 mls/hr .Q20H [facility]IN Administration Magnesium Oxide 400 mg 12/06/23 09:00 12/11/23 08:09 Magnesium Oxide 400 Mg Tab PO 400 mg DAILY OLVIN Administration Metoprolol Succinate 25 mg 12/06/23 09:00 12/11/23 08:09 Metoprolol Succinate (Er) 25 Mg Tab.Er.24h PO 25 mg DAILY OLVIN Administration Mirtazapine 15 mg 12/05/23 21:00 12/10/23 20:12 Mirtazapine 15 Mg Tab PO 15 mg HS OLVIN Administration Naloxone HCl 0.2 mg 12/05/23 15:19 Naloxone 0.4 Mg/Ml 1 Ml Vial IV Q2M PRN Opioid Reversal Oxycodone/Acetaminophen 1 each 12/05/23 18:35 12/11/23 11:25 Oxycodone-Apap 7.5-325mg 1 Each Tab PO 1 each Q4H PRN Administration pain Sodium Bicarbonate 650 mg 12/11/23 09:30 12/11/23 11:25 Sodium Bicarbonate Tab 650 Mg Tab PO 650 mg BID OLVIN Administration Tamsulosin HCl 0.4 mg 12/06/23 09:00 12/11/23 08:09 Tamsulosin 0.4 Mg Cap.Er.24h PO 0.4 mg DAILY OLVIN Administration Thiamine HCl 100 mg 12/06/23 09:00 12/11/23 08:09 Thiamine 100 Mg Tab PO 100 mg DAILY OLVIN Administration Objective - Vital Signs Vital signs: Vital Signs Temp 98.5 F 12/11/23 08:10 Pulse 60 12/11/23 11:25 Resp 17 12/11/23 11:25 BP 105/59 12/11/23 11:25 Pulse Ox 100 12/11/23 11:25 FiO2 Intake & Output 12/10/23 12/11/23 12/11/23 18:59 06:59 18:59 Intake Total 840 91.454 373.97 Output Total 650 775 Balance 190 -683.546 373.97 Intake: Intake, IV Titration 250 91.454 133.97 Amount Heparin Sod,Pork in 0.45% 250 91.454 133.97 NaCl 25,000 unit In 0.45 % NaCl 1 250ml.bag @ 11. 023 UNITS/KG/HR 10 mls/hr IV .Q24H [facility] Rx#: [id number] Oral 590 240 Output: Urine 650 775 Other: Voiding Method Indwelling Catheter Indwelling Catheter Indwelling Catheter - Exam GENERAL: The patient is alert and oriented x3, not in any acute distress. Well developed, well nourished. HEENT: Pupils are round and equally reacting to light. EOMI. No scleral icterus. No conjunctival pallor. Normocephalic, atraumatic. No pharyngeal erythema. No thyromegaly. CARDIOVASCULAR: S1 and S2 present. No murmurs, rubs, or gallops. PULMONARY: Chest is clear to auscultation, no wheezing , no crackles. ABDOMEN: Soft, nontender, nondistended, normoactive bowel sounds. No palpable organomegaly. MUSCULOSKELETAL: No joint swelling or deformity. -EXTREMITIES: No cyanosis, clubbing, or pedal edema. Left lower extremity cellulitis, and gangrene, with dressing in place NEUROLOGICAL: Gross neurological examination did not reveal any focal deficits. SKIN: No rashes. no petechiae. - Labs CBC & Chem 7: 12/11/23 06:15 12/11/23 06:15 Labs: Abnormal Lab Results - Last 24 Hours (Table) 12/10/23 12/10/23 12/11/23 Range/Units 16:09 22:36 06:15 RBC 3.61 L (4.30-5.90) m/uL Hgb 9.5 L (13.0-17.5) gm/dL Hct 31.1 L (39.0-53.0) % MCHC 30.6 L (31.0-37.0) g/dL Plt Count 474 H (150-450) k/uL APTT 42.4 H 53.9 H (22.0-30.0) sec Chloride (98-107) mmol/L Carbon Dioxide (22-30) mmol/L BUN (9-20) mg/dL Creatinine (0.66-1.25) mg/dL 12/11/23 Range/Units 06:15 RBC (4.30-5.90) m/uL Hgb (13.0-17.5) gm/dL Hct (39.0-53.0) % MCHC (31.0-37.0) g/dL Plt Count (150-450) k/uL APTT (22.0-30.0) sec Chloride 109 H (98-107) mmol/L Carbon Dioxide 19 L (22-30) mmol/L BUN 40 H (9-20) mg/dL Creatinine 4.01 H (0.66-1.25) mg/dL Microbiology - Last 24 Hours (Table) 12/06/23 01:04 Blood Culture - Final Blood Assessment and Plan Assessment: Left lower extremity cellulitis and wound infection and gangrene secondary to ischemic peripheral artery disease. Plan for BKA on Sunday peripheral vascular disease with chronic critical left lower extremity ischemia s/p left common femoral and endarterectomy and left femoral-popliteal bypass Acute kidney injury Metabolic encephalopathy improving left kidney lytic lesion 3.4 x 2.6 x 2.9 cm Acute metabolic acidemia COPD no exacerbation Nicotine dependence Anxiety and depression, not an active issue Plan: Stress test per cardiology team Discontinue IV vancomycin Continue with antibiotic as per ID team , currently on IV cefepime Follow-up culture result Hold Xarelto and continue with heparin drip Continue gentle hydration and sodium bicarb Plan for left BKA on Wednesday 12/13 Patient is on aspirin 81 mg which is on Several consultants on the case including ID team, anesthesia attending, vascular surgery and 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 Continue same treatment. Continue with symptomatic treatment. Resume home medication. Monitor labs and vitals. DVT and GI prophylaxis. Further recommendations as per clinical course of the pat ient DVT prophylaxis: heparin GI Prophylaxis: Pepcid PT/OT: Pending Prognosis is guarded
[2023-12-11 15:34] VITALS: BMI 25.0
[2023-12-11] MEDS: FAMOTIDINE 20 MG/2 ML VIAL IV SCH (21:17)
--- NOTE | 2023-12-11 22:36 | P.PN ---
Subjective Progress Note Date: 12/10/23 Principal diagnosis: Reason for follow-up is sepsis and left lower extremity cellulitis Patient is a 58-year-old male with a past medical history significant for COPD also with a history of PAD with recent multiple admission to the hospital with necrotic left foot requiring revascularization recently did have a wound infection culture positive for MRSA and Pseudomonas patient did get a PICC line and was receiving IV vancomycin and cefepime at the intermediate presented to the hospital mental status changes elevated vancomycin trough and creatinine. On today's evaluation that is 12/10/2023,the patient denies any fever or any chills, patient is breathing comfortably on room air, the patient denies chest pain shortness of breath and no significant cough, patient denies abdominal pain, no nausea vomiting or diarrhea. Patient pain to the left lower extremity is currently controlled. The patient white count remains normal at 10.0 creatinine is 4.11 Objective - Vital Signs Vital signs: Vital Signs Temp 98 F 12/10/23 08:00 Pulse 66 12/10/23 08:00 Resp 16 12/10/23 08:00 BP 93/53 12/10/23 08:00 Pulse Ox 93 L 12/10/23 08:00 FiO2 Intake & Output 12/09/23 12/10/23 12/10/23 18:59 06:59 18:59 Intake Total 1041.314 250 240 Output Total 800 1000 Balance 241.314 -750 240 Intake: IV 20 Invasive Line 2 10 Invasive Line 5 10 Intake, IV Titration 245.314 250 Amount Heparin Sod,Pork in 0.45% 245.314 250 NaCl 25,000 unit In 0.45 % NaCl 1 250ml.bag @ 11. 023 UNITS/KG/HR 10 mls/hr IV .Q24H [facility] Rx#: [id number] Oral 776 240 Output: Urine 800 1000 Other: Voiding Method Indwelling Catheter Indwelling Catheter - Exam GENERAL DESCRIPTION: Middle-age male lying in bed in no distress RESPIRATORY SYSTEM: Unlabored breathing , decreased breath sounds at bases HEART: S1 S2 regular rate and rhythm , ABDOMEN: Soft , no tenderness EXTREMITIES: Left foot is necrotic, left leg is currently dressed minimal drainage on the dressing - Labs CBC & Chem 7: 12/11/23 06:15 12/11/23 06:15 Labs: Abnormal Lab Results - Last 24 Hours (Table) 12/10/23 12/10/23 12/10/23 Range/Units 07:13 07:13 07:13 RBC 3.69 L (4.30-5.90) m/uL Hgb 9.6 L (13.0-17.5) gm/dL Hct 32.1 L (39.0-53.0) % MCHC 29.8 L (31.0-37.0) g/dL Plt Count 478 H (150-450) k/uL Eosinophils # 0.8 H (0-0.7) k/uL APTT 43.5 H (22.0-30.0) sec Sodium 136 L (137-145) mmol/L Chloride 108 H (98-107) mmol/L Carbon Dioxide 17 L (22-30) mmol/L BUN 37 H (9-20) mg/dL Creatinine 4.11 H (0.66-1.25) mg/dL Calcium 8.3 L (8.4-10.2) mg/dL Microbiology - Last 24 Hours (Table) 12/06/23 01:04 Blood Culture - Preliminary Blood Assessment and Plan (1) Leukocytosis Current Visit: Yes Status: Acute Code(s): D72.829 - ELEVATED WHITE BLOOD CELL COUNT, UNSPECIFIED SNOMED Code(s): 085140395 (2) Cellulitis of left leg Current Visit: No Status: Acute Code(s): L03.116 - CELLULITIS OF LEFT LOWER LIMB SNOMED Code(s): 88451761524110061 (3) Infected wound Current Visit: No Status: Acute Code(s): T14.8XXA - OTHER INJURY OF U NSPECIFIED BODY REGION, INITIAL ENCOUNTER; L08.9 - LOCAL INFECTION OF THE SKIN AND SUBCUTANEOUS TISSUE, UNSP SNOMED Code(s): 45173378 Plan: 1patient with a chronic nonhealing wound to the left lower extremity in this patient who did have significant PAD requiring revascularization surgery now with more necrotic left foot wound left lower extremity and cellulitis with a previous culture positive for MRSA and Pseudomonas 2-patient remains to be afebrile white count has normalized culture has been negative so far, the patient will continue with daptomycin and cefepime and monitor clinical course closely Dictation was produced using [employer] software. please excuse any grammatical, word or spelling errors. Time with Patient: Less than 30
--- NOTE | 2023-12-11 22:36 | P.PN ---
Subjective Progress Note Date: 12/09/23 Principal diagnosis: Reason for follow-up is sepsis and left lower extremity cellulitis Patient is a 58-year-old male with a past medical history significant for COPD also with a history of PAD with recent multiple admission to the hospital with necrotic left foot requiring revascularization recently did have a wound infection culture positive for MRSA and Pseudomonas patient did get a PICC line and was [facility] presented to the hospital mental status changes elevated vancomycin trough and creatinine. On today's evaluation that is 12/09/2023, patient has been afebrile, patient is breathing comfortably and is currently on room air, patient denies having any significant cough no chest pain shortness of breath, patient denies nausea vomiting or diarrhea and no abdominal pain, denies any worsening pain to the left lower extremity. Patient white count is normalized to 10.5 creatinine 3.0 Objective - Vital Signs Vital signs: Vital Signs Temp 97.7 F 12/09/23 16:03 Pulse 67 12/09/23 16:03 Resp 16 12/09/23 16:03 BP 108/61 12/09/23 16:03 Pulse Ox 98 12/09/23 16:03 FiO2 Intake & Output 12/08/23 12/09/23 12/09/23 18:59 06:59 18:59 Intake Total 1859.5 540 923.314 Output Total 300 600 600 Balance 1559.5 -60 323.314 Intake: IV 30 20 Invasive Line 2 10 10 Invasive Line 4 10 Invasive Line 5 10 10 Intake, IV Titration 187.5 245.314 Amount Heparin Sod,Pork in 0.45% 187.5 245.314 NaCl 25,000 unit In 0.45 % NaCl 1 250ml.bag @ 11. 023 UNITS/KG/HR 10 mls/hr IV .Q24H [facility] Rx#: [id number] Oral 1332 540 658 Blood Product 310 Rc As-1 Unit 310 [id number] Output: Urine 300 600 600 Other: Voiding Method Indwelling Catheter Indwelling Catheter Indwelling Catheter - Exam GENERAL DESCRIPTION: Middle-age male lying in bed in no distress RESPIRATORY SYSTEM: Unlabored breathing , decreased breath sounds at bases HEART: S1 S2 regular rate and rhythm , ABDOMEN: Soft , no tenderness EXTREMITIES: Left foot is necrotic, left leg is currently dressed minimal drainage on the dressing - Labs CBC & Chem 7: 06/04/24 06:15 12/11/23 06:15 Labs: Abnormal Lab Results - Last 24 Hours (Table) 12/08/23 12/08/23 12/09/23 Range/Units 16:16 23:18 05:43 RBC 3.17 L (4.30-5.90) m/uL Hgb 8.4 L (13.0-17.5) gm/dL Hct 27.2 L (39.0-53.0) % MCHC 30.7 L (31.0-37.0) g/dL RDW 15.7 H (11.5-15.5) % Neutrophils # 7.9 H (1.3-7.7) k/uL APTT 40.2 H 45.0 H (22.0-30.0) sec Sodium (137-145) mmol/L Chloride (98-107) mmol/L Carbon Dioxide (22-30) mmol/L BUN (9-20) mg/dL Creatinine (0.66-1.25) mg/dL Glucose (74-99) mg/dL Calcium (8.4-10.2) mg/dL 12/09/23 12/09/23 Range/Units 05:43 05:43 RBC (4.30-5.90) m/uL Hgb (13.0-17.5) gm/dL Hct (39.0-53.0) % MCHC (31.0-37.0) g/dL RDW (11.5-15.5) % Neutrophils # (1.3-7.7) k/uL APTT 46.5 H (22.0-30.0) sec Sodium 133 L (137-145) mmol/L Chloride 109 H (98-107) mmol/L Carbon Dioxide 18 L (22-30) mmol/L BUN 37 H (9-20) mg/dL Creatinine 3.80 H (0.66-1.25) mg/dL Glucose 103 H (74-99) mg/dL Calcium 7.9 L (8.4-10.2) mg/dL Microbiology - Last 24 Hours (Table) 12/06/23 01:04 Blood Culture - Preliminary Blood Assessment and Plan (1) Leukocytosis Current Visit: Yes Status: Acute Code(s): D72.829 - ELEVATED WHITE BLOOD CELL COUNT, UNSPECIFIED SNOMED Code(s): 337966327 (2) Cellulitis of left leg Current Visit: No Status: Acute Code(s): L03.116 - CELLULITIS OF LEFT LOWER LIMB SNOMED Code(s): 19443182245043451 (3) Infected wound Current Visit: No Status: Acute Code(s): T14.8XXA - OTHER INJURY OF UNSPECIFIED BODY REGION, INITIAL ENCOUNTER; L08.9 - LOCAL INFECTION OF THE SKIN AND SUBCUTANEOUS TISSUE, UNSP SNOMED Code(s): 20251057 Plan: 1patient with a chronic nonhealing wound to the left lower extremity in this patient who did have significant PAD requiring revascularization surgery now with more necrotic left foot wound left lower extremity and cellulitis with a previous culture positive for MRSA and Pseudomonas 2-patient is afebrile white count has normalized, the patient will continue with daptomycin and cefepime and monitor clinical course closely Dictation was produced using [employer] dictation software. please excuse any grammatical, word or spelling errors. Time with Patient: Less than 30
--- NOTE | 2023-12-11 22:37 | P.PN ---
Subjective Progress Note Date: 12/11/23 Principal diagnosis: Reason for follow-up is sepsis and left lower extremity cellulitis Patient is a 58-year-old male with a past medical history significant for COPD also with a history of PAD with recent multiple admission to the hospital with necrotic left foot requiring revascularization recently did have a wound infection culture positive for MRSA and Pseudomonas patient did get a PICC line and was receiving [facility] vancom[facility]ime [facility] presented to the hospital mental status changes elevated vancomycin trough and creatinine. On today's evaluation that is 12/11/2023,the patient remains to be afebrile, patient is on room air not requiring supplemental oxygen and denies any shortness of breath no chest pain or cough.Patient denies having any nausea or vomiting, no abdominal pain and no diarrhea has been reported, patient denies any worsening pain to the left lower extremity or any new symptoms. Patient white count is 9.4, creatinine is 4.01 blood culture has been negative Objective - Vital Signs Vital signs: Vital Signs Temp 98.5 F 12/11/23 08:10 Pulse 60 12/11/23 11:25 Resp 17 12/11/23 11:25 BP 105/59 12/11/23 11:25 Pulse Ox 100 12/11/23 11:25 FiO2 Intake & Output 12/10/23 12/11/23 12/11/23 18:59 06:59 18:59 Intake Total 840 91.454 373.97 Output Total 650 775 Balance 190 -683.546 373.97 Intake: Intake, IV Titration 250 91.454 133.97 Amount Heparin Sod,Pork in 0.45% 250 91.454 133.97 NaCl 25,000 unit In 0.45 % NaCl 1 250ml.bag @ 11. 023 UNITS/KG/HR 10 mls/hr IV .Q24H [facility] Rx#: [id number] Oral 590 240 Output: Urine 650 775 Other: Voiding Method Indwelling Catheter Indwelling Catheter Indwelling Catheter - Exam GENERAL DESCRIPTION: Middle-age male lying in bed in no distress RESPIRATORY SYSTEM: Unlabored breathing , decreased breath sounds at bases HEART: S1 S2 regular rate and rhythm , ABDOMEN: Soft , no tenderness EXTREMITIES: left leg is currently dressed minimal drainage on the dressing - Labs CBC & Chem 7: 12/11/23 06:15 12/11/23 06:15 Labs: Abnormal Lab Results - Last 24 Hours (Table) 12/10/23 12/10/23 12/11/23 Range/Units 16:09 22:36 06:15 RBC 3.61 L (4.30-5.90) m/uL Hgb 9.5 L (13.0-17.5) gm/dL Hct 31.1 L (39.0-53.0) % MCHC 30.6 L (31.0-37.0) g/dL Plt Count 474 H (150-450) k/uL APTT 42.4 H 53.9 H (22.0-30.0) sec Chloride (98-107) mmol/L Carbon Dioxide (22-30) mmol/L BUN (9-20) mg/dL Creatinine (0.66-1.25) mg/dL 12/11/23 Range/Units 06:15 RBC (4.30-5.90) m/uL Hgb (13.0-17.5) gm/dL Hct (39.0-53.0) % MCHC (31.0-37.0) g/dL Plt Count (150-450) k/uL APTT (22.0-30.0) sec Chloride 109 H (98-107) mmol/L Carbon Dioxide 19 L (22-30) mmol/L BUN 40 H (9-20) mg/dL Creatinine 4.01 H (0.66-1.25) mg/dL Microbiology - Last 24 Hours (Table) 12/06/23 01:04 Blood Culture - Final Blood Assessment and Plan (1) Leukocytosis Current Visit: Yes Status: Acute Code(s): D72.829 - ELEVATED WHITE BLOOD CELL COUNT, UNSPECIFIED SNOMED Code(s): 815402038 (2) Cellulitis of left leg Current Visit: No Status: Acute Code(s): L03.116 - CELLULITIS OF LEFT LOWER LIMB SNOMED Code(s): 12822781613620712 (3) Infected wound Current Visit: No Status: Acute Code(s): T14.8XXA - OTHER INJURY OF UNS PECIFIED BODY REGION, INITIAL ENCOUNTER; L08.9 - LOCAL INFECTION OF THE SKIN AND SUBCUTANEOUS TISSUE, UNSP SNOMED Code(s): 99384897 Plan: 1patient with a chronic nonhealing wound to the left lower extremity in this patient who did have significant PAD requiring revascularization surgery now with more necrotic left foot wound left lower extremity and cellulitis with a previous culture positive for MRSA and Pseudomonas 2-patient remains to be afebrile white count has normalized culture has been negative so far, the patient will continue with daptomycin and cefepime if the infected port is removed patient will not need any long-term IV antibiotic therapy Dictation was produced using [employer] dictation software. please excuse any grammatical, word or spelling errors. Time with Patient: Less than 30
[2023-12-12] MEDS ORDERED: REGADENOSON 0.4 MG/5 ML SYRINGE IV PRN (06:00)
--- NOTE | 2023-12-12 09:34 | P.PN ---
Subjective This is a pleasant 58 years old male with past medical history of multiple medical problems, he was transferred from [facility] for altered mental status. He is a known case of left leg cellulitis and wounds secondary to MRSA. Patient was on IV vancomycin. Also patient was evidence of acute kidney injury with creatinine went up from 2.1 on admission today is 4.01. Baseline is around 0.7. Has been followed closely by data solutions architect and he was started on gentle hydration and sodium bicarb pills Renal ultrasound showing possible solid lytic lesion on the left kidney 3.4 x 2.6 x 2.9 cm Patient was shown to have peripheral vascular disease with chronic critical left lower extremity ischemia s/p left common femoral and endarterectomy and left femoral-popliteal bypass Vital signs stable and patient is afebrile Labs reviewed and look stable Hemoglobin is 9.5 Creatinine 4.01 12/12/2023 Patient is awake and alert pt Is going for stress test today and scheduled for Sunday for left BKA as he explains to me as well Patient was informed about his left kidney lucency suspicious for kidney mass and he wrote it down as a reminder for himself He looks comfortable and denies any other new complaints Objective - Vital Signs Vital signs: Vital Signs Temp 98.7 F 12/12/23 09:00 Pulse 72 12/12/23 09:00 Resp 18 12/12/23 09:00 BP 120/61 12/12/23 09:00 Pulse Ox 95 12/12/23 09:00 FiO2 Intake & Output 12/11/23 12/12/23 12/12/23 18:59 06:59 18:59 Intake Total 373.97 250 Output Total 600 1275 Balance -226.03 -1025 Weight 90.718 kg Intake: Intake, IV Titration 133.97 250 Amount Heparin Sod,Pork in 0.45% 133.97 250 NaCl 25,000 unit In 0.45 % NaCl 1 250ml.bag @ 11. 023 UNITS/KG/HR 10 mls/hr IV .Q24H [facility] Rx#: [id number] Oral 240 Output: Urine 600 1275 Other: Voiding Method Indwelling Catheter Indwelling Catheter Indwelling Catheter # Bowel Movements 1 - Exam GENERAL: The patient is alert and oriented x3, not in any acute distress. Well developed, well nourished. HEENT: Pupils are round and equally reacting to light. EOMI. No scleral icterus. No conjunctival pallor. Normocephalic, atraumatic. No pharyngeal erythema. No thyromegaly. CARDIOVASCULAR: S1 and S2 present. No murmurs, rubs, or gallops. PULMONARY: Chest is clear to auscultation, no wheezing , no crackles. ABDOMEN: Soft, nontender, nondistended, normoactive bowel sounds. No palpable organomegaly. MUSCULOSKELETAL: No joint swelling or deformity. -EXTREMITIES: No cyanosis, clubbing, or pedal edema. Left lower extremity cellulitis, and gangrene, with dressing in place NEUROLOGICAL: Gross neurological examination did not reveal any focal deficits. SKIN: No rashes. no petechiae. - Labs CBC & Chem 7: 12/11/23 06:15 12/11/23 06:15 Labs: Abnormal Lab Results - Last 24 Hours (Table) 12/11/23 Range/Units 14:50 APTT 58.7 H (22.0-30.0) sec Microbiology - Last 24 Hours (Table) 12/06/23 01:04 Blood Culture - Final Blood Assessment and Plan Assessment: Left lower extremity cellulitis and wound infection and gangrene secondary to ischemic peripheral artery disease. Plan for BKA on Sunday peripheral vascular disease with chronic critical left lower extremity ischemia s/p left common femoral and endarterectomy and left femoral-popliteal bypass Acute kidney injury Left kidney lucency suspicious for kidney mass Metabolic encephalopathy improving left kidney lytic lesion 3.4 x 2.6 x 2.9 cm Acute metabolic acidemia COPD no exacerbation Nicotine dependence Anxiety and depression, not an active issue Plan: Stress test per cardiology team Discontinue IV vancomycin Continue with antibiotic as per ID team , currently on IV cefepime Follow-up culture result Hold Xarelto and continue with heparin drip Continue gentle hydration and sodium bicarb Plan for left BKA on Wednesday 12/13 Patient is on aspirin 81 mg which is on Several consultants on the case including ID team, data solutions architect, vascular surgery and assembler wet wash Labs and medication were reviewed.. Continue same treatment. Continue with symptomatic treatment. Resume home medication. Monitor labs and vitals. DVT and GI prophylaxis. Further recommendations as per clinical course of the patient DVT prophylaxis: heparin GI Prophylaxis: Pepcid PT/OT: Pending Prognosis is guarded
--- NOTE | 2023-12-12 11:05 | P.PN ---
Subjective Patient is seen in follow-up for acute kidney injury. Morning labs pending. Nonoliguric. Refused stress test this morning. Vital signs are stable. General: No acute distress. HEENT: Head exam is unremarkable.. LUNGS: No audible rhonchi or wheezes. HEART: Rate and Rhythm are regular. ABDOMEN: Nontender. EXTREMITITES: Left lower extremity wrapped. No edema. No drainage. Objective - Vital Signs Vital signs: Vital Signs Temp 98.7 F 12/12/23 09:00 Pulse 72 12/12/23 09:00 Resp 18 12/12/23 09:00 BP 120/61 12/12/23 09:00 Pulse Ox 95 12/12/23 09:00 FiO2 Intake & Output 12/11/23 12/12/23 12/12/23 18:59 06:59 18:59 Intake Total 373.97 250 236.029 Output Total 600 1275 Balance -226.03 -1025 236.029 Weight 90.718 kg Intake: Intake, IV Titration 133.97 250 236.029 Amount Heparin Sod,Pork in 0.45% 133.97 250 236.029 NaCl 25,000 unit In 0.45 % NaCl 1 250ml.bag @ 11. 023 UNITS/KG/HR 10 mls/hr IV .Q24H [facility] Rx#: [id number] Oral 240 Output: Urine 600 1275 Other: Voiding Method Indwelling Catheter Indwelling Catheter Indwelling Catheter # Bowel Movements 1 - Labs CBC & Chem 7: 12/11/23 06:15 12/11/23 06:15 Labs: Abnormal Lab Results - Last 24 Hours (Table) 12/11/23 12/12/23 Range/Units 14:50 09:18 APTT 58.7 H 74.6 H (22.0-30.0) sec Microbiology - Last 24 Hours (Table) 12/06/23 01:04 Blood Culture - Final Blood Assessment and Plan Plan: Assessment: 1. Acute kidney injury secondary to ATN secondary to vancomycin toxicity. Creatinine 4.01 yesterday. Baseline creatinine 0.75 from November 2023. UA with 1+ protein. No hydronephrosis noted on kidney ultrasound. 2. Peripheral arterial disease with left foot gangrene. Underwent femoropopliteal bypass in September 2023. Scheduled for below the knee amputation this Sunday. Vascular surgery and infectious disease following. 3. Chronic systolic CHF with ejection fraction of 40 to 45%. 4. Metabolic acidosis secondary to acute kidney injury. On oral bicarb. 5. Left kidney lesion. Patient will need to see urology outpatient. Plan: Maintain IV fluids. Continue to monitor renal function and urine output. Avoid nephrotoxins. Continue to assess daily for need for renal replacement therapy. No urgency at this time.
[2023-12-12 12:36] LABS: African American GFR (CKD) 19 (>60 ml/min/1.73 sqM); Anion Gap 6 mmol/L; Blood Urea Nitrogen 36 mg/dL (9-20); Calcium 7.4 mg/dL (8.4-10.2); Carbon Dioxide 13 mmol/L (22-30); Chloride 118 mmol/L (98-107); Glucose 74 mg/dL (74-99); Magnesium 1.9 mg/dL (1.6-2.3); Non-African American GFR(CKD) 17 (>60 ml/min/1.73 sqM); Sodium 137 mmol/L (137-145)
[2023-12-12 12:40] LABS: Potassium 3.9 mmol/L (3.5-5.1)
--- NOTE | 2023-12-12 14:19 | P.PN ---
Subjective Progress Note Date: 12/12/23 Principal diagnosis: Left lower extremity nonhealing wounds, gangrene foot Seen and examined today as a follow-up. He was supposed to go for Lexiscan stress test however patient states he was not going to be able to tolerate procedure. Still complains left lower extremity pain which is relieved when he hangs it over the bed. He did have a episode of bleeding from his bypass wound that was dehisced which nursing had to apply pressure to get it to stop. The tentatively shut off heparin drip to help control bleeding. Objective - Vital Signs Vital signs: Vital Signs Temp 98.7 F 12/12/23 09:00 Pulse 60 12/12/23 11:55 Resp 17 12/12/23 11:55 BP 105/58 12/12/23 11:55 Pulse Ox 100 12/12/23 11:55 FiO2 Intake & Output 12/11/23 12/12/23 12/12/23 18:59 06:59 18:59 Intake Total 373.97 250 523.358 Output Total 600 1275 Balance -226.03 -1025 523.358 Weight 90.718 kg Intake: Intake, IV Titration 133.97 250 301.358 Amount Heparin Sod,Pork in 0.45% 133.97 250 301.358 NaCl 25,000 unit In 0.45 % NaCl 1 250ml.bag @ 11. 023 UNITS/KG/HR 10 mls/hr IV .Q24H [facility] Rx#: [id number] Oral 240 222 Output: Urine 600 1275 Other: Voiding Method Indwelling Catheter Indwelling Catheter Indwelling Catheter # Bowel Movements 1 - Exam General appearance: The patient is alert, oriented, appears in no acute distress. HET: Head is normocephalic and atraumatic. Pupils are equal and reactive. Neck: Supple. Abdomen: Soft, nondistended. Extremities: Left lower extremity swelling. Left lower extremity incision on thigh well-healed. Calf bypass incision that is dehisced with area of bleeding from edge of wound bed. Nonpulsatile. Improved with pressure. Gangrene foot, tendon exposure. Neurological: No focal deficits. - Labs CBC & Chem 7: 12/11/23 06:15 12/12/23 09:18 Labs: Abnormal Lab Results - Last 24 Hours (Table) 12/11/23 12/12/23 12/12/23 Range/Units 14:50 09:18 09:18 APTT 58.7 H 74.6 H (22.0-30.0) sec Chloride 118 H (98-107) mmol/L Carbon Dioxide 13 L (22-30) mmol/L BUN 36 H (9-20) mg/dL Creatinine 3.71 H (0.66-1.25) mg/dL Calcium 7.4 L (8.4-10.2) mg/dL Microbiology - Last 24 Hours (Table) 12/06/23 01:04 Blood Culture - Final Blood Assessment and Plan Assessment: 1. Gangrene left foot 2. History of peripheral arterial disease with critical limb ischemia of the left lower extremity status post left common femoral endarterectomy and femoral to below-knee popliteal bypass 3. Nonhealing left lower extremity wounds 4. Altered mental status changes 5. Leukocytosis 6. Fever 7. Recent wound culture with MRSA and Pseudomonas on outpatient IV antibiotics 8. Acute renal failure 9. Chest pain Plan: 1. Continue local wound care. Apply wet-to-dry dressing with pressure to left calf wound. 2. Continue recommendations from infectious disease 3. Continue with recommendations from cardiology, await cardiac clearance 4. Rest of medical management per primary medical team 5. Patient is tentatively scheduled for left below the knee amputation Sunday 6. Will need to hold heparin 6 hours prior to surgery 7. Encourage patient to get up into chair 8. Physical therapy and Occupational Therapy on consult 9. Nephrology consulted for acute kidney injury Thank you for this consultation, we will continue to follow. The impression and plan of care has been dictated as directed. Dr. Stearns I performed a history and examination of this patient, discussed the same with the dictator. I agree with the dictator's note ,documented as a scribe. Any additional findings or plans will be noted.
[2023-12-12] MEDS ORDERED: AMINOPHYLLINE 500 MG/20 ML VIAL IV PRN (14:32)
[2023-12-12] MEDS ORDERED: CAFFEINE CITRATE 60 MG/3 ML VIAL IV PRN (14:32)
--- NOTE | 2023-12-12 14:34 | P.PN ---
Subjective Progress Note Date: 12/12/23 PAD The patient is a 58-year-old gentleman with a past medical history significant for cardiomyopathy with a EF between 40 to 45% as well as hypertension and dyslipidemia and anemia and chronic kidney disease who was admitted to the hospital with acute renal failure secondary to vancomycin toxicity causing acute renal failure. We consulted to see the patient because of abnormal cardiac enzymes and mildly abnormal troponin which we felt secondary to nephropathy. December 10, 2023 The patient was seen and evaluated this morning. He is asymptomatic. He is hemodynamically stable. The EKG showed no ischemic changes. The echo was the same as before. Currently he is on heparin for the PAD and acute limb ischemia. No need for heparin from the cardiac standpoint of view. The examination is remarkable for regular rhythm with clear breathing sounds bilaterally and no edema was noted in the right lower extremity 12/10 This morning, patient states he had an episode of a twinge in his chest and the left upper area. It started after he felt a pain from his foot that went up his leg. It is completely gone now. EKG shows changes from prior. Chest wall is nontender. Patient is on a heparin drip with plan for BKA on Sunday. Blood pressure 104/57, heart rate 60, pulse ox 94% on room air. Examination reveals regular rhythm, clear lung sounds, no edema. Dressing in place to the left lower extremity. 12/11 Patient was scheduled for Lexiscan stress test this morning but he refused once he arrived to the unit. He was not able to tolerate having his leg on the stretcher and due to pain it was canceled. There was also concern for him lying flat for imaging. After vascular discussed in detail with the patient the need for the stress test, patient is agreeable to try. Will plan for patient to be premedicated before stress test. Blood pressure 120/61, heart rate 72, pulse ox 95% on room air. Patient has had no further episodes of chest pain. Assessment Acute renal failure Chronic anemia Rule out coronary artery disease Lower extremities PAD, scheduled for BKA Sunday Cardiomyopathy Plan Continue the current medical regimen Schedule patient for Lexiscan stress test tomorrow Follow-up with the patient Nurse practitioner note has been reviewed, I agree with documented findings and plan of care. Patient was seen and examined. Objective - Vital Signs Vital signs: Vital Signs Temp 97.7 F 12/12/23 04:00 Pulse 76 12/12/23 04:00 Resp 18 12/12/23 04:00 BP 133/75 12/12/23 04:00 Pulse Ox 94 L 12/12/23 04:00 FiO2 Intake & Output 12/11/23 12/12/23 12/12/23 18:59 06:59 18:59 Intake Total 373.97 250 Output Total 600 1275 Balance -226.03 -1025 Weight 90.718 kg Intake: Intake, IV Titration 133.97 250 Amount Heparin Sod,Pork in 0.45% 133.97 250 NaCl 25,000 unit In 0.45 % NaCl 1 250ml.bag @ 11. 023 UNITS/KG/HR 10 mls/hr IV .Q24H [facility] Rx#: [id number] Oral 240 Output: Urine 600 1275 Other: Voiding Method Indwelling Catheter Indwelling Catheter # Bowel Movements 1 - Labs CBC & Chem 7: 12/11/23 06:15 12/12/23 09:18 Labs: Abnormal Lab Results - Last 24 Hours (Table) 12/11/23 Range/Units 14:50 APTT 58.7 H (22.0-30.0) sec Microbiology - Last 24 Hours (Table) 12/06/23 01:04 Blood Culture - Final Blood
[2023-12-12] MEDS: DEXTROSE 5% IN WATER 1,000 ML with SODIUM BICARB (1 MEQ/ML) 150 ML IV SCH (15:30)
[2023-12-13] MEDS ORDERED: REGADENOSON 0.4 MG/5 ML SYRINGE IV PRN (06:00)
--- NOTE | 2023-12-13 07:21 | P.PN ---
Subjective This is a pleasant 58 years old male with past medical history of multiple medical problems, he was transferred from [facility] for altered mental status. He is a known case of left leg cellulitis and wounds secondary to MRSA. Patient was on IV vancomycin. Also patient was evidence of acute kidney injury with creatinine went up from 2.1 on admission today is 4.01. Baseline is around 0.7. Has been followed closely by miter cutter and he was started on gentle hydration and sodium bicarb pills Renal ultrasound showing possible solid lytic lesion on the left kidney 3.4 x 2.6 x 2.9 cm Patient was shown to have peripheral vascular disease with chronic critical left lower extremity ischemia s/p left common femoral and endarterectomy and left femoral-popliteal bypass Vital signs stable and patient is afebrile Labs reviewed and look stable Hemoglobin is 9.5 Creatinine 4.01 12/12/2023 Patient is awake and alert pt Is going for stress test today and scheduled for Sunday for left BKA as he explains to me as well Patient was informed about his left kidney lucency suspicious for kidney mass and he wrote it down as a reminder for himself He looks comfortable and denies any other new complaints 12/13/2023 Patient is resting in bed comfortable. No significant pain. No dyspnea. He is planned for left lower extremity BKA. Plan for Lexiscan stress test today for preop evaluation Also patient with acute kidney injury secondary to vancomycin toxicity. Creatinine is trending down to 4.1-3.7 from yesterday He is still on normal saline 75 mL/h with sodium bicarb tablets. Also patient with left kidney lytic lesion suspicious for a mass patient is aware. Xarelto remains on hold, currently he is on heparin drip. Objective - Vital Signs Vital signs: Vital Signs Temp 98 F 12/13/23 04:00 Pulse 80 12/13/23 04:00 Resp 16 12/13/23 04:00 BP 141/62 12/13/23 04:00 Pulse Ox 98 12/13/23 04:00 FiO2 Intake & Output 12/12/23 12/13/23 12/13/23 18:59 06:59 18:59 Intake Total 523.358 304.671 Output Total 1000 1200 Balance -476.642 -895.329 Intake: Intake, IV Titration 301.358 184.671 Amount Heparin Sod,Pork in 0.45% 301.358 184.671 NaCl 25,000 unit In 0.45 % NaCl 1 250ml.bag @ 11. 023 UNITS/KG/HR 10 mls/hr IV .Q24H [facility] Rx#: [id number] Oral 222 120 Output: Urine 1000 1200 Other: Voiding Method Indwelling Catheter Indwelling Catheter - Exam GENERAL: The patient is alert and oriented x3, not in any acute distress. Well developed, well nourished. HEENT: Pupils are round and equally reacting to light. EOMI. No scleral icterus. No conjunctival pallor. Normocephalic, atraumatic. No pharyngeal erythema. No thyromegaly. CARDIOVASCULAR: S1 and S2 present. No murmurs, rubs, or gallops. PULMONARY: Chest is clear to auscultation, no wheezing , no crackles. ABDOMEN: Soft, nontender, nondistended, normoactive bowel sounds. No palpable organomegaly. MUSCULOSKELETAL: No joint swelling or deformity. -EXTREMITIES: No cyanosis, clubbing, or pedal edema. Left lower extremity cellulitis, and gangrene, with dressing in place NEUROLOGICAL: Gross neurological examination did not reveal any focal deficits. SKIN: No rashes. no petechiae. - Labs CBC & Chem 7: 12/11/23 06:15 12/12/23 09:18 Labs: Abnormal Lab Results - Last 24 Hours (Table) 12/12/23 12/12/23 Range/Units 09:18 09:18 APTT 74.6 H (22.0-30.0) sec Chloride 118 H (98-107) mmol/L Carbon Dioxide 13 L (22-30) mmol/L BUN 36 H (9-20) mg/dL Creatinine 3.71 H (0.66-1.25) mg/dL Calcium 7.4 L (8.4-10.2) mg/dL Assessment and Plan Assessment: Left lower extremity cellulitis and wound infection and gangrene secondary to ischemic peripheral artery disease. Plan for BKA on Sunday peripheral vascular disease with chronic critical left lower extremity ischemia s/p left common femoral and endarterectomy and left femoral-popliteal bypass Acute kidney injury Left kidney lucency suspicious for kidney mass Metabolic encephalopathy improving left kidney lytic lesion 3.4 x 2.6 x 2.9 cm Acute metabolic acidemia COPD no exacerbation Nicotine dependence Anxiety and depression, not an active issue Plan: Stress test per cardiology team Discontinue IV vancomycin Continue with antibiotic as per ID team , currently on IV cefepime Follow-up culture result Hold Xarelto and continue with heparin drip Continue gentle hydration and sodium bicarb Plan for left BKA on Wednesday 12/13 Patient is on aspirin 81 mg which is on Several consultants on the case including ID team, miter cutter, vascular surgery and postal service sectional center manager Labs and medication were reviewed.. Continue same treatment. Continue with symptomatic treatment. Resume home medication. Monitor labs and vitals. DVT and GI prophylaxis. Further recommendations as per clinical course of the patient DVT prophylaxis: heparin GI Prophylaxis: Pepcid PT/OT: Pending Prognosis is guarded
[2023-12-13 09:03] LABS: African American GFR (CKD) 17 (>60 ml/min/1.73 sqM); Anion Gap 7 mmol/L; Blood Urea Nitrogen 38 mg/dL (9-20); Calcium 8.1 mg/dL (8.4-10.2); Carbon Dioxide 23 mmol/L (22-30); Chloride 108 mmol/L (98-107); Glucose 120 mg/dL (74-99); Magnesium 2.1 mg/dL (1.6-2.3); Non-African American GFR(CKD) 15 (>60 ml/min/1.73 sqM); Potassium 4.3 mmol/L (3.5-5.1); Sodium 138 mmol/L (137-145)
--- NOTE | 2023-12-13 12:00 | P.PN ---
Subjective Patient is seen in follow-up for acute kidney injury. Renal function worse with creatinine 4.1. Underwent stress test this morning. Receiving IV fluids. Acidosis improved. Nonoliguric. Scheduled for amputation tomorrow. Vital signs are stable. General: No acute distress. HEENT: Head exam is unremarkable.. LUNGS: No audible rhonchi or wheezes. HEART: Rate and Rhythm are regular. ABDOMEN: Nontender. EXTREMITITES: Left lower extremity wrapped. No edema. No drainage. Objective - Vital Signs Vital signs: Vital Signs Temp 97.4 F L 12/13/23 08:11 Pulse 79 12/13/23 08:11 Resp 20 12/13/23 08:11 BP 122/60 12/13/23 08:11 Pulse Ox 92 L 12/13/23 08:11 FiO2 Intake & Output 12/12/23 12/13/23 12/13/23 18:59 06:59 18:59 Intake Total 523.358 304.671 208.632 Output Total 1000 1200 Balance -476.642 -895.329 208.632 Intake: Intake, IV Titration 301.358 184.671 208.632 Amount Heparin Sod,Pork in 0.45% 301.358 184.671 208.632 NaCl 25,000 unit In 0.45 % NaCl 1 250ml.bag @ 11. 023 UNITS/KG/HR 10 mls/hr IV .Q24H [facility] Rx#: [id number] Oral 222 120 Output: Urine 1000 1200 Other: Voiding Method Indwelling Catheter Indwelling Catheter Indwelling Catheter - Labs CBC & Chem 7: 12/11/23 06:15 12/13/23 07:11 Labs: Abnormal Lab Results - Last 24 Hours (Table) 12/12/23 12/13/23 12/13/23 Range/Units 09:18 07:11 07:11 APTT 64.4 H (22.0-30.0) sec Chloride 118 H 108 H (98-107) mmol/L Carbon Dioxide 13 L (22-30) mmol/L BUN 36 H 38 H (9-20) mg/dL Creatinine 3.71 H 4.15 H (0.66-1.25) mg/dL Glucose 120 H (74-99) mg/dL Calcium 7.4 L 8.1 L (8.4-10.2) mg/dL Assessment and Plan Plan: Assessment: 1. Acute kidney injury secondary to ATN secondary to vancomycin toxicity. Creatinine 4.15 today. Baseline creatinine 0.75 from November 2023. UA with 1+ protein. No hydronephrosis noted on kidney ultrasound. 2. Peripheral arterial disease with left foot gangrene. Underwent femoropopliteal bypass in September 2023. Scheduled for below the knee amputation this Sunday. Vascular surgery and infectious disease following. 3. Chronic systolic CHF with ejection fraction of 40 to 45%. 4. Metabolic acidosis secondary to acute kidney injury. Status post bicarb drip. On oral bicarb. Improved. 5. Left kidney lesion. Patient will need to see urology outpatient. Plan: Change fluids back to normal saline. Continue to monitor renal function and urine output. Avoid nephrotoxins. Continue to assess daily for need for renal replacement therapy. No urgency at this time.
[2023-12-13] MEDS: SODIUM CHLORIDE 0.9% 1,000 ML IV SCH (12:05)
--- NOTE | 2023-12-13 12:09 | CA ---
Lexiscan Nuclear Stress Test Report Name: Star Alas Exam Date: 12/13/2023 10:38 Exam Location: [place] Stress Ht (in): 75 Wt (lb): 200 BSA: 2.19 Ordering Phys: Gala Saldana Referring Phys: GALA SALDANA Technologist: MANE Age: 58 Gender: M : 1965 Procedure CPT: Indications: Reflex order-Stress test ICD-10 Codes: Patient History: Pre-op Medications: Meds past 24 hrs: Pretest Chest Pain: STRESS TEST Lexiscan Protocol Exercise Duration (min:sec): 02:[address] Depressions (mm): Angina Score: Chavarria Score: Resting HR (bpm): 58 Peak HR (bpm): 66 Resting BP (mmHg): 124 / 63 Peak BP (mmHg): 106 / 60 MPHR: 160 Target HR: 136 % MPHR: 41 METS: 1.0 Total Dose: Peak Dose: Atropine: Double Product: 6996 BP Response: Stress Termination: Infusion complete Stress Symptoms: No chest pain or symptoms Stress Summary: ECG ANALYSIS Resting ECG: Normal sinus rhythm with nonspecific ST-T wave change Stress ECG: Patient was given intravenous Lexiscan as a protocol did not have chest pain or diagnostic ST segment depression CONCLUSIONS Negative stress test by EKG criteria Cardial lead portion of the stress test will be reported separate Dr. Nathan Verdin MD (Electronically Signed) Final Date: 13 December 2023 12:09
--- NOTE | 2023-12-13 13:13 | NM ---
EXAMINATION TYPE: NM stress Lexiscan cardiolite DATE OF EXAM: 12/13/2023 COMPARISON: NONE CLINICAL INDICATION: Male, 58 years old with history of chest pain; TECHNIQUE: After the intravenous administration of 9.6 mCi Tc 99m Sestamibi - Cardiolite resting SPE CT images acquired 105 minutes post injection. The patient received 0.4mg Lexiscan, 25.3 mCi Tc 99m Sestamibi - Stress images obtained [address] injection FINDINGS: Review of stress and rest SPECT images demonstrates no distinct perfusion abnormality. Gated analysi s shows normal wall motion with an estimated left ventricular ejection fraction of 48 %. Wall motion is grossly within normal limits. Normal ejection fraction is considered to be 50%. Patien t's ejection fraction: 48%. So, therefore, only slightly below. IMPRESSION: No scintigraphic evidence for reversible ischemia.
--- NOTE | 2023-12-13 14:10 | P.PN ---
Subjective Progress Note Date: 12/13/23 PAD The patient is a 58-year-old gentleman with a past medical history significant for cardiomyopathy with a EF between 40 to 45% as well as hypertension and dyslipidemia and anemia and chronic kidney disease who was admitted to the hospital with acute renal failure secondary to vancomycin toxicity causing acute renal failure. We consulted to see the patient because of abnormal cardiac enzymes and mildly abnormal troponin which we felt secondary to nephropathy. December 10, 2023 The patient was seen and evaluated this morning. He is asymptomatic. He is hemodynamically stable. The EKG showed no ischemic changes. The echo was the same as before. Currently he is on heparin for the PAD and acute limb ischemia. No need for heparin from the cardiac standpoint of view. The examination is remarkable for regular rhythm with clear breathing sounds bilaterally and no edema was noted in the right lower extremity 12/10 This morning, patient states he had an episode of a twinge in his chest and the left upper area. It started after he felt a pain from his foot that went up his leg. It is completely gone now. EKG shows changes from prior. Chest wall is nontender. Patient is on a heparin drip with plan for BKA on Sunday. Blood pressure 104/57, heart rate 60, pulse ox 94% on room air. Examination reveals regular rhythm, clear lung sounds, no edema. Dressing in place to the left lower extremity. 12/11 Patient was scheduled for Lexiscan stress test this morning but he refused once he arrived to the unit. He was not able to tolerate having his leg on the stretcher and due to pain it was canceled. There was also concern for him lying flat for imaging. After vascular discussed in detail with the patient the need for the stress test, patient is agreeable to try. Will plan for patient to be premedicated before stress test. Blood pressure 120/61, heart rate 72, pulse ox 95% on room air. Patient has had no further episodes of chest pain.Examination reveals regular rhythm, clear lung sounds, no edema. Dressing in place to the left lower extremity. 12/12 Patient underwent Elsa stress test today which revealed no evidence of reversible ischemia. Blood pressure 108/58, heart rate 61, pulse ox 98% on room air. Repeat blood work reveals BUN 38 creatinine 4.15. Assessment Acute renal failure Chronic anemia Rule out coronary artery disease Lower extremities PAD, scheduled for BKA Sunday Cardiomyopathy Plan Continue the current medical regimen Patient is at acceptable risk for cardiac complications during the perioperative period. Follow-up with the patient Nurse practitioner note has been reviewed, I agree with documented findings and plan of care. Patient was seen and examined. Objective - Vital Signs Vital signs: Vital Signs Temp 98 F 12/13/23 04:00 Pulse 80 12/13/23 04:00 Resp 16 12/13/23 04:00 BP 141/62 12/13/23 04:00 Pulse Ox 98 12/13/23 04:00 FiO2 Intake & Output 12/12/23 12/13/23 12/13/23 18:59 06:59 18:59 Intake Total 523.358 304.671 Output Total 1000 1200 Balance -476.642 -895.329 Intake: Intake, IV Titration 301.358 184.671 Amount Heparin Sod,Pork in 0.45% 301.358 184.671 NaCl 25,000 unit In 0.45 % NaCl 1 250ml.bag @ 11. 023 UNITS/KG/HR 10 mls/hr IV .Q24H [facility] Rx#: [id number] Oral 222 120 Output: Urine 1000 1200 Other: Voiding Method Indwelling Catheter Indwelling Catheter - Labs CBC & Chem 7: 12/11/23 06:15 12/13/23 07:11 Labs: Abnormal Lab Results - Last 24 Hours (Table) 12/12/23 12/12/23 Range/Units 09:18 09:18 APTT 74.6 H (22.0-30.0) sec Chloride 118 H (98-107) mmol/L Carbon Dioxide 13 L (22-30) mmol/L BUN 36 H (9-20) mg/dL Creatinine 3.71 H (0.66-1.25) mg/dL Calcium 7.4 L (8.4-10.2) mg/dL
--- NOTE | 2023-12-13 15:32 | P.PN ---
Subjective Progress Note Date: 12/13/23 Principal diagnosis: Left lower extremity nonhealing wounds, gangrene foot Patient seen and examined today as a follow-up. No acute changes through the night. He states he is doing well this morning. Denies any chest pain or shortness of breath. Scheduled to undergo Lexiscan stress test. Objective - Vital Signs Vital signs: Vital Signs Temp 97.4 F L 12/13/23 08:11 Pulse 79 12/13/23 08:11 Resp 20 12/13/23 08:11 BP 122/60 12/13/23 08:11 Pulse Ox 92 L 12/13/23 08:11 FiO2 Intake & Output 12/12/23 12/13/23 12/13/23 18:59 06:59 18:59 Intake Total 523.358 304.671 195.988 Output Total 1000 1200 Balance -476.642 -895.329 195.988 Intake: Intake, IV Titration 301.358 184.671 195.988 Amount Heparin Sod,Pork in 0.45% 301.358 184.671 195.988 NaCl 25,000 unit In 0.45 % NaCl 1 250ml.bag @ 11. 023 UNITS/KG/HR 10 mls/hr IV .Q24H [facility] Rx#: [id number] Oral 222 120 Output: Urine 1000 1200 Other: Voiding Method Indwelling Catheter Indwelling Catheter - Exam General appearance: The patient is alert, oriented, appears in no acute distress. HET: Head is normocephalic and atraumatic. Pupils are equal and reactive. Neck: Supple. Abdomen: Soft, nondistended. Extremities: Left lower extremity swelling. Dressing clean dry and intact.. Neurological: No focal deficits. - Labs CBC & Chem 7: 12/11/23 06:15 12/13/23 07:11 Labs: Abnormal Lab Results - Last 24 Hours (Table) 12/12/23 12/12/23 12/13/23 Range/Units 09:18 09:18 07:11 APTT 74.6 H 64.4 H (22.0-30.0) sec Chloride 118 H (98-107) mmol/L Carbon Dioxide 13 L (22-30) mmol/L BUN 36 H (9-20) mg/dL Creatinine 3.71 H (0.66-1.25) mg/dL Glucose (74-99) mg/dL Calcium 7.4 L (8.4-10.2) mg/dL 12/13/23 Range/Units 07:11 APTT (22.0-30.0) sec Chloride 108 H (98-107) mmol/L Carbon Dioxide (22-30) mmol/L BUN 38 H (9-20) mg/dL Creatinine 4.15 H (0.66-1.25) mg/dL Glucose 120 H (74-99) mg/dL Calcium 8.1 L (8.4-10.2) mg/dL Assessment and Plan Assessment: 1. Gangrene left foot 2. History of peripheral arterial disease with critical limb ischemia of the left lower extremity status post left common femoral endarterectomy and femoral to below-knee popliteal bypass 3. Nonhealing left lower extremity wounds 4. Altered mental status changes 5. Leukocytosis 6. Fever 7. Recent wound culture with MRSA and Pseudomonas on outpatient IV antibiotics 8. Acute renal failure 9. Chest pain Plan: 1. Continue local wound care. Apply wet-to-dry dressing with pressure to left calf wound. 2. Continue recommendations from infectious disease 3. Patient has been seen by cardiology and underwent Lexiscan stress test. Cardiology states patient is at acceptable risk for cardiac complications during perioperative period. 4. Rest of medical management per primary medical team 5. Patient is scheduled for left below the knee amputation tomorrow 6. Will need to hold heparin 6 hours prior to surgery 7. Encourage patient to get up into chair 8. Physical therapy and Occupational Therapy on consult 9. Nephrology consulted for acute kidney injury, continue with their recommendations 10. Need current type and screen 11. N.p.o. after midnight Thank you for this consultation, we will continue to follow. The impression and plan of care has been dictated as directed. Dr. Robin I performed a history and examination of this patient, discussed the same with the dictator. I agree with the dictator's note ,documented as a scribe. Any additional findings or plans will be noted.
--- NOTE | 2023-12-13 15:57 | P.PN ---
Subjective Progress Note Date: 12/12/23 Principal diagnosis: Reason for follow-up is sepsis and left lower extremity cellulitis Patient is a 58-year-old male with a past medical history significant for COPD also with a history of PAD with recent multiple admission to the hospital with necrotic left foot requiring revascularization recently did have a wound infection culture positive for MRSA and Pseudomonas patient did get a PICC line and was receiving IV vancomycin and cefepime at the residential presented to the hospital mental status changes elevated vancomycin trough and creatinine. On today's evaluation that is 12/12/2023, the patient continues to be afebrile, the patient is on room air and breathing comfortably, the Pt denies having any chest pain or cough, the patient denies having any abdominal pain no vomiting or any diarrhea denies any worsening pain to the left lower extremity Patient did have a creatinine of 3.71 Objective - Vital Signs Vital signs: Vital Signs Temp 98.7 F 12/12/23 09:00 Pulse 60 12/12/23 11:55 Resp 17 12/12/23 11:55 BP 105/58 12/12/23 11:55 Pulse Ox 100 12/12/23 11:55 FiO2 Intake & Output 12/11/23 12/12/23 12/12/23 18:59 06:59 18:59 Intake Total 373.97 250 523.358 Output Total 600 1275 Balance -226.03 -1025 523.358 Weight 90.718 kg Intake: Intake, IV Titration 133.97 250 301.358 Amount Heparin Sod,Pork in 0.45% 133.97 250 301.358 NaCl 25,000 unit In 0.45 % NaCl 1 250ml.bag @ 11. 023 UNITS/KG/HR 10 mls/hr IV .Q24H [facility] Rx#: [id number] Oral 240 222 Output: Urine 600 1275 Other: Voiding Method Indwelling Catheter Indwelling Catheter Indwelling Catheter # Bowel Movements 1 - Exam GENERAL DESCRIPTION: Middle-age male lying in bed in no distress RESPIRATORY SYSTEM: Unlabored breathing , decreased breath sounds at bases HEART: S1 S2 regular rate and rhythm , ABDOMEN: Soft , no tenderness EXTREMITIES: left leg is currently dressed minimal drainage on the dressing - Labs CBC & Chem 7: 12/11/23 06:15 12/13/23 07:11 Labs: Abnormal Lab Results - Last 24 Hours (Table) 12/11/23 12/12/23 12/12/23 Range/Units 14:50 09:18 09:18 APTT 58.7 H 74.6 H (22.0-30.0) sec Chloride 118 H (98-107) mmol/L Carbon Dioxide 13 L (22-30) mmol/L BUN 36 H (9-20) mg/dL Creatinine 3.71 H (0.66-1.25) mg/dL Calcium 7.4 L (8.4-10.2) mg/dL Microbiology - Last 24 Hours (Table) 12/06/23 01:04 Blood Culture - Final Blood Assessment and Plan (1) Leukocytosis Current Visit: Yes Status: Acute Code(s): D72.829 - ELEVATED WHITE BLOOD CELL COUNT, UNSPECIFIED SNOMED Code(s): 090519187 (2) Cellulitis of left leg Current Visit: No Status: Acute Code(s): L03.116 - CELLULITIS OF LEFT LOWER LIMB SNOMED Code(s): 90749689710347317 (3) Infected wound Current Visit: No Status: Acute Code(s): T14.8XXA - OTHER INJURY OF UNSPECIFIED BODY REGION, INITIAL ENCOUNTER; L08.9 - LOCAL INFECTION OF THE SKIN AND SUBCUTANEOUS TISSUE, UNSP SNOMED Code(s): 73231022 Plan: 1patient with a chronic nonhealing wound to the left lower extremity in this patient who did have significant PAD requiring revascularization surgery now with more necrotic left foot wound left lower extremity and cellulitis with a previous culture positive for MRSA and Pseudomonas 2-patient is currently waiting for cardiac workup before undergoing possible amputation, the patient will continue with daptomycin and cefepime and monitor clinical course closely Dictation was produced using [employer] software. please excuse any grammatical, word or spelling errors. Time with Patient: Less than 30
--- NOTE | 2023-12-13 15:58 | P.PN ---
Subjective Progress Note Date: 12/13/23 Principal diagnosis: Reason for follow-up is sepsis and left lower extremity cellulitis Patient is a 58-year-old male with a past medical history significant for COPD also with a history of PAD with recent multiple admission to the hospital with necrotic left foot requiring revascularization recently did have a wound infection culture positive for MRSA and Pseudomonas patient did get a PICC line and was receiving IV vancomycin and cefepime at the snf presented to the hospital mental status changes elevated vancomycin trough and creatinine. On today's evaluation that is 12/13/2023, Patient is afebrile patient is currently on room air and denies having any shortness of breath, the patient denies any chest pain or cough, the patient denies any nausea vomiting did not have any abdominal pain and no diarrhea, he seem to have a problem with the bleeding from the left leg yesterday seen have been controlled with no bleeding this morning and denies any worsening pain to the left leg Patient creatinine is up to 4.15, P did have a stress test this morning that was negative for any ischemia Objective - Vital Signs Vital signs: Vital Signs Temp 97.4 F L 12/13/23 08:11 Pulse 61 12/13/23 12:01 Resp 20 12/13/23 12:01 BP 108/58 12/13/23 12:01 Pulse Ox 98 12/13/23 12:01 FiO2 Intake & Output 12/12/23 12/13/23 12/13/23 18:59 06:59 18:59 Intake Total 523.358 304.671 308.632 Output Total 1000 1200 625 Balance -476.642 -895.329 -316.368 Intake: Intake, IV Titration 301.358 184.671 208.632 Amount Heparin Sod,Pork in 0.45% 301.358 184.671 208.632 NaCl 25,000 unit In 0.45 % NaCl 1 250ml.bag @ 11. 023 UNITS/KG/HR 10 mls/hr IV .Q24H [facility] Rx#: [id number] Oral 222 120 100 Output: Urine 1000 1200 625 Other: Voiding Method Indwelling Catheter Indwelling Catheter Indwelling Catheter - Exam GENERAL DESCRIPTION: Middle-age male lying in bed in no distress RESPIRATORY SYSTEM: Unlabored breathing , decreased breath sounds at bases HEART: S1 S2 regular rate and rhythm , ABDOMEN: Soft , no tenderness EXTREMITIES: left leg is currently dressed minimal drainage on the dressing - Labs CBC & Chem 7: 12/11/23 06:15 12/13/23 07:11 Labs: Abnormal Lab Results - Last 24 Hours (Table) 12/13/23 12/13/23 Range/Units 07:11 07:11 APTT 64.4 H (22.0-30.0) sec Chloride 108 H (98-107) mmol/L BUN 38 H (9-20) mg/dL Creatinine 4.15 H (0.66-1.25) mg/dL Glucose 120 H (74-99) mg/dL Calcium 8.1 L (8.4-10.2) mg/dL Assessment and Plan (1) Leukocytosis Current Visit: Yes Status: Acute Code(s): D72.829 - ELEVATED WHITE BLOOD CELL COUNT, UNSPECIFIED SNOMED Code(s): 835520454 (2) Cellulitis of left leg Current Visit: No Status: Acute Code(s): L03.116 - CELLULITIS OF LEFT LOWER LIMB SNOMED Code(s): 95993431599610856 (3) Infected wound Current Visit: No Status: Acute Code(s): T14.8XXA - OTHER INJURY OF UNSPECIFIED BODY REGION, INITIAL ENCOUNTER; L08.9 - LOCAL INFECTION OF THE SKIN AND SUBCUTANEOUS TISSUE, UNSP SNOMED Code(s): 61737068 Plan: 1patient with a chronic nonhealing wound to the left lower extremity in this patient who did have significant PAD requiring revascularization surgery now with more necrotic left foot wound left lower extremity and cellulitis with a previous culture positive for MRSA and Pseudomonas 2-patient did have a negative stress test this morning and is scheduled for left below the knee potation, we will keep the patient on daptomycin and cefepime however will not need any IV antibiotic on discharge Mother at the bedside questions were answered Dictation was produced using [employer]) dictation software. please excuse any grammatical, word or spelling errors. Time with Patient: Less than 30
--- NOTE | 2023-12-13 18:44 | P.GSCN ---
History of Present Illness Consult date: 12/13/23 Reason for Consult: Left renal mass History of present illness: This is a 58-year-old male mid to the hospital with acute encephalopathy and ac [place] kidney injury. Urology is consulted for incidental finding of a 3.4 cm left-sided renal mass on ultrasound. Patient denies any flank pain or gross hematuria. No known history of renal or bladder malignancy. No family history of malignancy. Ultrasound was done to evaluate patient's acute kidney injury, his current creatinine is 4.15 his baseline is 0.7 Past Medical History Past Medical History: COPD, Vascular Disorder Additional Past Medical History / Comment(s): PVD, DVT R leg-recent R femoral popliteal bypass at [facility] 02/22/17, History of Any Multi-Drug Resistant Organisms: MRSA Year Discovered:: 11/06/23 MRSA MDRO Source:: Left Leg Past Surgical History: Orthopedic Surgery Additional Past Surgical History / Comment(s): R fem pop bypass 02/22/17 [facility], bilateral knee arthroscopic surgeries. Past Anesthesia/Blood Transfusion Reactions: No Reported Reaction Additional Past Anesthesia/Blood Transfusion Reaction / Comm: Pt is currently receiving blood-no reaction at this time. Past Psychological History: Anxiety, Depression Smoking Status: Current every day smoker Past Alcohol Use History: Daily, Heavy Past Drug Use History: None Reported - Past Family History Mother Family Medical History: Cancer, Hyperlipidemia Additional Family Medical History / Comment(s): Mother had skin cancer. She is living. Father Family Medical History: Hyperlipidemia, Hypertension Additional Family Medical History / Comment(s): Father has heart condition. Medications and Allergies Home Medications Medication Instructions Recorded Confirmed Type Atorvastatin [Lipitor] 40 mg PO HS tab 09/10/23 12/05/23 Rx Mirtazapine [Remeron] 15 mg PO HS tab 09/10/23 12/05/23 Rx Thiamine [Vitamin B-1] 100 mg PO DAILY #30 tab 09/19/23 12/05/23 Rx Acetaminophen [Tylenol Arthritis] 650 mg PO Q6H PRN 11/05/23 12/05/23 History Citalopram Hydrobromide [CeleXA] 40 mg PO HS 11/05/23 12/05/23 History Famotidine [Pepcid] 10 mg PO DAILY 11/05/23 12/05/23 History Magnesium Oxide [Mag-Ox] 400 mg PO DAILY 11/05/23 12/05/23 History Naloxone HCl [Narcan] 4 mg NASAL ONCE PRN 11/05/23 12/05/23 History Naloxone [Narcan] 0.4 mg IM ONCE PRN 11/05/23 12/05/23 History Gabapentin [Neurontin] 600 mg PO TID@0700,1300,1900 #30 11/08/23 12/05/23 Rx cap Metoprolol Succinate (ER) [Toprol 25 mg PO DAILY 11/22/23 12/05/23 History Xl] Rivaroxaban [Xarelto] 2.5 mg PO BID@0700,1900 11/22/23 12/05/23 History Tamsulosin [Flomax] 0.4 mg PO DAILY 11/22/23 12/05/23 History Vancomycin 1,500 mg IVPB BID@0900,2100 11/22/23 12/05/23 History oxyCODONE-APAP 7.5-325MG [Percocet 1 tab PO Q4H 11/22/23 12/05/23 History 7.5-325 mg] oxyCODONE-APAP 7.5-325MG [Percocet 1 tab PO Q4HR PRN 11/22/23 12/05/23 History 7.5-325 mg] Ascorbic Acid [Vitamin C] 500 mg PO DAILY 12/05/23 12/05/23 History Aspirin EC [Ecotrin Low Dose] 81 mg PO DAILY 12/05/23 12/05/23 History Calcium Carbonate/Vitamin D3 1 tab PO DAILY 12/05/23 12/05/23 History [Calcium 600 mg-Vit D3 5 mcg (200 unit)] Allergies Allergy/AdvReac Type Severity Reaction Status Date / Time No Known Allergies Allergy Verified 12/05/23 12:31 Surgical - Exam Vital Signs Temp Pulse BP Pulse Ox 98.0 F 72 92/56 100 12/05/23 11:59 12/05/23 11:59 12/05/23 11:59 12/05/23 11:59 - General no distress, no pain - Eyes normal ocular movement, no pale - ENT normal nares, normal mucosa - Respiratory normal expansion, normal respiratory effort - Abdomen Abdomen: soft, non tender Results - Labs 12/11/23 06:15 12/13/23 07:11 Abnormal Lab Results - Last 24 Hours (Table) 12/13/23 12/13/23 Range/Units 07:11 07:11 APTT 64.4 H (22.0-30.0) sec Chloride 108 H (98-107) mmol/L BUN 38 H (9-20) mg/dL Creatinine 4.15 H (0.66-1.25) mg/dL Glucose 120 H (74-99) mg/dL Calcium 8.1 L (8.4-10.2) mg/dL Diabetes panel 12/13/23 Range/Units 07:11 Sodium 138 (137-145) mmol/L Potassium 4.3 (3.5-5.1) mmol/L Chloride 108 H (98-107) mmol/L Carbon Dioxide 23 (22-30) mmol/L BUN 38 H (9-20) mg/dL Creatinine 4.15 H (0.66-1.25) mg/dL Glucose 120 H (74-99) mg/dL Calcium 8.1 L (8.4-10.2) mg/dL Calcium panel 12/13/23 Range/Units 07:11 Calcium 8.1 L (8.4-10.2) mg/dL Pituitary panel 12/13/23 Range/Units 07:11 Sodium 138 (137-145) mmol/L Potassium 4.3 (3.5-5.1) mmol/L Chloride 108 H (98-107) mmol/L Carbon Dioxide 23 (22-30) mmol/L BUN 38 H (9-20) mg/dL Creatinine 4.15 H (0.66-1.25) mg/dL Glucose 120 H (74-99) mg/dL Calcium 8.1 L (8.4-10.2) mg/dL Adrenal panel 12/13/23 Range/Units 07:11 Sodium 138 (137-145) mmol/L Potassium 4.3 (3.5-5.1) mmol/L Chloride 108 H (98-107) mmol/L Carbon Dioxide 23 (22-30) mmol/L BUN 38 H (9-20) mg/dL Creatinine 4.15 H (0.66-1.25) mg/dL Glucose 120 H (74-99) mg/dL Calcium 8.1 L (8.4-10.2) mg/dL Assessment and Plan Assessment: 58-year-old male with incidental finding of a possible left-sided renal mass on renal ultrasound, patient creatinine is elevated at 4.1, thus is unable to have contrast based imaging. I discussed with him in order to better evaluate the lesion he will require contrast imaging once his acute kidney injury resolves. This can be done as an outpatient
[2023-12-13] MEDS ORDERED: LIDOCAINE 1% (10MG/ML) FOR IV START INTRADERMA PRN (21:44)
[2023-12-14] MEDS ORDERED: fentaNYL (PF) 50 MCG/ML 2 ML AMP IV PRN (07:00)
[2023-12-14 09:38] LABS: African American GFR (CKD) 16 (>60 ml/min/1.73 sqM); Anion Gap 7 mmol/L; Blood Urea Nitrogen 40 mg/dL (9-20); Calcium 8.3 mg/dL (8.4-10.2); Carbon Dioxide 21 mmol/L (22-30); Chloride 111 mmol/L (98-107); Glucose 86 mg/dL (74-99); Non-African American GFR(CKD) 14 (>60 ml/min/1.73 sqM); Potassium 4.9 mmol/L (3.5-5.1); Sodium 139 mmol/L (137-145)
[2023-12-14 09:40] LABS: INR 1.2 (<1.2); Partial Thromboplastin Time 30.3 sec (22.0-30.0); Prothrombin Time 12.5 sec (10.0-12.5)
--- NOTE | 2023-12-14 10:47 | P.PN ---
Subjective Patient is seen in follow-up for acute kidney injury. Creatinine 4.32 today. Receiving IV fluids. Nonoliguric. Scheduled for BKA today. Vital signs are stable. General: No acute distress. HEENT: Head exam is unremarkable.. LUNGS: No audible rhonchi or wheezes. HEART: Rate and Rhythm are regular. ABDOMEN: Nontender. EXTREMITITES: Left lower extremity wrapped. No edema. No drainage. Objective - Vital Signs Vital signs: Vital Signs Temp 97.8 F 12/14/23 08:17 Pulse 75 12/14/23 08:17 Resp 18 12/14/23 08:17 BP 118/61 12/14/23 08:17 Pulse Ox 95 12/14/23 08:41 FiO2 21 12/14/23 08:41 Intake & Output 12/13/23 12/14/23 12/14/23 18:59 06:59 18:59 Intake Total 308.632 597.356 Output Total 625 900 Balance -316.368 -302.644 Intake: Intake, IV Titration 208.632 237.356 Amount Heparin Sod,Pork in 0.45% 208.632 237.356 NaCl 25,000 unit In 0.45 % NaCl 1 250ml.bag @ 11. 023 UNITS/KG/HR 10 mls/hr IV .Q24H [facility] Rx#: [id number] Oral 100 360 Output: Urine 625 900 Other: Voiding Method Indwelling Catheter Indwelling Catheter Indwelling Catheter # Voids 0 - Labs CBC & Chem 7: 12/11/23 06:15 12/14/23 08:58 Labs: Abnormal Lab Results - Last 24 Hours (Table) 12/14/23 12/14/23 Range/Units 08:58 08:58 INR 1.2 H (<1.2) APTT 30.3 H (22.0-30.0) sec Chloride 111 H (98-107) mmol/L Carbon Dioxide 21 L (22-30) mmol/L BUN 40 H (9-20) mg/dL Creatinine 4.32 H (0.66-1.25) mg/dL Calcium 8.3 L (8.4-10.2) mg/dL Assessment and Plan Plan: Assessment: 1. Acute kidney injury secondary to ATN secondary to vancomycin toxicity. Creatinine 4.15 today. Baseline creatinine 0.75 from November 2023. UA with 1+ protein. No hydronephrosis noted on kidney ultrasound. 2. Peripheral arterial disease with left foot gangrene. Underwent femoropopliteal bypass in September 2023. Scheduled for below the knee amputation this Sunday. Vascular surgery and infectious disease following. 3. Chronic systolic CHF with ejection fraction of 40 to 45%. 4. Metabolic acidosis secondary to acute kidney injury. Status post bicarb drip. On oral bicarb. Improved. 5. Left kidney lesion. Seen by urology. Further workup outpatient. Plan: Maintain normal saline. Continue to monitor renal function and urine output. Avoid nephrotoxins. Continue to assess daily for need for renal replacement therapy. No urgency at this time. Discussed with patient.
[2023-12-14 11:05] LABS: Anisocytosis Slight; Basophils # (A) 0.1 k/uL (0-0.2); Basophils % (A) 1 %; Eosinophils # (A) 0.7 k/uL (0-0.7); Eosinophils % (A) 6 %; HCT 29.7 % (39.0-53.0); HGB 8.9 gm/dL (13.0-17.5); Hypochromasia Marked; Lymphocytes # (A) 0.9 k/uL (1.0-4.8); Lymphocytes % (A) 8 %; MCH 25.9 pg (25.0-35.0); MCHC 30.1 g/dL (31.0-37.0); MCV 85.9 fL (80.0-100.0); Mean Platelet Volume 7.7; Monocytes % (A) 8 %; Neutrophils # (A) 8.9 k/uL (1.3-7.7); Neutrophils % (A) 75 %; Platelet Count 449 k/uL (150-450); RBC 3.45 m/uL (4.30-5.90); RDW 16.2 % (11.5-15.5); WBC 11.8 k/uL (3.8-10.6)
[2023-12-14] MEDS: LACTATED RINGERS 1,000 ML IV SCH (11:05)
[2023-12-14] MEDS: IV FLUID CONTINUATION 1,000 ML IV ONE (11:08)
[2023-12-14] MEDS: DEXAMETHASONE SOD PHOSPHATE 4 MG/ML 1 ML VIAL IV ONE (11:10)
[2023-12-14] MEDS: ONDANSETRON 4 MG/2 ML VIAL IVP ONE (11:11)
[2023-12-14] MEDS ORDERED: VASOPRESSIN 20 UNIT/ML 1 ML VIAL ONE (11:40)
[2023-12-14] MEDS ORDERED: ETOMIDATE 2 MG/ML 10 ML VIAL ONE (11:40)
[2023-12-14] MEDS ORDERED: LIDOCAINE 1% INJ 10MG/ML (20 ML MDV) ONE (11:40)
[2023-12-14] MEDS ORDERED: ePHEDrine 50 MG/ML 1 ML VIAL ONE (11:40)
[2023-12-14] MEDS ORDERED: PHENYLEPHRINE 10 MG/ML VIAL ONE (11:40)
[2023-12-14] MEDS ORDERED: fentaNYL (PF) 50 MCG/ML 2 ML AMP ONE (11:40)
[2023-12-14] MEDS ORDERED: PROPOFOL 10 MG/ML 20 ML VIAL IV ONE (11:40)
[2023-12-14] MEDS ORDERED: MIDAZOLAM 2 MG/2 ML VIAL ONE (11:40)
--- NOTE | 2023-12-14 12:04 | P.PN ---
Subjective Progress Note Date: 12/14/23 PAD The patient is a 58-year-old gentleman with a past medical history significant for cardiomyopathy with a EF between 40 to 45% as well as hypertension and dyslipidemia and anemia and chronic kidney disease who was admitted to the hospital with acute renal failure secondary to vancomycin toxicity causing acute renal failure. We consulted to see the patient because of abnormal cardiac enzymes and mildly abnormal troponin which we felt secondary to nephropathy. December 10, 2023 The patient was seen and evaluated this morning. He is asymptomatic. He is hemodynamically stable. The EKG showed no ischemic changes. The echo was the same as before. Currently he is on heparin for the PAD and acute limb ischemia. No need for heparin from the cardiac standpoint of view. The examination is remarkable for regular rhythm with clear breathing sounds bilaterally and no edema was noted in the right lower extremity 12/10 This morning, patient states he had an episode of a twinge in his chest and the left upper area. It started after he felt a pain from his foot that went up his leg. It is completely gone now. EKG shows changes from prior. Chest wall is nontender. Patient is on a heparin drip with plan for BKA on Sunday. Blood pressure 104/57, heart rate 60, pulse ox 94% on room air. Examination reveals regular rhythm, clear lung sounds, no edema. Dressing in place to the left lower extremity. 12/11 Patient was scheduled for Lexiscan stress test this morning but he refused once he arrived to the unit. He was not able to tolerate having his leg on the stretcher and due to pain it was canceled. There was also concern for him lying flat for imaging. After vascular discussed in detail with the patient the need for the stress test, patient is agreeable to try. Will plan for patient to be premedicated before stress test. Blood pressure 120/61, heart rate 72, pulse ox 95% on room air. Patient has had no further episodes of chest pain.Examination reveals regular rhythm, clear lung sounds, no edema. Dressing in place to the left lower extremity. 12/12 Patient underwent Elsa stress test today which revealed no evidence of reversible ischemia. Blood pressure 108/58, heart rate 61, pulse ox 98% on room air. Repeat blood work reveals BUN 38 creatinine 4.15. 12/13 Patient is seen today in follow-up. He is scheduled for BKA today. He denies having any chest pain, no shortness of breath. Blood pressure 118/61, heart rate 75, pulse ox 97% on room air. Repeat blood work reveals WBC 11.8, hemoglobin 8.9. Assessment Acute renal failure Chronic anemia Rule out coronary artery disease Lower extremities PAD, scheduled for BKA Sunday Cardiomyopathy Plan Continue the current medical regimen Patient is cleared for surgical intervention today with BKA knowing that he is at low risk for cardiac complications during the perioperative period. Follow-up with the patient Nurse practitioner note has been reviewed, I agree with documented findings and plan of care. Patient was seen and examined. Objective - Vital Signs Vital signs: Vital Signs Temp 98.9 F 12/14/23 03:54 Pulse 62 12/14/23 03:54 Resp 16 12/14/23 03:54 BP 112/62 12/14/23 03:54 Pulse Ox 90 L 12/14/23 03:54 FiO2 Intake & Output 12/13/23 12/14/23 12/14/23 18:59 06:59 18:59 Intake Total 308.632 597.356 Output Total 625 900 Balance -316.368 -302.644 Intake: Intake, IV Titration 208.632 237.356 Amount Heparin Sod,Pork in 0.45% 208.632 237.356 NaCl 25,000 unit In 0.45 % NaCl 1 250ml.bag @ 11. 023 UNITS/KG/HR 10 mls/hr IV .Q24H [facility] Rx#: [id number] Oral 100 360 Output: Urine 625 900 Other: Voiding Method Indwelling Catheter Indwelling Catheter # Voids 0 - Labs CBC & Chem 7: 12/14/23 09:57 12/14/23 08:58 Labs: Abnormal Lab Results - Last 24 Hours (Table) 12/13/23 12/13/23 Range/Units 07:11 07:11 APTT 64.4 H (22.0-30.0) sec Chloride 108 H (98-107) mmol/L BUN 38 H (9-20) mg/dL Creatinine 4.15 H (0.66-1.25) mg/dL Glucose 120 H (74-99) mg/dL Calcium 8.1 L (8.4-10.2) mg/dL
[2023-12-14] MEDS: LACTATED RINGERS 1,000 ML IV ONE (12:56)
--- NOTE | 2023-12-14 14:13 | P.OP ---
Date of Procedure: 12/14/23 Preoperative Diagnosis: Critical limb ischemia left foot gangrene Postoperative Diagnosis: Same Procedure(s) Performed: Left below-knee amputation Anesthesia: LEXYA Surgeon: Marcos Payne Estimated Blood Loss (ml): 700 Pathology: none sent Condition: stable Disposition: PACU Indications for Procedure: 58-year-old gentleman with history of left lower extremity gangrene and previous femoral tibial bypass presents to the OR for a left below-knee amputation. Description of Procedure: After written and informed consent was obtained from the patient and all risks, benefits, and complications were discussed the patient was brought to the operative suite and laid in a supine position. The area of the left lower extremity was prepped and draped in the usual fashion. Timeout was performed in usual fashion. Antibiotics were given prior to incisions. The intended posterior flap incision was then marked and the incision was created four fingerbreadths distal to the tibial tuberosity. The incision was continued to the fascia and the fascia was incised throughout the entire incision length. The anterior compartment muscles were divided using electrocautery. The anterior aspect of the tibia and fibula were then dissected free and cleared. A lap sponge was placed around the tibia and fibula after circumferential dissection was completed to protect the vascular structures during resection. A periosteal elevator was used to clear the periosteum from the tibia and fibula and the tibia was resected with an oscillating saw. The fibula was transected 1-2 cm proximal to the tibial resection. The popliteal artery, vein were then located and suture ligated. The amputation was then completed with an amputation knife and the lower leg was sent off the field. The nerve was located and dissected proximally and high ligation was performed with a 3-0 silk suture. The flap was then debulked and hemostasis was ensured with cautery and suture ligation of bleeding vessels. Once hemostatic the flap was irrigated with antibiotic solution. There was some significant edema and therefore a suman drain was placed and secured with 3-0 nylon suture. The flap was then brought anteriorly and closed with 2-0 Vicryl suture in a figure eight fashion for the fascia, 3-0 Vicryl for the deep dermal and 2-0 Nylon for the skin. The area was then cleansed and dressed with 4x4 fluffs, Kerlix and an James wrap. The patient tolerated the procedure well and was sent to PACU for recovery.
[2023-12-14] MEDS: HYDROmorphone 0.5 MG/0.5 ML SYRINGE IVP PRN (14:23)
[2023-12-14 16:45] LABS: Anisocytosis Slight; HCT 26.8 % (39.0-53.0); HGB 8.4 gm/dL (13.0-17.5); Hypochromasia Marked; MCH 26.9 pg (25.0-35.0); MCHC 31.2 g/dL (31.0-37.0); MCV 86.1 fL (80.0-100.0); Mean Platelet Volume 7.2; Platelet Count 417 k/uL (150-450); RBC 3.12 m/uL (4.30-5.90); RDW 16.1 % (11.5-15.5); WBC 10.9 k/uL (3.8-10.6)
[2023-12-14 20:39] LABS: Glucose,Whole Blood 125 mg/dL (70-110)
--- NOTE | 2023-12-14 22:44 | P.PN ---
Subjective Progress Note Date: 12/14/23 58 years old male with past medical history of multiple medical problems, he was transferred from [facility] for altered mental status. He is a known case of left leg cellulitis and wounds secondary to MRSA. Patient was on IV vancomycin. Also patient was evidence of acute kidney injury with creatinine went up from 2.1 on admission today is 4.01. Baseline is around 0.7. Has been followed closely by formula technician and he was started on gentle hydration and sodium bicarb pills Renal ultrasound showing possible solid lytic lesion on the left kidney 3.4 x 2.6 x 2.9 cm Patient was shown to have peripheral vascular disease with chronic critical left lower extremity ischemia s/p left common femoral and endarterectomy and left femoral-popliteal bypass Vital signs stable and patient is afebrile Labs reviewed and look stable Hemoglobin is 9.5 Creatinine 4.01 Objective - Vital Signs Vital signs: Vital Signs Temp 98.2 F 12/14/23 10:46 Pulse 70 12/14/23 10:46 Resp 18 12/14/23 10:46 BP 162/67 12/14/23 10:46 Pulse Ox 98 12/14/23 10:46 FiO2 21 12/14/23 08:41 Intake & Output 12/13/23 12/14/23 12/14/23 18:59 06:59 18:59 Intake Total 308.632 597.356 Output Total 625 900 650 Balance -316.368 -302.644 -650 Intake: Intake, IV Titration 208.632 237.356 Amount Heparin Sod,Pork in 0.45% 208.632 237.356 NaCl 25,000 unit In 0.45 % NaCl 1 250ml.bag @ 11. 023 UNITS/KG/HR 10 mls/hr IV .Q24H [facility] Rx#: [id number] Oral 100 360 Output: Urine 625 900 650 Other: Voiding Method Indwelling Catheter Indwelling Catheter Indwelling Catheter # Voids 0 - Exam GENERAL: The patient is alert and oriented x3, not in any acute distress. Well developed, well nourished. HEENT: Pupils are round and equally reacting to light. EOMI. No scleral icterus. No conjunctival pallor. Normocephalic, atraumatic. No pharyngeal erythema. No thyromegaly. CARDIOVASCULAR: S1 and S2 present. No murmurs, rubs, or gallops. PULMONARY: Chest is clear to auscultation, no wheezing , no crackles. ABDOMEN: Soft, nontender, nondistended, normoactive bowel sounds. No palpable organomegaly. MUSCULOSKELETAL: No joint swelling or deformity. -EXTREMITIES: No cyanosis, clubbing, or pedal edema. Left lower extremity cellulitis, and gangrene, with dressing in place NEUROLOGICAL: Gross neurological examination did not reveal any focal deficits. SKIN: No rashes. no petechiae. - Labs CBC & Chem 7: 12/14/23 16:26 12/14/23 08:58 Labs: Abnormal Lab Results - Last 24 Hours (Table) 12/14/23 12/14/23 12/14/23 Range/Units 08:58 08:58 09:57 WBC 11.8 H (3.8-10.6) k/uL RBC 3.45 L (4.30-5.90) m/uL Hgb 8.9 L (13.0-17.5) gm/dL Hct 29.7 L (39.0-53.0) % MCHC 30.1 L (31.0-37.0) g/dL RDW 16.2 H (11.5-15.5) % INR 1.2 H (<1.2) APTT 30.3 H (22.0-30.0) sec Chloride 111 H (98-107) mmol/L Carbon Dioxide 21 L (22-30) mmol/L BUN 40 H (9-20) mg/dL Creatinine 4.32 H (0.66-1.25) mg/dL Calcium 8.3 L (8.4-10.2) mg/dL Assessment and Plan Assessment: Assessment and Plan Assessment: Left lower extremity cellulitis and wound infection and gangrene secondary to ischemic peripheral artery disease. Plan for BKA on Sunday peripheral vascular disease with chronic critical left lower extremity ischemia s/p left common femoral and endarterectomy and left femoral-popliteal bypass Acute kidney injury Left kidney lucency suspicious for kidney mass Metabolic encephalopathy improving left kidney lytic lesion 3.4 x 2.6 x 2.9 cm Acute metabolic acidemia COPD no exacerbation Nicotine dependence Anxiety and depression, not an active issue Plan: Stress test per cardiology team Discontinue IV vancomycin Continue with antibiotic as per ID team , currently on IV cefepime Follow-up culture result Hold Xarelto and continue with heparin drip Continue gentle hydration and sodium bicarb Plan for left BKA on Wednesday 12/13 Patient is on aspirin 81 mg which is on Several consultants on the case including ID team, formula technician, vascular surger y and health promotion specialist Labs and medication were reviewed.. Continue same treatment. Continue with symptomatic treatment. Resume home medication. Monitor labs and vitals. DVT and GI prophylaxis. Further recommendations as per clinical course of the patient DVT prophylaxis: heparin GI Prophylaxis: Pepcid PT/OT: Pending Prognosis is guarded
--- NOTE | 2023-12-15 09:26 | P.PN ---
Subjective Progress Note Date: 12/15/23 Patient seen and examined. No complaints. Resting in bed comfortably. No acute distress. Left lower extremity dressing clean dry and intact. Knee immobilizer in place. Postoperative left below-knee amputation Plan for stump cooker soda rigid dressing in the next 1 to 2 days when available per comfort prosthetics. Change dressing tomorrow with gauze Kerlix and James bandage. Remove [place] prior to discharge. Objective - Vital Signs Vital signs: Vital Signs Temp 98.5 F 12/15/23 08:00 Pulse 76 12/15/23 08:00 Resp 18 12/15/23 08:00 BP 123/54 12/15/23 08:00 Pulse Ox 96 12/15/23 08:00 FiO2 21 12/14/23 08:41 Intake & Output 12/14/23 12/15/23 12/15/23 18:59 06:59 18:59 Intake Total 1600 540 222 Output Total 1455 640 Balance 145 -100 222 Intake: IV 1600 Oral 540 222 Blood Product 0 Rc Pheresis 2 As3 Unit 0 [id number] Output: Urine 755 640 Estimated Blood Loss 700 Other: Voiding Method Indwelling Catheter Indwelling Catheter - Labs CBC & Chem 7: 12/14/23 16:26 12/14/23 08:58 Labs: Abnormal Lab Results - Last 24 Hours (Table) 12/13/23 12/14/23 12/14/23 Range/Units 07:05 08:58 08:58 WBC (3.8-10.6) k/uL RBC (4.30-5.90) m/uL Hgb (13.0-17.5) gm/dL Hct (39.0-53.0) % MCHC (31.0-37.0) g/dL RDW (11.5-15.5) % Neutrophils # (1.3-7.7) k/uL Lymphocytes # (1.0-4.8) k/uL INR 1.2 H (<1.2) APTT 30.3 H (22.0-30.0) sec Chloride 111 H (98-107) mmol/L Carbon Dioxide 21 L (22-30) mmol/L BUN 40 H (9-20) mg/dL Creatinine 4.32 H (0.66-1.25) mg/dL POC Glucose (mg/dL) (70-110) mg/dL Calcium 8.3 L (8.4-10.2) mg/dL Crossmatch See Detail 12/14/23 12/14/23 12/14/23 Range/Units 09:57 16:26 20:36 WBC 11.8 H 10.9 H (3.8-10.6) k/uL RBC 3.45 L 3.12 L (4.30-5.90) m/uL Hgb 8.9 L 8.4 L (13.0-17.5) gm/dL Hct 29.7 L 26.8 L (39.0-53.0) % MCHC 30.1 L (31.0-37.0) g/dL RDW 16.2 H 16.1 H (11.5-15.5) % Neutrophils # 8.9 H (1.3-7.7) k/uL Lymphocytes # 0.9 L (1.0-4.8) k/uL INR (<1.2) APTT (22.0-30.0) sec Chloride (98-107) mmol/L Carbon Dioxide (22-30) mmol/L BUN (9-20) mg/dL Creatinine (0.66-1.25) mg/dL POC Glucose (mg/dL) 125 H (70-110) mg/dL Calcium (8.4-10.2) mg/dL Crossmatch
--- NOTE | 2023-12-15 10:31 | P.PN ---
Subjective Patient is seen in follow-up for acute kidney injury. Creatinine 4.32 yesterday. Receiving IV fluids. Nonoliguric. Status post BKA December 14, 2023. Vital signs are stable. General: No acute distress. HEENT: Head exam is unremarkable.. LUNGS: No audible rhonchi or wheezes. HEART: Rate and Rhythm are regular. ABDOMEN: Nontender. EXTREMITITES: Left BKA noted. No edema. No drainage. Objective - Vital Signs Vital signs: Vital Signs Temp 98.5 F 12/15/23 08:00 Pulse 76 12/15/23 08:00 Resp 18 12/15/23 08:00 BP 123/54 12/15/23 08:00 Pulse Ox 96 12/15/23 08:00 FiO2 21 12/14/23 08:41 Intake & Output 12/14/23 12/15/23 12/15/23 18:59 06:59 18:59 Intake Total 1600 540 222 Output Total 1455 640 Balance 145 -100 222 Intake: IV 1600 Oral 540 222 Blood Product 0 Rc Pheresis 2 As3 Unit 0 [id number] Output: Urine 755 640 Estimated Blood Loss 700 Other: Voiding Method Indwelling Catheter Indwelling Catheter - Labs CBC & Chem 7: 12/14/23 16:26 12/14/23 08:58 Labs: Abnormal Lab Results - Last 24 Hours (Table) 12/13/23 12/14/23 12/14/23 Range/Units 07:05 09:57 16:26 WBC 11.8 H 10.9 H (3.8-10.6) k/uL RBC 3.45 L 3.12 L (4.30-5.90) m/uL Hgb 8.9 L 8.4 L (13.0-17.5) gm/dL Hct 29.7 L 26.8 L (39.0-53.0) % MCHC 30.1 L (31.0-37.0) g/dL RDW 16.2 H 16.1 H (11.5-15.5) % Neutrophils # 8.9 H (1.3-7.7) k/uL Lymphocytes # 0.9 L (1.0-4.8) k/uL POC Glucose (mg/dL) (70-110) mg/dL Crossmatch See Detail 12/14/23 Range/Units 20:36 WBC (3.8-10.6) k/uL RBC (4.30-5.90) m/uL Hgb (13.0-17.5) gm/dL Hct (39.0-53.0) % MCHC (31.0-37.0) g/dL RDW (11.5-15.5) % Neutrophils # (1.3-7.7) k/uL Lymphocytes # (1.0-4.8) k/uL POC Glucose (mg/dL) 125 H (70-110) mg/dL Crossmatch Assessment and Plan Plan: Assessment: 1. Acute kidney injury secondary to ATN secondary to vancomycin toxicity. Creatinine 4.32 yesterday. Baseline creatinine 0.75 from November 2023. UA with 1+ protein. No hydronephrosis noted on kidney ultrasound. 2. Peripheral arterial disease with left foot gangrene. Underwent femoropopliteal bypass in September 2023. Status post left BKA December 14, 2023. Vascular surgery and infectious disease following. 3. Chronic systolic CHF with ejection fraction of 40 to 45%. 4. Metabolic acidosis secondary to acute kidney injury. Status post bicarb drip. On oral bicarb. Improved. 5. Left kidney lesion. Seen by urology. Further workup outpatient. 6. Acute blood loss anemia status post blood transfusion this admission. Plan: Maintain normal saline. Continue to monitor renal function and urine output. Avoid nephrotoxins. Check iron studies. Continue to assess daily for need for renal replacement therapy. No urgency at this time. Discussed with patient.
--- NOTE | 2023-12-15 11:06 | P.PN ---
Subjective Progress Note Date: 12/14/23 Principal diagnosis: Reason for follow-up is sepsis and left lower extremity cellulitis Patient is a 58-year-old male with a past medical history significant for COPD also with a history of PAD with recent multiple admission to the hospital with necrotic left foot requiring revascularization recently did have a wound infection culture positive for MRSA and Pseudomonas patient did get a PICC line and was [facility] to [facility] hospital mental status changes elevated vancomycin trough and creatinine.Patient is status post left below the knee amputation completed 12/14/2023 by vascular surgery. On today's evaluation that is 12/14/2023, patient has been afebrile, patient is breathing comfortably and is currently on 8 L nasal cannula oxygen, patient denies having any significant cough no chest pain shortness of breath, patient denies nausea vomiting or diarrhea and no abdominal pain and has been complaining of excruciating pain pain to the left BKA stump Patient white count is 11.8, creatinine is 4.32 Objective - Vital Signs Vital signs: Vital Signs Temp 98.2 F 12/14/23 10:46 Pulse 70 12/14/23 10:46 Resp 18 12/14/23 10:46 BP 162/67 12/14/23 10:46 Pulse Ox 98 12/14/23 10:46 FiO2 21 12/14/23 08:41 Intake & Output 12/13/23 12/14/23 12/14/23 18:59 06:59 18:59 Intake Total 308.632 218.822 8190 Output Total 625 900 650 Balance -316.368 -302.644 350 Intake: IV 1000 Intake, IV Titration 208.632 237.356 Amount Heparin Sod,Pork in 0.45% 208.632 237.356 NaCl 25,000 unit In 0.45 % NaCl 1 250ml.bag @ 11. 023 UNITS/KG/HR 10 mls/hr IV .Q24H [facility] Rx#: [id number] Oral 100 360 Output: Urine 625 900 650 Other: Voiding Method Indwelling Catheter Indwelling Catheter Indwelling Catheter # Voids 0 - Exam GENERAL DESCRIPTION: Middle-age male lying in bed in no distress RESPIRATORY SYSTEM: Unlabored breathing , decreased breath sounds at bases HEART: S1 S2 regular rate and rhythm , ABDOMEN: Soft , no tenderness EXTREMITIES: left BKA stump is currently dressed - Labs CBC & Chem 7: 12/14/23 16:26 12/14/23 08:58 Labs: Abnormal Lab Results - Last 24 Hours (Table) 12/14/23 12/14/23 12/14/23 Range/Units 08:58 08:58 09:57 WBC 11.8 H (3.8-10.6) k/uL RBC 3.45 L (4.30-5.90) m/uL Hgb 8.9 L (13.0-17.5) gm/dL Hct 29.7 L (39.0-53.0) % MCHC 30.1 L (31.0-37.0) g/dL RDW 16.2 H (11.5-15.5) % INR 1.2 H (<1.2) APTT 30.3 H (22.0-30.0) sec Chloride 111 H (98-107) mmol/L Carbon Dioxide 21 L (22-30) mmol/L BUN 40 H (9-20) mg/dL Creatinine 4.32 H (0.66-1.25) mg/dL Calcium 8.3 L (8.4-10.2) mg/dL Assessment and Plan (1) Leukocytosis Current Visit: Yes Status: Acute Code(s): D72.829 - ELEVATED WHITE BLOOD CELL COUNT, UNSPECIFIED SNOMED Code(s): 799564761 (2) Cellulitis of left leg Current Visit: No Status: Acute Code(s): L03.116 - CELLULITIS OF LEFT LOWER LIMB SNOMED Code(s): 55383676039362557 (3) Infected wound Current Visit: No Status: Acute Code(s): T14.8XXA - OTHER INJURY OF UNSPECIFIED BODY REGION, INITIAL ENCOUNTER; L08.9 - LOCAL INFECTION OF THE SKIN AND SUBCUTANEOUS TISSUE, UNSP SNOMED Code(s): 53185018 Plan: 1patient with a chronic nonhealing wound to the left lower extremity in this patient who did have significant PAD requiring revascularization surgery now with more necrotic left foot wound left lower extremity and cellulitis with a previous culture positive for MRSA and Pseudomonas 2-patient did have a negative stress test t and the patient is status post left below the knee amputation completed on 12/14/2023 we will keep the patient on daptomycin and cefepime perioperatively but no need for antibiotics on discharge Dictation was produced using [employer] dictation software. please excuse any grammatical, word or spelling errors. Time with Patient: Less than 30
[2023-12-15] MEDS: RIVAROXABAN 2.5 MG TABLET PO SCH (12:22)
--- NOTE | 2023-12-15 15:25 | P.PN ---
Subjective Progress Note Date: 12/15/23 58 years old male with past medical history of multiple medical problems, he was transferred from [facility] for altered mental status. He is a known case of left leg cellulitis and wounds secondary to MRSA. Patient was on IV vancomycin. Also patient was evidence of acute kidney injury with creatinine went up from 2.1 on admission today is 4.01. Baseline is around 0.7. Has been followed closely by financial solutions advisor and he was started on gentle hydration and sodium bicarb pills Renal ultrasound showing possible solid lytic lesion on the left kidney 3.4 x 2.6 x 2.9 cm Patient was shown to have peripheral vascular disease with chronic critical left lower extremity ischemia s/p left common femoral and endarterectomy and left femoral-popliteal bypass Vital signs stable and patient is afebrile Labs reviewed and look stable Hemoglobin is 9.5 Creatinine 4.01 12/14/2023 -- patient seen and evaluated in room at bedside; has been afebrile, patient is breathing comfortably and is currently on 8 L nasal cannula oxygen, patient denies having any significant cough no chest pain shortness of breath, patient denies nausea vomiting or diarrhea and no abdominal pain and has been complaining of excruciating pain pain to the left BKA stump Patient white count is 11.8, creatinine is 4.32 patient with a chronic nonhealing wound to the left lower extremity in this patient who did have significant PAD requiring revascularization surgery now with more necrotic left foot wound left lower extremity and cellulitis with a previous culture positive for MRSA and Pseudomonas -patient did have a negative stress test t and the patient is status post left below the knee amputation completed on 12/14/2023 we will keep the patient on daptomycin and cefepime perioperatively but no need for antibiotics on discharge Objective - Vital Signs Vital signs: Vital Signs Temp 98.4 F 12/15/23 11:02 Pulse 73 12/15/23 11:02 Resp 17 12/15/23 11:02 BP 138/63 12/15/23 11:02 Pulse Ox 95 12/15/23 11:02 FiO2 21 12/14/23 08:41 Intake & Output 12/14/23 12/15/23 12/15/23 18:59 06:59 18:59 Intake Total 1600 540 222 Output Total 1455 640 850 Balance 145 -100 -628 Intake: IV 1600 Oral 540 222 Blood Product 0 Rc Pheresis 2 As3 Unit 0 [id number] Output: Urine 755 640 850 Estimated Blood Loss 700 Other: Voiding Method Indwelling Catheter Indwelling Catheter - Exam GENERAL: The patient is alert and oriented x3, not in any acute distress. Well developed, well nourished. HEENT: Pupils are round and equally reacting to light. EOMI. No scleral icterus. No conjunctival pallor. Normocephalic, atraumatic. No pharyngeal erythema. No thyromegaly. CARDIOVASCULAR: S1 and S2 present. No murmurs, rubs, or gallops. PULMONARY: Chest is clear to auscultation, no wheezing , no crackles. ABDOMEN: Soft, nontender, nondistended, normoactive bowel sounds. No palpable organomegaly. MUSCULOSKELETAL: No joint swelling or deformity. -EXTREMITIES: No cyanosis, clubbing, or pedal edema. Left lower extremity cellulitis, and gangrene, with dressing in place NEUROLOGICAL: Gross neurological examination did not reveal any focal deficits. SKIN: No rashes. no petechiae. - Labs CBC & Chem 7: 12/14/23 16:26 12/14/23 08:58 Labs: Abnormal Lab Results - Last 24 Hours (Table) 12/13/23 12/14/23 12/14/23 Range/Units 07:05 09:57 16:26 WBC 10.9 H (3.8-10.6) k/uL RBC 3.12 L (4.30-5.90) m/uL Hgb 8.4 L (13.0-17.5) gm/dL Hct 26.8 L (39.0-53.0) % RDW 16.1 H (11.5-15.5) % Neutrophils # 8.9 H (1.3-7.7) k/uL Lymphocytes # 0.9 L (1.0-4.8) k/uL POC Glucose (mg/dL) (70-110) mg/dL Crossmatch See Detail 12/14/23 Range/Units 20:36 WBC (3.8-10.6) k/uL RBC (4.30-5.90) m/uL Hgb (13.0-17.5) gm/dL Hct (39.0-53.0) % RDW (11.5-15.5) % Neutrophils # (1.3-7.7) k/uL Lymphocytes # (1.0-4.8) k/uL POC Glucose (mg/dL) 125 H (70-110) mg/dL Crossmatch Assessment and Plan Assessment: Assessment and Plan Assessment: Left lower extremity cellulitis and wound infection and gangrene secondary to ischemic peripheral artery disease. Plan for BKA on Sunday peripheral vascular disease with chronic critical left lower extremity ischemia s/p left common femoral and endarterectomy and left femoral-popliteal bypass Acute kidney injury Left kidney lucency suspicious for kidney mass Metabolic encephalopathy improving left kidney lytic lesion 3.4 x 2.6 x 2.9 cm Acute metabolic acidemia COPD no exacerbation Nicotine dependence Anxiety and depression, not an active issue Plan: Stress test per cardiology team Discontinue IV vancomycin Continue with antibiotic as per ID team , currently on IV cefepime Follow-up culture result Hold Xarelto and continue with heparin drip Continue gentle hydration and sodium bicarb Plan for left BKA on Wednesday 12/13 Patient is on aspirin 81 mg which is on Several consultants on the case including ID team, financial solutions advisor, vascular surgery and dye box operator Labs and medication were reviewed.. Continue same treatment. Continue with symptomatic treatment. Resume home medication. Monitor labs and vitals. DVT and GI prophylaxis. Further recommendations as per clinical course of the patient DVT prophylaxis: heparin GI Prophylaxis: Pepcid PT/OT: Pending Prognosis is guarded
[2023-12-15 15:47] LABS: African American GFR (CKD) 16 (>60 ml/min/1.73 sqM); Anion Gap 7 mmol/L; Blood Urea Nitrogen 39 mg/dL (9-20); Calcium 8.2 mg/dL (8.4-10.2); Carbon Dioxide 21 mmol/L (22-30); Chloride 111 mmol/L (98-107); Glucose 90 mg/dL (74-99); Non-African American GFR(CKD) 14 (>60 ml/min/1.73 sqM); Potassium 4.1 mmol/L (3.5-5.1); Sodium 139 mmol/L (137-145)
[2023-12-15 15:48] LABS: Anisocytosis Slight; Basophils # (A) 0.1 k/uL (0-0.2); Basophils % (A) 0 %; Eosinophils # (A) 0.3 k/uL (0-0.7); Eosinophils % (A) 2 %; HCT 25.9 % (39.0-53.0); HGB 7.9 gm/dL (13.0-17.5); Hypochromasia Moderate; Lymphocytes # (A) 1.3 k/uL (1.0-4.8); Lymphocytes % (A) 10 %; MCHC 30.4 g/dL (31.0-37.0); MCV 85.6 fL (80.0-100.0); Mean Platelet Volume 7.6; Monocytes # (A) 0.9 k/uL (0-1.0); Monocytes % (A) 7 %; Neutrophils # (A) 10.6 k/uL (1.3-7.7); Neutrophils % (A) 80 %; Platelet Count 404 k/uL (150-450); RBC 3.03 m/uL (4.30-5.90); RDW 16.5 % (11.5-15.5); WBC 13.3 k/uL (3.8-10.6)
[2023-12-15] MEDS: TEMAZEPAM 7.5 MG CAP PO PRN (23:38)
[2023-12-16 06:27] LABS: % Iron Saturation 21.82 (15.00-50.00)
[2023-12-16 09:20] LABS: African American GFR (CKD) 16 (>60 ml/min/1.73 sqM); Anion Gap 6 mmol/L; Blood Urea Nitrogen 37 mg/dL (9-20); Calcium 8.2 mg/dL (8.4-10.2); Carbon Dioxide 22 mmol/L (22-30); Chloride 111 mmol/L (98-107); Glucose 75 mg/dL (74-99); Magnesium 1.9 mg/dL (1.6-2.3); Non-African American GFR(CKD) 14 (>60 ml/min/1.73 sqM); Potassium 4.7 mmol/L (3.5-5.1); Sodium 139 mmol/L (137-145)
--- NOTE | 2023-12-16 09:37 | CT ---
EXAMINATION TYPE: CT brain wo con CT DLP: 1227.4 mGycm, Automated exposure control for dose reduction was used. DATE OF EXAM: 12/16/2023 9:09 AM COMPARISON: 12/06/2023. CLINICAL INDICATION:Male, 58 years old with history of change in mentation, TECHNIQUE: Brain: Axial CT images of the brain were obtained with coronal and sagittal reformats created and rev iewed. Contrast used: None. Oral contrast used: None. FINDINGS: Brain: Extra-axial spaces: No abnormal extra-axial fluid collections. Ventricular system: Dilatation in proportion to cerebral atrophy. Cerebral parenchyma: Cerebral atrophy. No acute intraparenchymal hemorrhage or mass effect. The matute -white junction is well differentiated. Scattered hypoattenuating areas are seen within the white mat ter. Cerebellum: Unremarkable. Mass effect: No evidence of midline shift. Intracranial vasculature: Atherosclerotic calcifications of the intracranial vessels. Soft tissues: Normal. Calvarium/osseous structures: No depressed skull fracture. Paranasal sinuses and mastoid air cells: Mild scattered paranasal sinus disease. Visualized orbits: Orbital contents are intact. IMPRESSION: 1. No acute intracranial process. 2. Nonspecific white matter changes, likely secondary to chronic small vessel ischemic disease.
--- NOTE | 2023-12-16 10:29 | P.PN ---
Subjective Patient is seen in follow-up for acute kidney injury. Renal function stable. Receiving IV fluids. Nonoliguric. Status post BKA December 14, 2023. Somewhat confused this morning. Vital signs are stable. General: No acute distress. HEENT: Head exam is unremarkable.. LUNGS: No audible rhonchi or wheezes. HEART: Rate and Rhythm are regular. ABDOMEN: Nontender. EXTREMITITES: Left BKA noted. No edema. No drainage. Objective - Vital Signs Vital signs: Vital Signs Temp 98.8 F 12/16/23 07:49 Pulse 73 12/16/23 07:49 Resp 17 12/16/23 07:49 BP 126/63 12/16/23 07:49 Pulse Ox 94 L 12/16/23 07:49 FiO2 21 12/14/23 08:41 Intake & Output 12/15/23 12/16/23 12/16/23 18:59 06:59 18:59 Intake Total 458 540 Output Total 850 925 Balance -392 -385 Intake: Oral 458 540 Output: Urine 850 925 Other: Voiding Method Indwelling Catheter Indwelling Catheter - Labs CBC & Chem 7: 12/15/23 14:56 12/16/23 07:14 Labs: Abnormal Lab Results - Last 24 Hours (Table) 12/15/23 12/15/23 12/15/23 Range/Units 14:56 14:56 14:56 WBC 13.3 H (3.8-10.6) k/uL RBC 3.03 L (4.30-5.90) m/uL Hgb 7.9 L (13.0-17.5) gm/dL Hct 25.9 L (39.0-53.0) % MCHC 30.4 L (31.0-37.0) g/dL RDW 16.5 H (11.5-15.5) % Neutrophils # 10.6 H (1.3-7.7) k/uL Chloride 111 H (98-107) mmol/L Carbon Dioxide 21 L (22-30) mmol/L BUN 39 H (9-20) mg/dL Creatinine 4.39 H (0.66-1.25) mg/dL Calcium 8.2 L (8.4-10.2) mg/dL Iron 36 L (65-175) UG/DL TIBC 165 L (228-460) UG/DL Transferrin 118.0 L (204.0-354.0) mg/dL Ferritin 616.0 H (22.0-322.0) ng/mL 12/16/23 Range/Units 07:14 WBC (3.8-10.6) k/uL RBC (4.30-5.90) m/uL Hgb (13.0-17.5) gm/dL Hct (39.0-53.0) % MCHC (31.0-37.0) g/dL RDW (11.5-15.5) % Neutrophils # (1.3-7.7) k/uL Chloride 111 H (98-107) mmol/L Carbon Dioxide (22-30) mmol/L BUN 37 H (9-20) mg/dL Creatinine 4.25 H (0.66-1.25) mg/dL Calcium 8.2 L (8.4-10.2) mg/dL Iron (65-175) UG/DL TIBC (228-460) UG/DL Transferrin (204.0-354.0) mg/dL Ferritin (22.0-322.0) ng/mL Assessment and Plan Plan: Assessment: 1. Acute kidney injury secondary to ATN secondary to vancomycin toxicity. Creatinine stable at 4.25 today. Baseline creatinine 0.75 from November 2023. UA with 1+ protein. No hydronephrosis noted on kidney ultrasound. 2. Peripheral arterial disease with left foot gangrene. Underwent femoropopliteal bypass in September 2023. Status post left BKA December 14, 2023. Vascular surgery and infectious disease following. 3. Chronic systolic CHF with ejection fraction of 40 to 45%. 4. Metabolic acidosis secondary to acute kidney injury. Status post bicarb drip. On oral bicarb. Improved. 5. Left kidney lesion. Seen by urology. Further workup outpatient. 6. Acute blood loss anemia status post blood transfusion this admission. Improved. Mild iron deficiency noted. Plan: Maintain normal saline. Continue to monitor renal function and urine output. Avoid nephrotoxins. IV iron x 1 dose today. Continue to assess daily for need for renal replacement therapy. No urgency at this time.
[2023-12-16 11:32] LABS: Anisocytosis Slight; HCT 25.4 % (39.0-53.0); HGB 7.8 gm/dL (13.0-17.5); Hypochromasia Moderate; MCH 25.9 pg (25.0-35.0); MCHC 30.5 g/dL (31.0-37.0); MCV 84.9 fL (80.0-100.0); Mean Platelet Volume 8.4; Platelet Count 396 k/uL (150-450); RBC 2.99 m/uL (4.30-5.90); RDW 16.7 % (11.5-15.5); WBC 13.3 k/uL (3.8-10.6)
[2023-12-16 12:20] LABS: Metamyelocytes # (M) 0.13 k/uL (0); Metamyelocytes % 1 %; Nucleated Red Blood Cells 0 /100 WBC (0-0)
[2023-12-16 12:22] LABS: Lymphocytes # (M) 1.73 k/uL (1.0-4.8); Myelocytes # (M) 0.27 k/uL (0); Myelocytes % 2 %; Neutrophils # (M) 10.24 k/uL (1.3-7.7); Neutrophils % (M) 77 %; Total Cells Counted 200
[2023-12-16] MEDS: SODIUM FERRIC GLUCONAT-SUCROSE 125 MG in SODIUM CHLORIDE 0.9% 100 ML IVPB ONE (12:22)
[2023-12-16] MEDS: QUEtiapine 25 MG TAB PO PRN (20:17)
[2023-12-16] MEDS: GABAPENTIN 300 MG CAP PO SCH (20:17)
--- NOTE | 2023-12-16 22:45 | P.PN ---
Subjective Progress Note Date: 12/15/23 Principal diagnosis: Reason for follow-up is sepsis and left lower extremity cellulitis Patient is a 58-year-old male with a past medical history significant for COPD also with a history of PAD with recent multiple admission to the hospital with necrotic left foot requiring revascularization recently did have a wound infection culture positive for MRSA and Pseudomonas patient did get a PICC line and was receiving IV vancomycin and cefepime at the residential presented to the hospital mental status changes elevated vancomycin trough and creatinine.Patient is status post left below the knee amputation completed 12/14/2023 by vascular surgery. On today's evaluation that is 12/15/2023, Patient is afebrile this morning he denies any chills, patient mention breathing comfortably and is currently on room air, patient denies any chest pain occasional cough patient denies any abdominal pain no diarrhea no nausea no vomiting patient pain to the left BKA stump is currently controlled Patient white count is 13.3 creatinine is 4.39 Objective - Vital Signs Vital signs: Vital Signs Temp 98.4 F 12/15/23 11:02 Pulse 73 12/15/23 11:02 Resp 17 12/15/23 11:02 BP 138/63 12/15/23 11:02 Pulse Ox 95 12/15/23 11:02 FiO2 21 12/14/23 08:41 Intake & Output 12/14/23 12/15/23 12/15/23 18:59 06:59 18:59 Intake Total 1600 540 222 Output Total 1455 640 850 Balance 145 -100 -628 Intake: IV 1600 Oral 540 222 Blood Product 0 Rc Pheresis 2 As3 Unit 0 [id number] Output: Urine 755 640 850 Estimated Blood Loss 700 Other: Voiding Method Indwelling Catheter Indwelling Catheter - Exam Middle-age male lying in bed in no distress Respiratory system unlabored breathing Left BKA stump is currently dressed Patient is awake alert oriented, mood and affect is normal - Labs CBC & Chem 7: 12/16/23 07:14 12/16/23 07:14 Labs: Abnormal Lab Results - Last 24 Hours (Table) 12/13/23 12/14/23 12/14/23 Range/Units 07:05 09:57 16:26 WBC 11.8 H 10.9 H (3.8-10.6) k/uL RBC 3.45 L 3.12 L (4.30-5.90) m/uL Hgb 8.9 L 8.4 L (13.0-17.5) gm/dL Hct 29.7 L 26.8 L (39.0-53.0) % MCHC 30.1 L (31.0-37.0) g/dL RDW 16.2 H 16.1 H (11.5-15.5) % Neutrophils # 8.9 H (1.3-7.7) k/uL Lymphocytes # 0.9 L (1.0-4.8) k/uL POC Glucose (mg/dL) (70-110) mg/dL Crossmatch See Detail 12/14/23 Range/Units 20:36 WBC (3.8-10.6) k/uL RBC (4.30-5.90) m/uL Hgb (13.0-17.5) gm/dL Hct (39.0-53.0) % MCHC (31.0-37.0) g/dL RDW (11.5-15.5) % Neutrophils # (1.3-7.7) k/uL Lymphocytes # (1.0-4.8) k/uL POC Glucose (mg/dL) 125 H (70-110) mg/dL Crossmatch Assessment and Plan (1) Leukocytosis Current Visit: Yes Status: Acute Code(s): D72.829 - ELEVATED WHITE BLOOD CELL COUNT, UNSPECIFIED SNOMED Code(s): 286098220 (2) Cellulitis of left leg Current Visit: No Status: Acute Code(s): L03.116 - CELLULITIS OF LEFT LOWER LIMB SNOMED Code(s): 62178046282373191 (3) Infected wound Current Visit: No Status: Acute Code(s): T14.8XXA - OTHER INJURY OF UNSPECIFIED BODY REGION, INITIAL ENCOUNTER; L08.9 - LOCAL INFECTION OF THE SKIN AND SUBCUTANEOUS TISSUE, UNSP SNOMED Code(s): 11499932 Plan: 1patient with a chronic nonhealing wound to the left lower extremity in this patient who did have significant PAD requiring revascularization surgery now with more necrotic left foot wound left lower extremity and cellulitis with a previous culture positive for MRSA and Pseudomonas 2-patient did have a negative stress test and the patient is status post left below the knee amputation completed on 12/14/2023 3-patient to continue with daptomycin and cefepime perioperatively however will not need any long-term antibiotics Dictation was produced using [employer] dictation software. please excuse any grammatical, word or spelling errors. Time with Patient: Less than 30
--- NOTE | 2023-12-16 22:46 | P.PN ---
Subjective Progress Note Date: 12/16/23 Principal diagnosis: Reason for follow-up is sepsis and left lower extremity cellulitis Patient is a 58-year-old male with a past medical history significant for COPD also with a history of PAD with recent multiple admission to the hospital with necrotic left foot requiring revascularization recently did have a wound infection culture positive for MRSA and Pseudomonas patient did get a PICC line and was receiving IV vancomycin and cefepime at the alf presented to the hospital mental status changes elevated vancomycin trough and creatinine.Patient is status post left below the knee amputation completed 12/14/2023 by vascular surgery. On today's evaluation that is 12/16/2023,the patient denies any fever or any chills, patient is breathing comfortably on room air, the patient denies chest pain shortness of breath and no significant cough, patient denies abdominal pain, no nausea vomiting or diarrhea. Patient denies any worsening pain to the left BKA stump has been complaining of feeling slightly jittery today. Patient white count is 13.3 creatinine is 4.25 Objective - Vital Signs Vital signs: Vital Signs Temp 98.8 F 12/16/23 07:49 Pulse 73 12/16/23 07:49 Resp 17 12/16/23 07:49 BP 126/63 12/16/23 07:49 Pulse Ox 94 L 12/16/23 07:49 FiO2 21 12/14/23 08:41 Intake & Output 12/15/23 12/16/23 12/16/23 18:59 06:59 18:59 Intake Total 458 540 Output Total 850 925 Balance -392 -385 Intake: Oral 458 540 Output: Urine 850 925 Other: Voiding Method Indwelling Catheter Indwelling Catheter - Exam Middle-age male lying in bed in no distress Respiratory system unlabored breathing Left BKA stump is currently dressed Patient is awake alert oriented, mood and affect is normal - Labs CBC & Chem 7: 12/16/23 07:14 12/16/23 07:14 Labs: Abnormal Lab Results - Last 24 Hours (Table) 12/15/23 12/15/23 12/15/23 Range/Units 14:56 14:56 14:56 WBC 13.3 H (3.8-10.6) k/uL RBC 3.03 L (4.30-5.90) m/uL Hgb 7.9 L (13.0-17.5) gm/dL Hct 25.9 L (39.0-53.0) % MCHC 30.4 L (31.0-37.0) g/dL RDW 16.5 H (11.5-15.5) % Neutrophils # 10.6 H (1.3-7.7) k/uL Chloride 111 H (98-107) mmol/L Carbon Dioxide 21 L (22-30) mmol/L BUN 39 H (9-20) mg/dL Creatinine 4.39 H (0.66-1.25) mg/dL Calcium 8.2 L (8.4-10.2) mg/dL Iron 36 L (65-175) UG/DL TIBC 165 L (228-460) UG/DL Transferrin 118.0 L (204.0-354.0) mg/dL Ferritin 616.0 H (22.0-322.0) ng/mL Assessment and Plan (1) Leukocytosis Current Visit: Yes Status: Acute Code(s): D72.829 - ELEVATED WHITE BLOOD CELL COUNT, UNSPECIFIED SNOMED Code(s): 200482376 (2) Cellulitis of left leg Current Visit: No Status: Acute Code(s): L03.116 - CELLULITIS OF LEFT LOWER LIMB SNOMED Code(s): 99559506211026053 (3) Infected wound Current Visit: No Status: Acute Code(s): T14.8XXA - OTHER INJURY OF UNSPECIFIED BODY REGION, INITIAL ENCOUNTER; L08.9 - LOCAL INFECTION OF THE SKIN AND SUBCUTANEOUS TISSUE, UNSP SNOMED Code(s): 60391960 Plan: This is a telehealth visit 1patient with a chronic nonhealing wound to the left lower extremity in this patient who did have significant PAD requiring revascularization surgery now with more necrotic left foot wound left lower extremity and cellulitis with a previous culture positive for MRSA and Pseudomonas 2-patient did have a negative stress test and the patient is status post left below the knee amputation completed on 12/14/2023 3-patient to continue with daptomycin we will discontinue his cefepime, patient did have a mildly elevated white count that will be monitored closely for now Dictation was produced using [employer] software. please excuse any grammatical, word or spelling errors. Time with Patient: Less than 30
[2023-12-17 09:09] LABS: African American GFR (CKD) 16 (>60 ml/min/1.73 sqM); Anion Gap 6 mmol/L; Blood Urea Nitrogen 39 mg/dL (9-20); Calcium 7.7 mg/dL (8.4-10.2); Carbon Dioxide 20 mmol/L (22-30); Chloride 112 mmol/L (98-107); Glucose 73 mg/dL (74-99); Magnesium 1.8 mg/dL (1.6-2.3); Non-African American GFR(CKD) 14 (>60 ml/min/1.73 sqM); Potassium 4.4 mmol/L (3.5-5.1); Sodium 138 mmol/L (137-145)
[2023-12-17 09:11] LABS: Anisocytosis Slight; Basophils % (A) 0 %; Eosinophils # (A) 0.5 k/uL (0-0.7); Eosinophils % (A) 4 %; HGB 7.6 gm/dL (13.0-17.5); Hypochromasia Marked; Lymphocytes # (A) 0.8 k/uL (1.0-4.8); Lymphocytes % (A) 6 %; MCH 27.2 pg (25.0-35.0); MCHC 31.9 g/dL (31.0-37.0); MCV 85.3 fL (80.0-100.0); Monocytes # (A) 0.9 k/uL (0-1.0); Monocytes % (A) 7 %; Neutrophils # (A) 10.8 k/uL (1.3-7.7); Neutrophils % (A) 82 %; Platelet Count 319 k/uL (150-450); RBC 2.81 m/uL (4.30-5.90); RDW 16.7 % (11.5-15.5); WBC 13.1 k/uL (3.8-10.6)
[2023-12-17] MEDS: FAMOTIDINE 20 MG TAB PO SCH (09:36)
--- NOTE | 2023-12-17 09:54 | P.PN ---
Subjective Progress Note Date: 12/16/23 58 years old male with past medical history of multiple medical problems, he was transferred from [facility] for altered mental status. He is a known case of left leg cellulitis and wounds secondary to MRSA. Patient was on IV vancomycin. Also patient was evidence of acute kidney injury with creatinine went up from 2.1 on admission today is 4.01. Baseline is around 0.7. Has been followed closely by sales lead and he was started on gentle hydration and sodium bicarb pills Renal ultrasound showing possible solid lytic lesion on the left kidney 3.4 x 2.6 x 2.9 cm Patient was shown to have peripheral vascular disease with chronic critical left lower extremity ischemia s/p left common femoral and endarterectomy and left femoral-popliteal bypass Vital signs stable and patient is afebrile Labs reviewed and look stable Hemoglobin is 9.5 Creatinine 4.01 12/15/2023 -- patient seen and evaluated in room at bedside; has been afebrile, patient is breathing comfortably and is currently on 8 L nasal cannula oxygen, patient denies having any significant cough no chest pain shortness of breath, patient denies nausea vomiting or diarrhea and no abdominal pain and has been complaining of excruciating pain pain to the left BKA stump Patient white count is 11.8, creatinine is 4.32 patient with a chronic nonhealing wound to the left lower extremity in this patient who did have significant PAD requiring revascularization surgery now with more necrotic left foot wound left lower extremity and cellulitis with a previous culture positive for MRSA and Pseudomonas -patient did have a negative stress test t and the patient is status post left below the knee amputation completed on 12/14/2023 we will keep the patient on daptomycin and cefepime perioperatively but no need for antibiotics on discharge 12/16/2023 Patient is seen and evaluated in room at bedside; discussed with nursing staff; no specific complaints reported; patient's family is at bedside this morning; reports improved pain control with increasing Neurontin Vital signs are reviewed and stable with temperature of 98.7, pulse 67, respiration 18 and blood pressure 129/63 with O2 saturation 94% Blood work reveals WBC of 13.3, hemoglobin of 7.9, platelet count of 396, sodium of 139, potassium 4.7, BUNs/creatinine of 37/4.25 Patient remains on IV antibiotics in form of daptomycin and cefepime. ID on board and recommending to discontinue cefepime and continue to monitor CBC closely Objective - Vital Signs Vital signs: Vital Signs Temp 98.8 F 12/16/23 07:49 Pulse 73 12/16/23 07:49 Resp 17 12/16/23 07:49 BP 126/63 12/16/23 07:49 Pulse Ox 94 L 12/16/23 07:49 FiO2 21 12/14/23 08:41 Intake & Output 12/15/23 12/16/23 12/16/23 18:59 06:59 18:59 Intake Total 458 540 Output Total 850 925 Balance -392 -385 Intake: Oral 458 540 Output: Urine 850 925 Other: Voiding Method Indwelling Catheter Indwelling Catheter - Exam GENERAL: The patient is alert and oriented x3, not in any acute distress. Well developed, well nourished. HEENT: Pupils are round and equally reacting to light. EOMI. No scleral icterus. No conjunctival pallor. Normocephalic, atraumatic. No pharyngeal erythema. No thyromegaly. CARDIOVASCULAR: S1 and S2 present. No murmurs, rubs, or gallops. PULMONARY: Chest is clear to auscultation, no wheezing , no crackles. ABDOMEN: Soft, nontender, nondistended, normoactive bowel sounds. No palpable organomegaly. MUSCULOSKELETAL: No joint swelling or deformity. -EXTREMITIES: No cyanosis, clubbing, or pedal edema. Left lower extremity cellulitis, and gangrene, with dressing in place NEUROLOGICAL: Gross neurological examination did not reveal any focal deficits. SKIN: No rashes. no petechiae. - Labs CBC & Chem 7: 12/17/23 07:57 12/17/23 07:57 Labs: Abnormal Lab Results - Last 24 Hours (Table) 12/15/23 12/15/23 12/15/23 Range/Units 14:56 14:56 14:56 WBC 13.3 H (3.8-10.6) k/uL RBC 3.03 L (4.30-5.90) m/uL Hgb 7.9 L (13.0-17.5) gm/dL Hct 25.9 L (39.0-53.0) % MCHC 30.4 L (31.0-37.0) g/dL RDW 16.5 H (11.5-15.5) % Neutrophils # 10.6 H (1.3-7.7) k/uL Chloride 111 H (98-107) mmol/L Carbon Dioxide 21 L (22-30) mmol/L BUN 39 H (9-20) mg/dL Creatinine 4.39 H (0.66-1.25) mg/dL Calcium 8.2 L (8.4-10.2) mg/dL Iron 36 L (65-175) UG/DL TIBC 165 L (228-460) UG/DL Transferrin 118.0 L (204.0-354.0) mg/dL Ferritin 616.0 H (22.0-322.0) ng/mL 12/16/23 Range/Units 07:14 WBC (3.8-10.6) k/uL RBC (4.30-5.90) m/uL Hgb (13.0-17.5) gm/dL Hct (39.0-53.0) % MCHC (31.0-37.0) g/dL RDW (11.5-15.5) % Neutrophils # (1.3-7.7) k/uL Chloride 111 H (98-107) mmol/L Carbon Dioxide (22-30) mmol/L BUN 37 H (9-20) mg/dL Creatinine 4.25 H (0.66-1.25) mg/dL Calcium 8.2 L (8.4-10.2) mg/dL Iron (65-175) UG/DL TIBC (228-460) UG/DL Transferrin (204.0-354.0) mg/dL Ferritin (22.0-322.0) ng/mL Assessment and Plan Assessment: Assessment and Plan Assessment: Left lower extremity cellulitis and wound infection and gangrene secondary to ischemic peripheral artery disease. Plan for BKA on Sunday peripheral vascular disease with chronic critical left lower extremity ischemia s/p left common femoral and endarterectomy and left femoral-popliteal bypass Acute kidney injury Left kidney lucency suspicious for kidney mass Metabolic encephalopathy improving left kidney lytic lesion 3.4 x 2.6 x 2.9 cm Acute metabolic acidemia COPD no exacerbation Nicotine dependence Anxiety and depression, not an active issue Plan: Stress test per cardiology team Discontinue IV vancomycin Continue with antibiotic as per ID team , currently on IV cefepime Follow-up culture result Hold Xarelto and continue with heparin drip Continue gentle hydration and sodium bicarb Plan for left BKA on Wednesday 12/13 Patient is on aspirin 81 mg which is on Several consultants on the case including ID team, sales lead, vascular surgery and occupational medicine specialist Labs and medication were reviewed.. Continue same treatment. Continue with symptomatic treatment. Resume home medication. Monitor labs and vitals. DVT and GI prophylaxis. Further recommendations as per clinical course of the patient DVT prophylaxis: heparin GI Prophylaxis: Pepcid PT/OT: Pending Prognosis is guarded
--- NOTE | 2023-12-17 11:40 | P.PN ---
Subjective Progress Note Date: 12/17/23 Principal diagnosis: Left lower extremity nonhealing wounds, gangrene foot Patient is seen and examined today as a follow-up. He is postop day #3 for left below the knee amputation. Comfort prosthetics was here this morning and applied stump thermoforming machine operator and rigid dressing. Patient currently is somewhat confused. He is alert and knows who policy writer typist is, however states he feels like he should be going to work. He was reoriented that he was in the hospital and he stated yes he knew he was at [facility]. Patient is also ataxic with his upper extremities. Nursing reports he has had some confusion through the weekend and medical team was notified and a brain CT was ordered yesterday. Brain CT with no acute changes. Nursing also reported patient had some coughing after drinkin g some water yesterday although he was able to swallow his pills. Patient is currently afebrile. He continues with acute kidney injury and is being followed by nephrology. Hemoglobin 7.6. No reported heavy surgical bleeding. He received parental iron yesterday. Objective - Vital Signs Vital signs: Vital Signs Temp 98.9 F 12/17/23 03:46 Pulse 69 12/17/23 03:46 Resp 16 12/17/23 03:46 BP 126/65 12/17/23 03:46 Pulse Ox 93 L 12/17/23 08:25 FiO2 21 12/14/23 08:41 Intake & Output 12/16/23 12/17/23 12/17/23 18:59 06:59 18:59 Intake Total 180 0 Output Total 1400 900 Balance -1220 -900 Intake: Oral 180 0 Output: Urine 1400 900 Other: Voiding Method Indwelling Catheter Indwelling Catheter - Exam General appearance: The patient is alert, oriented to self and place, appears in no acute distress. HET: Head is normocephalic and atraumatic. Pupils are equal and reactive. Neck: Supple. Abdomen: Soft, nondistended. Extremities: Left lower extremity BKA with stump thermoforming machine operator and rigid dressing in place. Neurological: Patient with some confusion. Ataxic with upper extremities. - Labs CBC & Chem 7: 12/17/23 07:57 12/17/23 07:57 Labs: Abnormal Lab Results - Last 24 Hours (Table) 06/09/24 06/10/24 06/10/24 Range/Units 07:14 07:57 07:57 WBC 13.3 H 13.1 H (3.8-10.6) k/uL RBC 2.99 L 2.81 L (4.30-5.90) m/uL Hgb 7.8 L 7.6 L (13.0-17.5) gm/dL Hct 25.4 L 24.0 L (39.0-53.0) % MCHC 30.5 L (31.0-37.0) g/dL RDW 16.7 H 16.7 H (11.5-15.5) % Neutrophils # 10.8 H (1.3-7.7) k/uL Neutrophils # (Manual) 10.24 H (1.3-7.7) k/uL Lymphocytes # 0.8 L (1.0-4.8) k/uL Metamyelocytes # (Man) 0.13 H (0) k/uL Myelocytes # (Manual) 0.27 H (0) k/uL Chloride 112 H (98-107) mmol/L Carbon Dioxide 20 L (22-30) mmol/L BUN 39 H (9-20) mg/dL Creatinine 4.34 H (0.66-1.25) mg/dL Glucose 73 L (74-99) mg/dL Calcium 7.7 L (8.4-10.2) mg/dL Assessment and Plan Assessment: 1. 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 History of peripheral arterial disease with critical limb ischemia of the left lower extremity status post left common femoral endarterectomy and femoral to below-knee popliteal bypass 3. Nonhealing left lower extremity wounds 4. Altered mental status changes 5. Leukocytosis 6. Chronic anemia 7. Recent wound culture with MRSA and Pseudomonas on outpatient IV antibiotics 8. Acute renal failure 9. Chest pain Plan: 1. Keep stump thermoforming machine operator and rigid dressing in place along with knee immobilizer 2. Daily dressing change with ABD pad and Kerlix 3. Continue Xarelto 2.5 mg twice daily 4. PT and OT on consultation 5. Antibiotics per recommendations from infectious disease 6. Consider possible consultation to neurology for altered mental status changes and ataxia, defer to medical team 7. Rest of medical management per primary medical team Thank you for this consultation, we will continue to follow. The impression and plan of care has been dictated as directed. I performed a history and examination of this patient, discussed the same with the dictator. I agree with the dictator's note ,documented as a scribe. Any additional findings or plans will be noted.
--- NOTE | 2023-12-17 14:10 | P.PN ---
Subjective patient is seen for follow-up for acute kidney injury secondary to vancomycin toxicity. Renal function is stable. Maintained on IV fluids. Serum creatinine at 4.3 mg/dL which is quite stable. 24 hour urine output at 2.3 L. Objective - Vital Signs Vital signs: Vital Signs Temp 98.3 F 12/17/23 08:10 Pulse 81 12/17/23 08:10 Resp 17 12/17/23 08:10 BP 125/95 12/17/23 08:10 Pulse Ox 93 L 12/17/23 08:25 FiO2 21 12/14/23 08:41 Intake & Output 12/16/23 12/17/23 12/17/23 18:59 06:59 18:59 Intake Total 180 0 540 Output Total 1400 900 450 Balance -1220 -900 90 Intake: Oral 180 0 540 Output: Urine 1400 900 450 Other: Voiding Method Indwelling Catheter Indwelling Catheter Indwelling Catheter - Exam patient is awake, comfortable, no acute distress. Examination of the heart S1 and S2 Examination of the lungs bilateral breath sounds are heard Abdomen is soft nontender Examination of lower extremities shows no significant edema. BIOLOGIST AIDE exam grossly intact - Labs CBC & Chem 7: 12/17/23 07:57 12/17/23 07:57 Labs: Abnormal Lab Results - Last 24 Hours (Table) 12/17/23 12/17/23 Range/Units 07:57 07:57 WBC 13.1 H (3.8-10.6) k/uL RBC 2.81 L (4.30-5.90) m/uL Hgb 7.6 L (13.0-17.5) gm/dL Hct 24.0 L (39.0-53.0) % RDW 16.7 H (11.5-15.5) % Neutrophils # 10.8 H (1.3-7.7) k/uL Lymphocytes # 0.8 L (1.0-4.8) k/uL Chloride 112 H (98-107) mmol/L Carbon Dioxide 20 L (22-30) mmol/L BUN 39 H (9-20) mg/dL Creatinine 4.34 H (0.66-1.25) mg/dL Glucose 73 L (74-99) mg/dL Calcium 7.7 L (8.4-10.2) mg/dL Assessment and Plan Assessment: 1. Acute kidney injury secondary to ATN secondary to vancomycin toxicity. Creatinine stable at 4.3 today. Baseline creatinine 0.75 from November 2023. UA with 1+ protein. No hydronephrosis noted on kidney ultrasound. 2. Peripheral arterial disease with left foot gangrene. Underwent femoropopliteal bypass in September 2023. Status post left BKA December 14, 2023. Vascu lar surgery and infectious disease following. 3. Chronic systolic CHF with ejection fraction of 40 to 45%. 4. Metabolic acidosis secondary to acute kidney injury. Status post bicarb drip. On oral bicarb. Improved. 5. Left kidney lesion. Seen by urology. Further workup outpatient. 6. Acute blood loss anemia status post blood transfusion this admission. Improved. Mild iron deficiency noted. status post 1 dose of IV iron. Plan: continue to monitor closely for need for renal replacement therapy. So far renal function has been fairly stable. Continue to avoid any nephrotoxic agents. Repeat labs in a.m.
--- NOTE | 2023-12-17 15:00 | P.PN ---
Subjective Progress Note Date: 12/17/23 Principal diagnosis: Reason for follow-up is sepsis and left lower extremity cellulitis Patient is a 58-year-old male with a past medical history significant for COPD also with a history of PAD with recent multiple admission to the hospital with necrotic left foot requiring revascularization recently did have a wound infection culture positive for MRSA and Pseudomonas patient did get a PICC line and was receiving IV vancomycin and cefepime at the snf presented to the hospital mental status changes elevated vancomycin trough and creatinine.Patient is status post left below the knee amputation completed 12/14/2023 by vascular surgery. On today's evaluation that is 12/17/2023,the patient remains to be afebrile, patient is on room air not requiring supplemental oxygen patient seem to have developed some mental status changes confusion and ataxia no focal weakness has been reported no vomiting or diarrhea. Patient did have iron of 13.1 creatinine is 4.34 blood urine culture has been negative Objective - Vital Signs Vital signs: Vital Signs Temp 98.9 F 12/17/23 03:46 Pulse 69 12/17/23 03:46 Resp 16 12/17/23 03:46 BP 126/65 12/17/23 03:46 Pulse Ox 93 L 12/17/23 08:25 FiO2 21 12/14/23 08:41 Intake & Output 12/16/23 12/17/23 12/17/23 18:59 06:59 18:59 Intake Total 180 0 Output Total 1400 900 Balance -1220 -900 Intake: Oral 180 0 Output: Urine 1400 900 Other: Voiding Method Indwelling Catheter Indwelling Catheter - Exam Middle-age male lying in bed in no distress Respiratory system unlabored breathing, decreased breath sound the base Left BKA stump is currently dressed Patient is awake slightly confused ataxia reported by the nursing staff Exam completed with help of BOW TACKER - Labs CBC & Chem 7: 12/17/23 07:57 12/17/23 07:57 Labs: Abnormal Lab Results - Last 24 Hours (Table) 12/16/23 12/17/23 12/17/23 Range/Units 07:14 07:57 07:57 WBC 13.3 H 13.1 H (3.8-10.6) k/uL RBC 2.99 L 2.81 L (4.30-5.90) m/uL Hgb 7.8 L 7.6 L (13.0-17.5) gm/dL Hct 25.4 L 24.0 L (39.0-53.0) % MCHC 30.5 L (31.0-37.0) g/dL RDW 16.7 H 16.7 H (11.5-15.5) % Neutrophils # 10.8 H (1.3-7.7) k/uL Neutrophils # (Manual) 10.24 H (1.3-7.7) k/uL Lymphocytes # 0.8 L (1.0-4.8) k/uL Metamyelocytes # (Man) 0.13 H (0) k/uL Myelocytes # (Manual) 0.27 H (0) k/uL Chloride 112 H (98-107) mmol/L Carbon Dioxide 20 L (22-30) mmol/L BUN 39 H (9-20) mg/dL Creatinine 4.34 H (0.66-1.25) mg/dL Glucose 73 L (74-99) mg/dL Calcium 7.7 L (8.4-10.2) mg/dL Assessment and Plan (1) Leukocytosis Current Visit: Yes Status: Acute Code(s): D72.829 - ELEVATED WHITE BLOOD CELL COUNT, UNSPECIFIED SNOMED Code(s): 881669527 (2) Cellulitis of left leg Current Visit: No Status: Acute Code(s): L03.116 - CELLULITIS OF LEFT LOWER LIMB SNOMED Code(s): 88704110753726583 (3) Infected wound Current Visit: No Status: Acute Code(s): T14.8XXA - OTHER INJURY OF UNSPECIFIED BODY REGION, INITIAL ENCOUNTER; L08.9 - LOCAL INFECTION OF THE SKIN AND SUBCUTANEOUS TISSUE, UNSP SNOMED Code(s): 12082586 Plan: This is a telehealth visit 1patient with a chronic nonhealing wound to the left lower extremity in this patient who did have significant PAD requiring revascularization surgery now with more necrotic left foot wound left lower extremity and cellulitis with a previous culture positive for MRSA and Pseudomonas 2-patient did have a negative stress test and the patient is status post left below the knee amputation completed on 12/14/2023 3-patient has developed significant mental status changes and neurological symptoms CT has been ordered patient is on daptomycin and cefepime was discontinued yesterday Dictation was produced using [employer] software. please excuse any grammatical, word or spelling errors. Time with Patient: Less than 30
[2023-12-18] MEDS ORDERED: SENNOSIDES 8.6 MG TAB PO PRN (00:30)
--- NOTE | 2023-12-18 00:30 | P.PN ---
Subjective Progress Note Date: 12/17/23 58 years old male with past medical history of multiple medical problems, he was transferred from [facility] for altered mental status. He is a known case of left leg cellulitis and wounds secondary to MRSA. Patient was on IV vancomycin. Also patient was evidence of acute kidney injury with creatinine went up from 2.1 on admission today is 4.01. Baseline is around 0.7. Has been followed closely by echometer engineer and he was started on gentle hydration and sodium bicarb pills Renal ultrasound showing possible solid lytic lesion on the left kidney 3.4 x 2.6 x 2.9 cm Patient was shown to have peripheral vascular disease with chronic critical left lower extremity ischemia s/p left common femoral and endarterectomy and left femoral-popliteal bypass Vital signs stable and patient is afebrile Labs reviewed and look stable Hemoglobin is 9.5 Creatinine 4.01 12/15/2023 -- patient seen and evaluated in room at bedside; has been afebrile, patient is breathing comfortably and is currently on 8 L nasal cannula oxygen, patient denies having any significant cough no chest pain shortness of breath, patient denies nausea vomiting or diarrhea and no abdominal pain and has been complaining of excruciating pain pain to the left BKA stump Patient white count is 11.8, creatinine is 4.32 patient with a chronic nonhealing wound to the left lower extremity in this patient who did have significant PAD requiring revascularization surgery now with more necrotic left foot wound left lower extremity and cellulitis with a previous culture positive for MRSA and Pseudomonas -patient did have a negative stress test t and the patient is status post left below the knee amputation completed on 12/14/2023 we will keep the patient on daptomycin and cefepime perioperatively but no need for antibiotics on discharge 12/16/2023 Patient is seen and evaluated in room at bedside; discussed with nursing staff; no specific complaints reported; patient's family is at bedside this morning; reports improved pain control with increasing Neurontin Vital signs are reviewed and stable with temperature of 98.7, pulse 67, respiration 18 and blood pressure 129/63 with O2 saturation 94% Blood work reveals WBC of 13.3, hemoglobin of 7.9, platelet count of 396, sodium of 139, potassium 4.7, BUNs/creatinine of 37/4.25 Patient remains on IV antibiotics in form of daptomycin and cefepime. ID on board and recommending to discontinue cefepime and continue to monitor CBC closely 12/17/2023 Patient is status post left BKA on 12/14/2023. patient is currently in bed. Awake alert and oriented. Mentation did improve compared to yesterday. Patient's mother is at bedside. Afebrile. No complaints of nausea or vomiting. No cough or sputum production. Patient is being continued on antibiotics daptomycin and is also on anticoagulation with Xarelto. IV hydration increased with normal saline at 75 cc/h. Gabapentin dose decreased to 300 mg twice daily. Patient is also on Percocet 7.5 every 4 as needed for pain. Nephrology and ID is on board. Urine cultures and blood cultures negative. Laboratory data showed WBC 13.1 hemoglobin 7.6 and platelets 319, sodium 138 potassium 4.4 chloride 112 bicarb is 20 BUN 39 and creatinine 4.34. Current medications reviewed. Objective - Vital Signs Vital signs: Vital Signs Temp 97.6 F 12/17/23 19:30 Pulse 68 12/17/23 19:30 Resp 17 12/17/23 19:30 BP 105/54 12/17/23 19:30 Pulse Ox 94 L 12/17/23 19:30 FiO2 21 12/14/23 08:41 Intake & Output 12/17/23 12/17/23 12/18/23 06:59 18:59 06:59 Intake Total 0 896 Output Total 900 450 480 Balance -900 446 -480 Intake: Oral 0 896 Output: Urine 900 450 480 Other: Voiding Method Indwelling Catheter Indwelling Catheter Indwelling Catheter - Exam - Exam GENERAL: The patient is alert and oriented x2-3, not in any acute distress. Well developed, well nourished. HEENT: Pupils are round and equally reacting to light. EOMI. No scleral icterus. No conjunctival pallor. Normocephalic, atraumatic. No pharyngeal erythema. No thyromegaly. CARDIOVASCULAR: S1 and S2 present. No murmurs, rubs, or gallops. PULMONARY: Chest is clear to auscultation, no wheezing , no crackles. ABDOMEN: Soft, nontender, nondistended, normoactive bowel sounds. No palpable organomegaly. MUSCULOSKELETAL: No joint swelling or deformity. -EXTREMITIES: No cyanosis, clubbing, or pedal edema. Left lower extremity stump wound dressing in place NEUROLOGICAL: Gross neurological examination did not reveal any focal deficits. SKIN: No rashes. no petechiae. - Labs CBC & Chem 7: 12/17/23 07:57 12/17/23 07:57 Labs: Abnormal Lab Results - Last 24 Hours (Table) 12/17/23 12/17/23 Range/Units 07:57 07:57 WBC 13.1 H (3.8-10.6) k/uL RBC 2.81 L (4.30-5.90) m/uL Hgb 7.6 L (13.0-17.5) gm/dL Hct 24.0 L (39.0-53.0) % RDW 16.7 H (11.5-15.5) % Neutrophils # 10.8 H (1.3-7.7) k/uL Lymphocytes # 0.8 L (1.0-4.8) k/uL Chloride 112 H (98-107) mmol/L Carbon Dioxide 20 L (22-30) mmol/L BUN 39 H (9-20) mg/dL Creatinine 4.34 H (0.66-1.25) mg/dL Glucose 73 L (74-99) mg/dL Calcium 7.7 L (8.4-10.2) mg/dL Assessment and Plan Assessment: Left lower extremity cellulitis and wound infection and gangrene secondary to ischemic peripheral artery disease. Status post left BKA on 12/14/2023 peripheral vascular disease with chronic critical left lower extremity ischemia s/p left common femoral and endarterectomy and left femoral-popliteal bypass Acute kidney injury due to ATN and vancomycin toxicity. Left kidney lucency suspicious for kidney mass Metabolic encephalopathy/delirium. Improving Left kidney lytic lesion 3.4 x 2.6 x 2.9 cm Acute metabolic acidosis due to DAYANARA. COPD no exacerbation Nicotine dependence Anxiety and depression, not an active issue DVT and GI prophylaxis. Plan: Patient is being continued on antibiotics daptomycin. Continues IV hydration with normal saline creatinine level 4.34 today. Follow-up culture result negative so far. Patient was initially on heparin drip. Started back on Xarelto 2.5 mg twice daily. Continue gentle hydration and sodium bicarb Plan for left BKA on Wednesday 12/13 Patient is on aspirin 81 mg which is on Patient is being followed by ID team, echometer engineer, vascular surgery and set designer Labs and medication were reviewed. DVT prophylaxis: heparin GI Prophylaxis: Pepcid PT/OT: Pending Limit narcotic pain medication use. Prognosis is guarded Time with Patient: Greater than 30
[2023-12-18 07:41] LABS: Anisocytosis Slight; Basophils % (A) 0 %; Eosinophils # (A) 0.8 k/uL (0-0.7); Eosinophils % (A) 7 %; HCT 23.6 % (39.0-53.0); HGB 7.3 gm/dL (13.0-17.5); Hypochromasia Marked; Lymphocytes % (A) 9 %; MCH 26.5 pg (25.0-35.0); MCHC 30.9 g/dL (31.0-37.0); MCV 85.9 fL (80.0-100.0); Monocytes # (A) 0.9 k/uL (0-1.0); Monocytes % (A) 8 %; Neutrophils # (A) 8.6 k/uL (1.3-7.7); Neutrophils % (A) 75 %; Platelet Count 298 k/uL (150-450); RBC 2.75 m/uL (4.30-5.90); RDW 16.4 % (11.5-15.5); WBC 11.5 k/uL (3.8-10.6)
[2023-12-18 08:12] LABS: African American GFR (CKD) 17 (>60 ml/min/1.73 sqM); Anion Gap 6 mmol/L; Blood Urea Nitrogen 39 mg/dL (9-20); Calcium 7.4 mg/dL (8.4-10.2); Carbon Dioxide 20 mmol/L (22-30); Chloride 111 mmol/L (98-107); Glucose 75 mg/dL (74-99); Non-African American GFR(CKD) 14 (>60 ml/min/1.73 sqM); Potassium 4.1 mmol/L (3.5-5.1); Sodium 137 mmol/L (137-145)
--- NOTE | 2023-12-18 08:36 | P.PN ---
Subjective Progress Note Date: 12/18/23 Principal diagnosis: Left lower extremity nonhealing wounds, gangrene foot Patient is seen and examined today as a follow-up. neurological and mental status changes from yesterday have resolved. Patient is alert and oriented this morning. He is afebrile. Pain is well-managed. Knee immobilizer in place. Objective - Vital Signs Vital signs: Vital Signs Temp 98.4 F 12/18/23 03:15 Pulse 64 12/18/23 03:15 Resp 18 12/18/23 03:15 BP 113/63 12/18/23 03:15 Pulse Ox 93 L 12/18/23 03:15 FiO2 21 12/14/23 08:41 Intake & Output 12/17/23 12/18/23 12/18/23 18:59 06:59 18:59 Intake Total 896 10 Output Total 450 930 Balance 446 -920 Intake: IV 10 Invasive Line 2 10 Oral 896 Output: Urine 450 930 Other: Voiding Method Indwelling Catheter Indwelling Catheter - Exam General appearance: The patient is alert, oriented to self and place, appears in no acute distress. HET: Head is normocephalic and atraumatic. Pupils are equal and reactive. Neck: Supple. Abdomen: Soft, nondistended. Extremities: Left lower extremity BKA with stump bale breaker operator and rigid dressing in place. Dressing changed with serosanguineous drainage present. Anmol drain removed. Incision well-approximated with sutures there is previous wound proximal to wound medial aspect of leg. There is some noted contracture of the left knee, but patient is able to straighten. Neurological: Alert and oriented. Good muscle tone. - Labs CBC & Chem 7: 12/18/23 06:42 12/18/23 06:42 Labs: Abnormal Lab Results - Last 24 Hours (Table) 12/17/23 12/17/23 12/18/23 Range/Units 07:57 07:57 06:42 WBC 13.1 H 11.5 H (3.8-10.6) k/uL RBC 2.81 L 2.75 L (4.30-5.90) m/uL Hgb 7.6 L 7.3 L (13.0-17.5) gm/dL Hct 24.0 L 23.6 L (39.0-53.0) % MCHC 30.9 L (31.0-37.0) g/dL RDW 16.7 H 16.4 H (11.5-15.5) % Neutrophils # 10.8 H 8.6 H (1.3-7.7) k/uL Lymphocytes # 0.8 L (1.0-4.8) k/uL Eosinophils # 0.8 H (0-0.7) k/uL Chloride 112 H (98-107) mmol/L Carbon Dioxide 20 L (22-30) mmol/L BUN 39 H (9-20) mg/dL Creatinine 4.34 H (0.66-1.25) mg/dL Glucose 73 L (74-99) mg/dL Calcium 7.7 L (8.4-10.2) mg/dL Assessment and Plan Assessment: 1. 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 History of peripheral arterial disease with critical limb ischemia of the left lower extremity status post left common femoral endarterectomy and femoral to below-knee popliteal bypass 3. Nonhealing left lower extremity wounds 4. Altered mental status changes 5. Leukocytosis 6. Chronic anemia 7. Recent wound culture with MRSA and Pseudomonas on outpatient IV antibiotics 8. Acute renal failure 9. Chest pain Plan: 1. Keep stump bale breaker operator and rigid dressing in place along with knee immobilizer 2. Daily dressing change with 4 x 4 and Kerlix 3. Continue Xarelto 2.5 mg twice daily 4. PT and OT on consultation, discussed with PT to work with patient for left knee contracture 5. Antibiotics per recommendations from infectious disease 6. Rest of medical management per primary medical team Thank you for this consultation, patient is cleared from vascular surgery for discharge to subacute rehab. The impression and plan of care has been dictated as directed. Dr. Payne I performed a history and examination of this patient, discussed the same with the dictator. I agree with the dictator's note ,documented as a scribe. Any additional findings or plans will be noted.
--- NOTE | 2023-12-18 12:28 | P.PN ---
Subjective patient is seen for follow-up for acute kidney injury secondary to vancomycin toxicity. Renal function is stable. Maintained on IV fluids. Serum creatinine at 4.2 mg/dL which is quite stable. 24 hour urine output at 1.3 L. Objective - Vital Signs Vital signs: Vital Signs Temp 98.4 F 12/18/23 11:58 Pulse 60 12/18/23 11:58 Resp 18 12/18/23 11:58 BP 109/56 12/18/23 11:58 Pulse Ox 94 L 12/18/23 11:58 FiO2 21 12/14/23 08:41 Intake & Output 12/17/23 12/18/23 12/18/23 18:59 06:59 18:59 Intake Total 896 10 10 Output Total 450 930 Balance 446 -920 10 Intake: IV 10 10 Invasive Line 2 10 10 Oral 896 Output: Urine 450 930 Other: Voiding Method Indwelling Catheter Indwelling Catheter Indwelling Catheter - Exam patient is awake, comfortable, no acute distress. Examination of the heart S1 and S2 Examination of the lungs bilateral breath sounds are heard Abdomen is soft nontender Examination of lower extremities shows no significant edema. MAKE READY WORKER exam grossly intact - Labs CBC & Chem 7: 12/18/23 06:42 12/18/23 06:42 Labs: Abnormal Lab Results - Last 24 Hours (Table) 12/18/23 12/18/23 Range/Units 06:42 06:42 WBC 11.5 H (3.8-10.6) k/uL RBC 2.75 L (4.30-5.90) m/uL Hgb 7.3 L (13.0-17.5) gm/dL Hct 23.6 L (39.0-53.0) % MCHC 30.9 L (31.0-37.0) g/dL RDW 16.4 H (11.5-15.5) % Neutrophils # 8.6 H (1.3-7.7) k/uL Eosinophils # 0.8 H (0-0.7) k/uL Chloride 111 H (98-107) mmol/L Carbon Dioxide 20 L (22-30) mmol/L BUN 39 H (9-20) mg/dL Creatinine 4.20 H (0.66-1.25) mg/dL Calcium 7.4 L (8.4-10.2) mg/dL Assessment and Plan Assessment: 1. Acute kidney injury secondary to ATN secondary to vancomycin toxicity. Creatinine stable at 4.2 today. Baseline creatinine 0.75 from November 2023. UA with 1+ protein. No hydronephrosis noted on kidney ultrasound. 2. Peripheral arterial disease with left foot gangrene. Underwent femoropopliteal bypass in September 2023. Status post left BKA December 14, 2023. Vascular surgery and infectious disease following. 3. Chronic systolic CHF with ejection fraction of 40 to 45%. 4. Metabolic acidosis secondary to acute kidney injury. Status post bicarb drip. On oral bicarb. Improved. 5. Left kidney lesion. Seen by urology. Further workup outpatient. 6. Acute blood loss anemia status post blood transfusion this admission. Improved. Mild iron deficiency noted. status post 1 dose of IV iron. Plan: continue to monitor closely for need for renal replacement therapy. So far renal function has been fairly stable. no indication for renal replacement therapy today. Continue to avoid any nephrotoxic agents. Repeat labs in a.m.
--- NOTE | 2023-12-18 14:29 | P.PN ---
Subjective Progress Note Date: 12/18/23 Principal diagnosis: Reason for follow-up is sepsis and left lower extremity cellulitis Patient is a 58-year-old male with a past medical history significant for COPD also with a history of PAD with recent multiple admission to the hospital with necrotic left foot requiring revascularization recently did have a wound infection culture positive for MRSA and Pseudomonas patient did get a PICC line and was receiving IV vancomycin and cefepime at the longterm presented to the hospital mental status changes elevated vancomycin trough and creatinine.Patient is status post left below the knee amputation completed 12/14/2023 by vascular surgery. On today's evaluation that is 12/18/2023, the patient continues to be afebrile, the patient is on room air and breathing comfortably, the Pt denies having any chest pain or cough, the patient denies having any abdominal pain no vomiting or any diarrhea patient did have improvement in his mentation and seem to be more appropriate today. Patient white count is down to 11.5 creatinine is 4.20 blood culture negative Objective - Vital Signs Vital signs: Vital Signs Temp 98.4 F 12/18/23 03:15 Pulse 64 12/18/23 03:15 Resp 18 12/18/23 03:15 BP 113/63 12/18/23 03:15 Pulse Ox 93 L 12/18/23 03:15 FiO2 21 12/14/23 08:41 Intake & Output 12/17/23 12/18/23 12/18/23 18:59 06:59 18:59 Intake Total 896 10 Output Total 450 930 Balance 446 -920 Intake: IV 10 Invasive Line 2 10 Oral 896 Output: Urine 450 930 Other: Voiding Method Indwelling Catheter Indwelling Catheter - Exam Middle-age male lying in bed in no distress Respiratory system unlabored breathing, decreased breath sound the base Left BKA stump is currently dressed Patient is awake slightly confused ataxia reported by the nursing staff Exam completed with help of RETARDER OPERATOR - Labs CBC & Chem 7: 12/18/23 06:42 12/18/23 06:42 Labs: Abnormal Lab Results - Last 24 Hours (Table) 12/18/23 12/18/23 Range/Units 06:42 06:42 WBC 11.5 H (3.8-10.6) k/uL RBC 2.75 L (4.30-5.90) m/uL Hgb 7.3 L (13.0-17.5) gm/dL Hct 23.6 L (39.0-53.0) % MCHC 30.9 L (31.0-37.0) g/dL RDW 16.4 H (11.5-15.5) % Neutrophils # 8.6 H (1.3-7.7) k/uL Eosinophils # 0.8 H (0-0.7) k/uL Chloride 111 H (98-107) mmol/L Carbon Dioxide 20 L (22-30) mmol/L BUN 39 H (9-20) mg/dL Creatinine 4.20 H (0.66-1.25) mg/dL Calcium 7.4 L (8.4-10.2) mg/dL Assessment and Plan (1) Leukocytosis Current Visit: Yes Status: Acute Code(s): D72.829 - ELEVATED WHITE BLOOD C ELL COUNT, UNSPECIFIED SNOMED Code(s): 237120044 (2) Cellulitis of left leg Current Visit: No Status: Acute Code(s): L03.116 - CELLULITIS OF LEFT LOWER LIMB SNOMED Code(s): 63670167325303956 (3) Infected wound Current Visit: No Status: Acute Code(s): T14.8XXA - OTHER INJURY OF UNSPECIFIED BODY REGION, INITIAL ENCOUNTER; L08.9 - LOCAL INFECTION OF THE SKIN AND SUBCUTANEOUS TISSUE, UNSP SNOMED Code(s): 96182358 Plan: This is a telehealth visit 1patient with a chronic nonhealing wound to the left lower extremity in this patient who did have significant PAD requiring revascularization surgery now with more necrotic left foot wound left lower extremity and cellulitis with a previous culture positive for MRSA and Pseudomonas 2-patient did have a negative stress test and the patient is status post left below the knee amputation completed on 12/14/2023 3-patient did have improvement in his mentation remains to be afebrile white count is trending down currently on daptomycin however no plan for IV antibiotics on discharge Dictation was produced using [employer] software. please excuse any grammatical, word or spelling errors. Time with Patient: Less than 30
--- NOTE | 2023-12-19 06:36 | P.PN ---
Subjective Progress Note Date: 12/18/23 58 years old male with past medical history of multiple medical problems, he was transferred from [facility] for altered mental status. He is a known case of left leg cellulitis and wounds secondary to MRSA. Patient was on IV vancomycin. Also patient was evidence of acute kidney injury with creatinine went up from 2.1 on admission today is 4.01. Baseline is around 0.7. Has been followed greer sely by drag seiner and he was started on gentle hydration and sodium bicarb pills Renal ultrasound showing possible solid lytic lesion on the left kidney 3.4 x 2.6 x 2.9 cm Patient was shown to have peripheral vascular disease with chronic critical left lower extremity ischemia s/p left common femoral and endarterectomy and left femoral-popliteal bypass Vital signs stable and patient is afebrile Labs reviewed and look stable Hemoglobin is 9.5 Creatinine 4.01 12/15/2023 -- patient seen and evaluated in room at bedside; has been afebrile, patient is breathing comfortably and is currently on 8 L nasal cannula oxygen, patient denies having any significant cough no chest pain shortness of breath, patient denies nausea vomiting or diarrhea and no abdominal pain and has been complaining of excruciating pain pain to the left BKA stump Patient white count is 11.8, creatinine is 4.32 patient with a chronic nonhealing wound to the left lower extremity in this patient who did have significant PAD requiring revascularization surgery now with more necrotic left foot wound left lower extremity and cellulitis with a previous culture positive for MRSA and Pseudomonas -patient did have a negative stress test t and the patient is status post left below the knee amputation completed on 12/14/2023 we will keep the patient on daptomycin and cefepime perioperatively but no need for antibiotics on discharge 12/16/2023 Patient is seen and evaluated in room at bedside; discussed with nursing staff; no specific complaints reported; patient's family is at bedside this morning; reports improved pain control with increasing Neurontin Vital signs are reviewed and stable with temperature of 98.7, pulse 67, respiration 18 and blood pressure 129/63 with O2 saturation 94% Blood work reveals WBC of 13.3, hemoglobin of 7.9, platelet count of 396, sodium of 139, potassium 4.7, BUNs/creatinine of 37/4.25 Patient remains on IV antibiotics in form of daptomycin and cefepime. ID on board and recommending to discontinue cefepime and continue to monitor CBC closely 12/17/2023 Patient is status post left BKA on 12/14/2023. patient is currently in bed. Awake alert and oriented. Mentation did improve compared to yesterday. Patient's mother is at bedside. Afebrile. No complaints of nausea or vomiting. No cough or sputum production. Patient is being continued on antibiotics daptomycin and is also on anticoagulation with Xarelto. IV hydration increased with normal saline at 75 cc/h. Gabapentin dose decreased to 300 mg twice daily. Patient is also on Percocet 7.5 every 4 as needed for pain. Nephrology and ID is on board. Urine cultures and blood cultures negative. Laboratory data showed WBC 13.1 hemoglobin 7.6 and platelets 319, sodium 138 potassium 4.4 chloride 112 bicarb is 20 BUN 39 and creatinine 4.34. Current medications reviewed. 12/18/2023 Patient is seen in follow-up today with multiple medical consultations following. Patient is maintained on antibiotics with infectious disease following along with vascular surgery as patient is status post left BKA. Mentation is improved today and patient is alert and oriented back to baseline. Recommend to continue with current medications with adjustments noted and monitor mentation. Repeat labs ordered and pending with nephrology following creatinine remains elevated although stable and is making good urine. Continue indwelling Stearns catheter. Plan is for patient to go to ECF on discharge. Review of systems: Constitutional: No reports of fatigue, fever, or chills Cardiovascular: No reports of chest pain or palpitations Respiratory: No reports of shortness of breath or cough GI: No reports of nausea, vomiting, or diarrhea : No reports of dysuria or retention Neurovascular: reports of weakness, reports left foot phantom pain All medications have been reviewed Physical exam: Gen: This is a 58-year-old male who is awake, alert and oriented x 2-3, not confused today, baseline, well-developed, elderly appearing HEENT: Head is atraumatic, normocephalic. Pupils equal, round. Sclerae is anicteric. NECK: Supple. No JVD. No lymphadenopathy. No thyromegaly. LUNGS: Diminished breath sounds bilaterally otherwise clear to auscultation. No wheezes or rhonchi. No intercostal retractions. HEART: S1, S2 are muffled ABDOMEN: Soft. Bowel sounds are present. No masses. No tenderness. EXTREMITIES: No pedal edema. No calf tenderness. Status post left BKA with imm obilizer in place NEUROLOGICAL: Patient is awake, alert and oriented x2-3 baseline. Cranial nerves 2 through 12 are grossly intact. Diffusely weak Assessment: Left lower extremity cellulitis and wound infection and gangrene secondary to ischemic peripheral artery disease. Status post left BKA on 12/14/2023 peripheral vascular disease with chronic critical left lower extremity ischemia s/p left common femoral and endarterectomy and left femoral-popliteal bypass Acute kidney injury due to ATN and vancomycin toxicity. Left kidney lucency suspicious for kidney mass Metabolic encephalopathy/delirium likely secondary to medications. Improving Left kidney lytic lesion 3.4 x 2.6 x 2.9 cm Acute metabolic acidosis due to DAYANARA. COPD no exacerbation Nicotine dependence Anxiety and depression, not an active issue DVT and GI prophylaxis. No Code Plan: Patient is being continued on antibiotics daptomycin. Continues IV hydration with normal saline creatinine level 4.34 today. Follow-up culture result negative so far. Continue gentle hydration and sodium bicarb Patient is on aspirin 81 and Xarelto has been resumed Patient is being followed by ID team, drag seiner, vascular surgery and cardi ologist Patient mental status changes yesterday, multiple bacteria likely from delirium and secondary to narcotic medications. Doses adjusted and recommend to monitor Mentation is back to baseline today patient is much more awake and alert Infectious disease following and will discuss further regarding discharge planning. Patient has received adequate antibiotic therapy and will not require antibiotics on discharge. Continue wound care. And stump long term care pharmacist per vascular surgery Plan is to return to ECF on discharge. Will discuss with case management and other consultations regarding discharge, possibly in the next 24 to 48 hours Due to multiple complex medical conditions, overall prognosis is guarded The impression and plan of care has been dictated by Yolie Ivy, Nurse Practitioner as directed. Dr. Ivon MD I have performed a history and examination and MDM of this patient, discussed the same with the dictator, and agree with the dictator's assessment and plan as written ,documented as a scribe. Based on total visit time, I have performed more than 50% of the visit. Objective - Vital Signs Vital signs: Vital Signs Temp 98.5 F 12/19/23 04:02 Pulse 68 06/12/24 04:02 Resp 14 12/19/23 04:02 BP 127/65 12/19/23 04:02 Pulse Ox 92 L 12/19/23 04:02 FiO2 21 12/14/23 08:41 Intake & Output 12/18/23 12/18/23 12/19/23 06:59 18:59 06:59 Intake Total 10 20 Output Total 930 1200 500 Balance -920 -1180 -500 Intake: IV 10 20 Invasive Line 2 10 20 Output: Urine 930 1200 500 Other: Voiding Method Indwelling Catheter Indwelling Catheter Indwelling Catheter - Labs CBC & Chem 7: 12/18/23 06:42 12/18/23 06:42 Labs: Abnormal Lab Results - Last 24 Hours (Table) 12/18/23 12/18/23 Range/Units 06:42 06:42 WBC 11.5 H (3.8-10.6) k/uL RBC 2.75 L (4.30-5.90) m/uL Hgb 7.3 L (13.0-17.5) gm/dL Hct 23.6 L (39.0-53.0) % MCHC 30.9 L (31.0-37.0) g/dL RDW 16.4 H (11.5-15.5) % Neutrophils # 8.6 H (1.3-7.7) k/uL Eosinophils # 0.8 H (0-0.7) k/uL Chloride 111 H (98-107) mmol/L Carbon Dioxide 20 L (22-30) mmol/L BUN 39 H (9-20) mg/dL Creatinine 4.20 H (0.66-1.25) mg/dL Calcium 7.4 L (8.4-10.2) mg/dL
[2023-12-19 08:05] LABS: Anisocytosis Slight; Basophils % (A) 0 %; Eosinophils # (A) 0.9 k/uL (0-0.7); Eosinophils % (A) 7 %; HCT 23.1 % (39.0-53.0); Hypochromasia Moderate; Lymphocytes # (A) 1.2 k/uL (1.0-4.8); Lymphocytes % (A) 9 %; MCH 25.8 pg (25.0-35.0); MCHC 30.3 g/dL (31.0-37.0); MCV 85.1 fL (80.0-100.0); Monocytes # (A) 0.8 k/uL (0-1.0); Monocytes % (A) 6 %; Neutrophils # (A) 10.6 k/uL (1.3-7.7); Neutrophils % (A) 77 %; Platelet Count 343 k/uL (150-450); RBC 2.72 m/uL (4.30-5.90); RDW 16.3 % (11.5-15.5); WBC 13.7 k/uL (3.8-10.6)
[2023-12-19 08:21] LABS: African American GFR (CKD) 19 (>60 ml/min/1.73 sqM); Anion Gap 5 mmol/L; Blood Urea Nitrogen 39 mg/dL (9-20); Calcium 7.3 mg/dL (8.4-10.2); Carbon Dioxide 21 mmol/L (22-30); Chloride 110 mmol/L (98-107); Glucose 85 mg/dL (74-99); Magnesium 1.7 mg/dL (1.6-2.3); Non-African American GFR(CKD) 16 (>60 ml/min/1.73 sqM); Sodium 136 mmol/L (137-145)
[2023-12-19] MEDS: SENNOSIDES 8.6 MG TAB PO SCH (08:30)
--- NOTE | 2023-12-19 10:27 | P.PN ---
Subjective Progress Note Date: 12/19/23 Principal diagnosis: Left lower extremity nonhealing wounds, gangrene foot Patient is seen and examined today as a follow-up. States overall he is doing well. Pain is well-managed. States he is feeling tired today. Last bowel movement was prior to surgery on Sunday. Stool softener started. Denies any shortness of breath, abdominal pain, chest pain, nausea or vomiting. Denies any GI bleed. He is afebrile. Hemoglobin today is 7.0. Occupational Therapy worked with patient yesterday and educated him on exercises for the left leg and to help straighten his knee. Plan is for discharge to subacute rehab. Objective - Vital Signs Vital signs: Vital Signs Temp 98.5 F 12/19/23 04:02 Pulse 68 12/19/23 04:02 Resp 14 12/19/23 04:02 BP 127/65 12/19/23 04:02 Pulse Ox 92 L 12/19/23 04:02 FiO2 21 12/14/23 08:41 Intake & Output 12/18/23 12/19/23 12/19/23 18:59 06:59 18:59 Intake Total 20 Output Total 1200 1100 Balance -1180 -1100 Intake: IV 20 Invasive Line 2 20 Output: Urine 1200 1100 Other: Voiding Method Indwelling Catheter Indwelling Catheter - Exam General appearance: The patient is alert, oriented to self and place, appears in no acute distress. HET: Head is normocephalic and atraumatic. Pupils are equal and reactive. Neck: Supple. Abdomen: Soft, nontender, nondistended. Extremities: Left lower extremity BKA with stump hvac sheet metal installer helper and rigid dressing in place. Knee immobilizer in place. Neurological: Alert and oriented. Good muscle tone. - Labs CBC & Chem 7: 12/19/23 07:48 12/19/23 07:48 Labs: Abnormal Lab Results - Last 24 Hours (Table) 12/19/23 12/19/23 Range/Units 07:48 07:48 WBC 13.7 H (3.8-10.6) k/uL RBC 2.72 L (4.30-5.90) m/uL Hgb 7.0 L (13.0-17.5) gm/dL Hct 23.1 L (39.0-53.0) % MCHC 30.3 L (31.0-37.0) g/dL RDW 16.3 H (11.5-15.5) % Neutrophils # 10.6 H (1.3-7.7) k/uL Eosinophils # 0.9 H (0-0.7) k/uL Sodium 136 L (137-145) mmol/L Chloride 110 H (98-107) mmol/L Carbon Dioxide 21 L (22-30) mmol/L BUN 39 H (9-20) mg/dL Creatinine 3.80 H (0.66-1.25) mg/dL Calcium 7.3 L (8.4-10.2) mg/dL Assessment and Plan Assessment: 1. 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 History of peripheral arterial disease with critical limb ischemia of the left lower extremity status post left common femoral endarterectomy and femoral to below-knee popliteal bypass 3. Nonhealing left lower extremity wounds 4. Altered mental status changes, resolved 5. Leukocytosis 6. Chronic anemia 7. Recent wound culture with MRSA and Pseudomonas on outpatient IV antibiotics 8. Acute renal failure 9. Chest pain Plan: 1. Keep stump hvac sheet metal installer helper and rigid dressing in place along with knee immobilizer 2. Daily dressing change with 4 x 4 and Kerlix 3. Continue Xarelto 2.5 mg twice daily 4. Give 1 unit PRBC transfusion. Repeat CBC following transfusion 5. PT and OT on consultation, discussed with PT to work with patient for left knee contracture 6. Antibiotics per recommendations from infectious disease 7. Continue Senokot twice daily 8. Rest of medical management per primary medical team Thank you for this consultation, patient is cleared from vascular surgery for discharge to subacute rehab after blood transfusion. The impression and plan of care has been dictated as directed. Dr. Robin I performed a history and examination of this patient, discussed the same with the dictator. I agree with the dictator's note ,documented as a scribe. Any additional findings or plans will be noted.
--- NOTE | 2023-12-19 12:42 | P.PN ---
Subjective patient is seen for follow-up for acute kidney injury secondary to vancomycin toxicity. Renal function is stable. improved today. Maintained on IV fluids. Serum creatinine at 3.8 mg/dL Objective - Vital Signs Vital signs: Vital Signs Temp 98.3 F 12/19/23 08:30 Pulse 60 12/19/23 11:10 Resp 17 12/19/23 11:10 BP 114/59 12/19/23 11:10 Pulse Ox 92 L 12/19/23 11:10 FiO2 21 12/14/23 08:41 Intake & Output 12/18/23 12/19/23 12/19/23 18:59 06:59 18:59 Intake Total 20 180 Output Total 1200 1100 Balance -1180 -1100 180 Intake: IV 20 Invasive Line 2 20 Oral 180 Output: Urine 1200 1100 Other: Voiding Method Indwelling Catheter Indwelling Catheter Indwelling Catheter - Exam patient is awake, comfortable, no acute distress. Examination of the heart S1 and S2 Examination of the lungs bilateral breath sounds are heard Abdomen is soft nontender Examination of lower extremities shows no significant edema. LABORATORY SPECIALIST exam grossly intact - Labs CBC & Chem 7: 12/19/23 07:48 12/19/23 07:48 Labs: Abnormal Lab Results - Last 24 Hours (Table) 12/19/23 12/19/23 12/19/23 Range/Units 07:48 07:48 09:10 WBC 13.7 H (3.8-10.6) k/uL RBC 2.72 L (4.30-5.90) m/uL Hgb 7.0 L (13.0-17.5) gm/dL Hct 23.1 L (39.0-53.0) % MCHC 30.3 L (31.0-37.0) g/dL RDW 16.3 H (11.5-15.5) % Neutrophils # 10.6 H (1.3-7.7) k/uL Eosinophils # 0.9 H (0-0.7) k/uL Sodium 136 L (137-145) mmol/L Chloride 110 H (98-107) mmol/L Carbon Dioxide 21 L (22-30) mmol/L BUN 39 H (9-20) mg/dL Creatinine 3.80 H (0.66-1.25) mg/dL Calcium 7.3 L (8.4-10.2) mg/dL Crossmatch See Detail Assessment and Plan Assessment: 1. Acute kidney injury secondary to ATN secondary to vancomycin toxicity. C reatinine improved to 3.8 today. Baseline creatinine 0.75 from November 2023. UA with 1+ protein. No hydronephrosis noted on kidney ultrasound. 2. Peripheral arterial disease with left foot gangrene. Underwent femoropopliteal bypass in September 2023. Status post left BKA December 14, 2023. Vascular surgery and infectious disease following. 3. Chronic systolic CHF with ejection fraction of 40 to 45%. 4. Metabolic acidosis secondary to acute kidney injury. Status post bicarb drip. On oral bicarb. Improved. 5. Left kidney lesion. Seen by urology. Further workup outpatient. 6. Acute blood loss anemia status post blood transfusion this admission. Improved. Mild iron deficiency noted. status post 1 dose of IV iron. Plan: continue with oral sodium bicarb. Continue to encourage increased fluid intake. Continue to avoid any nephrotoxic agents. Repeat labs in a.m.
--- NOTE | 2023-12-20 04:54 | P.PN ---
Subjective Progress Note Date: 12/20/23 58 years old male with past medical history of multiple medical problems, he was transferred from [facility] for altered mental status. He is a known case of left leg cellulitis and wounds secondary to MRSA. Patient was on IV vancomycin. Also patient was evidence of acute kidney injury with creatinine went up from 2.1 on admission today is 4.01. Baseline is around 0.7. Has been followed greer sely by executive pilot and he was started on gentle hydration and sodium bicarb pills Renal ultrasound showing possible solid lytic lesion on the left kidney 3.4 x 2.6 x 2.9 cm Patient was shown to have peripheral vascular disease with chronic critical left lower extremity ischemia s/p left common femoral and endarterectomy and left femoral-popliteal bypass Vital signs stable and patient is afebrile Labs reviewed and look stable Hemoglobin is 9.5 Creatinine 4.01 12/15/2023 -- patient seen and evaluated in room at bedside; has been afebrile, patient is breathing comfortably and is currently on 8 L nasal cannula oxygen, patient denies having any significant cough no chest pain shortness of breath, patient denies nausea vomiting or diarrhea and no abdominal pain and has been complaining of excruciating pain pain to the left BKA stump Patient white count is 11.8, creatinine is 4.32 patient with a chronic nonhealing wound to the left lower extremity in this patient who did have significant PAD requiring revascularization surgery now with more necrotic left foot wound left lower extremity and cellulitis with a previous culture positive for MRSA and Pseudomonas -patient did have a negative stress test t and the patient is status post left below the knee amputation completed on 12/14/2023 we will keep the patient on daptomycin and cefepime perioperatively but no need for antibiotics on discharge 12/16/2023 Patient is seen and evaluated in room at bedside; discussed with nursing staff; no specific complaints reported; patient's family is at bedside this morning; reports improved pain control with increasing Neurontin Vital signs are reviewed and stable with temperature of 98.7, pulse 67, respiration 18 and blood pressure 129/63 with O2 saturation 94% Blood work reveals WBC of 13.3, hemoglobin of 7.9, platelet count of 396, sodium of 139, potassium 4.7, BUNs/creatinine of 37/4.25 Patient remains on IV antibiotics in form of daptomycin and cefepime. ID on board and recommending to discontinue cefepime and continue to monitor CBC closely 12/17/2023 Patient is status post left BKA on 12/14/2023. patient is currently in bed. Awake alert and oriented. Mentation did improve compared to yesterday. Patient's mother is at bedside. Afebrile. No complaints of nausea or vomiting. No cough or sputum production. Patient is being continued on antibiotics daptomycin and is also on anticoagulation with Xarelto. IV hydration increased with normal saline at 75 cc/h. Gabapentin dose decreased to 300 mg twice daily. Patient is also on Percocet 7.5 every 4 as needed for pain. Nephrology and ID is on board. Urine cultures and blood cultures negative. Laboratory data showed WBC 13.1 hemoglobin 7.6 and platelets 319, sodium 138 potassium 4.4 chloride 112 bicarb is 20 BUN 39 and creatinine 4.34. Current medications reviewed. 12/18/2023 Patient is seen in follow-up today with multiple medical consultations following. Patient is maintained on antibiotics with infectious disease following along with vascular surgery as patient is status post left BKA. Mentation is improved today and patient is alert and oriented back to baseline. Recommend to continue with current medications with adjustments noted and monitor mentation. Repeat labs ordered and pending with nephrology following creatinine remains elevated although stable and is making good urine. Continue indwelling Stearns catheter. Plan is for patient to go to ECF on discharge. 12/28/2023 Patient seen in follow-up today hemoglobin at 7 will give a unit of blood follow-up with repeat labs. Otherwise patient's mentation is stable and improved and maintained on antibiotics and will not require antibiotics on discharge. Vascular surgery following recommend doing the stump general manager and outpatient follow-up. Patient is afebrile with no reports of chest pain or shortness of breath. Will discuss with case management about discharge planning Review of systems: Constitutional: No reports of fatigue, fever, or chills Cardiovascular: No reports of chest pain or palpitations Respiratory: No reports of shortness of breath or cough GI: No reports of nausea, vomiting, or diarrhea : No reports of dysuria or retention Neurovascular: reports of weakness, reports occasional left foot phantom pain All medications have been reviewed Physical exam: Gen: This is a 58-year-old male who is awake, alert and oriented x 2-3, not confused today, baseline, well-developed, elderly appearing, pale HEENT: Head is atraumatic, normocephalic. Pupils equal, round. Sclerae is anicteric. NECK: Supple. No JVD. No lymphadenopathy. No thyromegaly. LUNGS: Diminished breath sounds bilaterally otherwise clear to auscultation. No wheezes or rhonchi. No intercostal retractions. HEART: S1, S2 are muffled ABDOMEN: Soft. Bowel sounds are present. No masses. No tenderness. EXTREMITIES: No pedal edema. No calf tenderness. Status post left BKA with immobilizer in place NEUROLOGICAL: Patient is awake, alert and oriented x2-3 baseline. Cranial nerves 2 through 12 are grossly intact. Diffusely weak Assessment: Left lower extremity cellulitis and wound infection and gangrene secondary to ischemic peripheral artery disease. Status post left BKA on 12/14/2023 peripheral vascular disease with chronic critical left lower extremity ischemia s/p left common femoral and endarterectomy and left femoral-popliteal bypass Acute kidney injury due to ATN and vancomycin toxicity. Left kidney lucency suspicious for kidney mass Anemia, likely chronic Metabolic encephalopathy/delirium likely secondary to medications. Improving Left kidney lytic lesion 3.4 x 2.6 x 2.9 cm Acute metabolic acidosis due to DAYANARA. COPD no exacerbation Nicotine dependence Anxiety and depression, not an active issue DVT and GI prophylaxis. No Code Plan: Patient is being continued on antibiotics daptomycin. Continues IV hydration with normal saline creatinine level mildly improved today. Continue current regimen with nephrology following Follow-up culture result negative so far. Patient will continue on antibiotic for now and will not require antibiotics on discharge Continue gentle hydration and sodium bicarb Patient is on aspirin 81 and Xarelto has been resumed Patient is being followed by ID team, executive pilot, vascular surgery and cable mock up assembler Mentation is back to baseline today patient is much more awake and alert, recommend narcotics and MACHINE CHOCOLATE MOLDER agents Wound was found to be 7.0 we will give 1 unit and follow-up on repeat labs. Plan is to return to ECF on discharge. Will discuss with case management and other consultations regarding discharge, possibly in the next 24 hours Due to multiple complex medical conditions, overall prognosis is guarded The impression and plan of care has been dictated by Yolie Ivy, Nurse Practitioner as directed. Dr. Ivon MD I have performed a history and examination and MDM of this patient, discussed the same with the dictator, and agree with the dictator's assessment and plan as written ,documented as a scribe. Based on total visit time, I have performed more than 50% of the visit. Objective - Vital Signs Vital signs: Vital Signs Temp 98.3 F 12/19/23 13:21 Pulse 60 12/19/23 13:21 Resp 16 12/19/23 13:21 BP 123/65 12/19/23 13:21 Pulse Ox 91 L 12/19/23 13:21 FiO2 21 12/14/23 08:41 Intake & Output 12/18/23 12/19/23 12/19/23 18:59 06:59 18:59 Intake Total 20 180 Output Total 1200 1100 700 Balance -1180 -1100 -520 Intake: IV 20 Invasive Line 2 20 Oral 180 Blood Product 0 Unit 0 Output: Urine 1200 1100 700 Other: Voiding Method Indwelling Catheter Indwelling Catheter Indwelling Catheter - Labs CBC & Chem 7: 12/19/23 07:48 12/19/23 07:48 Labs: Abnormal Lab Results - Last 24 Hours (Table) 12/13/23 12/19/23 12/19/23 Range/Units 07:05 07:48 07:48 WBC 13.7 H (3.8-10.6) k/uL RBC 2.72 L (4.30-5.90) m/uL Hgb 7.0 L (13.0-17.5) gm/dL Hct 23.1 L (39.0-53.0) % MCHC 30.3 L (31.0-37.0) g/dL RDW 16.3 H (11.5-15.5) % Neutrophils # 10.6 H (1.3-7.7) k/uL Eosinophils # 0.9 H (0-0.7) k/uL Sodium 136 L (137-145) mmol/L Chloride 110 H (98-107) mmol/L Carbon Dioxide 21 L (22-30) mmol/L BUN 39 H (9-20) mg/dL Creatinine 3.80 H (0.66-1.25) mg/dL Calcium 7.3 L (8.4-10.2) mg/dL Crossmatch See Detail 12/19/23 Range/Units 09:10 WBC (3.8-10.6) k/uL RBC (4.30-5.90) m/uL Hgb (13.0-17.5) gm/dL Hct (39.0-53.0) % MCHC (31.0-37.0) g/dL RDW (11.5-15.5) % Neutrophils # (1.3-7.7) k/uL Eosinophils # (0-0.7) k/uL Sodium (137-145) mmol/L Chloride (98-107) mmol/L Carbon Dioxide (22-30) mmol/L BUN (9-20) mg/dL Creatinine (0.66-1.25) mg/dL Calcium (8.4-10.2) mg/dL Crossmatch See Detail
[2023-12-20] MEDS: oxyCODONE-APAP 7.5-325MG 1 EACH TAB PO PRN (08:46)
[2023-12-20] MEDS: MAGNESIUM OXIDE 400 MG TAB PO SCH (08:46)
[2023-12-20 09:59] LABS: HCT 27.2 % (39.0-53.0); HGB 8.2 gm/dL (13.0-17.5); Hypochromasia Marked; MCH 26.9 pg (25.0-35.0); MCHC 30.3 g/dL (31.0-37.0); MCV 88.7 fL (80.0-100.0); Mean Platelet Volume 7.8; Platelet Count 377 k/uL (150-450); RBC 3.06 m/uL (4.30-5.90); RDW 15.9 % (11.5-15.5); WBC 12.2 k/uL (3.8-10.6)
[2023-12-20 10:01] LABS: African American GFR (CKD) 21 (>60 ml/min/1.73 sqM); Anion Gap 5 mmol/L; Blood Urea Nitrogen 37 mg/dL (9-20); Calcium 7.5 mg/dL (8.4-10.2); Carbon Dioxide 21 mmol/L (22-30); Chloride 109 mmol/L (98-107); Glucose 88 mg/dL (74-99); Non-African American GFR(CKD) 18 (>60 ml/min/1.73 sqM); Potassium 3.9 mmol/L (3.5-5.1); Sodium 135 mmol/L (137-145)
[2023-12-20 10:03] VITALS: TEMP 98.7
--- NOTE | 2023-12-20 11:06 | P.PN ---
Subjective Progress Note Date: 12/20/23 Principal diagnosis: Left lower extremity nonhealing wounds, gangrene foot Patient seen and examined as a follow-up. He yesterday he was given 1 unit of blood for hemoglobin of 7.0. Repeat hemoglobin today at 8.2. Pain is again well-managed. He has his knee immobilizer in place left amputation site. He has been afebrile. Objective - Vital Signs Vital signs: Vital Signs Temp 98.7 F 12/20/23 08:45 Pulse 65 12/20/23 08:45 Resp 17 12/20/23 08:45 BP 140/67 12/20/23 08:45 Pulse Ox 90 L 12/20/23 08:45 FiO2 21 12/14/23 08:41 Intake & Output 12/19/23 12/20/23 12/20/23 18:59 06:59 18:59 Intake Total 650 Output Total 700 1450 Balance -50 -1450 Intake: Oral 360 Blood Product 290 Rc Pheresis 2 As3 Unit 290 [id number] Output: Urine 700 1450 Other: Voiding Method Indwelling Catheter Indwelling Catheter Indwelling Catheter - Exam General appearance: The patient is alert, oriented to self and place, appears in no acute distress. HET: Head is normocephalic and atraumatic. Pupils are equal and reactive. Neck: Supple. Abdomen: Soft, nontender, nondistended. Extremities: Left lower extremity BKA with stump nurse monitoring and rigid dressing in place. Knee immobilizer in place. Neurological: Alert and oriented. Good muscle tone. - Labs CBC & Chem 7: 12/20/23 09:25 12/20/23 09:25 Labs: Abnormal Lab Results - Last 24 Hours (Table) 12/13/23 12/19/23 12/20/23 Range/Units 07:05 09:10 09:25 WBC 12.2 H (3.8-10.6) k/uL RBC 3.06 L (4.30-5.90) m/uL Hgb 8.2 L (13.0-17.5) gm/dL Hct 27.2 L (39.0-53.0) % MCHC 30.3 L (31.0-37.0) g/dL RDW 15.9 H (11.5-15.5) % Sodium (137-145) mmol/L Chloride (98-107) mmol/L Carbon Dioxide (22-30) mmol/L BUN (9-20) mg/dL Creatinine (0.66-1.25) mg/dL Calcium (8.4-10.2) mg/dL Crossmatch See Detail See Detail 12/20/23 Range/Units 09:25 WBC (3.8-10.6) k/uL RBC (4.30-5.90) m/uL Hgb (13.0-17.5) gm/dL Hct (39.0-53.0) % MCHC (31.0-37.0) g/dL RDW (11.5-15.5) % Sodium 135 L (137-145) mmol/L Chloride 109 H (98-107) mmol/L Carbon Dioxide 21 L (22-30) mmol/L BUN 37 H (9-20) mg/dL Creatinine 3.52 H (0.66-1.25) mg/dL Calcium 7.5 L (8.4-10.2) mg/dL Crossmatch Assessment and Plan Assessment: 1. 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 History of peripheral arterial disease with critical limb ischemia of the left lower extremity status post left common femoral endarterectomy and femoral to below-knee popliteal bypass 3. Nonhealing left lower extremity wounds 4. Altered mental status changes, resolved 5. Leukocytosis 6. Chronic anemia 7. Recent wound culture with MRSA and Pseudomonas on outpatient IV antibiotics 8. Acute renal failure 9. Chest pain Plan: 1. Keep stump nurse monitoring and rigid dressing in place along with knee immobilizer 2. Daily dressing change with 4 x 4 and Kerlix 3. Continue Xarelto 2.5 mg twice daily 4. PT and OT on consultation, discussed with PT to work with patient for left knee contracture 5. Antibiotics per recommendations from infectious disease 6. Continue Senokot twice daily 7. Rest of medical management per primary medical team Thank you for this consultation, patient is cleared from vascular surgery for discharge to subacute rehab. We will sign off at this time. The impression and plan of care has been dictated as directed. Dr. Stearns I performed a history and examination of this patient, discussed the same with the dictator. I agree with the dictator's note ,documented as a scribe. Any additional findings or plans will be noted.
--- NOTE | 2023-12-20 11:47 | P.DS ---
Providers Date of admission: 12/05/23 15:19 Expected date of discharge: 12/20/23 Attending physician: Jeri Staton Consults: 12/05/23 15:19 Consult Physician Urgent Consulting Provider: Torrie Shaffer Consult Reason/Comments: mrsa cellulitis, nephrotoxicity Do you want consulting provider notified?: Yes 12/06/23 11:34 Consult Physician Urgent Consulting Provider: Jorge Lehman Consult Reason/Comments: chest pain Do you want consulting provider notified?: Yes 12/06/23 13:39 Consult Physician Urgent Consulting Provider: Marcos Payne Consult Reason/Comments: lower extremity ischemia? previous left fempop bypass in 09/29 Do you want consulting provider notified?: Yes 12/10/23 11:32 Consult Physician Routine Consulting Provider: Jcarlos Knutson Consult Reason/Comments: DAYANARA Do you want consulting provider notified?: Yes 12/13/23 07:22 Consult Physician Routine Consulting Provider: Sanjeev Kat Consult Reason/Comments: possible left kid mass Do you want consulting provider notified?: Yes Primary care physician: Kierra Fisher DO Hospital Course: Final diagnosis Left lower extremity cellulitis and wound infection and gangrene secondary to ischemic peripheral artery disease. Status post left BKA on 12/14/2023 peripheral vascular disease with chronic critical left lower extremity ischemia s/p left common femoral and endarterectomy and left femoral-popliteal bypass Acute kidney injury due to ATN and vancomycin toxicity. Left kidney lucency suspicious for kidney mass Anemia, likely chronic Metabolic encephalopathy/delirium likely secondary to medications. Improving Left kidney lytic lesion 3.4 x 2.6 x 2.9 cm Acute metabolic acidosis due to DAYANARA. COPD no exacerbation Nicotine dependence Anxiety and depression, not an active issue DVT and GI prophylaxis. No Code Discharge disposition Patient is being discharged in a stable condition with guarded prognosis to [facility]. Patient will follow-up with Dr. Fisher in the outpatient setting upon discharge. Patient is to continue with current medications and outpatient follow-up with vascular surgery as scheduled. Continue with wound care of the left lower extremity per vascular surgery recommendations as mentioned below. Repeat labs in the next 2 to 3 days to monitor CBC and BMP total time taken is greater than 35 minutes. Hospital course This is a 58-year-old male who was recently admitted with concerns of lower extremity cellulitis and wound infection with gangrene secondary to ischemic peripheral artery disease. Patient Evaluated by vascular surgery and is status post left BKA on 12/14/2023. Patient has been resumed on anticoagulation and has been cleared by other consultations. Patient with left kidney lytic lesion and other findings will need outpatient follow-up. Patient did have DAYANARA which is chronic and stable per nephrology recommending to continue with current regimen and patient is on sodium bicarb tablets recommend outpatient follow-up and repeat labs in the next few days of BMP and CBC for monitoring. Patient did have a hemoglobin of 7.0 and today's hemoglobin after 1 unit of PRBC yesterday is 8.2. Patient has received adequate antibiotics and being followed by infectious disease and will not require antibiotics on discharge. Patient to follow-up with vascular surgery outpatient. Please refer to other consultation notes for further HPI. Currently no reports of chest pain, shortness of breath, or palpitations. Patient is afebrile. No reports of nausea or vomiting and patient is tolerating diet. Patient will be going to [facility] today. Guarded prognosis and high risk for readmissions given significant comorbidities Physical exam: Gen: This is a 58-year-old male who is awake, alert and oriented x 2-3, baseline, well-developed, elderly appearing HEENT: Head is atraumatic, normocephalic. Pupils equal, round. Sclerae is anicteric. NECK: Supple. No JVD. No lymphadenopathy. No thyromegaly. LUNGS: Diminished breath sounds bilaterally otherwise clear to auscultation. No wheezes or rhonchi. No intercostal retractions. HEART: S1, S2 are muffled ABDOMEN: Soft. Bowel sounds are present. No masses. No tenderness. EXTREMITIES: No pedal edema. No calf tenderness. Left BKA immobilizer noted. NEUROLOGICAL: Patient is awake, alert and oriented x3. Cranial nerves 2 through 12 are grossly intact. Please refer to medication reconciliation sheet for a list of medications. The impression and plan of care has been dictated by Yolie Ivy, Nurse Practitioner as directed. Dr. Ivon MD I have performed a history and examination and MDM of this patient, discussed the same with the dictator, and agree with the dictator's assessment and plan as written ,documented as a scribe. Based on total visit time, I have performed more than 50% of the visit. Patient Condition at Discharge: Fair Plan - Discharge Summary New Discharge Prescriptions: No Action Naloxone [Narcan] 0.4 mg IM ONCE PRN PRN Reason: Overdose Acetaminophen [Tylenol Arthritis] 650 mg PO Q6H PRN PRN Reason: Fever And/ Or Pain Famotidine [Pepcid] 10 mg PO DAILY Gabapentin [Neurontin] 600 mg PO TID@0700,1300,1900 #30 cap oxyCODONE-APAP 7.5-325MG [Percocet 7.5-325 mg] 1 tab PO Q4H Tamsulosin [Flomax] 0.4 mg PO DAILY Metoprolol Succinate (ER) [Toprol Xl] 25 mg PO DAILY Calcium Carbonate/Vitamin D3 [Calcium 600 mg-Vit D3 5 mcg (200 unit)] 1 tab PO DAILY Atorvastatin [Lipitor] 40 mg PO HS tab Mirtazapine [Remeron] 15 mg PO HS tab Thiamine [Vitamin B-1] 100 mg PO DAILY #30 tab Naloxone HCl [Narcan] 4 mg NASAL ONCE PRN PRN Reason: overdose Magnesium Oxide [Mag-Ox] 400 mg PO DAILY Citalopram Hydrobromide [CeleXA] 40 mg PO HS oxyCODONE-APAP 7.5-325MG [Percocet 7.5-325 mg] 1 tab PO Q4HR PRN PRN Reason: Pain Vancomycin 1,500 mg IVPB BID@0900,2100 Rivaroxaban [Xarelto] 2.5 mg PO BID@0700,1900 Aspirin EC [Ecotrin Low Dose] 81 mg PO DAILY Ascorbic Acid [Vitamin C] 500 mg PO DAILY Discharge Medication List Atorvastatin [Lipitor] 40 mg PO HS tab 09/10/23 [Rx] Mirtazapine [Remeron] 15 mg PO HS tab 09/10/23 [Rx] Thiamine [Vitamin B-1] 100 mg PO DAILY #30 tab 09/19/23 [Rx] Acetaminophen [Tylenol Arthritis] 650 mg PO Q6H PRN 11/05/23 [History] Citalopram Hydrobromide [CeleXA] 40 mg PO HS 11/05/23 [History] Famotidine [Pepcid] 10 mg PO DAILY 11/05/23 [History] Magnesium Oxide [Mag-Ox] 400 mg PO DAILY 11/05/23 [History] Naloxone HCl [Narcan] 4 mg NASAL ONCE PRN 11/05/23 [History] Naloxone [Narcan] 0.4 mg IM ONCE PRN 11/05/23 [History] Gabapentin [Neurontin] 600 mg PO TID@0700,1300,1900 #30 cap 11/08/23 [Rx] Metoprolol Succinate (ER) [Toprol Xl] 25 mg PO DAILY 11/22/23 [History] Rivaroxaban [Xarelto] 2.5 mg PO BID@0700,1900 11/22/23 [History] Tamsulosin [Flomax] 0.4 mg PO DAILY 11/22/23 [History] Vancomycin 1,500 mg IVPB BID@0900,2100 11/22/23 [History] oxyCODONE-APAP 7.5-325MG [Percocet 7.5-325 mg] 1 tab PO Q4H 11/22/23 [History] oxyCODONE-APAP 7.5-325MG [Percocet 7.5-325 mg] 1 tab PO Q4HR PRN 11/22/23 [History] Ascorbic Acid [Vitamin C] 500 mg PO DAILY 12/05/23 [History] Aspirin EC [Ecotrin Low Dose] 81 mg PO DAILY 12/05/23 [History] Calcium Carbonate/Vitamin D3 [Calcium 600 mg-Vit D3 5 mcg (200 unit)] 1 tab PO DAILY 12/05/23 [History] Follow up Appointment(s)/Referral(s): Kierra Fisher DO [Primary Care Provider] - 1-2 days Sanjeev Kat MD [STAFF PHYSICIAN] - 2 Weeks Marcos Payne DO [STAFF PHYSICIAN] - 2 Weeks [facility] [NON-STAFF] - 1 Week Activity/Diet/Wound Care/Special Instructions: Activity as tolerated. Continue to work with physical therapy. Continue with working on straightening left knee with physical therapy Daily dressing change to left BKA with 4 x 4 Curlex and stump mechanical cad drafter and rigid dressing placement Keep stump mechanical cad drafter and rigid dressing in place. Rigid dressing may come off during day as needed for comfort. Patient should sleep with in place Keep knee immobilizer in place May shower but no tub bathing. Monitor incision for signs of infection including redness, foul odor and fevers greater than 100.4.
--- NOTE | 2023-12-20 13:26 | P.PN ---
Subjective patient is seen for follow-up for acute kidney injury secondary to vancomycin toxicity. Renal function is stable. improved today. Maintained on IV fluids. Serum creatinine at 3.5 mg/dL Objective - Vital Signs Vital signs: Vital Signs Temp 98.7 F 12/20/23 08:45 Pulse 65 12/20/23 08:45 Resp 17 12/20/23 08:45 BP 140/67 12/20/23 08:45 Pulse Ox 90 L 12/20/23 08:45 FiO2 21 12/14/23 08:41 Intake & Output 12/19/23 12/20/23 12/20/23 18:59 06:59 18:59 Intake Total 650 Output Total 700 1450 525 Balance -50 -5420 -525 Intake: Oral 360 Blood Product 290 Rc Pheresis 2 As3 Unit 290 [id number] Output: Urine 700 1450 525 Other: Voiding Method Indwelling Catheter Indwelling Catheter Indwelling Catheter - Exam patient is awake, comfortable, no acute distress. Examination of the heart S1 and S2 Examination of the lungs bilateral breath sounds are heard Abdomen is soft nontender Examination of lower extremities shows no significant edema. MICROSCOPIST exam grossly intact - Labs CBC & Chem 7: 12/20/23 09:25 12/20/23 09:25 Labs: Abnormal Lab Results - Last 24 Hours (Table) 12/19/23 12/20/23 12/20/23 Range/Units 09:10 09:25 09:25 WBC 12.2 H (3.8-10.6) k/uL RBC 3.06 L (4.30-5.90) m/uL Hgb 8.2 L (13.0-17.5) gm/dL Hct 27.2 L (39.0-53.0) % MCHC 30.3 L (31.0-37.0) g/dL RDW 15.9 H (11.5-15.5) % Sodium 135 L (137-145) mmol/L Chloride 109 H (98-107) mmol/L Carbon Dioxide 21 L (22-30) mmol/L BUN 37 H (9-20) mg/dL Creatinine 3.52 H (0.66-1.25) mg/dL Calcium 7.5 L (8.4-10.2) mg/dL Crossmatch See Detail Assessment and Plan Assessment: 1. Acute kidney injury secondary to ATN secondary to vancomycin toxicity. Creatinine improved to 3.5 today. Baseline creatinine 0.75 from November 2023. UA with 1+ protein. No hydronephrosis noted on kidney ultrasound. 2. Peripheral arterial disease with left foot gangrene. Underwent femoropopliteal bypass in September 2023. Status post left BKA December 14, 2023. Vascular surgery and infectious disease following. 3. Chronic systolic CHF with ejection fraction of 40 to 45%. 4. Metabolic acidosis secondary to acute kidney injury. Status post bicarb drip. On oral bicarb. Improved. 5. Left kidney lesion. Seen by urology. Further workup outpatient. 6. Acute blood loss anemia status post blood transfusion this admission. Improved. Mild iron deficiency noted. status post 1 dose of IV iron. Plan: continue with oral sodium bicarb. Continue to encourage increased fluid intake. Continue to avoid any nephrotoxic agents. Repeat labs in a.m.
[2023-12-20 14:02] VITALS: BP 129/64; PULSE 59; RESP 18
== END 2023-12-20 15:13 | DRG 711 ==
LOC: EC 11:57 → 5NMEDONC 15:19 → 2SICU 12-06 05:25 → 3SCARD 12-08 03:49
PROVIDERS: ADMIT Hospitalist; ATTEND Hospitalist
PROC: 0Y6J0Z1 Detachment at Left Lower Leg, High, Open Approach (ICD-10-PCS; principal; 2023-12-14 11:30)
DX: T81.41XA Infection following a procedure, superficial incisional surgical site, initial encounter (principal); A41.02 Sepsis due to Methicillin resistant Staphylococcus aureus; I70.462 Atherosclerosis of autologous vein bypass graft(s) of the extremities with gangrene, left leg; L97.225 Non-pressure chronic ulcer of left calf with muscle involvement without evidence of necrosis; F17.200 Nicotine dependence, unspecified, uncomplicated; D62 Acute posthemorrhagic anemia; E61.1 Iron deficiency; E78.5 Hyperlipidemia, unspecified; F32.A Depression, unspecified; F41.9 Anxiety disorder, unspecified; T36.8X5A Adverse effect of other systemic antibiotics, initial encounter; G93.41 Metabolic encephalopathy; Z86.14 Personal history of Methicillin resistant Staphylococcus aureus infection; D63.1 Anemia in chronic kidney disease; I13.0 Hypertensive heart and chronic kidney disease with heart failure and stage 1 through stage 4 chronic kidney disease, or unspecified chronic kidney disease; N17.0 Acute kidney failure with tubular necrosis; T81.30XA Disruption of wound, unspecified, initial encounter; N18.9 Chronic kidney disease, unspecified; I42.9 Cardiomyopathy, unspecified; I50.23 Acute on chronic systolic (congestive) heart failure; Z66 Do not resuscitate; Z95.828 Presence of other vascular implants and grafts; F10.10 Alcohol abuse, uncomplicated; J44.9 Chronic obstructive pulmonary disease, unspecified; Z79.01 Long term (current) use of anticoagulants; R25.1 Tremor, unspecified; R27.0 Ataxia, unspecified; R63.30 Feeding difficulties, unspecified; L03.116 Cellulitis of left lower limb; N14.19 Nephropathy induced by other drugs, medicaments and biological substances; N28.89 Other specified disorders of kidney and ureter; Z86.718 Personal history of other venous thrombosis and embolism; Z79.82 Long term (current) use of aspirin; Z79.899 Other long term (current) drug therapy
CPT/HCPCS: 36415; 70450; 71045; 76770; 78452; 80048; 80053; 80202; 80306; 80320; 81001; 82140; 82728; 83540; 83550; 83605; 83735; 83880; 84484; 85025; 85027; 85610; 85730; 86850; 86900; 86901; 86920; 87040; 87086; 93005; 93017; 93308; 94640; 94760; 96360; 96361; 99285

== ENCOUNTER 2023-12-24 15:24 | Inpatient (IN) | payer OTHER ==
[2023-12-24] MEDS ORDERED: VANCOMYCIN IV PER PHARMACY 1 EACH MISC MISCELLANE PRN (15:59)
[2023-12-24] MEDS: HYDROmorphone 1 MG/ML 1 ML SYRINGE IVP STA (16:29)
--- NOTE | 2023-12-24 16:38 | ED ---
General Adult HPI - General Chief complaint: Extremity Injury, Lower Stated complaint: L Leg Infection Time Seen by Provider: 12/24/23 16:00 Source: patient, EMS, RN notes reviewed, old records reviewed Mode of arrival: EMS Limitations: physical limitation - History of Present Illness Initial comments: This is a 58-year-old male who had a recent amputation of the left leg below the knee. Patient states it was about a week ago. Patient was sent in because the wound does not appear to be healing there appears to be pus coming from the wound and the opening is becoming larger and almost circumferential. Patient agrees that it is getting worse but he denies any fevers chills he denies increased pain. Patient states that is painful but it has been unchanged. Patient denies any injury to that leg since he has been in the custodial - Related Data Home Medications Medication Instructions Recorded Confirmed Acetaminophen [Tylenol Arthritis] 650 mg PO Q6H PRN 11/05/23 12/24/23 Citalopram Hydrobromide [CeleXA] 40 mg PO DAILY 11/05/23 12/24/23 Naloxone HCl [Narcan] 4 mg NASAL ONCE PRN 11/05/23 12/24/23 Metoprolol Succinate (ER) [Toprol 25 mg PO DAILY 11/22/23 12/24/23 XL] Rivaroxaban [Xarelto] 2.5 mg PO BID 11/22/23 12/24/23 Tamsulosin [Flomax] 0.4 mg PO DAILY 11/22/23 12/24/23 Ascorbic Acid [Vitamin C] 500 mg PO DAILY 12/05/23 12/24/23 Aspirin EC [Ecotrin Low Dose] 81 mg PO DAILY 12/05/23 12/24/23 Calcium Carbonate/Vitamin D3 1 tab PO DAILY 12/05/23 12/24/23 [Calcium 600 mg-Vit D3 5 mcg (200 unit)] oxyCODONE-APAP 7.5-325MG [Percocet 1 tab PO Q6H PRN 12/24/23 12/24/23 7.5-325 mg] Previous Rx's Medication Instructions Recorded Atorvastatin [Lipitor] 40 mg PO HS tab 09/10/23 Mirtazapine [Remeron] 15 mg PO HS tab 09/10/23 Thiamine [Vitamin B-1] 100 mg PO DAILY #30 tab 09/19/23 Amiodarone [Cordarone] 200 mg PO BID tab 12/20/23 Famotidine [Pepcid] 20 mg PO DAILY tab 12/20/23 Gabapentin [Neurontin] 300 mg PO BID #4 cap 12/20/23 Magnesium Oxide [Mag-Ox] 400 mg PO BID tab 12/20/23 Sennosides [Senokot] 8.6 mg PO BID tab 12/20/23 Sodium Bicarbonate Tab 650 mg PO BID tab 12/20/23 Allergies Allergy/AdvReac Type Severity Reaction Status Date / Time No Known Allergies Allergy Verified 12/24/23 16:46 Review of Systems ROS Statement: Those systems with pertinent positive or pertinent negative responses have been documented in the HPI. ROS Other: All systems not noted in ROS Statement are negative. Past Medical History Past Medical History: COPD, Vascular Disorder Additional Past Medical History / Comment(s): PVD, DVT R leg-recent R femoral popliteal bypass at [facility] 02/22/17, History of Any Multi-Drug Resistant Organisms: MRSA Date of last positivie culture/infection: 11/06/23 MRSA MDRO Source:: Left Leg Past Surgical History: Orthopedic Surgery Additional Past Surgical History / Comment(s): R fem pop bypass 02/22/17 [facility], bilateral knee arthroscopic surgeries. 12/17/23 L BTK amputation Past Anesthesia/Blood Transfusion Reactions: No Reported Reaction Additional Past Anesthesia/Blood Transfusion Reaction / Comment(s): Pt is currently receiving blood-no reaction at this time. Past Psychological History: Anxiety, Depression Smoking Status: Current every day smoker Past Alcohol Use History: Daily, Heavy Past Drug Use History: None Reported - Past Family History Mother Family Medical History: Cancer, Hyperlipidemia Additional Family Medical History / Comment(s): Mother had skin cancer. She is living. Father Family Medical History: Hyperlipidemia, Hypertension Additional Family Medical History / Comment(s): Father has heart condition. General Exam - General Exam Comments Initial Comments: GENERAL: Patient is well-developed and well-nourished. Patient is nontoxic and well- hydrated and is in mild distress. ENT: Neck is soft and supple. No significant lymphadenopathy is noted. Oropharynx is clear. Moist mucous membranes. Neck has full range of motion without eliciting any pain. EYES: The sclera were anicteric and conjunctiva were pink and moist. Extraocular movements were intact and pupils were equal round and reactive to light. Eyelids were unremarkable. PULMONARY: Unlabored respirations. Good breath sounds bilaterally. No audible rales rhonchi or wheezing was noted. CARDIOVASCULAR: There is a regular rate and rhythm without any murmurs gallops or rubs. ABDOMEN: Soft and nontender with normal bowel sounds. SKIN: Skin is clear with no lesions or rashes and otherwise unremarkable. NEUROLOGIC: Patient is alert and oriented x3. Cranial nerves II through XII are grossly intact. Motor and sensory are also intact. Normal speech, volume and content. Symmetrical smile. MUSCULOSKELETAL: Patient has a BKA on the left leg the wound does not appear to be healing there appears to be some necrotic tissue around the opening of the wound and pus from the wound as well. Patient had pictures from when the surgery was done and it looks like the edges of the wound are becoming further apart and there appears to be more erythema. LYMPHATICS: No significant lymphadenopathy is noted PSYCHIATRIC: Normal psychiatric evaluation. Limitations: physical limitation Course Vital Signs 12/24/23 12/24/23 12/24/23 15:30 17:42 18:00 Temperature 98.2 F 97.8 F Pulse Rate 56 L 54 L 64 Respiratory 20 18 18 Rate Blood Pressure 120/69 110/74 136/83 O2 Sat by Pulse 100 98 96 Oximetry Medical Decision Making - Medical Decision Making EKG is interpreted by myself but EKG shows a sinus bradycardia 54 bpm TN interval is 141 QRS is 95 QT interval is 445 QTc is 430. Patient's EKG shows no ST segment elevation or depression. Was pt. sent in by a medical professional or institution (, PA, [facility], urgent care, hospital, or custodial...) When possible be specific @ -Patient was sent in by the custodial Did you speak to anyone other than the patient for history (EMS, parent, family, police, friend...)? What history was obtained from this source @ -No Did you review nursing and triage notes (agree or disagree)? Why? @ -I reviewed and agree with nursing and triage notes Were old charts reviewed (outside hosp., previous admission, EMS record, old EKG, old radiological studies, urgent care reports/EKG's, custodial records)? Report findings @ -No old charts were reviewed Differential Diagnosis (chest pain, altered mental status, abdominal pain women, abdominal pain men, vaginal bleeding, weakness, fever, dyspnea, syncope, headache, dizziness, GI bleed, back pain, seizure, CVA, palpatations, mental health, musculoskeletal)? @ -CBC MDM differential fever EKG interpreted by me (3pts min.). @ -As above X-rays interpreted by me (1pt min.). @ -None done CT interpreted by me (1pt min.). @ -None done U/S interpreted by me (1pt. min.). @ -None done What testing was considered but not performed or refused? (CT, X-rays, U/S, labs)? Why? @ -None What meds were considered but not given or refused? Why? @ -None Did you discuss the management of the patient with other professionals (professionals i.e. , PA, [facility], lab, RT, psych nurse, manager social media, commercial diver, teacher, district fire management officer, keycase assembler)? Give summary @ -Spoke with [facility]ist they agreed admit the patient. Was smoking cessation discussed for >3mins.? @ -No Was critical care preformed (if so, how long)? @ -No Were there social determinants of health that impacted care today? How? (Homelessness, low income, unemployed, alcoholism, drug addiction, transportation, low edu. Level, literacy, decrease access to med. care, snf, rehab)? @ -No Was there de-escalation of care discussed even if they declined (Discuss DNR or withdrawal of care, Hospice)? DNR status @ -No What co-morbidities impacted this encounter? (DM, HTN, Smoking, COPD, CAD, Cancer, CVA, ARF, Chemo, Hep., AIDS, mental health diagnosis, sleep apnea, morbid obesity)? @ -None Was patient admitted / discharged? Hospital course, mention meds given and route, prescriptions, significant lab abnormalities, going to OR and other pertinent info. @ -Patient has what appears to be a dehiscence of the wound and it appears to be infected. I spoke with [facility] hospitalist and they agreed admit the patient Undiagnosed new problem with uncertain prognosis? @ -No Drug Therapy requiring intensive monitoring for toxicity (Heparin, Nitro, Insulin, Cardizem)? @ -No Were any procedures done? @ -No Diagnosis/symptom? @ -78 creatinine infected wound Acute, or Chronic, or Acute on Chronic? @ -Acute Uncomplicated (without systemic symptoms) or Complicated (systemic symptoms)? @ -Complicated Side effects of treatment? @ -No Exacerbation, Progression, or Severe Exacerbation? @ -No Poses a threat to life or bodily function? How? (Chest pain, USA, ME, pneumonia, PE, COPD, DKA, ARF, appy, cholecystitis, CVA, Diverticulitis, Homicidal, Suicidal, threat to staff... and all critical care pts) @ -This could lead to sepsis and endorgan dysfunction - Lab Data Result diagrams: 12/24/23 16:08 12/24/23 16:08 Lab Results 12/24/23 12/24/23 12/24/23 Range/Units 16:08 16:08 16:08 WBC 11.9 H (3.8-10.6) k/uL RBC 3.29 L (4.30-5.90) m/uL Hgb 8.7 L (13.0-17.5) gm/dL Hct 28.4 L (39.0-53.0) % MCV 86.3 (80.0-100.0) fL MCH 26.5 (25.0-35.0) pg MCHC 30.7 L (31.0-37.0) g/dL RDW 16.2 H (11.5-15.5) % Plt Count 411 (150-450) k/uL MPV 7.5 Neutrophils % 74 % Lymphocytes % 12 % Monocytes % 6 % Eosinophils % 7 % Basophils % 1 % Neutrophils # 8.8 H (1.3-7.7) k/uL Lymphocytes # 1.4 (1.0-4.8) k/uL Monocytes # 0.7 (0-1.0) k/uL Eosinophils # 0.8 H (0-0.7) k/uL Basophils # 0.1 (0-0.2) k/uL Hypochromasia Moderate Anisocytosis Slight PT 11.7 (10.0-12.5) sec INR 1.1 (<1.2) APTT 29.3 (22.0-30.0) sec Sodium 137 (137-145) mmol/L Potassium 4.2 (3.5-5.1) mmol/L Chloride 106 (98-107) mmol/L Carbon Dioxide 26 (22-30) mmol/L Anion Gap 5 mmol/L BUN 33 H (9-20) mg/dL Creatinine 2.87 H (0.66-1.25) mg/dL Est GFR (CKD-EPI)AfAm 26 (>60 ml/min/1.73 sqM) Est GFR (CKD-EPI)NonAf 23 (>60 ml/min/1.73 sqM) Glucose 90 (74-99) mg/dL Plasma Lactic Acid Rajeev (0.7-2.0) mmol/L Calcium 7.7 L (8.4-10.2) mg/dL Total Bilirubin 0.3 (0.2-1.3) mg/dL AST 37 (17-59) U/L ALT 28 (4-49) U/L Alkaline Phosphatase 147 H (38-126) U/L Total Protein 6.0 L (6.3-8.2) g/dL Albumin 2.6 L (3.5-5.0) g/dL 12/24/23 Range/Units 16:08 WBC (3.8-10.6) k/uL RBC (4.30-5.90) m/uL Hgb (13.0-17.5) gm/dL Hct (39.0-53.0) % MCV (80.0-100.0) fL MCH (25.0-35.0) pg MCHC (31.0-37.0) g/dL RDW (11.5-15.5) % Plt Count (150-450) k/uL MPV Neutrophils % % Lymphocytes % % Monocytes % % Eosinophils % % Basophils % % Neutrophils # (1.3-7.7) k/uL Lymphocytes # (1.0-4.8) k/uL Monocytes # (0-1.0) k/uL Eosinophils # (0-0.7) k/uL Basophils # (0-0.2) k/uL Hypochromasia Anisocytosis PT (10.0-12.5) sec INR (<1.2) APTT (22.0-30.0) sec Sodium (137-145) mmol/L Potassium (3.5-5.1) mmol/L Chloride (98-107) mmol/L Carbon Dioxide (22-30) mmol/L Anion Gap mmol/L BUN (9-20) mg/dL Creatinine (0.66-1.25) mg/dL Est GFR (CKD-EPI)AfAm (>60 ml/min/1.73 sqM) Est GFR (CKD-EPI)NonAf (>60 ml/min/1.73 sqM) Glucose (74-99) mg/dL Plasma Lactic Acid Rajeev 1.2 (0.7-2.0) mmol/L Calcium (8.4-10.2) mg/dL Total Bilirubin (0.2-1.3) mg/dL AST (17-59) U/L ALT (4-49) U/L Alkaline Phosphatase (38-126) U/L Total Protein (6.3-8.2) g/dL Albumin (3.5-5.0) g/dL Disposition Clinical Impression: Deep incisional surgical site infection Disposition: ADMITTED IP TO THIS [facility] Referrals: Kierra Fisher DO [Primary Care Provider] - 1-2 days Time of Disposition: 20:01
[2023-12-24] MEDS: SODIUM CHLORIDE 0.9% 500 ML 500 ML IV SCH (16:43)
[2023-12-24] MEDS: PIPERACILLIN-TAZOBACTAM 3.375 GM in SODIUM CHLORIDE 0.9% 100 ML IVPB STA (16:43)
[2023-12-24 17:08] LABS: Anisocytosis Slight; Basophils # (A) 0.1 k/uL (0-0.2); Basophils % (A) 1 %; Eosinophils # (A) 0.8 k/uL (0-0.7); Eosinophils % (A) 7 %; HCT 28.4 % (39.0-53.0); HGB 8.7 gm/dL (13.0-17.5); Hypochromasia Moderate; Lymphocytes # (A) 1.4 k/uL (1.0-4.8); Lymphocytes % (A) 12 %; MCH 26.5 pg (25.0-35.0); MCHC 30.7 g/dL (31.0-37.0); MCV 86.3 fL (80.0-100.0); Mean Platelet Volume 7.5; Monocytes # (A) 0.7 k/uL (0-1.0); Monocytes % (A) 6 %; Neutrophils # (A) 8.8 k/uL (1.3-7.7); Neutrophils % (A) 74 %; Platelet Count 411 k/uL (150-450); RBC 3.29 m/uL (4.30-5.90); RDW 16.2 % (11.5-15.5); WBC 11.9 k/uL (3.8-10.6)
[2023-12-24 17:20] LABS: ALT 28 U/L (4-49); AST 37 U/L (17-59); African American GFR (CKD) 26 (>60 ml/min/1.73 sqM); Albumin 2.6 g/dL (3.5-5.0); Alkaline Phosphatase 147 U/L (38-126); Anion Gap 5 mmol/L; Blood Urea Nitrogen 33 mg/dL (9-20); Calcium 7.7 mg/dL (8.4-10.2); Carbon Dioxide 26 mmol/L (22-30); Chloride 106 mmol/L (98-107); Glucose 90 mg/dL (74-99); Non-African American GFR(CKD) 23 (>60 ml/min/1.73 sqM); Potassium 4.2 mmol/L (3.5-5.1); Sodium 137 mmol/L (137-145); Total Bilirubin 0.3 mg/dL (0.2-1.3)
[2023-12-24 17:21] LABS: INR 1.1 (<1.2); Partial Thromboplastin Time 29.3 sec (22.0-30.0); Prothrombin Time 11.7 sec (10.0-12.5)
[2023-12-24] MEDS: VANCOMYCIN 1,500 MG in SODIUM CHLORIDE 0.9% 500 ML 500 ML IVPB ONE (17:43)
[2023-12-24] MEDS: oxyCODONE-APAP 10-325MG 1 EACH TAB PO PRN (20:00)
[2023-12-24] MEDS: SODIUM CHLORIDE 0.9% 1,000 ML IV ONE (23:58)
--- NOTE | 2023-12-25 00:33 | XR ---
EXAM: XR Left Knee, 1 or 2 Views CLINICAL HISTORY: ITS.REASON XR Reason: Infection TECHNIQUE: Frontal and/or lateral views of the left knee. COMPARISON: No relevant prior studies available. FINDINGS: Bones/joints: Status post BKA. Distal cortical irregularity at the fibular amputation site. The tibial amputation cut is clean. The bones are osteopenic. Lucency at the tibial tuberosity is favored to represent focal osteopenia. Soft tissues: A few bubbles of soft tissue gas in the stomach. IMPRESSION: 1. Status post BKA. Distal cortical irregularity at the fibular amputation site. If there is concern for osteomyelitis consider MRI. 2. A few bubbles of soft tissue gas in the stomach.
[2023-12-25] MEDS: PIPERACILLIN-TAZOBACTAM 3.375 GM in SODIUM CHLORIDE 0.9% 100 ML IVPB SCH (01:23)
[2023-12-25] MEDS ORDERED: NALOXONE 0.4 MG/ML 1 ML VIAL IV PRN (06:37)
[2023-12-25 07:52] LABS: African American GFR (CKD) 28 (>60 ml/min/1.73 sqM); Non-African American GFR(CKD) 24 (>60 ml/min/1.73 sqM)
[2023-12-25] MEDS: VANCOMYCIN 1,500 MG in SODIUM CHLORIDE 0.9% 500 ML 500 ML IVPB SCH (09:02)
[2023-12-25] MEDS: MAGNESIUM OXIDE 400 MG TAB PO SCH (09:03)
[2023-12-25] MEDS: ASCORBIC ACID 500 MG TAB PO SCH (09:03)
[2023-12-25] MEDS: METOPROLOL SUCCINATE (ER) 25 MG TAB.ER.24H PO SCH (09:03)
[2023-12-25] MEDS: GABAPENTIN 300 MG CAP PO SCH (09:03)
[2023-12-25] MEDS: AMIODARONE 200 MG TAB PO SCH (09:03)
[2023-12-25] MEDS: ASPIRIN 81 MG PO SCH (09:03)
[2023-12-25] MEDS: FAMOTIDINE 20 MG TAB PO SCH (09:03)
[2023-12-25] MEDS: SENNOSIDES 8.6 MG TAB PO SCH (09:04)
[2023-12-25] MEDS: TAMSULOSIN 0.4 MG CAP.ER.24H PO SCH (09:04)
[2023-12-25] MEDS: THIAMINE 100 MG TAB PO SCH (09:04)
[2023-12-25] MEDS: SODIUM BICARBONATE TAB 650 MG TAB PO SCH (09:04)
--- NOTE | 2023-12-25 10:55 | P.GSCN ---
History of Present Illness Consult date: 12/25/23 Reason for Consult: Infected surgical incision Requesting physician: Blas Dangelo History of present illness: This is a pleasant 58-year-old male well-known to our services. Who was sent into the emergency department from [facility] for concerns for infected left lower extremity surgical incision. He recently underwent left below the knee amputation for nonhealing wound on 12/14/2023 and history of p eripheral arterial disease with left common femoral endarterectomy and femoral to below the knee popliteal artery bypass and left femoral popliteal bypass balloon angioplasty on 09/15/2023. Patient was discharged to [facility] for rehab. He states that Reinaldo from [facility] had seen him and was concerned for possible infection and recommended that he go to the emergency department. Patient denies any fevers or chills, there is some discomfort but no change in pain. Wound cultures were collected yesterday currently pending. He he has been afebrile. Leukocytosis on admission however improved from his recent hospitalization. Patient was discharged on 12/20/2023. On that hospitalization he was treated with IV antibiotics which were discontinued on discharge. He was supposed to follow-up with wound care center who he has followed in the past. Review of Systems A 14 point review systems was completed all pertinent positives and negatives as stated in the HPI. Past Medical History Past Medical History: COPD, Vascular Disorder Additional Past Medical History / Comment(s): PVD, DVT R leg-recent R femoral popliteal bypass at [facility] 02/22/17, History of Any Multi-Drug Resistant Organisms: MRSA Year Discovered:: 11/06/23 MRSA MDRO Source:: Left Leg Past Surgical History: Orthopedic Surgery Additional Past Surgical History / Comment(s): R fem pop bypass 02/22/17 [facility], bilateral knee arthroscopic surgeries. 12/17/23 L BTK amputation Past Anesthesia/Blood Transfusion Reactions: No Reported Reaction Additional Past Anesthesia/Blood Transfusion Reaction / Comm: . Past Psychological History: Anxiety, Depression Additional Psychological History / Comment(s): Pt resides alone Smoking Status: Current every day smoker Past Alcohol Use History: Daily, Heavy Additional Past Alcohol Use History / Comment(s): Pt started smoking around 1986 and quit 02/22/17. He states he used to drink about 2 drinks a day but quit all drinking on 02/22/17. Past Drug Use History: None Reported - Past Family History Mother Family Medical History: Cancer, Hyperlipidemia Additional Family Medical History / Comment(s): Mother had skin cancer. She is living. Father Family Medical History: Hyperlipidemia, Hypertension Additional Family Medical History / Comment(s): Father has heart condition. Medications and Allergies Home Medications Medication Instructions Recorded Confirmed Type Atorvastatin [Lipitor] 40 mg PO HS tab 09/10/23 12/24/23 Rx Mirtazapine [Remeron] 15 mg PO HS tab 09/10/23 12/24/23 Rx Thiamine [Vitamin B-1] 100 mg PO DAILY #30 tab 09/19/23 12/24/23 Rx Acetaminophen [Tylenol Arthritis] 650 mg PO Q6H PRN 11/05/23 12/24/23 History Citalopram Hydrobromide [CeleXA] 40 mg PO DAILY 11/05/23 12/24/23 History Naloxone HCl [Narcan] 4 mg NASAL ONCE PRN 11/05/23 12/24/23 History Metoprolol Succinate (ER) [Toprol 25 mg PO DAILY 11/22/23 12/24/23 History XL] Rivaroxaban [Xarelto] 2.5 mg PO BID 11/22/23 12/24/23 History Tamsulosin [Flomax] 0.4 mg PO DAILY 11/22/23 12/24/23 History Ascorbic Acid [Vitamin C] 500 mg PO DAILY 12/05/23 12/24/23 History Aspirin EC [Ecotrin Low Dose] 81 mg PO DAILY 12/05/23 12/24/23 History Calcium Carbonate/Vitamin D3 1 tab PO DAILY 12/05/23 12/24/23 History [Calcium 600 mg-Vit D3 5 mcg (200 unit)] Amiodarone [Cordarone] 200 mg PO BID tab 12/20/23 12/24/23 Rx Famotidine [Pepcid] 20 mg PO DAILY tab 12/20/23 12/24/23 Rx Gabapentin [Neurontin] 300 mg PO BID #4 cap 12/20/23 12/24/23 Rx Magnesium Oxide [Mag-Ox] 400 mg PO BID tab 12/20/23 12/24/23 Rx Sennosides [Senokot] 8.6 mg PO BID tab 12/20/23 12/24/23 Rx Sodium Bicarbonate Tab 650 mg PO BID tab 12/20/23 12/24/23 Rx oxyCODONE-APAP 7.5-325MG [Percocet 1 tab PO Q6H PRN 12/24/23 12/24/23 History 7.5-325 mg] Allergies Allergy/AdvReac Type Severity Reaction Status Date / Time No Known Allergies Allergy Verified 12/24/23 16:46 Surgical - Exam Vital Signs Temp Pulse Resp BP Pulse Ox 98.2 F 56 L 20 120/69 100 12/24/23 15:30 12/24/23 15:30 12/24/23 15:30 12/24/23 15:30 12/24/23 15:30 General appearance: The patient is alert, oriented, appears in no acute distress. HET: Head is normocephalic and atraumatic. Neck: Supple. Heart: Regular. Lungs: Equal expansion, normal respiratory effort. Abdomen: Soft, nontender, nondistended. Extremities: Left below the knee amputation surgical incision approximated with sutures, wound proximal to incision medial aspect of lower extremity from previous bypass. Some bleeding noted around wound bed. No purulent drainage noted, erythema surrounding incision, good capillary refill. Neurological: No focal deficits. Alert and oriented. Results - Labs 12/24/23 16:08 12/25/23 06:54 Abnormal Lab Results - Last 24 Hours (Table) 12/24/23 12/24/23 12/25/23 Range/Units 16:08 16:08 06:54 WBC 11.9 H (3.8-10.6) k/uL RBC 3.29 L (4.30-5.90) m/uL Hgb 8.7 L (13.0-17.5) gm/dL Hct 28.4 L (39.0-53.0) % MCHC 30.7 L (31.0-37.0) g/dL RDW 16.2 H (11.5-15.5) % Neutrophils # 8.8 H (1.3-7.7) k/uL Eosinophils # 0.8 H (0-0.7) k/uL BUN 33 H (9-20) mg/dL Creatinine 2.87 H 2.72 H (0.66-1.25) mg/dL Calcium 7.7 L (8.4-10.2) mg/dL Alkaline Phosphatase 147 H (38-126) U/L Total Protein 6.0 L (6.3-8.2) g/dL Albumin 2.6 L (3.5-5.0) g/dL Diabetes panel 12/24/23 12/25/23 Range/Units 16:08 06:54 Sodium 137 (137-145) mmol/L Potassium 4.2 (3.5-5.1) mmol/L Chloride 106 (98-107) mmol/L Carbon Dioxide 26 (22-30) mmol/L BUN 33 H (9-20) mg/dL Creatinine 2.87 H 2.72 H (0.66-1.25) mg/dL Glucose 90 (74-99) mg/dL Calcium 7.7 L (8.4-10.2) mg/dL AST 37 (17-59) U/L ALT 28 (4-49) U/L Alkaline Phosphatase 147 H (38-126) U/L Total Protein 6.0 L (6.3-8.2) g/dL Albumin 2.6 L (3.5-5.0) g/dL Calcium panel 12/24/23 Range/Units 16:08 Calcium 7.7 L (8.4-10.2) mg/dL Albumin 2.6 L (3.5-5.0) g/dL Pituitary panel 12/24/23 12/25/23 Range/Units 16:08 06:54 Sodium 137 (137-145) mmol/L Potassium 4.2 (3.5-5.1) mmol/L Chloride 106 (98-107) mmol/L Carbon Dioxide 26 (22-30) mmol/L BUN 33 H (9-20) mg/dL Creatinine 2.87 H 2.72 H (0.66-1.25) mg/dL Glucose 90 (74-99) mg/dL Calcium 7.7 L (8.4-10.2) mg/dL Adrenal panel 12/24/23 12/25/23 Range/Units 16:08 06:54 Sodium 137 (137-145) mmol/L Potassium 4.2 (3.5-5.1) mmol/L Chloride 106 (98-107) mmol/L Carbon Dioxide 26 (22-30) mmol/L BUN 33 H (9-20) mg/dL Creatinine 2.87 H 2.72 H (0.66-1.25) mg/dL Glucose 90 (74-99) mg/dL Calcium 7.7 L (8.4-10.2) mg/dL Total Bilirubin 0.3 (0.2-1.3) mg/dL AST 37 (17-59) U/L ALT 28 (4-49) U/L Alkaline Phosphatase 147 H (38-126) U/L Total Protein 6.0 L (6.3-8.2) g/dL Albumin 2.6 L (3.5-5.0) g/dL Assessment and Plan Assessment: 1. Gangrene left foot with recent left below the knee amputation 2. Nonhealing left lower extremity wound, previous bypass wound dehiscence 3. Peripheral arterial disease with critical limb ischemia left lower extremity status post left common femoral endarterectomy and femoral to below-knee popliteal bypass 4. Chronic anemia Plan: 1. Wet-to-dry dressing change with Dakin solution, twice daily, wrapped with Kerlix 2. Wound cultures received, currently pending 3. Antibiotics per recommendations from infectious disease 4. Continue with dressing changes as ordered, need to allow for incision to dry. Discussed with patient again there is still high probability patient may require [id number] amputation. Will continue with supportive care at this time. 5. Rest of medical management per primary medical team. Thank you for this consultation, we will continue to follow. The impression and plan of care has been dictated as directed. I performed a history and examination of this patient, discussed the same with the dictator. I agree with the dictator's note ,documented as a scribe. Any additional findings or plans will be noted.
--- NOTE | 2023-12-25 14:58 | P.HPIM ---
History of Present Illness H&P Date: 12/25/23 History of present illness; patient is a 58-year-old gentleman with past medical history significant for peripheral disease, COPD who recently underwent BKA secondary to gangrene of left lower extremity who presented to the ER because of left BKA site not healing well. Stated that he has been noticing that the wound is not healing well, noticed discharge which looked like pus coming from the wound. There was no complaint of fever or chills. Patient is complaining of increasing pain at the stump site. There is no complaint of nausea vomiting. Denies any abdominal pain. Because of the symptoms, patient came to the ER Initial lab work done in the ER showed WBC 11.9, hemoglobin 8.7, platelet count 411, sodium 137, potassium 4.2, BUN 33, creatinine 2.87, lactate 1.2, alk phos 147 EKG done in the ER showed heart rate of 54 , no ST segment elevation or depression seen, no T-wave inversions seen. X-ray of left knee done showed status BKA, distal cortical irregularity at fibular amputation site, concerning for osteo Patient admitted to internal medicine service REVIEW OF SYSTEMS: CONSTITUTIONAL: As mentioned above HEENT: No recent visual problems or hearing problems. Denied any sore throat. CARDIOVASCULAR: No chest pain, orthopnea, PND, no palpitations, no syncope. PULMONARY: No shortness of breath, no cough, no hemoptysis. GASTROINTESTINAL: No diarrhea, no nausea, no vomiting, no abdominal pain. NEUROLOGICAL: No headaches, no weakness, no numbness. HEMATOLOGICAL: Denies any bleeding or petechiae. GENITOURINARY: Denies any burning micturition, frequency, or urgency. MUSCULOSKELETAL/RHEUMATOLOGICAL: As mentioned above ENDOCRINE: Denies any polyuria or polydipsia. The rest of the 14-point review of systems is negative. PHYSICAL EXAMINATION: GENERAL: The patient is alert and oriented x3, not in any acute distress. Well developed, well nourished. HEENT: Pupils are round and equally reacting to light. EOMI. No scleral icterus. No conjunctival pallor. Normocephalic, atraumatic. No pharyngeal erythema. No thyromegaly. CARDIOVASCULAR: S1 and S2 present. No murmurs, rubs, or gallops. PULMONARY: Chest is clear to auscultation, no wheezing or crackles. ABDOMEN: Soft, nontender, nondistended, normoactive bowel sounds. No palpable organomegaly. MUSCULOSKELETAL: Left BKA seen EXTREMITIES: No cyanosis, clubbing, or pedal edema. NEUROLOGICAL: Gross neurological examination did not reveal any focal deficits. SKIN: No rashes. Assessment and plan Surgical site infection of left BKA Recent gangrene of left lower extremity leading to BKA History of peripheral vascular disease with chronic critical left lower extremity ischemia s/p left common femoral and endarterectomy and left femoral- popliteal bypass Left sided renal mass COPD Nicotine dependence Anxiety and depression Monitor vital signs Monitor CBC Monitor CMP Continue telemetry monitoring Open blood culture Ordered wound cultures Continue wound care Start IV Zosyn and vancomycin Consult vascular surgery Consult ID Labs and medication were reviewed.. Continue same treatment. Continue with symptomatic treatment. Resume home medication. Monitor labs and vitals. DVT and GI prophylaxis. Further recommendations as per clinical course of the patient Dictation was produced using [employer] dictation software. please excuse any grammatical, word or spelling errors. Past Medical History Past Medical History: COPD, Vascular Disorder Additional Past Medical History / Comment(s): PVD, DVT R leg-recent R femoral popliteal bypass at [facility] 02/22/17, History of Any Multi-Drug Resistant Organisms: MRSA Date of last positivie culture/infection: 11/06/23 MRSA MDRO Source:: Left Leg Past Surgical History: Orthopedic Surgery Additional Past Surgical History / Comment(s): R fem pop bypass 02/22/17 [facility], abilio ateral knee arthroscopic surgeries. 12/17/23 L BTK amputation Past Anesthesia/Blood Transfusion Reactions: No Reported Reaction Additional Past Anesthesia/Blood Transfusion Reaction / Comment(s): . Past Psychological History: Anxiety, Depression Additional Psychological History / Comment(s): Pt resides alone Smoking Status: Current every day smoker Past Alcohol Use History: Daily, Heavy Additional Past Alcohol Use History / Comment(s): Pt started smoking around 1986 and quit 02/22/17. He states he used to drink about 2 drinks a day but quit all drinking on 02/22/17. Past Drug Use History: None Reported - Past Family History Mother Family Medical History: Cancer, Hyperlipidemia Additional Family Medical History / Comment(s): Mother had skin cancer. She is living. Father Family Medical History: Hyperlipidemia, Hypertension Additional Family Medical History / Comment(s): Father has heart condition. Medications and Allergies Home Medications Medication Instructions Recorded Confirmed Type Atorvastatin [Lipitor] 40 mg PO HS tab 09/10/23 12/24/23 Rx Mirtazapine [Remeron] 15 mg PO HS tab 09/10/23 12/24/23 Rx Thiamine [Vitamin B-1] 100 mg PO DAILY #30 tab 09/19/23 12/24/23 Rx Acetaminophen [Tylenol Arthritis] 650 mg PO Q6H PRN 11/05/23 12/24/23 History Citalopram Hydrobromide [CeleXA] 40 mg PO DAILY 11/05/23 12/24/23 History Naloxone HCl [Narcan] 4 mg NASAL ONCE PRN 11/05/23 12/24/23 History Metoprolol Succinate (ER) [Toprol 25 mg PO DAILY 11/22/23 12/24/23 History XL] Rivaroxaban [Xarelto] 2.5 mg PO BID 11/22/23 12/24/23 History Tamsulosin [Flomax] 0.4 mg PO DAILY 11/22/23 12/24/23 History Ascorbic Acid [Vitamin C] 500 mg PO DAILY 12/05/23 12/24/23 History Aspirin EC [Ecotrin Low Dose] 81 mg PO DAILY 12/05/23 12/24/23 History Calcium Carbonate/Vitamin D3 1 tab PO DAILY 12/05/23 12/24/23 History [Calcium 600 mg-Vit D3 5 mcg (200 unit)] Amiodarone [Cordarone] 200 mg PO BID tab 12/20/23 12/24/23 Rx Famotidine [Pepcid] 20 mg PO DAILY tab 12/20/23 12/24/23 Rx Gabapentin [Neurontin] 300 mg PO BID #4 cap 12/20/23 12/24/23 Rx Magnesium Oxide [Mag-Ox] 400 mg PO BID tab 12/20/23 12/24/23 Rx Sennosides [Senokot] 8.6 mg PO BID tab 12/20/23 12/24/23 Rx Sodium Bicarbonate Tab 650 mg PO BID tab 12/20/23 12/24/23 Rx oxyCODONE-APAP 7.5-325MG [Percocet 1 tab PO Q6H PRN 12/24/23 12/24/23 History 7.5-325 mg] Allergies Allergy/AdvReac Type Severity Reaction Status Date / Time No Known Allergies Allergy Verified 12/24/23 16:46 Physical Exam Vitals: Vital Signs Temp Pulse Pulse Resp BP BP Pulse Ox 12/25/23 07:15 97.6 F 56 L 16 116/61 95 12/25/23 01:16 97.9 F 61 18 113/64 100 12/25/23 01:00 97.6 F 61 16 120/69 97 12/24/23 18:00 97.8 F 64 18 136/83 96 12/24/23 17:42 54 L 18 110/74 98 12/24/23 15:30 98.2 F 56 L 20 120/69 100 Intake and Output 12/24/23 12/25/23 12/25/23 22:59 06:59 14:59 Intake Total 400 Output Total 300 Balance 100 Intake: Intake, IV Titration 400 Amount Piperacillin-Tazobactam 3 100 .375 gm In Sodium Chloride 0.9% 100 ml @ 25 mls/hr IVPB Q8HR [facility] Rx# :[id number] Sodium Chloride 0.9% 1, 300 000 ml @ 75 mls/hr IV . [id number] ONE Rx#:[id number] Output: Urine 300 Other: Weight 99.79 kg Results CBC & Chem 7: 12/24/23 16:08 12/25/23 06:54 Labs: Abnormal Lab Results - Last 24 Hours (Table) 12/24/23 12/24/23 12/25/23 Range/Units 16:08 16:08 06:54 WBC 11.9 H (3.8-10.6) k/uL RBC 3.29 L (4.30-5.90) m/uL Hgb 8.7 L (13.0-17.5) gm/dL Hct 28.4 L (39.0-53.0) % MCHC 30.7 L (31.0-37.0) g/dL RDW 16.2 H (11.5-15.5) % Neutrophils # 8.8 H (1.3-7.7) k/uL Eosinophils # 0.8 H (0-0.7) k/uL BUN 33 H (9-20) mg/dL Creatinine 2.87 H 2.72 H (0.66-1.25) mg/dL Calcium 7.7 L (8.4-10.2) mg/dL Alkaline Phosphatase 147 H (38-126) U/L Total Protein 6.0 L (6.3-8.2) g/dL Albumin 2.6 L (3.5-5.0) g/dL Thrombosis Risk Factor Assmnt - Choose All That Apply Any of the Below Risk Factors Present?: Yes Each Factor Represents 1 point: Age 41-60 years, Obesity (BMI >25) Other Risk Factors: Yes Other congenital or acquired thrombophilia - If yes, enter type in comment: No Thrombosis Risk Factor Assessment Total Risk Factor Score: 2 Thrombosis Risk Factor Assessment Level: Low Risk
[2023-12-25] MEDS: CEFEPIME 2 GM in SODIUM CHLORIDE 0.9% 100 ML IVPB SCH (15:02)
[2023-12-25] MEDS: SODIUM HYPOCHLORITE 0.25% 480 ML BOT MISCELLANE SCH (15:07)
[2023-12-25] MEDS: ATORVASTATIN 40 MG TAB PO SCH (21:44)
[2023-12-25] MEDS: RIVAROXABAN 2.5 MG TABLET PO SCH (22:32)
[2023-12-25] MEDS: MIRTAZAPINE 15 MG TAB PO SCH (22:32)
--- NOTE | 2023-12-25 22:42 | P.CONS ---
History of Present Illness - Reason for Consult Consult date: 12/25/23 Infected surgical incision Requesting physician: Blas Dangelo - Chief Complaint Left BKA stump incision dehiscence pain and drainage x 2 days - History of Present Illness Patient is a 58-year-old male with a past medical history significant for COPD DVT right lower extremity in this patient dealing with the left foot gangrene cellulitis failing medical therapy and the patient is recently status post left below the knee amputation patient was discharged back to the long-term last Sunday and apparently the patient was doing well on Sunday as reported by the member at the bedside the next day they noticed did have dehiscence of his left BKA wound and some purulent drainage patient will be complaining of pain to the left BKA stump to be sharp moderate intensity without any radiation with associated swelling and did have some drainage denies high-grade fever and did not have any fever on presentation to the hospital patient was not tachycardic hypotensive or hypoxic patient did have a white count of 11.9 with a left shift BUN/creatinine has been elevated liver enzymes are normal patient was started on vancomycin and Zosyn infectious disease was consulted for further management of antibiotic therapy did have x-ray of the knee distal cortical irregularity at the fibular amputation site few bubbles of soft tissue gas Review of Systems Positive point and negatives has been mentioned in the HPI, complete review of systems was performed and all other systems are negative Past Medical History Past Medical History: COPD, Vascular Disorder Additional Past Medical History / Comment(s): PVD, DVT R leg-recent R femoral popliteal bypass at [facility] 02/22/17, History of Any Multi-Drug Resistant Organisms: MRSA Year Discovered:: 11/06/23 MRSA MDRO Source:: Left Leg Past Surgical History: Orthopedic Surgery Additional Past Surgical History / Comment(s): R fem pop bypass 02/22/17 [facility], bilateral knee arthroscopic surgeries. 12/17/23 L BTK amputation Past Anesthesia/Blood Transfusion Reactions: No Reported Reaction Additional Past Anesthesia/Blood Transfusion Reaction / Comm: . Past Psychological History: Anxiety, Depression Additional Psychological History / Comment(s): Pt resides alone Smoking Status: Current every day smoker Past Alcohol Use History: Daily, Heavy Additional Past Alcohol Use History / Comment(s): Pt started smoking around 1986 and quit 02/22/17. He states he used to drink about 2 drinks a day but quit all drinking on 02/22/17. Past Drug Use History: None Reported - Past Family History Mother Family Medical History: Cancer, Hyperlipidemia Additional Family Medical History / Comment(s): Mother had skin cancer. She is living. Father Family Medical History: Hyperlipidemia, Hypertension Additional Family Medical History / Comment(s): Father has heart condition. Medications and Allergies Home Medications Medication Instructions Recorded Confirmed Type Atorvastatin [Lipitor] 40 mg PO HS tab 09/10/23 12/24/23 Rx Mirtazapine [Remeron] 15 mg PO HS tab 09/10/23 12/24/23 Rx Thiamine [Vitamin B-1] 100 mg PO DAILY #30 tab 09/19/23 12/24/23 Rx Acetaminophen [Tylenol Arthritis] 650 mg PO Q6H PRN 11/05/23 12/24/23 History Citalopram Hydrobromide [CeleXA] 40 mg PO DAILY 11/05/23 12/24/23 History Naloxone HCl [Narcan] 4 mg NASAL ONCE PRN 11/05/23 12/24/23 History Metoprolol Succinate (ER) [Toprol 25 mg PO DAILY 11/22/23 12/24/23 History XL] Rivaroxaban [Xarelto] 2.5 mg PO BID 11/22/23 12/24/23 History Tamsulosin [Flomax] 0.4 mg PO DAILY 11/22/23 12/24/23 History Ascorbic Acid [Vitamin C] 500 mg PO DAILY 12/05/23 12/24/23 History Aspirin EC [Ecotrin Low Dose] 81 mg PO DAILY 12/05/23 12/24/23 History Calcium Carbonate/Vitamin D3 1 tab PO DAILY 12/05/23 12/24/23 History [Calcium 600 mg-Vit D3 5 mcg (200 unit)] Amiodarone [Cordarone] 200 mg PO BID tab 12/20/23 12/24/23 Rx Famotidine [Pepcid] 20 mg PO DAILY tab 12/20/23 12/24/23 Rx Gabapentin [Neurontin] 300 mg PO BID #4 cap 12/20/23 12/24/23 Rx Magnesium Oxide [Mag-Ox] 400 mg PO BID tab 12/20/23 12/24/23 Rx Sennosides [Senokot] 8.6 mg PO BID tab 12/20/23 12/24/23 Rx Sodium Bicarbonate Tab 650 mg PO BID tab 12/20/23 12/24/23 Rx Pantoprazole [Protonix] 40 mg PO AC-BRKFST tab 01/09/24 Rx oxyCODONE-APAP 7.5-325MG [Percocet 1 tab PO Q12H PRN #10 tab 01/09/24 Rx 7.5-325 mg] Allergies Allergy/AdvReac Type Severity Reaction Status Date / Time No Known Allergies Allergy Verified 12/24/23 16:46 Physical Exam Vitals: Vital Signs Temp Pulse Pulse Resp BP BP Pulse Ox 12/25/23 07:15 97.6 F 56 L 16 116/61 95 12/25/23 01:16 97.9 F 61 18 113/64 100 12/25/23 01:00 97.6 F 61 16 120/69 97 12/24/23 18:00 97.8 F 64 18 136/83 96 12/24/23 17:42 54 L 18 110/74 98 12/24/23 15:30 98.2 F 56 L 20 120/69 100 Intake and Output 12/24/23 12/25/23 12/25/23 22:59 06:59 14:59 Intake Total 400 Output Total 300 Balance 100 Intake: Intake, IV Titration 400 Amount Piperacillin-Tazobactam 3 100 .375 gm In Sodium Chloride 0.9% 100 ml @ 25 mls/hr IVPB Q8HR [facility] Rx# :[id number] Sodium Chloride 0.9% 1, 300 000 ml @ 75 mls/hr IV . [id number] ONE Rx#:[id number] Output: Urine 300 Other: Voiding Method Urinal Weight 99.79 kg GENERAL DESCRIPTION: Middle-aged male lying in bed, no distress. No tachypnea or accessory muscle of respiration use. HEENT: Shows Pallor , no scleral icterus. Oral mucous membrane is dry. No phary ngeal erythema or thrush NECK: Trachea central, no thyromegaly. LUNGS: Unlabored breathing. Clear to auscultation anteriorly. No wheeze or crackle. HEART: S1, S2, regular rate and rhythm. No loud murmur ABDOMEN: Soft, no tenderness , guarding or rigidity, no organomegaly EXTREMITIES: Left BKA stump incision dehiscence with swelling redness and drainage SKIN: No rash, no masses palpable. NEUROLOGICAL: The patient is awake, alert, oriented x3, mood and affect normal. Results CBC & Chem 7: 01/09/24 11:16 01/08/24 08:32 Labs: Abnormal Lab Results - Last 24 Hours (Table) 12/24/23 12/24/23 12/25/23 Range/Units 16:08 16:08 06:54 WBC 11.9 H (3.8-10.6) k/uL RBC 3.29 L (4.30-5.90) m/uL Hgb 8.7 L (13.0-17.5) gm/dL Hct 28.4 L (39.0-53.0) % MCHC 30.7 L (31.0-37.0) g/dL RDW 16.2 H (11.5-15.5) % Neutrophils # 8.8 H (1.3-7.7) k/uL Eosinophils # 0.8 H (0-0.7) k/uL BUN 33 H (9-20) mg/dL Creatinine 2.87 H 2.72 H (0.66-1.25) mg/dL Calcium 7.7 L (8.4-10.2) mg/dL Alkaline Phosphatase 147 H (38-126) U/L Total Protein 6.0 L (6.3-8.2) g/dL Albumin 2.6 L (3.5-5.0) g/dL Microbiology - Last 24 Hours (Table) 12/24/23 16:08 Gram Stain - Preliminary Leg - Left Assessment and Plan (1) Cellulitis of left leg Status: Acute Code(s): L03.116 - CELLULITIS OF LEFT LOWER LIMB SNOMED Code(s): 75016024522054242 (2) Infected wound Status: Acute Code(s): T14.8XXA - OTHER INJURY OF UNSPECIFIED BODY REGION, INITIAL ENCOUNTER; L08.9 - LOCAL INFECTION OF THE SKIN AND SUBCUTANEOUS TISSUE, UNSP SNOMED Code(s): 84294753 (3) Leukocytosis Status: Acute Code(s): D72.829 - ELEVATED WHITE BLOOD CELL COUNT, UNSPECIFIED SNOMED Code(s): 975747210 Plan: 1patient presented to hospital with left BKA stump incision dehiscence cellulitis will need to cover for the resistant gram-positive as well as gram- negative keeping in mind recent multiple admission to the hospital 2-patient with renal sufficiency high risk of nephrotoxicity from vancomycin 3-discontinue vancomycin, start the patient on daptomycin Zosyn has been adjusted to cefepime while waiting for the culture to finalize 4local wound care per the surgical team We will follow on clinical condition and cultures to further adjust medication if needed Thank you for this consultation we will follow the patient along with you Dictation was produced using [employer] dictation software. please excuse any grammatical, word or spelling errors. Time with Patient: Greater than 30
[2023-12-26 06:11] LABS: African American GFR (CKD) 25 (>60 ml/min/1.73 sqM); Non-African American GFR(CKD) 22 (>60 ml/min/1.73 sqM)
--- NOTE | 2023-12-26 10:50 | P.PN ---
Subjective Progress Note Date: 12/26/23 Principal diagnosis: Recent left BKA Patient seen and examined today as a follow-up. He is sitting up at the side of the bed. He has a dressing in place to left surgical site with minimal drainage. States he is having phantom pain to the left leg and feels that he still has a foot and toes. He has been afebrile, denies any fevers, chills, shortness of breath, chest pain, or abdominal pain. Wound cultures are currently pending, preliminary gram-negative bacilli. He was started on IV antibiotics and infectious diseases following. Objective - Vital Signs Vital signs: Vital Signs Temp 98.3 F 12/26/23 07:17 Pulse 62 12/26/23 07:17 Resp 16 12/26/23 07:17 BP 111/65 12/26/23 07:17 Pulse Ox 95 12/26/23 07:17 FiO2 Intake & Output 12/25/23 12/26/23 12/26/23 18:59 06:59 18:59 Intake Total 590 Output Total 600 400 Balance -600 190 Intake: Oral 590 Output: Urine 600 400 Other: Voiding Method Urinal - Exam General appearance: The patient is alert, oriented, appears in no acute distress. HET: Head is normocephalic and atraumatic. Pupils are equal and reactive. Neck: Supple. Abdomen: Soft, nondistended. Extremities: Bilateral lower extremity swelling, left greater than right. Left BKA stump with dressing in place. Neurological: No focal deficits. Strength and sensation are grossly intact. - Labs CBC & Chem 7: 12/24/23 16:08 12/26/23 05:27 Labs: Abnormal Lab Results - Last 24 Hours (Table) 12/26/23 Range/Units 05:27 Creatinine 2.98 H (0.66-1.25) mg/dL Microbiology - Last 24 Hours (Table) 12/24/23 16:08 Blood Culture - Preliminary Blood 12/24/23 16:08 Blood Culture - Preliminary Blood 12/24/23 16:08 Gram Stain - Preliminary Leg - Left Wound Culture - Preliminary Gram Neg Bacilli Assessment and Plan Assessment: 1. Gangrene left foot with recent left below the knee amputation 2. Nonhealing left lower extremity wound, previous bypass wound dehiscence 3. Peripheral arterial disease with critical limb ischemia left lower extremity status post left common femoral endarterectomy and femoral to below-knee popliteal bypass 4. Chronic anemia Plan: 1. Wet-to-dry dressing change with Dakin solution, twice daily, wrapped with Kerlix 2. Wound cultures received, currently pending 3. Antibiotics per recommendations from infectious disease 4. Continue with dressing changes as ordered, need to allow for incision to dry. Discussed with patient again there is still high probability patient may require [id number] amputation. Will continue with supportive care at this time. 5. Rest of medical management per primary medical team. Thank you for this consultation, we will continue to follow. The impression and plan of care has been dictated as directed. Dr. Stearns I performed a history and examination of this patient, discussed the same with the dictator. I agree with the dictator's note ,documented as a scribe. Any additional findings or plans will be noted.
--- NOTE | 2023-12-26 13:37 | P.PN ---
Subjective Progress Note Date: 12/26/23 patient is a 58-year-old gentleman with past medical history significant for peripheral disease, COPD who recently underwent BKA secondary to gangrene of left lower extremity who presented to the ER because of left BKA site not healing well. Stated that he has been noticing that the wound is not healing well, noticed discharge which looked like pus coming from the wound. There was no complaint of fever or chills. Patient is complaining of increasing pain at the stump site. There is no complaint of nausea vomiting. Denies any abdominal pain. Because of the symptoms, patient came to the ER Initial lab work done in the ER showed WBC 11.9, hemoglobin 8.7, platelet count 411, sodium 137, potassium 4.2, BUN 33, creatinine 2.87, lactate 1.2, alk phos 147 EKG done in the ER showed heart rate of 54 , no ST segment elevation or depression seen, no T-wave inversions seen. X-ray of left knee done showed status BKA, distal cortical irregularity at fibular amputation site, concerning for osteo Patient admitted to internal medicine service 12/25. Patient seen examined. Sitting upright in the bed. No acute issues overnight REVIEW OF SYSTEMS: CONSTITUTIONAL: No fever, no malaise,. CARDIOVASCULAR: No chest pain, no palpitations, no syncope. PULMONARY: No shortness of breath, no cough, GASTROINTESTINAL: No diarrhea, no nausea, no vomiting, no abdominal pain. NEUROLOGICAL: No headaches, no weakness, PHYSICAL EXAMINATION: GENERAL: The patient is alert and oriented x3, not in any acute distress. Well developed, well nourished. HEENT: Pupils are round and equally reacting to light. EOMI. No scleral icterus. No conjunctival pallor. Normocephalic, atraumatic. No pharyngeal erythema. No thyromegaly. CARDIOVASCULAR: S1 and S2 present. No murmurs, rubs, or gallops. PULMONARY: Chest is clear to auscultation, no wheezing or crackles. ABDOMEN: Soft, nontender, nondistended, normoactive bowel sounds. No palpable organomegaly. MUSCULOSKELETAL: Left BKA seen EXTREMITIES: No cyanosis, clubbing, or pedal edema. NEUROLOGICAL: Gross neurological examination did not reveal any focal deficits. SKIN: No rashes. Assessment and plan Surgical site infection of left BKA Recent gangrene of left lower extremity leading to BKA History of peripheral vascular disease with chronic critical left lower extremity ischemia s/p left common femoral and endarterectomy and left femoral-popliteal bypass Left sided renal mass CKD stage IV COPD Nicotine dependence Anxiety and depression Monitor vital signs Monitor CBC Monitor CMP Continue telemetry monitoring Follow-up on blood culture Follow-up on wound cultures Continue wound care Antibiotics changed to IV cefepime Vascular surgery following, recommend no surgical intervention at this time ID following Labs and medication were reviewed.. Continue same treatment. Continue with symptomatic treatment. Resume home medication. Monitor labs and vitals. DVT and GI prophylaxis. Further recommendations as per clinical course of the patient Dictation was produced using [employer] dictation software. please excuse any grammatical, word or spelling errors. Objective - Vital Signs Vital signs: Vital Signs Temp 98.3 F 12/26/23 12:01 Pulse 59 L 12/26/23 12:01 Resp 16 12/26/23 12:01 BP 132/73 12/26/23 12:01 Pulse Ox 98 12/26/23 12:01 FiO2 Intake & Output 12/25/23 12/26/23 12/26/23 18:59 06:59 18:59 Intake Total 590 Output Total 600 400 500 Balance -600 190 -500 Intake: Oral 590 Output: Urine 600 400 500 Other: Voiding Method Urinal - Labs CBC & Chem 7: 12/24/23 16:08 12/26/23 05:27 Labs: Abnormal Lab Results - Last 24 Hours (Table) 12/26/23 Range/Units 05:27 Creatinine 2.98 H (0.66-1.25) mg/dL Microbiology - Last 24 Hours (Table) 12/24/23 16:08 Blood Culture - Preliminary Blood 12/24/23 16:08 Blood Culture - Preliminary Blood 12/24/23 16:08 Gram Stain - Preliminary Leg - Left Wound Culture - Preliminary Gram Neg Bacilli
[2023-12-27 06:25] LABS: African American GFR (CKD) 25 (>60 ml/min/1.73 sqM); Non-African American GFR(CKD) 22 (>60 ml/min/1.73 sqM)
--- NOTE | 2023-12-27 12:44 | P.PN ---
Subjective Progress Note Date: 12/27/23 patient is a 58-year-old gentleman with past medical history significant for peripheral disease, COPD who recently underwent BKA secondary to gangrene of left lower extremity who presented to the ER because of left BKA site not healing well. Stated that he has been noticing that the wound is not healing well, noticed discharge which looked like pus coming from the wound. There was no complaint of fever or chills. Patient is complaining of increasing pain at the stump site. There is no complaint of nausea vomiting. Denies any abdominal pain. Because of the symptoms, patient came to the ER Initial lab work done in the ER showed WBC 11.9, hemoglobin 8.7, platelet count 411, sodium 137, potassium 4.2, BUN 33, creatinine 2.87, lactate 1.2, alk phos 147 EKG done in the ER showed heart rate of 54 , no ST segment elevation or depression seen, no T-wave inversions seen. X-ray of left knee done showed status BKA, distal cortical irregularity at fibular amputation site, concerning for osteo Patient admitted to internal medicine service 12/25. Patient seen examined. Sitting upright in the bed. No acute issues overnight 12/26. Patient seen and examined. Antibiotics changed to daptomycin and meropenem. States he feels better. Denies any fever or chills. Denies any worsening pain in his left stump REVIEW OF SYSTEMS: CONSTITUTIONAL: No fever, no malaise,. CARDIOVASCULAR: No chest pain, no palpitations, no syncope. PULMONARY: No shortness of breath, no cough, GASTROINTESTINAL: No diarrhea, no nausea, no vomiting, no abdominal pain. NEUROLOGICAL: No headaches, no weakness, PHYSICAL EXAMINATION: GENERAL: The patient is alert and oriented x3, not in any acute distress. Well developed, well nourished. HEENT: Pupils are round and equally reacting to light. EOMI. No scleral icterus. No conjunctival pallor. Normocephalic, atraumatic. No pharyngeal erythema. No thyromegaly. CARDIOVASCULAR: S1 and S2 present. No murmurs, rubs, or gallops. PULMONARY: Chest is clear to auscultation, no wheezing or crackles. ABDOMEN: Soft, nontender, nondistended, normoactive bowel sounds. No palpable organomegaly. MUSCULOSKELETAL: Left BKA seen EXTREMITIES: No cyanosis, clubbing, or pedal edema. NEUROLOGICAL: Gross neurological examination did not reveal any focal deficits. SKIN: No rashes. Assessment and plan Surgical site infection of left BKA Recent gangrene of left lower extremity leading to BKA History of peripheral vascular disease with chronic critical left lower ex tremity ischemia s/p left common femoral and endarterectomy and left femoral- popliteal bypass Left sided renal mass CKD stage IV COPD Nicotine dependence Anxiety and depression Monitor vital signs Monitor CBC Monitor CMP Continue telemetry monitoring Follow-up on blood culture Follow-up on wound cultures Continue wound care Antibiotics changed to daptomycin and meropenem Vascular surgery following, recommend no surgical intervention at this time ID following Labs and medication were reviewed.. Continue same treatment. Continue with symptomatic treatment. Resume home medication. Monitor labs and vitals. DVT and GI prophylaxis. Further recommendations as per clinical course of the pat ient Dictation was produced using [employer] dictation software. please excuse any grammatical, word or spelling errors. Objective - Vital Signs Vital signs: Vital Signs Temp 98.5 F 12/27/23 07:22 Pulse 71 12/27/23 07:22 Resp 18 12/27/23 07:22 BP 115/52 12/27/23 07:22 Pulse Ox 95 12/27/23 07:22 FiO2 Intake & Output 12/26/23 12/27/23 12/27/23 18:59 06:59 18:59 Output Total 500 800 Balance -500 -800 Output: Urine 500 800 Other: Voiding Method Urinal Urinal - Labs CBC & Chem 7: 12/24/23 16:08 12/27/23 05:27 Labs: Abnormal Lab Results - Last 24 Hours (Table) 12/27/23 Range/Units 05:27 Creatinine 2.99 H (0.66-1.25) mg/dL Microbiology - Last 24 Hours (Table) 12/24/23 16:08 Blood Culture - Preliminary Blood 12/24/23 16:08 Blood Culture - Preliminary Blood 12/24/23 16:08 Gram Stain - Preliminary Leg - Left Wound Culture - Preliminary Klebsiella pneumoniae
[2023-12-27] MEDS: MEROPENEM 1 GM in SODIUM CHLORIDE 0.9% 100 ML IVPB SCH (12:50)
[2023-12-27 12:58] LABS: Basophils % (A) 0 %; Eosinophils # (A) 1.1 k/uL (0-0.7); Eosinophils % (A) 10 %; HCT 25.1 % (39.0-53.0); HGB 7.5 gm/dL (13.0-17.5); Hypochromasia Marked; Lymphocytes # (A) 0.8 k/uL (1.0-4.8); Lymphocytes % (A) 8 %; MCH 27.1 pg (25.0-35.0); MCHC 29.9 g/dL (31.0-37.0); MCV 90.5 fL (80.0-100.0); Mean Platelet Volume 8.9; Monocytes # (A) 0.7 k/uL (0-1.0); Monocytes % (A) 7 %; Neutrophils # (A) 7.9 k/uL (1.3-7.7); Neutrophils % (A) 74 %; Platelet Count 351 k/uL (150-450); RBC 2.77 m/uL (4.30-5.90); RDW 15.9 % (11.5-15.5); WBC 10.7 k/uL (3.8-10.6)
[2023-12-27 13:14] LABS: Anion Gap 5 mmol/L; Blood Urea Nitrogen 29 mg/dL (9-20); Calcium 7.5 mg/dL (8.4-10.2); Carbon Dioxide 25 mmol/L (22-30); Chloride 106 mmol/L (98-107); Glucose 82 mg/dL (74-99); Potassium 4.4 mmol/L (3.5-5.1); Sodium 136 mmol/L (137-145)
--- NOTE | 2023-12-27 13:38 | P.PN ---
Subjective Progress Note Date: 12/27/23 Principal diagnosis: Recent left BKA Patient seen and examined today as a follow-up. No acute changes through the night. Physical therapy at bedside working with patient at this time. Knee immobilizer in place. He has been afebrile. No complaints of pain at this time, otherwise well-managed. Objective - Vital Signs Vital signs: Vital Signs Temp 98.5 F 12/27/23 07:22 Pulse 71 12/27/23 07:22 Resp 18 12/27/23 07:22 BP 115/52 12/27/23 07:22 Pulse Ox 95 12/27/23 07:22 FiO2 Intake & Output 12/26/23 12/27/23 12/27/23 18:59 06:59 18:59 Output Total 500 800 Balance -500 -800 Output: Urine 500 800 Other: Voiding Method Urinal - Exam General appearance: The patient is alert, oriented, appears in no acute dis tress. HET: Head is normocephalic and atraumatic. Pupils are equal and reactive. Neck: Supple. Abdomen: Soft, nondistended. Extremities: Bilateral lower extremity swelling, left greater than right. Left BKA with knee immobilizer in place. Neurological: No focal deficits. Strength and sensation are grossly intact. - Labs CBC & Chem 7: 12/27/23 05:27 12/27/23 05:27 Labs: Abnormal Lab Results - Last 24 Hours (Table) 12/27/23 Range/Units 05:27 Creatinine 2.99 H (0.66-1.25) mg/dL Microbiology - Last 24 Hours (Table) 12/24/23 16:08 Blood Culture - Preliminary Blood 12/24/23 16:08 Blood Culture - Preliminary Blood 12/24/23 16:08 Gram Stain - Preliminary Leg - Left Wound Culture - Preliminary Klebsiella pneumoniae Assessment and Plan Assessment: 1. Gangrene left foot with recent left below the knee amputation 2. Nonhealing left lower extremity wound, previous bypass wound dehiscence 3. Peripheral arterial disease with critical limb ischemia left lower extremity status post left common femoral endarterectomy and femoral to below-knee popliteal bypass 4. Chronic anemia Plan: 1. Wet-to-dry dressing change with Dakin solution, twice daily, wrapped with Kerlix 2. Wound cultures received, currently pending 3. Antibiotics per recommendations from infectious disease 4. Continue with dressing changes as ordered, need to allow for incision to dry. Discussed with patient again there is still high probability patient may require [id number] amputation. Will continue with supportive care at this time. 5. Rest of medical management per primary medical team. Thank you for this consultation, we will continue to follow. The impression and plan of care has been dictated as directed. Dr. Robin I performed a history and examination of this patient, discussed the same with the dictator. I agree with the dictator's note ,documented as a scribe. Any additional findings or plans will be noted.
--- NOTE | 2023-12-27 17:12 | P.PN ---
Subjective Progress Note Date: 12/26/23 Principal diagnosis: Reason for follow-up is left BKA stump wound infection Patient is a 58-year-old male with a past medical history significant for COPD DVT right lower extremity in this patient dealing with the left foot gangrene cellulitis failing medical therapy and the patient is recently status post left below the knee amputation patient presented back to the hospital with left BKA surgical wound dehiscence and infection. On today's evaluation that is 12/26/2023, patient has been afebrile, patient is breathing comfortably and is currently on room air, patient denies having any significant cough no chest pain shortness of breath, patient denies nausea vom iting or diarrhea and no abdominal pain, patient denies any worsening pain to the left BKA stump wound Patient did have a creatinine 2.98 no CBC was done today Objective - Vital Signs Vital signs: Vital Signs Temp 98.3 F 12/26/23 12:01 Pulse 59 L 12/26/23 12:01 Resp 16 12/26/23 12:01 BP 132/73 12/26/23 12:01 Pulse Ox 98 12/26/23 12:01 FiO2 Intake & Output 12/25/23 12/26/23 12/26/23 18:59 06:59 18:59 Intake Total 590 Output Total 600 400 500 Balance -600 190 -500 Intake: Oral 590 Output: Urine 600 400 500 Other: Voiding Method Urinal - Exam GENERAL DESCRIPTION: Middle-aged male lying in bed in no distress RESPIRATORY SYSTEM: Unlabored breathing , decreased breath sounds at bases HEART: S1 S2 regular rate and rhythm , ABDOMEN: Soft , no tenderness EXTREMITIES: Left BKA stump wound is currently dressed minimal drainage on the dressing - Labs CBC & Chem 7: 12/27/23 05:27 12/27/23 05:27 Labs: Abnormal Lab Results - Last 24 Hours (Table) 12/26/23 Range/Units 05:27 Creatinine 2.98 H (0.66-1.25) mg/dL Microbiology - Last 24 Hours (Table) 12/24/23 16:08 Blood Culture - Preliminary Blood 12/24/23 16:08 Blood Culture - Preliminary Blood 12/24/23 16:08 Gram Stain - Preliminary Leg - Left Wound Culture - Preliminary Gram Neg Bacilli Assessment and Plan (1) Deep incisional surgical site infection Current Visit: Yes Status: Acute Code(s): T81.42XA - INFCT FOL A PROCEDURE, DEEP INCISIONAL SURGICAL SITE, INIT SNOMED Code(s): 227901961 (2) Cellulitis of left leg Current Visit: No Status: Acute Code(s): L03.116 - CELLULITIS OF LEFT LOWER LIMB SNOMED Code(s): 91778129526513060 Plan: 1patient presented to hospital with left BKA stump incision dehiscence cellulitis will need to cover for the resistant gram-positive as well as gram- negative keeping in mind recent multiple admission to the hospital 2-patient with renal sufficiency high risk of nephrotoxicity from vancomycin 3-patient to continue with the daptomycin and cefepime while waiting for the culture to finalize 4local wound care per the surgical team Dictation was produced using [employer] dictation software. please excuse any grammatical, word or spelling errors. Time with Patient: Less than 30
--- NOTE | 2023-12-27 17:13 | P.PN ---
Subjective Progress Note Date: 12/27/23 Principal diagnosis: Reason for follow-up is left BKA stump wound infection Patient is a 58-year-old male with a past medical history significant for COPD DVT right lower extremity in this patient dealing with the left foot gangrene cellulitis failing medical therapy and the patient is recently status post left below the knee amputation patient presented back to the hospital with left BKA surgical wound dehiscence and infection. On today's evaluation that is 12/27/2023, Patient is afebrile this morning and denies any chills, patient mention breathing comfortably and is currently on room air, patient denies any chest pain occasional cough patient denies any abd ominal pain no diarrhea no nausea no vomiting, patient pain to left BKA stump wound is currently controlled with the pain medication. Patient white count is 10.7 creatinine is 2.99 culture growing ESBL Klebsiella blood cultures pending Objective - Vital Signs Vital signs: Vital Signs Temp 98.5 F 12/27/23 07:22 Pulse 71 12/27/23 07:22 Resp 18 12/27/23 07:22 BP 115/52 12/27/23 07:22 Pulse Ox 95 12/27/23 07:22 FiO2 Intake & Output 12/26/23 12/27/23 12/27/23 18:59 06:59 18:59 Output Total 500 800 Balance -500 -800 Output: Urine 500 800 Other: Voiding Method Urinal Urinal - Exam GENERAL DESCRIPTION: Middle-aged male lying in bed in no distress RESPIRATORY SYSTEM: Unlabored breathing , decreased breath sounds at bases HEART: S1 S2 regular rate and rhythm , ABDOMEN: Soft , no tenderness EXTREMITIES: Left BKA stump wound with slough tissue some surrounding swelling - Labs CBC & Chem 7: 12/27/23 05:27 12/27/23 05:27 Labs: Abnormal Lab Results - Last 24 Hours (Table) 12/27/23 Range/Units 05:27 Creatinine 2.99 H (0.66-1.25) mg/dL Microbiology - Last 24 Hours (Table) 12/24/23 16:08 Blood Culture - Preliminary Blood 12/24/23 16:08 Blood Culture - Preliminary Blood 12/24/23 16:08 Gram Stain - Preliminary Leg - Left Wound Culture - Preliminary Klebsiella pneumoniae Assessment and Plan (1) Infection due to ESBL-producing Klebsiella pneumoniae Current Visit: Yes Status: Acute Code(s): A49.8 - OTHER BACTERIAL INFECTIONS OF UNSPECIFIED SITE; Z16.12 - EXTENDED SPECTRUM BETA LACTAMASE (ESBL) RESISTANCE SNOMED Code(s): 405534924 (2) Deep incisional surgical site infection Current Visit: Yes Status: Acute Code(s): T81.42XA - INFCT FOL A PROCEDURE, DEEP INCISIONAL SURGICAL SITE, INIT SNOMED Code(s): 414522324 (3) Cellulitis of left leg Current Visit: No Status: Acute Code(s): L03.116 - CELLULITIS OF LEFT LOWER LIMB SNOMED Code(s): 11273551679682899 Plan: 1patient presented to hospital with left BKA stump incision dehiscence cellulitis will need to cover for the resistant gram-positive as well as gram- negative keeping in mind recent multiple admission to the hospital 2-patient with renal sufficiency high risk of nephrotoxicity from vancomycin 3-patient culture currently growing ESBL Klebsiella we will discontinue cefepime start the patient on meropenem patient will need a PICC line and outpatient IV antibiotic because of extensive infection Dictation was produced using [employer] software. please excuse any grammatical, word or spelling errors.
[2023-12-28 10:45] LABS: Basophils # (A) 0.06 X 10*3/uL (0.00-0.10); Basophils % (A) 0.5 %; Eosinophils % (A) 16.7 %; HCT 27.3 % (39.6-50.0); HGB 7.9 g/dL (13.0-17.0); Lymphocytes # (A) 0.94 X 10*3/uL (0.90-5.00); Lymphocytes % (A) 8.3 %; MCH 25.5 pg (27.0-32.0); MCHC 28.9 g/dL (32.0-37.0); MCV 88.1 FL (80.0-97.0); Mean Platelet Volume 9.6 FL (9.5-12.2); Monocytes # (A) 0.87 X 10*3/uL (0.20-1.00); Monocytes % (A) 7.7 %; NRBC Per 100 WBC 0 X 10*3/uL (0.00-0.01); Neutrophils # (A) 7.49 X 10*3/uL (1.80-7.70); Platelet Count 386 X 10*3/uL (140-440); RDW 16.8 % (11.5-14.5); WBC 11.35 X 10*3/uL (4.50-10.00)
--- NOTE | 2023-12-28 12:46 | P.PN ---
Subjective Progress Note Date: 12/28/23 Principal diagnosis: Recent left BKA Patient seen and examined today as a follow-up. He is without any pain at this time. States that he was sore yesterday but he was doing a lot with physical therapy. Denies any fevers or chills. Objective - Vital Signs Vital signs: Vital Signs Temp 98.5 F 12/28/23 07:53 Pulse 69 12/28/23 07:53 Resp 19 12/28/23 07:53 BP 124/62 12/28/23 07:53 Pulse Ox 95 12/28/23 07:53 FiO2 Intake & Output 12/27/23 12/28/23 12/28/23 18:59 06:59 18:59 Intake Total 1320 590 240 Output Total 600 300 Balance 720 290 240 Intake: Oral 1320 590 240 Output: Urine 600 300 Other: Voiding Method Urinal Urinal Urinal # Voids 1 0 - Exam General appearance: The patient is alert, oriented, appears in no acute distress. HET: Head is normocephalic and atraumatic. Neck: Supple. Abdomen: Soft, nontender, nondistended. Extremities: Left below the knee amputation surgical incision approximated with sutures, wound proximal to incision medial aspect of lower extremity from previous bypass. Incision approximated with sutures with surrounding erythema areas of nonviable tissue and multiple lower extremity wounds. Neurological and: No focal deficits. Alert and oriented. - Labs CBC & Chem 7: 12/28/23 07:11 12/27/23 05:27 Labs: Abnormal Lab Results - Last 24 Hours (Table) 12/27/23 12/27/23 12/28/23 Range/Units 05:27 05:27 07:11 WBC 10.7 H 11.35 H (3.8-10.6) k/uL RBC 2.77 L 3.10 L (4.30-5.90) m/uL Hgb 7.5 L 7.9 L (13.0-17.5) gm/dL Hct 25.1 L 27.3 L (39.0-53.0) % MCH 25.5 L (27.0-32.0) pg MCHC 29.9 L 28.9 L (31.0-37.0) g/dL RDW 15.9 H 16.8 H (11.5-15.5) % Immature Gran # 0.09 H (0.00-0.04) X 10*3/uL Neutrophils # 7.9 H (1.3-7.7) k/uL Lymphocytes # 0.8 L (1.0-4.8) k/uL Eosinophils # 1.1 H 1.90 H (0-0.7) k/uL Sodium 136 L (137-145) mmol/L BUN 29 H (9-20) mg/dL Creatinine 2.99 H (0.66-1.25) mg/dL Calcium 7.5 L (8.4-10.2) mg/dL Microbiology - Last 24 Hours (Table) 12/24/23 16:08 Blood Culture - Preliminary Blood 12/24/23 16:08 Blood Culture - Preliminary Blood 12/24/23 16:08 Gram Stain - Final Leg - Left Wound Culture - Final Klebsiella pneumoniae Achromobacter xylos/denitrif Enterococcus faecium VRE Assessment and Plan Assessment: 1. Gangrene left foot with recent left below the knee amputation 2. Nonhealing left lower extremity wound, previous bypass wound dehiscence 3. Wound cultures positive for Klebsiella pneumoniae, Enterococcus faecium VRE, Achromobacter xylos/denitrif 4. Peripheral arterial disease with critical limb ischemia left lower extremity status post left common femoral endarterectomy and femoral to below-knee popliteal bypass 5. Chronic anemia Plan: 1. Wet-to-dry dressing change with Dakin solution daily, wrap with kerlix. 2. Wound cultures collected 3. Antibiotics per recommendations from infectious disease 4. Continue with dressing changes as ordered, need to allow for incision to dry. Discussed with patient again there is still high probability patient may require [id number] amputation. Will continue with supportive care at this time. 5. Rest of medical management per primary medical team 6. Further recommendations based on clinical course Thank you for this consultation, we will continue to follow. The impression and plan of care has been dictated as directed. Dr. Stearns I performed a history and examination of this patient, discussed the same with the dictator. I agree with the dictator's note ,documented as a scribe. Any additional findings or plans will be noted.
--- NOTE | 2023-12-28 13:28 | P.PN ---
Subjective Progress Note Date: 12/28/23 patient is a 58-year-old gentleman with past medical history significant for peripheral disease, COPD who recently underwent BKA secondary to gangrene of left lower extremity who presented to the ER because of left BKA site not healing well. Stated that he has been noticing that the wound is not healing well, noticed discharge which looked like pus coming from the wound. There was no complaint of fever or chills. Patient is complaining of increasing pain at the stump site. There is no complaint of nausea vomiting. Denies any abdominal pain. Because of the symptoms, patient came to the ER Initial lab work done in the ER showed WBC 11.9, hemoglobin 8.7, platelet count 411, sodium 137, potassium 4.2, BUN 33, creatinine 2.87, lactate 1.2, alk phos 147 EKG done in the ER showed heart rate of 54 , no ST segment elevation or depression seen, no T-wave inversions seen. X-ray of left knee done showed status BKA, distal cortical irregularity at fibular amputation site, concerning for osteo Patient admitted to internal medicine service 12/25. Patient seen examined. Sitting upright in the bed. No acute issues overnight 12/26. Patient seen and examined. Antibiotics changed to daptomycin and meropenem. States he feels better. Denies any fever or chills. Denies any worsening pain in his left stump 12/27. Patient seen and examined. Left BKA stump site has purulent drainage, vascular surgery has evaluated patient, planning surgical intervention on Sunday if there is no clinical improvement REVIEW OF SYSTEMS: CONSTITUTIONAL: No fever, no malaise,. CARDIOVASCULAR: No chest pain, no palpitations, no syncope. PULMONARY: No shortness of breath, no cough, GASTROINTESTINAL: No diarrhea, no nausea, no vomiting, no abdominal pain. NEUROLOGICAL: No headaches, no weakness, PHYSICAL EXAMINATION: GENERAL: The patient is alert and oriented x3, not in any acute distress. Well developed, well nourished. HEENT: Pupils are round and equally reacting to light. EOMI. No scleral icterus. No conjunctival pallor. Normocephalic, atraumatic. No pharyngeal erythema. No thyromegaly. CARDIOVASCULAR: S1 and S2 present. No murmurs, rubs, or gallops. PULMONARY: Chest is clear to auscultation, no wheezing or crackles. ABDOMEN: Soft, nontender, nondistended, normoactive bowel sounds. No palpable organomegaly. MUSCULOSKELETAL: Left BKA seen EXTREMITIES: No cyanosis, clubbing, or pedal edema. NEUROLOGICAL: Gross neurological examination did not reveal any focal deficits. SKIN: No rashes. Assessment and plan Surgical site infection of left BKA Recent gangrene of left lower extremity leading to BKA History of peripheral vascular disease with chronic critical left lower extrem ity ischemia s/p left common femoral and endarterectomy and left femoral- popliteal bypass Left sided renal mass CKD stage IV COPD Nicotine dependence Anxiety and depression Monitor vital signs Monitor CBC Monitor CMP Continue telemetry monitoring Follow-up on blood culture Follow-up on wound cultures Continue wound care Continue daptomycin and meropenem Vascular surgery following, planning surgical intervention on Sunday patient wound does not improve ID following Labs and medication were reviewed.. Continue same treatment. Continue with symptomatic treatment. Resume home medication. Monitor labs and vitals. DVT and GI prophylaxis. Further recommendations as per clinical course of the patient Dictation was produced using [employer] dictation software. please excuse any grammatical, word or spelling errors. Objective - Vital Signs Vital signs: Vital Signs Temp 98.5 F 12/28/23 07:53 Pulse 69 12/28/23 07:53 Resp 19 12/28/23 07:53 BP 124/62 12/28/23 07:53 Pulse Ox 95 12/28/23 07:53 FiO2 Intake & Output 12/27/23 12/28/23 12/28/23 18:59 06:59 18:59 Intake Total 1320 590 240 Output Total 600 300 Balance 720 290 240 Intake: Oral 1320 590 240 Output: Urine 600 300 Other: Voiding Method Urinal Urinal Urinal # Voids 1 0 - Labs CBC & Chem 7: 12/28/23 07:11 12/27/23 05:27 Labs: Abnormal Lab Results - Last 24 Hours (Table) 12/28/23 Range/Units 07:11 WBC 11.35 H (4.50-10.00) X 10*3/uL RBC 3.10 L (4.40-5.60) X 10*6/uL Hgb 7.9 L (13.0-17.0) g/dL Hct 27.3 L (39.6-50.0) % MCH 25.5 L (27.0-32.0) pg MCHC 28.9 L (32.0-37.0) g/dL RDW 16.8 H (11.5-14.5) % Immature Gran # 0.09 H (0.00-0.04) X 10*3/uL Eosinophils # 1.90 H (0.04-0.35) X 10*3/uL Microbiology - Last 24 Hours (Table) 12/24/23 16:08 Blood Culture - Preliminary Blood 12/24/23 16:08 Blood Culture - Preliminary Blood 12/24/23 16:08 Gram Stain - Final Leg - Left Wound Culture - Final Klebsiella pneumoniae Achromobacter xylos/denitrif Enterococcus faecium VRE
--- NOTE | 2023-12-28 14:20 | XR ---
EXAMINATION TYPE: XR chest 1V DATE OF EXAM: 12/28/2023 HISTORY: Shortness of breath. COMPARISON: None. TECHNIQUE: Single view of the chest is submitted. FINDINGS: Left-sided PICC line with distal tip overlying the SVC. No evidence of pneumothorax. Demonstrated are scattered senescent parenchymal change. Pulmonary venous congestion without overt f ailure. There is no evidence for focal infiltrate. The heart is stable. Hilar and mediastinal structures are within normal limits. Degenerative changes are seen of the dorsal spine. IMPRESSION: 1. Left-sided PICC line with distal tip overlying the SVC. No evidence of pneumothorax. Pulmonary venous congestion without overt failure.
[2023-12-29] MEDS: ACETAMINOPHEN TAB 325 MG TAB PO PRN (00:05)
[2023-12-29 12:09] VITALS: BMI 27.5
--- NOTE | 2023-12-29 12:58 | P.PN ---
Subjective Progress Note Date: 12/29/23 patient is a 58-year-old gentleman with past medical history significant for peripheral disease, COPD who recently underwent BKA secondary to gangrene of left lower extremity who presented to the ER because of left BKA site not healing well. Stated that he has been noticing that the wound is not healing well, noticed discharge which looked like pus coming from the wound. There was no complaint of fever or chills. Patient is complaining of increasing pain at the stump site. There is no complaint of nausea vomiting. Denies any abdominal pain. Because of the symptoms, patient came to the ER Initial lab work done in the ER showed WBC 11.9, hemoglobin 8.7, platelet count 411, sodium 137, potassium 4.2, BUN 33, creatinine 2.87, lactate 1.2, alk phos 147 EKG done in the ER showed heart rate of 54 , no ST segment elevation or depression seen, no T-wave inversions seen. X-ray of left knee done showed status BKA, distal cortical irregularity at fibular amputation site, concerning for osteo Patient admitted to internal medicine service 12/25. Patient seen examined. Sitting upright in the bed. No acute issues overnight 12/26. Patient seen and examined. Antibiotics changed to daptomycin and meropenem. States he feels better. Denies any fever or chills. Denies any worsening pain in his left stump 12/27. Patient seen and examined. Left BKA stump site has purulent drainage, vascular surgery has evaluated patient, planning surgical intervention on Sunday if there is no clinical improvement . Patient seen and examined. States he feels that his left BKA wound has improved, stated there is less drainage. REVIEW OF SYSTEMS: CONSTITUTIONAL: No fever, no malaise,. CARDIOVASCULAR: No chest pain, no palpitations, no syncope. PULMONARY: No shortness of breath, no cough, GASTROINTESTINAL: No diarrhea, no nausea, no vomiting, no abdominal pain. NEUROLOGICAL: No headaches, no weakness, PHYSICAL EXAMINATION: GENERAL: The patient is alert and oriented x3, not in any acute distress. Well developed, well nourished. HEENT: Pupils are round and equally reacting to light. EOMI. No scleral icterus. No conjunctival pallor. Normocephalic, atraumatic. No pharyngeal erythema. No thyromegaly. CARDIOVASCULAR: S1 and S2 present. No murmurs, rubs, or gallops. PULMONARY: Chest is clear to auscultation, no wheezing or crackles. ABDOMEN: Soft, nontender, nondistended, normoactive bowel sounds. No palpable organomegaly. MUSCULOSKELETAL: Left BKA seen EXTREMITIES: No cyanosis, clubbing, or pedal edema. NEUROLOGICAL: Gross neurological examination did not reveal any focal deficits. SKIN: No rashes. Assessment and plan Surgical site infection of left BKA Recent gangrene of left lower extremity leading to BKA History of peripheral vascular disease with chronic critical left lower extremity ischemia s/p left common femoral and endarterectomy and left femoral-popliteal bypass Left sided renal mass CKD stage IV COPD Nicotine dependence Anxiety and depression Monitor vital signs Monitor CBC Monitor CMP Follow-up on blood culture Follow-up on wound cultures Continue aspirin, Toprol-XL continue Xarelto Continue wound care Continue daptomycin and meropenem Vascular surgery following, planning surgical intervention on Sunday if patient wound does not improve ID following Labs and medication were reviewed.. Continue same treatment. Continue with symptomatic treatment. Resume home medication. Monitor labs and vitals. DVT and GI prophylaxis. Further recommendations as per clinical course of the patient Dictation was produced using [employer] dictation software. please excuse any grammatical, word or spelling errors. Objective - Vital Signs Vital signs: Vital Signs Temp 98.3 F 12/29/23 07:17 Pulse 61 12/29/23 08:45 Resp 14 12/29/23 08:45 BP 123/69 12/29/23 07:17 Pulse Ox 98 12/29/23 07:17 FiO2 Intake & Output 12/28/23 12/29/23 12/29/23 18:59 06:59 18:59 Intake Total 1020 Output Total 7187 142 0758 Balance -180 -800 -1400 Weight 99.79 kg Intake: Oral 1020 Output: Urine 8445 305 0923 Other: Voiding Method Urinal Urinal Urinal - Labs CBC & Chem 7: 12/28/23 07:11 12/27/23 05:27
--- NOTE | 2023-12-29 15:36 | P.PN ---
Subjective Progress Note Date: 12/28/23 Principal diagnosis: Reason for follow-up is left BKA stump wound infection Patient is a 58-year-old male with a past medical history significant for COPD DVT right lower extremity in this patient dealing with the left foot gangrene cellulitis failing medical therapy and the patient is recently status post left below the knee amputation patient presented back to the hospital with left BKA surgical wound dehiscence and infection. On today's evaluation that is 12/28/2023,the patient denies any fever or any chills, patient is breathing comfortably on room air, the patient denies chest pain shortness of breath and no significant cough, patient denies abdominal kari n, no nausea vomiting or diarrhea. Patient denies any worsening pain to the left BKA stump. Patient white count is 11.35 no BMP was done today local culture growing ESBL Klebsiella Objective - Vital Signs Vital signs: Vital Signs Temp 98.6 F 12/28/23 13:29 Pulse 51 L 12/28/23 13:29 Resp 19 12/28/23 13:29 BP 108/60 12/28/23 13:29 Pulse Ox 99 12/28/23 13:29 FiO2 Intake & Output 12/27/23 12/28/23 12/28/23 18:59 06:59 18:59 Intake Total 1320 590 240 Output Total 600 300 Balance 720 290 240 Intake: Oral 1320 590 240 Output: Urine 600 300 Other: Voiding Method Urinal Urinal Urinal # Voids 1 0 - Exam GENERAL DESCRIPTION: Middle-aged male lying in bed in no distress RESPIRATORY SYSTEM: Unlabored breathing , decreased breath sounds at bases HEART: S1 S2 regular rate and rhythm , ABDOMEN: Soft , no tenderness EXTREMITIES: Left BKA stump wound with slough tissue some surrounding swelling - Labs CBC & Chem 7: 12/28/23 07:11 12/27/23 05:27 Labs: Abnormal Lab Results - Last 24 Hours (Table) 12/28/23 Range/Units 07:11 WBC 11.35 H (4.50-10.00) X 10*3/uL RBC 3.10 L (4.40-5.60) X 10*6/uL Hgb 7.9 L (13.0-17.0) g/dL Hct 27.3 L (39.6-50.0) % MCH 25.5 L (27.0-32.0) pg MCHC 28.9 L (32.0-37.0) g/dL RDW 16.8 H (11.5-14.5) % Immature Gran # 0.09 H (0.00-0.04) X 10*3/uL Eosinophils # 1.90 H (0.04-0.35) X 10*3/uL Microbiology - Last 24 Hours (Table) 12/24/23 16:08 Blood Culture - Preliminary Blood 12/24/23 16:08 Blood Culture - Preliminary Blood 12/24/23 16:08 Gram Stain - Final Leg - Left Wound Culture - Final Klebsiella pneumoniae Achromobacter xylos/denitrif Enterococcus faecium VRE Assessment and Plan (1) Infection due to ESBL-producing Klebsiella pneumoniae Current Visit: Yes Status: Acute Code(s): A49.8 - OTHER BACTERIAL INFECTIONS OF UNSPECIFIED SITE; Z16.12 - EXTENDED SPECTRUM BETA LACTAMASE (ESBL) RESISTANCE SNOMED Code(s): 480335953 (2) Deep incisional surgical site infection Current Visit: Yes Status: Acute Code(s): T81.42XA - INFCT FOL A PROCEDURE, DEEP INCISIONAL SURGICAL SITE, INIT SNOMED Code(s): 865446682 (3) Cellulitis of left leg Current Visit: No Status: Acute Code(s): L03.116 - CELLULITIS OF LEFT LOWER LIMB SNOMED Code(s): 55129643163481852 Plan: 1patient presented to hospital with left BKA stump incision dehiscence cellulitis will need to cover for the resistant gram-positive as well as gram- negative keeping in mind recent multiple admission to the hospital 2-patient with renal sufficiency high risk of nephrotoxicity from vancomycin 3-patient local culture currently growing ESBL Klebsiella we will continue the patient on meropenem and monitor clinical course closely Dictation was produced using [employer] dictation software. please excuse any grammatical, word or spelling errors. Time with Patient: Less than 30
--- NOTE | 2023-12-29 15:37 | P.PN ---
Subjective Progress Note Date: 12/29/23 Principal diagnosis: Reason for follow-up is left BKA stump wound infection Patient is a 58-year-old male with a past medical history significant for COPD DVT right lower extremity in this patient dealing with the left foot gangrene cellulitis failing medical therapy and the patient is recently status post left below the knee amputation patient presented back to the hospital with left BKA surgical wound dehiscence and infection. On today's evaluation that is 12/29/2023,the patient remains to be afebrile, patient is on room air not requiring supplemental oxygen and denies any shortness of breath no chest pain or cough.Patient denies having any nausea or vomiting, no abdominal pain and no diarrhea has been reported patient pain to the left BKA stump is currently controlled. Local culture has been finalized with VRE Achromobacter and ESBL Klebsiella no CBC or BMP was done today Objective - Vital Signs Vital signs: Vital Signs Temp 97.7 F 12/29/23 12:37 Pulse 60 12/29/23 12:37 Resp 16 12/29/23 12:37 BP 106/48 12/29/23 12:37 Pulse Ox 98 12/29/23 12:37 FiO2 Intake & Output 12/28/23 12/29/23 12/29/23 18:59 06:59 18:59 Intake Total 1020 360 Output Total 4133 454 0663 Balance -180 -800 -1640 Weight 99.79 kg Intake: Oral 1020 360 Output: Urine 5550 390 7052 Other: Voiding Method Urinal Urinal Urinal - Exam GENERAL DESCRIPTION: Middle-aged male lying in bed in no distress RESPIRATORY SYSTEM: Unlabored breathing , decreased breath sounds at bases HEART: S1 S2 regular rate and rhythm , ABDOMEN: Soft , no tenderness EXTREMITIES: Left BKA stump wound with full dehiscence significant amount of slough tissue - Labs CBC & Chem 7: 12/28/23 07:11 12/27/23 05:27 Assessment and Plan (1) Infection due to ESBL-producing Klebsiella pneumoniae Current Visit: Yes Status: Acute Code(s): A49.8 - OTHER BACTERIAL INFECTIONS OF UNSPECIFIED SITE; Z16.12 - EXTENDED SPECTRUM BETA LACTAMASE (ESBL) RESISTANCE SNOMED Code(s): 341940114 (2) Deep incisional surgical site infection Current Visit: Yes Status: Acute Code(s): T81.42XA - INFCT FOL A PROCEDURE, DEEP INCISIONAL SURGICAL SITE, INIT SNOMED Code(s): 159842066 (3) Cellulitis of left leg Current Visit: No Status: Acute Code(s): L03.116 - CELLULITIS OF LEFT LOWER LIMB SNOMED Code(s): 20818167002321499 Plan: 1patient presented to hospital with left BKA stump incision dehiscence cellulitis will need to cover for the resistant gram-positive as well as gram- negative keeping in mind recent multiple admission to the hospital 2-patient with renal sufficiency high risk of nephrotoxicity from vancomycin 3-patient local culture currently growing ESBL Klebsiella as well as VRE and Achromobacter, patient is currently covered with the daptomycin meropenem to continue may need further surgical debridement versus AKA vascular surgery on the case, questions were answered Dictation was produced using [employer] dictation software. please excuse any grammatical, word or spelling errors. Time with Patient: Less than 30
--- NOTE | 2023-12-30 01:11 | P.PN ---
Progress Note - Text Progress Note Date: 12/29/23 Subjective Recent left BKA Patient seen and examined today as a follow-up. States some discomfort at amputation site. Concerned with the way it looks. Denies any fevers or chills. Objective General appearance: The patient is alert, oriented, appears in no acute distress. HET: Head is normocephalic and atraumatic. Neck: Supple. Abdomen: Soft, nontender, nondistended. Extremities: Left below the knee amputation surgical incision approximated with sutures, wound proximal to incision medial aspect of lower extremity from previous bypass. Incision approximated with sutures with surrounding erythema areas of nonviable tissue and multiple lower extremity wounds. Neurological and: No focal deficits. Alert and oriented. Assessment: 1. Gangrene left foot with recent left below the knee amputation 2. Nonhealing left lower extremity wound, previous bypass wound dehiscence 3. Wound cultures positive for Klebsiella pneumoniae, Enterococcus faecium VRE, Achromobacter xylos/denitrif 4. Peripheral arterial disease with critical limb ischemia left lower extremity status post left common femoral endarterectomy and femoral to below-knee popliteal bypass 5. Chronic anemia Plan: 1. Wet-to-dry dressing changes with Dakin solution daily, wrap with kerlix. 2. Antibiotics per recommendations from infectious disease 3. Continue with dressing changes as ordered, need to allow for incision to dry. Discussed with patient again there is still high probability patient may require [id number] amputation. Will continue with supportive care at this time. 4. Rest of medical management per primary medical team
[2023-12-30 09:26] LABS: ALT 15 U/L (10-49); AST 23 U/L (14-35); Albumin 2.2 g/dL (3.8-4.9); Albumin/Globulin Ratio 0.81 Ratio (1.60-3.17); Alkaline Phosphatase 109 U/L (41-126); BUN/Creat Ratio 9.19 Ratio (12.00-20.00); Blood Urea Nitrogen 28.5 mg/dL (9.0-27.0); Calcium 7.9 mg/dL (8.7-10.3); Carbon Dioxide 24.7 mmol/L (21.6-31.8); Chloride 104 mmol/L (96-109); Globulin 2.7 g/dL (1.6-3.3); Glucose 83 mg/dL (70-110); Potassium 4.6 mmol/L (3.5-5.5); Sodium 137 mmol/L (135-145); Total Bilirubin <0.2 mg/dL (0.3-1.2); Total Protein 4.9 g/dL (6.2-8.2)
[2023-12-30 10:27] LABS: HCT 23.2 % (39.6-50.0); HGB 6.9 g/dL (13.0-17.0); MCH 25.7 pg (27.0-32.0); MCHC 29.7 g/dL (32.0-37.0); MCV 86.2 FL (80.0-97.0); Mean Platelet Volume 9.3 FL (9.5-12.2); NRBC Per 100 WBC 0 X 10*3/uL (0.00-0.01); Platelet Count 329 X 10*3/uL (140-440); RBC 2.69 X 10*6/uL (4.40-5.60); RDW 16.9 % (11.5-14.5); WBC 9.82 X 10*3/uL (4.50-10.00)
[2023-12-30 10:56] LABS: Basophils # (M) 0 X 10*3/uL (0.00-0.10); Eosinophils # (M) 1.96 X 10*3/uL (0.04-0.35); Lymphocytes # (M) 1.47 X 10*3/uL (0.90-5.00); Monocytes # (M) 0.59 X 10*3/uL (0.20-1.00); Neutrophils # (M) 5.79 X 10*3/uL (1.80-7.70); Neutrophils % (M) 59 %
--- NOTE | 2023-12-30 12:58 | P.PN ---
Subjective Progress Note Date: 12/30/23 patient is a 58-year-old gentleman with past medical history significant for peripheral disease, COPD who recently underwent BKA secondary to gangrene of left lower extremity who presented to the ER because of left BKA site not healing well. Stated that he has been noticing that the wound is not healing well, noticed discharge which looked like pus coming from the wound. There was no complaint of fever or chills. Patient is complaining of increasing pain at the stump site. There is no complaint of nausea vomiting. Denies any abdominal pain. Because of the symptoms, patient came to the ER Initial lab work done in the ER showed WBC 11.9, hemoglobin 8.7, platelet count 411, sodium 137, potassium 4.2, BUN 33, creatinine 2.87, lactate 1.2, alk phos 147 EKG done in the ER showed heart rate of 54 , no ST segment elevation or depression seen, no T-wave inversions seen. X-ray of left knee done showed status BKA, distal cortical irregularity at fibular amputation site, concerning for osteo Patient admitted to internal medicine service 12/25. Patient seen examined. Sitting upright in the bed. No acute issues overnight 12/26. Patient seen and examined. Antibiotics changed to daptomycin and meropenem. States he feels better. Denies any fever or chills. Denies any worsening pain in his left stump 12/27. Patient seen and examined. Left BKA stump site has purulent drainage, vascular surgery has evaluated patient, planning surgical intervention on Sunday if there is no clinical improvement /. Patient seen and examined. States he feels that his left BKA wound has improved, stated there is less drainage. 12/29. Patient seen and examined. Hemoglobin this morning 6.9, will order 1 unit of packed red blood cell REVIEW OF SYSTEMS: CONSTITUTIONAL: No fever, no malaise,. CARDIOVASCULAR: No chest pain, no palpitations, no syncope. PULMONARY: No shortness of breath, no cough, GASTROINTESTINAL: No diarrhea, no nausea, no vomiting, no abdominal pain. NEUROLOGICAL: No headaches, no weakness, PHYSICAL EXAMINATION: GENERAL: The patient is alert and oriented x3, not in any acute distress. Well developed, well nourished. HEENT: Pupils are round and equally reacting to light. EOMI. No scleral icterus. No conjunctival pallor. Normocephalic, atraumatic. No pharyngeal erythema. No thyromegaly. CARDIOVASCULAR: S1 and S2 present. No murmurs, rubs, or gallops. PULMONARY: Chest is clear to auscultation, no wheezing or crackles. ABDOMEN: Soft, nontender, nondistended, normoactive bowel sounds. No palpable organomegaly. MUSCULOSKELETAL: Left BKA seen, purulent discharge seen. EXTREMITIES: No cyanosis, clubbing, or pedal edema. NEUROLOGICAL: Gross neurological examination did not reveal any focal deficits. SKIN: No rashes. Assessment and plan Surgical site infection of left BKA Recent gangrene of left lower extremity leading to BKA History of peripheral vascular disease with chronic critical left lower extremity ischemia s/p left common femoral and endarterectomy and left femoral- popliteal bypass Left sided renal mass CKD stage IV COPD Nicotine dependence Anxiety and depression Monitor vital signs Monitor CBC, hemoglobin 6.9, will order 1 unit of packed red blood cell Monitor CMP Follow-up on blood culture Follow-up on wound cultures Continue aspirin, Toprol-XL continue Xarelto Continue wound care Continue daptomycin and meropenem Vascular surgery following, planning surgical intervention on Sunday if patient wound does not improve ID following Labs and medication were reviewed.. Continue same treatment. Continue with symptomatic treatment. Resume home medication. Monitor labs and vitals. DVT and GI prophylaxis. Further recommendations as per clinical course of the patient Dictation was produced using [employer] dictation software. please excuse any grammatical, word or spelling errors. Objective - Vital Signs Vital signs: Vital Signs Temp 98.5 F 12/30/23 07:10 Pulse 73 12/30/23 07:10 Resp 18 12/30/23 10:15 BP 132/63 12/30/23 07:10 Pulse Ox 94 L 12/30/23 07:10 FiO2 Intake & Output 12/29/23 12/30/23 12/30/23 18:59 06:59 18:59 Intake Total 360 250 Output Total 1999 1025 600 Balance -9477 -1584 -151 Weight 99.79 kg Intake: Oral 360 250 Output: Urine 1999 1025 600 Other: Voiding Method Urinal Urinal Urinal # Voids 0 - Labs CBC & Chem 7: 12/30/23 03:43 12/30/23 03:43 Labs: Abnormal Lab Results - Last 24 Hours (Table) 12/30/23 12/30/23 Range/Units 03:43 03:43 RBC 2.69 L (4.40-5.60) X 10*6/uL Hgb 6.9 A* (13.0-17.0) g/dL Hct 23.2 L (39.6-50.0) % MCH 25.7 L (27.0-32.0) pg MCHC 29.7 L (32.0-37.0) g/dL RDW 16.9 H (11.5-14.5) % MPV 9.3 L (9.5-12.2) FL Eosinophils # (Manual) 1.96 H (0.04-0.35) X 10*3/uL BUN 28.5 H (9.0-27.0) mg/dL Creatinine 3.1 H (0.6-1.5) mg/dL Est GFR (CKD-EPI) 22 L (>=60) BUN/Creatinine Ratio 9.19 L (12.00-20.00) Ratio Calcium 7.9 L (8.7-10.3) mg/dL Total Bilirubin <0.2 L (0.3-1.2) mg/dL Total Protein 4.9 L (6.2-8.2) g/dL Albumin 2.2 L (3.8-4.9) g/dL Albumin/Globulin Ratio 0.81 L (1.60-3.17) Ratio Microbiology - Last 24 Hours (Table) 12/24/23 16:08 Blood Culture - Final Blood 12/24/23 16:08 Blood Culture - Final Blood
[2023-12-30] MEDS: CALAMINE/ZINC OXIDE LOTION 177 ML BTL TOPICAL PRN (16:13)
--- NOTE | 2023-12-30 22:47 | P.PN ---
Subjective Progress Note Date: 12/30/23 Principal diagnosis: Reason for follow-up is left BKA stump wound infection Patient is a 58-year-old male with a past medical history significant for COPD DVT right lower extremity in this patient dealing with the left foot gangrene cellulitis failing medical therapy and the patient is recently status post left below the knee amputation patient presented back to the hospital with left BKA surgical wound dehiscence and infection. On today's evaluation that is 12/30/2023, the patient continues to be afebrile, the patient is on room air and breathing comfortably, the Pt denies having any chest pain or cough, the patient denies having any abdominal pain no vomiting or any diarrhea, patient pain to the left BKA stump wound is currently controlled has been complaining of some itching to the right lower extremity. The patient white count normalized to 9.82, creatinine is 3.1 local culture with the VRE ESBL Klebsiella Objective - Vital Signs Vital signs: Vital Signs Temp 98.5 F 12/30/23 07:10 Pulse 73 12/30/23 07:10 Resp 18 12/30/23 10:15 BP 132/63 12/30/23 07:10 Pulse Ox 94 L 12/30/23 07:10 FiO2 Intake & Output 12/29/23 12/30/23 12/30/23 18:59 06:59 18:59 Intake Total 360 250 Output Total 1999 1025 600 Balance -1640 -1025 -350 Weight 99.79 kg Intake: Oral 360 250 Output: Urine 1999 1025 600 Other: Voiding Method Urinal Urinal Urinal # Voids 0 - Exam GENERAL DESCRIPTION: Middle-aged male lying in bed in no distress RESPIRATORY SYSTEM: Unlabored breathing , decreased breath sounds at bases HEART: S1 S2 regular rate and rhythm , ABDOMEN: Soft , no tenderness EXTREMITIES: Left BKA stump wound currently dressed - Labs CBC & Chem 7: 12/30/23 03:43 12/30/23 03:43 Labs: Abnormal Lab Results - Last 24 Hours (Table) 12/30/23 12/30/23 Range/Units 03:43 03:43 RBC 2.69 L (4.40-5.60) X 10*6/uL Hgb 6.9 A* (13.0-17.0) g/dL Hct 23.2 L (39.6-50.0) % MCH 25.7 L (27.0-32.0) pg MCHC 29.7 L (32.0-37.0) g/dL RDW 16.9 H (11.5-14.5) % MPV 9.3 L (9.5-12.2) FL Eosinophils # (Manual) 1.96 H (0.04-0.35) X 10*3/uL BUN 28.5 H (9.0-27.0) mg/dL Creatinine 3.1 H (0.6-1.5) mg/dL Est GFR (CKD-EPI) 22 L (>=60) BUN/Creatinine Ratio 9.19 L (12.00-20.00) Ratio Calcium 7.9 L (8.7-10.3) mg/dL Total Bilirubin <0.2 L (0.3-1.2) mg/dL Total Protein 4.9 L (6.2-8.2) g/dL Albumin 2.2 L (3.8-4.9) g/dL Albumin/Globulin Ratio 0.81 L (1.60-3.17) Ratio Microbiology - Last 24 Hours (Table) 12/24/23 16:08 Blood Culture - Final Blood 12/24/23 16:08 Blood Culture - Final Blood Assessment and Plan (1) Infection due to ESBL-producing Klebsiella pneumoniae Current Visit: Yes Status: Acute Code(s): A49.8 - OTHER BACTERIAL INFECTIONS OF UNSPECIFIED SITE; Z16.12 - EXTENDED SPECTRUM BETA LACTAMASE (ESBL) RESISTANCE SNOMED Code(s): 203016163 (2) Deep incisional surgical site infection Current Visit: Yes Status: Acute Code(s): T81.42XA - INFCT FOL A PROCEDURE, DEEP INCISIONAL SURGICAL SITE, INIT SNOMED Code(s): 627179354 (3) Cellulitis of left leg Current Visit: No Status: Acute Code(s): L03.116 - CELLULITIS OF LEFT LOWER LIMB SNOMED Code(s): 95878651286189405 Plan: 1patient presented to hospital with left BKA stump incision dehiscence cellulitis will need to cover for the resistant gram-positive as well as gram- negative keeping in mind recent multiple admission to the hospital 2-patient with renal sufficiency high risk of nephrotoxicity from vancomycin 3-patient local culture currently growing ESBL Klebsiella as well as VRE and Achromobacter 4-patient to continue with the daptomycin meropenem await further surgical recommendation per vascular surgery Dictation was produced using [employer] dictation software. please excuse any grammatical, word or spelling errors. Time with Patient: Less than 30
--- NOTE | 2023-12-31 14:06 | P.PN ---
Subjective Progress Note Date: 12/31/23 Principal diagnosis: Recent left BKA Patient seen and examined today as a follow-up. He states overall he is doing well. No acute changes through the night. Yesterday patient had a drop in his hemoglobin again to 6.9 he was given 1 unit of blood. States that he is still feeling tired and weak. Repeat labs today iron currently pending. He has been afebrile. Objective - Vital Signs Vital signs: Vital Signs Temp 98.0 F 12/31/23 08:00 Pulse 63 12/31/23 08:00 Resp 16 12/31/23 08:00 BP 133/54 12/31/23 08:00 Pulse Ox 97 12/31/23 08:00 FiO2 Intake & Output 12/30/23 12/31/23 12/31/23 18:59 06:59 18:59 Intake Total 738 200 Output Total 1700 200 Balance -962 0 Intake: Intake, IV Titration 200 Amount Meropenem 1 gm In Sodium 200 Chloride 0.9% 100 ml @ 33 .3 mls/hr IVPB Q8H [facility] Rx #:[id number] Oral 450 Blood Product 288 Rc Pheresis 2 As3 Unit 288 [id number] Output: Urine 1700 200 Other: Voiding Method Urinal Urinal # Voids 0 3 # Bowel Movements 0 - Exam General appearance: The patient is alert, oriented, appears in no acute distress. HET: Head is normocephalic and atraumatic. Neck: Supple. Abdomen: Soft, nontender, nondistended. Extremities: Left below the knee amputation surgical incision completely sep arated and flap is open. Soft tissue, nonviable tissue noted. Neurological and: No focal deficits. Alert and oriented. - Labs CBC & Chem 7: 12/30/23 03:43 12/30/23 03:43 Labs: Abnormal Lab Results - Last 24 Hours (Table) 12/30/23 12/30/23 Range/Units 03:43 11:11 RBC 2.69 L (4.40-5.60) X 10*6/uL Hgb 6.9 A* (13.0-17.0) g/dL Hct 23.2 L (39.6-50.0) % MCH 25.7 L (27.0-32.0) pg MCHC 29.7 L (32.0-37.0) g/dL RDW 16.9 H (11.5-14.5) % MPV 9.3 L (9.5-12.2) FL Eosinophils # (Manual) 1.96 H (0.04-0.35) X 10*3/uL Crossmatch See Detail Assessment and Plan Assessment: 1. Gangrene left foot with recent left below the knee amputation 2. Nonhealing left lower extremity wound, previous bypass wound dehiscence 3. Wound cultures positive for Klebsiella pneumoniae, Enterococcus faecium VRE, Achromobacter xylos/denitrif 4. Peripheral arterial disease with critical limb ischemia left lower extremity status post left common femoral endarterectomy and femoral to below-knee popliteal bypass 5. Chronic anemia Plan: 1. Wet-to-dry dressing change with Dakin solution daily, wrap with kerlix. 2. Antibiotics per recommendations from infectious disease 3. Hold anticoagulation 4. Daily CBC, BMP 5. Plan for left [id number] amputation Sunday 6. Rest of medical management per primary medical team Thank you for this consultation, we will continue to follow. The impression and plan of care has been dictated as directed. Dr. Payne I performed a history and examination of this patient, discussed the same with the dictator. I agree with the dictator's note ,documented as a scribe. Any additional findings or plans will be noted.
[2023-12-31 15:40] LABS: Anisocytosis Slight; HCT 28.7 % (39.0-53.0); HGB 8.6 gm/dL (13.0-17.5); Hypochromasia Marked; MCH 26.2 pg (25.0-35.0); MCHC 29.9 g/dL (31.0-37.0); MCV 87.6 fL (80.0-100.0); Mean Platelet Volume 7.4; Platelet Count 399 k/uL (150-450); RBC 3.28 m/uL (4.30-5.90); RDW 16.2 % (11.5-15.5)
[2023-12-31 15:58] LABS: African American GFR (CKD) 28 (>60 ml/min/1.73 sqM); Anion Gap 4 mmol/L; Blood Urea Nitrogen 29 mg/dL (9-20); Calcium 8.1 mg/dL (8.4-10.2); Carbon Dioxide 26 mmol/L (22-30); Chloride 105 mmol/L (98-107); Glucose 87 mg/dL (74-99); Non-African American GFR(CKD) 24 (>60 ml/min/1.73 sqM); Potassium 4.5 mmol/L (3.5-5.1); Sodium 135 mmol/L (137-145)
--- NOTE | 2023-12-31 21:16 | P.PN ---
Subjective patient is a 58-year-old gentleman with past medical history significant for peripheral disease, COPD who recently underwent BKA secondary to gangrene of left lower extremity who presented to the ER because of left BKA site not healing well. Stated that he has been noticing that the wound is not healing well, noticed discharge which looked like pus coming from the wound. There was no complaint of fever or chills. Patient is complaining of increasing pain at the stump site. There is no complaint of nausea vomiting. Denies any abdominal pain. Because of the symptoms, patient came to the ER Initial lab work done in the ER showed WBC 11.9, hemoglobin 8.7, platelet count 411, sodium 137, potassium 4.2, BUN 33, creatinine 2.87, lactate 1.2, alk phos 147 EKG done in the ER showed heart rate of 54 , no ST segment elevation or depression seen, no T-wave inversions seen. X-ray of left knee done showed status BKA, distal cortical irregularity at fibular amputation site, concerning for osteo Patient admitted to internal medicine service 12/25. Patient seen examined. Sitting upright in the bed. No acute issues overnight 12/26. Patient seen and examined. Antibiotics changed to daptomycin and meropenem. States he feels better. Denies any fever or chills. Denies any worsening pain in his left stump 12/27. Patient seen and examined. Left BKA stump site has purulent drainage, vascular surgery has evaluated patient, planning surgical intervention on Sunday if there is no clinical improvement /. Patient seen and examined. States he feels that his left BKA wound has improved, stated there is less drainage. 12/29. Patient seen and examined. Hemoglobin this morning 6.9, will order 1 unit of packed red blood cell 12/31/2023 Patient left BKA stump with dressing in place. Pain controlled Patient sitting at bed edge eating, looks comfortable, no specific complaint Plan for left AKA by vascular surgery team on Sunday Objective - Vital Signs Vital signs: Vital Signs Temp 98.0 F 12/31/23 08:00 Pulse 63 12/31/23 08:00 Resp 16 12/31/23 08:00 BP 133/54 12/31/23 08:00 Pulse Ox 97 12/31/23 08:00 FiO2 Intake & Output 12/30/23 12/31/23 12/31/23 18:59 06:59 18:59 Intake Total 738 200 Output Total 1700 200 Balance -962 0 Intake: Intake, IV Titration 200 Amount Meropenem 1 gm In Sodium 200 Chloride 0.9% 100 ml @ 33 .3 mls/hr IVPB Q8H [facility] Rx #:[id number] Oral 450 Blood Product 288 Rc Pheresis 2 As3 Unit 288 [id number] Output: Urine 1700 200 Other: Voiding Method Urinal Urinal Urinal # Voids 0 3 # Bowel Movements 0 - Exam GENERAL: The patient is alert and oriented x3, not in any acute distress. Well developed, well nourished. HEENT: Pupils are round and equally reacting to light. EOMI. No scleral icterus. No conjunctival pallor. Normocephalic, atraumatic. No pharyngeal erythema. No thyromegaly. CARDIOVASCULAR: S1 and S2 present. No murmurs, rubs, or gallops. PULMONARY: Chest is clear to auscultation, no wheezing or crackles. ABDOMEN: Soft, nontender, nondistended, normoactive bowel sounds. No palpable organomegaly. MUSCULOSKELETAL: Left BKA seen, purulent discharge seen. EXTREMITIES: No cyanosis, clubbing, or pedal edema. NEUROLOGICAL: Gross neurological examination did not reveal any focal deficits. SKIN: No rashes. - Labs CBC & Chem 7: 12/31/23 15:08 12/31/23 15:08 Labs: Abnormal Lab Results - Last 24 Hours (Table) 12/30/23 Range/Units 11:11 Crossmatch See Detail Assessment and Plan Assessment: Surgical site infection of left BKA Recent gangrene of left lower extremity leading to BKA History of peripheral vascular disease with chronic critical left lower extremity ischemia s/p left common femoral and endarterectomy and left femoral- popliteal bypass Left sided renal mass CKD stage IV COPD Nicotine dependence Anxiety and depression Plan: Monitor vital signs Monitor CBC, hemoglobin 6.9, will order 1 unit of packed red blood cell Monitor CMP Follow-up on blood culture Follow-up on wound cultures Continue aspirin, Toprol-XL continue Xarelto Continue wound care Continue daptomycin and meropenem Vascular surgery following, planning surgical intervention on Sunday if patient wound does not improve ID following Labs and medication were reviewed.. Continue same treatment. Continue with symptomatic treatment. Resume home medication. Monitor labs and vitals. DVT and GI prophylaxis. Further recommendations as per clinical course of the patient
--- NOTE | 2024-01-01 07:33 | P.PN ---
Subjective Progress Note Date: 12/31/23 Principal diagnosis: Reason for follow-up is left BKA stump wound infection Patient is a 58-year-old male with a past medical history significant for COPD DVT right lower extremity in this patient dealing with the left foot gangrene cellulitis failing medical therapy and the patient is recently status post left below the knee amputation patient presented back to the hospital with left BKA surgical wound dehiscence and infection. On today's evaluation that is 12/31/2023, Patient is afebrile patient is currently on room air and denies having any shortness of breath, the patient denies any chest pain or cough, the patient denies any nausea vomiting did not have any abdominal pain and no diarrhea, denies any worsening pain to the left BKA stump. Patient white count is 9.0 creatinine is 2.73 Objective - Vital Signs Vital signs: Vital Signs Temp 98.0 F 12/31/23 08:00 Pulse 63 12/31/23 08:00 Resp 16 12/31/23 08:00 BP 133/54 12/31/23 08:00 Pulse Ox 97 12/31/23 08:00 FiO2 Intake & Output 12/30/23 12/31/23 12/31/23 18:59 06:59 18:59 Intake Total 738 200 Output Total 1700 200 Balance -962 0 Intake: Intake, IV Titration 200 Amount Meropenem 1 gm In Sodium 200 Chloride 0.9% 100 ml @ 33 .3 mls/hr IVPB Q8H [facility] Rx #:[id number] Oral 450 Blood Product 288 Rc Pheresis 2 As3 Unit 288 [id number] Output: Urine 1700 200 Other: Voiding Method Urinal Urinal Urinal # Voids 0 3 # Bowel Movements 0 - Exam GENERAL DESCRIPTION: Middle-aged male lying in bed in no distress RESPIRATORY SYSTEM: Unlabored breathing , decreased breath sounds at bases HEART: S1 S2 regular rate and rhythm , ABDOMEN: Soft , no tenderness EXTREMITIES: Left BKA stump wound currently dressed - Labs CBC & Chem 7: 12/31/23 15:08 12/31/23 15:08 Labs: Abnormal Lab Results - Last 24 Hours (Table) 12/30/23 Range/Units 11:11 Crossmatch See Detail Assessment and Plan (1) Infection due to ESBL-producing Klebsiella pneumoniae Current Visit: Yes Status: Acute Code(s): A49.8 - OTHER BACTERIAL INFECTIONS OF UNSPECIFIED SITE; Z16.12 - EXTENDED SPECTRUM BETA LACTAMASE (ESBL) RESISTANCE SNOMED Code(s): 123121924 (2) Deep incisional surgical site infection Current Visit: Yes Status: Acute Code(s): T81.42XA - INFCT FOL A PROCEDURE, DEEP INCISIONAL SURGICAL SITE, INIT SNOMED Code(s): 529832135 (3) Cellulitis of left leg Current Visit: No Status: Acute Code(s): L03.116 - CELLULITIS OF LEFT LOWER LIMB SNOMED Code(s): 39230736191113661 Plan: 1patient presented to hospital with left BKA stump incision dehiscence cellulitis will need to cover for the resistant gram-positive as well as gram- negative keeping in mind recent multiple admission to the hospital 2-patient with renal sufficiency high risk of nephrotoxicity from vancomycin 3-patient local culture currently growing ESBL Klebsiella as well as VRE and Achromobacter 4-patient is afebrile, white count has normalized to continue with the daptomycin meropenem, possible left AKA Mother at the bedside questions were answered Dictation was produced using [employer] dictation software. please excuse any grammatical, word or spelling errors. Time with Patient: Less than 30
[2024-01-01 08:25] LABS: Basophils # (A) 0.06 X 10*3/uL (0.00-0.10); Basophils % (A) 0.7 %; Eosinophils % (A) 20.6 %; HCT 23.6 % (39.6-50.0); HGB 7.2 g/dL (13.0-17.0); Lymphocytes % (A) 15.7 %; MCH 25.9 pg (27.0-32.0); MCHC 30.5 g/dL (32.0-37.0); MCV 84.9 FL (80.0-97.0); Mean Platelet Volume 9.3 FL (9.5-12.2); Monocytes # (A) 0.76 X 10*3/uL (0.20-1.00); Monocytes % (A) 9.2 %; NRBC Per 100 WBC 0 X 10*3/uL (0.00-0.01); Neutrophils # (A) 4.39 X 10*3/uL (1.80-7.70); Neutrophils % (A) 53.1 %; Platelet Count 336 X 10*3/uL (140-440); RBC 2.78 X 10*6/uL (4.40-5.60); RDW 16.4 % (11.5-14.5); WBC 8.27 X 10*3/uL (4.50-10.00)
[2024-01-01 08:34] LABS: BUN/Creat Ratio 9.61 Ratio (12.00-20.00); Blood Urea Nitrogen 26.9 mg/dL (9.0-27.0); Calcium 7.6 mg/dL (8.7-10.3); Carbon Dioxide 26.9 mmol/L (21.6-31.8); Chloride 103 mmol/L (96-109); Glucose 78 mg/dL (70-110); Potassium 4.3 mmol/L (3.5-5.5); Sodium 136 mmol/L (135-145)
--- NOTE | 2024-01-01 10:03 | P.PN ---
Subjective Progress Note Date: 01/01/24 Principal diagnosis: Recent left BKA Patient is seen and examined today as a follow-up. He states he is having a little bit more pain today at his amputation site. He has been afebrile. Repeat hemoglobin today 7.2. No reported signs of bleeding. Objective - Vital Signs Vital signs: Vital Signs Temp 97.9 F 01/01/24 07:13 Pulse 60 01/01/24 07:13 Resp 17 01/01/24 07:13 BP 118/68 01/01/24 07:13 Pulse Ox 96 01/01/24 09:25 FiO2 21 01/01/24 09:25 Intake & Output 12/31/23 01/01/24 01/01/24 18:59 06:59 18:59 Output Total 350 Balance -350 Output: Urine 350 Other: Voiding Method Urinal Urinal # Voids 3 # Bowel Movements 1 - Exam General appearance: The patient is alert, oriented, appears in no acute distress. HET: Head is normocephalic and atraumatic. Neck: Supple. Abdomen: Soft, nontender, nondistended. Extremities: Left below the knee amputation dressing in place in knee immobilizer. Neurological and: No focal deficits. Alert and oriented. - Labs CBC & Chem 7: 01/01/24 04:41 01/01/24 04:41 Labs: Abnormal Lab Results - Last 24 Hours (Table) 12/31/23 12/31/23 01/01/24 Range/Units 15:08 15:08 04:41 RBC 3.28 L 2.78 L (4.30-5.90) m/uL Hgb 8.6 L 7.2 L (13.0-17.5) gm/dL Hct 28.7 L 23.6 L (39.0-53.0) % MCH 25.9 L (27.0-32.0) pg MCHC 29.9 L 30.5 L (31.0-37.0) g/dL RDW 16.2 H 16.4 H (11.5-15.5) % MPV 9.3 L (9.5-12.2) FL Immature Gran # 0.06 H (0.00-0.04) X 10*3/uL Eosinophils # 1.70 H (0.04-0.35) X 10*3/uL Sodium 135 L (137-145) mmol/L BUN 29 H (9-20) mg/dL Creatinine 2.73 H (0.66-1.25) mg/dL Est GFR (CKD-EPI) (>=60) BUN/Creatinine Ratio (12.00-20.00) Ratio Calcium 8.1 L (8.4-10.2) mg/dL 01/01/24 Range/Units 04:41 RBC (4.30-5.90) m/uL Hgb (13.0-17.5) gm/dL Hct (39.0-53.0) % MCH (27.0-32.0) pg MCHC (31.0-37.0) g/dL RDW (11.5-15.5) % MPV (9.5-12.2) FL Immature Gran # (0.00-0.04) X 10*3/uL Eosinophils # (0.04-0.35) X 10*3/uL Sodium (137-145) mmol/L BUN (9-20) mg/dL Creatinine 2.8 H (0.66-1.25) mg/dL Est GFR (CKD-EPI) 25 L (>=60) BUN/Creatinine Ratio 9.61 L (12.00-20.00) Ratio Calcium 7.6 L (8.4-10.2) mg/dL Assessment and Plan Assessment: 1. Gangrene left foot with recent left below the knee amputation for nonhealing 2. Nonhealing left lower extremity wound, previous bypass wound dehiscence 3. Wound cultures positive for Klebsiella pneumoniae, Enterococcus faecium VRE, Achromobacter xylos/denitrif 4. Peripheral arterial disease with critical limb ischemia left lower extremity status post left common femoral endarterectomy and femoral to below-knee p opliteal bypass 5. Chronic anemia Plan: 1. Wet-to-dry dressing change with Dakin solution daily, wrap with kerlix. 2. Antibiotics per recommendations from infectious disease 3. Hold anticoagulation 4. Daily CBC, BMP. Will transfuse for hemoglobin less than 8. 5. Plan for left [id number] amputation Sunday 6. Discussed with the primary medical team patient needs medical clearance for general anesthesia versus spinal 7. Rest of medical management per primary medical team Thank you for this consultation, we will continue to follow. The impression and plan of care has been dictated as directed. Dr. Stearns I performed a history and examination of this patient, discussed the same with the dictator. I agree with the dictator's note ,documented as a scribe. Any additional findings or plans will be noted.
--- NOTE | 2024-01-01 11:20 | P.PN ---
Subjective patient is a 58-year-old gentleman with past medical history significant for peripheral disease, COPD who recently underwent BKA secondary to gangrene of left lower extremity who presented to the ER because of left BKA site not healing well. Stated that he has been noticing that the wound is not healing well, noticed discharge which looked like pus coming from the wound. There was no complaint of fever or chills. Patient is complaining of increasing pain at the stump site. There is no complaint of nausea vomiting. Denies any abdominal pain. Because of the symptoms, patient came to the ER Initial lab work done in the ER showed WBC 11.9, hemoglobin 8.7, platelet count 411, sodium 137, potassium 4.2, BUN 33, creatinine 2.87, lactate 1.2, alk phos 147 EKG done in the ER showed heart rate of 54 , no ST segment elevation or depression seen, no T-wave inversions seen. X-ray of left knee done showed status BKA, distal cortical irregularity at fibular amputation site, concerning for osteo Patient admitted to internal medicine service 12/25. Patient seen examined. Sitting upright in the bed. No acute issues overnight 12/26. Patient seen and examined. Antibiotics changed to daptomycin and meropenem. States he feels better. Denies any fever or chills. Denies any worsening pain in his left stump 12/27. Patient seen and examined. Left BKA stump site has purulent drainage, vascular surgery has evaluated patient, planning surgical intervention on Sunday if there is no clinical improvement /. Patient seen and examined. States he feels that his left BKA wound has improved, stated there is less drainage. 12/29. Patient seen and examined. Hemoglobin this morning 6.9, will order 1 unit of packed red blood cell 12/31/2023 Patient left BKA stump with dressing in place. Pain controlled Patient sitting at bed edge eating, looks comfortable, no specific complaint Plan for left AKA by vascular surgery team on Sunday01/01/2024 Patient is planned to undergo left AKA with vascular surgery team tomorrow Patient currently is fully awake and oriented at baseline, he denies chest pain or dyspnea, no other complaints. His main complaint is pain at the left BKA stump which is ongoing since admission. Patient is hemodynamically stable and labs and vitals reviewed Patient had recent stress test which was negative for reversible ischemia on 12/13/2023. Patient cleared by perioperative assistant for procedure at that time Also patient recently had BKA during this hospitalization and he tolerated that as well regarding his breathing and kidney disease, his creatinine is stable around 2.5-3. Also his hemoglobin came down from 8.6 down to 7.2 today. Since is given for AKA surgery tomorrow we would recommend at least 1 unit of blood transfusion, patient informed and he agrees. He is currently on an aspirin 81 mg no other anticoagulation. Also we will consult general surgery for his anemia. Patient states last colonoscopy was [address] Anderson. However there is no GI coverage in this facility during this week. We will do occult blood in the stool test and anemia workup Objective - Vital Signs Vital signs: Vital Signs Temp 97.9 F 01/01/24 07:13 Pulse 60 01/01/24 07:13 Resp 17 01/01/24 07:13 BP 118/68 01/01/24 07:13 Pulse Ox 96 01/01/24 09:25 FiO2 21 01/01/24 09:25 Intake & Output 12/31/23 01/01/24 01/01/24 18:59 06:59 18:59 Output Total 350 Balance -350 Output: Urine 350 Other: Voiding Method Urinal Urinal # Voids 3 # Bowel Movements 1 - Exam GENERAL: The patient is alert and oriented x3, not in any acute distress. Well developed, well nourished. HEENT: Pupils are round and equally reacting to light. EOMI. No scleral icterus. No conjunctival pallor. Normocephalic, atraumatic. No pharyngeal erythema. No thyromegaly. CARDIOVASCULAR: S1 and S2 present. No murmurs, rubs, or gallops. PULMONARY: Chest is clear to auscultation, no wheezing or crackles. ABDOMEN: Soft, nontender, nondistended, normoactive bowel sounds. No palpable organomegaly. MUSCULOSKELETAL: Left BKA seen, purulent discharge seen. EXTREMITIES: No cyanosis, clubbing, or pedal edema. NEUROLOGICAL: Gross neurological examination did not reveal any focal deficits. SKIN: No rashes. - Labs CBC & Chem 7: 01/01/24 04:41 01/01/24 04:41 Labs: Abnormal Lab Results - Last 24 Hours (Table) 12/31/23 12/31/23 01/01/24 Range/Units 15:08 15:08 04:41 RBC 3.28 L 2.78 L (4.30-5.90) m/uL Hgb 8.6 L 7.2 L (13.0-17.5) gm/dL Hct 28.7 L 23.6 L (39.0-53.0) % MCH 25.9 L (27.0-32.0) pg MCHC 29.9 L 30.5 L (31.0-37.0) g/dL RDW 16.2 H 16.4 H (11.5-15.5) % MPV 9.3 L (9.5-12.2) FL Immature Gran # 0.06 H (0.00-0.04) X 10*3/uL Eosinophils # 1.70 H (0.04-0.35) X 10*3/uL Sodium 135 L (137-145) mmol/L BUN 29 H (9-20) mg/dL Creatinine 2.73 H (0.66-1.25) mg/dL Est GFR (CKD-EPI) (>=60) BUN/Creatinine Ratio (12.00-20.00) Ratio Calcium 8.1 L (8.4-10.2) mg/dL 01/01/24 Range/Units 04:41 RBC (4.30-5.90) m/uL Hgb (13.0-17.5) gm/dL Hct (39.0-53.0) % MCH (27.0-32.0) pg MCHC (31.0-37.0) g/dL RDW (11.5-15.5) % MPV (9.5-12.2) FL Immature Gran # (0.00-0.04) X 10*3/uL Eosinophils # (0.04-0.35) X 10*3/uL Sodium (137-145) mmol/L BUN (9-20) mg/dL Creatinine 2.8 H (0.66-1.25) mg/dL Est GFR (CKD-EPI) 25 L (>=60) BUN/Creatinine Ratio 9.61 L (12.00-20.00) Ratio Calcium 7.6 L (8.4-10.2) mg/dL Assessment and Plan Assessment: Surgical site infection of left BKA. Plan to undergo left AKA on 01/01 Recent gangrene of left lower extremity leading to BKA. Recurrent normocytic hypochromic anemia. History of peripheral vascular disease with chronic critical left lower extremity ischemia s/p left common femoral and endarterectomy and left femoral- popliteal bypass Left sided renal mass CKD stage IV COPD Nicotine dependence Anxiety and depression Plan: Patient is planned to undergo a left AKA tomorrow 01/01. Patient had recent negative stress test. He tolerated the procedure during this hospitalization with no respiratory or renal complication. From medical perspective patient is still at risk from AKA surgery however there is no absolute contraindication from medical perspective and he can proceed with surgery. However we would recommend to give 1 unit of blood transfusion for anemia. Consult general surgery team for his anemia Xarelto 2.5 mg twice daily which is home medication was placed on hold for the anemia Follow-up on blood culture Follow-up on wound cultures Continue aspirin, Toprol-XL continue aspirin 81 mg Continue wound care Continue daptomycin and meropenem Vascular surgery following, planning surgical intervention on 12/31 ID following Labs and medication were reviewed.. Continue same treatment. Continue with symptomatic treatment. Resume home medication. Monitor labs and vitals. DVT and GI prophylaxis. Further recommendations as per clinical course of the patient
--- NOTE | 2024-01-01 13:49 | P.GSCN ---
History of Present Illness Consult date: 01/01/24 History of present illness: CHIEF COMPLAINT: Infection at left leg surgical site HISTORY OF PRESENT ILLNESS: This is a 58-year-old male with history of left below the knee amputation. He has developed developed infection at the incision site and came back into the ER and is scheduled for left leg opzmr-wyk-sdca amputation with vascular surgical service tomorrow. Patient has been anemic and has required 2 blood transfusions during this admission. His lowest hemoglobin was 6.9 and hemoglobin today is 7.2 and scheduled for another unit of blood. Patient does have a past history of duodenal ulcer noted on EGD in 2017 colonoscopy at that time had shown colon polyp and diverticulosis. Patient denies any blood in his stools or any black stools. Denies any nausea or vomiting. Denies any abdominal pain. Patient denies any bloody drainage from the infected incision site. PAST MEDICAL HISTORY: COPD. Peripheral vascular disease.DVT R leg-recent R femoral popliteal bypass at [facility] 02/22/17, anxiety and depression PAST SURGICAL HISTORY: R fem pop bypass 02/22/17 [facility], bilateral knee arthroscopic surgeries. 12/17/23 L BTK amputation MEDICATIONS: See below ALLERGIES: See below SOCIAL HISTORY: No illicit drug use. Nicotine dependence. Alcohol use daily REVIEW OF SYSTEMS: CONSTITUTIONAL: Denies fever or chills. HEENT: Denies blurred vision, vision changes, or eye pain. Denies hemoptysis CARDIOVASCULAR: Denies chest pain or pressure. RESPIRATORY: No shortness of breath. GASTROINTESTINAL: See HPI for pertinent findings HEMATOLOGIC: Denies bleeding disorders. GENITOURINARY: Denies any blood in urine or increased urinary frequency. SKIN: Denies pruitis. Denies rash. PHYSICAL EXAM: VITAL SIGNS: Reviewed GENERAL: Well-developed in no acute distress. HEENT: No sclera icterus. Extraocular movements grossly intact. Moist buccal mucosa. Head is atraumatic, normocephalic. No nasal drainage. ABDOMEN: Soft. Nondistended. Nontender NEUROLOGIC: Alert and oriented. Cranial nerves II through XII grossly intact. LABORATORY DATA: WBC 8.27 Hgb 7.2 platelets 336 Sodium 136 potassium 4.3 creatinine 2.8 Albumin 2.2 IMAGING: ASSESSMENT: 1. Normocytic anemia 2. Severe protein calorie malnutrition 3. Infection at surgical site of the left below-knee amputation 4. History of duodenal ulcer PLAN: -Vascular surgery has patient scheduled for left above-knee amputation for tomorrow -Recommend EGD for with Dr. Mireles -Continue to hold Xarelto -Continue to monitor hemoglobin -Continue to monitor for any signs or symptoms of bleeding -Agree with checking stool for occult blood Physician Lean Sensei note has been reviewed by physician. Signing provider agrees with the documented findings, assessment, and plan of care. 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 12/17/23 L BTK amputation Past Anesthesia/Blood Transfusion Reactions: No Reported Reaction Additional Past Anesthesia/Blood Transfusion Reaction / Comm: . Past Psychological History: Anxiety, Depression Additional Psychological History / Comment(s): Pt resides alone Smoking Status: Current every day smoker Past Alcohol Use History: Daily, Heavy Additional Past Alcohol Use History / Comment(s): Pt started smoking around 1986 and quit 02/22/17. He states he used to drink about 2 drinks a day but quit all drinking on 02/22/17. Past Drug Use History: None Reported - Past Family History Mother Family Medical History: Cancer, Hyperlipidemia Additional Family Medical History / Comment(s): Mother had skin cancer. She is living. Father Family Medical History: Hyperlipidemia, Hypertension Additional Family Medical History / Comment(s): Father has heart condition. Medications and Allergies Home Medications Medication Instructions Recorded Confirmed Type Atorvastatin [Lipitor] 40 mg PO HS tab 09/10/23 12/24/23 Rx Mirtazapine [Remeron] 15 mg PO HS tab 09/10/23 12/24/23 Rx Thiamine [Vitamin B-1] 100 mg PO DAILY #30 tab 09/19/23 12/24/23 Rx Acetaminophen [Tylenol Arthritis] 650 mg PO Q6H PRN 11/05/23 12/24/23 History Citalopram Hydrobromide [CeleXA] 40 mg PO DAILY 11/05/23 12/24/23 History Naloxone HCl [Narcan] 4 mg NASAL ONCE PRN 11/05/23 12/24/23 History Metoprolol Succinate (ER) [Toprol 25 mg PO DAILY 11/22/23 12/24/23 History XL] Rivaroxaban [Xarelto] 2.5 mg PO BID 11/22/23 12/24/23 History Tamsulosin [Flomax] 0.4 mg PO DAILY 11/22/23 12/24/23 History Ascorbic Acid [Vitamin C] 500 mg PO DAILY 12/05/23 12/24/23 History Aspirin EC [Ecotrin Low Dose] 81 mg PO DAILY 12/05/23 12/24/23 History Calcium Carbonate/Vitamin D3 1 tab PO DAILY 12/05/23 12/24/23 History [Calcium 600 mg-Vit D3 5 mcg (200 unit)] Amiodarone [Cordarone] 200 mg PO BID tab 12/20/23 12/24/23 Rx Famotidine [Pepcid] 20 mg PO DAILY tab 12/20/23 12/24/23 Rx Gabapentin [Neurontin] 300 mg PO BID #4 cap 12/20/23 12/24/23 Rx Magnesium Oxide [Mag-Ox] 400 mg PO BID tab 12/20/23 12/24/23 Rx Sennosides [Senokot] 8.6 mg PO BID tab 12/20/23 12/24/23 Rx Sodium Bicarbonate Tab 650 mg PO BID tab 12/20/23 12/24/23 Rx oxyCODONE-APAP 7.5-325MG [Percocet 1 tab PO Q6H PRN 12/24/23 12/24/23 History 7.5-325 mg] Allergies Allergy/AdvReac Type Severity Reaction Status Date / Time No Known Allergies Allergy Verified 12/24/23 16:46 Surgical - Exam Vital Signs Temp Pulse Resp BP Pulse Ox 98.2 F 56 L 20 120/69 100 12/24/23 15:30 12/24/23 15:30 12/24/23 15:30 12/24/23 15:30 12/24/23 15:30 Results - Labs 01/01/24 04:41 01/01/24 04:41 Abnormal Lab Results - Last 24 Hours (Table) 06/12/31/23 12/31/23 Range/Units 11:11 15:08 15:08 RBC 3.28 L (4.30-5.90) m/uL Hgb 8.6 L (13.0-17.5) gm/dL Hct 28.7 L (39.0-53.0) % MCH (27.0-32.0) pg MCHC 29.9 L (31.0-37.0) g/dL RDW 16.2 H (11.5-15.5) % MPV (9.5-12.2) FL Immature Gran # (0.00-0.04) X 10*3/uL Eosinophils # (0.04-0.35) X 10*3/uL Sodium 135 L (137-145) mmol/L BUN 29 H (9-20) mg/dL Creatinine 2.73 H (0.66-1.25) mg/dL Est GFR (CKD-EPI) (>=60) BUN/Creatinine Ratio (12.00-20.00) Ratio Calcium 8.1 L (8.4-10.2) mg/dL Crossmatch See Detail 01/01/24 01/01/24 Range/Units 04:41 04:41 RBC 2.78 L (4.30-5.90) m/uL Hgb 7.2 L (13.0-17.5) gm/dL Hct 23.6 L (39.0-53.0) % MCH 25.9 L (27.0-32.0) pg MCHC 30.5 L (31.0-37.0) g/dL RDW 16.4 H (11.5-15.5) % MPV 9.3 L (9.5-12.2) FL Immature Gran # 0.06 H (0.00-0.04) X 10*3/uL Eosinophils # 1.70 H (0.04-0.35) X 10*3/uL Sodium (137-145) mmol/L BUN (9-20) mg/dL Creatinine 2.8 H (0.66-1.25) mg/dL Est GFR (CKD-EPI) 25 L (>=60) BUN/Creatinine Ratio 9.61 L (12.00-20.00) Ratio Calcium 7.6 L (8.4-10.2) mg/dL Crossmatch Diabetes panel 12/31/23 01/01/24 Range/Units 15:08 04:41 Sodium 135 L 136 (137-145) mmol/L Potassium 4.5 4.3 (3.5-5.1) mmol/L Chloride 105 103 (98-107) mmol/L Carbon Dioxide 26 26.9 (22-30) mmol/L BUN 29 H 26.9 (9-20) mg/dL Creatinine 2.73 H 2.8 H (0.66-1.25) mg/dL Glucose 87 78 (74-99) mg/dL Calcium 8.1 L 7.6 L (8.4-10.2) mg/dL Calcium panel 12/31/23 01/01/24 Range/Units 15:08 04:41 Calcium 8.1 L 7.6 L (8.4-10.2) mg/dL Pituitary panel 12/31/23 01/01/24 Range/Units 15:08 04:41 Sodium 135 L 136 (137-145) mmol/L Potassium 4.5 4.3 (3.5-5.1) mmol/L Chloride 105 103 (98-107) mmol/L Carbon Dioxide 26 26.9 (22-30) mmol/L BUN 29 H 26.9 (9-20) mg/dL Creatinine 2.73 H 2.8 H (0.66-1.25) mg/dL Glucose 87 78 (74-99) mg/dL Calcium 8.1 L 7.6 L (8.4-10.2) mg/dL Adrenal panel 12/31/23 01/01/24 Range/Units 15:08 04:41 Sodium 135 L 136 (137-145) mmol/L Potassium 4.5 4.3 (3.5-5.1) mmol/L Chloride 105 103 (98-107) mmol/L Carbon Dioxide 26 26.9 (22-30) mmol/L BUN 29 H 26.9 (9-20) mg/dL Creatinine 2.73 H 2.8 H (0.66-1.25) mg/dL Glucose 87 78 (74-99) mg/dL Calcium 8.1 L 7.6 L (8.4-10.2) mg/dL
[2024-01-01 16:00] LABS: % Iron Saturation 10.13 (15.00-50.00)
--- NOTE | 2024-01-01 16:42 | P.PN ---
Subjective Progress Note Date: 01/01/24 Principal diagnosis: Reason for follow-up is left BKA stump wound infection Patient is a 58-year-old male with a past medical history significant for COPD DVT right lower extremity in this patient dealing with the left foot gangrene cellulitis failing medical therapy and the patient is recently status post left below the knee amputation patient presented back to the hospital with left BKA surgical wound dehiscence and infection. On today's evaluation that is 01/01/2024, patient has been afebrile, patient is breathing comfortably and is currently on room air, patient denies having any significant cough no chest pain shortness of breath, patient denies nausea vom iting or diarrhea and no abdominal pain, complaining of slight more pain to the left BKA stump today. Patient white count is 8.27, creatinine is 2.8 blood culture negative Objective - Vital Signs Vital signs: Vital Signs Temp 98.4 F 01/01/24 16:02 Pulse 56 L 01/01/24 16:02 Resp 18 01/01/24 16:02 BP 121/71 01/01/24 16:02 Pulse Ox 95 01/01/24 16:02 FiO2 21 01/01/24 09:25 Intake & Output 12/31/23 01/01/24 01/01/24 18:59 06:59 18:59 Intake Total 0 Output Total 350 Balance -350 0 Intake: Blood Product 0 Rc As-1 Unit 0 [id number] Output: Urine 350 Other: Voiding Method Urinal Urinal # Voids 3 # Bowel Movements 1 - Exam GENERAL DESCRIPTION: Middle-aged male lying in bed in no distress RESPIRATORY SYSTEM: Unlabored breathing , decreased breath sounds at bases HEART: S1 S2 regular rate and rhythm , ABDOMEN: Soft , no tenderness EXTREMITIES: Left BKA stump wound currently dressed - Labs CBC & Chem 7: 01/01/24 04:41 01/01/24 04:41 Labs: Abnormal Lab Results - Last 24 Hours (Table) 12/30/23 01/01/24 01/01/24 Range/Units 11:11 04:41 04:41 RBC 2.78 L (4.40-5.60) X 10*6/uL Hgb 7.2 L (13.0-17.0) g/dL Hct 23.6 L (39.6-50.0) % MCH 25.9 L (27.0-32.0) pg MCHC 30.5 L (32.0-37.0) g/dL RDW 16.4 H (11.5-14.5) % MPV 9.3 L (9.5-12.2) FL Immature Gran # 0.06 H (0.00-0.04) X 10*3/uL Eosinophils # 1.70 H (0.04-0.35) X 10*3/uL Creatinine 2.8 H (0.6-1.5) mg/dL Est GFR (CKD-EPI) 25 L (>=60) BUN/Creatinine Ratio 9.61 L (12.00-20.00) Ratio Calcium 7.6 L (8.7-10.3) mg/dL Iron (65-175) UG/DL TIBC (228-460) UG/DL % Saturation (15.00-50.00) Transferrin (204.0-354.0) mg/dL Ferritin (22.0-322.0) ng/mL Crossmatch See Detail 01/01/24 Range/Units 04:41 RBC (4.40-5.60) X 10*6/uL Hgb (13.0-17.0) g/dL Hct (39.6-50.0) % MCH (27.0-32.0) pg MCHC (32.0-37.0) g/dL RDW (11.5-14.5) % MPV (9.5-12.2) FL Immature Gran # (0.00-0.04) X 10*3/uL Eosinophils # (0.04-0.35) X 10*3/uL Creatinine (0.6-1.5) mg/dL Est GFR (CKD-EPI) (>=60) BUN/Creatinine Ratio (12.00-20.00) Ratio Calcium (8.7-10.3) mg/dL Iron 16 L (65-175) UG/DL TIBC 158 L (228-460) UG/DL % Saturation 10.13 L (15.00-50.00) Transferrin 113.0 L (204.0-354.0) mg/dL Ferritin 648.0 H (22.0-322.0) ng/mL Crossmatch Assessment and Plan (1) Infection due to ESBL-producing Klebsiella pneumoniae Current Visit: Yes Status: Acute Code(s): A49.8 - OTHER BACTERIAL INFECTIONS OF UNSPECIFIED SITE; Z16.12 - EXTENDED SPECTRUM BETA LACTAMASE (ESBL) RESISTANCE SNOMED Code(s): 268257450 (2) Deep incisional surgical site infection Current Visit: Yes Status: Acute Code(s): T81.42XA - INFCT FOL A PROCEDURE, DEEP INCISIONAL SURGICAL SITE, INIT SNOMED Code(s): 169467989 (3) Cellulitis of left leg Current Visit: No Status: Acute Code(s): L03.116 - CELLULITIS OF LEFT LOWER LIMB SNOMED Code(s): 53430183208078462 Plan: 1patient presented to hospital with left BKA stump incision dehiscence cellulitis will need to cover for the resistant gram-positive as well as gram- negative keeping in mind recent multiple admission to the hospital 2-patient with renal sufficiency high risk of nephrotoxicity from vancomycin 3-patient local culture currently growing ESBL Klebsiella as well as VRE and Achromobacter 4-patient is afebrile, white count has normalized patient is currently covered with the meropenem and daptomycin possible plan for left [id number] potation per vascular surgery and will monitor clinical course closely Dictation was produced using [employer] dictation software. please excuse any grammatical, word or spelling errors. Time with Patient: Less than 30
[2024-01-02 04:40] LABS: HCT 26.8 % (39.0-53.0); HGB 8.6 gm/dL (13.0-17.5); Hypochromasia Marked; MCHC 32.3 g/dL (31.0-37.0); MCV 83.5 fL (80.0-100.0); Mean Platelet Volume 7.8; Platelet Count 340 k/uL (150-450); RBC 3.21 m/uL (4.30-5.90); RDW 15.4 % (11.5-15.5); WBC 9.2 k/uL (3.8-10.6)
[2024-01-02 04:58] LABS: African American GFR (CKD) 31 (>60 ml/min/1.73 sqM); Anion Gap 3 mmol/L; Blood Urea Nitrogen 27 mg/dL (9-20); Calcium 7.9 mg/dL (8.4-10.2); Carbon Dioxide 27 mmol/L (22-30); Chloride 105 mmol/L (98-107); Glucose 80 mg/dL (74-99); Non-African American GFR(CKD) 27 (>60 ml/min/1.73 sqM); Potassium 4.5 mmol/L (3.5-5.1); Sodium 135 mmol/L (137-145)
[2024-01-02] MEDS ORDERED: PHENYLEPHRINE-0.9% NACL SYG 1,000 MCG/10 ML SYRINGE ONE (10:25)
[2024-01-02] MEDS ORDERED: KETAMINE HCL IN 0.9 % NACL 50 MG/5 ML SYRINGE ONE (10:25)
[2024-01-02] MEDS ORDERED: MIDAZOLAM 2 MG/2 ML VIAL ONE (10:25)
[2024-01-02] MEDS ORDERED: NEOSTIGMINE 1 MG/ML 10 ML VIAL ONE (10:25)
[2024-01-02] MEDS ORDERED: PROPOFOL 10 MG/ML 20 ML VIAL IV ONE (10:25)
[2024-01-02] MEDS ORDERED: LIDOCAINE 1% INJ 10MG/ML (20 ML MDV) ONE (10:25)
[2024-01-02] MEDS ORDERED: ROCURONIUM 10 MG/ML (5 ML VIAL) IV ONE (10:25)
[2024-01-02] MEDS ORDERED: SUCCINYLCHOLINE CHLORIDE 200 MG/10 ML VIAL IV ONE (10:25)
[2024-01-02] MEDS ORDERED: HYDROmorphone (PF) 1 MG/ML ONE (10:25)
[2024-01-02] MEDS ORDERED: fentaNYL (PF) 50 MCG/ML 2 ML AMP ONE (10:25)
[2024-01-02] MEDS ORDERED: GLYCOPYRROLATE 0.2 MG/ML 2 ML VIAL ONE (10:25)
--- NOTE | 2024-01-02 12:09 | P.PN ---
Subjective patient is a 58-year-old gentleman with past medical history significant for peripheral disease, COPD who recently underwent BKA secondary to gangrene of left lower extremity who presented to the ER because of left BKA site not healing well. Stated that he has been noticing that the wound is not healing well, noticed discharge which looked like pus coming from the wound. There was no complaint of fever or chills. Patient is complaining of increasing pain at the stump site. There is no complaint of nausea vomiting. Denies any abdominal pain. Because of the symptoms, patient came to the ER Initial lab work done in the ER showed WBC 11.9, hemoglobin 8.7, platelet count 411, sodium 137, potassium 4.2, BUN 33, creatinine 2.87, lactate 1.2, alk phos 147 EKG done in the ER showed heart rate of 54 , no ST segment elevation or depression seen, no T-wave inversions seen. X-ray of left knee done showed status BKA, distal cortical irregularity at fibular amputation site, concerning for osteo Patient admitted to internal medicine service 12/25. Patient seen examined. Sitting upright in the bed. No acute issues overnight 12/26. Patient seen and examined. Antibiotics changed to daptomycin and meropenem. States he feels better. Denies any fever or chills. Denies any worsening pain in his left stump 12/27. Patient seen and examined. Left BKA stump site has purulent drainage, vascular surgery has evaluated patient, planning surgical intervention on Sunday if there is no clinical improvement /. Patient seen and examined. States he feels that his left BKA wound has improved, stated there is less drainage. 12/29. Patient seen and examined. Hemoglobin this morning 6.9, will order 1 unit of packed red blood cell 12/31/2023 Patient left BKA stump with dressing in place. Pain controlled Patient sitting at bed edge eating, looks comfortable, no specific complaint Plan for left AKA by vascular surgery team on Sunday01/01/2024 Patient is planned to undergo left AKA with vascular surgery team tomorrow Patient currently is fully awake and oriented at baseline, he denies chest pain or dyspnea, no other complaints. His main complaint is pain at the left BKA stump which is ongoing since admission. Patient is hemodynamically stable and labs and vitals reviewed Patient had recent stress test which was negative for reversible ischemia on 12/13/2023. Patient cleared by gas torch brazier for procedure at that time Also patient recently had BKA during this hospitalization and he tolerated that as well regarding his breathing and kidney disease, his creatinine is stable around 2.5-3. Also his hemoglobin came down from 8.6 down to 7.2 today. Since is given for AKA surgery tomorrow we would recommend at least 1 unit of blood transfusion, patient informed and he agrees. He is currently on an aspirin 81 mg no other anticoagulation. Also we will consult general surgery for his anemia. Patient states last colonoscopy was [address] Anderson. However there is no GI coverage in this facility during this week. We will do occult blood in the stool test and anemia workup 01/02/2024 Patient is awake and alert, sitting up at bedside, smiling and joking. He looks relaxed. Denies chest pain or dyspnea. His breathing is okay and there is no evidence of wheezing or significant crepitation. Abdomen soft. His pain of the left BKA stump is controlled. He had 1 bowel movement which was normal for him He got 1 unit of blood transfusion yesterday and hemoglobin went up today 8.6 Anemia workup showing anemia of chronic disease/inflammation. Surgery was consulted and were thinking of colonoscopy on however patient is not really encouraged about doing colonoscopy but he wants his left BKA stump addressed more importantly for him. Xarelto remains on hold for low hemoglobin. Objective - Vital Signs Vital signs: Vital Signs Temp 98.2 F 01/02/24 08:00 Pulse 65 01/02/24 08:00 Resp 16 01/02/24 08:00 BP 121/69 01/02/24 08:00 Pulse Ox 94 L 01/02/24 02:11 FiO2 21 01/01/24 09:25 Intake & Output 01/01/24 01/02/24 01/02/24 18:59 06:59 18:59 Intake Total 510 Balance 510 Intake: Intake, IV Titration 200 Amount DAPTOmycin 400 mg In 100 Sodium Chloride 0.9% 50 ml @ 100 mls/hr IVPB Q24HR [facility] Rx#:[id number] Meropenem 1 gm In Sodium 100 Chloride 0.9% 100 ml @ 33 .3 mls/hr IVPB Q8H [facility] Rx #:[id number] Blood Product 310 Rc As-1 Unit 310 [id number] Other: Voiding Method Urinal Urinal # Voids 4 - Exam GENERAL: The patient is alert and oriented x3, not in any acute distress. Well developed, well nourished. HEENT: Pupils are round and equally reacting to light. EOMI. No scleral icterus. No conjunctival pallor. Normocephalic, atraumatic. No pharyngeal erythema. No thyromegaly. CARDIOVASCULAR: S1 and S2 present. No murmurs, rubs, or gallops. PULMONARY: Chest is clear to auscultation, no wheezing or crackles. ABDOMEN: Soft, nontender, nondistended, normoactive bowel sounds. No palpable organomegaly. MUSCULOSKELETAL: Left BKA seen, purulent discharge seen. EXTREMITIES: No cyanosis, clubbing, or pedal edema. NEUROLOGICAL: Gross neurological examination did not reveal any focal deficits. SKIN: No rashes. - Labs CBC & Chem 7: 01/02/24 04:01 01/02/24 04:01 Labs: Abnormal Lab Results - Last 24 Hours (Table) 12/30/23 01/01/24 01/02/24 Range/Units 11:11 04:41 04:01 RBC 3.21 L (4.30-5.90) m/uL Hgb 8.6 L (13.0-17.5) gm/dL Hct 26.8 L (39.0-53.0) % Sodium (137-145) mmol/L BUN (9-20) mg/dL Creatinine (0.66-1.25) mg/dL Calcium (8.4-10.2) mg/dL Iron 16 L (65-175) UG/DL TIBC 158 L (228-460) UG/DL % Saturation 10.13 L (15.00-50.00) Transferrin 113.0 L (204.0-354.0) mg/dL Ferritin 648.0 H (22.0-322.0) ng/mL Crossmatch See Detail 01/02/24 Range/Units 04:01 RBC (4.30-5.90) m/uL Hgb (13.0-17.5) gm/dL Hct (39.0-53.0) % Sodium 135 L (137-145) mmol/L BUN 27 H (9-20) mg/dL Creatinine 2.48 H (0.66-1.25) mg/dL Calcium 7.9 L (8.4-10.2) mg/dL Iron (65-175) UG/DL TIBC (228-460) UG/DL % Saturation (15.00-50.00) Transferrin (204.0-354.0) mg/dL Ferritin (22.0-322.0) ng/mL Crossmatch Assessment and Plan Assessment: Surgical site infection of left BKA. Plan to undergo left AKA on 01/01 Recent gangrene of left lower extremity leading to BKA. Recurrent normocytic hypochromic anemia. S/p 2 minutes of blood transfusion. Surgery team on the case History of peripheral vascular disease with chronic critical left lower extremity ischemia s/p left common femoral and endarterectomy and left femoral- popliteal bypass Left sided renal mass CKD stage IV COPD Nicotine dependence Anxiety and depression Plan: Patient is planned to undergo a left AKA today 01/01. Patient had recent negative stress test. He tolerated the procedure during this hospitalization with no respiratory or renal complication. From medical perspective patient is still at risk from AKA surgery however there is no absolute contraindication from medical perspective and he can proceed with surgery. Consult general surgery team for his anemia, general surgery plan for colonoscopy on . However patient is not sure if he wants to do this Xarelto 2.5 mg twice daily which is home medication was placed on hold for the anemia Follow-up on blood culture Follow-up on wound cultures Continue aspirin, Toprol-XL continue aspirin 81 mg Continue wound care Continue daptomycin and meropenem Vascular surgery following, planning surgical intervention on 12/31 ID following Labs and medication were reviewed.. Continue same treatment. Continue with symptomatic treatment. Resume home medication. Monitor labs and vitals. DVT and GI prophylaxis. Further recommendations as per clinical course of the patient
--- NOTE | 2024-01-02 12:58 | P.PN ---
Subjective Progress Note Date: 01/02/24 CHIEF COMPLAINT: Infection at surgical site HISTORY OF PRESENT ILLNESS: Surgical service following regards to patient's anemia. Patient has had no blood in the stools. No black stools. Hemoglobin did go up from 7.2-8.6 after blood transfusion. He denies any abdominal pain. Denies any nausea or vomiting. He is scheduled for a left zjxvi-isi-mkay amputation today with vascular surgery. PHYSICAL EXAM: VITAL SIGNS: Reviewed. GENERAL: Well-developed in no acute distress. ABDOMEN: Soft. Nondistended. Nontender. NEUROLOGIC: Alert and oriented. Cranial nerves II through XII grossly intact. ASSESSMENT: 1. Normocytic anemia 2. Severe protein calorie malnutrition 3. Infection at surgical site of the left below-knee amputation 4. History of duodenal ulcer PLAN: -Patient has refused EGD during this admission -Recommend EGD outpatient when patient is medically stable -Educated patient to monitor for any blood or melanotic stools -Continue to monitor hemoglobin Physician Real Estate Legal Assistant note has been reviewed by physician. Signing provider agrees with the documented findings, assessment, and plan of care. Objective - Vital Signs Vital signs: Vital Signs Temp 98.2 F 01/02/24 08:00 Pulse 65 01/02/24 08:00 Resp 16 01/02/24 08:00 BP 121/69 01/02/24 08:00 Pulse Ox 94 L 01/02/24 02:11 FiO2 21 01/01/24 09:25 Intake & Output 01/01/24 01/02/24 01/02/24 18:59 06:59 18:59 Intake Total 510 Balance 510 Intake: Intake, IV Titration 200 Amount DAPTOmycin 400 mg In 100 Sodium Chloride 0.9% 50 ml @ 100 mls/hr IVPB Q24HR [facility] Rx#:[id number] Meropenem 1 gm In Sodium 100 Chloride 0.9% 100 ml @ 33 .3 mls/hr IVPB Q8H [facility] Rx #:[id number] Blood Product 310 Rc As-1 Unit 310 [id number] Other: Voiding Method Urinal Urinal # Voids 4 - Labs CBC & Chem 7: 01/02/24 04:01 01/02/24 04:01 Labs: Abnormal Lab Results - Last 24 Hours (Table) 12/30/23 01/01/24 01/02/24 Range/Units 11:11 04:41 04:01 RBC 3.21 L (4.30-5.90) m/uL Hgb 8.6 L (13.0-17.5) gm/dL Hct 26.8 L (39.0-53.0) % Sodium (137-145) mmol/L BUN (9-20) mg/dL Creatinine (0.66-1.25) mg/dL Calcium (8.4-10.2) mg/dL Iron 16 L (65-175) UG/DL TIBC 158 L (228-460) UG/DL % Saturation 10.13 L (15.00-50.00) Transferrin 113.0 L (204.0-354.0) mg/dL Ferritin 648.0 H (22.0-322.0) ng/mL Crossmatch See Detail 01/02/24 Range/Units 04:01 RBC (4.30-5.90) m/uL Hgb (13.0-17.5) gm/dL Hct (39.0-53.0) % Sodium 135 L (137-145) mmol/L BUN 27 H (9-20) mg/dL Creatinine 2.48 H (0.66-1.25) mg/dL Calcium 7.9 L (8.4-10.2) mg/dL Iron (65-175) UG/DL TIBC (228-460) UG/DL % Saturation (15.00-50.00) Transferrin (204.0-354.0) mg/dL Ferritin (22.0-322.0) ng/mL Crossmatch
[2024-01-02] MEDS: IV FLUID CONTINUATION 200 ML IV ONE (14:42)
[2024-01-02] MEDS: ONDANSETRON 4 MG/2 ML VIAL IVP STA (15:09)
[2024-01-02] MEDS: DEXAMETHASONE SOD PHOSPHATE 4 MG/ML 1 ML VIAL IVP STA (15:10)
[2024-01-02] MEDS: MIDAZOLAM 2 MG/2 ML VIAL IVP ONE (15:16)
[2024-01-02] MEDS: IV FLUID CONTINUATION 1,000 ML IV ONE (15:56)
[2024-01-02] MEDS: IV FLUID CONTINUATION 250 ML IV ONE (17:09)
--- NOTE | 2024-01-02 17:19 | P.OP ---
Date of Procedure: 01/02/24 Description of Procedure: Preoperative diagnosis: Nonhealing left below-knee amputation wound Postoperative diagnosis: Same Procedure: Left above-knee amputation Surgeon: Surekha Stearns D.O. Anesthesia: General endotracheal EBL: 400 cc IV fluids: See records, 1 unit PRBC Urine output: Not measured Drains: None Complications: None immediately apparent Condition: Stable to recovery Operative indication and findings: Patient is a 58-year-old male with a previous left below-knee amputation with significant issues with nonhealing and the wide open flap at this point he is recommended undergo an above-knee amputation. Risks and benefits were discussed including but not limited to bleeding, infection and and poor wound healing. He stated he understood and was willing to proceed. Procedure in detail: The patient was taken to the operative suite and placed in supine position. After adequate anesthesia, the left lower extremity was prepped and draped in usual sterile fashion. A preprocedure timeout was performed, all parties were in agreement. Skin marker was utilized and the incision was marked approximately 5 cm proximal to the knee joint. Skin incision was performed and deepened through the subcutaneous tissues to the muscular fascia. The saphenous vein was identified and ligated with 2-0 silk and divided. The muscle groups of the anterior and medial thigh were divided with electrocautery at the same level of the skin incision. The neurovascular bundle was identified on the medial aspect of the thigh. The artery and veins were isolated and suture ligated using 2-0 silk ligature. The sciatic nerve was pulled on stretch and ligated with 2-0 silk tie and divided. The femur was then cleared of its periosteal tissue is elevated roughly 5 cm proximally and was divided with the oscillating saw. The posterior thigh muscles were then divided with electrocautery. The proximal end of the transected femur was smoothed with a rasp. The amputation site was then copiously irrigated. Hemostasis was controlled with electrocautery. The periosteum was reapproximated using inte rrupted sutures of 2-0 Vicryl. The fascia was reapproximated with interrupted odpaim-lg-obhfe sutures of 2-0 Vicryl. The skin was reapproximated with danna. A dressing with gauze, Kerlix and a bandage were placed. The patient tolerated the procedure well and was transported to PACU in stable condition
[2024-01-02] MEDS: IPRATROPIUM-ALBUTEROL 3 ML NEB INHALATION STA (17:50)
[2024-01-02 18:58] LABS: HCT 27.8 % (39.0-53.0); HGB 8.5 gm/dL (13.0-17.5); Hypochromasia Marked; MCH 26.6 pg (25.0-35.0); MCHC 30.6 g/dL (31.0-37.0); MCV 87.1 fL (80.0-100.0); Mean Platelet Volume 7.5; Platelet Count 356 k/uL (150-450); RDW 15.7 % (11.5-15.5); WBC 11.3 k/uL (3.8-10.6)
[2024-01-03] MEDS: LACTATED RINGERS 1,000 ML IV SCH (00:14)
[2024-01-03 10:36] LABS: HCT 25.4 % (39.6-50.0); HGB 7.9 g/dL (13.0-17.0); MCH 27.1 pg (27.0-32.0); MCHC 31.1 g/dL (32.0-37.0); Mean Platelet Volume 9.6 FL (9.5-12.2); NRBC Per 100 WBC 0 X 10*3/uL (0.00-0.01); Platelet Count 377 X 10*3/uL (140-440); RBC 2.92 X 10*6/uL (4.40-5.60); RDW 16.3 % (11.5-14.5)
[2024-01-03 10:47] LABS: BUN/Creat Ratio 10.76 Ratio (12.00-20.00); Blood Urea Nitrogen 26.9 mg/dL (9.0-27.0); Calcium 7.9 mg/dL (8.7-10.3); Carbon Dioxide 24.6 mmol/L (21.6-31.8); Chloride 100 mmol/L (96-109); Glucose 123 mg/dL (70-110); Potassium 5.1 mmol/L (3.5-5.5); Sodium 136 mmol/L (135-145)
[2024-01-03] MEDS: HYDROmorphone 1 MG/ML 1 ML SYRINGE IVP STA (11:18)
--- NOTE | 2024-01-03 11:20 | P.PN ---
Subjective Progress Note Date: 01/03/24 Principal diagnosis: Recent left BKA Patient is seen and examined today as a follow-up. He is postop day #1 for left ffquw-clo-evtn amputation. States he is having some pain but he had forgot to ask for pain medication so he felt a little bit behind. Otherwise he has no complaints. States that his dressing had come off a couple times through the night with minimal bleeding. He has been afebrile. Today's labs WBC 18.0 hemoglobin 7.9 platelet count 377,000 sodium 136 potassium 5.1 BUN 26.9 creatinine 2.5. General surgery was consulted per primary medical team and had recommended upper endoscopy however patient has declined. He continues to deny any evidence of GI bleed. Objective - Vital Signs Vital signs: Vital Signs Temp 98.2 F 01/03/24 08:00 Pulse 67 01/03/24 09:40 Resp 19 01/03/24 09:40 BP 109/66 01/03/24 08:00 Pulse Ox 90 L 01/03/24 08:00 FiO2 21 01/01/24 09:25 Intake & Output 01/02/24 01/03/24 01/03/24 18:59 06:59 18:59 Intake Total 877 Output Total 400 350 Balance 477 -350 Weight 99.79 kg Intake: IV 600 Blood Product 277 Rc Pheresis As-3 Unit 277 [id number] Output: Urine 350 Estimated Blood Loss 400 Other: Voiding Method Urinal Urinal # Voids 1 - Exam General appearance: The patient is alert, oriented, appears in no acute dist ress. HET: Head is normocephalic and atraumatic. Neck: Supple. Abdomen: Soft, nontender, nondistended. Extremities: Left ksngi-wlo-byhg amputation site well-approximated with danna, normal skin color, warm to the touch, minimal serosanguineous drainage. Neurological and: No focal deficits. Alert and oriented. - Labs CBC & Chem 7: 01/03/24 07:30 01/03/24 07:30 Labs: Abnormal Lab Results - Last 24 Hours (Table) 12/30/23 01/02/24 01/02/24 Range/Units 11:11 18:35 18:41 WBC 11.3 H (3.8-10.6) k/uL RBC 3.20 L (4.30-5.90) m/uL Hgb 8.5 L (13.0-17.5) gm/dL Hct 27.8 L (39.0-53.0) % MCHC 30.6 L (31.0-37.0) g/dL RDW 15.7 H (11.5-15.5) % Creatinine (0.6-1.5) mg/dL Est GFR (CKD-EPI) (>=60) BUN/Creatinine Ratio (12.00-20.00) Ratio Glucose (70-110) mg/dL Calcium (8.7-10.3) mg/dL Crossmatch See Detail See Detail 01/03/24 01/03/24 Range/Units 07:30 07:30 WBC 18.00 H (3.8-10.6) k/uL RBC 2.92 L (4.30-5.90) m/uL Hgb 7.9 L (13.0-17.5) gm/dL Hct 25.4 L (39.0-53.0) % MCHC 31.1 L (31.0-37.0) g/dL RDW 16.3 H (11.5-15.5) % Creatinine 2.5 H (0.6-1.5) mg/dL Est GFR (CKD-EPI) 29 L (>=60) BUN/Creatinine Ratio 10.76 L (12.00-20.00) Ratio Glucose 123 H (70-110) mg/dL Calcium 7.9 L (8.7-10.3) mg/dL Crossmatch Assessment and Plan Assessment: 1. Postop day #1 left hwlrk-qgk-xxde amputation 2. Gangrene left foot with recent left below the knee amputation nonhealing 3. Nonhealing left lower extremity wound, previous bypass wound dehiscence 4. Wound cultures positive for Klebsiella pneumoniae, Enterococcus faecium VRE, Achromobacter xylos/denitrif 5. Peripheral arterial disease with critical limb ischemia left lower extremity status post left common femoral endarterectomy and femoral to below-knee poplite al bypass 6. Chronic anemia Plan: 1. Daily dressing change with 4 x 4, Kerlix then apply stump an/syq 13 nav/c2 operator and rigid dressing 2. Antibiotics per recommendations from infectious disease 3. May resume anticoagulation 4. Daily CBC, BMP 5. Comfort prosthetics consulted for stump an/syq 13 nav/c2 operator and rigid dressing 6. Rest of medical management per primary medical team 7. Consult to physical therapy 8. Recommend subacute rehab on discharge Thank you for this consultation, we will continue to follow. The impression and plan of care has been dictated as directed. Dr. Stearns I performed a history and examination of this patient, discussed the same with the dictator. I agree with the dictator's note ,documented as a scribe. Any additional findings or plans will be noted.
--- NOTE | 2024-01-03 13:04 | P.PN ---
Subjective patient is a 58-year-old gentleman with past medical history significant for peripheral disease, COPD who recently underwent BKA secondary to gangrene of left lower extremity who presented to the ER because of left BKA site not healing well. Stated that he has been noticing that the wound is not healing well, noticed discharge which looked like pus coming from the wound. There was no complaint of fever or chills. Patient is complaining of increasing pain at the stump site. There is no complaint of nausea vomiting. Denies any abdominal pain. Because of the symptoms, patient came to the ER Initial lab work done in the ER showed WBC 11.9, hemoglobin 8.7, platelet count 411, sodium 137, potassium 4.2, BUN 33, creatinine 2.87, lactate 1.2, alk phos 147 EKG done in the ER showed heart rate of 54 , no ST segment elevation or depression seen, no T-wave inversions seen. X-ray of left knee done showed status BKA, distal cortical irregularity at fibular amputation site, concerning for osteo Patient admitted to internal medicine service 12/25. Patient seen examined. Sitting upright in the bed. No acute issues overnight 12/26. Patient seen and examined. Antibiotics changed to daptomycin and meropenem. States he feels better. Denies any fever or chills. Denies any worsening pain in his left stump 12/27. Patient seen and examined. Left BKA stump site has purulent drainage, vascular surgery has evaluated patient, planning surgical intervention on Sunday if there is no clinical improvement /. Patient seen and examined. States he feels that his left BKA wound has improved, stated there is less drainage. 12/29. Patient seen and examined. Hemoglobin this morning 6.9, will order 1 unit of packed red blood cell 12/31/2023 Patient left BKA stump with dressing in place. Pain controlled Patient sitting at bed edge eating, looks comfortable, no specific complaint Plan for left AKA by vascular surgery team on Sunday01/01/2024 Patient is planned to undergo left AKA with vascular surgery team tomorrow Patient currently is fully awake and oriented at baseline, he denies chest pain or dyspnea, no other complaints. His main complaint is pain at the left BKA stump which is ongoing since admission. Patient is hemodynamically stable and labs and vitals reviewed Patient had recent stress test which was negative for reversible ischemia on 12/13/2023. Patient cleared by human resources specialist for procedure at that time Also patient recently had BKA during this hospitalization and he tolerated that as well regarding his breathing and kidney disease, his creatinine is stable around 2.5-3. Also his hemoglobin came down from 8.6 down to 7.2 today. Since is given for AKA surgery tomorrow we would recommend at least 1 unit of blood transfusion, patient informed and he agrees. He is currently on an aspirin 81 mg no other anticoagulation. Also we will consult general surgery for his anemia. Patient states last colonoscopy was [address] Anderson. However there is no GI coverage in this facility during this week. We will do occult blood in the stool test and anemia workup 01/02/2024 Patient is awake and alert, sitting up at bedside, smiling and joking. He looks relaxed. Denies chest pain or dyspnea. His breathing is okay and there is no evidence of wheezing or significant crepitation. Abdomen soft. His pain of the left BKA stump is controlled. He had 1 bowel movement which was normal for him He got 1 unit of blood transfusion yesterday and hemoglobin went up today 8.6 Anemia workup showing anemia of chronic disease/inflammation. Surgery was consulted and were thinking of colonoscopy on however patient is not really encouraged about doing colonoscopy but he wants his left BKA stump addressed more importantly for him. Xarelto remains on hold for low hemoglobin. 01/03/2024 Patient is s/p left AKA yesterday. Today's postop day #1 He is awake and mentation at baseline, he is pleasant and relaxed Pain controlled no significant leakage and dressing is in place No chest pain no other new complaint Objective - Vital Signs Vital signs: Vital Signs Temp 98.2 F 01/03/24 08:00 Pulse 67 01/03/24 09:40 Resp 19 01/03/24 09:40 BP 109/66 01/03/24 08:00 Pulse Ox 90 L 01/03/24 08:00 FiO2 21 01/01/24 09:25 Intake & Output 01/02/24 01/03/24 01/03/24 18:59 06:59 18:59 Intake Total 877 Output Total 400 350 280 Balance 477 -350 -280 Weight 99.79 kg Intake: IV 600 Blood Product 277 Rc Pheresis As-3 Unit 277 [id number] Output: Urine 350 280 Estimated Blood Loss 400 Other: Voiding Method Urinal Urinal # Voids 1 - Exam GENERAL: The patient is alert and oriented x3, not in any acute distress. Well developed, well nourished. HEENT: Pupils are round and equally reacting to light. EOMI. No scleral icterus. No conjunctival pallor. Normocephalic, atraumatic. No pharyngeal erythema. No thyromegaly. CARDIOVASCULAR: S1 and S2 present. No murmurs, rubs, or gallops. PULMONARY: Chest is clear to auscultation, no wheezing or crackles. ABDOMEN: Soft, nontender, nondistended, normoactive bowel sounds. No palpable organomegaly. MUSCULOSKELETAL: Left BKA seen, purulent discharge seen. EXTREMITIES: No cyanosis, clubbing, or pedal edema. NEUROLOGICAL: Gross neurological examination did not reveal any focal deficits. SKIN: No rashes. - Labs CBC & Chem 7: 01/03/24 07:30 01/03/24 07:30 Labs: Abnormal Lab Results - Last 24 Hours (Table) 12/30/23 01/02/24 01/02/24 Range/Units 11:11 18:35 18:41 WBC 11.3 H (3.8-10.6) k/uL RBC 3.20 L (4.30-5.90) m/uL Hgb 8.5 L (13.0-17.5) gm/dL Hct 27.8 L (39.0-53.0) % MCHC 30.6 L (31.0-37.0) g/dL RDW 15.7 H (11.5-15.5) % Creatinine (0.6-1.5) mg/dL Est GFR (CKD-EPI) (>=60) BUN/Creatinine Ratio (12.00-20.00) Ratio Glucose (70-110) mg/dL Calcium (8.7-10.3) mg/dL Crossmatch See Detail See Detail 01/03/24 01/03/24 Range/Units 07:30 07:30 WBC 18.00 H (3.8-10.6) k/uL RBC 2.92 L (4.30-5.90) m/uL Hgb 7.9 L (13.0-17.5) gm/dL Hct 25.4 L (39.0-53.0) % MCHC 31.1 L (31.0-37.0) g/dL RDW 16.3 H (11.5-15.5) % Creatinine 2.5 H (0.6-1.5) mg/dL Est GFR (CKD-EPI) 29 L (>=60) BUN/Creatinine Ratio 10.76 L (12.00-20.00) Ratio Glucose 123 H (70-110) mg/dL Calcium 7.9 L (8.7-10.3) mg/dL Crossmatch Assessment and Plan Assessment: Surgical site infection of left BKA. Plan to undergo left AKA on 01/01 Recent gangrene of left lower extremity leading to BKA. Recurrent normocytic hypochromic anemia. S/p 2 minutes of blood transfusion. Surgery team on the case History of peripheral vascular disease with chronic critical left lower extremity ischemia s/p left common femoral and endarterectomy and left femoral- popliteal bypass Left sided renal mass CKD stage IV COPD Nicotine dependence Anxiety and depression Plan: Patient is planned to undergo a left AKA today 01/01. Patient had recent negative stress test. He tolerated the procedure during this hospitalization with no respiratory or renal complication. From medical perspective patient is still at risk from AKA surgery however there is no absolute contraindication from medical perspective and he can proceed with surgery. Consult general surgery team for his anemia, general surgery plan for colonoscopy on . However patient is not sure if he wants to do this Xarelto 2.5 mg twice daily which is home medication was placed on hold for the anemia Follow-up on blood culture Follow-up on wound cultures Continue aspirin, Toprol-XL continue aspirin 81 mg Continue wound care Continue daptomycin and meropenem Vascular surgery following, planning surgical intervention on 12/31 ID following Labs and medication were reviewed.. Continue same treatment. Continue with symptomatic treatment. Resume home medication. Monitor labs and vitals. DVT and GI prophylaxis. Further recommendations as per clinical course of the patient
--- NOTE | 2024-01-03 16:16 | P.PN ---
Subjective Progress Note Date: 01/02/24 Principal diagnosis: Reason for follow-up is left BKA stump wound infection Patient is a 58-year-old male with a past medical history significant for COPD DVT right lower extremity in this patient dealing with the left foot gangrene cellulitis failing medical therapy and the patient is recently status post left below the knee amputation patient presented back to the hospital with left BKA surgical wound dehiscence and infection. On today's evaluation that is 01/02/2024, Patient is afebrile this morning and denies any chills, patient mention breathing comfortably and is currently on room air, patient denies any chest pain occasional cough patient denies any abd ominal pain no diarrhea no nausea no vomiting, denies any worsening pain to the left BKA stump currently waiting for surgery. Patient white count is 11.3 Objective - Vital Signs Vital signs: Vital Signs Temp 97.8 F 01/02/24 14:43 Pulse 72 01/02/24 14:43 Resp 16 01/02/24 14:43 BP 152/80 01/02/24 14:43 Pulse Ox 96 01/02/24 14:43 FiO2 21 01/01/24 09:25 Intake & Output 01/01/24 01/02/24 01/02/24 18:59 06:59 18:59 Intake Total 510 Balance 510 Intake: Intake, IV Titration 200 Amount DAPTOmycin 400 mg In 100 Sodium Chloride 0.9% 50 ml @ 100 mls/hr IVPB Q24HR [facility] Rx#:[id number] Meropenem 1 gm In Sodium 100 Chloride 0.9% 100 ml @ 33 .3 mls/hr IVPB Q8H [facility] Rx #:[id number] Blood Product 310 Rc As-1 Unit 310 [id number] Other: Voiding Method Urinal Urinal # Voids 4 - Exam GENERAL DESCRIPTION: Middle-aged male lying in bed in no distress RESPIRATORY SYSTEM: Unlabored breathing , decreased breath sounds at bases HEART: S1 S2 regular rate and rhythm , ABDOMEN: Soft , no tenderness EXTREMITIES: Left BKA stump wound currently dressed - Labs CBC & Chem 7: 01/03/24 07:30 01/03/24 07:30 Labs: Abnormal Lab Results - Last 24 Hours (Table) 12/30/23 01/01/24 01/02/24 Range/Units 11:11 04:41 04:01 RBC 3.21 L (4.30-5.90) m/uL Hgb 8.6 L (13.0-17.5) gm/dL Hct 26.8 L (39.0-53.0) % Sodium (137-145) mmol/L BUN (9-20) mg/dL Creatinine (0.66-1.25) mg/dL Calcium (8.4-10.2) mg/dL Iron 16 L (65-175) UG/DL TIBC 158 L (228-460) UG/DL % Saturation 10.13 L (15.00-50.00) Transferrin 113.0 L (204.0-354.0) mg/dL Ferritin 648.0 H (22.0-322.0) ng/mL Crossmatch See Detail 01/02/24 Range/Units 04:01 RBC (4.30-5.90) m/uL Hgb (13.0-17.5) gm/dL Hct (39.0-53.0) % Sodium 135 L (137-145) mmol/L BUN 27 H (9-20) mg/dL Creatinine 2.48 H (0.66-1.25) mg/dL Calcium 7.9 L (8.4-10.2) mg/dL Iron (65-175) UG/DL TIBC (228-460) UG/DL % Saturation (15.00-50.00) Transferrin (204.0-354.0) mg/dL Ferritin (22.0-322.0) ng/mL Crossmatch Assessment and Plan (1) Infection due to ESBL-producing Klebsiella pneumoniae Current Visit: Yes Status: Acute Code(s): A49.8 - OTHER BACTERIAL INFECTIONS OF UNSPECIFIED SITE; Z16.12 - EXTENDED SPECTRUM BETA LACTAMASE (ESBL) RESISTANCE SNOMED Code(s): 816506117 (2) Deep incisional surgical site infection Current Visit: Yes Status: Acute Code(s): T81.42XA - INFCT FOL A PROCEDURE, DEEP INCISIONAL SURGICAL SITE, INIT SNOMED Code(s): 909190846 (3) Cellulitis of left leg Current Visit: No Status: Acute Code(s): L03.116 - CELLULITIS OF LEFT LOWER LIMB SNOMED Code(s): 59790690167591348 Plan: 1patient presented to hospital with left BKA stump incision dehiscence ce llulitis will need to cover for the resistant gram-positive as well as gram- negative keeping in mind recent multiple admission to the hospital 2-patient with renal sufficiency high risk of nephrotoxicity from vancomycin 3-patient local culture currently growing ESBL Klebsiella as well as VRE and Ach romobacter 4-patient is afebrile, white count has normalized p patient is scheduled for left wewii-bgr-dvdg amputation this afternoon continue with the daptomycin and meropenem preoperatively Dictation was produced using [employer] dictation software. please excuse any grammatical, word or spelling errors. Time with Patient: Less than 30
--- NOTE | 2024-01-03 16:18 | P.PN ---
Subjective Progress Note Date: 01/03/24 Principal diagnosis: Reason for follow-up is left BKA stump wound infection Patient is a 58-year-old male with a past medical history significant for COPD DVT right lower extremity in this patient dealing with the left foot gangrene cellulitis failing medical therapy and the patient is recently status post left below the knee amputation patient presented back to the hospital with left BKA surgical wound dehiscence and infection.Patient is status post left xxtyj-qth-kgxj amputation completed on 01/02/2024 On today's evaluation 01/03/2024,the patient denies any fever or any chills, patient is breathing comfortably on room air, the patient denies chest pain shortness of breath and no significant cough, patient denies abdominal pain, no nausea vomiting or diarrhea.patient pain to the left AKA site is currently controlled Patient white count is up to 18,000, creatinine is 2.5 Objective - Vital Signs Vital signs: Vital Signs Temp 97.9 F 01/03/24 14:00 Pulse 61 01/03/24 15:07 Resp 16 01/03/24 14:00 BP 126/63 01/03/24 15:07 Pulse Ox 90 L 01/03/24 14:00 FiO2 21 01/01/24 09:25 Intake & Output 01/02/24 01/03/24 01/03/24 18:59 06:59 18:59 Intake Total 877 Output Total 400 350 280 Balance 477 -350 -280 Weight 99.79 kg Intake: IV 600 Blood Product 277 Rc Pheresis As-3 Unit 277 [id number] Output: Urine 350 280 Estimated Blood Loss 400 Other: Voiding Method Urinal Urinal # Voids 1 - Exam GENERAL DESCRIPTION: Middle-aged male lying in bed in no distress RESPIRATORY SYSTEM: Unlabored breathing , decreased breath sounds at bases HEART: S1 S2 regular rate and rhythm , ABDOMEN: Soft , no tenderness EXTREMITIES: Left AKA stump is currently dressed - Labs CBC & Chem 7: 01/03/24 07:30 01/03/24 07:30 Labs: Abnormal Lab Results - Last 24 Hours (Table) 12/30/23 01/02/24 01/02/24 Range/Units 11:11 18:35 18:41 WBC 11.3 H (3.8-10.6) k/uL RBC 3.20 L (4.30-5.90) m/uL Hgb 8.5 L (13.0-17.5) gm/dL Hct 27.8 L (39.0-53.0) % MCHC 30.6 L (31.0-37.0) g/dL RDW 15.7 H (11.5-15.5) % Creatinine (0.6-1.5) mg/dL Est GFR (CKD-EPI) (>=60) BUN/Creatinine Ratio (12.00-20.00) Ratio Glucose (70-110) mg/dL Calcium (8.7-10.3) mg/dL Crossmatch See Detail See Detail 01/03/24 01/03/24 01/03/24 Range/Units 07:30 07:30 13:18 WBC 18.00 H (3.8-10.6) k/uL RBC 2.92 L (4.30-5.90) m/uL Hgb 7.9 L (13.0-17.5) gm/dL Hct 25.4 L (39.0-53.0) % MCHC 31.1 L (31.0-37.0) g/dL RDW 16.3 H (11.5-15.5) % Creatinine 2.5 H (0.6-1.5) mg/dL Est GFR (CKD-EPI) 29 L (>=60) BUN/Creatinine Ratio 10.76 L (12.00-20.00) Ratio Glucose 123 H (70-110) mg/dL Calcium 7.9 L (8.7-10.3) mg/dL Crossmatch See Detail Assessment and Plan (1) Infection due to ESBL-producing Klebsiella pneumoniae Current Visit: Yes Status: Acute Code(s): A49.8 - OTHER BACTERIAL INFECTIONS OF UNSPECIFIED SITE; Z16.12 - EXTENDED SPECTRUM BETA LACTAMASE (ESBL) RESISTANCE SNOMED Code(s): 623199756 (2) Deep incisional surgical site infection Current Visit: Yes Status: Acute Code(s): T81.42XA - INFCT FOL A PROCEDURE, DEEP INCISIONAL SURGICAL SITE, INIT SNOMED Code(s): 449159518 (3) Cellulitis of left leg Current Visit: No Status: Acute Code(s): L03.116 - CELLULITIS OF LEFT LOWER LIMB SNOMED Code(s): 55936164529755070 Plan: 1patient presented to hospital with left BKA stump incision dehiscence cellulitis will need to cover for the resistant gram-positive as well as gram- negative keeping in mind recent multiple admission to the hospital 2-patient with renal sufficiency high risk of nephrotoxicity from vancomycin 3-patient local culture currently growing ESBL Klebsiella as well as VRE and Achromobacter 4-patient is s/p left vtbcs-ftw-tgnu amputation completed on 01/02/2024 5-patient noticed to have elevated white count today questionable reactive postsurgery we will repeat a CBC with a.m. lab, and continue with the daptomycin and meropenem preoperatively Dictation was produced using [employer] dictation software. please excuse any grammatical, word or spelling errors. Time with Patient: Less than 30
[2024-01-03] MEDS: MEROPENEM 1 GM in SODIUM CHLORIDE 0.9% 100 ML IVPB SCH ×2 (20:29→22:52)
--- NOTE | 2024-01-04 00:32 | PN ---
PROGRESS NOTE DATE OF SERVICE: 01/03/2024 CHIEF COMPLAINT: Infection at surgical site. HISTORY OF PRESENT ILLNESS: Surgical service is following in regard to patient's anemia. The patient has had no blood in his stools. Denies any black stools. He is status post left bacvx-myt-ynqf amputation with Dr. Stearns. Hemoglobin is stable at 7.9. PHYSICAL EXAMINATION: Abdomen is soft, nontender, nondistended. ASSESSMENT: Normocytic anemia. PLAN: The patient has declined EGD during this admission. Recommend EGD outpatient when patient is medically stable. MMODL / IJN: [id number] /
[2024-01-04 10:45] LABS: BUN/Creat Ratio 11.08 Ratio (12.00-20.00); Blood Urea Nitrogen 27.7 mg/dL (9.0-27.0); Glucose 83 mg/dL (70-110)
[2024-01-04 10:46] LABS: ALT 14 U/L (10-49); AST 24 U/L (14-35); Albumin 2.1 g/dL (3.8-4.9); Albumin/Globulin Ratio 0.78 Ratio (1.60-3.17); Alkaline Phosphatase 100 U/L (41-126); Calcium 7.6 mg/dL (8.7-10.3); Carbon Dioxide 26.8 mmol/L (21.6-31.8); Chloride 102 mmol/L (96-109); Globulin 2.7 g/dL (1.6-3.3); Potassium 4.7 mmol/L (3.5-5.5); Sodium 138 mmol/L (135-145); Total Bilirubin <0.2 mg/dL (0.3-1.2); Total Protein 4.8 g/dL (6.2-8.2)
[2024-01-04 10:52] LABS: Basophils # (A) 0.08 X 10*3/uL (0.00-0.10); Basophils % (A) 0.5 %; Eosinophils # (A) 0.73 X 10*3/uL (0.04-0.35); HCT 21.8 % (39.6-50.0); HGB 6.5 g/dL (13.0-17.0); Lymphocytes # (A) 1.82 X 10*3/uL (0.90-5.00); Lymphocytes % (A) 12.4 %; MCH 26.5 pg (27.0-32.0); MCHC 29.8 g/dL (32.0-37.0); Mean Platelet Volume 9.9 FL (9.5-12.2); Monocytes # (A) 0.85 X 10*3/uL (0.20-1.00); Monocytes % (A) 5.8 %; NRBC Per 100 WBC 0 X 10*3/uL (0.00-0.01); Neutrophils # (A) 11.09 X 10*3/uL (1.80-7.70); Neutrophils % (A) 75.4 %; Platelet Count 335 X 10*3/uL (140-440); RBC 2.45 X 10*6/uL (4.40-5.60); RDW 16.6 % (11.5-14.5)
--- NOTE | 2024-01-04 11:55 | P.PN ---
Subjective Progress Note Date: 01/04/24 Principal diagnosis: Recent left BKA She is seen and examined today as a follow-up. He was resting comfortably. States he has been having more pain today which she states is at his knee likely phantom pain. He was not given his blood as ordered yesterday. Today's hemoglobin 6.5 will plan for 1 unit PRBC transfusion today. Morning labs currently pending. He has stump sales engagement manager and rigid dressing in place. He has been afebrile. No acute changes. Objective - Vital Signs Vital signs: Vital Signs Temp 97.9 F 01/04/24 07:50 Pulse 69 01/04/24 07:50 Resp 17 01/04/24 08:01 BP 101/47 01/04/24 07:50 Pulse Ox 93 L 01/04/24 07:50 FiO2 21 01/01/24 09:25 Intake & Output 01/03/24 01/04/24 01/04/24 18:59 06:59 18:59 Output Total 280 Balance -280 Output: Urine 280 Other: Voiding Method Urinal Urinal # Voids 3 - Exam General appearance: The patient is alert, oriented, appears in no acute distress. HET: Head is normocephalic and atraumatic. Neck: Supple. Abdomen: Soft, nontender, nondistended. Extremities: Left ychkk-jhz-aums amputation site well-approximated with danna, normal skin color, warm to the touch, minimal serosanguineous drainage. Redressed with ABD pad, Kerlix and stump sales engagement manager. Neurological and: No focal deficits. Alert and oriented. - Labs CBC & Chem 7: 01/04/24 06:17 01/04/24 06:17 Labs: Abnormal Lab Results - Last 24 Hours (Table) 01/02/24 01/03/24 01/03/24 Range/Units 18:41 07:30 07:30 WBC 18.00 H (4.50-10.00) X 10*3/uL RBC 2.92 L (4.40-5.60) X 10*6/uL Hgb 7.9 L (13.0-17.0) g/dL Hct 25.4 L (39.6-50.0) % MCHC 31.1 L (32.0-37.0) g/dL RDW 16.3 H (11.5-14.5) % Creatinine 2.5 H (0.6-1.5) mg/dL Est GFR (CKD-EPI) 29 L (>=60) BUN/Creatinine Ratio 10.76 L (12.00-20.00) Ratio Glucose 123 H (70-110) mg/dL Calcium 7.9 L (8.7-10.3) mg/dL Crossmatch See Detail 01/03/24 Range/Units 13:18 WBC (4.50-10.00) X 10*3/uL RBC (4.40-5.60) X 10*6/uL Hgb (13.0-17.0) g/dL Hct (39.6-50.0) % MCHC (32.0-37.0) g/dL RDW (11.5-14.5) % Creatinine (0.6-1.5) mg/dL Est GFR (CKD-EPI) (>=60) BUN/Creatinine Ratio (12.00-20.00) Ratio Glucose (70-110) mg/dL Calcium (8.7-10.3) mg/dL Crossmatch See Detail Assessment and Plan Assessment: 1. Postop day #2 left oncqi-rrd-cwmo amputation 2. Gangrene left foot with recent left below the knee amputation nonhealing 3. Nonhealing left lower extremity wound, previous bypass wound dehiscence 4. Wound cultures positive for Klebsiella pneumoniae, Enterococcus faecium VRE, Achromobacter xylos/denitrif 5. Peripheral arterial disease with critical limb ischemia left lower extremity status post left common femoral endarterectomy and femoral to below-knee popliteal bypass 6. Chronic anemia Plan: 1. Daily dressing change with 4 x 4, Kerlix then apply stump sales engagement manager and rigid dressing 2. Antibiotics per recommendations from infectious disease 3. May resume anticoagulation 4. 1 unit red blood cells ordered 5. Daily CBC 6. Comfort prosthetics consulted for stump sales engagement manager and rigid dressing 7. Rest of medical management per primary medical team 8. Consult to physical therapy 9. Recommend subacute rehab on discharge 10. Patient is stable from a vascular surgical standpoint for discharge. He is instructed to follow-up with Dr. Payne in 2 weeks Thank you for this consultation, we will continue to follow. The impression and plan of care has been dictated as directed. Dr. Stearns I performed a history and examination of this patient, discussed the same with the dictator. I agree with the dictator's note ,documented as a scribe. Any additional findings or plans will be noted.
[2024-01-04] MEDS: GABAPENTIN 300 MG CAP PO SCH (15:23)
--- NOTE | 2024-01-04 16:12 | P.PN ---
Subjective Progress Note Date: 01/04/24 Principal diagnosis: Reason for follow-up is left BKA stump wound infection Patient is a 58-year-old male with a past medical history significant for COPD DVT right lower extremity in this patient dealing with the left foot gangrene cellulitis failing medical therapy and the patient is recently status post left below the knee amputation patient presented back to the hospital with left BKA surgical wound dehiscence and infection.Patient is status post left soyye-etb-oumw amputation completed on 01/02/2024 On today's evaluation 01/04/2024,the patient remains to be afebrile, patient is on room air not requiring supplemental oxygen and denies any shortness of breath no chest pain or cough.Patient denies having any nausea or vomiting, no abdominal pain and no diarrhea has been reported was complaining of some discomfort to the left AKA stump this morning patient was noticed a drop in hemoglobin is getting a blood transfusion. Patient white count is 14.70 hemoglobin 6.5 creatinine is 2.5 Objective - Vital Signs Vital signs: Vital Signs Temp 98.3 F 01/04/24 13:02 Pulse 78 01/04/24 13:02 Resp 16 01/04/24 13:02 BP 125/49 01/04/24 13:02 Pulse Ox 94 L 01/04/24 13:02 FiO2 21 01/01/24 09:25 Intake & Output 01/03/24 01/04/24 01/04/24 18:59 06:59 18:59 Intake Total 283 Output Total 280 Balance -280 283 Intake: Blood Product 283 Rc Pheresis As-3 Unit 283 [id number] Output: Urine 280 Other: Voiding Method Urinal Urinal # Voids 3 - Exam GENERAL DESCRIPTION: Middle-aged male lying in bed in no distress RESPIRATORY SYSTEM: Unlabored breathing , decreased breath sounds at bases HEART: S1 S2 regular rate and rhythm , ABDOMEN: Soft , no tenderness EXTREMITIES: Left AKA stump is currently dressed - Labs CBC & Chem 7: 01/04/24 06:17 01/04/24 06:17 Labs: Abnormal Lab Results - Last 24 Hours (Table) 01/03/24 01/04/24 01/04/24 Range/Units 13:18 06:17 06:17 WBC 14.70 H (4.50-10.00) X 10*3/uL RBC 2.45 L (4.40-5.60) X 10*6/uL Hgb 6.5 A* (13.0-17.0) g/dL Hct 21.8 L (39.6-50.0) % MCH 26.5 L (27.0-32.0) pg MCHC 29.8 L (32.0-37.0) g/dL RDW 16.6 H (11.5-14.5) % Immature Gran # 0.13 H (0.00-0.04) X 10*3/uL Neutrophils # 11.09 H (1.80-7.70) X 10*3/uL Eosinophils # 0.73 H (0.04-0.35) X 10*3/uL BUN 27.7 H (9.0-27.0) mg/dL Creatinine 2.5 H (0.6-1.5) mg/dL Est GFR (CKD-EPI) 29 L (>=60) BUN/Creatinine Ratio 11.08 L (12.00-20.00) Ratio Calcium 7.6 L (8.7-10.3) mg/dL Total Bilirubin <0.2 L (0.3-1.2) mg/dL C-Reactive Protein 8.70 H (0.00-0.80) mg/dL Total Protein 4.8 L (6.2-8.2) g/dL Albumin 2.1 L (3.8-4.9) g/dL Albumin/Globulin Ratio 0.78 L (1.60-3.17) Ratio Crossmatch See Detail Assessment and Plan (1) Infection due to ESBL-producing Klebsiella pneumoniae Current Visit: Yes Status: Acute Code(s): A49.8 - OTHER BACTERIAL INFECTIONS OF UNSPECIFIED SITE; Z16.12 - EXTENDED SPECTRUM BETA LACTAMASE (ESBL) RESISTANCE SNOMED Code(s): 970495999 (2) Deep incisional surgical site infection Current Visit: Yes Status: Acute Code(s): T81.42XA - INFCT FOL A PROCEDURE, DEEP INCISIONAL SURGICAL SITE, INIT SNOMED Code(s): 065857926 (3) Cellulitis of left leg Current Visit: No Status: Acute Code(s): L03.116 - CELLULITIS OF LEFT LOWER LIMB SNOMED Code(s): 92082951887233655 Plan: 1patient presented to hospital with left BKA stump incision dehiscence cellulitis will need to cover for the resistant gram-positive as well as gram- negative keeping in mind recent multiple admission to the hospital 2-patient with renal sufficiency high risk of nephrotoxicity from vancomycin 3-patient local culture currently growing ESBL Klebsiella as well as VRE and Achromobacter 4-patient is s/p left kliug-lqj-hybb amputation completed on 01/02/2024 5-patient noticed to have elevated white count today questionable reactive postsurgery white count is trending down, patient will continue with the daptomycin and meropenem and monitor clinical course closely Dictation was produced using [employer] dictation software. please excuse any grammatical, word or spelling errors. Time with Patient: Less than 30
--- NOTE | 2024-01-04 17:41 | P.PN ---
Subjective patient is a 58-year-old gentleman with past medical history significant for peripheral disease, COPD who recently underwent BKA secondary to gangrene of left lower extremity who presented to the ER because of left BKA site not healing well. Stated that he has been noticing that the wound is not healing well, noticed discharge which looked like pus coming from the wound. There was no complaint of fever or chills. Patient is complaining of increasing pain at the stump site. There is no complaint of nausea vomiting. Denies any abdominal pain. Because of the symptoms, patient came to the ER Initial lab work done in the ER showed WBC 11.9, hemoglobin 8.7, platelet count 411, sodium 137, potassium 4.2, BUN 33, creatinine 2.87, lactate 1.2, alk phos 147 EKG done in the ER showed heart rate of 54 , no ST segment elevation or depression seen, no T-wave inversions seen. X-ray of left knee done showed status BKA, distal cortical irregularity at fibular amputation site, concerning for osteo Patient admitted to internal medicine service 12/25. Patient seen examined. Sitting upright in the bed. No acute issues overnight 12/26. Patient seen and examined. Antibiotics changed to daptomycin and meropenem. States he feels better. Denies any fever or chills. Denies any worsening pain in his left stump 12/27. Patient seen and examined. Left BKA stump site has purulent drainage, vascular surgery has evaluated patient, planning surgical intervention on Sunday if there is no clinical improvement /. Patient seen and examined. States he feels that his left BKA wound has improved, stated there is less drainage. 12/29. Patient seen and examined. Hemoglobin this morning 6.9, will order 1 unit of packed red blood cell 12/31/2023 Patient left BKA stump with dressing in place. Pain controlled Patient sitting at bed edge eating, looks comfortable, no specific complaint Plan for left AKA by vascular surgery team on Sunday01/01/2024 Patient is planned to undergo left AKA with vascular surgery team tomorrow Patient currently is fully awake and oriented at baseline, he denies chest pain or dyspnea, no other complaints. His main complaint is pain at the left BKA stump which is ongoing since admission. Patient is hemodynamically stable and labs and vitals reviewed Patient had recent stress test which was negative for reversible ischemia on 12/13/2023. Patient cleared by associate brand manager for procedure at that time Also patient recently had BKA during this hospitalization and he tolerated that as well regarding his breathing and kidney disease, his creatinine is stable around 2.5-3. Also his hemoglobin came down from 8.6 down to 7.2 today. Since is given for AKA surgery tomorrow we would recommend at least 1 unit of blood transfusion, patient informed and he agrees. He is currently on an aspirin 81 mg no other anticoagulation. Also we will consult general surgery for his anemia. Patient states last colonoscopy was [address] Anderson. However there is no GI coverage in this facility during this week. We will do occult blood in the stool test and anemia workup 01/02/2024 Patient is awake and alert, sitting up at bedside, smiling and joking. He looks relaxed. Denies chest pain or dyspnea. His breathing is okay and there is no evidence of wheezing or significant crepitation. Abdomen soft. His pain of the left BKA stump is controlled. He had 1 bowel movement which was normal for him He got 1 unit of blood transfusion yesterday and hemoglobin went up today 8.6 Anemia workup showing anemia of chronic disease/inflammation. Surgery was consulted and were thinking of colonoscopy on however patient is not really encouraged about doing colonoscopy but he wants his left BKA stump addressed more importantly for him. Xarelto remains on hold for low hemoglobin. 01/03/2024 Patient is s/p left AKA yesterday. Today's postop day #1 He is awake and mentation at baseline, he is pleasant and relaxed Pain controlled no significant leakage and dressing is in place No chest pain no other new complaint 01/04/2024 Patient is looking comfortable lying in bed. No new complaints No chest pain or dyspnea Stump dressing in place with no active bleeding His hemoglobin was 6.5 today and WBC slightly up most likely secondary to his surgery. He is getting 1 unit of blood transfusion Vascular surgery already cleared him for discharge to follow-up with vascular clinic in 2 weeks Plan for patient to be discharged to rehab, possibly on Sunday Objective - Vital Signs Vital signs: Vital Signs Temp 98.3 F 01/04/24 13:02 Pulse 72 01/04/24 13:19 Resp 15 01/04/24 13:19 BP 125/74 01/04/24 13:19 Pulse Ox 98 01/04/24 13:19 FiO2 21 01/01/24 09:25 Intake & Output 01/03/24 01/04/24 01/04/24 18:59 06:59 18:59 Intake Total 283 Output Total 280 400 Balance -280 -117 Intake: Blood Product 283 Rc Pheresis As-3 Unit 283 [id number] Output: Urine 280 400 Other: Voiding Method Urinal Urinal # Voids 3 - Exam GENERAL: The patient is alert and oriented x3, not in any acute distress. Well developed, well nourished. HEENT: Pupils are round and equally reacting to light. EOMI. No scleral icterus. No conjunctival pallor. Normocephalic, atraumatic. No pharyngeal erythema. No thyromegaly. CARDIOVASCULAR: S1 and S2 present. No murmurs, rubs, or gallops. PULMONARY: Chest is clear to auscultation, no wheezing or crackles. ABDOMEN: Soft, nontender, nondistended, normoactive bowel sounds. No palpable organomegaly. MUSCULOSKELETAL: Left BKA seen, purulent discharge seen. EXTREMITIES: No cyanosis, clubbing, or pedal edema. NEUROLOGICAL: Gross neurological examination did not reveal any focal deficits. SKIN: No rashes. - Labs CBC & Chem 7: 01/04/24 06:17 01/04/24 06:17 Labs: Abnormal Lab Results - Last 24 Hours (Table) 01/03/24 01/04/24 01/04/24 Range/Units 13:18 06:17 06:17 WBC 14.70 H (4.50-10.00) X 10*3/uL RBC 2.45 L (4.40-5.60) X 10*6/uL Hgb 6.5 A* (13.0-17.0) g/dL Hct 21.8 L (39.6-50.0) % MCH 26.5 L (27.0-32.0) pg MCHC 29.8 L (32.0-37.0) g/dL RDW 16.6 H (11.5-14.5) % Immature Gran # 0.13 H (0.00-0.04) X 10*3/uL Neutrophils # 11.09 H (1.80-7.70) X 10*3/uL Eosinophils # 0.73 H (0.04-0.35) X 10*3/uL BUN 27.7 H (9.0-27.0) mg/dL Creatinine 2.5 H (0.6-1.5) mg/dL Est GFR (CKD-EPI) 29 L (>=60) BUN/Creatinine Ratio 11.08 L (12.00-20.00) Ratio Calcium 7.6 L (8.7-10.3) mg/dL Total Bilirubin <0.2 L (0.3-1.2) mg/dL C-Reactive Protein 8.70 H (0.00-0.80) mg/dL Total Protein 4.8 L (6.2-8.2) g/dL Albumin 2.1 L (3.8-4.9) g/dL Albumin/Globulin Ratio 0.78 L (1.60-3.17) Ratio Crossmatch See Detail Assessment and Plan Assessment: Surgical site infection of left BKA. Plan to undergo left AKA on 01/01 Recent gangrene of left lower extremity leading to BKA. Recurrent normocytic hypochromic anemia. S/p 2 minutes of blood transfusion. Surgery team on the case History of peripheral vascular disease with chronic critical left lower extremity ischemia s/p left common femoral and endarterectomy and left femoral- popliteal bypass Left sided renal mass CKD stage IV COPD Nicotine dependence Anxiety and depression Plan: Patient is planned to undergo a left AKA today 01/01. Patient had recent ne gative stress test. He tolerated the procedure during this hospitalization with no respiratory or renal complication. From medical perspective patient is still at risk from AKA surgery however there is no absolute contraindication from medical perspective and he can proceed with surgery. Consult general surgery team for his anemia, general surgery plan for colonoscopy on . However patient is not sure if he wants to do this Xarelto 2.5 mg twice daily which is home medication was placed on hold for the anemia Follow-up on blood culture Follow-up on wound cultures Continue aspirin, Toprol-XL continue aspirin 81 mg Continue wound care Continue daptomycin and meropenem Vascular surgery following, planning surgical intervention on 12/31 ID following Labs and medication were reviewed.. Continue same treatment. Continue with symptomatic treatment. Resume home medication. Monitor labs and vitals. DVT and GI prophylaxis. Further recommendations as per clinical course of the astrid wilson
[2024-01-04 18:35] LABS: HCT 26.7 % (39.0-53.0); HGB 8.5 gm/dL (13.0-17.5); Hypochromasia Moderate; MCH 27.9 pg (25.0-35.0); MCV 87.3 fL (80.0-100.0); Mean Platelet Volume 8.2; Platelet Count 367 k/uL (150-450); Poikilocytosis Slight; RBC 3.06 m/uL (4.30-5.90); RDW 15.7 % (11.5-15.5); WBC 16.2 k/uL (3.8-10.6)
--- NOTE | 2024-01-05 15:04 | P.PN ---
Subjective Progress Note Date: 01/05/24 Principal diagnosis: Reason for follow-up is left BKA stump wound infection Patient is a 58-year-old male with a past medical history significant for COPD DVT right lower extremity in this patient dealing with the left foot gangrene cellulitis failing medical therapy and the patient is recently status post left below the knee amputation patient presented back to the hospital with left BKA surgical wound dehiscence and infection.Patient is status post left roenj-tyx-ltft amputation completed on 01/02/2024 On today's evaluation 01/05/2024, the patient continues to be afebrile, the patient is on room air and breathing comfortably, the Pt denies having any chest pain or cough, the patient denies having any abdominal pain no vomiting or any diarrhea and pain to the left AKA stump is currently controlled. No new lab has been obtained today Objective - Vital Signs Vital signs: Vital Signs Temp 99.4 F 01/05/24 14:05 Pulse 71 01/05/24 14:05 Resp 18 01/05/24 14:05 BP 101/58 01/05/24 14:05 Pulse Ox 93 L 01/05/24 14:05 FiO2 21 01/01/24 09:25 Intake & Output 01/04/24 01/05/24 01/05/24 18:59 06:59 18:59 Intake Total 283 200 Output Total 850 800 Balance -567 -800 200 Intake: Oral 200 Blood Product 283 Rc Pheresis As-3 Unit 283 [id number] Output: Urine 850 800 Other: Voiding Method Urinal Urinal Urinal - Exam GENERAL DESCRIPTION: Middle-aged male lying in bed in no distress RESPIRATORY SYSTEM: Unlabored breathing , decreased breath sounds at bases HEART: S1 S2 regular rate and rhythm , ABDOMEN: Soft , no tenderness EXTREMITIES: Left AKA stump is currently dressed - Labs CBC & Chem 7: 01/04/24 17:57 01/04/24 06:17 Labs: Abnormal Lab Results - Last 24 Hours (Table) 01/04/24 Range/Units 17:57 WBC 16.2 H (3.8-10.6) k/uL RBC 3.06 L (4.30-5.90) m/uL Hgb 8.5 L (13.0-17.5) gm/dL Hct 26.7 L (39.0-53.0) % RDW 15.7 H (11.5-15.5) % Assessment and Plan (1) Infection due to ESBL-producing Klebsiella pneumoniae Current Visit: Yes Status: Acute Code(s): A49.8 - OTHER BACTERIAL INFECTIONS OF UNSPECIFIED SITE; Z16.12 - EXTENDED SPECTRUM BETA LACTAMASE (ESBL) RESISTANCE SNOMED Code(s): 548525264 (2) Deep incisional surgical site infection Current Visit: Yes Status: Acute Code(s): T81.42XA - INFCT FOL A PROCEDURE, DEEP INCISIONAL SURGICAL SITE, INIT SNOMED Code(s): 448430719 (3) Cellulitis of left leg Current Visit: No Status: Acute Code(s): L03.116 - CELLULITIS OF LEFT LOWER LIMB SNOMED Code(s): 68138071472831639 Plan: 1patient presented to hospital with left BKA stump incision dehiscence cellulitis will need to cover for the resistant gram-positive as well as gram- negative keeping in mind recent multiple admission to the hospital 2-patient with renal sufficiency high risk of nephrotoxicity from vancomycin 3-patient local culture currently growing ESBL Klebsiella as well as VRE and Achromobacter 4-patient is s/p left ivuel-jpj-lesw amputation completed on 01/02/2024 5-patient noticed to have elevated white count postsurgery possible reactive white count was trending down as of yesterday and will monitor closely continue with the daptomycin and meropenem question concern answered repeat a CBC with a.m. lab Dictation was produced using [employer] dictation software. please excuse any grammatical, word or spelling errors. Time with Patient: Less than 30
--- NOTE | 2024-01-05 20:38 | P.PN ---
Subjective patient is a 58-year-old gentleman with past medical history significant for peripheral disease, COPD who recently underwent BKA secondary to gangrene of left lower extremity who presented to the ER because of left BKA site not healing well. Stated that he has been noticing that the wound is not healing well, noticed discharge which looked like pus coming from the wound. There was no complaint of fever or chills. Patient is complaining of increasing pain at the stump site. There is no complaint of nausea vomiting. Denies any abdominal pain. Because of the symptoms, patient came to the ER Initial lab work done in the ER showed WBC 11.9, hemoglobin 8.7, platelet count 411, sodium 137, potassium 4.2, BUN 33, creatinine 2.87, lactate 1.2, alk phos 147 EKG done in the ER showed heart rate of 54 , no ST segment elevation or depression seen, no T-wave inversions seen. X-ray of left knee done showed status BKA, distal cortical irregularity at fibular amputation site, concerning for osteo Patient admitted to internal medicine service 12/25. Patient seen examined. Sitting upright in the bed. No acute issues overnight 12/26. Patient seen and examined. Antibiotics changed to daptomycin and meropenem. States he feels better. Denies any fever or chills. Denies any worsening pain in his left stump 12/27. Patient seen and examined. Left BKA stump site has purulent drainage, vascular surgery has evaluated patient, planning surgical intervention on Sunday if there is no clinical improvement /. Patient seen and examined. States he feels that his left BKA wound has improved, stated there is less drainage. 12/29. Patient seen and examined. Hemoglobin this morning 6.9, will order 1 unit of packed red blood cell 12/31/2023 Patient left BKA stump with dressing in place. Pain controlled Patient sitting at bed edge eating, looks comfortable, no specific complaint Plan for left AKA by vascular surgery team on Sunday01/01/2024 Patient is planned to undergo left AKA with vascular surgery team tomorrow Patient currently is fully awake and oriented at baseline, he denies chest pain or dyspnea, no other complaints. His main complaint is pain at the left BKA stump which is ongoing since admission. Patient is hemodynamically stable and labs and vitals reviewed Patient had recent stress test which was negative for reversible ischemia on 12/13/2023. Patient cleared by coating manager for procedure at that time Also patient recently had BKA during this hospitalization and he tolerated that as well regarding his breathing and kidney disease, his creatinine is stable around 2.5-3. Also his hemoglobin came down from 8.6 down to 7.2 today. Since is given for AKA surgery tomorrow we would recommend at least 1 unit of blood transfusion, patient informed and he agrees. He is currently on an aspirin 81 mg no other anticoagulation. Also we will consult general surgery for his anemia. Patient states last colonoscopy was [address] Anderson. However there is no GI coverage in this facility during this week. We will do occult blood in the stool test and anemia workup 01/02/2024 Patient is awake and alert, sitting up at bedside, smiling and joking. He looks relaxed. Denies chest pain or dyspnea. His breathing is okay and there is no evidence of wheezing or significant crepitation. Abdomen soft. His pain of the left BKA stump is controlled. He had 1 bowel movement which was normal for him He got 1 unit of blood transfusion yesterday and hemoglobin went up today 8.6 Anemia workup showing anemia of chronic disease/inflammation. Surgery was consulted and were thinking of colonoscopy on however patient is not really encouraged about doing colonoscopy but he wants his left BKA stump addressed more importantly for him. Xarelto remains on hold for low hemoglobin. 01/03/2024 Patient is s/p left AKA yesterday. Today's postop day #1 He is awake and mentation at baseline, he is pleasant and relaxed Pain controlled no significant leakage and dressing is in place No chest pain no other new complaint 01/04/2024 Patient is looking comfortable lying in bed. No new complaints No chest pain or dyspnea Stump dressing in place with no active bleeding His hemoglobin was 6.5 today and WBC slightly up most likely secondary to his surgery. He is getting 1 unit of blood transfusion Vascular surgery already cleared him for discharge to follow-up with vascular clinic in 2 weeks Plan for patient to be discharged to rehab, possibly on Sunday01/05/2024 Patient is open date, mentation at baseline No specific complaint Left AKA stump is healing with no bleeding or dehiscence of wounds. Hemoglobin 8.5 after 1 unit of blood transfusion. Remains on daptomycin and meropenem Objective - Vital Signs Vital signs: Vital Signs Temp 99.4 F 01/05/24 14:05 Pulse 71 01/05/24 14:05 Resp 18 01/05/24 14:05 BP 101/58 01/05/24 14:05 Pulse Ox 93 L 01/05/24 14:05 FiO2 21 01/01/24 09:25 Intake & Output 01/05/24 01/05/24 01/06/24 06:59 18:59 06:59 Intake Total 200 Output Total 800 250 Balance -800 -50 Intake: Oral 200 Output: Urine 800 250 Other: Voiding Method Urinal Urinal - Exam GENERAL: The patient is alert and oriented x3, not in any acute distress. Well developed, well nourished. HEENT: Pupils are round and equally reacting to light. EOMI. No scleral icterus. No conjunctival pallor. Normocephalic, atraumatic. No pharyngeal erythema. No thyromegaly. CARDIOVASCULAR: S1 and S2 present. No murmurs, rubs, or gallops. PULMONARY: Chest is clear to auscultation, no wheezing or crackles. ABDOMEN: Soft, nontender, nondistended, normoactive bowel sounds. No palpable organomegaly. MUSCULOSKELETAL: Left BKA seen, purulent discharge seen. EXTREMITIES: No cyanosis, clubbing, or pedal edema. NEUROLOGICAL: Gross neurological examination did not reveal any focal deficits. SKIN: No rashes. - Labs CBC & Chem 7: 01/04/24 17:57 01/04/24 06:17 Assessment and Plan Assessment: Surgical site infection of left BKA. Plan to undergo left AKA on 01/01 Recent gangrene of left lower extremity leading to BKA. Recurrent normocytic hypochromic anemia. S/p 2 minutes of blood transfusion. Surgery team on the case History of peripheral vascular disease with chronic critical left lower extremity ischemia s/p left common femoral and endarterectomy and left femoral- popliteal bypass Left sided renal mass CKD stage IV COPD Nicotine dependence Anxiety and depression Plan: Patient is planned to undergo a left AKA today 01/01. Patient had recent negative stress test. He tolerated the procedure during this hospitalization with no respiratory or renal complication. From medical perspective patient is still at risk from AKA surgery however there is no absolute contraindication from medical perspective and he can proceed with surgery. Consult general surgery team for his anemia, general surgery plan for colono scopy on . However patient is not sure if he wants to do this Xarelto 2.5 mg twice daily which is home medication was placed on hold for the anemia Follow-up on blood culture Follow-up on wound cultures Continue aspirin, Toprol-XL continue aspirin 81 mg Continue wound care Continue daptomycin and meropenem Vascular surgery following, planning surgical intervention on 12/31 following Labs and medication were reviewed.. Continue same treatment. Continue with symptomatic treatment. Resume home medication. Monitor labs and vitals. DVT and GI prophylaxis. Further recommendations as per clinical course of the patient
[2024-01-06 09:27] LABS: Basophils # (A) 0.06 X 10*3/uL (0.00-0.10); Basophils % (A) 0.5 %; Eosinophils # (A) 1.96 X 10*3/uL (0.04-0.35); Eosinophils % (A) 16.2 %; HCT 20.8 % (39.6-50.0); HGB 6.3 g/dL (13.0-17.0); Lymphocytes # (A) 1.19 X 10*3/uL (0.90-5.00); Lymphocytes % (A) 9.9 %; MCH 26.5 pg (27.0-32.0); MCHC 30.3 g/dL (32.0-37.0); MCV 87.4 FL (80.0-97.0); Mean Platelet Volume 9.5 FL (9.5-12.2); Monocytes # (A) 0.89 X 10*3/uL (0.20-1.00); Monocytes % (A) 7.4 %; NRBC Per 100 WBC 0 X 10*3/uL (0.00-0.01); Neutrophils # (A) 7.89 X 10*3/uL (1.80-7.70); Neutrophils % (A) 65.3 %; Platelet Count 330 X 10*3/uL (140-440); RBC 2.38 X 10*6/uL (4.40-5.60); RDW 16.7 % (11.5-14.5); WBC 12.08 X 10*3/uL (4.50-10.00)
[2024-01-06 10:57] LABS: Blood Urea Nitrogen 24.2 mg/dL (9.0-27.0); Chloride 99 mmol/L (96-109); Glucose 86 mg/dL (70-110); Potassium 4.1 mmol/L (3.5-5.5); Sodium 134 mmol/L (135-145)
[2024-01-06 10:58] LABS: ALT 12 U/L (10-49); AST 24 U/L (14-35); Albumin 2.3 g/dL (3.8-4.9); Alkaline Phosphatase 106 U/L (41-126); Calcium 7.6 mg/dL (8.7-10.3); Carbon Dioxide 24.5 mmol/L (21.6-31.8); Globulin 2.1 g/dL (1.6-3.3); Total Bilirubin 0.2 mg/dL (0.3-1.2); Total Protein 4.4 g/dL (6.2-8.2)
--- NOTE | 2024-01-06 16:00 | P.PN ---
Subjective Progress Note Date: 01/06/24 Principal diagnosis: Reason for follow-up is left BKA stump wound infection Patient is a 58-year-old male with a past medical history significant for COPD DVT right lower extremity in this patient dealing with the left foot gangrene cellulitis failing medical therapy and the patient is recently status post left below the knee amputation patient presented back to the hospital with left BKA surgical wound dehiscence and infection.Patient is status post left [id number] amputation completed on 01/02/2024 On today's evaluation that is 01/06/2024, Patient is afebrile patient is currently on room air and denies having any shortness of breath, the patient denies any chest pain or cough, the patient denies any nausea vomiting did not have any abdominal pain and no diarrhea for the has no bowel movements for the last few days denies any worsening pain to the left AKA stump. Patient white count is 12.08 creatinine is 2.0 Objective - Vital Signs Vital signs: Vital Signs Temp 98.8 F 01/06/24 14:22 Pulse 62 01/06/24 14:22 Resp 18 01/06/24 14:22 BP 113/56 01/06/24 14:22 Pulse Ox 96 01/06/24 14:22 FiO2 21 01/01/24 09:25 Intake & Output 01/05/24 01/06/24 01/06/24 18:59 06:59 18:59 Intake Total 200 310 Output Total 250 Balance -50 310 Intake: Oral 200 Blood Product 310 Rc As-1 Unit 310 [id number] Output: Urine 250 Other: Voiding Method Urinal Urinal Urinal - Exam GENERAL DESCRIPTION: Middle-aged male lying in bed in no distress RESPIRATORY SYSTEM: Unlabored breathing , decreased breath sounds at bases HEART: S1 S2 regular rate and rhythm , ABDOMEN: Soft , no tenderness EXTREMITIES: Left AKA stump is currently dressed - Labs CBC & Chem 7: 01/06/24 04:52 01/06/24 04:52 Labs: Abnormal Lab Results - Last 24 Hours (Table) 01/03/24 01/06/24 01/06/24 Range/Units 13:18 04:52 04:52 WBC 12.08 H (4.50-10.00) X 10*3/uL RBC 2.38 L (4.40-5.60) X 10*6/uL Hgb 6.3 A* (13.0-17.0) g/dL Hct 20.8 L (39.6-50.0) % MCH 26.5 L (27.0-32.0) pg MCHC 30.3 L (32.0-37.0) g/dL RDW 16.7 H (11.5-14.5) % Immature Gran # 0.09 H (0.00-0.04) X 10*3/uL Neutrophils # 7.89 H (1.80-7.70) X 10*3/uL Eosinophils # 1.96 H (0.04-0.35) X 10*3/uL Sodium 134 L (135-145) mmol/L Creatinine 2.0 H (0.6-1.5) mg/dL Est GFR (CKD-EPI) 38 L (>=60) Calcium 7.6 L (8.7-10.3) mg/dL Total Bilirubin 0.2 L (0.3-1.2) mg/dL C-Reactive Protein 16.10 H (0.00-0.80) mg/dL Total Protein 4.4 L (6.2-8.2) g/dL Albumin 2.3 L (3.8-4.9) g/dL Albumin/Globulin Ratio 1.10 L (1.60-3.17) Ratio Crossmatch See Detail Assessment and Plan (1) Infection due to ESBL-producing Klebsiella pneumoniae Current Visit: Yes Status: Acute Code(s): A49.8 - OTHER BACTERIAL INFECTIONS OF UNSPECIFIED SITE; Z16.12 - EXTENDED SPECTRUM BETA LACTAMASE (ESBL) RESISTANCE SNOMED Code(s): 582993064 (2) Deep incisional surgical site infection Current Visit: Yes Status: Acute Code(s): T81.42XA - INFCT FOL A PROCEDURE, DEEP INCISIONAL SURGICAL SITE, INIT SNOMED Code(s): 642124632 (3) Cellulitis of left leg Current Visit: No Status: Acute Code(s): L03.116 - CELLULITIS OF LEFT LOWER LIMB SNOMED Code(s): 27903899767210836 Plan: 1patient presented to hospital with left BKA stump incision dehiscence cellulitis will need to cover for the resistant gram-positive as well as gram- negative keeping in mind recent multiple admission to the hospital 2-patient with renal sufficiency high risk of nephrotoxicity from vancomycin 3-patient local culture currently growing ESBL Klebsiella as well as VRE and Achromobacter 4-patient is s/p left [id number] amputation completed on 01/02/2024 5-patient noticed to have elevated white count postsurgery possible reactive has a white count is trending down also noted to have drop in hemoglobin being monitored by admitting team for now continue daptomycin and meropenem and monitor clinical course closely Dictation was produced using [employer] dictation software. please excuse any grammatical, word or spelling errors. Time with Patient: Less than 30
--- NOTE | 2024-01-06 19:53 | P.PN ---
Subjective patient is a 58-year-old gentleman with past medical history significant for peripheral disease, COPD who recently underwent BKA secondary to gangrene of left lower extremity who presented to the ER because of left BKA site not healing well. Stated that he has been noticing that the wound is not healing well, noticed discharge which looked like pus coming from the wound. There was no complaint of fever or chills. Patient is complaining of increasing pain at the stump site. There is no complaint of nausea vomiting. Denies any abdominal pain. Because of the symptoms, patient came to the ER Initial lab work done in the ER showed WBC 11.9, hemoglobin 8.7, platelet count 411, sodium 137, potassium 4.2, BUN 33, creatinine 2.87, lactate 1.2, alk phos 147 EKG done in the ER showed heart rate of 54 , no ST segment elevation or depression seen, no T-wave inversions seen. X-ray of left knee done showed status BKA, distal cortical irregularity at fibular amputation site, concerning for osteo Patient admitted to internal medicine service 12/25. Patient seen examined. Sitting upright in the bed. No acute issues overnight 12/26. Patient seen and examined. Antibiotics changed to daptomycin and meropenem. States he feels better. Denies any fever or chills. Denies any worsening pain in his left stump 12/27. Patient seen and examined. Left BKA stump site has purulent drainage, vascular surgery has evaluated patient, planning surgical intervention on Sunday if there is no clinical improvement /. Patient seen and examined. States he feels that his left BKA wound has improved, stated there is less drainage. 12/29. Patient seen and examined. Hemoglobin this morning 6.9, will order 1 unit of packed red blood cell 12/31/2023 Patient left BKA stump with dressing in place. Pain controlled Patient sitting at bed edge eating, looks comfortable, no specific complaint Plan for left AKA by vascular surgery team on Sunday01/01/2024 Patient is planned to undergo left AKA with vascular surgery team tomorrow Patient currently is fully awake and oriented at baseline, he denies chest pain or dyspnea, no other complaints. His main complaint is pain at the left BKA stump which is ongoing since admission. Patient is hemodynamically stable and labs and vitals reviewed Patient had recent stress test which was negative for reversible ischemia on 12/13/2023. Patient cleared by regional economic liaison for procedure at that time Also patient recently had BKA during this hospitalization and he tolerated that as well regarding his breathing and kidney disease, his creatinine is stable around 2.5-3. Also his hemoglobin came down from 8.6 down to 7.2 today. Since is given for AKA surgery tomorrow we would recommend at least 1 unit of blood transfusion, patient informed and he agrees. He is currently on an aspirin 81 mg no other anticoagulation. Also we will consult general surgery for his anemia. Patient states last colonoscopy was [address] Anderson. However there is no GI coverage in this facility during this week. We will do occult blood in the stool test and anemia workup 01/02/2024 Patient is awake and alert, sitting up at bedside, smiling and joking. He looks relaxed. Denies chest pain or dyspnea. His breathing is okay and there is no evidence of wheezing or significant crepitation. Abdomen soft. His pain of the left BKA stump is controlled. He had 1 bowel movement which was normal for him He got 1 unit of blood transfusion yesterday and hemoglobin went up today 8.6 Anemia workup showing anemia of chronic disease/inflammation. Surgery was consulted and were thinking of colonoscopy on however patient is not really encouraged about doing colonoscopy but he wants his left BKA stump addressed more importantly for him. Xarelto remains on hold for low hemoglobin. 01/03/2024 Patient is s/p left AKA yesterday. Today's postop day #1 He is awake and mentation at baseline, he is pleasant and relaxed Pain controlled no significant leakage and dressing is in place No chest pain no other new complaint 01/04/2024 Patient is looking comfortable lying in bed. No new complaints No chest pain or dyspnea Stump dressing in place with no active bleeding His hemoglobin was 6.5 today and WBC slightly up most likely secondary to his surgery. He is getting 1 unit of blood transfusion Vascular surgery already cleared him for discharge to follow-up with vascular clinic in 2 weeks Plan for patient to be discharged to rehab, possibly on Sunday01/05/2024 Patient is open date, mentation at baseline No specific complaint Left AKA stump is healing with no bleeding or dehiscence of wounds. Hemoglobin 8.5 after 1 unit of blood transfusion. Remains on daptomycin and meropenem 01/06/2024 Patient s/p left AKA. 3 days ago his hemoglobin dropped to 6.5 he got 1 unit of blood and hemoglobin went up to 8.5 today dropped again to 6.3 and the second unit of blood is provided for him Patient himself looks asymptomatic sitting up in chair as usual, no complaint about his left AKA stump like pain or bleeding . Patient has been evaluated by general surgery team and patient declined EGD however after second drop in hemoglobin he agreed today to proceed with EGD with going to discuss that with surgery team Patient currently he agrees to be n.p.o. He remains on daptomycin and meropenem for infection at left AKA site xarelto on hold asprin was held today as well Objective - Vital Signs Vital signs: Vital Signs Temp 98.8 F 01/06/24 14:22 Pulse 62 01/06/24 14:22 Resp 18 01/06/24 14:22 BP 113/56 01/06/24 14:22 Pulse Ox 96 01/06/24 14:22 FiO2 21 01/01/24 09:25 Intake & Output 01/05/24 01/06/24 01/06/24 18:59 06:59 18:59 Intake Total 200 310 Output Total 250 Balance -50 310 Intake: Oral 200 Blood Product 310 Rc As-1 Unit 310 [id number] Output: Urine 250 Other: Voiding Method Urinal Urinal Urinal # Voids 6 - Exam GENERAL: The patient is alert and oriented x3, not in any acute distress. Well developed, well nourished. HEENT: Pupils are round and equally reacting to light. EOMI. No scleral icterus. No conjunctival pallor. Normocephalic, atraumatic. No pharyngeal erythema. No th yromegaly. CARDIOVASCULAR: S1 and S2 present. No murmurs, rubs, or gallops. PULMONARY: Chest is clear to auscultation, no wheezing or crackles. ABDOMEN: Soft, nontender, nondistended, normoactive bowel sounds. No palpable organomegaly. MUSCULOSKELETAL: Left BKA seen, purulent discharge seen. EXTREMITIES: No cyanosis, clubbing, or pedal edema. NEUROLOGICAL: Gross neurological examination did not reveal any focal deficits. SKIN: No rashes. - Labs CBC & Chem 7: 01/06/24 04:52 01/06/24 04:52 Labs: Abnormal Lab Results - Last 24 Hours (Table) 01/03/24 01/06/24 01/06/24 Range/Units 13:18 04:52 04:52 WBC 12.08 H (4.50-10.00) X 10*3/uL RBC 2.38 L (4.40-5.60) X 10*6/uL Hgb 6.3 A* (13.0-17.0) g/dL Hct 20.8 L (39.6-50.0) % MCH 26.5 L (27.0-32.0) pg MCHC 30.3 L (32.0-37.0) g/dL RDW 16.7 H (11.5-14.5) % Immature Gran # 0.09 H (0.00-0.04) X 10*3/uL Neutrophils # 7.89 H (1.80-7.70) X 10*3/uL Eosinophils # 1.96 H (0.04-0.35) X 10*3/uL Sodium 134 L (135-145) mmol/L Creatinine 2.0 H (0.6-1.5) mg/dL Est GFR (CKD-EPI) 38 L (>=60) Calcium 7.6 L (8.7-10.3) mg/dL Total Bilirubin 0.2 L (0.3-1.2) mg/dL C-Reactive Protein 16.10 H (0.00-0.80) mg/dL Total Protein 4.4 L (6.2-8.2) g/dL Albumin 2.3 L (3.8-4.9) g/dL Albumin/Globulin Ratio 1.10 L (1.60-3.17) Ratio Crossmatch See Detail Assessment and Plan Assessment: Surgical site infection of left BKA. Plan to undergo left AKA on 01/01 Recent gangrene of left lower extremity leading to BKA. Recurrent normocytic hypochromic anemia. S/p 2 minutes of blood transfusion. Surgery team on the case History of peripheral vascular disease with chronic critical left lower extremity ischemia s/p left common femoral and endarterectomy and left femoral- popliteal bypass Left sided renal mass CKD stage IV COPD Nicotine dependence Anxiety and depression Plan: Patient is status post a left AKA 01/01. Consult general surgery team for his anemia, general surgery plan for colonoscopy or EGD. Patient is agreeable Xarelto 2.5 mg twice daily which is home medication was placed on hold for the anemia Follow-up on blood culture Follow-up on wound cultures Continue aspirin, Toprol-XL hold aspirin 81 mg for now Continue wound care Continue daptomycin and meropenem Vascular surgery following, ID following Labs and medication were reviewed.. Continue same treatment. Continue with symptomatic treatment. Resume home medication. Monitor labs and vitals. DVT and GI prophylaxis. Further recommendations as per clinical course of the patient
[2024-01-06 21:18] LABS: HCT 26.5 % (39.0-53.0); HGB 8.8 gm/dL (13.0-17.5); Hypochromasia Slight; MCH 28.5 pg (25.0-35.0); MCV 86.4 fL (80.0-100.0); Mean Platelet Volume 7.9; Platelet Count 408 k/uL (150-450); Poikilocytosis Slight; RBC 3.07 m/uL (4.30-5.90); RDW 15.9 % (11.5-15.5); WBC 14.3 k/uL (3.8-10.6)
[2024-01-07 07:44] LABS: Glucose,Whole Blood 102 mg/dL (70-110)
--- NOTE | 2024-01-07 10:25 | P.PN ---
Subjective patient is a 58-year-old gentleman with past medical history significant for peripheral disease, COPD who recently underwent BKA secondary to gangrene of left lower extremity who presented to the ER because of left BKA site not healing well. Stated that he has been noticing that the wound is not healing well, noticed discharge which looked like pus coming from the wound. There was no complaint of fever or chills. Patient is complaining of increasing pain at the stump site. There is no complaint of nausea vomiting. Denies any abdominal pain. Because of the symptoms, patient came to the ER Initial lab work done in the ER showed WBC 11.9, hemoglobin 8.7, platelet count 411, sodium 137, potassium 4.2, BUN 33, creatinine 2.87, lactate 1.2, alk phos 147 EKG done in the ER showed heart rate of 54 , no ST segment elevation or depression seen, no T-wave inversions seen. X-ray of left knee done showed status BKA, distal cortical irregularity at fibular amputation site, concerning for osteo Patient admitted to internal medicine service 12/25. Patient seen examined. Sitting upright in the bed. No acute issues overnight 12/26. Patient seen and examined. Antibiotics changed to daptomycin and meropenem. States he feels better. Denies any fever or chills. Denies any worsening pain in his left stump 12/27. Patient seen and examined. Left BKA stump site has purulent drainage, vascular surgery has evaluated patient, planning surgical intervention on Sunday if there is no clinical improvement /. Patient seen and examined. States he feels that his left BKA wound has improved, stated there is less drainage. 12/29. Patient seen and examined. Hemoglobin this morning 6.9, will order 1 unit of packed red blood cell 12/31/2023 Patient left BKA stump with dressing in place. Pain controlled Patient sitting at bed edge eating, looks comfortable, no specific complaint Plan for left AKA by vascular surgery team on Sunday01/01/2024 Patient is planned to undergo left AKA with vascular surgery team tomorrow Patient currently is fully awake and oriented at baseline, he denies chest pain or dyspnea, no other complaints. His main complaint is pain at the left BKA stump which is ongoing since admission. Patient is hemodynamically stable and labs and vitals reviewed Patient had recent stress test which was negative for reversible ischemia on 12/13/2023. Patient cleared by lace sewer for procedure at that time Also patient recently had BKA during this hospitalization and he tolerated that as well regarding his breathing and kidney disease, his creatinine is stable around 2.5-3. Also his hemoglobin came down from 8.6 down to 7.2 today. Since is given for AKA surgery tomorrow we would recommend at least 1 unit of blood transfusion, patient informed and he agrees. He is currently on an aspirin 81 mg no other anticoagulation. Also we will consult general surgery for his anemia. Patient states last colonoscopy was [address] Anderson. However there is no GI coverage in this facility during this week. We will do occult blood in the stool test and anemia workup 01/02/2024 Patient is awake and alert, sitting up at bedside, smiling and joking. He looks relaxed. Denies chest pain or dyspnea. His breathing is okay and there is no evidence of wheezing or significant crepitation. Abdomen soft. His pain of the left BKA stump is controlled. He had 1 bowel movement which was normal for him He got 1 unit of blood transfusion yesterday and hemoglobin went up today 8.6 Anemia workup showing anemia of chronic disease/inflammation. Surgery was consulted and were thinking of colonoscopy on however patient is not really encouraged about doing colonoscopy but he wants his left BKA stump addressed more importantly for him. Xarelto remains on hold for low hemoglobin. 01/03/2024 Patient is s/p left AKA yesterday. Today's postop day #1 He is awake and mentation at baseline, he is pleasant and relaxed Pain controlled no significant leakage and dressing is in place No chest pain no other new complaint 01/04/2024 Patient is looking comfortable lying in bed. No new complaints No chest pain or dyspnea Stump dressing in place with no active bleeding His hemoglobin was 6.5 today and WBC slightly up most likely secondary to his surgery. He is getting 1 unit of blood transfusion Vascular surgery already cleared him for discharge to follow-up with vascular clinic in 2 weeks Plan for patient to be discharged to rehab, possibly on Sunday01/05/2024 Patient is open date, mentation at baseline No specific complaint Left AKA stump is healing with no bleeding or dehiscence of wounds. Hemoglobin 8.5 after 1 unit of blood transfusion. Remains on daptomycin and meropenem 01/06/2024 Patient s/p left AKA. 3 days ago his hemoglobin dropped to 6.5 he got 1 unit of blood and hemoglobin went up to 8.5 today dropped again to 6.3 and the second unit of blood is provided for him Patient himself looks asymptomatic sitting up in chair as usual, no complaint about his left AKA stump like pain or bleeding . Patient has been evaluated by general surgery team and patient declined EGD however after second drop in hemoglobin he agreed today to proceed with EGD with going to discuss that with surgery team Patient currently he agrees to be n.p.o. 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 Patient denies trying to get out of bed, currently he is complaining from pain in both hip areas however there is no restriction of movement and also he has some mild to moderate pain in the lower back. Yesterday his hemoglobin improved after 1 units which is the second unit of blood transfusion up to 8.8. Patient has no bowel movement since yesterday and there is no reports of bleeding from anywhere. Also yesterday we lowered his Percocet 10 mg down to 7.5 mg which is his home dose I checked with the patient he states for the last 3 years he was taking only baby aspirin. He stopped taking Xarelto for about 2 years ago or more Patient also going for EGD or/endoscopy with surgery team today. Review of systems CONSTITUTIONAL: No fever, no malaise, no fatigue. HEENT: No recent visual problems or hearing problems. Denied any sore throat. CARDIOVASCULAR: No orthopnea, PND, no palpitations, no syncope. GENITOURINARY: Denies any burning micturition, frequency, or urgency. MUSCULOSKELETAL/RHEUMATOLOGICAL: Denies any joint pain, swelling, or any muscle pain. ENDOCRINE: Denies any polyuria or polydipsia. Active Medications Generic Name Dose Route Start Last Admin Trade Name Freq PRN Reason Stop Dose Admin Acetaminophen 650 mg 12/25/23 06:37 01/06/24 23:57 Acetaminophen Tab 325 Mg Tab PO 650 mg Q6H PRN Administration Mild Pain (Scale 1 to 3) Amiodarone HCl 200 mg 12/25/23 09:00 01/07/24 07:43 Amiodarone 200 Mg Tab PO 200 mg BID OLVIN Administration Ascorbic Acid 500 mg 12/25/23 09:00 01/07/24 07:43 Ascorbic Acid 500 Mg Tab PO 500 mg DAILY OLVIN Administration Calamine 1 applic 12/30/23 12:58 12/30/23 16:13 Calamine/Zinc Oxide Lotion 177 Ml Btl TOPICAL 1 applic BID PRN Administration Skin Irritation Protocol Famotidine 20 mg 12/25/23 09:00 01/07/24 07:43 Famotidine 20 Mg Tab PO 20 mg DAILY OLVIN Administration Gabapentin 300 mg 01/04/24 16:00 01/07/24 07:43 Gabapentin 300 Mg Cap PO 300 mg TID OLVIN Administration Daptomycin 400 mg/ Sodium 50 mls @ 100 mls/hr 12/26/23 09:00 01/07/24 09:49 Chloride IVPB 100 mls/hr Q24HR OLVIN Administration Protocol Lactated Ringer's 1,000 mls @ 20 mls/hr 01/02/24 14:51 01/06/24 13:05 Lactated Ringers IV Not Given .Q24H OLVIN Meropenem 1 gm/ Sodium 100 mls @ 33.3 mls/hr 01/03/24 21:00 01/07/24 05:21 Chloride IVPB 33.3 mls/hr Q8H OLVIN Administration Protocol Magnesium Oxide 400 mg 12/25/23 09:00 01/07/24 07:42 Magnesium Oxide 400 Mg Tab PO 400 mg BID OLVIN Administration Metoprolol Succinate 25 mg 12/25/23 09:00 01/07/24 07:43 Metoprolol Succinate (Er) 25 Mg Tab.Er.24h PO 25 mg DAILY OLVIN Administration Mirtazapine 15 mg 12/25/23 21:00 01/06/24 21:46 Mirtazapine 15 Mg Tab PO 15 mg HS OLVIN Administration Naloxone HCl 0.2 mg 12/25/23 06:37 Naloxone 0.4 Mg/Ml 1 Ml Vial IV Q2M PRN OPIOID REVERSAL Oxycodone/Acetaminophen 1 each 12/24/23 20:31 01/07/24 07:43 Oxycodone-Apap 10-325mg 1 Each Tab PO 1 each Q6HR PRN Administration Pain Oxycodone/Acetaminophen 1 each 01/07/24 06:58 Oxycodone-Apap 7.5-325mg 1 Each Tab PO Q6HR PRN Pain Senna 8.6 mg 12/25/23 09:00 01/07/24 07:43 Sennosides 8.6 Mg Tab PO 8.6 mg BID OLVIN Administration Sodium Bicarbonate 650 mg 12/25/23 09:00 01/07/24 07:42 Sodium Bicarbonate Tab 650 Mg Tab PO 650 mg BID OLVIN Administration Sodium Hypochlorite 30 ml 12/25/23 09:00 01/07/24 07:44 Sodium Hypochlorite 0.25% 480 Ml Bot MISCELLANE 30 ml BID OLVIN Administration Tamsulosin HCl 0.4 mg 12/25/23 09:00 01/07/24 07:43 Tamsulosin 0.4 Mg Cap.Er.24h PO 0.4 mg DAILY OLVIN Administration Thiamine HCl 100 mg 12/25/23 09:00 01/07/24 07:43 Thiamine 100 Mg Tab PO 100 mg DAILY OLVIN Administration Objective - Vital Signs Vital signs: Vital Signs Temp 98.3 F 01/07/24 07:25 Pulse 78 01/07/24 07:25 Resp 18 01/07/24 07:25 BP 138/66 01/07/24 07:25 Pulse Ox 93 L 01/07/24 07:25 FiO2 21 01/01/24 09:25 Intake & Output 01/06/24 01/07/24 01/07/24 18:59 06:59 18:59 Intake Total 310 Output Total 1450 550 Balance 310 -1450 -550 Intake: Blood Product 310 Rc As-1 Unit 310 [id number] Output: Urine 1450 550 Other: Voiding Method Urinal Urinal # Voids 6 3 - Exam GENERAL: The patient is alert and oriented x3, not in any acute distress. Well developed, well nourished. HEENT: Pupils are round and equally reacting to light. EOMI. No scleral icterus. No conjunctival pallor. Normocephalic, atraumatic. No pharyngeal erythema. No thyromegaly. CARDIOVASCULAR: S1 and S2 present. No murmurs, rubs, or gallops. PULMONARY: Chest is clear to auscultation, no wheezing or crackles. ABDOMEN: Soft, nontender, nondistended, normoactive bowel sounds. No palpable organomegaly. MUSCULOSKELETAL: Left BKA seen, purulent discharge seen. EXTREMITIES: No cyanosis, clubbing, or pedal edema. NEUROLOGICAL: Gross neurological examination did not reveal any focal deficits. SKIN: No rashes. - Labs CBC & Chem 7: 01/06/24 20:26 01/06/24 04:52 Labs: Abnormal Lab Results - Last 24 Hours (Table) 01/03/24 01/06/24 01/06/24 Range/Units 13:18 04:52 20: WBC 14.3 H (3.8-10.6) k/uL RBC 3.07 L (4.30-5.90) m/uL Hgb 8.8 L (13.0-17.5) gm/dL Hct 26.5 L (39.0-53.0) % RDW 15.9 H (11.5-15.5) % Sodium 134 L (135-145) mmol/L Creatinine 2.0 H (0.6-1.5) mg/dL Est GFR (CKD-EPI) 38 L (>=60) Calcium 7.6 L (8.7-10.3) mg/dL Total Bilirubin 0.2 L (0.3-1.2) mg/dL C-Reactive Protein 16.10 H (0.00-0.80) mg/dL Total Protein 4.4 L (6.2-8.2) g/dL Albumin 2.3 L (3.8-4.9) g/dL Albumin/Globulin Ratio 1.10 L (1.60-3.17) Ratio Crossmatch See Detail Assessment and Plan Assessment: Fall without syncope with bilateral hip pain 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 Recurrent normocytic hypochromic anemia. S/p 2 minutes of blood transfusion. Surgery team on the case History of peripheral vascular disease with chronic critical left lower extremity ischemia s/p left common femoral and endarterectomy and left femoral- popliteal bypass Left sided renal mass CKD stage IV COPD Nicotine dependence Anxiety and depression Plan: Patient is status post a left AKA 01/01. Consult general surgery team for his anemia, general surgery plan for colonoscopy or EGD. Patient is agreeable Xarelto 2.5 mg twice daily which is home medication was placed on hold for the anemia Follow-up on blood culture Follow-up on wound cultures Continue aspirin, Toprol-XL hold aspirin 81 mg for now Continue wound care Continue daptomycin and meropenem Vascular surgery following, ID following Labs and medication were reviewed.. Continue same treatment. Continue with symptomatic treatment. Resume home medication. Monitor labs and vitals. DVT and GI prophylaxis. Further recommendations as per clinical course of the patient
--- NOTE | 2024-01-07 11:17 | XR ---
EXAMINATION TYPE: XR Hip RT and AP Pelvis DATE OF EXAM: 01/07/2024 11:06 AM INDICATION: Patient age:Male; 58 years old; Reason for study: Post Fall; PHH. COMPARISON: None. TECHNIQUE: The right hip was examined in the frontal and lateral projections and a AP pelvis. Additio nal images of the left hip were obtained. FINDINGS: No evidence of any acute osseous pathology, joint dislocation, or soft tissue swelling. Rig ht proximal thigh vascular stent is identified with adjacent surgical clips. Vascular sclerosis is de monstrated. IMPRESSION: No acute osseous pathology.
--- NOTE | 2024-01-07 12:47 | P.PN ---
Subjective Progress Note Date: 01/07/24 CHIEF COMPLAINT: Infection at surgical site HISTORY OF PRESENT ILLNESS: Surgical service following regards to patient's anemia. Patient has had no blood in the stools. No black stools. Patient denies any abdominal pain. Denies any nausea or vomiting. Patient has required a total of 5 units of blood during this admission. Hemoglobin 6.3 up to 8.8 after blood transfusion yesterday PHYSICAL EXAM: VITAL SIGNS: Reviewed. GENERAL: Well-developed in no acute distress. ABDOMEN: Soft. Nondistended. Nontender. NEUROLOGIC: Alert and oriented. Cranial nerves II through XII grossly intact. ASSESSMENT: 1. Normocytic anemia 2. Severe protein calorie malnutrition 3. Infection at surgical site status post eqyxm-enk-hnke amputation 4. History of duodenal ulcer PLAN: -Patient is now agreeable to proceed with EGD. Patient will be scheduled for EGD today with Dr. Mireles -Keep patient n.p.o. Physician Plant Operations Vice President note has been reviewed by physician. Signing provider agrees with the documented findings, assessment, and plan of care. Objective - Vital Signs Vital signs: Vital Signs Temp 98.3 F 01/07/24 07:25 Pulse 78 01/07/24 07:25 Resp 18 01/07/24 07:25 BP 138/66 01/07/24 07:25 Pulse Ox 93 L 01/07/24 07:25 FiO2 21 01/01/24 09:25 Intake & Output 01/06/24 01/07/24 01/07/24 18:59 06:59 18:59 Intake Total 310 Output Total 1450 1195 Balance 310 -1450 -1195 Intake: Blood Product 310 Rc As-1 Unit 310 [id number] Output: Urine 1450 1195 Other: Voiding Method Urinal Urinal # Voids 6 3 - Labs CBC & Chem 7: 01/06/24 20:26 01/06/24 04:52 Labs: Abnormal Lab Results - Last 24 Hours (Table) 01/03/24 01/06/24 Range/Units 13:18 20:26 WBC 14.3 H (3.8-10.6) k/uL RBC 3.07 L (4.30-5.90) m/uL Hgb 8.8 L (13.0-17.5) gm/dL Hct 26.5 L (39.0-53.0) % RDW 15.9 H (11.5-15.5) % Crossmatch See Detail
[2024-01-07] MEDS ORDERED: PROPOFOL 10 MG/ML 20 ML VIAL IV ONE (17:20)
[2024-01-07] MEDS: IV FLUID CONTINUATION 500 ML IV ONE (17:31)
--- NOTE | 2024-01-07 17:33 | P.OP ---
Date of Procedure: 01/07/24 Preoperative Diagnosis: anemia Postoperative Diagnosis: gastritis Procedure(s) Performed: EGD Anesthesia: MAC Surgeon: Isidro Mireles Pathology: other (antral) Condition: stable Disposition: PACU Description of Procedure: the patient's placed on the endoscopy table in the lateral position. He received IV sedation. The gastroscope placed oropharynx passed in the esophagus and stomach. Scope was then placed through the pylorus. The first and second portion of the duodenum appeared normal. Scope was then brought back the antrum and this appeared moderately inflamed. A biopsies performed. The scope was then retroflexed and the remainder of the stomach appeared normal. The GE junction was at 38 7 is. There was a small sliding hiatal hernia. The distal esophagus appeared normal. The proximal esophagus appeared normal. Scope withdrawn for patient.
[2024-01-08] MEDS: PANTOPRAZOLE 40 MG TABLET PO SCH (08:39)
--- NOTE | 2024-01-08 14:34 | P.PN ---
Subjective Progress Note Date: 01/08/24 CHIEF COMPLAINT: Infection at surgical site HISTORY OF PRESENT ILLNESS: Patient is status post EGD revealing gastritis and a small sliding hiatal hernia. Patient denies any abdominal pain. Denies any blo od in his stools. Labs for today are not back yet. Afebrile PHYSICAL EXAM: VITAL SIGNS: Reviewed. GENERAL: Well-developed in no acute distress. ABDOMEN: Soft. Nondistended. Nontender. NEUROLOGIC: Alert and oriented. Cranial nerves II through XII grossly intact. ASSESSMENT: 1. Normocytic anemia 2. Severe protein calorie malnutrition 3. Infection at surgical site status post kxukb-ldf-rzup amputation 4. History of duodenal ulcer PLAN: -Patient can be discharged from surgical standpoint when medically cleared -Protonix added for gastritis -Continue Ensure protein drink for protein calorie nutrition Physician [employer] Washer note has been reviewed by physician. Signing provider agrees with the documented findings, assessment, and plan of care. Objective - Vital Signs Vital signs: Vital Signs Temp 98.7 F 01/08/24 14:16 Pulse 61 01/08/24 14:16 Resp 17 01/08/24 14:16 BP 127/69 01/08/24 14:16 Pulse Ox 92 L 01/08/24 14:16 FiO2 21 01/01/24 09:25 Intake & Output 01/07/24 01/08/24 01/08/24 18:59 06:59 18:59 Intake Total 100 120 Output Total 2115 300 Balance -2014 120 Intake: IV 100 Oral 120 Output: Urine 2114 300 Other: Voiding Method Urinal Urinal # Voids 1 - Labs CBC & Chem 7: 01/06/24 20:26 01/06/24 04:52
[2024-01-08 15:26] LABS: Blood Urea Nitrogen 21.2 mg/dL (9.0-27.0); Calcium 8.1 mg/dL (8.7-10.3); Carbon Dioxide 22.7 mmol/L (21.6-31.8); Chloride 98 mmol/L (96-109); Glucose 88 mg/dL (70-110); Potassium 4.1 mmol/L (3.5-5.5); Sodium 135 mmol/L (135-145)
[2024-01-08 15:27] LABS: Basophils # (A) 0.07 X 10*3/uL (0.00-0.10); Basophils % (A) 0.6 %; Eosinophils # (A) 1.61 X 10*3/uL (0.04-0.35); HCT 27.9 % (39.6-50.0); HGB 8.7 g/dL (13.0-17.0); Lymphocytes # (A) 1.38 X 10*3/uL (0.90-5.00); Lymphocytes % (A) 11.2 %; MCH 27.8 pg (27.0-32.0); MCHC 31.2 g/dL (32.0-37.0); MCV 89.1 FL (80.0-97.0); Mean Platelet Volume 9.6 FL (9.5-12.2); Monocytes # (A) 0.94 X 10*3/uL (0.20-1.00); Monocytes % (A) 7.6 %; NRBC Per 100 WBC 0 X 10*3/uL (0.00-0.01); Neutrophils # (A) 8.24 X 10*3/uL (1.80-7.70); Neutrophils % (A) 66.7 %; Platelet Count 465 X 10*3/uL (140-440); RBC 3.13 X 10*6/uL (4.40-5.60); RDW 16.5 % (11.5-14.5); WBC 12.35 X 10*3/uL (4.50-10.00)
--- NOTE | 2024-01-08 15:57 | P.PN ---
Subjective Progress Note Date: 01/07/24 Principal diagnosis: Reason for follow-up is left BKA stump wound infection Patient is a 58-year-old male with a past medical history significant for COPD DVT right lower extremity in this patient dealing with the left foot gangrene cellulitis failing medical therapy and the patient is recently status post left below the knee amputation patient presented back to the hospital with left BKA surgical wound dehiscence and infection.Patient is status post left lcwbv-gls-bzfr amputation completed on 01/02/2024 On today's evaluation that is 01/07/2024, patient has been afebrile, patient is breathing comfortably and is currently on room air, patient denies having any si gnificant cough no chest pain shortness of breath, patient denies nausea vomiting or diarrhea and no abdominal pain,. Patient has been upset as he did have a fall from the bed complaining of feeling hungry waiting for EGD. No lab draw today Objective - Vital Signs Vital signs: Vital Signs Temp 98.6 F 01/07/24 14:56 Pulse 67 01/07/24 14:56 Resp 18 01/07/24 14:56 BP 142/75 01/07/24 14:56 Pulse Ox 92 L 01/07/24 14:56 FiO2 21 01/01/24 09:25 Intake & Output 01/06/24 01/07/24 01/07/24 18:59 06:59 18:59 Intake Total 310 Output Total 1450 1865 Balance 310 -9910 -186 Intake: Blood Product 310 Rc As-1 Unit 310 [id number] Output: Urine 1450 1865 Other: Voiding Method Urinal Urinal # Voids 6 3 1 - Exam GENERAL DESCRIPTION: Middle-aged male lying in bed in no distress RESPIRATORY SYSTEM: Unlabored breathing , decreased breath sounds at bases HEART: S1 S2 regular rate and rhythm , ABDOMEN: Soft , no tenderness EXTREMITIES: Left AKA stump is currently dressed - Labs CBC & Chem 7: 01/08/24 08:32 01/08/24 08:32 Labs: Abnormal Lab Results - Last 24 Hours (Table) 01/06/24 Range/Units 20:26 WBC 14.3 H (3.8-10.6) k/uL RBC 3.07 L (4.30-5.90) m/uL Hgb 8.8 L (13.0-17.5) gm/dL Hct 26.5 L (39.0-53.0) % RDW 15.9 H (11.5-15.5) % Assessment and Plan (1) Infection due to ESBL-producing Klebsiella pneumoniae Current Visit: Yes Status: Acute Code(s): A49.8 - OTHER BACTERIAL INFECTIONS OF UNSPECIFIED SITE; Z16.12 - EXTENDED SPECTRUM BETA LACTAMASE (ESBL) RESISTANCE SNOMED Code(s): 253555027 (2) Deep incisional surgical site infection Current Visit: Yes Status: Acute Code(s): T81.42XA - INFCT FOL A PROCEDURE, DEEP INCISIONAL SURGICAL SITE, INIT SNOMED Code(s): 673472796 (3) Cellulitis of left leg Current Visit: No Status: Acute Code(s): L03.116 - CELLULITIS OF LEFT LOWER LIMB SNOMED Code(s): 46814396285526422 Plan: 1patient presented to hospital with left BKA stump incision dehiscence cellulitis will need to cover for the resistant gram-positive as well as gram- negative keeping in mind recent multiple admission to the hospital 2-patient with renal sufficiency high risk of nephrotoxicity from vancomycin 3-patient local culture currently growing ESBL Klebsiella as well as VRE and Achromobacter 4-patient is s/p left iqaco-itt-ksix amputation completed on 01/02/2024 5-patient noticed to have elevated white count postsurgery possible reactive as also noticed to have drop in hemoglobin requiring transfusion currently waiting for EGD we will continue patient on meropenem and daptomycin repeat a CBC with a.m. lab Dictation was produced using [employer] dictation software. please excuse any grammatical, word or spelling errors. Time with Patient: Less than 30
--- NOTE | 2024-01-08 15:57 | P.PN ---
Subjective Progress Note Date: 01/08/24 Principal diagnosis: Reason for follow-up is left BKA stump wound infection Patient is a 58-year-old male with a past medical history significant for COPD DVT right lower extremity in this patient dealing with the left foot gangrene cellulitis failing medical therapy and the patient is recently status post left below the knee amputation patient presented back to the hospital with left BKA surgical wound dehiscence and infection.Patient is status post left cdnas-iom-khlo amputation completed on 01/02/2024,Patient did have an EGD with evidence of gastritis procedure completed on 01/07/2024 On today's evaluation 01/08/2024, Patient is afebrile this morning and denies any chills, patient mention breathing comfortably and is currently on room air, patient denies any chest pain occasional cough patient denies any abdominal pain no diarrhea no nausea no vomiting denies any worsening pain to the left AKA stump Patient white count is down to 12.35, creatinine is 2.0 Objective - Vital Signs Vital signs: Vital Signs Temp 98.3 F 01/08/24 13:05 Pulse 67 01/08/24 13:05 Resp 18 01/08/24 13:05 BP 122/76 01/08/24 13:05 Pulse Ox 94 L 01/08/24 13:05 FiO2 21 01/01/24 09:25 Intake & Output 01/07/24 01/08/24 01/08/24 18:59 06:59 18:59 Intake Total 100 Output Total 2115 300 -2014 Intake: IV 100 Output: Urine 2114 300 Other: Voiding Method Urinal Urinal # Voids 1 - Exam GENERAL DESCRIPTION: Middle-aged male lying in bed in no distress RESPIRATORY SYSTEM: Unlabored breathing , decreased breath sounds at bases HEART: S1 S2 regular rate and rhythm , ABDOMEN: Soft , no tenderness EXTREMITIES: Left AKA stump is currently dressed - Labs CBC & Chem 7: 01/08/24 08:32 01/08/24 08:32 Assessment and Plan (1) Infection due to ESBL-producing Klebsiella pneumoniae Current Visit: Yes Status: Acute Code(s): A49.8 - OTHER BACTERIAL INFECTIONS OF UNSPECIFIED SITE; Z16.12 - EXTENDED SPECTRUM BETA LACTAMASE (ESBL) RESISTANCE SNOMED Code(s): 536207006 (2) Deep incisional surgical site infection Current Visit: Yes Status: Acute Code(s): T81.42XA - INFCT FOL A PROCEDURE, DEEP INCISIONAL SURGICAL SITE, INIT SNOMED Code(s): 327308854 (3) Cellulitis of left leg Current Visit: No Status: Acute Code(s): L03.116 - CELLULITIS OF LEFT LOWER LIMB SNOMED Code(s): 05099401861220727 Plan: 1patient presented to hospital with left BKA stump incision dehiscence cellulitis will need to cover for the resistant gram-positive as well as gram- negative keeping in mind recent multiple admission to the hospital 2-patient with renal sufficiency high risk of nephrotoxicity from vancomycin 3-patient local culture currently growing ESBL Klebsiella as well as VRE and Achromobacter 4-patient is s/p left ukknz-yvh-ooft amputation completed on 01/02/2024 5-patient white count is trending down, we will continue the patient on meropenem and daptomycin while inpatient Dictation was produced using [employer] dictation software. please excuse any grammatical, word or spelling errors. Time with Patient: Less than 30
[2024-01-08] MEDS: oxyCODONE-APAP 7.5-325MG 1 EACH TAB PO PRN (21:39)
--- NOTE | 2024-01-09 00:59 | P.PN ---
Subjective patient is a 58-year-old gentleman with past medical history significant for peripheral disease, COPD who recently underwent BKA secondary to gangrene of left lower extremity who presented to the ER because of left BKA site not healing well. Stated that he has been noticing that the wound is not healing well, noticed discharge which looked like pus coming from the wound. There was no complaint of fever or chills. Patient is complaining of increasing pain at the stump site. There is no complaint of nausea vomiting. Denies any abdominal pain. Because of the symptoms, patient came to the ER Initial lab work done in the ER showed WBC 11.9, hemoglobin 8.7, platelet count 411, sodium 137, potassium 4.2, BUN 33, creatinine 2.87, lactate 1.2, alk phos 147 EKG done in the ER showed heart rate of 54 , no ST segment elevation or depression seen, no T-wave inversions seen. X-ray of left knee done showed status BKA, distal cortical irregularity at fibular amputation site, concerning for osteo Patient admitted to internal medicine service 12/25. Patient seen examined. Sitting upright in the bed. No acute issues overnight 12/26. Patient seen and examined. Antibiotics changed to daptomycin and meropenem. States he feels better. Denies any fever or chills. Denies any worsening pain in his left stump 12/27. Patient seen and examined. Left BKA stump site has purulent drainage, vascular surgery has evaluated patient, planning surgical intervention on Sunday if there is no clinical improvement /. Patient seen and examined. States he feels that his left BKA wound has improved, stated there is less drainage. 12/29. Patient seen and examined. Hemoglobin this morning 6.9, will order 1 unit of packed red blood cell 12/31/2023 Patient left BKA stump with dressing in place. Pain controlled Patient sitting at bed edge eating, looks comfortable, no specific complaint Plan for left AKA by vascular surgery team on Sunday01/01/2024 Patient is planned to undergo left AKA with vascular surgery team tomorrow Patient currently is fully awake and oriented at baseline, he denies chest pain or dyspnea, no other complaints. His main complaint is pain at the left BKA stump which is ongoing since admission. Patient is hemodynamically stable and labs and vitals reviewed Patient had recent stress test which was negative for reversible ischemia on 12/13/2023. Patient cleared by personnel adviser for procedure at that time Also patient recently had BKA during this hospitalization and he tolerated that as well regarding his breathing and kidney disease, his creatinine is stable around 2.5-3. Also his hemoglobin came down from 8.6 down to 7.2 today. Since is given for AKA surgery tomorrow we would recommend at least 1 unit of blood transfusion, patient informed and he agrees. He is currently on an aspirin 81 mg no other anticoagulation. Also we will consult general surgery for his anemia. Patient states last colonoscopy was [address] Anderson. However there is no GI coverage in this facility during this week. We will do occult blood in the stool test and anemia workup 01/02/2024 Patient is awake and alert, sitting up at bedside, smiling and joking. He looks relaxed. Denies chest pain or dyspnea. His breathing is okay and there is no evidence of wheezing or significant crepitation. Abdomen soft. His pain of the left BKA stump is controlled. He had 1 bowel movement which was normal for him He got 1 unit of blood transfusion yesterday and hemoglobin went up today 8.6 Anemia workup showing anemia of chronic disease/inflammation. Surgery was consulted and were thinking of colonoscopy on however patient is not really encouraged about doing colonoscopy but he wants his left BKA stump addressed more importantly for him. Xarelto remains on hold for low hemoglobin. 01/03/2024 Patient is s/p left AKA yesterday. Today's postop day #1 He is awake and mentation at baseline, he is pleasant and relaxed Pain controlled no significant leakage and dressing is in place No chest pain no other new complaint 01/04/2024 Patient is looking comfortable lying in bed. No new complaints No chest pain or dyspnea Stump dressing in place with no active bleeding His hemoglobin was 6.5 today and WBC slightly up most likely secondary to his surgery. He is getting 1 unit of blood transfusion Vascular surgery already cleared him for discharge to follow-up with vascular clinic in 2 weeks Plan for patient to be discharged to rehab, possibly on Sunday01/05/2024 Patient is open date, mentation at baseline No specific complaint Left AKA stump is healing with no bleeding or dehiscence of wounds. Hemoglobin 8.5 after 1 unit of blood transfusion. Remains on daptomycin and meropenem 01/06/2024 Patient s/p left AKA. 3 days ago his hemoglobin dropped to 6.5 he got 1 unit of blood and hemoglobin went up to 8.5 today dropped again to 6.3 and the second unit of blood is provided for him Patient himself looks asymptomatic sitting up in chair as usual, no complaint about his left AKA stump like pain or bleeding . Patient has been evaluated by general surgery team and patient declined EGD however after second drop in hemoglobin he agreed today to proceed with EGD with going to discuss that with surgery team Patient currently he agrees to be n.p.o. He remains on daptomycin and meropenem for infection at left AKA site xarelto on hold asprin was held today as well 01/07/2024 Patient is awake and alert however he fell floor layer about 7-7:30 in the morning, he states he was dreaming and once he he woke up it was trying to give up when he fell from bed onto his side with no head trauma. Patient denies trying to get out of bed, currently he is complaining from pain in both hip areas however there is no restriction of movement and also he has some mild to moderate pain in the lower back. Yesterday his hemoglobin improved after 1 units which is the second unit of blood transfusion up to 8.8. Patient has no bowel movement since yesterday and there is no reports of bleeding from anywhere. Also yesterday we lowered his Percocet 10 mg down to 7.5 mg which is his home dose I checked with the patient he states for the last 3 years he was taking only baby aspirin. He stopped taking Xarelto for about 2 years ago or more Patient also going for EGD or/endoscopy with surgery team today. 01/08/24 Patient clinically doing well Status post EGD yesterday showing gastric antral inflammation status postbiopsy which is pending Hemoglobin stable 8.7 Surgery team recommended Protonix and scheduled for discharge Patient remains on antibiotic I spoke with case aide patient will be considered for discharge in 24 to 48 hours if he continues to improve/remained stable. performing arts road manager will start the process of prior authorization which requires about 24 hours. Patient is going to rehab upon discharge Patient confirmed to me for the last 2 years he was taking only aspirin and he was not taking any Xarelto. Aspirin can be resumed once cleared by surgery team Objective - Vital Signs Vital signs: Vital Signs Temp 98.3 F 01/08/24 19:36 Pulse 67 01/08/24 19:36 Resp 19 01/08/24 19:36 BP 127/70 01/08/24 19:36 Pulse Ox 90 L 01/08/24 19:36 FiO2 21 01/01/24 09:25 Intake & Output 01/08/24 01/08/24 01/09/24 06:59 18:59 06:59 Intake Total 240 Output Total 300 Balance -300 240 Intake: Oral 240 Output: Urine 300 Other: Voiding Method Urinal Urinal # Voids 3 - Exam GENERAL: The patient is alert and oriented x3, not in any acute distress. Well developed, well nourished. HEENT: Pupils are round and equally reacting to light. EOMI. No scleral icterus. No conjunctival pallor. Normocephalic, atraumatic. No pharyngeal erythema. No thyromegaly. CARDIOVASCULAR: S1 and S2 present. No murmurs, rubs, or gallops. PULMONARY: Chest is clear to auscultation, no wheezing or crackles. ABDOMEN: Soft, nontender, nondistended, normoactive bowel sounds. No palpable organomegaly. MUSCULOSKELETAL: Left BKA seen, purulent discharge seen. EXTREMITIES: No cyanosis, clubbing, or pedal edema. NEUROLOGICAL: Gross neurological examination did not reveal any focal deficits. SKIN: No rashes. - Labs CBC & Chem 7: 01/08/24 08:32 01/08/24 08:32 Labs: Abnormal Lab Results - Last 24 Hours (Table) 01/08/24 01/08/24 Range/Units 08:32 08:32 WBC 12.35 H (4.50-10.00) X 10*3/uL RBC 3.13 L (4.40-5.60) X 10*6/uL Hgb 8.7 L (13.0-17.0) g/dL Hct 27.9 L (39.6-50.0) % MCHC 31.2 L (32.0-37.0) g/dL RDW 16.5 H (11.5-14.5) % Plt Count 465 H (140-440) X 10*3/uL Immature Gran # 0.11 H (0.00-0.04) X 10*3/uL Neutrophils # 8.24 H (1.80-7.70) X 10*3/uL Eosinophils # 1.61 H (0.04-0.35) X 10*3/uL Anion Gap 14.30 H (4.00-12.00) mmol/L Creatinine 2.0 H (0.6-1.5) mg/dL Est GFR (CKD-EPI) 38 L (>=60) BUN/Creatinine Ratio 10.60 L (12.00-20.00) Ratio Calcium 8.1 L (8.7-10.3) mg/dL Assessment and Plan Assessment: Fall without syncope with bilateral hip pain 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 Recurrent normocytic hypochromic anemia. S/p 2 minutes of blood transfusion. Surgery team on the case History of peripheral vascular disease with chronic critical left lower extremity ischemia s/p left common femoral and endarterectomy and left femoral-popliteal bypass Left sided renal mass CKD stage IV COPD Nicotine dependence Anxiety and depression Plan: Patient is status post a left AKA 01/01. Consult general surgery team for his anemia, general surgery plan for colonoscopy or EGD. Patient is agreeable Aspirin will be resumed once cleared by surgery team Continue aspirin, Toprol-XL Continue wound care Continue daptomycin and meropenem Vascular surgery following, who cleared the patient for discharge General surgery also cleared the patient for discharge ID following Labs and medication were reviewed.. Continue same treatment. Continue with symptomatic treatment. Resume home medication. Monitor labs and vitals. DVT and GI prophylaxis. Further recommendations as per clinical course of the patient
[2024-01-09 08:43] VITALS: RESP 18
--- NOTE | 2024-01-09 12:08 | P.DS ---
Providers Date of admission: 12/24/23 20:08 Attending physician: Moe Snow MD Consults: 12/24/23 20:06 Consult Physician Urgent Consulting Provider: Surekha Stearns Consult Reason/Comments: Infected surgical incision Do you want consulting provider notified?: Yes Consult Physician Urgent Consulting Provider: Torrie Shaffer Consult Reason/Comments: Infected surgical incision Do you want consulting provider notified?: Yes 01/01/24 11:15 Consult Physician Routine Consulting Provider: Isidro Mireles Consult Reason/Comments: anemia Do you want consulting provider notified?: Yes Primary care physician: Kierra Fisher DO Hospital Course: Diagnoses: Fall without syncope with bilateral hip pain 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 Recurrent normocytic hypochromic anemia. S/p 2 minutes of blood transfusion. Surgery team on the case History of peripheral vascular disease with chronic critical left lower extremity ischemia s/p left common femoral and endarterectomy and left femoral- popliteal bypass Left sided renal mass CKD stage IV COPD Nicotine dependence Anxiety and depression Hospital course: patient is a 58-year-old gentleman with past medical history significant for peripheral disease, COPD who recently underwent BKA secondary to gangrene of left lower extremity who presented to the ER because of left BKA site not healing well. Stated that he has been noticing that the wound is not healing well, noticed discharge which looked like pus coming from the wound. There was no complaint of fever or chills. Patient is complaining of increasing pain at the stump site. Patient found to have left BKA incision dehiscence with cellulitis. Patient evaluated by infectious disease team and vascular surgery team. He was treated with daptomycin and meropenem and he underwent conversion left BKA into left AKA on 01/01. He tolerated procedure well. Postoperatively patient dropped hemoglobin to twice requiring 2 times of blood transfusion, currently hemoglobin stable Surgery team evaluated patient as well he is status post EGD showing antral gastritis on 01/06 Also patient with evidence of chronic kidney disease but that is stable Today patient is sitting up in bed fully awake and oriented at baseline. Denies chest pain or dyspnea. He denies also any new complaint. He had some bad dreams last night in which he was kicking his arms and legs but this stops once he woke up confirmed with the staff. Currently he denies any other symptom. He has some pain at the left AKA surgery site which is expected Also patient been cleared for discharge by all consultants including vascular surgery team with a plan for him to follow-up with Dr. Car early next week as he confirms to me Patient was cleared for discharge by general surgery team and infectious disease team. Patient will be discharged on antibiotic per ID team. Aspirin can be resumed per surgery team after the procedure with close monitoring of hemoglobin Problems and management plan were discussed with the patient and he verbalized understanding and acceptance Patient was found stable and can be discharged home in guarded prognosis however he needs follow-up as an outpatient. Patient was instructed to follow up with PCP within one week and patient agrees Patient was instructed to follow-up with Dr. Boris Mckoy in [address] Mireles in 2 weeks pending stomach biopsy Patient instructed to follow-up with Dr. Hall in 1 to 2 weeks and he verbalized understanding and acceptance Physical exam Gen: patient is a AAOx3, no distress CVS: S1-S2, RRR, no murmur Lungs: B/L CTA, no wheezing Abdomen: soft, no distention, no tenderness, positive bowel sounds -Extremity: no leg edema or induration. Left AKA with dressing in place Time spent more than 35 minutes Patient Condition at Discharge: Good Plan - Discharge Summary Discharge Rx Participant: No New Discharge Prescriptions: No Action Acetaminophen [Tylenol Arthritis] 650 mg PO Q6H PRN PRN Reason: Mild Pain (Scale 1 To 3) Tamsulosin [Flomax] 0.4 mg PO DAILY Metoprolol Succinate (ER) [Toprol XL] 25 mg PO DAILY Calcium Carbonate/Vitamin D3 [Calcium 600 mg-Vit D3 5 mcg (200 unit)] 1 tab PO DAILY Amiodarone [Cordarone] 200 mg PO BID tab Famotidine [Pepcid] 20 mg PO DAILY tab Sodium Bicarbonate Tab 650 mg PO BID tab Atorvastatin [Lipitor] 40 mg PO HS tab Mirtazapine [Remeron] 15 mg PO HS tab Thiamine [Vitamin B-1] 100 mg PO DAILY #30 tab Naloxone HCl [Narcan] 4 mg NASAL ONCE PRN PRN Reason: overdose Citalopram Hydrobromide [CeleXA] 40 mg PO DAILY Rivaroxaban [Xarelto] 2.5 mg PO BID Aspirin EC [Ecotrin Low Dose] 81 mg PO DAILY Ascorbic Acid [Vitamin C] 500 mg PO DAILY Magnesium Oxide [Mag-Ox] 400 mg PO BID tab Gabapentin [Neurontin] 300 mg PO BID #4 cap Sennosides [Senokot] 8.6 mg PO BID tab oxyCODONE-APAP 7.5-325MG [Percocet 7.5-325 mg] 1 tab PO Q6H PRN PRN Reason: Moderate Pain (Scale 4 To 6) Discharge Medication List Atorvastatin [Lipitor] 40 mg PO HS tab 09/10/23 [Rx] Mirtazapine [Remeron] 15 mg PO HS tab 09/10/23 [Rx] Thiamine [Vitamin B-1] 100 mg PO DAILY #30 tab 09/19/23 [Rx] Acetaminophen [Tylenol Arthritis] 650 mg PO Q6H PRN 11/05/23 [History] Citalopram Hydrobromide [CeleXA] 40 mg PO DAILY 11/05/23 [History] Naloxone HCl [Narcan] 4 mg NASAL ONCE PRN 11/05/23 [History] Metoprolol Succinate (ER) [Toprol XL] 25 mg PO DAILY 11/22/23 [History] Rivaroxaban [Xarelto] 2.5 mg PO BID 11/22/23 [History] Tamsulosin [Flomax] 0.4 mg PO DAILY 11/22/23 [History] Ascorbic Acid [Vitamin C] 500 mg PO DAILY 12/05/23 [History] Aspirin EC [Ecotrin Low Dose] 81 mg PO DAILY 12/05/23 [History] Calcium Carbonate/Vitamin D3 [Calcium 600 mg-Vit D3 5 mcg (200 unit)] 1 tab PO DAILY 12/05/23 [History] Amiodarone [Cordarone] 200 mg PO BID tab 12/20/23 [Rx] Famotidine [Pepcid] 20 mg PO DAILY tab 12/20/23 [Rx] Gabapentin [Neurontin] 300 mg PO BID #4 cap 12/20/23 [Rx] Magnesium Oxide [Mag-Ox] 400 mg PO BID tab 12/20/23 [Rx] Sennosides [Senokot] 8.6 mg PO BID tab 12/20/23 [Rx] Sodium Bicarbonate Tab 650 mg PO BID tab 12/20/23 [Rx] oxyCODONE-APAP 7.5-325MG [Percocet 7.5-325 mg] 1 tab PO Q6H PRN 12/24/23 [History] Follow up Appointment(s)/Referral(s): Kierra Fisher DO [Primary Care Provider] - 1-2 days Marcos Payne DO [STAFF PHYSICIAN] - 2 Weeks Activity/Diet/Wound Care/Special Instructions: Daily dressing change with 4 x 4, Kerlix, secured with tape and then apply stump racker octave board and rigid dressing Activity as tolerated per recommendations from physical therapy May shower, no tub bathing or soaking.
[2024-01-09 12:25] LABS: Anisocytosis Slight; HGB 8.4 gm/dL (13.0-17.5); Hypochromasia Slight; MCV 87.2 fL (80.0-100.0); Mean Platelet Volume 7.8; Platelet Count 494 k/uL (150-450); RBC 3.09 m/uL (4.30-5.90); RDW 16.2 % (11.5-15.5); WBC 10.1 k/uL (3.8-10.6)
--- NOTE | 2024-01-09 13:27 | P.PN ---
Subjective Progress Note Date: 01/09/24 CHIEF COMPLAINT: Infection at surgical site HISTORY OF PRESENT ILLNESS: Patient is status post EGD revealing gastritis and a small sliding hiatal hernia. Patient denies any abdominal pain. Denies any blo od in his stools. HGB stable at 8.4 patient scheduled for discharge today to [facility]. PHYSICAL EXAM: VITAL SIGNS: Reviewed. GENERAL: Well-developed in no acute distress. ABDOMEN: Soft. Nondistended. Nontender. NEUROLOGIC: Alert and oriented. Cranial nerves II through XII grossly intact. ASSESSMENT: 1. Normocytic anemia 2. Severe protein calorie malnutrition 3. Infection at surgical site status post [id number] amputation 4. History of duodenal ulcer PLAN: -Patient can be discharged from surgical standpoint -Continue Protonix -Continue Ensure protein drink for protein calorie nutrition -Surgical service will sign off. Please call with any questions or concerns Physician Assessment Coordinator note has been reviewed by physician. Signing provider agrees with the documented findings, assessment, and plan of care. Objective - Vital Signs Vital signs: Vital Signs Temp 98.7 F 01/09/24 07:40 Pulse 71 01/09/24 07:40 Resp 18 01/09/24 07:40 BP 136/70 01/09/24 07:40 Pulse Ox 94 L 01/09/24 07:40 FiO2 21 01/01/24 09:25 Intake & Output 01/08/24 01/09/24 01/09/24 18:59 06:59 18:59 Intake Total 240 Output Total 875 300 Balance 240 -875 -300 Intake: Oral 240 Output: Urine 875 300 Other: Voiding Method Urinal Urinal Urinal # Voids 3 1 - Labs CBC & Chem 7: 01/09/24 11:16 01/08/24 08:32 Labs: Abnormal Lab Results - Last 24 Hours (Table) 01/08/24 01/08/24 01/09/24 Range/Units 08:32 08:32 11:16 WBC 12.35 H (4.50-10.00) X 10*3/uL RBC 3.13 L 3.09 L (4.40-5.60) X 10*6/uL Hgb 8.7 L 8.4 L (13.0-17.0) g/dL Hct 27.9 L 27.0 L (39.6-50.0) % MCHC 31.2 L (32.0-37.0) g/dL RDW 16.5 H 16.2 H (11.5-14.5) % Plt Count 465 H 494 H (140-440) X 10*3/uL Immature Gran # 0.11 H (0.00-0.04) X 10*3/uL Neutrophils # 8.24 H (1.80-7.70) X 10*3/uL Eosinophils # 1.61 H (0.04-0.35) X 10*3/uL Anion Gap 14.30 H (4.00-12.00) mmol/L Creatinine 2.0 H (0.6-1.5) mg/dL Est GFR (CKD-EPI) 38 L (>=60) BUN/Creatinine Ratio 10.60 L (12.00-20.00) Ratio Calcium 8.1 L (8.7-10.3) mg/dL
[2024-01-09 14:26] VITALS: BP 146/75; PULSE 75; TEMP 98.4
--- NOTE | 2024-01-09 16:16 | P.PN ---
Subjective Progress Note Date: 01/09/24 Principal diagnosis: Reason for follow-up is left BKA stump wound infection Patient is a 58-year-old male with a past medical history significant for COPD DVT right lower extremity in this patient dealing with the left foot gangrene cellulitis failing medical therapy and the patient is recently status post left below the knee amputation patient presented back to the hospital with left BKA surgical wound dehiscence and infection.Patient is status post left [id number] amputation completed on 01/02/2024,Patient did have an EGD with evidence of gastritis procedure completed on 01/07/2024 On today's evaluation that is 01/09/2024,the patient denies any fever or any ch ills, patient is breathing comfortably on 3 L with current oxygen, the patient denies chest pain shortness of breath and no significant cough, patient denies abdominal pain, no nausea vomiting or diarrhea. Pain to the left AKA stump is currently controlled and feeling better. Patient white count normalized to 10.1 Objective - Vital Signs Vital signs: Vital Signs Temp 98.7 F 01/09/24 07:40 Pulse 71 01/09/24 07:40 Resp 18 01/09/24 07:40 BP 136/70 01/09/24 07:40 Pulse Ox 94 L 01/09/24 07:40 FiO2 21 01/01/24 09:25 Intake & Output 01/08/24 01/09/24 01/09/24 18:59 06:59 18:59 Intake Total 240 Output Total 875 300 Balance 240 -875 -300 Intake: Oral 240 Output: Urine 875 300 Other: Voiding Method Urinal Urinal Urinal # Voids 3 1 - Exam GENERAL DESCRIPTION: Middle-aged male lying in bed in no distress RESPIRATORY SYSTEM: Unlabored breathing , decreased breath sounds at bases HEART: S1 S2 regular rate and rhythm , ABDOMEN: Soft , no tenderness EXTREMITIES: Left AKA stump incision healing well with no redness no drainage - Labs CBC & Chem 7: 01/09/24 11:16 01/08/24 08:32 Labs: Abnormal Lab Results - Last 24 Hours (Table) 01/08/24 01/08/24 Range/Units 08:32 08:32 WBC 12.35 H (4.50-10.00) X 10*3/uL RBC 3.13 L (4.40-5.60) X 10*6/uL Hgb 8.7 L (13.0-17.0) g/dL Hct 27.9 L (39.6-50.0) % MCHC 31.2 L (32.0-37.0) g/dL RDW 16.5 H (11.5-14.5) % Plt Count 465 H (140-440) X 10*3/uL Immature Gran # 0.11 H (0.00-0.04) X 10*3/uL Neutrophils # 8.24 H (1.80-7.70) X 10*3/uL Eosinophils # 1.61 H (0.04-0.35) X 10*3/uL Anion Gap 14.30 H (4.00-12.00) mmol/L Creatinine 2.0 H (0.6-1.5) mg/dL Est GFR (CKD-EPI) 38 L (>=60) BUN/Creatinine Ratio 10.60 L (12.00-20.00) Ratio Calcium 8.1 L (8.7-10.3) mg/dL Assessment and Plan (1) Infection due to ESBL-producing Klebsiella pneumoniae Status: Acute Code(s): A49.8 - OTHER BACTERIAL INFECTIONS OF UNSPECIFIED SITE; Z16.12 - EXTENDED SPECTRUM BETA LACTAMASE (ESBL) RESISTANCE SNOMED Code(s): 258546267 (2) Deep incisional surgical site infection Status: Acute Code(s): T81.42XA - INFCT FOL A PROCEDURE, DEEP INCISIONAL SURGICAL SITE, INIT SNOMED Code(s): 992578293 (3) Cellulitis of left leg Status: Acute Code(s): L03.116 - CELLULITIS OF LEFT LOWER LIMB SNOMED Code(s): 72599140949135131 Plan: 1patient presented to hospital with left BKA stump incision dehiscence cell ulitis will need to cover for the resistant gram-positive as well as gram- negative keeping in mind recent multiple admission to the hospital 2-patient with renal sufficiency high risk of nephrotoxicity from vancomycin 3-patient local culture currently growing ESBL Klebsiella as well as VRE and Achromobacter 4-patient is s/p left [id number] amputation completed on 01/02/2024 5-patient white count has normalized the patient left AKA incision looks clean with no evidence of any cellulitis with infected port removed patient not bacteremic recommending no antibiotic on discharge PICC line should be discontinued before discharge discussed with the nursing staff Dictation was produced using [employer] dictation software. please excuse any grammatical, word or spelling errors.
--- NOTE | 2024-01-14 13:28 | CDI ---
Documentation Clarification Form Date: 01/14/2024 01:14:05 PM From: Sheila Kenny RN, CCDS Phone: [phone] Admit Date: 12/24/2023 08:08:00 PM Patient Name: Star Alas Visit Number: [id number] Discharge Date: 01/09/2024 03:30:00 PM ATTENTION: The Clinical Documentation Specialists (CDI) and [facility] Coding Staff appreciate your assistance in clarifying documentation. Please respond to the clarification below the line at the bottom and electronically sign. The CDI & [facility] Coding staff will review the response and follow-up if needed. Please note: Queries are made part of the Legal Health Record. If you have any questions, please contact the author of this message via ITS. Dr. Rosa E Sheet Severe protein calorie malnutrition is documented in the surgery progress notes starting on 12/31 which may lack sufficient clinical evidence/support in the medical record. Additional clarification is requested. History/Risk Factors: PVD, recent BKA, COPD. Presented with left BKA site not healing well. Clinical Indicators: BMI 27.5, height 6 ft 3 in, weight 99.79 kg 12/23-01/05 Labs: Total protein 6.0-4.9-4.8-4.4 12/28 RD assessment: "good appetite with 75-100% of diet consumed. Overweight. No nutrition diagnosis at this time. No follow-up needed." 12/31 Surgery consult: "Severe protein calorie malnutrition." 01/08 Surgery: "Continue Ensure protein drink for protein calorie nutrition." Treatment: RD assessment - see above; Ensure BID Please clarify if severe protein calorie malnutrition is a valid diagnosis? [ x ] No, severe protein calorie malnutrition is ruled out [ ] Yes, severe protein calorie malnutrition is present as evidence by (additional clinical support): [ ] Other (please specify diagnosis) [ ] Unable to determine MTDD
== END 2024-01-09 15:30 | DRG 305 ==
LOC: EC 15:24 → 5NMEDONC 20:08 → 4SSUR 12-29 18:16
PROVIDERS: ADMIT Internal Medicine; ATTEND Internal Medicine
PROC: 05HC33Z Insertion of Infusion Device into Left Basilic Vein, Percutaneous Approach (ICD-10-PCS; 2023-12-28)
PROC: 30233N1 Transfusion of Nonautologous Red Blood Cells into Peripheral Vein, Percutaneous Approach (ICD-10-PCS; 2023-12-30)
PROC: 0Y6D0Z3 Detachment at Left Upper Leg, Low, Open Approach (ICD-10-PCS; principal; 2024-01-02 15:30)
PROC: 0DB78ZX Excision of Stomach, Pylorus, Via Natural or Artificial Opening Endoscopic, Diagnostic (ICD-10-PCS; 2024-01-07)
DX: T87.44 Infection of amputation stump, left lower extremity (principal); L03.116 Cellulitis of left lower limb; D50.9 Iron deficiency anemia, unspecified; G54.6 Phantom limb syndrome with pain; I70.262 Atherosclerosis of native arteries of extremities with gangrene, left leg; I99.8 Other disorder of circulatory system; N18.4 Chronic kidney disease, stage 4 (severe); I12.9 Hypertensive chronic kidney disease with stage 1 through stage 4 chronic kidney disease, or unspecified chronic kidney disease; I25.10 Atherosclerotic heart disease of native coronary artery without angina pectoris; J44.9 Chronic obstructive pulmonary disease, unspecified; N28.89 Other specified disorders of kidney and ureter; Y83.5 Amputation of limb(s) as the cause of abnormal reaction of the patient, or of later complication, without mention of misadventure at the time of the procedure; T87.81 Dehiscence of amputation stump; B96.1 Klebsiella pneumoniae [K. pneumoniae] as the cause of diseases classified elsewhere; B95.2 Enterococcus as the cause of diseases classified elsewhere; E11.22 Type 2 diabetes mellitus with diabetic chronic kidney disease; E11.52 Type 2 diabetes mellitus with diabetic peripheral angiopathy with gangrene; F32.A Depression, unspecified; K57.30 Diverticulosis of large intestine without perforation or abscess without bleeding; K29.70 Gastritis, unspecified, without bleeding; D63.1 Anemia in chronic kidney disease; F41.9 Anxiety disorder, unspecified; W06.XXXA Fall from bed, initial encounter; Z16.12 Extended spectrum beta lactamase (ESBL) resistance; Z79.01 Long term (current) use of anticoagulants; Z79.82 Long term (current) use of aspirin; Z79.899 Other long term (current) drug therapy; Z80.8 Family history of malignant neoplasm of other organs or systems; Z87.19 Personal history of other diseases of the digestive system; M25.552 Pain in left hip; M25.551 Pain in right hip; Z86.718 Personal history of other venous thrombosis and embolism; Z95.828 Presence of other vascular implants and grafts; Z87.11 Personal history of peptic ulcer disease; Z82.49 Family history of ischemic heart disease and other diseases of the circulatory system; Z68.27 Body mass index [BMI] 27.0-27.9, adult; Y92.230 Patient room in hospital as the place of occurrence of the external cause
CPT/HCPCS: 36415; 36430; 36573; 43239; 71045; 73502; 80048; 80053; 80202; 82565; 82607; 82728; 82746; 83540; 83550; 83605; 85025; 85027; 85610; 85730; 86140; 86850; 86900; 86901; 86920; 87040; 87070; 87077; 87186; 87205; 88305; 93005; 94760; 96365; 96366; 96368; 96375; 99285

== ENCOUNTER 2024-01-11 01:43 | Inpatient (IN) | payer OTHER ==
[2024-01-11] MEDS: TOPICAL SKIN ADHESIVE 1 EACH AMP TOPICAL ONE (02:05)
[2024-01-11] MEDS: SODIUM CHLORIDE 0.9% 1,000 ML IV ONE (02:05)
[2024-01-11 03:07] LABS: ALT 15 U/L (4-49); AST 33 U/L (17-59); African American GFR (CKD) 65 (>60 ml/min/1.73 sqM); Albumin 2.2 g/dL (3.5-5.0); Alkaline Phosphatase 110 U/L (38-126); Anion Gap 5 mmol/L; Blood Urea Nitrogen 20 mg/dL (9-20); Calcium 7.7 mg/dL (8.4-10.2); Carbon Dioxide 25 mmol/L (22-30); Chloride 104 mmol/L (98-107); Glucose 79 mg/dL (74-99); Non-African American GFR(CKD) 56 (>60 ml/min/1.73 sqM); Potassium 4.3 mmol/L (3.5-5.1); Sodium 134 mmol/L (137-145); Total Bilirubin 0.7 mg/dL (0.2-1.3); Total Protein 5.2 g/dL (6.3-8.2)
--- NOTE | 2024-01-11 03:12 | CT ---
EXAM: CT Head Without Intravenous Contrast CLINICAL HISTORY: ITS.REASON CT Reason: fall on thinners TECHNIQUE: Axial computed tomography images of the head/brain without intravenous contrast. CTDI is 25.8 mGy and DLP is 801.7 mGy-cm. This CT exam was performed using one or more of the following dose reduction techniques: automated exposure control, adjustment of the mA and/or kV according to patient size, and/or use of iterative reconstruction technique. COMPARISON: CT head on 12/16/2023 FINDINGS: Brain: No acute infarct or hemorrhage identified. No extra-axial fluid collection. No mass effect or midline shift. Scattered areas of hypoattenuation in the supratentorial white matter likely represent chronic small vessel ischemic changes. Ventricles and sulci: Prominence of the ventricles and sulci is likely secondary to cerebral volume loss. Bones: Normal. No bony lesion or acute fracture. Subcutaneous tissues: Left frontotemporal soft tissue swelling. Sinuses: Minimal mucosal thickening in the left maxillary sinus. Small polyp versus mucous retention cyst in the right ethmoid air cells. Mastoid air cells: Normal. Orbits: Grossly unremarkable. Other: Atherosclerotic calcifications in the intracranial vasculature. Dental disease. IMPRESSION: 1. No acute intracranial abnormality. 2. Chronic small vessel ischemic changes and cerebral volume loss. EXAM: CT Cervical Spine Without Intravenous Contrast CLINICAL HISTORY: ITS.REASON CT Reason: fall on thinners TECHNIQUE: Axial computed tomography images of the cervical spine without intravenous contrast. CTDI is 16.6 mGy and DLP is 516.1 mGy-cm. This CT exam was performed using one or more of the following dose reduction techniques: automated exposure control, adjustment of the mA and/or kV according to patient size, and/or use of iterative reconstruction technique. COMPARISON: None FINDINGS: Bones: Normal alignment. No acute fracture or bony lesion. Disc spaces: Mild retrolisthesis of C5 on C6. Degenerative changes of the spine. Soft tissues: Normal. Other: Atherosclerotic changes of the vasculature. Bilateral pleural effusions partially visualized. Severe groundglass opacities and consolidations throughout the visualized upper lungs. IMPRESSION: No acute traumatic abnormality.
[2024-01-11 03:26] LABS: Basophils % (A) 0 %; Eosinophils # (A) 0.7 k/uL (0-0.7); Eosinophils % (A) 6 %; HGB 8.8 gm/dL (13.0-17.5); Hypochromasia Slight; Lymphocytes # (A) 0.9 k/uL (1.0-4.8); Lymphocytes % (A) 8 %; MCH 27.1 pg (25.0-35.0); MCHC 31.3 g/dL (31.0-37.0); MCV 86.8 fL (80.0-100.0); Mean Platelet Volume 7.7; Monocytes # (A) 0.7 k/uL (0-1.0); Monocytes % (A) 7 %; Neutrophils # (A) 8.3 k/uL (1.3-7.7); Neutrophils % (A) 77 %; Platelet Count 523 k/uL (150-450); RBC 3.23 m/uL (4.30-5.90); WBC 10.8 k/uL (3.8-10.6)
--- NOTE | 2024-01-11 03:35 | CT ---
EXAM: CT Thoracic Spine Without Intravenous Contrast CLINICAL HISTORY: ITS.REASON CT Reason: fall, pain TECHNIQUE: Axial computed tomography images of the thoracic spine without intravenous contrast. CTDI is 34.4 mGy and DLP is 2325 mGy-cm. This CT exam was performed using one or more of the following dose reduction techniques: automated exposure control, adjustment of the mA and/or kV according to patient size, and/or use of iterative reconstruction technique. COMPARISON: None FINDINGS: Bones: Normal alignment. No acute fracture or bony lesion. Old right- sided rib fractures. Disc spaces: No subluxation. Degenerative changes of the spine. Soft tissues: Normal. Other: Moderate bilateral pleural effusions. Severe groundglass opacities and patchy consolidations throughout the lungs, worst in the upper lobes. Emphysematous changes. Atherosclerotic changes of the vasculature. Nonspecific prominent mediastinal lymph nodes. IMPRESSION: No acute traumatic abnormality. Moderate bilateral pleural effusions. Severe groundglass opacities and patchy consolidations throughout the lungs, worst in the upper lobes. Emphysematous changes. EXAM: CT Lumbar Spine Without Intravenous Contrast CLINICAL HISTORY: ITS.REASON CT Reason: fall, pain TECHNIQUE: Axial computed tomography images of the lumbar spine without intravenous contrast. CTDI is 34.4 mGy and DLP is 2325 mGy-cm. This CT exam was performed using one or more of the following dose reduction techniques: automated exposure control, adjustment of the mA and/or kV according to patient size, and/or use of iterative reconstruction technique. COMPARISON: None FINDINGS: Bones: Right convex curvature of the lumbar spine. No acute fracture or bony lesion. Subacute or chronic-appearing fracture deformity of the right L3 transverse process. Disc spaces: Degenerative changes of the spine. Grade 1 anterolisthesis of L4 on L5. Soft tissues: Normal. Other: Atherosclerotic changes of the vasculature. Diverticulosis. Large amount of stool in the colon..
--- NOTE | 2024-01-11 03:37 | CT ---
EXAM: CT Maxillofacial Without Intravenous Contrast CLINICAL HISTORY: ITS.REASON CT Reason: fall TECHNIQUE: Axial computed tomography images of the face without intravenous contrast. CTDI is 16.6 mGy and DLP is 516.1 mGy-cm. This CT exam was performed using one or more of the following dose reduction techniques: automated exposure control, adjustment of the mA and/or kV according to patient size, and/or use of iterative reconstruction technique. COMPARISON: None FINDINGS: Bones/joints: No acute facial fracture identified. Soft tissues: Left frontotemporal soft tissue swelling. Vasculature: Atherosclerotic changes of the vasculature. Orbits: Unremarkable. Sinuses: Minimal mucosal thickening in the left frontal sinus. Small polyp versus mucous retention cyst in the right ethmoid air cells. No air-fluid levels. Dental: Dental disease. IMPRESSION: 1. No acute facial fracture identified. 2. Left frontotemporal soft tissue swelling.
[2024-01-11 04:08] LABS: INR 1.1 (<1.2); Prothrombin Time 11.5 sec (10.0-12.5)
--- NOTE | 2024-01-11 04:14 | XR ---
EXAM: XR Chest, 1 View CLINICAL HISTORY: ITS.REASON XR Reason: fall TECHNIQUE: Frontal view of the chest. COMPARISON: Chest radiograph on 12/28/2023 FINDINGS: Hardware: None. Lungs/pleura: Extensive opacities throughout the lungs. Heart/mediastinum: Normal. No cardiomegaly. Soft tissues: Unremarkable. Bones: No acute fracture. Upper abdomen: Normal. IMPRESSION: Extensive opacities throughout the lungs may represent infectious/inflammatory process and/or edema.
--- NOTE | 2024-01-11 04:14 | XR ---
EXAM: XR Pelvis, 1 or 2 Views CLINICAL HISTORY: ITS.REASON XR Reason: pain TECHNIQUE: Frontal view of the pelvis. COMPARISON: None FINDINGS: Bones/joints: No displaced fracture or dislocation identified. Mild degenerative changes of the hips. No bony lesion. Soft tissues: Normal. No radiopaque foreign body identified. Other: Vascular calcifications. Stents in the proximal right femur partially visualized. IMPRESSION: No displaced fracture or dislocation identified.
[2024-01-11] MEDS: IPRATROPIUM-ALBUTEROL 3 ML NEB INHALATION STA (04:54)
[2024-01-11] MEDS: MORPHINE SULFATE 4 MG/ML SYRINGE IVP STA ×2 (04:55→05:05)
[2024-01-11] MEDS: AZITHROMYCIN 500 MG in SODIUM CHLORIDE 0.9% 250 ML IVPB STA (04:55)
[2024-01-11] MEDS: methylPREDNISolone SOD SUCCI 125 MG/2 ML VIAL IV STA (04:55)
[2024-01-11] MEDS ORDERED: NALOXONE 0.4 MG/ML 1 ML VIAL IV PRN (04:57)
[2024-01-11] MEDS ORDERED: ONDANSETRON 4 MG/2 ML VIAL IVP PRN (04:57)
--- NOTE | 2024-01-11 05:00 | ED ---
General Adult HPI - General Chief complaint: Fall Stated complaint: Fall Time Seen by Provider: 01/11/24 01:45 Source: patient, RN notes reviewed, old records reviewed Mode of arrival: EMS Limitations: no limitations - History of Present Illness Initial comments: Is a 58-year-old male who presents emergency department complaining of a fall on blood thinners. Patient was looking for his urinal and rolled out of bed and fell out of bed at his rehab facility. Struck his head on the ground. Patient is on Xarelto for atrial fibrillation. Patient also recently had a left lower extremity amputation below could be at our facility. Has been progressing well. Endorses facial pain. Endorses a little bit of low back pain which is somewhat chronic for him as well. No other acute complaints at this time. Presents for further evaluation. Unknown LOC. Patient was found initially to be hypoxic upon arrival and was placed on nasal cannula oxygen 2 L. Was 89% on room air. States he usually does not require oxygen but lately has required it. Has noticed right lower extremity edema as well. - Related Data Home Medications Medication Instructions Recorded Confirmed Acetaminophen [Tylenol Arthritis] 650 mg PO Q6H PRN 11/05/23 12/24/23 Citalopram Hydrobromide [CeleXA] 40 mg PO DAILY 11/05/23 12/24/23 Naloxone HCl [Narcan] 4 mg NASAL ONCE PRN 11/05/23 12/24/23 Metoprolol Succinate (ER) [Toprol 25 mg PO DAILY 11/22/23 12/24/23 XL] Rivaroxaban [Xarelto] 2.5 mg PO BID 11/22/23 12/24/23 Tamsulosin [Flomax] 0.4 mg PO DAILY 11/22/23 12/24/23 Ascorbic Acid [Vitamin C] 500 mg PO DAILY 12/05/23 12/24/23 Aspirin EC [Ecotrin Low Dose] 81 mg PO DAILY 12/05/23 12/24/23 Calcium Carbonate/Vitamin D3 1 tab PO DAILY 12/05/23 12/24/23 [Calcium 600 mg-Vit D3 5 mcg (200 unit)] Previous Rx's Medication Instructions Recorded Atorvastatin [Lipitor] 40 mg PO HS tab 09/10/23 Mirtazapine [Remeron] 15 mg PO HS tab 09/10/23 Thiamine [Vitamin B-1] 100 mg PO DAILY #30 tab 09/19/23 Amiodarone [Cordarone] 200 mg PO BID tab 12/20/23 Famotidine [Pepcid] 20 mg PO DAILY tab 12/20/23 Gabapentin [Neurontin] 300 mg PO BID #4 cap 12/20/23 Magnesium Oxide [Mag-Ox] 400 mg PO BID tab 12/20/23 Sennosides [Senokot] 8.6 mg PO BID tab 12/20/23 Sodium Bicarbonate Tab 650 mg PO BID tab 12/20/23 Pantoprazole [Protonix] 40 mg PO AC-BRKFST tab 01/09/24 oxyCODONE-APAP 7.5-325MG [Percocet 1 tab PO Q12H PRN #10 tab 01/09/24 7.5-325 mg] Allergies Allergy/AdvReac Type Severity Reaction Status Date / Time No Known Allergies Allergy Verified 12/24/23 16:46 Review of Systems ROS Statement: Those systems with pertinent positive or pertinent negative responses have been documented in the HPI. Review of Systems: CONST: Denies fever EYES: Denies blurry vision ENT: Denies nasal congestion C/V: Denies Chest pain RESP: Endorses shortness of breath GI: Denies abdominal pain : Denies dysuria SKIN: Denies rash. MSK: Endorses back pain, face pain. NEURO: Denies headache ROS Other: All systems not noted in ROS Statement are negative. Past Medical History Past Medical History: COPD, Vascular Disorder Additional Past Medical History / Comment(s): PVD, DVT R leg-recent R femoral popliteal bypass at [facility] 02/22/17, History of Any Multi-Drug Resistant Organisms: MRSA Date of last positivie culture/infection: 11/06/23 MRSA MDRO Source:: Left Leg Past Surgical History: Orthopedic Surgery Additional Past Surgical History / Comment(s): R fem pop bypass 02/22/17 [facility], bilateral knee arthroscopic surgeries. 12/17/23 L BTK amputation Past Anesthesia/Blood Transfusion Reactions: No Reported Reaction Additional Past Anesthesia/Blood Transfusion Reaction / Comment(s): . Past Psychological History: Anxiety, Depression Smoking Status: Current every day smoker Past Alcohol Use History: Daily, Heavy Past Drug Use History: None Reported - Past Family History Mother Family Medical History: Cancer, Hyperlipidemia Additional Family Medical History / Comment(s): Mother had skin cancer. She is living. Father Family Medical History: Hyperlipidemia, Hypertension Additional Family Medical History / Comment(s): Father has heart condition. General Exam - General Exam Comments Initial Comments: General: Appears in no acute distress. HEAD: Forehead abrasion over the left forehead as well as a nongaping facial laceration lateral to the right eye. Negative Goldman sign. Negative raccoon eyes. EYES: PERRLA, EOMI, conjunctiva normal, no discharge. Pulls 3 mm and equal bilaterally. ENT: Hearing grossly intact, normal oropharynx. RESPIRATORY: Bilateral end expiratory wheezing as well as coarse breath sounds. Hypoxia on room air. No significant increased work of breathing. C/V: Irregular rate and rhythm. S1 and S2 auscultated, right lower extremity p itting edema, peripheral pulses 2+ and intact throughout ABD: Abd is soft, nontender, nondistended EXT: Some mild thoracic and lumbar spine tenderness to palpation in the midline without any obvious deformity. No significant cervical spine tenderness to palpation. Pelvis is stable. Left BKA present. Wound appears within acceptable limits. SKIN: Abrasion over the left forehead. Small approximate 2 cm laceration lateral to the right eye that requires closure. NEURO: Alert and oriented x 4. Cranial nerves II-XII intact. No focal sensory or strength deficits. GCS of 15. Limitations: no limitations Course Vital Signs 01/11/24 01/11/24 01/11/24 01:46 03:00 04:00 Temperature 98 F Pulse Rate 68 64 67 Respiratory 18 16 16 Rate Blood Pressure 165/89 157/80 148/78 O2 Sat by Pulse 97 98 89 L Oximetry 01/11/24 01/11/24 01/11/24 04:54 05:00 05:04 Temperature 97.4 F L Pulse Rate 101 H 71 100 Respiratory 18 Rate Blood Pressure 146/75 O2 Sat by Pulse 98 Oximetry Medical Decision Making - Medical Decision Making Was pt. sent in by a medical professional or institution (, PA, [facility], urgent care, hospital, or half-way...) When possible be specific @ -No Did you speak to anyone other than the patient for history (EMS, parent, family, police, friend...)? What history was obtained from this source @ -No Did you review nursing and triage notes (agree or disagree)? Why? @ -I reviewed and agree with nursing and triage notes Were old charts reviewed (outside hosp., previous admission, EMS record, old EKG, old radiological studies, urgent care reports/EKG's, half-way records)? Report findings @ -Old charts reviewed which revealed the recent admission for left lower ex tremity BKA as well as infection of the stump. Differential Diagnosis (chest pain, altered mental status, abdominal pain women, abdominal pain men, vaginal bleeding, weakness, fever, dyspnea, syncope, headache, dizziness, GI bleed, back pain, seizure, CVA, palpatations, mental health, musculoskeletal)? @ -Differential Musculoskeletal Muscular strain, contusion, ligament sprain, fracture, arthritis, septic arthritis, bursitis, cellulitis, muscle spasm, nerve compression, DVT, arterial occlusion, herpes zoster, electrolyte abnormality, tumor.... This is not meant to be in all inclusive list Differential Dyspnea: Coronary syndrome, arrhythmia, tamponade, asthma, COPD, pulmonary embolism, pne umonia, pneumothorax, pulmonary effusion, anaphylaxis, diabetic ketoacidosis, flailed chest, pulmonary contusion, diaphragmatic rupture, anemia, neuromuscular, this is not meant to be an all-inclusive list. EKG interpreted by me (3pts min.). @ -As above X-rays interpreted by me (1pt min.). @ -Pelvis x-ray negative for any obvious traumatic injury. Chest x-ray does reveal pulmonary vascular congestion versus infiltrate. The pattern appears more CHF. CT interpreted by me (1pt min.). @ -CT brain, spine, face negative for any obvious acute traumatic injury other than the soft tissue swelling over the forehead at the site of the abrasion and laceration. U/S interpreted by me (1pt. min.). @ -None done What testing was considered but not performed or refused? (CT, X-rays, U/S, labs)? Why? @ -None What meds were considered but not given or refused? Why? @ -None Did you discuss the management of the patient with other professionals (professionals i.e. , PA, [facility], lab, RT, psych nurse, social services analyst, supervisor detasseling crew, teacher, security officers and guards, child support case officer)? Give summary @ -No Was smoking cessation discussed for >3mins.? @ -No Was critical care preformed (if so, how long)? @ -Yes, 34 minutes. Were there social determinants of health that impacted care today? How? (Homelessness, low income, unemployed, alcoholism, drug addiction, transportation, low edu. Level, literacy, decrease access to med. care, senior care, rehab)? @ -No Was there de-escalation of care discussed even if they declined (Discuss DNR or withdrawal of care, Hospice)? DNR status @ -No What co-morbidities impacted this encounter? (DM, HTN, Smoking, COPD, CAD, Cancer, CVA, ARF, Chemo, Hep., AIDS, mental health diagnosis, sleep apnea, morbid obesity)? @ -None Was patient admitted / discharged? Hospital course, mention meds given and route, prescriptions, significant lab abnormalities, going to OR and other pertinent info. @ -Based on patient's presentation and physical exam, presents as a fall from not above ground level on blood thinners with questionable LOC. Does not meet trauma activation criteria. We will obtain CT imaging with spine, brain, facial bones as well as chest and pelvis x-ray. Patient also found to be hypoxic which is atypical. We will obtain workup for this as well. EKG shows no signs of acute ischemia. Patient's laboratory studies remarkable for chronic anemia which is stable, elevated BNP of 13,000 which is atypical for the patient. Viral swabs negative. Imaging remarkable for bilateral pulmonary vascular congestion as well as soft tissue swelling of the face at the site of the abrasion and laceration but no other obvious findings. I did offer closure of the patient's laceration on the face with stitches however patient prefers skin glue. This was completed by myself. He tolerated the procedure well. Patient is up-to-date on tetanus. I did the patient. Echo ordered. Patient started on IV Lasix. As he is wheezy he was treated for COPD and we will continue treatment for this as well. Consider antibiotics however I believe this is likely related to CHF and these were canceled. Patient will be admitted at this time. Cardiology consulted. Pulmonology consulted. I spoke with the admitting team, [facility] who accepted the admission. Undiagnosed new problem with uncertain prognosis? @ -No Drug Therapy requiring intensive monitoring for toxicity (Heparin, Nitro, Insulin, Cardizem)? @ -No Were any procedures done? @ -Laceration repair with Dermabond Diagnosis/symptom? @ -CHF, hypoxic respiratory failure Acute, or Chronic, or Acute on Chronic? @ -Acute Uncomplicated (without systemic symptoms) or Complicated (systemic symptoms)? @ -Complicated Side effects of treatment? @ -No Exacerbation, Progression, or Severe Exacerbation? @ -No Poses a threat to life or bodily function? How? (Chest pain, [place], IA, pneumonia, PE, COPD, DKA, ARF, appy, cholecystitis, CVA, Diverticulitis, Homicidal, Suicidal, threat to staff... and all critical care pts) @ -Yes Diagnosis/symptom? @ -Fall, abrasion, laceration Acute, or Chronic, or Acute on Chronic? @ -Acute Uncomplicated (without systemic symptoms) or Complicated (systemic symptoms)? @ -Uncomplicated Side effects of treatment? @ -None Exacerbation, Progression, or Severe Exacerbation] @ -No Poses a threat to life or bodily function? @ -No - Lab Data Result diagrams: 01/11/24 02:27 01/11/24 02:27 Lab Results 01/11/24 01/11/24 01/11/24 Range/Units 02:27 02:27 02:27 WBC 10.8 H (3.8-10.6) k/uL RBC 3.23 L (4.30-5.90) m/uL Hgb 8.8 L (13.0-17.5) gm/dL Hct 28.0 L (39.0-53.0) % MCV 86.8 (80.0-100.0) fL MCH 27.1 (25.0-35.0) pg MCHC 31.3 (31.0-37.0) g/dL RDW 16.0 H (11.5-15.5) % Plt Count 523 H (150-450) k/uL MPV 7.7 Neutrophils % 77 % Lymphocytes % 8 % Monocytes % 7 % Eosinophils % 6 % Basophils % 0 % Neutrophils # 8.3 H (1.3-7.7) k/uL Lymphocytes # 0.9 L (1.0-4.8) k/uL Monocytes # 0.7 (0-1.0) k/uL Eosinophils # 0.7 (0-0.7) k/uL Basophils # 0.0 (0-0.2) k/uL Hypochromasia Slight PT 11.5 (10.0-12.5) sec INR 1.1 (<1.2) APTT 28.0 (22.0-30.0) sec Sodium 134 L (137-145) mmol/L Potassium 4.3 (3.5-5.1) mmol/L Chloride 104 (98-107) mmol/L Carbon Dioxide 25 (22-30) mmol/L Anion Gap 5 mmol/L BUN 20 (9-20) mg/dL Creatinine 1.36 H (0.66-1.25) mg/dL Est GFR (CKD-EPI)AfAm 65 (>60 ml/min/1.73 sqM) Est GFR (CKD-EPI)NonAf 56 (>60 ml/min/1.73 sqM) Glucose 79 (74-99) mg/dL Calcium 7.7 L (8.4-10.2) mg/dL Total Bilirubin 0.7 (0.2-1.3) mg/dL AST 33 (17-59) U/L ALT 15 (4-49) U/L Alkaline Phosphatase 110 (38-126) U/L NT-Pro-B Natriuret Pep pg/mL Total Protein 5.2 L (6.3-8.2) g/dL Albumin 2.2 L (3.5-5.0) g/dL Influenza Type A (PCR) (Not Detectd) Influenza Type B (PCR) (Not Detectd) RSV (PCR) (Not Detectd) SARS-CoV-2 (PCR) (Not Detectd) 01/11/24 01/11/24 Range/Units 02:27 04:02 WBC (3.8-10.6) k/uL RBC (4.30-5.90) m/uL Hgb (13.0-17.5) gm/dL Hct (39.0-53.0) % MCV (80.0-100.0) fL MCH (25.0-35.0) pg MCHC (31.0-37.0) g/dL RDW (11.5-15.5) % Plt Count (150-450) k/uL MPV Neutrophils % % Lymphocytes % % Monocytes % % Eosinophils % % Basophils % % Neutrophils # (1.3-7.7) k/uL Lymphocytes # (1.0-4.8) k/uL Monocytes # (0-1.0) k/uL Eosinophils # (0-0.7) k/uL Basophils # (0-0.2) k/uL Hypochromasia PT (10.0-12.5) sec INR (<1.2) APTT (22.0-30.0) sec Sodium (137-145) mmol/L Potassium (3.5-5.1) mmol/L Chloride (98-107) mmol/L Carbon Dioxide (22-30) mmol/L Anion Gap mmol/L BUN (9-20) mg/dL Creatinine (0.66-1.25) mg/dL Est GFR (CKD-EPI)AfAm (>60 ml/min/1.73 sqM) Est GFR (CKD-EPI)NonAf (>60 ml/min/1.73 sqM) Glucose (74-99) mg/dL Calcium (8.4-10.2) mg/dL Total Bilirubin (0.2-1.3) mg/dL AST (17-59) U/L ALT (4-49) U/L Alkaline Phosphatase (38-126) U/L NT-Pro-B Natriuret Pep 91830 pg/mL Total Protein (6.3-8.2) g/dL Albumin (3.5-5.0) g/dL Influenza Type A (PCR) Not Detected (Not Detectd) Influenza Type B (PCR) Not Detected (Not Detectd) RSV (PCR) Not Detected (Not Detectd) SARS-CoV-2 (PCR) Not Detected (Not Detectd) - EKG Data -: EKG Interpreted by Me EKG Comments: 12-lead Electrocardiogram Interpretation Note EKG was reviewed and interpreted by myself. 12-lead ECG performed at 0515 is interpreted by me as revealing normal sinus rhythm at a rate of 69 beats per minute. [place] is normal. [place] interval is 131 ms, QRS duration is 91 ms, QTc is 426 ms.. There were no ST or T wave abnormalities to suggest myocardial ischemi a or injury. R wave progression across the precordium was satisfactory. By my interpretation this EKG is non-diagnostic for acute ischemia. Critical Care Time Critical Care Time: Yes Total Critical Care Time: 34 Disposition Clinical Impression: Fall, CHF (congestive heart failure), Hypoxic respiratory failure, Laceration, Abrasion Disposition: ADMITTED IP TO THIS HOSP Condition: Stable Time of Disposition: 04:57
[2024-01-11] MEDS: FUROSEMIDE 10 MG/ML 4 ML VIAL IV STA (05:08)
--- NOTE | 2024-01-11 08:07 | P.CNPUL ---
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 Of note, patient has had numerous hospitalizations since August,. He has had issues with left foot gangrene, underwent left below the knee amputation on 12/14/2023 at our facility. Left stump did not heal and became infected, subsequently had a left [id number] amputation January 02, 2024. Patient has been recovering/rehabbing at [facility]. While at the [facility], patient was trying to get his urinal and fell out of bed. Had head trauma and has a left forehead abrasion as well as a right sided laceration. Denies losing cons ciousness. He does have a headache. Denies any vision changes. No focal deficits. The patient is on anticoagulation with Xarelto. On arrival to the emergency department, he did have a CT of the brain and C-spine which did not show any acute acute intracranial hemorrhage or mass effect or cervical spine fracture. Facial CT does not show any acute facial fracture there is frontotemporal soft tissue swelling on the left. Of note, patient has been having progressively worsening shortness of breath. Associated right lower extremity swelling. Admits orthopnea. Denies PND. Denies chest pain, heart palpitations, syncope. Denies infectious symptoms such as fever, cough, sputum production. He was hypoxic on arrival to the emergency department and placed on 2 L/min nasal cannula. Chest x-ray demonstrates pulmonary edema with batwing appearance. NT proBNP elevated at 13,400. He has been started on Lasix 40 mg twice daily. He is diuresing well, and is already diuresed 2 L of urine. Most recent echocardiogram from 12/06/2023 estimates a mildly reduced left ventricular ejection fraction of 40 to 45% CBC: WBC count 10.8, hemoglobin 8.8, hematocrit 28, platelets 523. BMP: Sodium 134, potassium 4.3, chloride 104, serum bicarb 25, BUN 20, creatinine 1.36, glucose 79. LFTs not elevated. Negative for influenza, RSV, COVID. He is afebrile. Hemodynamically stable. Review of Systems REVIEW OF SYSTEMS: CONSTITUTIONAL: Denies any recent significant weight loss or weight gain. EYES: Denies change in vision. EARS, NOSE, MOUTH, THROAT: Denies headaches, denies sore throat. CARDIOVASCULAR: Denies chest pain, palpitations or syncopal episodes. RESPIRATORY: See HPI GASTROINTESTINAL: Denies change in appetite, abdominal pain, nausea and vomiting, or diarrhea GENITOURINARY: Denies hematuria, denies infections. MUSKULOSKELETAL: Denies pain, denies swelling. INTEGUMENTARY: Denies rash, denies eczema. NEUROLOGICAL: Denies recent memory loss, no recent seizure activity. PSYCHIATRIC: Denies anxiety, denies depression. HEMATOLOGIC/LYMPHATIC: Denies anemia, denies enlarged lymph node Past Medical History Past Medical History: COPD, Vascular Disorder Additional Past Medical History / Comment(s): PVD, DVT R leg-recent R femoral popliteal bypass at [facility] 02/22/17, History of Any Multi-Drug Resistant Organisms: MRSA Date of last positivie culture/infection: 11/06/23 MRSA MDRO Source:: Left Leg Past Surgical History: Orthopedic Surgery Additional Past Surgical History / Comment(s): R fem pop bypass 02/22/17 [facility], bilateral knee arthroscopic surgeries. 12/17/23 L BTK amputation Past Anesthesia/Blood Transfusion Reactions: No Reported Reaction Additional Past Anesthesia/Blood Transfusion Reaction / Comment(s): . Past Psychological History: Anxiety, Depression Smoking Status: Current every day smoker Past Alcohol Use History: Daily, Heavy Past Drug Use History: None Reported - Past Family History Mother Family Medical History: Cancer, Hyperlipidemia Additional Family Medical History / Comment(s): Mother had skin cancer. She is living. Father Family Medical History: Hyperlipidemia, Hypertension Additional Family Medical History / Comment(s): Father has heart condition. Medications and Allergies Home Medications Medication Instructions Recorded Confirmed Type Atorvastatin [Lipitor] 40 mg PO HS tab 09/10/23 01/11/24 Rx Mirtazapine [Remeron] 15 mg PO HS tab 09/10/23 01/11/24 Rx Thiamine [Vitamin B-1] 100 mg PO DAILY #30 tab 09/19/23 01/11/24 Rx Acetaminophen [Tylenol Arthritis] 650 mg PO Q6H PRN 11/05/23 01/11/24 History Citalopram Hydrobromide [CeleXA] 40 mg PO DAILY 11/05/23 01/11/24 History Naloxone HCl [Narcan] 4 mg NASAL ONCE PRN 11/05/23 01/11/24 History Metoprolol Succinate (ER) [Toprol 25 mg PO DAILY 11/22/23 01/11/24 History XL] Rivaroxaban [Xarelto] 2.5 mg PO BID 11/22/23 01/11/24 History Tamsulosin [Flomax] 0.4 mg PO DAILY 11/22/23 01/11/24 History Ascorbic Acid [Vitamin C] 500 mg PO DAILY 12/05/23 01/11/24 History Aspirin EC [Ecotrin Low Dose] 81 mg PO DAILY 12/05/23 01/11/24 History Calcium Carbonate/Vitamin D3 1 tab PO DAILY 12/05/23 01/11/24 History [Calcium 600 mg-Vit D3 5 mcg (200 unit)] Amiodarone [Cordarone] 200 mg PO BID tab 12/20/23 01/11/24 Rx Gabapentin [Neurontin] 300 mg PO BID #4 cap 12/20/23 01/11/24 Rx Magnesium Oxide [Mag-Ox] 400 mg PO BID tab 12/20/23 01/11/24 Rx Sennosides [Senokot] 8.6 mg PO BID tab 12/20/23 01/11/24 Rx Sodium Bicarbonate Tab 650 mg PO BID tab 12/20/23 01/11/24 Rx Pantoprazole [Protonix] 40 mg PO AC-BRKFST tab 01/09/24 01/11/24 Rx oxyCODONE-APAP 7.5-325MG [Percocet 1 tab PO Q12H PRN #10 tab 01/09/24 01/11/24 Rx 7.5-325 mg] Allergies Allergy/AdvReac Type Severity Reaction Status Date / Time No Known Allergies Allergy Verified 01/11/24 09:02 Physical Exam Vitals: Vital Signs Temp Pulse Resp BP Pulse Ox 01/11/24 05:04 100 01/11/24 05:00 97.4 F L 71 18 146/75 98 01/11/24 04:54 101 H 01/11/24 04:00 67 16 148/78 89 L 01/11/24 03:00 64 16 157/80 98 01/11/24 01:46 98 F 68 18 165/89 97 Intake and Output 01/10/24 01/11/24 01/11/24 22:59 06:59 14:59 Output Total 1600 Balance -1600 Output: Urine 1600 Other: Weight 90.718 kg GENERAL EXAM: Alert, 58-year-old white male, appearing older than stated age, on 2 L/min nasal cannula, no respiratory distress, comfortable in no apparent di stress. HEAD: Normocephalic. Right forehead laceration and left forehead abrasion EYES: Normal reaction of pupils, equal size. NOSE: Clear with pink turbinates. THROAT: No erythema or exudates. NECK: No masses, no JVD. CHEST: No chest wall deformity. LUNGS: Equal air entry with bilateral posterior inspiratory rales. On 2 L/min nasal cannula. No conversational dyspnea or accessory muscle use.. CVS: S1 and S2 normal with no audible murmur, regular rhythm. No extra heart sounds ABDOMEN: No hepatosplenomegaly, active bowel sounds, no guarding or rigidity. SPINE: No scoliosis or deformity SKIN: No rashes CENTRAL NERVOUS SYSTEM: No focal deficits, tone is normal in all 4 extremities. EXTREMITIES: Mild right lower extremity nonpitting edema. Left AKA incision is approximated with danna, no erythema, wound drainage. No clubbing, or cyanosis. Peripheral pulses are intact. Results - Laboratory Findings CBC and BMP: 01/11/24 02:27 01/11/24 02:27 PT/INR, D-dimer PT 11.5 sec (10.0-12.5) 01/11/24 02:27 INR 1.1 (<1.2) 01/11/24 02:27 Abnormal lab findings: Abnormal Labs 01/11/24 01/11/24 02:27 02:27 WBC 10.8 H RBC 3.23 L Hgb 8.8 L Hct 28.0 L RDW 16.0 H Plt Count 523 H Neutrophils # 8.3 H Lymphocytes # 0.9 L Sodium 134 L Creatinine 1.36 H Calcium 7.7 L Total Protein 5.2 L Albumin 2.2 L - Diagnostic Findings Chest x-ray: image reviewed Assessment and Plan Assessment: Acute hypoxemic respiratory failure, on 2 L/min nasal cannula, secondary to pulmonary edema and suspected heart failure with reduced ejection fraction. Chest x-ray shows a stable cardiac silhouette with interstitial edema with b atwing appearance consistent with pulmonary edema. NT proBNP was elevated at 13,400. History of left foot gangrene status post left-sided below the knee amputation performed on 12/14/2023 with poor wound healing History of left [id number] amputation performed on 01/02/2024 Fall, CT of the brain and C-spine did not show any intracranial hemorrhage or mass effect, no cervical spine fracture. Facial CT does not show any acute facial fracture there is frontotemporal soft tissue swelling on the left. Anemia of chronic disease Chronic kidney disease stage III History of peripheral vascular disease with bilateral femoral-popliteal bypass History of hyperlipidemia History of hypertension Former tobacco smoker, quit September, History of asthma/COPD, and active Plan: Patient's medications, labs, chest x-ray reviewed Continue supplemental oxygen to maintain oxygen saturation of 92% or greater Continue with diuresis in the form of Lasix 40 mg twice daily Diuresing extremely well, fluid balance already -2 L Most recent echocardiogram reviewed Cardiology has been asked to see this patient On my evaluations, patient's asthma/COPD appears stable Continue with DuoNebs [id number] Could possibly discontinue IV Solu-Medrol We will continue to follow I have personally seen and examined the patient, performed the documentation and the assessment and plan as written. Number of minutes spent on the visit:20 This is a joint evaluation that was done along with nurse practitioner. This evaluation was done more than 30 minutes. The patient was seen in the ED. The patient presented after a fall and he was also in acute hypoxic respiratory failure and CHF. His chest x-ray showed acute pulmonary edema. proBNP level was quite elevated at 13,400. He is status post above-knee amputation left lower extremity because of the gangrenous leg. Surgery was done on 01/02/2024. He is known to have chronic kidney disease. He does not have significant vascular disease. No history of coronary disease. No history of CHF. Currently on 2 L of oxygen by nasal cannula. Cardiac rhythm is sinus. Breathing is nonlabored. Labs were reviewed and the patient's creatinine is at 1.3 with a BUN of 20. The viral screen has been negative. Sodium is at 134 and a WBC count of 10.8 with a hemoglobin of 8.8. His LFTs are essentially within normal limits. Denies having any chest pain. Started on bronchodilators. Currently on Bumex 1 mg p.o. daily and Aldactone 12.5 mg p.o. daily. Home medications to be resumed. Will continue to follow. Echocardiogram is in progress. Cardiology consult has been placed. Will obtain a baseline troponin. EKG is showing normal sinus rhythm and the patient has no acute ischemic changes. . Time with Patient: Greater than 30
[2024-01-11] MEDS: methylPREDNISolone SOD SUCCI 40 MG/ML 1 ML VIAL IV SCH (08:50)
[2024-01-11] MEDS: MORPHINE SULFATE 4 MG/ML SYRINGE IVP PRN (08:51)
[2024-01-11] MEDS: FUROSEMIDE 10 MG/ML 4 ML VIAL IV SCH (08:51)
[2024-01-11] MEDS: IPRATROPIUM-ALBUTEROL 3 ML NEB INHALATION SCH (09:04)
[2024-01-11] MEDS: METOPROLOL SUCCINATE (ER) 25 MG TAB.ER.24H PO SCH (09:42)
[2024-01-11] MEDS: ASPIRIN 81 MG PO SCH (09:42)
--- NOTE | 2024-01-11 10:05 | P.HPIM ---
History of Present Illness This is a pleasant 58 years old male with past medical history of multiple medical problems as below. He is known to our service as he was discharged to rehab on 01/08. After prolonged hospitalization For his peripheral vascular disease, he underwent toe surgery including left AKA. His hospital course complicated by severe anemia requiring 2 days of blood transfusion, he underwent EGD EGD showing antral gastritis on 01/06. Also patient with evidence of chronic kidney disease but that is stable He was discharged in stable condition however when she went to the rehab he fell twice over 2 days On first day he was having bad dreams and he fell out of his bed Second time he was awake and alert and he was trying to reach to his urinal when he lost his balance and fell on his face and currently there is a bruise on his left forehead. But no significant swelling, no bleeding or discharge. Patient is fully awake and oriented to time place person with no significant headache or dizziness Also patient on admission was found to have mildly hypoxic with evidence of fluid overload of bilateral leg edema but mainly on the right side and left side. Also he has mild basilar crepitation and chest x-ray showing bilateral infiltrate from fluid overload He denies abdominal complaint leg pain or vomiting but he was low appetite No urinary complaint. No headache dizziness weakness or numbness On admission his WBC is 10.8 was 10.1 and 12.3 upon discharge, hemoglobin stable at 8.8 and platelet count slightly up at 523. INR stable. BMP and liver enzymes were unremarkable. Creatinine is coming down from [facility] of 1.5-2.1 today is 1.36. Also he has elevated proBNP [id number] . Influenza A and type B, RSV, SARS (coronavirus) are undetected Echocardiogram from 09/2023 showing ejection fraction of 45% Review of Systems Yes however he will review of systems CONSTITUTIONAL: No fever, no malaise, no fatigue. HEENT: No recent visual problems or hearing problems. Denied any sore throat. CARDIOVASCULAR: No orthopnea, PND, no palpitations, no syncope. PULMONARY: No shortness of breath, no cough, no hemoptysis. GASTROINTESTINAL: No diarrhea, no nausea, no vomiting, no abdominal pain. Normoactive bowel sounds. NEUROLOGICAL: No headaches, no weakness, no numbness. HEMATOLOGICAL: Denies any bleeding or petechiae. GENITOURINARY: Denies any burning micturition, frequency, or urgency. MUSCULOSKELETAL/RHEUMATOLOGICAL: Denies any joint pain, swelling, or any muscle pain. ENDOCRINE: Denies any polyuria or polydipsia. Past Medical History Past Medical History: COPD, Vascular Disorder Additional Past Medical History / Comment(s): PVD, DVT R leg-recent R femoral popliteal bypass at [facility] 02/22/17, History of Any Multi-Drug Resistant Organisms: MRSA Date of last positivie culture/infection: 11/06/23 MRSA MDRO Source:: Left Leg Past Surgical History: Orthopedic Surgery Additional Past Surgical History / Comment(s): R fem pop bypass 02/22/[address] [facility], bilateral knee arthroscopic surgeries. 12/17/23 L BTK amputation Past Anesthesia/Blood Transfusion Reactions: No Reported Reaction Additional Past Anesthesia/Blood Transfusion Reaction / Comment(s): . Past Psychological History: Anxiety, Depression Smoking Status: Current every day smoker Past Alcohol Use History: Daily, Heavy Past Drug Use History: None Reported - Past Family History Mother Family Medical History: Cancer, Hyperlipidemia Additional Family Medical History / Comment(s): Mother had skin cancer. She is living. Father Family Medical History: Hyperlipidemia, Hypertension Additional Family Medical History / Comment(s): Father has heart condition. Medications and Allergies Home Medications Medication Instructions Recorded Confirmed Type Atorvastatin [Lipitor] 40 mg PO HS tab 09/10/23 01/11/24 Rx Mirtazapine [Remeron] 15 mg PO HS tab 09/10/23 01/11/24 Rx Thiamine [Vitamin B-1] 100 mg PO DAILY #30 tab 09/19/23 01/11/24 Rx Acetaminophen [Tylenol Arthritis] 650 mg PO Q6H PRN 11/05/23 01/11/24 History Citalopram Hydrobromide [CeleXA] 40 mg PO DAILY 11/05/23 01/11/24 History Naloxone HCl [Narcan] 4 mg NASAL ONCE PRN 11/05/23 01/11/24 History Metoprolol Succinate (ER) [Toprol 25 mg PO DAILY 11/22/23 01/11/24 History XL] Rivaroxaban [Xarelto] 2.5 mg PO BID 11/22/23 01/11/24 History Tamsulosin [Flomax] 0.4 mg PO DAILY 11/22/23 01/11/24 History Ascorbic Acid [Vitamin C] 500 mg PO DAILY 12/05/23 01/11/24 History Aspirin EC [Ecotrin Low Dose] 81 mg PO DAILY 12/05/23 01/11/24 History Calcium Carbonate/Vitamin D3 1 tab PO DAILY 12/05/23 01/11/24 History [Calcium 600 mg-Vit D3 5 mcg (200 unit)] Amiodarone [Cordarone] 200 mg PO BID tab 12/20/23 01/11/24 Rx Gabapentin [Neurontin] 300 mg PO BID #4 cap 12/20/23 01/11/24 Rx Magnesium Oxide [Mag-Ox] 400 mg PO BID tab 12/20/23 01/11/24 Rx Sennosides [Senokot] 8.6 mg PO BID tab 12/20/23 01/11/24 Rx Sodium Bicarbonate Tab 650 mg PO BID tab 12/20/23 01/11/24 Rx Pantoprazole [Protonix] 40 mg PO AC-BRKFST tab 01/09/24 01/11/24 Rx oxyCODONE-APAP 7.5-325MG [Percocet 1 tab PO Q12H PRN #10 tab 01/09/24 01/11/24 Rx 7.5-325 mg] Allergies Allergy/AdvReac Type Severity Reaction Status Date / Time No Known Allergies Allergy Verified 01/11/24 09:02 Physical Exam Vitals: Vital Signs Temp Pulse Resp BP Pulse Ox 01/11/24 09:05 98 01/11/24 08:47 66 16 133/70 01/11/24 07:51 97.3 F L 70 18 137/77 94 L 01/11/24 05:04 100 01/11/24 05:00 97.4 F L 71 18 146/75 98 01/11/24 04:54 101 H 01/11/24 04:00 67 16 148/78 89 L 01/11/24 03:00 64 16 157/80 98 01/11/24 01:46 98 F 68 18 165/89 97 Intake and Output 01/10/24 01/11/24 01/11/24 22:59 06:59 14:59 Output Total 1600 900 Balance -1600 -900 Output: Urine 1600 900 Other: Weight 90.718 kg GENERAL: The patient is alert and oriented x3, not in any acute distress. Well developed, well nourished. HEENT: Pupils are round and equally reacting to light. EOMI. No scleral icterus. No conjunctival pallor. Normocephalic, atraumatic. No pharyngeal erythema. No thyromegaly. CARDIOVASCULAR: S1 and S2 present. No murmurs, rubs, or gallops. PULMONARY: Chest is clear to auscultation, no wheezing or crackles. ABDOMEN: Soft, nontender, nondistended, normoactive bowel sounds. No palpable organomegaly. MUSCULOSKELETAL: Left BKA seen, purulent discharge seen. EXTREMITIES: No cyanosis, clubbing, or pedal edema. NEUROLOGICAL: Gross neurological examination did not reveal any focal deficits. SKIN: No rashes. Results CBC & Chem 7: 01/11/24 02:27 01/11/24 02:27 Labs: Abnormal Lab Results - Last 24 Hours (Table) 01/11/24 01/11/24 Range/Units 02:27 02:27 WBC 10.8 H (3.8-10.6) k/uL RBC 3.23 L (4.30-5.90) m/uL Hgb 8.8 L (13.0-17.5) gm/dL Hct 28.0 L (39.0-53.0) % RDW 16.0 H (11.5-15.5) % Plt Count 523 H (150-450) k/uL Neutrophils # 8.3 H (1.3-7.7) k/uL Lymphocytes # 0.9 L (1.0-4.8) k/uL Sodium 134 L (137-145) mmol/L Creatinine 1.36 H (0.66-1.25) mg/dL Calcium 7.7 L (8.4-10.2) mg/dL Total Protein 5.2 L (6.3-8.2) g/dL Albumin 2.2 L (3.5-5.0) g/dL Assessment and Plan Assessment: Diagnoses: Recurrent Fall without syncope with bilateral hip pain, with left forehead abrasion Acute on chronic systolic CHF, with mild low EF at 45% 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 Recurrent normocytic hypochromic anemia. S/p 2 minutes of blood transfusion. Surgery team on the case History of peripheral vascular disease with chronic critical left lower extremity ischemia s/p left common femoral and endarterectomy and left femoral- popliteal bypass Left sided renal mass CKD stage IV COPD Nicotine dependence Anxiety and depression Plan: Continue with IV Lasix 40 mg or Bumex 1 mg p.o. daily Monitor electrolytes and replace appropriately I do not think he needs steroids or antibiotic. Cardiology and pulmonary consult Patient on Xarelto and aspirin 81 mg at home Labs and medication were reviewed.. Continue same treatment. Continue with symptomatic treatment. Resume home medication. Monitor labs and vitals. DVT and GI prophylaxis. Further recommendations as per clinical course of the patient DVT prophylaxis: Is Xarelto GI Prophylaxis: Pepcid PT/OT: Pending Prognosis is guarded
[2024-01-11] MEDS: PANTOPRAZOLE 40 MG/10 ML VIAL IVP SCH (10:47)
[2024-01-11] MEDS: RIVAROXABAN 2.5 MG TABLET PO SCH (10:47)
--- NOTE | 2024-01-11 11:03 | P.CRDCN ---
History of Present Illness Consult date: 01/11/24 Reason for Consult (text): New onset CHF History of present illness: This is a 58-year-old male patient of Dr. Sherman with past medical history of PAD status post right femoral endarterectomy, right SFA and profunda embolectomy in 2017, recent left below the knee amputation followed by left ihloq-bnu-qtgi amputation, COPD. We have been asked to evaluate the patient for new onset of CHF. Patient has history of undergoing a left below the knee amputation on 12/13 and was on antibiotics but continued to have worsening of his stump wound and s ubsequently underwent a left zuwmy-msh-whpv amputation on 01/01. He was discharged to [facility] on 01/08. He states he needed to use the urinal and was unable to reach it ended up sliding off his bed falling forward onto the floor and hitting his head. He denies any loss of consciousness. He states that is the second night in a row that he has fallen. He does have some increased edema to the right leg which is in the proximal thigh area. Patient denies having shortness of breath but after he had the fall the staff put oxygen on him as his pulse ox was low. He EKG: Sinus rhythm with no acute ST-T wave changes. Chest x-ray: Extensive opacities throughout lungs may represent infection or i nflammatory change process and/or edema Laboratory studies: WBC 10.8, hemoglobin 8.8. Sodium 134, potassium 4.3, BUN 20 and creatinine 1.36. proBNP 13,400. Influenza A, influenza B, COVID-19, RSV n ot detected. Home cardiac medications: Toprol XL 25 mg daily, atorvastatin 40 mg daily, Xarelto 2.5 mg twice daily. Patient was not on diuretics. Echocardiogram performed on 12/06/2023 revealed EF of 40 to 45%, limited study. Review Of Systems: At the time of my exam: CONSTITUTIONAL: Denies fever or chills. Generalized weakness and falls x 2 HEENT: Denies blurred vision, vision changes, or eye pain. Denies hemoptysis CARDIOVASCULAR: Denies chest pain. Denies orthopnea. Denies PND. Denies palp itations RESPIRATORY: Denies shortness of breath. GASTROINTESTINAL: Denies abdominal pain. Denies nausea or vomiting. HEMATOLOGIC: Denies bleeding disorders. GENITOURINARY: Denies any blood in urine. SKIN: Denies puritis. Denies rash. Physical examination: Gen: This is a 58-year-old male in no acute distress VS: reviewed HEENT: Head wiith abrasion over left eye, normocephalic. Pupils equal, round. Sclerae is anicteric. NECK: Supple. No JVD. LUNGS: Clear to auscultation. No wheezes or rhonchi. No intercostal retractions. HEART: Regular rate and rhythm. No murmur. ABDOMEN: Soft No tenderness. EXTREMITIES: 1+ pedal edema, right. Left horht-zia-eddz amputation. NEUROLOGICAL: Patient is awake, alert and oriented x3. Assessment: Falls, mechanical Head injury without loss of consciousness Possible mild acute on chronic systolic heart failure Mild cardiomyopathy with EF of 40 to 45% Severe PAD status post left hwrni-rwg-vtnr amputation COPD Plan: Start patient on the following medications from his home list: Toprol XL 25 mg daily, atorvastatin 40 mg daily, Xarelto 2.5 mg twice daily Start patient on Aldactone 12.5 mg daily starting tomorrow Start Farxiga 10 mg daily tomorrow Continue aspirin 81 mg daily Known need for IV Lasix. Patient has received 2 doses in the emergency center this morning. Start patient on Bumex 1 mg daily starting tomorrow Obtain 2 view chest x-ray No need to repeat echocardiogram as this was recently done Further recommendations to follow based upon clinical course Thank you kindly for this consultation. Nurse practitioner note has been reviewed, I agree with documented findings and plan of care. Patient was seen and examined. Past Medical History Past Medical History: COPD, Vascular Disorder Additional Past Medical History / Comment(s): PVD, DVT R leg-recent R femoral po pliteal bypass at [facility] 02/22/17, History of Any Multi-Drug Resistant Organisms: MRSA Date of last positivie culture/infection: 11/06/23 MRSA MDRO Source:: Left Leg Past Surgical History: Orthopedic Surgery Additional Past Surgical History / Comment(s): R fem pop bypass 02/22/17 [facility], bilateral knee arthroscopic surgeries. 12/17/23 L BTK amputation Past Anesthesia/Blood Transfusion Reactions: No Reported Reaction Additional Past Anesthesia/Blood Transfusion Reaction / Comment(s): . Past Psychological History: Anxiety, Depression Smoking Status: Current every day smoker Past Alcohol Use History: Daily, Heavy Past Drug Use History: None Reported - Past Family History Mother Family Medical History: Cancer, Hyperlipidemia Additional Family Medical History / Comment(s): Mother had skin cancer. She is living. Father Family Medical History: Hyperlipidemia, Hypertension Additional Family Medical History / Comment(s): Father has heart condition. Medications and Allergies Home Medications Medication Instructions Recorded Confirmed Type Atorvastatin [Lipitor] 40 mg PO HS tab 09/10/23 01/11/24 Rx Mirtazapine [Remeron] 15 mg PO HS tab 09/10/23 01/11/24 Rx Thiamine [Vitamin B-1] 100 mg PO DAILY #30 tab 09/19/23 01/11/24 Rx Acetaminophen [Tylenol Arthritis] 650 mg PO Q6H PRN 11/05/23 01/11/24 History Citalopram Hydrobromide [CeleXA] 40 mg PO DAILY 11/05/23 01/11/24 History Naloxone HCl [Narcan] 4 mg NASAL ONCE PRN 11/05/23 01/11/24 History Metoprolol Succinate (ER) [Toprol 25 mg PO DAILY 11/22/23 01/11/24 History XL] Rivaroxaban [Xarelto] 2.5 mg PO BID 11/22/23 01/11/24 History Tamsulosin [Flomax] 0.4 mg PO DAILY 11/22/23 01/11/24 History Ascorbic Acid [Vitamin C] 500 mg PO DAILY 12/05/23 01/11/24 History Aspirin EC [Ecotrin Low Dose] 81 mg PO DAILY 12/05/23 01/11/24 History Calcium Carbonate/Vitamin D3 1 tab PO DAILY 12/05/23 01/11/24 History [Calcium 600 mg-Vit D3 5 mcg (200 unit)] Amiodarone [Cordarone] 200 mg PO BID tab 12/20/23 01/11/24 Rx Gabapentin [Neurontin] 300 mg PO BID #4 cap 12/20/23 01/11/24 Rx Magnesium Oxide [Mag-Ox] 400 mg PO BID tab 12/20/23 01/11/24 Rx Sennosides [Senokot] 8.6 mg PO BID tab 12/20/23 01/11/24 Rx Sodium Bicarbonate Tab 650 mg PO BID tab 12/20/23 01/11/24 Rx Pantoprazole [Protonix] 40 mg PO AC-BRKFST tab 01/09/24 01/11/24 Rx oxyCODONE-APAP 7.5-325MG [Percocet 1 tab PO Q12H PRN #10 tab 01/09/24 01/11/24 Rx 7.5-325 mg] Allergies Allergy/AdvReac Type Severity Reaction Status Date / Time No Known Allergies Allergy Verified 01/11/24 09:02 Physical Exam Vitals: Vital Signs Temp Pulse Resp BP Pulse Ox 01/11/24 08:47 66 16 133/70 01/11/24 07:51 97.3 F L 70 18 137/77 94 L 01/11/24 05:04 100 01/11/24 05:00 97.4 F L 71 18 146/75 98 01/11/24 04:54 101 H 01/11/24 04:00 67 16 148/78 89 L 01/11/24 03:00 64 16 157/80 98 01/11/24 01:46 98 F 68 18 165/89 97 Intake and Output 01/10/24 01/11/24 01/11/24 22:59 06:59 14:59 Output Total 1600 600 Balance -1600 -600 Output: Urine 1600 600 Other: Weight 90.718 kg Results 01/11/24 02:27 01/11/24 02:27 Cardiac Enzymes 01/11/24 Range/Units 02:27 AST 33 (17-59) U/L Coagulation 01/11/24 Range/Units 02:27 PT 11.5 (10.0-12.5) sec APTT 28.0 (22.0-30.0) sec CBC 01/11/24 Range/Units 02:27 WBC 10.8 H (3.8-10.6) k/uL RBC 3.23 L (4.30-5.90) m/uL Hgb 8.8 L (13.0-17.5) gm/dL Hct 28.0 L (39.0-53.0) % Plt Count 523 H (150-450) k/uL Comprehensive Metabolic Panel 01/11/24 Range/Units 02:27 Sodium 134 L (137-145) mmol/L Potassium 4.3 (3.5-5.1) mmol/L Chloride 104 (98-107) mmol/L Carbon Dioxide 25 (22-30) mmol/L BUN 20 (9-20) mg/dL Creatinine 1.36 H (0.66-1.25) mg/dL Glucose 79 (74-99) mg/dL Calcium 7.7 L (8.4-10.2) mg/dL AST 33 (17-59) U/L ALT 15 (4-49) U/L Alkaline Phosphatase 110 (38-126) U/L Total Protein 5.2 L (6.3-8.2) g/dL Albumin 2.2 L (3.5-5.0) g/dL Current Medications Generic Name Dose Route Start Last Admin Trade Name Freq PRN Reason Stop Dose Admin Albuterol/Ipratropium 3 ml 01/11/24 08:00 Ipratropium-Albuterol 3 Ml Neb INHALATION RT-Q4H OLVIN Furosemide 40 mg 01/11/24 09:00 01/11/24 08:51 Furosemide 10 Mg/Ml 4 Ml Vial IV 40 mg Q12HR OLVIN Administration Methylprednisolone Sodium Succinate 40 mg 01/11/24 09:00 01/11/24 08:50 Methylprednisolone Sod Succi 40 Mg/Ml 1 Ml Vial IV 40 mg Q12HR OLVIN Administration Morphine Sulfate 4 mg 01/11/24 04:57 01/11/24 08:51 Morphine Sulfate 4 Mg/Ml Syringe IVP 4 mg Q4HR PRN Administration Pain Naloxone HCl 0.2 mg 01/11/24 04:57 Naloxone 0.4 Mg/Ml 1 Ml Vial IV Q2M PRN Opioid Reversal Ondansetron HCl 4 mg 01/11/24 04:57 Ondansetron 4 Mg/2 Ml Vial IVP Q8HR PRN Nausea And Vomiting Intake and Output 01/10/24 01/11/24 01/11/24 22:59 06:59 14:59 Output Total 1600 600 Balance -1600 -600 Output: Urine 1600 600 Other: Weight 90.718 kg 01/11/24 02:27 01/11/24 02:27
--- NOTE | 2024-01-11 13:55 | XR ---
EXAMINATION TYPE: XR chest 2V DATE OF EXAM: 01/11/2024 10:29 AM CLINICAL INDICATION:Male, 58 years old with history of chf; [facility] COMPARISON: Chest radiographs from 01/11/2024 TECHNIQUE: XR chest 2V Frontal view of the chest. FINDINGS: Lungs/Pleura: Improved aeration of lungs on today's exam with persistent airspace opacities scattered throughout the lungs. No evidence of pneumothorax or large pleural effusion. Pulmonary vascularity: Unremarkable. Heart/mediastinum: Cardiomediastinal silhouette is unremarkable. Musculoskeletal: No acute osseous pathology. IMPRESSION: Improved aeration with persistent multifocal airspace opacities.
[2024-01-11] MEDS: ATORVASTATIN 40 MG TAB PO SCH (20:11)
[2024-01-12] MEDS: BUMETANIDE 1 MG TAB PO SCH (07:32)
[2024-01-12] MEDS: SPIRONOLACTONE 25 MG TAB PO SCH (07:33)
[2024-01-12] MEDS: DAPAGLIFLOZIN PROPANEDIOL 10 MG TABLET PO SCH (07:33)
[2024-01-12 08:01] LABS: Basophils % (A) 0 %; Eosinophils % (A) 0 %; HCT 28.9 % (39.0-53.0); HGB 8.9 gm/dL (13.0-17.5); Hypochromasia Slight; Lymphocytes # (A) 0.9 k/uL (1.0-4.8); Lymphocytes % (A) 5 %; MCH 26.9 pg (25.0-35.0); MCHC 30.8 g/dL (31.0-37.0); MCV 87.3 fL (80.0-100.0); Mean Platelet Volume 7.5; Monocytes # (A) 0.6 k/uL (0-1.0); Monocytes % (A) 4 %; Neutrophils # (A) 16.1 k/uL (1.3-7.7); Neutrophils % (A) 91 %; Platelet Count 627 k/uL (150-450); RBC 3.32 m/uL (4.30-5.90); WBC 17.7 k/uL (3.8-10.6)
[2024-01-12 08:33] LABS: ALT 15 U/L (4-49); AST 25 U/L (17-59); African American GFR (CKD) 63 (>60 ml/min/1.73 sqM); Albumin 2.5 g/dL (3.5-5.0); Alkaline Phosphatase 108 U/L (38-126); Anion Gap 7 mmol/L; Blood Urea Nitrogen 22 mg/dL (9-20); Calcium 8.2 mg/dL (8.4-10.2); Carbon Dioxide 28 mmol/L (22-30); Chloride 102 mmol/L (98-107); Glucose 119 mg/dL (74-99); Non-African American GFR(CKD) 55 (>60 ml/min/1.73 sqM); Sodium 137 mmol/L (137-145); Total Bilirubin 0.3 mg/dL (0.2-1.3); Total Protein 5.8 g/dL (6.3-8.2)
--- NOTE | 2024-01-12 10:53 | P.PN ---
Subjective This is a pleasant 58 years old male with past medical history of multiple medical problems as below. He is known to our service as he was discharged to rehab on 01/08. After prolonged hospitalization For his peripheral vascular disease, he underwent toe surgery including left AKA. His hospital course complicated by severe anemia requiring 2 days of blood transfusion, he underwent EGD EGD showing antral gastritis on 01/06. Also patient with evidence of chronic kidney disease but that is stable He was discharged in stable condition however when she went to the rehab he fell twice over 2 days On first day he was having bad dreams and he fell out of his bed Second time he was awake and alert and he was trying to reach to his urinal when he lost his balance and fell on his face and currently there is a bruise on his left forehead. But no significant swelling, no bleeding or discharge. Patient is fully awake and oriented to time place person with no significant headache or dizziness Also patient on admission was found to have mildly hypoxic with evidence of fluid overload of bilateral leg edema but mainly on the right side and left side. Also he has mild basilar crepitation and chest x-ray showing bilateral infiltrate from fluid overload He denies abdominal complaint leg pain or vomiting but he was low appetite No urinary complaint. No headache dizziness weakness or numbness On admission his WBC is 10.8 was 10.1 and 12.3 upon discharge, hemoglobin stable at 8.8 and platelet count slightly up at 523. INR stable. BMP and liver enzymes were unremarkable. Creatinine is coming down from baseline of 1.5-2.1 today is 1.36. Also he has elevated proBNP 12268 . Influenza A and type B, RSV, SARS (coronavirus) are undetected Echocardiogram from 09/2023 showing ejection fraction of 45% 01/12/2024 Patient awake admission awake alert, sitting up in bed no significant dyspnea, no chest pain He is eating his breakfast. He still feels generally weak. He still have significant leg edema, mild basilar crepitation and currently he is saturating well on 2 L oxygen via nasal cannula No abdominal pain or vomiting or diarrhea He still complaining from pain in his left AKA stump from last admission Currently he was placed on Bumex p.o. 1 mg daily. No IV medication. Patient also on aspirin we will continue. I also talked to the patient about the Xarelto and he want to continue. He understands the risk of bleeding. Cardiology and pulmonary team on the case Patient has worsening leukocytosis 17k I think that is due to the steroids he took in the emergency room which is stopped now. We will keep monitoring Patient also may be considered for discharge soon if you continue to improve and remained stable Review of systems CONSTITUTIONAL: No fever, no malaise, no fatigue. HEENT: No recent visual problems or hearing problems. Denied any sore throat. CARDIOVASCULAR: No orthopnea, PND, no palpitations, no syncope. PULMONARY: No shortness of breath, no cough, no hemoptysis. GASTROINTESTINAL: No diarrhea, no nausea, no vomiting, no abdominal pain. Normoactive bowel sounds. Active Medications Generic Name Dose Route Start Last Admin Trade Name Freq PRN Reason Stop Dose Admin Albuterol/Ipratropium 3 ml 01/11/24 08:00 01/12/24 08:10 Ipratropium-Albuterol 3 Ml Neb INHALATION Not Given RT-Q4H OLVIN Aspirin 81 mg 01/11/24 09:15 01/12/24 07:32 Aspirin 81 Mg PO 81 mg DAILY OLVIN Administration Atorvastatin Calcium 40 mg 01/11/24 21:00 01/11/24 20:11 Atorvastatin 40 Mg Tab PO 40 mg HS OLVIN Administration Bumetanide 1 mg 01/12/24 09:00 01/12/24 07:32 Bumetanide 1 Mg Tab PO 1 mg DAILY OLVIN Administration Dapagliflozin 10 mg 01/12/24 09:00 01/12/24 07:33 Dapagliflozin Propanediol 10 Mg Tablet PO 10 mg DAILY OLVIN Administration Metoprolol Succinate 25 mg 01/11/24 09:15 01/12/24 07:33 Metoprolol Succinate (Er) 25 Mg Tab.Er.24h PO 25 mg DAILY OLVIN Administration Morphine Sulfate 4 mg 01/11/24 04:57 01/11/24 08:51 Morphine Sulfate 4 Mg/Ml Syringe IVP 4 mg Q4HR PRN Administration Pain Naloxone HCl 0.2 mg 01/11/24 04:57 Naloxone 0.4 Mg/Ml 1 Ml Vial IV Q2M PRN Opioid Reversal Ondansetron HCl 4 mg 01/11/24 04:57 Ondansetron 4 Mg/2 Ml Vial IVP Q8HR PRN Nausea And Vomiting Pantoprazole Sodium 40 mg 01/11/24 10:15 01/12/24 07:33 Pantoprazole 40 Mg/10 Ml Vial IVP 40 mg DAILY OLVIN Administration Rivaroxaban 2.5 mg 01/11/24 09:15 01/12/24 07:32 Rivaroxaban 2.5 Mg Tablet PO 2.5 mg BID OLVIN Administration Protocol Spironolactone 12.5 mg 01/12/24 09:00 01/12/24 07:33 Spironolactone 25 Mg Tab PO 12.5 mg DAILY OLVIN Administration Objective - Vital Signs Vital signs: Vital Signs Temp 97.6 F 01/12/24 07:38 Pulse 72 01/12/24 07:38 Resp 16 01/12/24 07:38 BP 150/71 01/12/24 07:38 Pulse Ox 93 L 01/12/24 07:38 FiO2 Intake & Output 01/11/24 01/12/24 01/12/24 18:59 06:59 18:59 Intake Total 236 110 Output Total 1450 700 Balance -1214 -700 110 Weight 90.718 kg 100.5 kg Intake: Oral 236 110 Output: Urine 1450 700 Other: Voiding Method Urinal Urinal Urinal # Bowel Movements 1 - Exam GENERAL: The patient is alert and oriented x3, not in any acute distress. Well developed, well nourished. HEENT: Pupils are round and equally reacting to light. EOMI. No scleral icterus. No conjunctival pallor. Normocephalic, atraumatic. No pharyngeal erythema. No thyromegaly. CARDIOVASCULAR: S1 and S2 present. No murmurs, rubs, or gallops. PULMONARY: Chest is clear to auscultation, no wheezing , no crackles. ABDOMEN: Soft, nontender, nondistended, normoactive bowel sounds. No palpable o rganomegaly. MUSCULOSKELETAL: No joint swelling or deformity. -EXTREMITIES: No cyanosis, clubbing, or pedal edema. Status post left AKA NEUROLOGICAL: Gross neurological examination did not reveal any focal deficits. SKIN: No rashes. no petechiae. - Labs CBC & Chem 7: 01/12/24 07:13 01/12/24 07:13 Labs: Abnormal Lab Results - Last 24 Hours (Table) 01/12/24 01/12/24 Range/Units 07:13 07:13 WBC 17.7 H (3.8-10.6) k/uL RBC 3.32 L (4.30-5.90) m/uL Hgb 8.9 L (13.0-17.5) gm/dL Hct 28.9 L (39.0-53.0) % MCHC 30.8 L (31.0-37.0) g/dL RDW 16.0 H (11.5-15.5) % Plt Count 627 H (150-450) k/uL Neutrophils # 16.1 H (1.3-7.7) k/uL Lymphocytes # 0.9 L (1.0-4.8) k/uL BUN 22 H (9-20) mg/dL Creatinine 1.39 H (0.66-1.25) mg/dL Glucose 119 H (74-99) mg/dL Calcium 8.2 L (8.4-10.2) mg/dL Total Protein 5.8 L (6.3-8.2) g/dL Albumin 2.5 L (3.5-5.0) g/dL Assessment and Plan Assessment: Diagnoses: Recurrent Fall without syncope with bilateral hip pain, with left forehead abrasion Acute on chronic systolic CHF, with mild low EF at 45% 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 Recurrent normocytic hypochromic anemia. S/p 2 minutes of blood transfusion. Surgery team on the case History of peripheral vascular disease with chronic critical left lower extremity ischemia s/p left common femoral and endarterectomy and left femoral- popliteal bypass Left sided renal mass CKD stage IV COPD Nicotine dependence Anxiety and depression Plan: Continue with Bumex 1 mg p.o. daily Monitor electrolytes and replace appropriately I do not think he needs steroids or antibiotic. Cardiology and pulmonary consult Patient on Xarelto and aspirin 81 mg at home Labs and medication were reviewed.. Continue same treatment. Continue with symptomatic treatment. Resume home medication. Monitor labs and vitals. DVT and GI prophylaxis. Further recommendations as per clinical course of the patient DVT prophylaxis: Is Xarelto GI Prophylaxis: Pepcid PT/OT: Pending Prognosis is guarded
--- NOTE | 2024-01-12 11:57 | P.PN ---
Subjective Progress Note Date: 01/12/24 Patient is a 58-year-old male with past medical history significant for peripheral vascular disease, left foot gangrene status post BKA and subsequent AKA, former tobacco smoker, asthma/COPD, among other things. Of note, patient has had numerous hospitalizations since August,. He has had issues with left foot gangrene, underwent left below the knee amputation on 12/14/2023 at our facility. Left stump did not heal and became infected, subsequently had a left uejpf-rrl-gkde amputation January 02, 2024. Patient has been recovering/rehabbing at [facility]. While at the [facility], patient was trying to get his urinal and fell out of bed. Had head trauma and has a left forehead abrasion as well as a right sided laceration. Denies losing consciousness. He does have a headache. Denies any vision changes. No focal deficits. The patient is on anticoagulation with Xarelto. On arrival to the emergency department, he did have a CT of the brain and C-spine which did not show any acute acute intracranial hemorrhage or mass effect or cervical spine fracture. Facial CT does not show any acute facial fracture there is frontotemporal soft tissue swelling on the left. Of note, patient has been having progressively worsening shortness of breath. Associated right lower extremity swelling. Admits orthopnea. Denies PND. Denies chest pain, heart palpitations, syncope. Denies infectious symptoms such as fever, cough, sputum production. He was hypoxic on arrival to the emergency department and placed on 2 L/min nasal cannula. Chest x-ray demonstrates pulmonary edema with batwing a ppearance. NT proBNP elevated at 13,400. He has been started on Lasix 40 mg twice daily. He is diuresing well, and is already diuresed 2 L of urine. Most recent echocardiogram from 12/06/2023 estimates a mildly reduced left ventricular ejection fraction of 40 to 45% CBC: WBC count 10.8, hemoglobin 8.8, hematocrit 28, platelets 523. BMP: Sodium 134, potassium 4.3, chloride 104, serum bicarb 25, BUN 20, creatinine 1.36, glucose 79. LFTs not elevated. Negative for influenza, RSV, COVID. He is afebrile. Hemodynamically stable. 01/12/2024, the patient is being seen for a follow-up. Doing well. No specific complaints. The patient is currently on Bumex 1 mg p.o. daily and Aldactone. Remains on anticoagulants. No respiratory distress. The white cell count is 17 with a hemoglobin 8.9. BUN is 22 with a creatinine of 1.39. Sodium level is 137. No chest pain. No altered mentation. No other significant events overnight. Currently afebrile. Objective - Vital Signs Vital signs: Vital Signs Temp 97.6 F 01/12/24 07:38 Pulse 72 01/12/24 07:38 Resp 16 01/12/24 07:38 BP 150/71 01/12/24 07:38 Pulse Ox 93 L 01/12/24 07:38 FiO2 Intake & Output 01/11/24 01/12/24 01/12/24 18:59 06:59 18:59 Intake Total 236 110 Output Total 1450 700 Balance -1214 -700 110 Weight 90.718 kg 100.5 kg Intake: Oral 236 110 Output: Urine 1450 700 Other: Voiding Method Urinal Urinal # Bowel Movements 1 - Exam GENERAL EXAM: Alert, 58-year-old white male, appearing older than stated age, on 2 L/min nasal cannula, no respiratory distress, comfortable in no apparent distress. HEAD: Normocephalic. Right forehead laceration and left forehead abrasion EYES: Normal reaction of pupils, equal size. NOSE: Clear with pink turbinates. THROAT: No erythema or exudates. NECK: No masses, no JVD. CHEST: No chest wall deformity. LUNGS: Equal air entry with bilateral posterior inspiratory rales. On 2 L/min nasal cannula. No conversational dyspnea or accessory muscle use.. CVS: S1 and S2 normal with no audible murmur, regular rhythm. No extra heart sounds ABDOMEN: No hepatosplenomegaly, active bowel sounds, no guarding or rigidity. SPINE: No scoliosis or deformity SKIN: No rashes CENTRAL NERVOUS SYSTEM: No focal deficits, tone is normal in all 4 extremities. EXTREMITIES: Mild right lower extremity nonpitting edema. Left AKA incision is approximated with danna, no erythema, wound drainage. No clubbing, or cyanos is. Peripheral pulses are intact. - Labs CBC & Chem 7: 01/12/24 07:13 01/12/24 07:13 Labs: Abnormal Lab Results - Last 24 Hours (Table) 01/12/24 01/12/24 Range/Units 07:13 07:13 WBC 17.7 H (3.8-10.6) k/uL RBC 3.32 L (4.30-5.90) m/uL Hgb 8.9 L (13.0-17.5) gm/dL Hct 28.9 L (39.0-53.0) % MCHC 30.8 L (31.0-37.0) g/dL RDW 16.0 H (11.5-15.5) % Plt Count 627 H (150-450) k/uL Neutrophils # 16.1 H (1.3-7.7) k/uL Lymphocytes # 0.9 L (1.0-4.8) k/uL BUN 22 H (9-20) mg/dL Creatinine 1.39 H (0.66-1.25) mg/dL Glucose 119 H (74-99) mg/dL Calcium 8.2 L (8.4-10.2) mg/dL Total Protein 5.8 L (6.3-8.2) g/dL Albumin 2.5 L (3.5-5.0) g/dL Assessment and Plan Assessment: Acute hypoxemic respiratory failure, on 2 L/min nasal cannula, secondary to pulmonary edema and suspected heart failure with reduced ejection fraction. Chest x-ray shows a stable cardiac silhouette with interstitial edema with b atwing appearance consistent with pulmonary edema. NT proBNP was elevated at 13,400. Clinically improved and the patient is stable for now. History of left foot gangrene status post left-sided below the knee amputation performed on 12/14/2023 with poor wound healing History of left [id number]-[id number] amputation performed on 01/02/2024 Fall, CT of the brain and C-spine did not show any intracranial hemorrhage or mass effect, no cervical spine fracture. Facial CT does not show any acute facial fracture there is frontotemporal soft tissue swelling on the left. Anemia of chronic disease Chronic kidney disease stage III History of peripheral vascular disease with bilateral femoral-popliteal bypass History of hyperlipidemia History of hypertension Former tobacco smoker, quit September, History of asthma/COPD, and active Plan: Clinically improved and the patient is currently on 2 L of oxygen by nasal cannula Patient is on a combination of Bumex and Aldactone Most recent echocardiogram reviewed and the patient has mild impairment of LV function. Renal function is stable Cardiology is appreciated On my evaluations, patient's asthma/COPD appears stable Continue with [place] [id number] We will continue to follow .
--- NOTE | 2024-01-12 13:32 | P.PN ---
Subjective Progress Note Date: 01/12/24 History of present illness: This is a 58-year-old male patient of Dr. Sherman with past medical history of PAD status post right femoral endarterectomy, right SFA and profunda embolectomy in 2017, recent left below the knee amputation followed by left wshgv-sxw-rqxm amputation, COPD. We have been asked to evaluate the patient for new onset of CHF. Patient has history of undergoing a left below the knee amputation on 12/13 and was on antibiotics but continued to have worsening of his stump wound and subsequently underwent a left umzcy-iur-zras amputation on 01/01. He was disch arged to [facility] on 01/08. He states he needed to use the urinal and was unable to reach it ended up sliding off his bed falling forward onto the floor and hitting his head. He denies any loss of consciousness. He states that is the second night in a row that he has fallen. He does have some increased edema to the right leg which is in the proximal thigh area. Patient denies having shortness of breath but after he had the fall the staff put oxygen on him as his pulse ox was low. He EKG: Sinus rhythm with no acute ST-T wave changes. Chest x-ray: Extensive opacities throughout lungs may represent infection or inflammatory change process and/or edema Laboratory studies: WBC 10.8, hemoglobin 8.8. Sodium 134, potassium 4.3, BUN 20 and creatinine 1.36. proBNP 13,400. Influenza A, influenza B, COVID-19, RSV not detected. Home cardiac medications: Toprol XL 25 mg daily, atorvastatin 40 mg daily, Xarelto 2.5 mg twice daily. Patient was not on diuretics. Echocardiogram performed on 12/06/2023 revealed EF of 40 to 45%, limited study. Progress note January 12, 2024 WBC 17.7, hemoglobin 8.9, BUN 22, creatinine 1.39, On admission BNP was 13,000, troponin negative, Chest x-ray yesterday showed mild pulm congestion. He received 2 doses of IV Lasix and was started on p.o. Bumex since. He had good urine output. He still has 2+ pitting edema in right lower extremity. Physical examination: Gen: This is a 58-year-old male in no acute distress VS: reviewed HEENT: Head wiith abrasion over left eye, normocephalic. Pupils equal, round. Sclerae is anicteric. NECK: Supple. No JVD. LUNGS: Clear to auscultation. No wheezes or rhonchi. No intercostal retractions. HEART: Regular rate and rhythm. No murmur. ABDOMEN: Soft No tenderness. EXTREMITIES: 1-2+ pedal edema, right mid thigh. Left jnpfb-ymf-wsso amputation. NEUROLOGICAL: Patient is awake, alert and oriented x3. Assessment: Falls, mechanical Head injury without loss of consciousness Acute on chronic systolic heart failure Mild cardiomyopathy with EF of 40 to 45% Severe PAD status post left xlffs-kyc-dnhn amputation and right leg endarterectomy COPD Plan: Start patient on the following medications from his home list: Toprol XL 25 mg daily, atorvastatin 40 mg daily, Xarelto 2.5 mg twice daily Start patient on Bumex 1mg PO, Aldactone 12.5 mg daily and Farxiga 10 mg daily Continue aspirin 81 mg daily Obtain 2 view chest x-ray tomorrow No need to repeat echocardiogram as this was recently done Orthostatic vital signs prior to discharge to make sure patient is not having orthostasis being on diuretics. Anticipate discharge in next 24 to 48 hours Objective - Vital Signs Vital signs: Vital Signs Temp 97.6 F 01/12/24 07:38 Pulse 68 01/12/24 12:00 Resp 17 01/12/24 12:00 BP 157/75 01/12/24 12:00 Pulse Ox 94 L 01/12/24 12:00 FiO2 Intake & Output 01/11/24 01/12/24 01/12/24 18:59 06:59 18:59 Intake Total 236 110 Output Total 1450 700 200 Balance -1214 -700 -90 Weight 90.718 kg 100.5 kg Intake: Oral 236 110 Output: Urine 1450 700 200 Other: Voiding Method Urinal Urinal Urinal # Bowel Movements 1 - Labs CBC & Chem 7: 01/12/24 07:13 01/12/24 07:13 Labs: Abnormal Lab Results - Last 24 Hours (Table) 01/12/24 01/12/24 Range/Units 07:13 07:13 WBC 17.7 H (3.8-10.6) k/uL RBC 3.32 L (4.30-5.90) m/uL Hgb 8.9 L (13.0-17.5) gm/dL Hct 28.9 L (39.0-53.0) % MCHC 30.8 L (31.0-37.0) g/dL RDW 16.0 H (11.5-15.5) % Plt Count 627 H (150-450) k/uL Neutrophils # 16.1 H (1.3-7.7) k/uL Lymphocytes # 0.9 L (1.0-4.8) k/uL BUN 22 H (9-20) mg/dL Creatinine 1.39 H (0.66-1.25) mg/dL Glucose 119 H (74-99) mg/dL Calcium 8.2 L (8.4-10.2) mg/dL Total Protein 5.8 L (6.3-8.2) g/dL Albumin 2.5 L (3.5-5.0) g/dL Microbiology - Last 24 Hours (Table) 01/11/24 04:30 Blood Culture - Preliminary Blood 01/11/24 04:45 Blood Culture - Preliminary Blood
[2024-01-12] MEDS: ACETAMINOPHEN TAB 325 MG TAB PO PRN (22:02)
[2024-01-13 08:10] LABS: African American GFR (CKD) 60 (>60 ml/min/1.73 sqM); Anion Gap 6 mmol/L; Blood Urea Nitrogen 20 mg/dL (9-20); Calcium 7.7 mg/dL (8.4-10.2); Carbon Dioxide 29 mmol/L (22-30); Chloride 101 mmol/L (98-107); Glucose 71 mg/dL (74-99); Magnesium 1.2 mg/dL (1.6-2.3); Non-African American GFR(CKD) 52 (>60 ml/min/1.73 sqM); Potassium 3.4 mmol/L (3.5-5.1); Sodium 136 mmol/L (137-145)
[2024-01-13] MEDS ORDERED: DAPAGLIFLOZIN PROPANEDIOL 10 MG TABLET PO SCH (09:00)
--- NOTE | 2024-01-13 12:11 | P.PN ---
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 Of note, patient has had numerous hospitalizations since August,. He has had issues with left foot gangrene, underwent left below the knee amputation on 12/14/2023 at our facility. Left stump did not heal and became infected, subsequently had a left khanz-yfe-agwd amputation January 02, 2024. Patient has been recovering/rehabbing at [facility]. While at the [facility], patient was trying to get his urinal and fell out of bed. Had head trauma and has a left forehead abrasion as well as a right sided laceration. Denies losing consciousness. He does have a headache. Denies any vision changes. No focal deficits. The patient is on anticoagulation with Xarelto. On arrival to the emergency department, he did have a CT of the brain and C-spine which did not show any acute acute intracranial hemorrhage or mass effect or cervical spine fracture. Facial CT does not show any acute facial fracture there is frontotemporal soft tissue swelling on the left. Of note, patient has been having progressively worsening shortness of breath. Associated right lower extremity swelling. Admits orthopnea. Denies PND. Denies chest pain, heart palpitations, syncope. Denies infectious symptoms such as fever, cough, sputum production. He was hypoxic on arrival to the emergency department and placed on 2 L/min nasal cannula. Chest x-ray demonstrates pulmonary edema with batwing a ppearance. NT proBNP elevated at 13,400. He has been started on Lasix 40 mg twice daily. He is diuresing well, and is already diuresed 2 L of urine. Most recent echocardiogram from 12/06/2023 estimates a mildly reduced left ventricular ejection fraction of 40 to 45% CBC: WBC count 10.8, hemoglobin 8.8, hematocrit 28, platelets 523. BMP: Sodium 134, potassium 4.3, chloride 104, serum bicarb 25, BUN 20, creatinine 1.36, glucose 79. LFTs not elevated. Negative for influenza, RSV, COVID. He is afebrile. Hemodynamically stable. 01/12/2024, the patient is being seen for a follow-up. Doing well. No specific complaints. The patient is currently on Bumex 1 mg p.o. daily and Aldactone. Remains on anticoagulants. No respiratory distress. The white cell count is 17 with a hemoglobin 8.9. BUN is 22 with a creatinine of 1.39. Sodium level is 137. No chest pain. No altered mentation. No other significant events overnight. Currently afebrile. On 01/13/2024, the patient is being seen for a follow-up. The patient is doing well. The patient has no specific complaints. The patient is currently on room air oxygen. Limited cough and congestion and wheezing which has also subsided. Labs are all stable. Sodium level is at 136, potassium is at 3.4, BUN is 20 with a creatinine of 1.46. The patient is currently on Bumex 0.5 mg daily in addition to Aldactone. The patient is on long-term anticoagulation with Xarelto. Objective - Vital Signs Vital signs: Vital Signs Temp 98.4 F 01/13/24 07:59 Pulse 70 01/13/24 08:31 Resp 16 01/13/24 08:31 BP 149/74 01/13/24 07:59 Pulse Ox 95 01/13/24 07:59 FiO2 Intake & Output 01/12/24 01/13/24 01/13/24 18:59 06:59 18:59 Intake Total 812 200 480 Output Total 450 1200 Balance 362 -1000 480 Weight 99.5 kg Intake: Oral 812 200 480 Output: Urine 450 1200 Other: Voiding Method Urinal Urinal # Voids 1 # Bowel Movements 1 - Exam GENERAL EXAM: Alert, 58-year-old white male, appearing older than stated age, on 2 L/min nasal cannula, no respiratory distress, comfortable in no apparent distress. HEAD: Normocephalic. Right forehead laceration and left forehead abrasion EYES: Normal reaction of pupils, equal size. NOSE: Clear with pink turbinates. THROAT: No erythema or exudates. NECK: No masses, no JVD. CHEST: No chest wall deformity. LUNGS: Equal air entry with bilateral posterior inspiratory rales. On 2 L/min nasal cannula. No conversational dyspnea or accessory muscle use.. CVS: S1 and S2 normal with no audible murmur, regular rhythm. No extra heart sounds ABDOMEN: No hepatosplenomegaly, active bowel sounds, no guarding or rigidity. SPINE: No scoliosis or deformity SKIN: No rashes CENTRAL NERVOUS SYSTEM: No focal deficits, tone is normal in all 4 extremities. EXTREMITIES: Mild right lower extremity nonpitting edema. Left AKA incision is approximated with danna, no erythema, wound drainage. No clubbing, or cyanosis. Peripheral pulses are intact. - Labs CBC & Chem 7: 01/12/24 07:13 01/13/24 06:39 Labs: Abnormal Lab Results - Last 24 Hours (Table) 01/13/24 Range/Units 06:39 Sodium 136 L (137-145) mmol/L Potassium 3.4 L (3.5-5.1) mmol/L Creatinine 1.46 H (0.66-1.25) mg/dL Glucose 71 L (74-99) mg/dL Calcium 7.7 L (8.4-10.2) mg/dL Magnesium 1.2 L (1.6-2.3) mg/dL Microbiology - Last 24 Hours (Table) 01/11/24 04:30 Blood Culture - Preliminary Blood 01/11/24 04:45 Blood Culture - Preliminary Blood Assessment and Plan Assessment: Acute hypoxemic respiratory failure, secondary to pulmonary edema and suspected heart failure with reduced ejection fraction. Chest x-ray shows a stable cardiac silhouette with interstitial edema with batwing appearance consistent with pulmonary edema. NT proBNP was elevated at 13,400. Clinically improved and the patient is stable for now. The patient is improved and the patient is currently on room air oxygen History of left foot gangrene status post left-sided below the knee amputation performed on 12/14/2023 with poor wound healing History of left rdpzm-bhk-paev amputation performed on 01/02/2024 Fall, CT of the brain and C-spine did not show any intracranial hemorrhage or mass effect, no cervical spine fracture. Facial CT does not show any acute facial fracture there is frontotemporal soft tissue swelling on the left. Anemia of chronic disease Chronic kidney disease stage III History of peripheral vascular disease with bilateral femoral-popliteal bypass History of hyperlipidemia History of hypertension Former tobacco smoker, quit September, History of asthma/COPD, and active Plan: Clinically improved and the patient is currently on oxygen Patient is on a combination of Bumex and Aldactone Most recent echocardiogram reviewed and the patient has mild impairment of LV function. Renal function is stable Cardiology is appreciated On my evaluations, patient's asthma/COPD appears stable Continue with DuoNebs [id number]-[id number] We will continue to follow Discharge planning is in progress .
--- NOTE | 2024-01-13 12:48 | P.PN ---
Subjective Progress Note Date: 01/13/24 History of present illness: This is a 58-year-old male patient of Dr. Sherman with past medical history of PAD status post right femoral endarterectomy, right SFA and profunda embolectomy in 2017, recent left below the knee amputation followed by left zwdcg-urh-abrz amputation, COPD. We have been asked to evaluate the patient for new onset of CHF. Patient has history of undergoing a left below the knee amputation on 12/13 and was on antibiotics but continued to have worsening of his stump wound and subsequently underwent a left tojmn-oez-tjcy amputation on 01/01. He was disch arged to [facility] on 01/08. He states he needed to use the urinal and was unable to reach it ended up sliding off his bed falling forward onto the floor and hitting his head. He denies any loss of consciousness. He states that is the second night in a row that he has fallen. He does have some increased edema to the right leg which is in the proximal thigh area. Patient denies having shortness of breath but after he had the fall the staff put oxygen on him as his pulse ox was low. He EKG: Sinus rhythm with no acute ST-T wave changes. Chest x-ray: Extensive opacities throughout lungs may represent infection or inflammatory change process and/or edema Laboratory studies: WBC 10.8, hemoglobin 8.8. Sodium 134, potassium 4.3, BUN 20 and creatinine 1.36. proBNP 13,400. Influenza A, influenza B, COVID-19, RSV not detected. Home cardiac medications: Toprol XL 25 mg daily, atorvastatin 40 mg daily, Xarelto 2.5 mg twice daily. Patient was not on diuretics. Echocardiogram performed on 12/06/2023 revealed EF of 40 to 45%, limited study. Progress note January 12, 2024 WBC 17.7, hemoglobin 8.9, BUN 22, creatinine 1.39, On admission BNP was 13,000, troponin negative, Chest x-ray yesterday showed mild pulm congestion. He received 2 doses of IV Lasix and was started on p.o. Bumex since. He had good urine output. He still has 2+ pitting edema in right lower extremity. January 13, 2024 Patient is in sinus rhythm with heart rate around 62 bpm, creatinine 1.46. Yest erday but was 1.39. Potassium is 3.4. Tolerating addition of Aldactone. Lungs are clear on examination, does have right lower extremity pitting edema which appears to be chronic and also has some component of venous stasis. He had a orthostatic vital signs done with SBP during laying flat it was 133, BP in standing position 116 mmHg. Patient denies any lightheadedness or dizziness Physical examination: Gen: This is a 58-year-old male in no acute distress VS: reviewed HEENT: Head wiith abrasion over left eye, normocephalic. Pupils equal, round. Sclerae is anicteric. NECK: Supple. No JVD. LUNGS: Clear to auscultation. No wheezes or rhonchi. No intercostal retractions. HEART: Regular rate and rhythm. No murmur. ABDOMEN: Soft No tenderness. EXTREMITIES: 1-2+ pedal edema, right mid thigh. Left yqcbm-ylv-nnhj amputation. NEUROLOGICAL: Patient is awake, alert and oriented x3. Assessment: Falls, mechanical Head injury without loss of consciousness Does have orthostatic hypotension Acute on chronic systolic heart failure Mild cardiomyopathy with EF of 40 to 45% Severe PAD status post left gbgkm-nsz-drln amputation and right leg endarterectomy COPD Plan: Continue home medication Toprol-XL 25 mg, Lipitor 40, Xarelto 2.5 mg daily, aspirin. Started Aldactone 12.5 mg daily and Farxiga on this admission. Continue on discharge Reduce Bumex to 0.5 mg p.o. daily because of addition of Aldactone and Farxiga and because of component of orthostatic hypotension. Anticipate discharge in next 24 hours. Consider signing off tomorrow Objective - Vital Signs Vital signs: Vital Signs Temp 98.1 F 01/13/24 11:32 Pulse 63 01/13/24 11:32 Resp 17 01/13/24 11:32 BP 157/76 01/13/24 11:32 Pulse Ox 97 01/13/24 11:32 FiO2 Intake & Output 01/12/24 01/13/24 01/13/24 18:59 06:59 18:59 Intake Total 812 200 838 Output Total 450 1200 1400 Balance 362 1000 -721 Weight 99.5 kg Intake: Oral 812 200 838 Output: Urine 450 1200 1400 Other: Voiding Method Urinal Urinal Urinal # Voids 1 # Bowel Movements 1 - Labs CBC & Chem 7: 01/12/24 07:13 01/13/24 06:39 Labs: Abnormal Lab Results - Last 24 Hours (Table) 01/13/24 Range/Units 06:39 Sodium 136 L (137-145) mmol/L Potassium 3.4 L (3.5-5.1) mmol/L Creatinine 1.46 H (0.66-1.25) mg/dL Glucose 71 L (74-99) mg/dL Calcium 7.7 L (8.4-10.2) mg/dL Magnesium 1.2 L (1.6-2.3) mg/dL Microbiology - Last 24 Hours (Table) 01/11/24 04:30 Blood Culture - Preliminary Blood 01/11/24 04:45 Blood Culture - Preliminary Blood
--- NOTE | 2024-01-13 15:05 | P.PN ---
Subjective This is a pleasant 58 years old male with past medical history of multiple medical problems as below. He is known to our service as he was discharged to rehab on 01/08. After prolonged hospitalization For his peripheral vascular disease, he underwent toe surgery including left AKA. His hospital course complicated by severe anemia requiring 2 days of blood transfusion, he underwent EGD EGD showing antral gastritis on 01/06. Also patient with evidence of chronic kidney disease but that is stable He was discharged in stable condition however when she went to the rehab he fell twice over 2 days On first day he was having bad dreams and he fell out of his bed Second time he was awake and alert and he was trying to reach to his urinal when he lost his balance and fell on his face and currently there is a bruise on his left forehead. But no significant swelling, no bleeding or discharge. Patient is fully awake and oriented to time place person with no significant headache or dizziness Also patient on admission was found to have mildly hypoxic with evidence of fluid overload of bilateral leg edema but mainly on the right side and left side. Also he has mild basilar crepitation and chest x-ray showing bilateral infiltrate from fluid overload He denies abdominal complaint leg pain or vomiting but he was low appetite No urinary complaint. No headache dizziness weakness or numbness On admission his WBC is 10.8 was 10.1 and 12.3 upon discharge, hemoglobin stable at 8.8 and platelet count slightly up at 523. INR stable. BMP and liver enzymes were unremarkable. Creatinine is coming down from baseline of 1.5-2.1 today is 1.36. Also he has elevated proBNP 47582 . Influenza A and type B, RSV, SARS (coronavirus) are undetected Echocardiogram from 09/2023 showing ejection fraction of 45% 01/12/2024 Patient awake admission awake alert, sitting up in bed no significant dyspnea, no chest pain He is eating his breakfast. He still feels generally weak. He still have significant leg edema, mild basilar crepitation and currently he is saturating well on 2 L oxygen via nasal cannula No abdominal pain or vomiting or diarrhea He still complaining from pain in his left AKA stump from last admission Currently he was placed on Bumex p.o. 1 mg daily. No IV medication. Patient also on aspirin we will continue. I also talked to the patient about the Xarelto and he want to continue. He understands the risk of bleeding. Cardiology and pulmonary team on the case Patient has worsening leukocytosis 17k I think that is due to the steroids he took in the emergency room which is stopped now. We will keep monitoring Patient also may be considered for discharge soon if you continue to improve and remained stable 01/13/24 Patient was just discharged from the hospital to rehab after he had left AKA. He comes back with a fall while he is on Xarelto and aspirin with mild facial bruise which is healing now. He was found to have fluid overload and mild hypoxia most likely secondary to the blood transfusion he received 2 units prior to discharge last time for his acute drop of hemoglobin down to 6+. He is status post EGD and surgery team which was showing only antral formation. His antiplatelets and Xarelto were resumed at discharge to rehab, after he had a and came back. He got some Lasix in the emergency room and then continued on Bumex and doing well currently Patient feels he can go to rehab soon as he is improving His main complaint is pain in his left lower extremity stump. He is supposed to see Dr. miles on this coming Sunday therefore we will going to consult them to evaluate his wound tomorrow possibly prior to discharge Objective - Vital Signs Vital signs: Vital Signs Temp 98.1 F 01/13/24 11:32 Pulse 63 01/13/24 11:32 Resp 17 01/13/24 11:32 BP 157/76 01/13/24 11:32 Pulse Ox 97 01/13/24 11:32 FiO2 Intake & Output 01/12/24 01/13/24 01/13/24 18:59 06:59 18:59 Intake Total 812 200 838 Output Total 450 1200 1400 Balance 362 -1000 -562 Weight 99.5 kg Intake: Oral 812 200 838 Output: Urine 450 1200 1400 Other: Voiding Method Urinal Urinal Urinal # Voids 1 # Bowel Movements 1 - Exam GENERAL: The patient is alert and oriented x3, not in any acute distress. Well developed, well nourished. HEENT: Pupils are round and equally reacting to light. EOMI. No scleral icterus. No conjunctival pallor. Normocephalic, atraumatic. No pharyngeal erythema. No thyromegaly. CARDIOVASCULAR: S1 and S2 present. No murmurs, rubs, or gallops. PULMONARY: Chest is clear to auscultation, no wheezing , no crackles. ABDOMEN: Soft, nontender, nondistended, normoactive bowel sounds. No palpable organomegaly. MUSCULOSKELETAL: No joint swelling or deformity. -EXTREMITIES: No cyanosis, clubbing, or pedal edema. Status post left AKA NEUROLOGICAL: Gross neurological examination did not reveal any focal deficits. SKIN: No rashes. no petechiae. - Labs CBC & Chem 7: 01/12/24 07:13 01/13/24 06:39 Labs: Abnormal Lab Results - Last 24 Hours (Table) 01/13/24 Range/Units 06:39 Sodium 136 L (137-145) mmol/L Potassium 3.4 L (3.5-5.1) mmol/L Creatinine 1.46 H (0.66-1.25) mg/dL Glucose 71 L (74-99) mg/dL Calcium 7.7 L (8.4-10.2) mg/dL Magnesium 1.2 L (1.6-2.3) mg/dL Microbiology - Last 24 Hours (Table) 01/11/24 04:45 Blood Culture - Preliminary Blood 01/11/24 04:30 Blood Culture - Preliminary Blood Assessment and Plan Assessment: Diagnoses: Recurrent Fall without syncope with bilateral hip pain, with left forehead abrasion Acute on chronic systolic CHF, with mild low EF at 45% 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 Recurrent normocytic hypochromic anemia. S/p 2 minutes of blood transfusion. Surgery team on the case History of peripheral vascular disease with chronic critical left lower extremity ischemia s/p left common femoral and endarterectomy and left femoral- popliteal bypass Left sided renal mass CKD stage IV COPD Nicotine dependence Anxiety and depression Plan: Continue with Bumex 1 mg p.o. daily Monitor electrolytes and replace appropriately I do not think he needs steroids or antibiotic. Cardiology and pulmonary consult Patient on Xarelto and aspirin 81 mg at home Labs and medication were reviewed.. Continue same treatment. Continue with symptomatic treatment. Resume home medication. Monitor labs and vitals. DVT and GI prophylaxis. Further recommendations as per clinical course of the patient DVT prophylaxis: Is Xarelto GI Prophylaxis: Pepcid PT/OT: Pending Prognosis is guarded
[2024-01-13] MEDS: ALPRAZolam 0.5 MG TAB PO PRN (16:21)
[2024-01-14] MEDS: BUMETANIDE 0.5 MG TABLET PO SCH (09:23)
[2024-01-14 09:36] VITALS: RESP 17
[2024-01-14] MEDS: CITALOPRAM HYDROBROMIDE 20 MG TAB PO SCH (11:06)
[2024-01-14] MEDS: TAMSULOSIN 0.4 MG CAP.ER.24H PO SCH (11:06)
[2024-01-14] MEDS: THIAMINE 100 MG TAB PO SCH (11:06)
[2024-01-14] MEDS: CALCIUM CARB-VIT D 500 MG-5 MCG TAB PO SCH (11:06)
--- NOTE | 2024-01-14 11:09 | P.GSCN ---
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 Stearns. Patient was admitted after he sustained 2 falls at [facility] and was brought in for further evaluation. Patient was found to have acute hypoxic respiratory failure likely secondary to pulmonary edema and suspected heart failure with reduced EF and being followed by pulmonology as well as cardiology. Patient is currently sitting up at the bedside chair. He is without any complaints of his left lugqh-ggx-fqpv amputation site. 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 He is being followed by [facility]. Vascular surgery was consulted for evaluation of AKA site. He denies any pain at the site, no drainage, redness, fevers or chills. Review of Systems A 14 point review systems was completed all pertinent positives and negatives as stated in the HPI. Past Medical History Past Medical History: COPD, Vascular Disorder Additional Past Medical History / Comment(s): PVD, DVT R leg-recent R femoral popliteal bypass at [facility] 02/22/17, History of Any Multi-Drug Resistant Organisms: MRSA Year Discovered:: 11/06/23 MRSA MDRO Source:: Left Leg Past Surgical History: Orthopedic Surgery Additional Past Surgical History / Comment(s): R fem pop bypass 02/22/17 [facility], bilateral knee arthroscopic surgeries. 12/17/23 L BTK amputation Past Anesthesia/Blood Transfusion Reactions: No Reported Reaction Additional Past Anesthesia/Blood Transfusion Reaction / Comm: . Smoking Status: Former smoker - Past Family History Mother Family Medical History: Cancer, Hyperlipidemia Additional Family Medical History / Comment(s): Mother had skin cancer. She is living. Father Family Medical History: Hyperlipidemia, Hypertension Additional Family Medical History / Comment(s): Father has heart condition. Medications and Allergies Home Medications Medication Instructions Recorded Confirmed Type Atorvastatin [Lipitor] 40 mg PO HS tab 09/10/23 01/11/24 Rx Mirtazapine [Remeron] 15 mg PO HS tab 09/10/23 01/11/24 Rx Thiamine [Vitamin B-1] 100 mg PO DAILY #30 tab 09/19/23 01/11/24 Rx Acetaminophen [Tylenol Arthritis] 650 mg PO Q6H PRN 11/05/23 01/11/24 History Citalopram Hydrobromide [CeleXA] 40 mg PO DAILY 11/05/23 01/11/24 History Naloxone HCl [Narcan] 4 mg NASAL ONCE PRN 11/05/23 01/11/24 History Metoprolol Succinate (ER) [Toprol 25 mg PO DAILY 11/22/23 01/11/24 History XL] Rivaroxaban [Xarelto] 2.5 mg PO BID 11/22/23 01/11/24 History Tamsulosin [Flomax] 0.4 mg PO DAILY 11/22/23 01/11/24 History Ascorbic Acid [Vitamin C] 500 mg PO DAILY 12/05/23 01/11/24 History Aspirin EC [Ecotrin Low Dose] 81 mg PO DAILY 12/05/23 01/11/24 History Calcium Carbonate/Vitamin D3 1 tab PO DAILY 12/05/23 01/11/24 History [Calcium 600 mg-Vit D3 5 mcg (200 unit)] Magnesium Oxide [Mag-Ox] 400 mg PO BID tab 12/20/23 01/11/24 Rx Sennosides [Senokot] 8.6 mg PO BID tab 12/20/23 01/11/24 Rx Pantoprazole [Protonix] 40 mg PO AC-BRKFST tab 01/09/24 01/11/24 Rx Bumetanide [BUMEX] 0.5 mg PO DAILY tab 01/14/24 Rx Dapagliflozin Propanediol [Farxiga] 10 mg PO DAILY tab 01/14/24 Rx Ipratropium-Albuterol Nebulize 3 ml INHALATION RT-Q4H each 01/14/24 Rx [Duoneb 0.5 mg-3 mg/3 ml Soln] Spironolactone [Aldactone] 12.5 mg PO DAILY tab 01/14/24 Rx Allergies Allergy/AdvReac Type Severity Reaction Status Date / Time No Known Allergies Allergy Verified 01/11/24 09:02 Surgical - Exam Vital Signs Temp Pulse Resp BP Pulse Ox 98 F 68 18 165/89 97 01/11/24 01:46 01/11/24 01:46 01/11/24 01:46 01/11/24 01:46 01/11/24 01:46 General appearance: The patient is alert, oriented, appears in no acute distress. HET: Head is normocephalic and atraumatic. Pupils are equal and reactive. Neck: Supple. Heart: Regular. Lungs: Equal expansion, normal respiratory effort. Abdomen: Soft, nontender, nondistended. Extremities: Right lower extremity edema, left ewpcl-hnx-exub amputation with incision well-approximated with danna, surrounding skin pink, warm, dry without any drainage.. 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 Neurological: No focal deficits. Strength and sensation are grossly intact. Results - Labs 01/12/24 07:13 01/13/24 06:39 Microbiology - Last 24 Hours (Table) 01/11/24 04:45 Blood Culture - Preliminary Blood 01/11/24 04:30 Blood Culture - Preliminary Blood Assessment and Plan Assessment: 1. Recent left keptn-luc-womj amputation 01/02/2024 for nonhealing below the knee amputation healing well 2. Peripheral arterial disease with history of left lower extremity status post left common femoral endarterectomy and femoral to below-knee popliteal bypass 3. Recent Fall with head injury 4. Chronic anemia Plan: There is no indication for any vascular surgical intervention. Surgical incision site is healing well without any signs of infection, well-approximated with danna. 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 Continue with rest of medical management per primary medical team and other consultants. Thank you for this consultation, we will sign off at this time. Patient can follow-up in office next week for staple removal. The impression and plan of care has been dictated as directed. I performed a history and examination of this patient, discussed the same with the dictator. I agree with the dictator's note ,documented as a scribe. Any additional findings or plans will be noted.
--- NOTE | 2024-01-14 12:32 | P.PN ---
Subjective HISTORY OF PRESENT ILLNESS: This is a 58-year-old male patient of Dr. Sherman with past medical history of PAD status post right femoral endarterectomy, right SFA and profunda embolectomy in 2017, recent left below the knee amputation followed by left fjsdn-raz-sppo amputation, COPD. We have been asked to evaluate the patient for new onset of CHF. Patient has history of undergoing a left below the knee amputation on 12/13 and was on antibiotics but continued to have worsening of his stump wound and subsequently underwent a left pkivj-pyz-kefc amputation on 01/01. He was discharged to [facility] on 01/08. He states he needed to use the urinal and was unable to reach it ended up sliding off his bed falling forward onto the floor and hitting his head. He denies any loss of consciousness. He states that is the second night in a row that he has fallen. He does have some increased edema to the right leg which is in the proximal thigh area. Patient denies having shortness of breath but after he had the fall the staff put oxygen on him as his pulse ox was low. He EKG: Sinus rhythm with no acute ST-T wave changes. Chest x-ray: Extensive opacities throughout lungs may represent infection or inflammatory change process and/or edema Laboratory studies: WBC 10.8, hemoglobin 8.8. Sodium 134, potassium 4.3, BUN 20 and creatinine 1.36. proBNP 13,400. Influenza A, influenza B, COVID-19, RSV not detected. Home cardiac medications: Toprol XL 25 mg daily, atorvastatin 40 mg daily, Xarelto 2.5 mg twice daily. Patient was not on diuretics. Echocardiogram performed on 12/06/2023 revealed EF of 40 to 45%, limited study. January 12, 2024 WBC 17.7, hemoglobin 8.9, BUN 22, creatinine 1.39, On admission BNP was 13,000, troponin negative, Chest x-ray yesterday showed mild pulm congestion. He received 2 doses of IV Lasix and was started on p.o. Bumex since. He had good urine output. He still has 2+ pitting edema in right lower extremity. January 13, 2024 Patient is in sinus rhythm with heart rate around 62 bpm, creatinine 1.46. Yesterday but was 1.39. Potassium is 3.4. Tolerating addition of Aldactone. Lungs are clear on examination, does have right lower extremity pitting edema which appears to be chronic and also has some component of venous stasis. He had a orthostatic vital signs done with SBP during laying flat it was 133, BP in standing position 116 mmHg. Patient denies any lightheadedness or dizziness 01/14/2024 Patient examined this morning. Patient is sitting up in the chair. Patient denies any chest pain or pressure. He denies any shortness of breath. Patient states that he feels like his head and his thoughts are clouded today. Vital signs are stable. PHYSICAL EXAM: VITAL SIGNS: Reviewed. GENERAL: Well-developed in no acute distress. NECK: Supple. No JVD or thyromegaly LUNGS: Respirations even and unlabored. Lungs essentially clear to auscultation bilaterally. HEART: Regular rate and rhythm. S1 and S2 heard. EXTREMITIES: Normal range of motion. No clubbing or cyanosis. Peripheral pulses intact. Left AKA. ASSESSMENT: Status post mechanical fall Peripheral arterial disease Status post left smwsh-qck-guba amputation and right leg endarterectomy History of COPD Acute heart failure with reduced EF, resolved, patient previously not on diuretics Mild cardiomyopathy, EF 40 to 45%, ischemic versus nonischemic PLAN: Continue current cardiac medications Patient is currently stable from a cardiac standpoint with no further inpatient recommendations We will sign off. Please reconsult if needed. Nurse practitioner note has been reviewed by physician. Signing provider agrees with the documented findings, assessment, and plan of care documented by [employer] GLA[employer]IER as a scribe. Objective - Vital Signs Vital signs: Vital Signs Temp 97.7 F 01/14/24 11:32 Pulse 60 01/14/24 11:32 Resp 17 01/14/24 11:32 BP 155/75 01/14/24 11:32 Pulse Ox 100 01/14/24 11:32 FiO2 Intake & Output 01/13/24 01/14/24 01/14/24 18:59 06:59 18:59 Intake Total 1378 220 120 Output Total 3050 725 700 Balance -4112 -505 -487 Weight 86 kg Intake: IV 20 10 Invasive Line 1 20 10 Oral 1378 200 110 Output: Urine 3050 725 700 Other: Voiding Method Urinal Urinal Urinal # Voids 2 - Labs CBC & Chem 7: 01/12/24 07:13 01/13/24 06:39 Labs: Microbiology - Last 24 Hours (Table) 01/11/24 04:45 Blood Culture - Preliminary Blood 01/11/24 04:30 Blood Culture - Preliminary Blood
--- NOTE | 2024-01-14 13:14 | P.PN ---
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 Of note, patient has had numerous hospitalizations since August,. He has had issues with left foot gangrene, underwent left below the knee amputation on 12/14/2023 at our facility. Left stump did not heal and became infected, subsequently had a left ohgda-tbm-very amputation January 02, 2024. Patient has been recovering/rehabbing at [facility]. While at the [facility], patient was trying to get his urinal and fell out of bed. Had head trauma and has a left forehead abrasion as well as a right sided laceration. Denies losing consciousness. He does have a headache. Denies any vision changes. No focal deficits. The patient is on anticoagulation with Xarelto. On arrival to the emergency department, he did have a CT of the brain and C-spine which did not show any acute acute intracranial hemorrhage or mass effect or cervical spine fracture. Facial CT does not show any acute facial fracture there is frontotemporal soft tissue swelling on the left. Of note, patient has been having progressively worsening shortness of breath. Associated right lower extremity swelling. Admits orthopnea. Denies PND. Denies chest pain, heart palpitations, syncope. Denies infectious symptoms such as fever, cough, sputum production. He was hypoxic on arrival to the emergency department and placed on 2 L/min nasal cannula. Chest x-ray demonstrates pulmonary edema with batwing appearance. NT proBNP elevated at 13,400. He has been started on Lasix 40 mg twice daily. He is diuresing well, and is already diuresed 2 L of urine. Most recent echocardiogram from 12/06/2023 estimates a mildly reduced left ventricular ejection fraction of 40 to 45% CBC: WBC count 10.8, hemoglobin 8.8, hematocrit 28, platelets 523. BMP: Sodium 134, potassium 4.3, chloride 104, serum bicarb 25, BUN 20, creatinine 1.36, glucose 79. LFTs not elevated. Negative for influenza, RSV, COVID. He is afebrile. Hemodynamically stable. 01/12/2024, the patient is being seen for a follow-up. Doing well. No specific complaints. The patient is currently on Bumex 1 mg p.o. daily and Aldactone. Remains on anticoagulants. No respiratory distress. The white cell count is 17 with a hemoglobin 8.9. BUN is 22 with a creatinine of 1.39. Sodium level is 137. No chest pain. No altered mentation. No other significant events overnight. Currently afebrile. On 01/13/2024, the patient is being seen for a follow-up. The patient is doing well. The patient has no specific complaints. The patient is currently on room air oxygen. Limited cough and congestion and wheezing which has also subsided. Labs are all stable. Sodium level is at 136, potassium is at 3.4, BUN is 20 with a creatinine of 1.46. The patient is currently on Bumex 0.5 mg daily in addition to Aldactone. The patient is on long-term anticoagulation with Xarelto. Patient was seen today on 01/14/2024, sitting up in the chair, denies any shortness of breath cough or wheezing, denies any chest pain, patient is steadily improving with the treatment of congestive heart failure. Chest x-ray continues to show steady improvement compared to baseline chest x-ray on admission. No labs were noted today. However reviewed the labs from yesterday, BUN was 20 creatinine 1.46 slightly higher compared to previous creatinine in the previous few days Objective - Vital Signs Vital signs: Vital Signs Temp 97.7 F 01/14/24 11:32 Pulse 60 01/14/24 11:32 Resp 17 01/14/24 11:32 BP 155/75 01/14/24 11:32 Pulse Ox 100 01/14/24 11:32 FiO2 Intake & Output 01/13/24 01/14/24 01/14/24 18:59 06:59 18:59 Intake Total 1378 220 120 Output Total 3050 725 700 Balance -6844 -143 -796 Weight 86 kg Intake: IV 20 10 Invasive Line 1 20 10 Oral 1378 200 110 Output: Urine 3050 725 700 Other: Voiding Method Urinal Urinal Urinal # Voids 2 - Exam GENERAL EXAM: 58-year-old male, in no distress, on room air. HEAD: Normocephalic. Right forehead laceration and left forehead abrasion EYES: Normal reaction of pupils, equal size. NOSE: Clear with pink turbinates. THROAT: No erythema or exudates. NECK: No masses, no JVD. CHEST: No chest wall deformity. LUNGS: Clear bilaterally no crackles rhonchi or wheezes CVS: S1 and S2 normal with no audible murmur, regular rhythm. No extra heart sounds ABDOMEN: No hepatosplenomegaly, active bowel sounds, no guarding or rigidity. SKIN: No rashes CENTRAL NERVOUS SYSTEM: Alert oriented x 3 no gross focal deficit EXTREMITIES: Left AKA incision is approximated with danna, no erythema, wound drainage. No clubbing, or cyanosis. Peripheral pulses are intact. - Labs CBC & Chem 7: 01/12/24 07:13 01/13/24 06:39 Labs: Microbiology - Last 24 Hours (Table) 01/11/24 04:45 Blood Culture - Preliminary Blood 01/11/24 04:30 Blood Culture - Preliminary Blood Assessment and Plan Assessment: Impression: Acute hypoxic respiratory failure secondary to acute congestive heart failure with reduced ejection fraction History of left foot gangrene status post amputation on 12/14/2023 with poor wound healing History of left above-knee amputation 01/02/2024 Anemia of chronic disease Status post fall but negative intracranial hemorrhage or mass effect and no cervical spine fracture patient sustained facial lacerations only and soft tissue swelling History of chronic kidney disease stage III Peripheral vessel occlusive disease and previous bilateral femoral-popliteal bypass Benign essential hypertension Dyslipidemia Underlying COPD but inactive Former smoker quit in September 08, 2023 Recommendation: Continue present supportive care measures Continue diuretics Continue to monitor renal profile' Continue updrafts/DuoNeb Will continue to follow. Will clear for discharge once cleared by cardiology. Time with Patient: Less than 30
--- NOTE | 2024-01-14 14:45 | P.DS ---
Providers Date of admission: 01/11/24 04:57 Expected date of discharge: 01/14/24 Attending physician: Jeri Staton Consults: 01/11/24 04:58 Consult Physician Routine Consulting Provider: Jonathon Laguna Consult Reason/Comments: copd, hypoxic resp failure. new onset chf Do you want consulting provider notified?: Yes 01/13/24 14:16 Consult Physician Routine Consulting Provider: Marcos Payne Consult Reason/Comments: post AKA evaluation of site Do you want consulting provider notified?: Yes, Notify in am 01/13/24 15:42 Consult Physician Urgent Consulting Provider: Ted Barrientos Consult Reason/Comments: depression Do you want consulting provider notified?: Already Contacted Primary care physician: Kierra Fisher DO Hospital Course: Final diagnosis Recurrent Fall without syncope with bilateral hip pain, with left forehead abrasion Acute on chronic systolic CHF, with mild low EF at 45% 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 Recurrent normocytic hypochromic anemia. S/p 2 minutes of blood transfusion. Surgery team on the case History of peripheral vascular disease with chronic critical left lower extremity ischemia s/p left common femoral and endarterectomy and left femoral- popliteal bypass Left sided renal mass CKD stage IV COPD Nicotine dependence Anxiety and depression GI prophylaxis DVT prophylaxis No code Discharge disposition Patient is being discharged in a stable condition with guarded prognosis to [facility]. Patient will follow-up with Dr. Fisher in the outpatient setting upon discharge. Patient is to continue with close outpatient follow-up with vascular surgery as well as cardiology as scheduled. Total time taken is greater than 35 minutes. Hospital course This is a 58-year-old male who was recently admitted with concerns for increased weakness with mild hypoxia and volume overload with concerns of fluid overload and acute on chronic CHF exacerbation. Patient was at F and reports was attempting to get up to go to the bathroom and fell striking his head and was maintained on blood thinners. Patient also with concerns of possible surgical site infection being monitored by vascular surgery. Patient was evaluated by Dr. 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 Patient to follow-up with cardiology outpatient and will continue on current medication regimen as mentioned below. Recommend limiting narcotic and BRONC BUSTER agents as patient's mentation is much improved. Please refer to other consultation notes for further HPI. Patient has been cleared by consultations. Currently no reports of chest pain, shortness of breath, or palpitations. Patient is afebrile. No reports of nausea or vomiting and patient is tolerating diet. Patient will be going to [facility] today. Guarded prognosis and high risk for readmissions given patient's significant comorbidities. Physical exam: Gen: This is a 58-year-old male who is awake, alert and oriented x 3, well- developed, elderly appearing, thin built HEENT: Head is atraumatic, normocephalic. Pupils equal, round. Sclerae is anicteric. NECK: Supple. No JVD. No lymphadenopathy. No thyromegaly. LUNGS: Clear to auscultation. No wheezes or rhonchi. No intercostal retr actions. HEART: S1, S2 are muffled ABDOMEN: Soft. Bowel sounds are present. No masses. No tenderness. EXTREMITIES: No pedal edema. No calf tenderness. Left AKA noted with stump flat sorting machine clerk NEUROLOGICAL: Patient is awake, alert and oriented x3. Cranial nerves 2 through 12 are grossly intact. Diffusely weak Please refer to medication reconciliation sheet for a list of medications. The impression and plan of care has been dictated by Yolie Ivy, Nurse Practitioner as directed. Dr. Ivon MD I have performed a history and examination and MDM of this patient, discussed the same with the dictator, and agree with the dictator's assessment and plan as written ,documented as a scribe. Based on total visit time, I have performed more than 50% of the visit. Patient Condition at Discharge: Stable Plan - Discharge Summary New Discharge Prescriptions: New Spironolactone [Aldactone] 12.5 mg PO DAILY tab Bumetanide [BUMEX] 0.5 mg PO DAILY tab Ipratropium-Albuterol Nebulize [Duoneb 0.5 mg-3 mg/3 ml Soln] 3 ml INHALATION RT-Q4H each Dapagliflozin Propanediol [Farxiga] 10 mg PO DAILY tab Continue Acetaminophen [Tylenol Arthritis] 650 mg PO Q6H PRN PRN Reason: Mild Pain (Scale 1 To 3) Tamsulosin [Flomax] 0.4 mg PO DAILY Metoprolol Succinate (ER) [Toprol XL] 25 mg PO DAILY Calcium Carbonate/Vitamin D3 [Calcium 600 mg-Vit D3 5 mcg (200 unit)] 1 tab PO DAILY Atorvastatin [Lipitor] 40 mg PO HS tab Mirtazapine [Remeron] 15 mg PO HS tab Thiamine [Vitamin B-1] 100 mg PO DAILY #30 tab Naloxone HCl [Narcan] 4 mg NASAL ONCE PRN PRN Reason: overdose Citalopram Hydrobromide [CeleXA] 40 mg PO DAILY Rivaroxaban [Xarelto] 2.5 mg PO BID Aspirin EC [Ecotrin Low Dose] 81 mg PO DAILY Ascorbic Acid [Vitamin C] 500 mg PO DAILY Magnesium Oxide [Mag-Ox] 400 mg PO BID tab Sennosides [Senokot] 8.6 mg PO BID tab Pantoprazole [Protonix] 40 mg PO AC-BRKFST tab Discontinued Amiodarone [Cordarone] 200 mg PO BID tab Sodium Bicarbonate Tab 650 mg PO BID tab Gabapentin [Neurontin] 300 mg PO BID #4 cap oxyCODONE-APAP 7.5-325MG [Percocet 7.5-325 mg] 1 tab PO Q12H PRN #10 tab PRN Reason: Moderate Pain (Scale 4 To 6) Discharge Medication List Atorvastatin [Lipitor] 40 mg PO HS tab 09/10/23 [Rx] Mirtazapine [Remeron] 15 mg PO HS tab 09/10/23 [Rx] Thiamine [Vitamin B-1] 100 mg PO DAILY #30 tab 09/19/23 [Rx] Acetaminophen [Tylenol Arthritis] 650 mg PO Q6H PRN 11/05/23 [History] Citalopram Hydrobromide [CeleXA] 40 mg PO DAILY 11/05/23 [History] Naloxone HCl [Narcan] 4 mg NASAL ONCE PRN 11/05/23 [History] Metoprolol Succinate (ER) [Toprol XL] 25 mg PO DAILY 11/22/23 [History] Rivaroxaban [Xarelto] 2.5 mg PO BID 11/22/23 [History] Tamsulosin [Flomax] 0.4 mg PO DAILY 11/22/23 [History] Ascorbic Acid [Vitamin C] 500 mg PO DAILY 12/05/23 [History] Aspirin EC [Ecotrin Low Dose] 81 mg PO DAILY 12/05/23 [History] Calcium Carbonate/Vitamin D3 [Calcium 600 mg-Vit D3 5 mcg (200 unit)] 1 tab PO DAILY 12/05/23 [History] Magnesium Oxide [Mag-Ox] 400 mg PO BID tab 12/20/23 [Rx] Sennosides [Senokot] 8.6 mg PO BID tab 12/20/23 [Rx] Pantoprazole [Protonix] 40 mg PO AC-BRKFST tab 01/09/24 [Rx] Bumetanide [BUMEX] 0.5 mg PO DAILY tab 01/14/24 [Rx] Dapagliflozin Propanediol [Farxiga] 10 mg PO DAILY tab 01/14/24 [Rx] Ipratropium-Albuterol Nebulize [Duoneb 0.5 mg-3 mg/3 ml Soln] 3 ml INHALATION RT-Q4H each 01/14/24 [Rx] Spironolactone [Aldactone] 12.5 mg PO DAILY tab 01/14/24 [Rx] Follow up Appointment(s)/Referral(s): Kierra Fisher DO [Primary Care Provider] - 1-2 days Marcos Payne DO [STAFF PHYSICIAN] - 1 Week Activity/Diet/Wound Care/Special Instructions: Patient is going to [facility] as tolerated Follow-up with vascular surgery outpatient Continue taking medications as prescribed Follow-up cardiology outpatient Continue heart healthy diet with fluid restrictions of 1500 mL daily Discharge Disposition: TRANSFER TO SNF/ECF
[2024-01-14 15:54] VITALS: BP 145/75; PULSE 62; TEMP 98
[2024-01-14] MEDS ORDERED: MIRTAZAPINE 15 MG TAB PO SCH (21:00)
[2024-01-14] MEDS ORDERED: SENNOSIDES 8.6 MG TAB PO SCH (21:00)
--- NOTE | 2024-01-14 21:51 | P.CN ---
Psychiatric Consult - . Consult date: 01/14/24 Consult:: 01/14/24 21:50 CONSULTATION Reason for consult: Depression and anxiety. identifying Data: The patient is 62 years old, single white male/ who lives in [place], [place]. Reason for admission: Falls. History of present illness: The patient was admitted from a rehab, where he was recently discharged, after two falls. The patient AKA 2 weeks ago. During this evaluation, the patient reported being somewhat depressed and conc erned about is AKA. He is worrying about capacity to regain walking. The patient noted that yesterday, he felt hopeless but has not been feeling depressed anymore. He indicated that his anxiety started 12 years ago related to work stress. He was placed on Xanax, which he took for 12 years. The Xanax was replaced with Remeron and Celexa. He has well with this combination. His symptoms of anxiety consist of sleep impairment, being tense, worrying a lot, mood swings, feeling uptight and squeezy feeling in the stomach. He denied having panic attacks. He denied having feelings of worthlessness, hopelessness, depression, suicidal or homicidal ideations. He has no h/o out-pt or in-pt psychiatric treatment outside seeing PCP to get his psychiatric medications. On leading questions, admitted to Anxiety. Denied being hopeless, worthless, suicidal, or homicidal. The patient denied any symptoms of paranoia, or any other delusional thinking, A/V hallucinations. Current and past medications: As stated above. Out- pt follow-up: Sees PCP for his medications. History of past psychiatric illness: No other than stated in HPI. No history of suicidal or homicidal ideations or behavior. Past medical history: PVD, H/O of blood clots in both legs, BKA and AKA Substance abuse history: Recovering alcoholic. Sober for 4 months. Family history of psychiatric disorder: None. No h/o suicide or homicide MSE: Alert and attentive Orientation X3. Pleasant and cooperative. Psychomotor activity: Speech: Normal tone, quality, and quantity Mood: Anxious. Affect: Consistent with mood. SI or HI: None Thought content: Normal Thought process: Normal Perceptual disturbance: Normal Cognition: Intact Judgement and Insight: Intact Diagnosis: CHACHO. Plan: Continue Celexa at current dose. Titrate it to 40 mg. Add Remeron 7.5 mg. Titrate it to 15 mg. Orders given to the nurse. Patient can be discharged to out-pt, nutrition manager to facilitate out-pt psychiatric appointment within 7 days of discharge.
[2024-01-15] MEDS ORDERED: ASCORBIC ACID 500 MG TAB PO SCH (09:00)
== END 2024-01-14 17:13 | DRG 194 ==
LOC: EC 01:43 → 3SCARD 04:57
PROVIDERS: ADMIT Hospitalist; ATTEND Hospitalist
DX: I13.0 Hypertensive heart and chronic kidney disease with heart failure and stage 1 through stage 4 chronic kidney disease, or unspecified chronic kidney disease (principal); I25.10 Atherosclerotic heart disease of native coronary artery without angina pectoris; E11.51 Type 2 diabetes mellitus with diabetic peripheral angiopathy without gangrene; I42.9 Cardiomyopathy, unspecified; I48.91 Unspecified atrial fibrillation; I50.23 Acute on chronic systolic (congestive) heart failure; I95.1 Orthostatic hypotension; J96.01 Acute respiratory failure with hypoxia; J44.9 Chronic obstructive pulmonary disease, unspecified; S01.81XA Laceration without foreign body of other part of head, initial encounter; Y92.003 Bedroom of unspecified non-institutional (private) residence as the place of occurrence of the external cause; W01.0XXA Fall on same level from slipping, tripping and stumbling without subsequent striking against object, initial encounter; T87.44 Infection of amputation stump, left lower extremity; N18.4 Chronic kidney disease, stage 4 (severe); R29.6 Repeated falls; T38.0X5A Adverse effect of glucocorticoids and synthetic analogues, initial encounter; D72.829 Elevated white blood cell count, unspecified; W06.XXXA Fall from bed, initial encounter; Z66 Do not resuscitate; Z95.828 Presence of other vascular implants and grafts; Z79.01 Long term (current) use of anticoagulants; Z79.82 Long term (current) use of aspirin; Z79.84 Long term (current) use of oral hypoglycemic drugs; Z79.899 Other long term (current) drug therapy; Z20.822 Contact with and (suspected) exposure to COVID-19; Z72.821 Inadequate sleep hygiene
CPT/HCPCS: 36415; 70450; 70486; 71045; 71046; 72125; 72128; 72131; 72170; 80048; 80053; 83735; 83880; 84484; 85025; 85610; 85730; 87040; 87636; 93005; 94640; 96361; 96374; 96375; 96376; 99291